=== PATIENT | female | born 1955 | race Two or more races ===

== ENCOUNTER 2020-08-10 09:19 | Day surgery (SDC) | payer OTHER, SELFPAY ==
[2020-08-08 11:25] VITALS: BMI 27.6
--- NOTE | 2020-08-09 12:16 | HO.ANESPROP2 ---
Documented by User: Betty Parker 08/09/20 12:17 HPI - Anesthesia Eval Consult details Narrative: 65yo F for EGD PMFSH Past Medical History Medical History Back pain, chronic Diabetes High cholesterol HTN (hypertension) Migraines Surgical History Surgical History Hx of cholecystectomy Hx of colonoscopy Hx of fusion of cervical spine Hx of rectal sphincterotomy Hx of tubal ligation Social History Social History Smoking Status: Current every day smoker Packs Per Day: 0.5 Cigarettes Per Day: 10.0 Years Smoked: 45 Smoked in Last 30 Days: Yes Use of substances other than those prescribed or required for medical reasons: No Advance Directives: No Advance Directives Information Provided: No Advance Directives on File: No Meds Allergies Allergy/AdvReac Type Severity Reaction Status Date / Time No Known Allergies Allergy Verified 08/08/20 11:14 Home Medications Medication Instructions Recorded Confirmed Type atenolol 75 mg PO DAILY 08/08/20 08/10/20 History cholecalciferol (vitamin D3) 25 mcg PO DAILY 08/08/20 08/08/20 History [Vitamin D3] clonazepam 0.5 mg PO BEDTIME 08/08/20 08/08/20 History cyclobenzaprine 10 mg PO BEDTIME 08/08/20 08/08/20 History docusate sodium [DOK] 100 mg PO BID PRN 08/08/20 08/08/20 History hydrochlorothiazide 25 mg PO DAILY 08/08/20 08/08/20 History lisinopril 20 mg PO DAILY 08/08/20 08/08/20 History metformin 1,000 mg PO BEDTIME 08/08/20 08/08/20 History metformin 500 mg PO DAILY 08/08/20 08/08/20 History simvastatin 20 mg PO BEDTIME 08/08/20 08/08/20 History Exam Exam Date and Time: August 09, 2020 1216 Height,Weight and Vital Signs: Height 5 ft 1 in Weight 66.224 kg Assessment and Plan Assessment Anesthesia Assessment: Chart Reviewed Documented by User: Vinicius Wright MD 08/10/20 10:31 [facility] Past Medical History Medical History Back pain, chronic Diabetes High cholesterol HTN (hypertension) Migraines Surgical History Surgical History Hx of cholecystectomy Hx of colonoscopy Hx of fusion of cervical spine Hx of rectal sphincterotomy Hx of tubal ligation Social History Social History Smoking Status: Current every day smoker Packs Per Day: 0.5 Cigarettes Per Day: 10.0 Years Smoked: 45 Smoked in Last 30 Days: Yes Use of substances other than those prescribed or required for medical reasons: No Advance Directives: No Advance Directives Information Provided: No Advance Directives on File: No Meds Allergies Allergy/AdvReac Type Severity Reaction Status Date / Time No Known Allergies Allergy Verified 08/08/20 11:14 Home Medications Medication Instructions Recorded Confirmed Type atenolol 75 mg PO DAILY 08/08/20 08/10/20 History cholecalciferol (vitamin D3) 25 mcg PO DAILY 08/08/20 08/08/20 History [Vitamin D3] clonazepam 0.5 mg PO BEDTIME 08/08/20 08/08/20 History cyclobenzaprine 10 mg PO BEDTIME 08/08/20 08/08/20 History docusate sodium [DOK] 100 mg PO BID PRN 08/08/20 08/08/20 History hydrochlorothiazide 25 mg PO DAILY 08/08/20 08/08/20 History lisinopril 20 mg PO DAILY 08/08/20 08/08/20 History metformin 1,000 mg PO BEDTIME 08/08/20 08/08/20 History metformin 500 mg PO DAILY 08/08/20 08/08/20 History simvastatin 20 mg PO BEDTIME 08/08/20 08/08/20 History Documented by User: David Maravilla MD 08/10/20 10:59 PMFSH Past Medical History Medical History Back pain, chronic Diabetes High cholesterol HTN (hypertension) Migraines Surgical History Surgical History Hx of cholecystectomy Hx of colonoscopy Hx of fusion of cervical spine Hx of rectal sphincterotomy Hx of tubal ligation Social History Social History Smoking Status: Current every day smoker Packs Per Day: 0.5 Cigarettes Per Day: 10.0 Years Smoked: 45 Smoked in Last 30 Days: Yes Use of substances other than those prescribed or required for medical reasons: No Advance Directives: No Advance Directives Information Provided: No Advance Directives on File: No Meds Allergies Allergy/AdvReac Type Severity Reaction Status Date / Time No Known Allergies Allergy Verified 08/08/20 11:14 Home Medications Medication Instructions Recorded Confirmed Type atenolol 75 mg PO DAILY 08/08/20 08/10/20 History cholecalciferol (vitamin D3) 25 mcg PO DAILY 08/08/20 08/08/20 History [Vitamin D3] clonazepam 0.5 mg PO BEDTIME 08/08/20 08/08/20 History cyclobenzaprine 10 mg PO BEDTIME 08/08/20 08/08/20 History docusate sodium [DOK] 100 mg PO BID PRN 08/08/20 08/08/20 History hydrochlorothiazide 25 mg PO DAILY 08/08/20 08/08/20 History lisinopril 20 mg PO DAILY 08/08/20 08/08/20 History metformin 1,000 mg PO BEDTIME 08/08/20 08/08/20 History metformin 500 mg PO DAILY 08/08/20 08/08/20 History simvastatin 20 mg PO BEDTIME 08/08/20 08/08/20 History Exam Airway Mallampati Class: II TM Dist: >3cm Neck ROM: Full Heart: rrr Lungs: nl Other: ao Assessment and Plan Assessment Anesthesia Assessment: Anesthesia Plan Discussed, Smoking Cess. Discussed and Chart Reviewed Final Anesthetic Review NPO: No ASA Class: III Final Preanesthetic Review: No Changes in Pt Med Stat, Meds/Allgs Chart Reviewed, Consent Obtained/Reviewed and Anes Risks/Benef Reviewed Patient Risk: Intermediate Anesthetic Plan Anesthetic Plan: MAC: Disposition: Standard PACU
[2020-08-10 09:47] VITALS: BP 148/76; PULSE 65; RESP 18; TEMP 36.4; O2SAT 100
[2020-08-10 09:49] LABS: Glucose, Whole Blood 159 mg/dL (60-115)
--- NOTE | 2020-08-10 09:58 | P.HPSUR_ITS ---
Pre-Procedural Eval Section B Chief Complaint: Epigastric Pain Details of Present Illness: 6 months of cramping epigastric pain, Relevant Family History (Specify if Yes): No Relevant Social History: Tobacco Use Present Medications: see Short Stay Collaborative assessment Medical History: Significant History (see below) History of Previous Operations: Relevant previous surgery/procedure and date(s) (cholecystectomy,migraine, DM, HTN, back surgery) Allergies: Allergies Allergy/AdvReac Type Severity Reaction Status Date / Time No Known Allergies Allergy Verified 08/08/20 11:14 Review of Systems Sugical H&P ROS: Negative: Constitution, Cardiovascular, Respiratory, Neurological, Psychiatric, Hem-Onc, Allergic/Immunologic, Gastrointestinal, Genitourinary, Musculoskeletal, Integumentary, Endocrine and Eyes/Ears/Nose/Throat Exam Surgical H&P Exam: Normal: HEENT, Normal: Heart, Normal: Lungs, Normal: Extremit ies, Normal: Skin and Normal: Neurological and Significant Findings: Abdomen (tender epigastrium) Plan Diagnosis/Plan: Unchanged Patient has been examined and remains a candidate for the planned procedure, EGD
--- NOTE | 2020-08-10 10:00 | PM.OP ---
Brief Operative Note Date of procedure: 08/10/20 Pre-op diagnosis: epigastric pain Post-op diagnosis: same Procedure: egd, see op note Surgeon: Misha Valencia MD Anesthesia: MAC Estimated blood loss (mL): 0 Condition: stable Disposition: PACU
--- NOTE | 2020-08-10 10:01 | W.PM.OPN ---
Operative Note Operative Note Narrative: Procedure Description: EGD FLEXIBLE TRANSORAL UPPER GASTROINTESTINAL ENDOSCOPY UPPER ENDOSCOPY Consent: Indications for the procedure and potential complications of bleeding, perforation, reaction to medications and missed diagnosis were discussed with the patient and informed consent was obtained. Instrument: Olympus GIF H 190 J mid size upper endoscope Monitoring: Vital signs and clinical assessment, continuous EKG monitoring, Pulse oximetry, Carbon Dioxide monitoring and blood pressure monitoring were done throughout the procedure. Procedure: The patient was placed in the left lateral decubitis position and pre-procedure medications were administered and a bite block was placed. The endoscope was inserted into the mouth and advanced under direct vision to the third part of duodenum. A careful inspection was made as the upper endoscope was withdrawn including a retroflexed examination of the proximal stomach; Findings and interventions are described below. Findings: Larynx:normal Esophagus: GE junction at 38 cm, diaphragm hiatus at 38 cm, no varices, mild LA grade A esophagitis noted Stomach: Patchy gastric erythema. Biopsies were obtained. Grade 2 flap valve on retroflexed examination of the cardia. Duodenum: bulabr duodenitis, second part of duodenum with severe villous atrophy, scalloped coarse and irregular mucosa , bx taken Intervention: Biopsies as noted above Impression/Findings: esophagitis gastritis duodenitis, enteropathy PLAN: await results might need celiac serology and testing, will await biopsy results
[2020-08-10] MEDS: Lactated Ringers 1,000 ML 100 ML IVCONT (10:02)
[2020-08-10 11:22] VITALS: BP 163/83; PULSE 76; RESP 16; TEMP 36.2; O2SAT 100
[2020-08-10 11:35] VITALS: BP 123/68; PULSE 69; RESP 16; TEMP 36.2; O2SAT 99
--- NOTE | 2020-08-10 12:03 | HO.POSTANES ---
Post Anesthesia Evaluation Post Anesthesia Evaluation Vital Signs: Vital Signs Temp Pulse Resp BP Pulse Ox 08/10/20 11:35 97.2 F 69 16 123/68 99 08/10/20 11:22 97.2 F 76 16 163/83 H 100 08/10/20 09:47 97.5 F 65 18 148/76 H 100 Anesthesia: Monitored Mental Status: Awake Pain Control: Satisfactory Nausea/Vomiting: None Hydration: Adequate Anesthesia-Related Issues: No Anes. Related Issues
== END 2020-08-10 12:31 | disposition home or self-care (01) ==
PROVIDERS: PCP Nurse Practitioner Family; Visit Provider Internal Medicine Gastroenterology
PROC: 0DJ08ZZ Inspection of Upper Intestinal Tract, Via Natural or Artificial Opening Endoscopic (ICD-10-PCS; CPT 43235; principal; 2020-08-10 10:40)
DX: K29.50 Unspecified chronic gastritis without bleeding (principal); K20.90 Esophagitis, unspecified without bleeding; K29.80 Duodenitis without bleeding; K63.9 Disease of intestine, unspecified; K44.9 Diaphragmatic hernia without obstruction or gangrene; I10 Essential (primary) hypertension; E11.9 Type 2 diabetes mellitus without complications; E55.9 Vitamin D deficiency, unspecified; E78.00 Pure hypercholesterolemia, unspecified; Z79.84 Long term (current) use of oral hypoglycemic drugs; Z79.899 Other long term (current) drug therapy; Z90.49 Acquired absence of other specified parts of digestive tract; F17.210 Nicotine dependence, cigarettes, uncomplicated
CPT/HCPCS: 43239; 82947; 88305; 88342

== ENCOUNTER 2020-08-31 10:30 | Outpatient (REF) | payer OTHER, SELFPAY ==
--- NOTE | 2020-08-31 | MM_ITS ---
EXAMINATION: MM SCREENING DIGITAL BREAST TOMOSYNTHESIS, BILATERAL CLINICAL INFORMATION: Screening. Asymptomatic. The lifetime risk of breast cancer based on the Tyrer-Cuzick Model is 4.1%. COMPARISON: Mammography: March 11, 2019 and studies dating back to August 04, 2012 TECHNIQUE: Digital breast tomosynthesis is performed in both the craniocaudal and mediolateral oblique views along with computer-aided detection (CAD). Synthesized 2D images are generated from the tomosynthesis. FINDINGS: The breasts are heterogeneously dense, which may obscure small masses (ACR BI-RADS breast composition Category c). There are no significant masses, abnormal calcifications, or other abnormalities. MM/MM tomosynthesis screening BI IMPRESSION: There are no significant changes from prior study. ASSESSMENT: BI-RADS 1: Negative RECOMMENDATION: Routine annual mammography screening. This patient's information was entered into a reminder system with a target due date for their next mammogram.
== END 2020-08-31 10:31 | disposition home or self-care (01) ==
LOC: HO.MAMMO 10:30
PROVIDERS: PCP Nurse Practitioner Family; Visit Provider Nurse Practitioner Family
DX: Z12.31 Encounter for screening mammogram for malignant neoplasm of breast (principal)
CPT/HCPCS: 77063; 77067

== ENCOUNTER 2020-09-08 12:22 | Outpatient (REF) | payer OTHER, SELFPAY | END 2020-09-08 12:23 | disposition home or self-care (01) | LOC: HO.LAB 12:22 | PROVIDERS: Visit Provider Internal Medicine | DX: Z20.828 Contact with and (suspected) exposure to other viral communicable diseases (principal) | CPT/HCPCS: C9803; U0003 ==

== ENCOUNTER → 2020-09-27 10:35 | Outpatient (BNVA) | payer OTHER, SELFPAY | PROVIDERS: PCP Nurse Practitioner Family; Referring Provider Nurse Practitioner Family; Visit Provider Anesthesiology | DX: M47.816 Spondylosis without myelopathy or radiculopathy, lumbar region (principal) | CPT/HCPCS: 99202 ==

== ENCOUNTER → 2021-03-08 10:52 | Outpatient (BNVA) | payer OTHER, SELFPAY | PROVIDERS: PCP Nurse Practitioner Family; Visit Provider Nurse Practitioner | DX: Z13.89 Encounter for screening for other disorder (principal) | CPT/HCPCS: Q3014 ==

== ENCOUNTER → 2021-05-23 12:21 | Outpatient (BNVA) | payer OTHER, SELFPAY | PROVIDERS: PCP General Practice; Referring Provider General Practice; Visit Provider Internal Medicine Cardiovascular Disease | DX: I10 Essential (primary) hypertension (principal); E78.00 Pure hypercholesterolemia, unspecified | CPT/HCPCS: 93005; 99202 ==

== ENCOUNTER 2021-05-28 10:10 | Outpatient (REF) | payer OTHER, SELFPAY ==
[2021-05-28 11:14] LABS: Anion Gap 15 (12-20); Blood Urea Nitrogen 17 mg/dL (9-16); Calcium 10.1 mg/dL (8.4-10.2); Carbon Dioxide 28 mmol/L (22-29); Chloride 103 mmol/L (96-108); Estimated Glomerular Filt Rate 54; Potassium 4.6 mmol/L (3.3-5.1); Sodium 141 mmol/L (135-145)
[2021-05-28 11:41] LABS: Glucose Urine UA >=1000 MG/DL (NEG); Leukocyte Esterase Urine NEG (NEG); Nitrite Urine NEG (NEG); Specific Gravity - Urine 1.015 (1.005-1.025); Urine Blood NEG (NEG); Urine Ketones NEG (NEG); Urine Protein NEG (NEG-TRACE)
[2021-05-28 11:56] LABS: Appearance Urine CLEAR; Color Urine YELLOW
[2021-05-28 12:00] LABS: RBC Urine 0-2 /HPF (0); Squamous Epithelial Cell Urine 1+ /LPF; WBC Urine 0-2 /HPF (0-4)
[2021-05-28 12:10] LABS: Creatinine Urine 58.14 mg/dL; Microalbum/Creatinine Ratio Ur 135.8 ug/mg cr; Protein/Creatinine Ratio, Ur 0.26 (<0.2); Total Protein Urine Random 15 mg/dL (<12)
== END 2021-05-28 10:11 | disposition home or self-care (01) ==
LOC: HO.LAB 10:10
PROVIDERS: PCP General Practice; Visit Provider Internal Medicine Nephrology
DX: R80.1 Persistent proteinuria, unspecified (principal); N18.2 Chronic kidney disease, stage 2 (mild); E11.21 Type 2 diabetes mellitus with diabetic nephropathy; N20.0 Calculus of kidney; F17.200 Nicotine dependence, unspecified, uncomplicated
CPT/HCPCS: 36415; 80051; 81001; 82043; 82310; 82565; 84156; 84520

== ENCOUNTER → 2021-07-09 10:24 | Outpatient (REF) | payer OTHER, SELFPAY ==
--- NOTE | 2021-07-09 10:26 | CA_ITS ---
Transthoracic Echocardiogram Patient (Last, First, Middle): Stephanie Luz, Gender: Female Date of : 1955 Age: 66 Procedure Date: 07/09/2021 Procedure Type: Transthoracic Echocardiogram Location: OP Height: 154.94 cm Weight: 70.31 kg BSA: 1.70 m2 Heart Rate: bpm BP: 128 / 80 mmHg Seo Manager: Referring MD: Kaushik Horn MD Symptoms: I42.9 - Cardiomyopathy, unspecified Study Quality: Fair ECG Rhythm: Sinus Conclusions: - Normal left ventricular size and systolic function. - There is mildly increased left ventricular wall thickness. - Normal left ventricular filling pressures. - Normal right ventricular cavity size and systolic function. - The left atrium is moderately dilated. - There is no evidence of pericardial effusion. Findings Left Ventricle Normal left ventricular size and systolic function. There is mildly increased left ventricular wall thickness. The visually estimated ejection fraction is between 55-60%. There is no evidence of regional wall motion abnormalities. Diastolic function is indeterminate on the basis of available data. Spectral Doppler is indicative of an impaired relaxation filling pattern. Normal left ventricular filling pressures. Right Ventricle Normal right ventricular cavity size and systolic function. Atria The left atrium is moderately dilated. Aortic Valve Normal aortic valve structure and function. There is no aortic valve stenosis. There is no aortic valve regurgitation. Mitral Valve Normal mitral valve structure and function. There is no mitral valve regurgitation. There is no mitral valve stenosis. Pulmonic Valve Normal pulmonic valve structure and function. There is no pulmonic valve regurgitation. Tricuspid Valve Normal tricuspid valve structure and function. There is no tricuspid valve regurgitation. Tricuspid regurgitation envelope is inadequate for calculation of right ventricular systolic pressure. Normal right atrial pressure. Great Vessels The pulmonary artery was not well visualized. There is mild dilatation of the ascending aorta. Venous The inferior vena cava is normal in size and collapses greater than 50% with inspiration. Pericardium/Pleural There is no evidence of pericardial effusion. Prior Study Comparison No prior study available for comparison. Measurements 2D Linear Measurements IVSd: 1.03 0.6-0.9/0.6-1.0 cm LVIDd: 4.50 3.9-5.3/4.2-5.9 cm LVIDd Index: 2.65 2.4-3.2/2.2-3.1 cm/m2 LVIDs: 2.68 2.0-3.6 cm LVPWd: 1.04 0.7-1.1 cm Ao Root: 2.90 2.1-3.5 cm LA Diam: 3.50 2.7-3.8/3.0-4.0 cm LAIDs Index: 2.06 1.5-2.3 cm/m2 LV Mass: 200.17 67-162/88-224 g LV Mass Index: 117.75 43-95/49-115 g/m2 LVOT Diam: 2.00 3.0+(-)1.3 cm Mitral Valve MV Pk E: 0.55 MV PK A: 0.68 MV Decel Time: 254.00 E/A: 0.80 E'Lateral: 6.64 E'Medial: 6.85 E/E' Med: 8.10 E/E' Lat: 8.30 PHT: 74.00 MVA PHT: 2.97 Decel [place]: 2.18 Aortic Valve AoV Pk Bishop: 1.26 AoV Mn Bishop: 0.79 AoV VTI: 0.30 AoV Pk Grad: 6.00 Aov Mn Grad: 3.00 CONCEPCION Cont.VTI: 2.01 LVOT LVOT Pk Bishop: 0.82 LVOT Mn Bishop: 0.51 LVOT VTI: 0.19 LVOT Pk Grad: 3.00 LVOT Mn Grad: 1.00 LVOT Diam: 2.00 LVOT Area: 3.14 Diastolic Function MV Pk E: 0.55 MV Pk A: 0.68 E/A: 0.80 E'Medial: 6.85 E/E' Med: 8.10 E' Laterial: 6.64 E/E' Lat: 8.30 Tricuspid Valve TR Pk Bishop: 2.24 TR Pk Grad: 20.00 Great Vessels Aorta Ao Root-2D: 2.90 2.0-3.7 cm Ao Asc: 3.30 2.1-3.4 cm Pulmonary Valve PV Pk Bishop: 0.75 Peak PV Grad: 2.00 Updated in Other Vendor System with Status of Final Kaushik Horn MD electronically signed on 07/09/2021 12:42:56 PM with status of Final
== END ==
LOC: HO.CARD 10:24
PROVIDERS: PCP General Practice; Visit Provider Internal Medicine Cardiovascular Disease
DX: I42.9 Cardiomyopathy, unspecified (principal); I10 Essential (primary) hypertension
CPT/HCPCS: 93306

== ENCOUNTER → 2021-09-07 12:49 | Outpatient (BNVA) | payer OTHER, SELFPAY | PROVIDERS: PCP General Practice; Visit Provider Nurse Practitioner | DX: Z13.89 Encounter for screening for other disorder (principal) | CPT/HCPCS: Q3014 ==

== ENCOUNTER 2021-09-24 12:55 | Outpatient (REF) | payer OTHER, SELFPAY ==
[2021-09-24 13:54] LABS: Anion Gap 12 (12-20); Blood Urea Nitrogen 16 mg/dL (9-16); Calcium 10.1 mg/dL (8.4-10.2); Carbon Dioxide 30 mmol/L (22-29); Estimated Glomerular Filt Rate 59
[2021-09-24 14:01] LABS: Chloride 106 mmol/L (96-108); Sodium 144 mmol/L (135-145)
[2021-09-24 14:23] LABS: Appearance Urine CLEAR; Color Urine YELLOW; Glucose Urine UA >=1000 MG/DL (NEG); Leukocyte Esterase Urine NEG (NEG); Nitrite Urine NEG (NEG); Specific Gravity - Urine 1.015 (1.005-1.025); Urine Blood TRACE (NEG); Urine Ketones NEG (NEG); Urine Protein NEG (NEG-TRACE)
[2021-09-24 14:33] LABS: Squamous Epithelial Cell Urine 1+ /LPF
[2021-09-24 14:34] LABS: WBC Urine 0 /HPF (0-4)
[2021-09-24 14:49] LABS: Creatinine Urine 45.57 mg/dL; Microalbum/Creatinine Ratio Ur 70.2 ug/mg cr; Total Protein Urine Random < 7 mg/dL (<12)
== END 2021-09-24 12:56 | disposition home or self-care (01) ==
LOC: HO.LAB 12:55
PROVIDERS: PCP General Practice; Visit Provider Internal Medicine Nephrology
DX: E11.22 Type 2 diabetes mellitus with diabetic chronic kidney disease (principal); E11.21 Type 2 diabetes mellitus with diabetic nephropathy; N18.2 Chronic kidney disease, stage 2 (mild); F17.200 Nicotine dependence, unspecified, uncomplicated; R80.9 Proteinuria, unspecified; N20.0 Calculus of kidney
CPT/HCPCS: 36415; 80051; 81001; 82043; 82310; 82565; 84156; 84520

== ENCOUNTER 2021-09-25 14:00 | Outpatient (RCR) | payer OTHER, SELFPAY ==
[2021-09-03 12:49] VITALS: BP 128/80; PULSE 70; O2SAT 95
--- NOTE | 2021-09-03 13:59 | MHC.PT.EP ---
[facility] [place] Office [place] Office [place] Office [address] [place] [address] [address]boza [address] [phone] F: [phone] F: [phone] F: [phone] F: [phone] Physical Therapy Plan of Care Date of Evaluation: Date of Surgery: Diagnosis: This is a 66 yo female presenting to skilled PT with a script for vertigo Assessment: This is a 66 yo female presenting to skilled PT with a script for vertigo. Patient reporting dizziness for a number of years now (since at least 2013). She reports an increase in dizziness when turning to the R and rolling to the R. She reports dizziness lasts only for a few seconds. Symptoms are described as the room spinning. She has tried botox without help. She also had a hearing test which was normal. No new falls and no imaging noted. She tried PT in the past for these symptoms but did not go consistently enough. Examination shows normal oculomotor tests except for horizontal saccades, ? head thrust but patient having a hard time with cues to relax during test, (-) VBI B, and WFL cervical AROM. She was (+) for BPPV with dorita-hallpike and R steve maneuver (patient became nauseous and asked to be reassessed next session). She demos normal scores and sway with balance tests (DGI and Maurisio SOPT). S/S consistent with R PC BPPV and would benefit from PT 2x/wk for 4wks to address impairments, implement HEP and optimize functional mobility. Frequency and Duration: The patient will be seen 2x/wk for 5wks Short Term Goals: Chick Grader Goals: I in HEP No nystagmus or symptoms in any testing positions No LOB noted and normal scores on balance tests Return to work in full Treatment Plan: Modalities to reduce pain, spasms and effusion. Manual therapy to restore motion and function. Therapeutic exercise to improve strength and flexibility. Neuromuscular re-education for posture and balance. Therapeutic activities to return to functional activities of daily living. Electronically signed by: Lyric Serrano PT Please sign and return to therapist. Thank you for your referral.
--- NOTE | 2021-10-25 11:41 | MHC.PT.DC ---
[facility] [place] Office [place] Office [place] Office [address] Angie Barboza [address] [phone] F: [phone] F: [phone] F: [phone] F: [phone] Physical Therapy Discharge Report Diagnosis: This is a 66 yo female presenting to skilled PT with a script for vertigo Date of Surgery: Date of Evaluation: 09/03/21 Date of Discharge: 10/25/21 Treatments to Date: 7 Cancellations to Date: 0 No Shows to Date: 0 Discharge Status: Discharge Summary: Horizontal canal and L hallpike were (-) for nystagmus and sx. WIth R Hallpike, pt (+) fos dizziness andd R upbeat torsional nystagmus. Performed Amada and upon re-assessment, no sx or nystagmus. Performed a precautionary roll. Re-assess next visit. The patient has not bee seen since 09/25/21. Her current status is unknown. She is discharged from this physical therapy plan of care. Electronically signed by: Raquel Felipe PT, DPT Please sign and return to therapist. Thank you for your referral.
== END 2021-10-25 11:42 | disposition home or self-care (01) ==
LOC: HO.PT 14:00
PROVIDERS: Visit Provider Otolaryngology
DX: R42 Dizziness and giddiness (principal)
CPT/HCPCS: 95992; 97110; 97162

== ENCOUNTER → 2021-10-03 10:21 | Outpatient (BNVA) | payer OTHER, SELFPAY | PROVIDERS: Referring Provider General Practice; Visit Provider Internal Medicine Cardiovascular Disease | DX: I10 Essential (primary) hypertension (principal) | CPT/HCPCS: 99212 ==

== ENCOUNTER → 2021-10-05 11:50 | Outpatient (BNVA) | payer OTHER, SELFPAY | PROVIDERS: Visit Provider Nurse Practitioner | DX: K59.04 Chronic idiopathic constipation (principal); K21.9 Gastro-esophageal reflux disease without esophagitis; K90.0 Celiac disease; R10.13 Epigastric pain | CPT/HCPCS: 99212 ==

== ENCOUNTER 2021-11-16 09:03 | Outpatient (REF) | payer OTHER, SELFPAY ==
--- NOTE | ~2021-11-16 | XR_ITS ---
EXAMINATION: XR ABDOMEN WITH DECUBITUS VIEWS CLINICAL INDICATION: Chronic idiopathic constipation. COMPARISON: None TECHNIQUE: KUB. FINDINGS: There is scattered stool and gas seen in the colon without any significant distention. There are surgical jennifer in right upper quadrant from previous cholecystectomy. There is mild scoliosis. No lytic process seen. Mild scoliosis. XR/XR abdomen w decubitus IMPRESSION: No acute intra-abdominal process seen..
[2021-11-16 11:46] LABS: TSH reflex Free T4 0.93 uIU/mL (0.32-4.0)
== END 2021-11-16 09:04 | disposition home or self-care (01) ==
LOC: HO.XRAY 09:03
PROVIDERS: Visit Provider Nurse Practitioner
DX: K90.0 Celiac disease (principal); R10.13 Epigastric pain; K21.9 Gastro-esophageal reflux disease without esophagitis
CPT/HCPCS: 36415; 74021; 84443; 99212

== ENCOUNTER → 2021-11-29 07:09 | Outpatient (BNVA) | payer OTHER, SELFPAY | PROVIDERS: Visit Provider Nurse Practitioner | DX: K59.04 Chronic idiopathic constipation (principal); K21.9 Gastro-esophageal reflux disease without esophagitis; K90.0 Celiac disease | CPT/HCPCS: 99212 ==

== ENCOUNTER → 2021-12-25 12:22 | Outpatient (BNVA) | payer OTHER, SELFPAY | PROVIDERS: Visit Provider Nurse Practitioner | DX: K59.04 Chronic idiopathic constipation (principal); K21.9 Gastro-esophageal reflux disease without esophagitis; E11.9 Type 2 diabetes mellitus without complications; E78.00 Pure hypercholesterolemia, unspecified; I10 Essential (primary) hypertension; Z90.49 Acquired absence of other specified parts of digestive tract; F17.210 Nicotine dependence, cigarettes, uncomplicated | CPT/HCPCS: 99212 ==

== ENCOUNTER → 2022-01-25 12:20 | Outpatient (BNVA) | payer OTHER, SELFPAY | PROVIDERS: Visit Provider Nurse Practitioner | DX: K59.04 Chronic idiopathic constipation (principal); K21.9 Gastro-esophageal reflux disease without esophagitis; K90.0 Celiac disease; R10.13 Epigastric pain; D12.6 Benign neoplasm of colon, unspecified | CPT/HCPCS: 99212 ==

== ENCOUNTER 2022-01-28 09:31 | Outpatient (REF) | payer OTHER, SELFPAY ==
[2022-01-28 10:14] LABS: MANUAL DIFF FLAG NO
[2022-01-28 11:06] LABS: Basophils Absolute Auto 0.1 X10*3/uL (0.0-0.2); Basophils Percent Auto 0.6 % (0-2); Eosinophils Absolute Auto 0.1 X10*3/uL (0.0-0.4); Eosinophils Percent Auto 1.6 % (0-4); Hematocrit 39.9 % (37.0-47.0); Hemoglobin 13.2 g/dl (12.0-16.0); Imm Gran Abs Auto 0.04 X10*3/uL (0.00-0.03); Imm Gran Pct Auto 0.4 % (0.0-0.4); Lymphocytes Absolute Auto 2.6 X10*3/uL (1.2-4.9); Lymphocytes Percent Auto 29.2 % (20-40); Mean Corpuscular HGB Conc 33.1 g/dl (31.0-35.0); Mean Corpuscular Hemoglobin 30.1 pg (27.0-33.0); Mean Corpuscular Volume 90.9 fL (80.0-98.0); Mean Platelet Volume 10.8 fL (9.4-12.3); Monocytes Absolute Auto 0.8 X10*3/uL (0.1-1.2); Monocytes Percent Auto 8.4 % (2-11); Neutrophils Absolute Auto 5.4 x10*3/uL (2.0-8.3); Neutrophils Percent Auto 59.8 % (45-73); Platelet Count 268 X10*3/uL (160-400); Red Blood Count 4.39 X10*6/uL (4.20-5.50); Red Cell Distribution Width 13.9 % (11.0-16.0)
== END 2022-01-28 09:32 | disposition home or self-care (01) ==
LOC: HO.LAB 09:31
PROVIDERS: PCP General Practice; Visit Provider Nurse Practitioner
DX: D12.6 Benign neoplasm of colon, unspecified (principal)
CPT/HCPCS: 36415; 85025

== ENCOUNTER 2022-02-06 11:12 | Outpatient (REF) | payer OTHER, SELFPAY ==
--- NOTE | ~2022-02-06 | XR_ITS ---
EXAMINATION: XR SHOULDER, BILATERAL CLINICAL INFORMATION: Shoulder pain. COMPARISON: None. TECHNIQUE: 4 views of each shoulder. FINDINGS: Right Shoulder: 4 views of the right shoulder demonstrate mild degeneration at the AC joint. There is degeneration in the inferior glenohumeral articulation. There is mild acromial spurring. Mild sclerotic change at the insertion of the superior rotator cuff. There is no acute bony finding. Left Shoulder: 4 views of the left shoulder demonstrate mild degeneration at the AC joint. Mild acromial spurring. There is sclerotic change at the insertion of the superior rotator cuff and some degeneration of the inferior glenohumeral articulation. There is no acute bony finding. XR/XR shoulder LT min 2V IMPRESSION: Mild to moderate Degenerative changes bilaterally. Findings which may preclude to impingement. If further evaluation is warranted recommend MRI.
--- NOTE | ~2022-02-06 | XR_ITS ---
EXAMINATION: XR SHOULDER, BILATERAL CLINICAL INFORMATION: Shoulder pain. COMPARISON: None. TECHNIQUE: 4 views of each shoulder. FINDINGS: Right Shoulder: 4 views of the right shoulder demonstrate mild degeneration at the AC joint. There is degeneration in the inferior glenohumeral articulation. There is mild acromial spurring. Mild sclerotic change at the insertion of the superior rotator cuff. There is no acute bony finding. Left Shoulder: 4 views of the left shoulder demonstrate mild degeneration at the AC joint. Mild acromial spurring. There is sclerotic change at the insertion of the superior rotator cuff and some degeneration of the inferior glenohumeral articulation. There is no acute bony finding. XR/XR shoulder RT min 2V IMPRESSION: Mild to moderate Degenerative changes bilaterally. Findings which may preclude to impingement. If further evaluation is warranted recommend MRI.
== END 2022-02-06 11:13 | disposition home or self-care (01) ==
LOC: HO.XRAY 11:12
PROVIDERS: PCP General Practice; Visit Provider General Practice
DX: M25.512 Pain in left shoulder (principal); M25.511 Pain in right shoulder
CPT/HCPCS: 73030

== ENCOUNTER → 2022-03-01 10:42 | Outpatient (BNVA) | payer OTHER, SELFPAY | PROVIDERS: PCP General Practice; Visit Provider Orthopaedic Surgery | DX: M75.41 Impingement syndrome of right shoulder (principal); E11.9 Type 2 diabetes mellitus without complications | CPT/HCPCS: 20610; 99202; J1100 ==

== ENCOUNTER → 2022-03-21 11:18 | Outpatient (BNVA) | payer OTHER, SELFPAY | PROVIDERS: PCP General Practice; Visit Provider Nurse Practitioner | DX: K90.0 Celiac disease (principal); K59.04 Chronic idiopathic constipation; D12.6 Benign neoplasm of colon, unspecified | CPT/HCPCS: 99212 ==

== ENCOUNTER → 2022-03-27 10:50 | Outpatient (BNVA) | payer OTHER, SELFPAY | PROVIDERS: PCP General Practice; Referring Provider General Practice; Visit Provider Internal Medicine Cardiovascular Disease | DX: I10 Essential (primary) hypertension (principal); G47.30 Sleep apnea, unspecified; Z79.899 Other long term (current) drug therapy | CPT/HCPCS: 99212 ==

== ENCOUNTER 2022-05-03 11:00 | Outpatient (RCR) | payer OTHER, SELFPAY ==
--- NOTE | 2022-03-25 11:50 | MHC.PT.EP ---
[facility] [place] Office [place] Office [place] Office [address] Angie Barboza [address] [phone] F: [phone] F: [phone] F: [phone] F: [phone] Physical Therapy Plan of Care Date of Evaluation: Date of Surgery: n/a Diagnosis: impingement syndrome of R shoulder Assessment: Patient is a 66 year old female presenting to PT with complaints of pain in her R shoulder. Pt reports onset of pain began about 3 months ago due to insidious onset. She presents today with impairments in pain, AROM, strength, and posture. Pt's current occupation is [employer] H[employer] W[employer]ER, with baseline physical activities including reaching, lifting, ADLs. 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 Clinical presentation today is most consistent with signs and sx associated with possible RC involvement and pt will benefit from skilled PT to address the following problems and impairments noted upon evaluation: pain, AROM, strength, and posture. These problems limit the patient with the following functional activities: lifting, reaching, ADLs. The prescribed treatment plan of care is medically necessary. Co-morbidities of DM, HTN, hx cervical fusion 2004 were identified and taken into considerations of plan of care. Pt was educated on HEP, role of PT, prognosis, POC. Frequency and Duration: The patient will be seen 2 x week x 4 weeks Short Term Goals: Pt will demonstrate improved shoulder abd and flexion AROM by 20 degrees to 125 and 150 respectively in 2 weeks. Pt will demonstrate improved R shoulder MMT to by 1/3 MMT for in 2 weeks. Pt will demonstrate improved postural awareness by sitting with biomechanically correct posture without cues throughout session to improve overall postural function in 2 weeks. Fdc Goals: Pt will demonstrate improved SPADI score by 13 points in 4 weeks for improved functional mobility. Pt will demonstrate ability to reach with min to no pain in 4 weeks for return to PLOF. Pt will demonstrate ability to lift household items with min to no pain in 4 weeks for improved tolerance to ADLs. Treatment Plan: Modalities to reduce pain, spasms and effusion. Manual therapy to restore motion and function. Therapeutic exercise to improve strength and flexibility. Neuromuscular re-education for posture and balance. Therapeutic activities to return to functional activities of daily living. Electronically signed by: Vivienne Aguilar, PT, DPT, ATC Please sign and return to therapist. Thank you for your referral.
--- NOTE | 2022-05-03 11:50 | MHC.PT.DC ---
[facility] [place] Office [place] Office [place] Office [address] Angie Barboza [address] [phone] F: [phone] F: [phone] F: [phone] F: [phone] Physical Therapy Discharge Report Diagnosis: impingement syndrome of R shoulder Date of Surgery: n/a Date of Evaluation: 03/25/22 Date of Discharge: Treatments to Date: 12 Cancellations to Date: No Shows to Date: Discharge Status: Discharge Summary: Pt has unfortunately made only minimal improvement since beginning PT. She is continuing to have quite a bit of pain and at times this is for no explained reason although it is slightly improved. Her ROM continues to be limited especially in abduction with associated pain. Various treatment interventions have been trialed without success and it appears max benefits of PT have been provided. Skilled PT is no longer indicated at this time. Discussion had with pt that I recommend following up with her doctor for further management of her pain and possibly imaging. Pt in agreement with this plan and d/c today. Electronically signed by: Please sign and return to therapist. Thank you for your referral.
--- NOTE | 2022-05-03 11:52 | MHC.PT.DC ---
[facility] [place] Office [place] Office [place] Office [address]boza [address] [phone] F: [phone] F: [phone] F: [phone] F: [phone] Physical Therapy Discharge Report Diagnosis: impingement syndrome of R shoulder Date of Surgery: n/a Date of Evaluation: 03/25/22 Date of Discharge: 05/03/22 Treatments to Date: 12 Cancellations to Date: 0 No Shows to Date: 1 Discharge Status: Independent with HEP Recommend MD Follow-up Discharge Summary: Pt has unfortunately made only minimal improvement since beginning PT. She is continuing to have quite a bit of pain and at times this is for no explained reason although it is slightly improved. Her ROM continues to be limited especially in abduction with associated pain. Various treatment interventions have been trialed without success and it appears max benefits of PT have been provided. Skilled PT is no longer indicated at this time. Discussion had with pt that I recommend following up with her doctor for further management of her pain and possibly imaging. Pt in agreement with this plan and d/c today. Electronically signed by: Vivienne Aguilar, PT, DPT, ATC Please sign and return to therapist. Thank you for your referral.
== END 2022-05-03 11:52 | disposition home or self-care (01) ==
LOC: HO.PTCHIC 11:00
PROVIDERS: Visit Provider Orthopaedic Surgery
DX: M75.41 Impingement syndrome of right shoulder (principal)
CPT/HCPCS: 97110; 97140; 97161

== ENCOUNTER 2022-05-15 11:37 | Outpatient (REF) | payer OTHER, SELFPAY ==
--- NOTE | ~2022-05-15 | MM_ITS ---
EXAMINATION: MM SCREENING DIGITAL BREAST TOMOSYNTHESIS, BILATERAL CLINICAL INFORMATION: Screening. Asymptomatic. The lifetime risk of breast cancer based on the Tyrer-Cuzick Model is 4%. COMPARISON: Mammography: 08/31/2020, 07/12/2019, 02/25/2018 TECHNIQUE: Digital breast tomosynthesis is performed in both the craniocaudal and mediolateral oblique views along with computer-aided detection (CAD). Synthesized 2D images are generated from the tomosynthesis. FINDINGS: There are scattered areas of fibroglandular density (ACR BI-RADS breast composition Category b). There are no significant masses, abnormal calcifications, or other abnormalities. Parenchymal pattern is similar to prior studies. The axilla and skin contours are unremarkable. MM/MM tomosynthesis screening BI IMPRESSION: No mammographic evidence of malignancy. ASSESSMENT: BI-RADS 1: Negative RECOMMENDATION: Routine annual mammography screening. This patient's information was entered into a reminder system with a target due date for their next mammogram.
== END 2022-05-15 11:38 | disposition home or self-care (01) ==
LOC: HO.MAMMO 11:37
PROVIDERS: PCP General Practice; Visit Provider General Practice
DX: Z12.31 Encounter for screening mammogram for malignant neoplasm of breast (principal)
CPT/HCPCS: 77063; 77067

== ENCOUNTER 2022-06-20 13:30 | Outpatient (REF) | payer OTHER, SELFPAY ==
[2022-06-20 14:38] LABS: Anion Gap 15 (12-20); Blood Urea Nitrogen 16 mg/dL (9-16); Calcium 9.9 mg/dL (8.4-10.2); Carbon Dioxide 27 mmol/L (22-29); Chloride 105 mmol/L (96-108); Estimated Glomerular Filt Rate > 60; Sodium 143 mmol/L (135-145)
[2022-06-20 16:24] LABS: Appearance Urine Clear; Color Urine Yellow; Glucose Urine UA >=1000 mg/dL (Negative); Leukocyte Esterase Urine Negative (Negative); Nitrite Urine Negative (Negative); PH 5.5 (5.0-9.0); Specific Gravity - Urine 1.025 (1.005-1.025); Urine Blood Trace (Negative); Urine Ketones Negative (Negative); Urine Protein Negative (Neg-Trace)
[2022-06-20 16:33] LABS: WBC Urine 0-5 /HPF (0-5)
[2022-06-20 16:34] LABS: Bacteria Urine Trace (None Seen)
[2022-06-20 16:39] LABS: Hyaline Casts Urine 0-2 /LPF (0-2)
[2022-06-20 17:23] LABS: Creatinine Urine 89.76 mg/dL; Microalbum/Creatinine Ratio Ur 22.2 ug/mg cr; Total Protein Urine Random 9 mg/dL (<12)
== END 2022-06-20 13:31 | disposition home or self-care (01) ==
LOC: HO.LAB 13:30
PROVIDERS: PCP General Practice; Visit Provider Internal Medicine Nephrology
DX: E11.22 Type 2 diabetes mellitus with diabetic chronic kidney disease (principal); E11.21 Type 2 diabetes mellitus with diabetic nephropathy; N18.31 Chronic kidney disease, stage 3a; R80.1 Persistent proteinuria, unspecified
CPT/HCPCS: 36415; 80051; 81001; 82043; 82310; 82565; 84156; 84520

== ENCOUNTER → 2022-07-04 11:10 | Outpatient (BNVA) | payer OTHER, SELFPAY | PROVIDERS: PCP General Practice; Visit Provider Orthopaedic Surgery | DX: M75.41 Impingement syndrome of right shoulder (principal); R20.0 Anesthesia of skin; Z98.1 Arthrodesis status | CPT/HCPCS: 99212 ==

== ENCOUNTER 2022-07-17 12:39 | Outpatient (REF) | payer OTHER, SELFPAY ==
--- NOTE | ~2022-07-17 | MR_ITS ---
EXAMINATION: MR SHOULDER WITHOUT CONTRAST, RIGHT CLINICAL INFORMATION: Right shoulder pain. COMPARISON: X-ray of the right shoulder January 2022. TECHNIQUE: MRI of the shoulder without contrast was performed on a high-field scanner. FINDINGS: ROTATOR CUFF: Supraspinatus: There is mild heterogeneous increased T2 signal along the intrasubstance and articular surface of the distal anterior portion of the tendon extending to the insertion without clearly defined margins. This is compatible with prominent tendinosis or small areas of partial tearing without a measurable defect. This extends approximately 1 cm transverse and 1 cm AP. The muscle is normal. The remaining rotator cuff muscles and tendons are normal. BICEPS: Normal. CORACOACROMIAL ARCH: There is ulmj-jl-unqthvdv hypertrophic osteoarthritis of the acromioclavicular joint. The undersurface of the acromion is flat without subacromial spur. BURSA: Normal. LABRUM/CAPSULE: There is subtle heterogeneous increased signal in the superior aspect of the posterior labrum compatible with degenerative change or nondisplaced degenerative tearing. GLENOHUMERAL JOINT/MARROW: There are marginal osteophytes along the inferior aspect of the glenohumeral joint most evident on the humeral side. There is nonuniform up to high-grade cartilage loss throughout the inferomedial aspect of the humeral head. Cartilage heterogeneity along the apex of the humeral head. Minimal heterogeneity of the glenoid cartilage. Findings indicative of vdyp-hd-dsqymlvu glenohumeral arthrosis. There is a mild joint effusion and synovitis. MR/MR shoulder RT wo con IMPRESSION: Hlpo-rp-yfdlxhno osteoarthritis of the glenohumeral joint with a mild joint effusion and synovitis. Mild abnormality of the supraspinatus tendon compatible with prominent tendinosis or minimal partial tearing without a clearly measurable tendon defect Swad-zi-fsqjstjr hypertrophic osteoarthritis of the acromioclavicular joint.
== END 2022-07-17 12:40 | disposition home or self-care (01) ==
LOC: HO.MRI 12:39
PROVIDERS: Visit Provider General Practice
DX: M75.41 Impingement syndrome of right shoulder (principal)
CPT/HCPCS: 73221

== ENCOUNTER → 2022-08-12 10:09 | Outpatient (BNVA) | payer OTHER, SELFPAY | PROVIDERS: PCP General Practice; Visit Provider Internal Medicine | DX: M75.41 Impingement syndrome of right shoulder (principal); M47.816 Spondylosis without myelopathy or radiculopathy, lumbar region; M53.3 Sacrococcygeal disorders, not elsewhere classified; Z98.1 Arthrodesis status | CPT/HCPCS: 20611; 99202; J2795; J3300 ==

== ENCOUNTER → 2022-08-21 10:44 | Outpatient (BNVA) | payer OTHER, SELFPAY | PROVIDERS: PCP General Practice; Visit Provider Nurse Practitioner | DX: K59.04 Chronic idiopathic constipation (principal); R10.13 Epigastric pain; K90.0 Celiac disease; D12.6 Benign neoplasm of colon, unspecified; R11.0 Nausea | CPT/HCPCS: 99212 ==

== ENCOUNTER → 2022-08-22 10:56 | Outpatient (BNVA) | payer OTHER, SELFPAY | PROVIDERS: PCP General Practice; Visit Provider Orthopaedic Surgery | DX: M19.011 Primary osteoarthritis, right shoulder (principal) | CPT/HCPCS: 99212 ==

== ENCOUNTER → 2022-09-17 10:08 | Outpatient (BNVA) | payer OTHER, SELFPAY | PROVIDERS: PCP General Practice; Visit Provider Nurse Practitioner Family | DX: G43.709 Chronic migraine without aura, not intractable, without status migrainosus (principal); M54.2 Cervicalgia | CPT/HCPCS: 99202 ==

== ENCOUNTER → 2022-09-18 10:47 | Outpatient (BNVA) | payer OTHER, SELFPAY | PROVIDERS: PCP General Practice; Visit Provider Nurse Practitioner | DX: K59.04 Chronic idiopathic constipation (principal); Z87.19 Personal history of other diseases of the digestive system; Z79.899 Other long term (current) drug therapy | CPT/HCPCS: 99212 ==

== ENCOUNTER → 2022-10-07 10:54 | Outpatient (BNVA) | payer OTHER, SELFPAY | PROVIDERS: PCP General Practice; Visit Provider Internal Medicine | DX: M19.011 Primary osteoarthritis, right shoulder (principal) | CPT/HCPCS: 20610; 20611 ==

== ENCOUNTER 2022-10-09 10:10 | Outpatient (REF) | payer OTHER, SELFPAY ==
--- NOTE | ~2022-10-09 | MR_ITS ---
EXAMINATION: MR BRAIN WITHOUT CONTRAST CLINICAL INFORMATION: Chronic migraine COMPARISON: MRI of the brain without contrast 04/16/2018 TECHNIQUE: Multiplanar multisequence MR imaging of the brain was obtained without intravenous contrast. FINDINGS: There is no acute infarct on diffusion-weighted imaging. There is no intracranial hemorrhage on iron-sensitive imaging. No extra-axial collection or mass effect/herniation. Scattered periventricular and deep white matter T2 FLAIR hyperintensities consistent with mild underlying microangiopathy. No hydrocephalus. The ventricles are normal in morphology and size. The major flow voids at the skull base are preserved. The midline structures are normal. The cerebellar tonsils are normally positioned. The craniocervical junction is normal. Degenerative disc disease and endplate spurring at C4-C5. Marrow signal is within normal limits. The visualized soft tissues are without significant abnormality. Mild scattered paranasal sinus mucosal thickening. MR/MR head/brain wo con IMPRESSION: 1. Mild chronic microangiopathy. 2. Otherwise unremarkable noncontrast MRI of the brain.
== END 2022-10-09 10:11 | disposition home or self-care (01) ==
LOC: HO.MRI 10:10
PROVIDERS: Visit Provider Nurse Practitioner Family
DX: G43.709 Chronic migraine without aura, not intractable, without status migrainosus (principal)
CPT/HCPCS: 70551

== ENCOUNTER 2022-10-18 13:00 | Outpatient (RCR) | payer OTHER, SELFPAY ==
[2022-09-24 13:03] VITALS: BP 120/85
--- NOTE | 2022-09-24 15:06 | MHC.PT.EP ---
[facility] [place] Office [place] Office [place] Office [address] [phone] F: [phone] F: [phone] F: [phone] F: [phone] Physical Therapy Plan of Care Date of Evaluation: Date of Surgery: Diagnosis: Cervicalgia and chronic migraine. Assessment: Pt is a 67 y/o female referred to PT for eval and treat of cervicalgia with migraines resulting in decreased tolerance for reading and concentrating, driving, lifting objects of weight and disturbed sleep secondary to decreased cervical ROM and strength, increased cervical accessory tissue tension, decreased scapular posture, frequent SANTIAGO and R > L cervical pain. Pt is deemed an appropriate candidate to receive skilled PT services to address their physical impairments in order to improve their functional ability. Frequency and Duration: The patient will be seen 2 x / wk x 4 wks. Short Term Goals: Initiate HEP. 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 Pt will report < 1 hour sleeplessness d/t cervical pain; initial: 2-3 hours disturbed. Pt will report moderate SANTIAGO which come infrequently; initial: severe SANTIAGO which come frequently. Pt will report I have a lot of trouble concentrating when I want to; initial: I cannot concentrate at all. Treatment Plan: Modalities to reduce pain, spasms and effusion. Manual therapy to restore motion and function. Therapeutic exercise to improve strength and flexibility. Neuromuscular re-education for posture and balance. Therapeutic activities to return to functional activities of daily living. Electronically signed by: Darwin Clark PT. Please sign and return to therapist. Thank you for your referral.
--- NOTE | 2022-10-18 13:46 | MHC.PT.DC ---
[facility] [place] Office [place] Office [place] Office [address] Angie Barboza [address] [phone] F: [phone] F: [phone] F: [phone] F: [phone] Physical Therapy Discharge Report Diagnosis: Cervicalgia and chronic migraine. Date of Surgery: Date of Evaluation: 09/24/22 Date of Discharge: 10/18/22 Treatments to Date: 7 Cancellations to Date: 0 No Shows to Date: 0 Discharge Status: Improved Function Independent with HEP Discharge Summary: She continues to tolerate STM well reporting it is relieving. Reviewed gentle stretching program and she is able to recall all exercises with good technique. Advised pt to continue with her HEP for continued gains. NDI . D/c at this time to I HEP. Electronically signed by: Catie Purdy PT, DPT Please sign and return to therapist. Thank you for your referral.
== END 2022-10-18 13:49 | disposition home or self-care (01) ==
LOC: HO.PTCHIC 13:00
PROVIDERS: PCP General Practice; Visit Provider Nurse Practitioner Family
DX: M54.2 Cervicalgia (principal); G43.709 Chronic migraine without aura, not intractable, without status migrainosus
CPT/HCPCS: 97110; 97140; 97161

== ENCOUNTER → 2022-11-19 10:47 | Outpatient (BNVA) | payer OTHER, SELFPAY | PROVIDERS: PCP General Practice; Visit Provider Nurse Practitioner Family | DX: G43.709 Chronic migraine without aura, not intractable, without status migrainosus (principal); G47.33 Obstructive sleep apnea (adult) (pediatric); G47.9 Sleep disorder, unspecified | CPT/HCPCS: 99212 ==

== ENCOUNTER → 2022-11-21 08:14 | Outpatient (REF) | payer OTHER, SELFPAY ==
--- NOTE | ~2022-11-21 | NM_ITS ---
EXAMINATION: TN RADIONUCLIDE SOLID FOOD GASTRIC EMPTYING 4-HOUR STUDY CLINICAL INFORMATION: Abdominal pain, nausea and bloating. COMPARISON: None TECHNIQUE: A standard meal consisting of 4 oz of Egg Beaters brand tagged with 0.96 microcuries Tc-99m Sulfur Colloid, 8 oz water and 2 slices of toast with jelly was administered orally to the patient. Images were obtained using a dual head gamma camera in the anterior and posterior projections over of the stomach immediately post ingestion and at hourly intervals up to 4 hours post ingestion. The anterior and posterior counts at each time interval were averaged using the geometric mean and expressed as percentage of the immediate post ingestion counts. FINDINGS: There is good visualization of activity in the stomach immediately post ingestion. As the study progresses, there is good clearance of activity from the stomach and visualization of progressively increasing small bowel activity. By the end of the study, there is almost no retention noted in the stomach. Retention in the stomach at each time interval was: 1 hour 59% (normal 37%-90%) 2 hours 25% (normal 30%-60%) 3 hours 15% 4 hours 7% (normal 0%-10%) TN/TN gastric emptying study IMPRESSION: Normal 4-hour solid food gastric emptying study (For solid meal, rapid gastric emptying is less than 30% at 60 minutes. Delayed gastric emptying criteria is more than 60% remaining at 120 minutes or more than 10% at 240 minutes. The 4-hour value is the best discriminator of a normal or abnormal result).
== END ==
LOC: HO.NUCMED 08:14
PROVIDERS: PCP General Practice; Visit Provider Nurse Practitioner
DX: R11.0 Nausea (principal)
CPT/HCPCS: 78264; A9541

== ENCOUNTER → 2022-12-13 11:04 | Outpatient (BNVA) | payer OTHER, SELFPAY | PROVIDERS: PCP General Practice; Visit Provider Nurse Practitioner | DX: K59.04 Chronic idiopathic constipation (principal); Z86.010 Personal history of colon polyps | CPT/HCPCS: 99212 ==

== ENCOUNTER → 2022-12-26 13:44 | Outpatient (BNVA) | payer OTHER, SELFPAY | PROVIDERS: PCP General Practice; Referring Provider General Practice; Visit Provider Nurse Practitioner Family | DX: I10 Essential (primary) hypertension (principal); E78.00 Pure hypercholesterolemia, unspecified; G47.33 Obstructive sleep apnea (adult) (pediatric); Z79.899 Other long term (current) drug therapy | CPT/HCPCS: 93005; 99212 ==

== ENCOUNTER → 2022-12-30 10:45 | Outpatient (BNVA) | payer OTHER, SELFPAY | PROVIDERS: PCP General Practice; Visit Provider Internal Medicine | DX: M19.011 Primary osteoarthritis, right shoulder (principal); M75.41 Impingement syndrome of right shoulder | CPT/HCPCS: 20610; 20611 ==

== ENCOUNTER 2023-01-16 11:01 | Day surgery (SDC) | payer OTHER, SELFPAY ==
[2022-11-08 10:32] VITALS: BMI 28.7
--- NOTE | 2023-01-15 10:40 | HO.ANESPROP2 ---
HPI - Anesthesia Eval Consult details Narrative: 67yo F for Colonoscopy [facility] Active Problems Active Problems: All Active Problems (Updated 11/19/22 @ 21:28 by MAURO Larios) Celiac disease (Acute) Epigastric pain (Acute) Chronic idiopathic constipation (Acute) Impingement syndrome of right shoulder (Acute) Tubular adenoma of colon (Acute) History of fusion of cervical spine (Acute) Right arm numbness (Acute) Sacroiliac joint dysfunction (Acute) Nausea (Acute) Arthritis of right shoulder region (Acute) Cervicalgia (Acute) Chronic migraine without aura (Acute) SHUN (obstructive sleep apnea) (Acute) Sleep difficulties (Acute) Diabetes (Acute) High cholesterol (Acute) HTN (hypertension) (Acute) Spondylosis of lumbar spine (Acute) Past Medical History Medical History Back pain, chronic Diabetes GERD (gastroesophageal reflux disease) High cholesterol HTN (hypertension) Migraines Spondylosis of lumbar spine Family History Family History Father History of heart attack Mother Hx of type 1 diabetes mellitus Family history of high blood pressure Surgical History Surgical History (Updated 01/10/23 @ 16:19 by Cora Mascorro RN) History of esophagogastroduodenoscopy (EGD) Hx of cholecystectomy Hx of colonoscopy Hx of fusion of cervical spine Hx of rectal sphincterotomy Hx of tubal ligation Social History Social History Alcohol intake: never Patient Tobacco Use Status: Current everyday Tobacco user Tobacco use type: Cigarette Cigarette Packs Per Day: 0.5 Cigarettes Per Day: 10.0 Years Smoked: 45 Current occupational status: employed 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 Meds Allergies Allergy/AdvReac Type Severity Reaction Status Date / Time codeine AdvReac Intermediate vertigo, Verified 01/10/23 16:22 nausea Home Medications Medication Instructions Recorded Confirmed Last Taken Type atenolol 50 mg tablet 75 mg PO DAILY 08/08/20 01/10/23 01/16/23 History cholecalciferol (vitamin D3) 25 25 mcg PO DAILY 08/08/20 01/10/23 Unknown History mcg (1,000 unit) capsule (Vitamin D3) clonazepam 0.5 mg tablet 0.5 mg PO BEDTIME 08/08/20 01/10/23 Unknown History hydrochlorothiazide 25 mg tablet 25 mg PO DAILY 08/08/20 01/10/23 Unknown History lisinopril 20 mg tablet 20 mg PO DAILY 08/08/20 01/10/23 Unknown History acetaminophen 650 mg 650 mg PO Q8H PRN Pain 03/21/22 01/10/23 Unknown History tablet,extended release (8 Hour Pain Reliever) dapagliflozin 5 mg tablet (Everettexiga) 5 mg PO DAILY 03/21/22 01/10/23 Unknown History alcohol swabs (BD Alcohol Swabs) pad topical BID 08/21/22 12/26/22 Unknown History glipizide 10 mg tablet, extended 20 mg PO DAILY 08/21/22 01/10/23 Unknown History release 24 hr lancets 28 gauge (FreeStyle #100 ea 08/21/22 12/26/22 Unknown History Lancets) melatonin 5 mg tablet 5 mg PO BEDTIME insomnia 08/21/22 01/10/23 Unknown History dulaglutide 1.5 mg/0.5 mL 1.5 mg subcut QWEEK 12/13/22 12/30/22 Unknown [facility] Exam Exam Date and Time: January 15, 2023 1040 Height,Weight and Vital Signs: Height 5 ft 1 in Weight 68.946 kg Assessment and Plan Assessment Anesthesia Assessment: Chart Reviewed
[2023-01-16 11:55] VITALS: BP 138/76; PULSE 68; RESP 18; TEMP 36.1; O2SAT 98; BMI 27.3
[2023-01-16] MEDS: Lactated Ringers 1,000 ML 100 ML IVCONT (11:58)
--- NOTE | 2023-01-16 12:08 | P.HPSUR_ITS ---
Pre-Procedural Eval Section A Date of Service: 01/16/23 Section B Chief Complaint: Hx of polyps Details of Present Illness: Back pain, chronic Diabetes GERD (gastroesophageal reflux disease) High cholesterol HTN (hypertension) Migraines Spondylosis of lumbar spine Surgical History Hx of cholecystectomy Hx of colonoscopy Hx of fusion of cervical spine Hx of rectal sphincterotomy Hx of tubal ligation Allergies: Allergies Allergy/AdvReac Type Severity Reaction Status Date / Time codeine AdvReac Intermediate vertigo, Verified 01/10/23 16:22 nausea Review of Systems Review of Systems Comment: 10 point ROS negative Exam Exam Comment: Gen appear: No acute distress HEENT: no icterus Chest: No overt resp distress Abd: soft, nontender, nondistended Psych: Stable affect, answering questions appropriately Neuro: A/Ox3 noted to move all extremities spontaneously Ext: no peripheral edema Plan Diagnosis/Plan: Unchanged I have reviewed the history and physical and performed a pertinent physical examination on my patient. No changes have occurred unless specified. Time Spent With Patient Time: Total time managing care of this patient today ____ minutes.
[2023-01-16 12:14] LABS: Glucose, Whole Blood 113 mg/dL (60-115)
--- NOTE | 2023-01-16 12:20 | P.OP_ITS ---
Operative Note Operative Note Date of Service: 01/16/23 Narrative: Procedure: Colonoscopy Indication: Personal history of polyps Endoscopist: Johanna Kuo MD Anesthesia Provider: Nilam Sosa CRNA Anesthesia type: MAC Instrument: Olympus [id number]-H190L Consent: Indication, risks vs benefits, and alternatives were discussed with the patient who gave written informed consent to proceed. EKG, pulse, pulse oximetry and blood pressure were monitored throughout the procedure. Please see anesthesia flowsheet. Procedure: The patient was brought to the procedure room and placed in the left lateral decubitus position. IV medications were administered by the anesthesia provider in attendance. A digital rectal exam was performed which was normal. A distal cap was affects to the tip of the scope and the colonoscope was then inserted through the anus and advanced through the colon to the cecum at 75 cm,and terminal ileum. Mucosa was carefully examined under high definition white light as the instrument was slowly withdrawn in a retrograde panoramic fashion. Retroflexion was performed in rectum. The procedure was not difficult. There were no immediate obvious complications. The quality of the prep was BBPS: 2+2+2 = adequate Withdrawal time 16 minutes. Limitations: No limitations. Findings: Mucosa: Normal to cecum and terminal ileum. Protruding lesions: * 1 sessile polyp of size 5 mm in ascending colon. Cold snare polypectomy was performed. The polyp was completely removed and retrieved. * 1 sessile polyp of size 10 mm in ascending colon. Hot snare polypectomy was performed. The polyp was completely removed and retrieved. * 2 sessile polyp of size 4-6 mm in sigmoid colon. Cold snare polypectomy was performed. The polyps were completely removed and retrieved. * Large internal hemorrhoids with stigmata of recent bleeding. Impression: 1. Normal colon and terminal ileum mucosa 2. Total of 4 polyps removed from ascending and sigmoid colon. 3. Internal hemorrhoids Recommendations: - Follow path results. - Repeat colonoscopy in 3 years if the large ascending colon polyp is an adenoma.
[2023-01-16] MEDS: Sodium Phosphate,Mono-Dibasic 133 ML ENEMA PR (12:42)
--- NOTE | 2023-01-16 12:48 | P.CONAN_ITS ---
HPI - Anesthesia Eval Consult details Narrative: celiac disease [facility] Active Problems Active Problems: All Active Problems (Updated 11/19/22 @ 21:28 by MAURO Larios) Celiac disease (Acute) Epigastric pain (Acute) Chronic idiopathic constipation (Acute) Impingement syndrome of right shoulder (Acute) Tubular adenoma of colon (Acute) History of fusion of cervical spine (Acute) Right arm numbness (Acute) Sacroiliac joint dysfunction (Acute) Nausea (Acute) Arthritis of right shoulder region (Acute) Cervicalgia (Acute) Chronic migraine without aura (Acute) SHUN (obstructive sleep apnea) (Acute) Sleep difficulties (Acute) Diabetes (Acute) High cholesterol (Acute) HTN (hypertension) (Acute) Spondylosis of lumbar spine (Acute) Past Medical History Medical History Back pain, chronic Diabetes GERD (gastroesophageal reflux disease) High cholesterol HTN (hypertension) Migraines Spondylosis of lumbar spine Family History Family History Father History of heart attack Mother Hx of type 1 diabetes mellitus Family history of high blood pressure Family history of problems with anesthesia: No Surgical History Surgical History (Updated 01/10/23 @ 16:19 by Cora Mascorro RN) History of esophagogastroduodenoscopy (EGD) Hx of cholecystectomy Hx of colonoscopy Hx of fusion of cervical spine Hx of rectal sphincterotomy Hx of tubal ligation History of Problems with Anesthesia: No Social History Social History Alcohol intake: never Patient Tobacco Use Status: Current everyday Tobacco user Tobacco use type: Cigarette Cigarette Packs Per Day: 0.5 Cigarettes Per Day: 10.0 Years Smoked: 45 Date Education Initiated: 01/16/23 Use of substances other than those prescribed or required for medical reasons: No Are you DNR?: No Advance Directives: No Advance Directives Information Provided: Yes Current occupational status: employed 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 Meds Allergies Allergy/AdvReac Type Severity Reaction Status Date / Time codeine AdvReac Intermediate vertigo, Verified 01/10/23 16:22 nausea Active Medications: Current Medications Lactated Ringer's (Lr) 1,000 mls @ 100 mls/hr IVCONT .Q10H KATHIA Last Admin: 01/16/23 11:58 Dose: 100 mls/hr Home Medications Medication Instructions Recorded Confirmed Last Taken Type atenolol 50 mg tablet 75 mg PO DAILY 08/08/20 01/10/23 01/16/23 History cholecalciferol (vitamin D3) 25 25 mcg PO DAILY 08/08/20 01/10/23 Unknown Histo ry mcg (1,000 unit) capsule (Vitamin D3) clonazepam 0.5 mg tablet 0.5 mg PO BEDTIME 08/08/20 01/10/23 Unknown History hydrochlorothiazide 25 mg tablet 25 mg PO DAILY 08/08/20 01/10/23 Unknown History lisinopril 20 mg tablet 20 mg PO DAILY 08/08/20 01/10/23 Unknown History acetaminophen 650 mg 650 mg PO Q8H PRN Pain 03/21/22 01/10/23 Unknown History tablet,extended release (8 Hour Pain Reliever) dapagliflozin 5 mg tablet (Farxiga) 5 mg PO DAILY 03/21/22 01/10/23 Unknown History alcohol swabs (BD Alcohol Swabs) pad topical BID 08/21/22 12/26/22 Unknown History glipizide 10 mg tablet, extended 20 mg PO DAILY 08/21/22 01/10/23 Unknown History release 24 hr lancets 28 gauge (FreeStyle #100 ea 08/21/22 12/26/22 Unknown History Lancets) melatonin 5 mg tablet 5 mg PO BEDTIME insomnia 08/21/22 01/10/23 Unknown History dulaglutide 1.5 mg/0.5 mL 1.5 mg subcut QWEEK 12/13/22 12/30/22 Unknown History subcutaneous pen injector (Trulicity) Exam Exam Date and Time: January 16, 2023 1248 Height,Weight and Vital Signs: Height 5 ft 1 in Weight 65.771 kg Last Vital Signs Temp 97.0 F 01/16/23 11:55 Pulse 68 01/16/23 11:55 Resp 18 01/16/23 11:55 BP 138/76 01/16/23 11:55 Pulse Ox 98 01/16/23 11:55 O2 Del Method Room Air 01/16/23 11:55 Pertinent Lab Results Pertinent Lab Results: Laboratory Tests 01/16/23 12:10 POC Glucose 113 Airway Mallampati Class: II TM Dist: >3cm Neck ROM: Full Loose/Missing/Broken Teeth: Yes Heart: rr Lungs: cta Assessment and Plan Assessment Anesthesia Assessment: Anesthesia Plan Discussed Final Anesthetic Review Family History of Problems with Anesthesia: No History of Problems with Anesthesia: No NPO: Yes ASA Class: II Final Preanesthetic Review: No Changes in Pt Med Stat, Meds/Allgs Chart Reviewed, Consent Obtained/Reviewed and Anes Risks/Benef Reviewed Procedure Risk: Low Anesthetic Plan Anesthetic Plan: MAC: Disposition: Standard PACU
[2023-01-16 13:50] VITALS: BP 139/67; PULSE 72; RESP 19; TEMP 36.2; O2SAT 100
[2023-01-16 14:05] VITALS: BP 142/80; PULSE 60; RESP 16; TEMP 36.2; O2SAT 100
== END 2023-01-16 14:40 | disposition home or self-care (01) ==
PROVIDERS: PCP General Practice; Visit Provider Internal Medicine
PROC: 0DJD8ZZ Inspection of Lower Intestinal Tract, Via Natural or Artificial Opening Endoscopic (ICD-10-PCS; CPT 45378; principal; 2023-01-16 11:30)
DX: Z12.11 Encounter for screening for malignant neoplasm of colon (principal); Z86.010 Personal history of colon polyps; K59.04 Chronic idiopathic constipation; D12.2 Benign neoplasm of ascending colon; K63.5 Polyp of colon; K64.8 Other hemorrhoids; K21.9 Gastro-esophageal reflux disease without esophagitis; G47.33 Obstructive sleep apnea (adult) (pediatric); G89.29 Other chronic pain; M47.816 Spondylosis without myelopathy or radiculopathy, lumbar region; I10 Essential (primary) hypertension; E11.9 Type 2 diabetes mellitus without complications; E78.00 Pure hypercholesterolemia, unspecified; G43.909 Migraine, unspecified, not intractable, without status migrainosus; Z79.85 Long-term (current) use of injectable non-insulin antidiabetic drugs; Z79.899 Other long term (current) drug therapy; Z88.8 Allergy status to other drugs, medicaments and biological substances; Z90.49 Acquired absence of other specified parts of digestive tract; F17.210 Nicotine dependence, cigarettes, uncomplicated
CPT/HCPCS: 45385; 82947; 88305

== ENCOUNTER → 2023-01-30 11:23 | Outpatient (BNVA) | payer OTHER, SELFPAY | PROVIDERS: PCP General Practice; Visit Provider Nurse Practitioner | DX: K59.04 Chronic idiopathic constipation (principal); D12.2 Benign neoplasm of ascending colon; D12.5 Benign neoplasm of sigmoid colon; K90.0 Celiac disease; Z98.890 Other specified postprocedural states | CPT/HCPCS: 99212 ==

== ENCOUNTER → 2023-02-11 10:50 | Outpatient (BNVA) | payer OTHER, SELFPAY | PROVIDERS: PCP General Practice; Visit Provider Nurse Practitioner Family | DX: G25.81 Restless legs syndrome (principal); G43.709 Chronic migraine without aura, not intractable, without status migrainosus; G47.33 Obstructive sleep apnea (adult) (pediatric) | CPT/HCPCS: 99212 ==

== ENCOUNTER → 2023-02-13 13:16 | Outpatient (BNVA) | payer OTHER, SELFPAY | PROVIDERS: PCP General Practice; Referring Provider Nurse Practitioner; Visit Provider Surgery | DX: K64.9 Unspecified hemorrhoids (principal) | CPT/HCPCS: 46600; 99202 ==

== ENCOUNTER 2023-02-26 06:06 | Outpatient (REF) | payer OTHER, SELFPAY | END 2023-02-26 06:07 | disposition home or self-care (01) | LOC: CF 06:06 | PROVIDERS: Visit Provider Internal Medicine | DX: Z13.89 Encounter for screening for other disorder (principal) ==

== ENCOUNTER 2023-03-24 13:41 | Outpatient (REF) | payer OTHER, SELFPAY ==
--- NOTE | ~2023-03-24 | MM_ITS ---
EXAMINATION: MM DIAGNOSTIC DIGITAL BREAST TOMOSYNTHESIS, BILATERAL US DIAGNOSTIC ULTRASOUND BREAST, LEFT CLINICAL INFORMATION: Intermittent pain and fullness upper outer left breast for 2 months. No focal palpable abnormality. No discharge. No known family history breast cancer. TC score 4%. COMPARISON: Mammography: 05/15/2022, 08/31/2020, 03/11/2019, 02/25/2018 TECHNIQUE: Digital breast tomosynthesis is performed in both the craniocaudal and mediolateral oblique views along with computer-aided detection (CAD). Synthesized 2D images are generated from the tomosynthesis. Ultrasound left breast is targeted to the areas of clinical concern. Grayscale imaging and color Doppler are performed without and with harmonics. Patient is able to point to the area of symptoms at time of imaging. FINDINGS: There are scattered areas of fibroglandular density (ACR BI-RADS breast composition Category b). Parenchymal pattern is similar to prior exams and there is no developing density or architectural abnormality or abnormal calcifications. The axilla and skin contours are unremarkable. There is no coarsening of the Anderson's ligaments. No skin thickening. No significant changes. Ultrasound left breast demonstrates no cystic or solid mass, architectural abnormality, or focal duct ectasia. No skin thickening or edema tracking in soft tissue planes. No hyperemia on color Doppler. Results are discussed with the patient at time of visit. MM/MM tomosynthesis diagnostic BI IMPRESSION: -No mammographic evidence of malignancy or inflammatory changes. -Unremarkable left breast ultrasound. ASSESSMENT: BI-RADS 1: Negative RECOMMENDATION: 1. Patient should be managed based on the clinical impression. If there remains a clinically palpable concern, evaluation may be considered with surgical consult. Decision to proceed with biopsy should be based on clinical grounds and degree of clinical concern. 2. Otherwise, routine annual screening mammography. This patient's information was entered into a reminder system with a target due date for their next mammogram.
== END 2023-03-24 13:42 | disposition home or self-care (01) ==
LOC: HO.MAMMO 13:41
PROVIDERS: PCP General Practice; Visit Provider General Practice
DX: N64.4 Mastodynia (principal)
CPT/HCPCS: 76642; 77062; 77066

== ENCOUNTER 2023-03-26 06:05 | Outpatient (REF) | payer OTHER, SELFPAY ==
--- NOTE | ~2023-03-26 | FL_ITS ---
EXAMINATION: XR FLUOROSCOPY WITH IMAGES CLINICAL INFORMATION: Impingement syndrome of right shoulder. Right shoulder injection for pain. COMPARISON: None available. TECHNIQUE: Fluoroscopy Supervised By: Dr. Maravilla. Fluoroscopy Time: 0.2 minutes. Cumulative Dose: 3.40 mGy. DAP: 0.213 Gycm2. Images: 1. FINDINGS: Single image demonstrates needle placement and contrast injection of the right shoulder joint. FL/FL guidance in treatment room IMPRESSION: Fluoroscopy guidance for right shoulder injection.
== END 2023-03-26 06:06 | disposition home or self-care (01) ==
LOC: CF 06:05
PROVIDERS: Visit Provider Internal Medicine
DX: M19.011 Primary osteoarthritis, right shoulder (principal); M75.41 Impingement syndrome of right shoulder
CPT/HCPCS: 20610; J2795; J3301; Q9965

== ENCOUNTER 2023-04-01 05:57 | Day surgery (SDC) | payer OTHER, SELFPAY ==
[2023-03-28 09:26] VITALS: BMI 27.8
--- NOTE | 2023-03-31 09:35 | HO.ANESPROP2 ---
Documented by User: Betty Parker NP 03/31/23 09:42 HPI - Anesthesia Eval Consult details Narrative: 67yo F for Exam Under Anesthesia, Hemorrhoidectomy [facility] cardiology eval 12/2022 - stable htn PMFSH Active Problems Active Problems: All Active Problems (Updated 02/13/23 @ 13:39 by Luisito Cheung MD) Celiac disease (Acute) Epigastric pain (Acute) Chronic idiopathic constipation (Acute) Impingement syndrome of right shoulder (Acute) Tubular adenoma of colon (Acute) History of fusion of cervical spine (Acute) Right arm numbness (Acute) Sacroiliac joint dysfunction (Acute) Nausea (Acute) Arthritis of right shoulder region (Acute) Cervicalgia (Acute) Chronic migraine without aura (Acute) SHUN (obstructive sleep apnea) (Acute) Sleep difficulties (Acute) Restless leg syndrome (Acute) Bleeding hemorrhoids (Acute) Diabetes (Acute) High cholesterol (Acute) HTN (hypertension) (Acute) Spondylosis of lumbar spine (Acute) Past Medical History Medical History Back pain, chronic Bleeding hemorrhoids Diabetes GERD (gastroesophageal reflux disease) High cholesterol HTN (hypertension) Migraines Spondylosis of lumbar spine Family History Family History Father History of heart attack Mother Hx of type 1 diabetes mellitus Family history of high blood pressure Family history of problems with anesthesia: No Surgical History Surgical History (Updated 03/28/23 @ 09:19 by Marisabel Casas RN) History of esophagogastroduodenoscopy (EGD) Hx of cholecystectomy Hx of colonoscopy Hx of fusion of cervical spine Hx of tubal ligation History of Problems with Anesthesia: No Social History Social History Alcohol intake: never Patient Tobacco Use Status: Current everyday Tobacco user Tobacco use type: Cigarette Cigarette Packs Per Day: 0.5 Cigarettes Per Day: 10 Years Smoked: 45 Use of substances other than those prescribed or required for medical reasons: No Are you DNR?: No Advance Directives: No Advance Directives Information Provided: Yes Advance Directives on File: No Current occupational status: employed 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 Allergies Allergy/AdvReac Type Severity Reaction Status Date / Time codeine AdvReac Intermediate vertigo, Verified 04/01/23 06:24 nausea Home Medications Medication Instructions Recorded Confirmed Last Taken Type atenolol 50 mg tablet 75 mg PO DAILY 08/08/20 04/01/23 04/01/23 History cholecalciferol (vitamin D3) 25 25 mcg PO DAILY 08/08/20 04/01/23 Unknown History mcg (1,000 unit) capsule (Vitamin D3) hydrochlorothiazide 25 mg tablet 25 mg PO DAILY 08/08/20 04/01/23 03/31/23 History lisinopril 20 mg tablet 20 mg PO DAILY 08/08/20 04/01/23 03/31/23 History acetaminophen 650 mg 650 mg PO Q8H PRN Pain 03/21/22 04/01/23 Unknown History tablet,extended release (8 Hour Pain Reliever) dapagliflozin 5 mg tablet (Farxiga) 5 mg PO DAILY 03/21/22 04/01/23 03/31/23 History alcohol swabs (BD Alcohol Swabs) 1 pad topical BID 08/21/22 04/01/23 Unknown History glipizide 10 mg tablet, extended 20 mg PO DAILY 08/21/22 04/01/23 03/31/23 History release 24 hr lancets 28 gauge (FreeStyle #100 ea 08/21/22 04/01/23 Unknown History Lancets) melatonin 5 mg tablet 5 mg PO BEDTIME insomnia 08/21/22 04/01/23 Unknown History dulaglutide 1.5 mg/0.5 mL 1.5 mg subcut QWEEK 12/13/22 04/01/23 03/31/23 History [facility] Exam Exam Date and Time: March 31, 2023 0935 Height,Weight and Vital Signs: Height 5 ft 1 in Weight 66.678 kg Pertinent Lab Results Pertinent Lab Results: Laboratory Tests 06/20/22 13:42 Sodium 143 Potassium 4.0 Chloride 105 Carbon Dioxide 27 BUN 16 Creatinine 0.86 Narrative Narrative: EKG NSR @ 71 Nonspec T wave abnormality ECHO 2020 Conclusions: - Normal left ventricular size and systolic function.? - There is mildly increased left ventricular wall thickness. ? ? - Normal left ventricular filling pressures. ? - Normal right ventricular cavity size and systolic function.? ? - The left atrium is moderately dilated. ? - There is no evidence of pericardial effusion.? Assessment and Plan Assessment Anesthesia Assessment: Chart Reviewed Final Anesthetic Review Family History of Problems with Anesthesia: No History of Problems with Anesthesia: No Documented by User: Cristal Garcia MD 04/01/23 08:22 [facility] Past Medical History Medical History Back pain, chronic Bleeding hemorrhoids Diabetes GERD (gastroesophageal reflux disease) High cholesterol HTN (hypertension) Migraines Spondylosis of lumbar spine Family History Family History Father History of heart attack Mother Hx of type 1 diabetes mellitus Family history of high blood pressure Surgical History Surgical History (Updated 03/28/23 @ 09:19 by Marisabel Casas RN) History of esophagogastroduodenoscopy (EGD) Hx of cholecystectomy Hx of colonoscopy Hx of fusion of cervical spine Hx of tubal ligation Social History Social History Alcohol intake: never Patient Tobacco Use Status: Current everyday Tobacco user Tobacco use type: Cigarette Cigarette Packs Per Day: 0.5 Cigarettes Per Day: 10 Years Smoked: 45 Use of substances other than those prescribed or required for medical reasons: No Are you DNR?: No Advance Directives: No Advance Directives Information Provided: Yes Advance Directives on File: No Current occupational status: employed 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 Allergies Allergy/AdvReac Type Severity Reaction Status Date / Time codeine AdvReac Intermediate vertigo, Verified 04/01/23 06:24 nausea Home Medications Medication Instructions Recorded Confirmed Last Taken Type atenolol 50 mg tablet 75 mg PO DAILY 08/08/20 04/01/23 04/01/23 History cholecalciferol (vitamin D3) 25 25 mcg PO DAILY 08/08/20 04/01/23 Unknown History mcg (1,000 unit) capsule (Vitamin D3) hydrochlorothiazide 25 mg tablet 25 mg PO DAILY 08/08/20 04/01/23 03/31/23 History lisinopril 20 mg tablet 20 mg PO DAILY 08/08/20 04/01/23 03/31/23 History acetaminophen 650 mg 650 mg PO Q8H PRN Pain 03/21/22 04/01/23 Unknown History tablet,extended release (8 Hour Pain Reliever) dapagliflozin 5 mg tablet (Farxiga) 5 mg PO DAILY 03/21/22 04/01/23 03/31/23 History alcohol swabs (BD Alcohol Swabs) 1 pad topical BID 08/21/22 04/01/23 Unknown History glipizide 10 mg tablet, extended 20 mg PO DAILY 08/21/22 04/01/23 03/31/23 History release 24 hr lancets 28 gauge (FreeStyle #100 ea 08/21/22 04/01/23 Unknown History Lancets) melatonin 5 mg tablet 5 mg PO BEDTIME insomnia 08/21/22 04/01/23 Unknown History dulaglutide 1.5 mg/0.5 mL 1.5 mg subcut QWEEK 12/13/22 04/01/23 03/31/23 History subcutaneous [facility] inject[facility] Exam Airway Mallampati Class: I TM Dist: >3cm Neck ROM: Full Loose/Missing/Broken Teeth: No Heart: rr Lungs: cta Assessment and Plan Final Anesthetic Review ASA Class: II Final Preanesthetic Review: No Changes in Pt Med Stat Patient Risk: Low Anesthetic Plan Anesthetic Plan: MAC: Disposition: Standard PACU
[2023-04-01] VITALS (10 sets, daily range): BP systolic 117–159; BP diastolic 50–79; PULSE 65–78; RESP 12–20; TEMP 36.1–36.6; O2SAT 98–99
[2023-04-01 06:25] LABS: Glucose, Whole Blood 169 mg/dL (60-115)
[2023-04-01] MEDS: Lactated Ringers 1,000 ML 100 ML IVCONT (06:34)
--- NOTE | 2023-04-01 07:19 | MHC.SHP ---
Pre-Procedural Eval Section A Date of Service: 04/01/23 Section B Chief Complaint: Unspecified hemorrhoids Details of Present Illness: has had a long history of bleeding hemorrhoids, wants to proceed with hemorrhoidectomy Relevant Family History (Specify if Yes): No Relevant Social History: None Present Medications: see Short Stay Collaborative assessment Medical History: Significant History ( sleep apnea, migraine, hypertension, hyperlipidemia, diabetes) Allergies: Allergies Allergy/AdvReac Type Severity Reaction Status Date / Time codeine AdvReac Intermediate vertigo, Verified 04/01/23 06:24 nausea Review of Systems Sugical H&P ROS: Negative: Constitution, Cardiovascular, Respiratory, Neurological, Psychiatric, Hem-Onc, Allergic/Immunologic, Genitourinary, Musculoskeletal, Integumentary, Endocrine and Eyes/Ears/Nose/Throat and Yes, Specify: Gastrointestinal ( bleeding per rectum) Exam Surgical H&P Exam: Normal: HEENT, Normal: Heart, Normal: Lungs, Normal: Extremities, Normal: Abdomen, Normal: Skin and Normal: Neurological Exam Comment: hemorrhoids Plan Diagnosis/Plan: Unchanged I have reviewed the history and physical and performed a pertinent physical examination on my patient. No changes have occurred unless specified. Time Spent With Patient Time: Total time managing care of this patient today ____ minutes.
--- NOTE | 2023-04-01 08:24 | W.PM.OPN ---
Operative Note Operative Note Date of Service: 04/01/23 Narrative: Preop diagnosis: Hemorrhoids internal and external with bleeding Postop diagnosis: The same Procedure: Exam under anesthesia, hemorrhoidectomy x3 columns Surgeon: Luisito Cheung MD The patient is a 67-year-old female with a long history of periodic bleeding with her hemorrhoids. She therefore wanted to proceed with hemorrhoidectomy she she understood the technique of the planned procedure and was aware of the risks, benefits, and alternatives. She was brought to the operating room. She was placed in prone pierre-knife position under general anesthesia via endotracheal tube. The buttocks were retracted with wide tape laterally. The perianal area was prepped and draped in the usual sterile fashion. A surgical time-out was done. The patient received Cefotan 2 g IV preoperatively Examination of the anal orifice revealed external hemorrhoidal columns, the left and right side. There were noted to have three hemorrhoidal columns that were prominent. Inserted the Karolina Leyva retractor and examined the anal canal circumferentially. Examination of the anal circumference was done. Note of internal component of these hemorrhoidal columns that were seen earlier. There was large hemorrhoidal column on the left and 1 on the right side and another smaller hemorrhoidal column on the right side posteriorly. No other lesions seen. There was no fissure or induration I applied a Cui grasper on the hemorrhoidal column on the left to retract this. I made a figure of 8 stitch with a chromic 3-0 at its pedicle past the dentate line. I made an incision around this hemorrhoidal column to the perianal skin with a blade 15 and excise this hemorrhoidal column above the plane of the sphincters along this incision. I closed this incision with a running chromic 3-0 stitch with additional hemostatic figure-eight sutures being placed for oozing areas The same procedure was duplicated on the other hemorrhoidal columns on the right side. The hemorrhoidal column which was a mix of internal external on the right lateral was retracted with Cui graspers. I made A figure-eight stitch chromic 3-0 at the pedicle and made an incision around this with a blade 15. I excised this hemorrhoidal column above the plane of sphincters along this incision using Metzenbaum scissors and closed this with a running chromic 3-0 stitch. Additional hemostatic sutures were placed for oozing areas. The external hemorrhoidal column on the right anterior was excised in the same manner. We observed for hemostasis. Once hemostasis was confirmed, I infiltrated the perianal area with Marcaine 0.5% for postop analgesia. The procedure was then completed The patient tolerated procedure well. There were no immediate complications. Initial and final counts of sponges and instruments were correct. Estimated blood loss was about 20 cc. The patient was extubated without difficulty and transferred to the recovery room with stable vital signs.
[2023-04-01] MEDS: Acetaminophen 325 MG TABLET 650 MG PO (09:40)
[2023-04-01] MEDS: oxyCODONE HCl Immed Release 5 MG TABLET PO (09:40)
== END 2023-04-01 11:00 | disposition home or self-care (01) ==
PROVIDERS: PCP General Practice; Visit Provider Surgery
PROC: (CPT 46260; principal; 2023-04-01 07:30)
PROC: (CPT 46260; 2023-04-01 07:30)
DX: K64.8 Other hemorrhoids (principal); K64.4 Residual hemorrhoidal skin tags; K58.9 Irritable bowel syndrome, unspecified; K59.09 Other constipation; I10 Essential (primary) hypertension; G47.33 Obstructive sleep apnea (adult) (pediatric); G43.909 Migraine, unspecified, not intractable, without status migrainosus; M47.816 Spondylosis without myelopathy or radiculopathy, lumbar region; G89.29 Other chronic pain; E11.9 Type 2 diabetes mellitus without complications; Z79.84 Long term (current) use of oral hypoglycemic drugs; Z79.85 Long-term (current) use of injectable non-insulin antidiabetic drugs; Z79.899 Other long term (current) drug therapy; Z88.8 Allergy status to other drugs, medicaments and biological substances; Z90.49 Acquired absence of other specified parts of digestive tract; F17.210 Nicotine dependence, cigarettes, uncomplicated
CPT/HCPCS: 46260; 82947; 88304; J0330; J2250; J3010

== ENCOUNTER → 2023-04-21 12:58 | Outpatient (BNVA) | payer OTHER, SELFPAY | PROVIDERS: Visit Provider Surgery ==

== ENCOUNTER 2023-04-25 08:27 | Outpatient (AMB) | payer OTHER, SELFPAY ==
[2023-04-25 08:32] VITALS: BP 130/72; PULSE 73; RESP 14; O2SAT 95
--- NOTE | 2023-04-25 08:32 | A.OFFVIS_ITS ---
Intake Vital Signs 04/25/23 08:32 Weight 143 lb 2 oz BP 130/72 Blood Pressure Location Lt brachial Position Sitting Respiration 14 Pulse 73 Pulse Source Pulse Oximeter Pulse Oximetry (%) 95 Oxygen Delivery Method Room Air Intake Visit Reasons: s/p right glenohumeral inj Allergies codeine Adverse Reaction (Intermediate, Verified 04/25/23 08:33) vertigo, nausea HPI s/p right glenohumeral inj HPI Details 67-year-old female presenting today for a status post right glenohumeral injection. The patient reports 80% relief following the procedure for two weeks. She states that her pain is back to baseline. She has difficulty lifting her arm. She reports paresthesia and pain in her right hand, which is worse at night after laying down on the bed. She states that her wrist is bothersome. She has no concerns about her neck. She has had cervical fusion surgery in the past. Past procedures: 03/26/23: right glenohumeral injection under fluoroscopy: 80% relief for two weeks. 10/07/22: Right subacromial bursa injection under ultrasound guidance - 75% relief for 2 months. 08/12/22: Right subacromial bursa injection under ultrasound guidance - 70% relief for 8 weeks. [facility] Medical History Back pain, chronic Bleeding hemorrhoids Diabetes GERD (gastroesophageal reflux disease) High cholesterol HTN (hypertension) Migraines Spondylosis of lumbar spine Surgical History History of esophagogastroduodenoscopy (EGD) History of hemorrhoidectomy (~04/01/23) Hx of cholecystectomy Hx of colonoscopy Hx of fusion of cervical spine Hx of tubal ligation Family History Father History of heart attack Mother Hx of type 1 diabetes mellitus Family history of high blood pressure Social History Alcohol intake: never Patient Tobacco Use Status: Current everyday Tobacco user Tobacco use type: Cigarette Cigarette Packs Per Day: 0.5 Cigarettes Per Day: 10 Years Smoked: 45 Current occupational status: employed 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 Alert and oriented. Mood and affect appropriate. Follows and participates in conversation appropriately. Respiratory effort is unlabored. Able to transition from sit to stand unassisted. Ambulates with bilaterally normal heel strike and toe off. Shoulder: ROM on right shoulder abduction is 70 degrees. Forward flexion is 90 degrees. She is unable to raise it above the level of the shoulder. Results Reviewed Results Reviewed: 07/17/22: MR SHOULDER WITHOUT CONTRAST, RIGHT FINDINGS: ROTATOR CUFF: Supraspinatus: There is mild heterogeneous increased T2 signal along the intrasubstance and articular surface of the distal anterior portion of the tendon extending to the insertion without clearly defined margins. This is compatible with prominent tendinosis or small areas of partial tearing without a measurable defect. This extends approximately 1 cm transverse and 1 cm AP. The muscle is normal. The remaining rotator cuff muscles and tendons are normal. BICEPS: Normal. CORACOACROMIAL ARCH: There is [id number] hypertrophic osteoarthritis of the acromioclavicular joint. The undersurface of the acromion is flat without subacromial spur. BURSA: Normal. LABRUM/CAPSULE: There is subtle heterogeneous increased signal in the superior aspect of the posterior labrum compatible with degenerative change or nondisplaced degenerative tearing. GLENOHUMERAL JOINT/MARROW: There are marginal osteophytes along the inferior aspect of the glenohumeral joint most evident on the humeral side. There is nonuniform up to high-grade cartilage loss throughout the inferomedial aspect of the humeral head. Cartilage heterogeneity along the apex of the humeral head. Minimal heterogeneity of the glenoid cartilage. Findings indicative of m [id number] glenohumeral arthrosis. There is a mild joint effusion and synovitis. IMPRESSION: [id number] osteoarthritis of the glenohumeral joint with a mild joint effusion and synovitis. Mild abnormality of the supraspinatus tendon compatible with prominent tendinosis or minimal partial tearing without a clearly measurable tendon defect [id number] hypertrophic osteoarthritis of the acromioclavicular joint. Assessment & Plan Assessment & Plan (1) Hand pain, right: Code(s): M79.641 - Pain in right hand Plan 1. Discussed temporary nerve stimulator vs RFA vs permanent nerve stimulator as possible treatment options at this time for her shoulder pain. The patient is amenable to proceeding with the trial of temporary nerve stimulation. At this point, we will submit a PA for approval of right suprascapular nerve stimulator. Discussed the risks and benefits of the procedure with the patient in detail. All questions were answered. The patient is on board with the plan. 2. Ordered nerve conduction study to rule out carpal tunnel syndrome. If the finding is positive for carpal tunnel syndrome, we will refer to hand surgeon. Justification for interventional therapy: ? Patient with average pain > 6/10. ? 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 ? Patient continuing home exercise program ? Previous injection provided >50% relief x > [address] Maravilla by Mendoza Contreras, medical technologist clinical, on 04/25/2023. I, Dr. Maravilla, have personally reviewed and agree with the information entered by the scribe. Orders: Orders NE nerve conduction velocity 04/25/23 M79.641 - Pain in right hand Coding Level of Care Code Est Pt Level 4 (79227) Diagnoses Hand pain, right M79.641
== END 2023-04-25 08:46 | disposition home or self-care (01) ==
PROVIDERS: PCP General Practice; Visit Provider Internal Medicine
DX: M79.641 Pain in right hand (principal)
CPT/HCPCS: 99214

== ENCOUNTER → 2023-04-25 08:27 | Outpatient (BNVA) | payer OTHER, SELFPAY | PROVIDERS: Visit Provider Internal Medicine | DX: M79.641 Pain in right hand (principal) | CPT/HCPCS: 99212 ==

== ENCOUNTER 2023-05-09 09:58 | Outpatient (REF) | payer OTHER, SELFPAY ==
[2023-05-09 14:31] LABS: Alanine Aminotransferase 15 U/L (0-31); Albumin Level 4.3 g/dL (3.5-5.0); Alkaline Phosphatase 100 U/L (39-117); Aspartate Amino Transferase 16 U/L (5-31); Bilirubin Direct 0.3 mg/dL (0.0-0.5); Bilirubin Total 0.9 mg/dL (0.0-1.0); Total Protein 7.2 g/dL (6.5-8.0)
[2023-05-09 14:39] LABS: HIV AB/AG Nonreactive (Nonreactive); HIV Num 1 0.05 S/CO (0.00-0.99)
[2023-05-09 14:40] LABS: Syphilis Screen Nonreactive (Nonreactive)
[2023-05-12 16:28] LABS: TS Negative Control Passed; TS Panel A 0; TS Panel B 0; TS Positive Control Passed; TSpotTB Negative (Negative)
[2023-05-13 07:08] LABS: Rubella IgG Antibody 7.34 Index
[2023-05-13 18:08] LABS: Mumps Virus IgG Antibody >300.00 AU/mL; Rubeola IgG (Measles) >300.00 AU/mL
== END 2023-05-09 09:59 | disposition home or self-care (01) ==
LOC: HO.HHCL 09:58
PROVIDERS: Visit Provider Internal Medicine
DX: Z00.00 Encounter for general adult medical examination without abnormal findings (principal); I10 Essential (primary) hypertension; E11.21 Type 2 diabetes mellitus with diabetic nephropathy
CPT/HCPCS: 36415; 80076; 86481; 86735; 86762; 86765; 86780; 87389

== ENCOUNTER 2023-05-15 10:20 | Outpatient (AMB) | payer OTHER, SELFPAY ==
--- NOTE | 2023-05-15 10:27 | A.OFFVIS_ITS ---
Intake Vital Signs 05/15/23 10:28 Height 5 ft 1 in Weight 143 lb BMI 27.0 BP 116/68 Blood Pressure Location Rt brachial Position Sitting Pulse 80 Pulse Source Pulse Oximeter Pulse Oximetry (%) 97 Oxygen Delivery Method Room Air Intake Visit Reasons: 3m follow up Migraine Intake Note: Pt presents with a friend as a f/u for Migraine. they were good and then April 25 I started having excrutiating headaches. 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 Accompanied by: Friend Allergies codeine Adverse Reaction (Intermediate, Verified 05/15/23 10:33) vertigo, nausea Medication List - Last Reconciled 05/15/23 by MAURO Larios acetaminophen ER (8 Hour Pain Reliever) 650 mg PO Q8H PRN alcohol swabs (BD Alcohol Swabs) 1 pad topical BID atenolol 75 mg PO DAILY atogepant (Qulipta) 60 mg PO DAILY 30 days atorvastatin 40 mg PO BEDTIME bisacodyl (Dulcolax (bisacodyl)) 10 mg (2 x 5 mg) PO BEDTIME 30 days cholecalciferol (vitamin D3) (Vitamin D3) 25 mcg PO DAILY clonazepam 0.5 mg PO BEDTIME 30 days dapagliflozin propanediol (Farxiga) 5 mg PO DAILY docusate sodium 100 mg PO BID PRN dulaglutide (Trulicity) 1.5 mg subcut QWEEK galcanezumab-gnlm (Emgality Pen) 120 mg subcut ONCE 30 days glipizide ER 20 mg PO DAILY hydrochlorothiazide 25 mg PO DAILY hydrocortisone 2.5% (Proctosol HC) 1 appl MD BID PRN lancets (FreeStyle Lancets) As directed lisinopril 20 mg PO DAILY melatonin 5 mg PO BEDTIME menthol-zinc oxide 0.44-20.6 % (Calmoseptine) 1 appl topical QID PRN menthol-zinc oxide 0.44-20.6 % (Calmoseptine) 1 appl topical TID PRN sumatriptan succinate 50 - 100 mg orally at onset of headache, may repeat in 2 hrs PRN; max 2 tabs per day or 4 tabs/week (may take with Ibuprofen) 30 days HPI HPI Comments History of Present Illness Details 67-yr-old female presents for f/u visit. Pt denies any significant interval medical changes. Pt reports that her migraines were significantly reduced since starting Qulipta 60mg qd. However after 04/25, she has had a daily typical migraine, which is especially bothersome at night. She deneis any recent fevers, infections, injuries. States her blood sugars are controlled. She is compliant w/ her gluten free diet. She is not using any acute meds- tries rest and migraine cap. She never tried Sumatriptan- she lost the prescription. She states she is sleeping ok- notes she tends to drink a Pepsi in the evening. [facility] Medical History Back pain, chronic Bleeding hemorrhoids Diabetes GERD (gastroesophageal reflux disease) High cholesterol HTN (hypertension) Migraines Spondylosis of lumbar spine Surgical History History of esophagogastroduodenoscopy (EGD) History of hemorrhoidectomy (~04/01/23) Hx of cholecystectomy Hx of colonoscopy Hx of fusion of cervical spine Hx of tubal ligation Family History Father History of heart attack Mother Hx of type 1 diabetes mellitus Family history of high blood pressure Social History (Updated 05/15/23 @ 10:38 by Ember Shankar CMA) Alcohol intake: never Patient Tobacco Use Status: Current everyday Tobacco user Tobacco use type: Cigarette Cigarette Packs Per Day: 0.5 Cigarettes Per Day: 10 Years Smoked: 45 Current occupational status: employed 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 Review of Systems Const All systems reviewed & are unremarkable except as noted in HPI and below Physical Exam Vital Signs: Last Vital Signs Pulse 80 05/15/23 10:28 BP 116/68 05/15/23 10:28 Pulse Ox 97 05/15/23 10:28 Oxygen Delivery Method Room Air 05/15/23 10:28 BMI result Body Mass Index 27.0 Const General: cooperative and no acute distress Orientation/consciousness: patient oriented x3 HEENT Head: Yes normocephalic Resp Effort & Inspection: normal respiratory effort and able to speak in complete sentences Neuro Other: Photophobic General: patient oriented x3, gait normal and CN's II-XI intact bilaterally Cognition (Neuro): normal cognition Motor exam (neuro): 5/5 motor strength present throughout Psych Appearance: grossly normal Mental Status: mental status grossly normal Speech and movement: Normal speech and movement present Affect: normal affect Attitude: cooperative Thought process: Normal thought process present Thought content: Normal thought content present Insight: Good insight present (Psych) Judgement: Good judgement present (Psych) Assessment & Plan Assessment & Plan (1) Chronic migraine without aura: Comment: ? hypnic headache component Code(s): G43.709 - Chronic migraine without aura, not intractable, without status migrainosus (2) Sleep difficulties: Code(s): G47.9 - Sleep disorder, unspecified Plan For overall headache management: Continue optimizing good self-care, including but not limited to maintaining a healthy diet,? adequate fluid intake, adequate sleep, and engaging in regular physical activity. For status migrainous: Trial caffeine tabs (sent script but can bought OTC) 200mg qhs- if this does not break current status migrainous, start Prednisone 60mg qd x's 5 days- monitor BG Will order omeprazole 20mg qd for GI prophylaxis. For acute headache treatment: Pt has a h/o HTN- however BP is very well-controlled- today low-norm BP at 112/72- we can reasonably try a triptan. Again trial Sumatriptan 100mg tab, 1/2 - 1 tab (50-100mg) at onset of headache, may repeat in 2 hours. Max of 2 tabs (200mg) per 24 hours. May adjunct with OTC Tylenol 650mg q 4 hours, Ibuprofen 600mg q 6 hours, or Naproxen 440mg q 12 hrs prn. Previous acute migraine medication trials: Nurtec- ineffective, Ubrelvy- ineffective. Fioricet- ineffective. Acute migraine medication contraindications: none at this time. For headache prevention medication: Discussed that preventative medications should be taken routinely as prescribed for best effect, it may take several weeks for full effect to take effect. Continue Qulipta (atogepant) 60 mg po qhs- monitor for s/e of constipation. May continue Emgality 120mg sc monthly for now Pt is currently in Atenolol for HTN. Previous migraine prevention medication trials: Gabapentin- ineffective, Amitriptyline- ineffective, Topiramate- ineffective, Botox x's 2 tx sessions- ineffective, bi-temporal trigger point injections- ineffective. Magnesium 400mg qhs- not tolerated. Riboflavin- ineffective. Baclofen 10-20mg qhs- not tolerated. Riboflavin 400mg- inefefctive Migraine prevention medication contraindications: Aimovig d/t h/o RLS and constipation. Future considerations- Caffeine qhs, Ferdinand. For sleep and restless leg syndrome: Clonazepam 0.5mg po qhs. Previous trials- Amitriptyline 10-20mg qhs- did not help sleep or headaches. Pt would not be a candidate for Inspire, as her last sleep study showed mild SHUN. Future considerations- mandibular device. f/u in 3 months or sooner any new or worsening s/s. Medications: New prednisone in am 60 mg (3 x 20 mg) PO DAILY 5 days 15 tabs 0RF omeprazole 20 mg PO DAILY 30 days 30 caps 0RF caffeine 200 mg PO DAILY 30 days 30 tabs 1RF Refilled sumatriptan succinate (0.5 - 1 x 100 mg) 50 - 100 mg orally at onset of headache, may repeat in 2 hrs PRN; max 2 tabs per day or 4 tabs/week (may take with Ibuprofen) 30 days 12 tabs 6RF migraine headache Coding Level of Care Code Est Pt Level 4 (13711) Diagnoses Chronic migraine without aura G43.709 Sleep difficulties G47.9
[2023-05-15 10:28] VITALS: BP 116/68; PULSE 80; O2SAT 97; BMI 27.0
== END 2023-05-15 11:15 | disposition home or self-care (01) ==
PROVIDERS: Visit Provider Nurse Practitioner Family
DX: G43.709 Chronic migraine without aura, not intractable, without status migrainosus (principal); G47.9 Sleep disorder, unspecified
CPT/HCPCS: 99214

== ENCOUNTER → 2023-05-15 10:20 | Outpatient (BNVA) | payer OTHER, SELFPAY | PROVIDERS: Visit Provider Nurse Practitioner Family | DX: G43.709 Chronic migraine without aura, not intractable, without status migrainosus (principal); G47.9 Sleep disorder, unspecified | CPT/HCPCS: 99212 ==

== ENCOUNTER 2023-05-28 14:51 | Outpatient (REF) | payer OTHER, SELFPAY ==
--- NOTE | 2023-05-28 | EMG_ITS ---
Please see EMG / Nerve Conduction Report. MTDD
--- NOTE | 2023-05-28 15:22 | P.EMGPH_ITS ---
Physiatry - EMG/NCS EMG/NCS Chief complaint: Chronic right shoulder pain with right hand numbness Reason for referral: Evaluate for Carpal Tunnel Syndrome versus radiculopathy Referred by: Dr. Maravilla Procedure done: Right upper extremity nerve conduction and EMG Precautions and/or limitations: Previous cervical fusion The limb temperature was monitored continuously and remained between 32-36 degrees C during the performance of the NCS. FINDINGS: Right median motor nerve showed prolonged distal latency, normal amplitude and normal conduction velocity. Right median sensory nerve showed prolonged peak latency. All other nerves tested were within normal. Concentric needle EMG was performed in selected muscles of the right upper upper extremity. Study did not reveal signs of electric abnormalities as shown in the table below. Nerve Conduction Studies Anti Sensory Summary Table ?Stim Site NR Onset (ms) Norm Onset (ms) Peak (ms) Norm Peak (ms) O-P Amp (?V) Norm O-P Amp Site1 Site2 Delta-0 (ms) Dist (cm) l Bishop (m/s) Norm Bishop (m/s) Right Median Anti Sensory (2nd Digit) 0 Wrist ? 3.3 4.2 <3.6 15.9 >10 Wrist 2nd Digit 3.3 14.0 42 Right Radial Anti Sensory (Thumb) Forearm ? 1.8 2.1 <3.1 22.3 Forearm Thumb 1.8 0.0 Right Ulnar Anti Sensory (5th Digit) Wrist ? 2.7 3.3 <3.7 22.8 >15.0 Wrist 5th Digit 2.7 14.0 52 Motor Summary Table ?Stim Site NR Onset (ms) Norm Onset (ms) O-P Amp (mV) Norm O-P Amp iAmp (mV) Amp (1st) (%) Site1 Site2 Delta-0 (ms) Dist (cm) Bishop (m/s) Norm Bishop (m/s) Right Median Motor (Abd Poll Brev) Wrist ? 4.2 <3.9 9.0 >4.5 11.2 100.0 Wrist Abd Poll Brev 4.2 0.0 Elbow ? 7.5 8.4 10.3 93.3 Elbow Wrist 3.3 16.0 48 >45 Right Ulnar Motor (Abd Dig Minimi) Wrist ? 2.6 <3.0 7.7 >5 10.1 100.0 Wrist Abd Dig Minimi 2.6 0.0 B Elbow ? 5.8 7.3 9.7 94.8 B Elbow Wrist 3.2 15.0 47 >45 A Elbow ? 6.8 7.0 9.2 90.9 A Elbow B Elbow 1.0 10.0 100 >45 EMG ?Side Muscle Nerve Root Ins Act Fibs Psw Amp Dur Poly Recrt Int Pat Comment Right 1stDorInt Ulnar C8-T1 Nml Nml Nml Nml Nml 0 Nml Nml Right Biceps Musculocut C5-6 Nml Nml Nml Nml Nml 0 Nml Nml Right Triceps Radial C6-7-8 Nml Nml Nml Nml Nml 0 Nml Nml Right Deltoid Axillary C5-6 Nml Nml Nml Nml Nml 0 Nml Nml Right FlexCarRad Median C6-7 Nml Nml Nml Nml Nml 0 Nml Nml IMPRESSION: 1. This is an abnormal study. 2. 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 3. There is no electrodiagnostic evidence for ulnar neuropathy, brachial plexopathy, or cervical radiculopathy. Thank you for your kind referral. Zoey Jacob MD, TIERNEY Board Certified, [place] Board [employer] and Rehabilitation (ABPMR) Board Certified, [place] Board of Electrodiagnostic Medicine (ABEM)
== END 2023-05-28 14:52 | disposition home or self-care (01) ==
LOC: HO.NEURO 14:51
PROVIDERS: PCP General Practice; Visit Provider Internal Medicine
DX: M79.641 Pain in right hand (principal)
CPT/HCPCS: 95860; 95886; 95907; 95909

== ENCOUNTER → 2023-05-28 14:51 | Outpatient (BNV) | payer OTHER, SELFPAY | PROVIDERS: PCP General Practice; Visit Provider Physical Medicine & Rehabilitation | DX: G56.11 Other lesions of median nerve, right upper limb (principal) | CPT/HCPCS: 95886; 95909 ==

== ENCOUNTER 2023-06-13 19:18 | Outpatient (REF) | payer OTHER, SELFPAY ==
[2023-06-14 04:51] LABS: CT PCR NOT DETECTED (Not Detect.); NG PCR NOT DETECTED (Not Detect.)
[2023-06-15 13:32] LABS: BV Int Neg Control Negative (Negative); BV Int Pos Control Positive (Positive)
[2023-06-18 21:28] LABS: HPV mRNA E6/E7 rflx Not Detected (Not Detected)
== END 2023-06-13 19:19 | disposition home or self-care (01) ==
LOC: HO.LNP 19:18
PROVIDERS: Visit Provider General Practice
DX: Z12.4 Encounter for screening for malignant neoplasm of cervix (principal); Z11.51 Encounter for screening for human papillomavirus (HPV); Z20.2 Contact with and (suspected) exposure to infections with a predominantly sexual mode of transmission
CPT/HCPCS: 0353U; 87480; 87510; 87624; 87660; 88142

== ENCOUNTER 2023-06-26 09:50 | Outpatient (REF) | payer OTHER, SELFPAY ==
[2023-06-26 11:19] LABS: Appearance Urine Clear; Color Urine Yellow; Glucose Urine UA >=1000 mg/dL (Negative); Leukocyte Esterase Urine Negative (Negative); Nitrite Urine Negative (Negative); PH 5.5 (5.0-9.0); Specific Gravity - Urine >= 1.030 (1.005-1.025); UMIC TRIGGER UA YES; Urine Blood Negative (Negative); Urine Ketones Negative (Negative); Urine Protein Negative (Neg-Trace)
[2023-06-26 11:22] LABS: Anion Gap 13 (12-20); Blood Urea Nitrogen 18 mg/dL (9-16); Calcium 9.7 mg/dL (8.4-10.2); Carbon Dioxide 25 mmol/L (22-29); Chloride 106 mmol/L (96-108); Estimated Glomerular Filt Rate > 60; Potassium 3.1 mmol/L (3.3-5.1); Sodium 141 mmol/L (135-145)
[2023-06-26 12:13] LABS: Creatinine Urine 112.88 mg/dL; Microalbum/Creatinine Ratio Ur 9.7 ug/mg cr (<30); Protein/Creatinine Ratio, Ur 0.07 (<0.2); Total Protein Urine Random 8 mg/dL (<12)
[2023-06-26 13:43] LABS: Bacteria Urine Trace (None Seen); Hyaline Casts Urine 0-2 /LPF (0-2); RBC Urine 0-2 /HPF (0-2)
== END 2023-06-26 09:51 | disposition home or self-care (01) ==
LOC: HO.LAB 09:50
PROVIDERS: PCP General Practice; Visit Provider Internal Medicine Nephrology
DX: N18.2 Chronic kidney disease, stage 2 (mild) (principal); E11.21 Type 2 diabetes mellitus with diabetic nephropathy
CPT/HCPCS: 36415; 80051; 81001; 81003; 82043; 82310; 82565; 82570; 84156; 84520

== ENCOUNTER 2023-06-30 10:43 | Outpatient (AMB) | payer OTHER, SELFPAY ==
--- NOTE | 2023-06-30 10:54 | MHC.OFFVIS ---
Intake Vital Signs 06/30/23 10:55 Height 5 ft 1 in Weight 141 lb 8.588 oz BMI 26.7 BP 110/78 Blood Pressure Location Lt brachial Position Sitting Pulse 69 Pulse Source Monitor Intake Visit Reasons: 6 mth f/u[ Intake Note: 6 month follow up with EKG. 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 by: Self / Same As Patient Allergies codeine Adverse Reaction (Intermediate, Verified 06/30/23 10:56) vertigo, nausea Medication List - Last Reconciled 06/30/23 by Kaushik Horn MD acetaminophen ER (8 Hour Pain Reliever) 650 mg PO Q8H PRN alcohol swabs (BD Alcohol Swabs) 1 pad topical BID atenolol 75 mg PO DAILY atogepant (Qulipta) 60 mg PO DAILY 30 days atorvastatin 40 mg PO BEDTIME [BISACODYL EC 5MG TAB TAKE 2 TABLETS BY MOUTH AT BEDTIME] caffeine 200 mg PO DAILY 30 days cholecalciferol (vitamin D3) (Vitamin D3) 25 mcg PO DAILY clonazepam 0.5 mg PO BEDTIME 30 days dapagliflozin propanediol (Farxiga) 5 mg PO DAILY docusate sodium 100 mg PO BID PRN dulaglutide (Trulicity) 1.5 mg subcut QWEEK galcanezumab-gnlm (Emgality Pen) 120 mg subcut ONCE 30 days glipizide ER 20 mg PO DAILY hydrochlorothiazide 25 mg PO DAILY hydrocortisone 2.5% (Proctosol HC) 1 appl NE BID PRN lancets (FreeStyle Lancets) As directed lisinopril 20 mg PO DAILY melatonin 5 mg PO BEDTIME menthol-zinc oxide 0.44-20.6 % (Calmoseptine) 1 appl topical QID PRN menthol-zinc oxide 0.44-20.6 % (Calmoseptine) 1 appl topical TID PRN omeprazole 20 mg PO DAILY 30 days prednisone 60 mg (3 x 20 mg) PO DAILY 5 days sumatriptan succinate 50 - 100 mg orally at onset of headache, may repeat in 2 hrs PRN; max 2 tabs per day or 4 tabs/week (may take with Ibuprofen) 30 days HPI HPI Comments History of Present Illness Details Pleasant 68-year-old female here for follow-up. Previous echocardiography has shown normal biventricular systolic function. There was mildly increased left ventricular wall thickness and diastolic function was indeterminate. Left atrium was moderately dilated. She continues to be asymptomatic. No exertional chest pain or shortness of breath. No symptoms or signs of heart failure. Taking medications regularly and blood pressure control is good. Her sugar control is also excellent her last A1c was 6. She returns for follow-up today. She has been diagnosed with sleep apnea and will be starting the CPAP mask. Blood pressure control is good. Denying any new symptoms. 06/30/2023: She returns for follow-up. She is denying any symptoms. [facility] Medical History Back pain, chronic Bleeding hemorrhoids Diabetes GERD (gastroesophageal reflux disease) High cholesterol HTN (hypertension) Migraines Spondylosis of lumbar spine Surgical History History of hemorrhoidectomy (~04/01/23) History of esophagogastroduodenoscopy (EGD) Hx of fusion of cervical spine Hx of colonoscopy Hx of cholecystectomy Hx of tubal ligation Family History Father History of heart attack Mother Hx of type 1 diabetes mellitus Family history of high blood pressure Social History Alcohol intake: never Patient Tobacco Use Status: Current everyday Tobacco user Tobacco use type: Cigarette Cigarette Packs Per Day: 0.5 Cigarettes Per Day: 10 Years Smoked: 45 Current occupational status: employed 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 [employer] Review of Systems Const Denies weakness ENT Denies dizziness Card Denies chest pain, Denies chest pain with activity, Denies syncope, Denies rapid heart rate, Denies pedal edema, Denies edema, Denies leg edema, Denies lightheadedness, Denies palpitations, Denies dyspnea, Denies dyspnea on exertion and Denies orthopnea Resp Denies cough, Denies dyspnea and Denies dyspnea on exertion GI Denies hematochezia and Denies change in stool character Musc Denies abnormal gait, Denies muscle cramps, Denies muscle weakness, Denies numbness, Denies radiating pain into limb and Denies tingling Neuro Denies abnormal gait, Denies dizziness, Denies syncope, Denies numbness, Denies tingling and Denies weakness Endo Denies palpitations Physical Exam Vital Signs: Last Vital Signs Pulse 69 06/30/23 10:55 BP 110/78 06/30/23 10:55 BMI result Body Mass Index 26.7 GENERAL APPEARANCE: in no acute distress, pleasant. NECK: no carotid bruit, no jugular venous distention. SKIN: no suspicious lesions, warm and dry. HEART: no murmurs, regular rate and rhythm. LUNGS: clear to auscultation bilaterally. ABDOMEN: soft, nontender. EXTREMITIES: no edema. PERIPHERAL PULSES: equal. NEUROLOGIC: No gross deficits, AAO X 3 Office Procedures EKG Details: Normal sinus rhythm 69 beats per minute, normal axis, nonspecific T-wave changes, QTC 411 milliseconds. [id number], Complete Assessment & Plan Assessment & Plan (1) HTN (hypertension): Code(s): I10 - Essential (primary) hypertension (2) High cholesterol: Code(s): E78.00 - Pure hypercholesterolemia, unspecified Plan Pleasant 68 year female here for follow-up. Blood pressure control is good. She has hyperlipidemia and is a diabetic. Her LDL cholesterol target is less than 70. She should have once a year fasting lipid panel. Thank you for allowing me to participate in the care of your patient. Please feel free to contact me if you have any questions. Coding Level of Care Code Est Pt Level 4 (54898) Diagnoses HTN (hypertension) I10 High cholesterol E78.00 CPT Codes EKG - CPT: 75363-[id number], Complete ([id number])
[2023-06-30 10:55] VITALS: BP 110/78; PULSE 69; BMI 26.7
== END 2023-06-30 11:15 | disposition home or self-care (01) ==
PROVIDERS: PCP General Practice; Referring Provider General Practice; Visit Provider Internal Medicine Cardiovascular Disease
DX: I10 Essential (primary) hypertension (principal); E78.00 Pure hypercholesterolemia, unspecified
CPT/HCPCS: 93010; 99214

== ENCOUNTER → 2023-06-30 10:43 | Outpatient (BNVA) | payer OTHER, SELFPAY | PROVIDERS: PCP General Practice; Referring Provider General Practice; Visit Provider Internal Medicine Cardiovascular Disease | DX: I10 Essential (primary) hypertension (principal); E78.00 Pure hypercholesterolemia, unspecified | CPT/HCPCS: 93005; 99212 ==

== ENCOUNTER 2023-07-02 06:50 | Day surgery (SDC) | payer OTHER, SELFPAY ==
--- NOTE | ~2023-07-02 | FL_ITS ---
EXAMINATION: XR FLUOROSCOPY WITH IMAGES CLINICAL INFORMATION: Sprint implant. COMPARISON: None available. TECHNIQUE: Fluoroscopy Supervised By: Dr. David Maravilla. Fluoroscopy Time: 0.2 minutes. Cumulative Dose: 2.02 mGy. DAP: 0.0179 Gycm2. Images: 1. FINDINGS: Image demonstrates lead projecting superior to the right spine of the scapula. FL/FL guidance in OR IMPRESSION: Fluoroscopic guidance for right shoulder lead placement.
[2023-07-02 07:00] VITALS: BMI 26.6
[2023-07-02 09:08] VITALS: BP 128/77; PULSE 62; RESP 18; TEMP 36.2; O2SAT 97
--- NOTE | 2023-07-02 18:00 | MHC.SHP ---
Pre-Procedural Eval Section A Date of Service: 07/02/23 The patient is an INPATIENT: No Changes since office visit: Yes Patient answered all questions The History & Physical has been completed within 30 days and I have reviewed it.: No Section B Chief Complaint: Primary osteoarthritis, right shoulder Relevant Family History (Specify if Yes): No Relevant Social History: None Present Medications: see Short Stay Collaborative assessment Medical History: No relevant PMH History of Previous Operations: No relevant previous surgery Allergies: Allergies Allergy/AdvReac Type Severity Reaction Status Date / Time codeine AdvReac Intermediate vertigo, Verified 07/02/23 07:00 nausea Review of Systems Sugical H&P ROS: Negative: Constitution, Cardiovascular and Respiratory Exam Surgical H&P Exam: Normal: HEENT, Normal: Heart and Normal: Lungs Plan Diagnosis/Plan: Unchanged I have reviewed the history and physical and performed a pertinent physical examination on my patient. No changes have occurred unless specified. Proceed with right suprascapular temporary nerve stimulator placement. Time Spent With Patient Time: Total time managing care of this patient today ____ minutes.
--- NOTE | 2023-07-02 18:00 | PM.OP ---
Brief Operative Note Date of Service: 07/02/23 Pre-op diagnosis: Intractable right shoulder pain, right shoulder osteoarthritis Post-op diagnosis: same Procedure: Temporary right suprascapular nerve stimulator placement Implants: Sprint temporary PNS system Surgeon: David Maravilla MD Anesthesia: MAC Was an Local Area Network Administrator used for this Procedure?: No Estimated blood loss (mL): 1 Pathology: none sent Condition: stable Disposition: same day
--- NOTE | 2023-07-02 18:02 | W.PM.OPN ---
Operative Note Operative Note Date of Service: 07/02/23 Narrative: Peripheral Nerve Stimulation Temporary Lead Placement, Fluoroscopy-Guided, Suprascapular Nerve, Right ? After the risks, benefits and alternatives were discussed with the patient and informed consent was obtained, patient was placed in the sitting position and padded to foster comfort. Appropriate skin and bony landmarks were identified using fluoroscopy, including the left suprascapular notch. The skin overlying the needle entry site was prepped and draped in sterile fashion. After identifying and marking the intended target along the course of the suprascapular nerve, the skin around the planned entry point and the subcutaneous tissues were injected with local anesthetic. An introducer needle and stimulating probe were assembled, inserted and advanced along the intended course of the suprascapular nerve, taking care to maintain the proper depth of insertion as the introducer was advanced under fluoroscopy guidance. Bony contact was achieved with the scapula and maintained throughout. The introducer needle was delivered to a location in proximity to the nerve. Multiple stimulation parameters were used to deliver stimulation to the suprascapular nerve in concert with stimulating at multiple positions around the nerve. Nerve target acquisition was confirmed noting generation of sensory and mild motor effects (paresthesia, muscle tension, etc) in the shoulder and proximal arm; corresponding to the distribution of the suprascapular nerve. Various electrical parameter combinations were tested, and the lead location was adjusted (physically relocated under image guidance) until the patient indicated shoulder paresthesia and tension overlapping the distribution of the patient?s typical region of pain. The stimulating probe was removed from the introducer and a percutaneous lead was guided through the needle and delivered to a location in similar proximity to the nerve. Final location was verified with electrical stimulation and documented. The introducer needle was removed, and the exposed end of the percutaneous lead was attached to an external stimulator unit. Various electrical parameter combinations were again tested until the patient indicated paresthesia and muscle tension overlapping the distribution of the patient?s typical region of pain. After confirming that lead impedance was in the normal range, the external unit was detached, the needle was removed, and the lead was anchored at the skin. The needle entry site was occluded with dermabond. The lead was threaded into the connector block and electrical continuity and desired patient response was confirmed. The connector block was attached to the external stimulator unit. The site was covered with a sterile occlusive dressing.? A final image was taken to document final placement. The patient was observed for stability of vital signs and comfort.
== END 2023-07-02 09:55 | disposition home or self-care (01) ==
PROVIDERS: PCP General Practice; Visit Provider Internal Medicine
PROC: (CPT 64555; principal; 2023-07-02 08:20)
DX: M19.011 Primary osteoarthritis, right shoulder (principal); G89.29 Other chronic pain; M47.816 Spondylosis without myelopathy or radiculopathy, lumbar region; G47.33 Obstructive sleep apnea (adult) (pediatric); I10 Essential (primary) hypertension; E11.9 Type 2 diabetes mellitus without complications; E78.00 Pure hypercholesterolemia, unspecified; Z98.1 Arthrodesis status; Z88.5 Allergy status to narcotic agent; F17.210 Nicotine dependence, cigarettes, uncomplicated; G43.909 Migraine, unspecified, not intractable, without status migrainosus
CPT/HCPCS: 64555; C1778

== ENCOUNTER → 2023-07-02 06:50 | Outpatient (BNV) | payer OTHER, SELFPAY | PROVIDERS: PCP General Practice; Visit Provider Internal Medicine | DX: M19.011 Primary osteoarthritis, right shoulder (principal) | CPT/HCPCS: 64555 ==

== ENCOUNTER 2023-07-07 14:44 | Outpatient (AMB) | payer OTHER, SELFPAY ==
--- NOTE | 2023-07-07 14:48 | MHC.OFFVIS ---
Intake Vital Signs 07/07/23 14:50 Height 5 ft 1 in Weight 141 lb BMI 26.6 BP 141/65 H Blood Pressure Location Lt brachial Position Sitting Respiration 14 Pulse 70 Pulse Source Pulse Oximeter Pulse Oximetry (%) 99 Oxygen Delivery Method Room Air Intake Visit Reasons: s/p Right suprascapular Sprint Intake Note: Pt also meeting with Ember from Sprint to go over settings Allergies codeine Adverse Reaction (Intermediate, Verified 07/07/23 14:51) vertigo, nausea Medication List - Last Reconciled 07/07/23 by Monica Block LPN acetaminophen ER (8 Hour Pain Reliever) 650 mg PO Q8H PRN alcohol swabs (BD Alcohol Swabs) 1 pad topical BID atenolol 75 mg PO DAILY atogepant (Qulipta) 60 mg PO DAILY 30 days atorvastatin 40 mg PO BEDTIME [BISACODYL EC 5MG TAB TAKE 2 TABLETS BY MOUTH AT BEDTIME] caffeine 200 mg PO DAILY 30 days cholecalciferol (vitamin D3) (Vitamin D3) 25 mcg PO DAILY clonazepam 0.5 mg PO BEDTIME 30 days dapagliflozin propanediol (Farxiga) 5 mg PO DAILY docusate sodium 100 mg PO BID PRN dulaglutide (Trulicity) 1.5 mg subcut QWEEK galcanezumab-gnlm (Emgality Pen) 120 mg subcut ONCE 30 days glipizide ER 20 mg PO DAILY hydrochlorothiazide 25 mg PO DAILY hydrocortisone 2.5% (Proctosol HC) 1 appl GA BID PRN lancets (FreeStyle Lancets) As directed lisinopril 20 mg PO DAILY melatonin 5 mg PO BEDTIME menthol-zinc oxide 0.44-20.6 % (Calmoseptine) 1 appl topical QID PRN menthol-zinc oxide 0.44-20.6 % (Calmoseptine) 1 appl topical TID PRN omeprazole 20 mg PO DAILY 30 days prednisone 60 mg (3 x 20 mg) PO DAILY 5 days sumatriptan succinate 50 - 100 mg orally at onset of headache, may repeat in 2 hrs PRN; max 2 tabs per day or 4 tabs/week (may take with Ibuprofen) 30 days HPI s/p Right suprascapular Sprint HPI Details 68-year-old female who presents today to the office for a status post right suprascapular sprint. The patient reports >90% relief following the procedure. She states that her shoulder pain was resolved. The patient endorses appropriate paresthesia sensation from the device. The device is functional at 87. The patient has been wearing the device constantly except during driving. Past procedures: 07/02/23: Peripheral Nerve Stimulation Temporary Lead Placement, Fluoroscopy-Guided, Suprascapular Nerve, Right: >90% relief. 03/26/23: right glenohumeral injection under fluoroscopy: 80% relief for two weeks. 10/07/22: Right subacromial bursa injection under ultrasound guidance - 75% relief for 2 months. 08/12/22: Right subacromial bursa injection under ultrasound guidance - 70% relief for 8 weeks. [facility] Medical History Back pain, chronic Bleeding hemorrhoids Diabetes GERD (gastroesophageal reflux disease) High cholesterol HTN (hypertension) Migraines Spondylosis of lumbar spine Surgical History History of hemorrhoidectomy (~04/01/23) History of esophagogastroduodenoscopy (EGD) Hx of fusion of cervical spine Hx of colonoscopy Hx of cholecystectomy Hx of tubal ligation Family History Father History of heart attack Mother Hx of type 1 diabetes mellitus Family history of high blood pressure Social History Alcohol intake: never Patient Tobacco Use Status: Current everyday Tobacco user Tobacco use type: Cigarette Cigarette Packs Per Day: 0.5 Cigarettes Per Day: 10 Years Smoked: 45 Current occupational status: employed 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 Alert and oriented. Mood and affect appropriate. Follows and participates in conversation appropriately. Respiratory effort is unlabored. Able to transition from sit to stand unassisted. Ambulates with bilaterally normal heel strike and toe off. Lead insertion site is clean dry and intact Results Reviewed Results Reviewed: No imaging is available for review. Assessment & Plan Assessment & Plan (1) Impingement syndrome of right shoulder: Code(s): M75.41 - Impingement syndrome of right shoulder (2) Arthritis of right shoulder region: Code(s): M19.011 - Primary osteoarthritis, right shoulder Plan Recommend weaning down on the stimulation amplitude to decrease adverse effects from over stimulation of the local muscles. The site was clean, dry, and intact. The dressing was changed today in the office. The patient will follow-up in seven weeks for removal of the lead. Scribed for Dr. Maravilla by Mendoza Contreras, medical records auditor, on 07/07/2023. I, Dr. Maravilla, have personally reviewed and agree with the information entered by the scribe. Coding Level of Care Code Est Pt Level 3 (74653) Diagnoses Impingement syndrome of right shoulder M75.41 Arthritis of right shoulder region M19.011
[2023-07-07 14:50] VITALS: BP 141/65; PULSE 70; RESP 14; O2SAT 99; BMI 26.6
== END 2023-07-07 15:09 | disposition home or self-care (01) ==
PROVIDERS: PCP General Practice; Visit Provider Internal Medicine
DX: M75.41 Impingement syndrome of right shoulder (principal); M19.011 Primary osteoarthritis, right shoulder
CPT/HCPCS: 99024

== ENCOUNTER → 2023-07-07 14:44 | Outpatient (BNVA) | payer OTHER, SELFPAY | PROVIDERS: PCP General Practice; Visit Provider Internal Medicine | DX: M75.41 Impingement syndrome of right shoulder (principal); M19.011 Primary osteoarthritis, right shoulder | CPT/HCPCS: 99212 ==

== ENCOUNTER 2023-08-01 08:34 | Outpatient (AMB) | payer OTHER, SELFPAY ==
[2023-08-01 08:56] VITALS: BP 134/62; PULSE 77; RESP 16; O2SAT 98; BMI 28.0
--- NOTE | 2023-08-01 08:56 | A.OFFVIS_ITS ---
Intake Vital Signs 08/01/23 08:56 Height 5 ft 1 in Weight 148 lb BMI 28.0 BP 134/62 Blood Pressure Location Lt brachial Position Sitting Respiration 16 Pulse 77 Pulse Source Pulse Oximeter Pulse Oximetry (%) 98 Oxygen Delivery Method Room Air Intake Visit Reasons: Sprint removal Allergies codeine Adverse Reaction (Intermediate, Verified 08/01/23 08:57) vertigo, nausea HPI HPI Comments History of Present Illness Details Stephanie is a very pleasant 68 year old female who presents to the office today for follow up s/p Right Suprascapular Sprint PNS placed 07/02/2023. Patient reports continued pain relief, >90%. She does endorse some discomfort in the surrounding muscle from the device. She has been taking breaks from the stimulation to help with this discomfort. Overall, patient is very satisfied with the relief she is receiving from the device. Past procedures: 07/02/23: Peripheral Nerve Stimulation T emporary Lead Placement, Fluoroscopy- Guided, Suprascapular Nerve, Right: >90% relief. 03/26/23: right glenohumeral injection un tamie fluoroscopy: 80% relief for two weeks. 10/07/22: Right subacromial bursa inject ion under ultrasound guidance - 75% relief for 2 months. 08/12/22: Right subacromial bursa inject ion under ultrasound guidance - 70% relief for 8 weeks. [facility] Medical History Back pain, chronic Bleeding hemorrhoids Diabetes GERD (gastroesophageal reflux disease) High cholesterol HTN (hypertension) Migraines Spondylosis of lumbar spine Surgical History History of hemorrhoidectomy (~04/01/23) History of esophagogastroduodenoscopy (EGD) Hx of fusion of cervical spine Hx of colonoscopy Hx of cholecystectomy Hx of tubal ligation Family History Father History of heart attack Mother Hx of type 1 diabetes mellitus Family history of high blood pressure Social History Alcohol intake: never Patient Tobacco Use Status: Current everyday Tobacco user Tobacco use type: Cigarette Cigarette Packs Per Day: 0.5 Cigarettes Per Day: 10 Years Smoked: 45 Current occupational status: employed 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 Answers questions appropriately. Fully engaged in examination. Skin: warm, dry, intact HEENT: Normocephalic. Hearing intact. Cardiac: External chest normal in appearance. Respiratory: No cough, audible wheezing or stridor. Abdomen: without gross distension. MS: No obvious swelling or deformities. Neurological: Oriented to person, place, time and situation. Thought process intact. No gait abnormalities appreciated. Psychiatric: Appropriate mood and affect. Good judgment and insight. Right Suprascapular Sprint PNS insertion site dry, clean, intact. Dressing changed, Sprint Tegaderm for sensative skin applied per patient request. Assessment & Plan Assessment & Plan (1) Impingement syndrome of right shoulder: Code(s): M75.41 - Impingement syndrome of right shoulder (2) Arthritis of right shoulder region: Code(s): M19.011 - Primary osteoarthritis, right shoulder Plan Stephanie is a very pleasant 68 year old female who presented to the office for follow up right Suprascapular Sprint PNS placed 07/02/2023. Patient tolerating well with reported >90% pain relief since placement. She reports discomfort to surrounding muscles d/t stimulation, she was advised to try tapering down the stimulation to ease this sensation. Dressing changed today. Incision site dry, clean, intact without redness or drainage. Patients daughter has been changing dressing at home without difficulty. All questions and concerns addressed during the visit. Patient will follow up as planned for device removal. Coding Level of Care Code Est Pt Level 3 (57471) Diagnoses Impingement syndrome of right shoulder M75.41 Arthritis of right shoulder region M19.011
== END 2023-08-01 09:09 | disposition home or self-care (01) ==
PROVIDERS: PCP General Practice; Visit Provider Registered Nurse Emergency
DX: M75.41 Impingement syndrome of right shoulder (principal); M19.011 Primary osteoarthritis, right shoulder
CPT/HCPCS: 99213

== ENCOUNTER → 2023-08-01 08:34 | Outpatient (BNVA) | payer OTHER, SELFPAY | PROVIDERS: PCP General Practice; Visit Provider Registered Nurse Emergency | DX: M75.41 Impingement syndrome of right shoulder (principal); M19.011 Primary osteoarthritis, right shoulder; Z96.89 Presence of other specified functional implants | CPT/HCPCS: 99212 ==

== ENCOUNTER 2023-08-12 10:18 | Outpatient (AMB) | payer OTHER, SELFPAY ==
--- NOTE | 2023-08-12 10:39 | A.OFFVIS_ITS ---
Intake Vital Signs 08/12/23 10:40 Height 5 ft 1 in Weight 148 lb BMI 28.0 Intake Visit Reasons: new prob- Carpal tunnel syndrome right Intake Note: Stephanie 68 yr old right hand dominant female, presents today for a new problem visit for numbness and tingling of her right hand. States symptoms started about 2-3 months and has worsen since. States she has on and off tingling through out the day. States she wakes up with severe numbness in the mornings. Patient has tried using a brace, topical creams with no help. Patient would like to discuss her treatment options. EMG done. Patient is diabetic and her current A1C is 6.1. Allergies codeine Adverse Reaction (Intermediate, Verified 08/12/23 10:50) vertigo, nausea HPI new prob- Carpal tunnel syndrome right HPI Details Stephanie is a 68 year old right hand dominant speaking woman who presents for a NCS review of her right hand numbness. She actually complains of numbness and tingling in both hands right worse than left. She had a nerve conduction study performed on her right upper extremity only. Her symptoms are intermittent but daily and wake her up at night. She denies any small finger numbness. She has a hx of C-spine fusion in the past. [facility] Medical History Back pain, chronic Bleeding hemorrhoids Diabetes GERD (gastroesophageal reflux disease) High cholesterol HTN (hypertension) Migraines Spondylosis of lumbar spine Surgical History History of hemorrhoidectomy (~04/01/23) History of esophagogastroduodenoscopy (EGD) Hx of fusion of cervical spine Hx of colonoscopy Hx of cholecystectomy Hx of tubal ligation Family History Father History of heart attack Mother Hx of type 1 diabetes mellitus Family history of high blood pressure Social History Alcohol intake: never Patient Tobacco Use Status: Current everyday Tobacco user Tobacco use type: Cigarette Cigarette Packs Per Day: 0.5 Cigarettes Per Day: 10 Years Smoked: 45 Current occupational status: employed 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 [employer] Review of Systems Const All systems reviewed & are unremarkable except as noted in HPI and below Physical Exam Vital Signs: BMI result Body Mass Index 28.0 Const General: cooperative, healthy appearing and no acute distress Orientation/consciousness: patient oriented x3 HEENT Head: Yes normocephalic and Yes atraumatic Eyes EOM: EOMs intact bilaterally Resp Effort & Inspection: normal respiratory effort and able to speak in complete sentences Cardio Jugular venous distension: no JVD Skin General skin exam: turgor normal Rashes: no rashes Neuro General: patient oriented x3 Extrem Other: Evaluation of Right Upper Extremity: The patient is alert, oriented, and in no acute distress Neuro: Median, Ulnar, Radial nerves motor and sensory intact and sensation is normal to the tips of all digits No thenar or intrinsic wasting Good APB muscle belly firing and good finger cross Vascular: Cap refill brisk ROM: She can make a fist and extend all her digits Skin: No lacerations or abrasions. General: No Ecchymosis. No Erythema or evidence of infection. Nerve Conduction Study: RUE only IMPRESSION: 1. This is an abnormal study. 2. 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 3. There is no electrodiagnostic evidence for ulnar neuropathy, brachial plexopathy, or cervical radiculopathy. Thank you for your kind referral. Zoey Jacob MD, TIERNEY 06/05/23 Psych Appearance: grossly normal Affect: normal affect Attitude: cooperative Assessment & Plan Assessment & Plan (1) Carpal tunnel syndrome of right wrist: Code(s): G56.01 - Carpal tunnel syndrome, right upper limb (2) Diabetes: Code(s): E11.9 - Type 2 diabetes mellitus without complications Plan Assessment & Plan: 1. Right Carpal tunnel syndrome, moderate-severe Symptoms intermittent, but daily, worse at night I educated her about this condition I discussed operative and non-operative treatment options The patient would like to proceed with surgery The risks and benefits of operative treatment were discussed with the patient and the patient wishes to proceed with surgery. These risks include, but are not limited to risk of damage to blood vessels, nerves, tendons, infection, recurrence, incomplete relief of preoperative symptoms, persistent pain, possible need for further surgery and the risks associated with regional blocks and anesthesia. The plan is to take the patient to the operating room sometime in the next few weeks for the following procedures: 1. Right carpal tunnel release, under local All of the preoperative paperwork including the consent was filled out today. All the patient's questions were answered. The patient understands that they will be contacted by our oral surgery physician soon to schedule this procedure She denies blood thinners, asthma, heart, lung, kidney issues She is a Diabetic, we do not have a HgA1c on file but she says her most recent was 6.1% 2. Left hand numbness In the median nerve distribution Symptoms intermittent, but daily, worse at night Her NCS was performed on her right-side only We can discuss possible treatment verses a NCS for her left side at a later date Scribed for Yesica Enriquez MD by Reno Ibrahim, medical officer psychiatry, on 08/12/23 at 11:25 AM, EST. Coding Level of Care Code New Pt Level 4 (38885) Diagnoses Carpal tunnel syndrome of right wrist G56.01 Diabetes E11.9
[2023-08-12 10:40] VITALS: BMI 28.0
== END 2023-08-12 12:11 | disposition home or self-care (01) ==
PROVIDERS: PCP General Practice; Visit Provider Orthopaedic Surgery
DX: G56.01 Carpal tunnel syndrome, right upper limb (principal)
CPT/HCPCS: 99214

== ENCOUNTER → 2023-08-12 10:18 | Outpatient (BNVA) | payer OTHER, SELFPAY | PROVIDERS: PCP General Practice; Visit Provider Orthopaedic Surgery | DX: G56.01 Carpal tunnel syndrome, right upper limb (principal); E11.9 Type 2 diabetes mellitus without complications | CPT/HCPCS: 99212 ==

== ENCOUNTER 2023-08-22 10:46 | Outpatient (AMB) | payer OTHER, SELFPAY ==
--- NOTE | 2023-08-22 10:53 | MHC.OFFVIS ---
Intake Vital Signs 08/22/23 11:18 Height 5 ft 1 in Weight 148 lb BMI 28.0 BP 124/82 Blood Pressure Location Rt brachial Position Sitting Intake Visit Reasons: 3m follow up Migraine/Confirmed Intake Note: Patient presents for 3 months follow up migraines. Patient states they're better, i just get them every morning. Allergies codeine Adverse Reaction (Intermediate, Verified 08/22/23 11:19) vertigo, nausea Medication List - Last Reconciled 08/22/23 by MAURO Larios acetaminophen ER (8 Hour Pain Reliever) 650 mg PO Q8H PRN alcohol swabs (BD Alcohol Swabs) 1 pad topical BID atenolol 75 mg PO DAILY atogepant (Qulipta) 60 mg PO DAILY 30 days atorvastatin 40 mg PO BEDTIME [BISACODYL EC 5MG TAB 2 tabs PO BEDTIME] caffeine 200 mg PO DAILY 30 days cholecalciferol (vitamin D3) (Vitamin D3) 25 mcg PO DAILY clonazepam 0.5 mg PO BEDTIME 30 days dapagliflozin propanediol (Farxiga) 5 mg PO DAILY docusate sodium 100 mg PO BID PRN dulaglutide (Trulicity) 1.5 mg subcut QWEEK galcanezumab-gnlm (Emgality Pen) 120 mg subcut ONCE 30 days glipizide ER 20 mg PO DAILY hydrochlorothiazide 25 mg PO DAILY hydrocortisone 2.5% (Proctosol HC) [address] BID PRN lancets (FreeStyle Lancets) As directed lisinopril 20 mg PO DAILY melatonin 5 mg PO BEDTIME menthol-zinc oxide 0.44-20.6 % (Calmoseptine) 1 appl topical QID PRN menthol-zinc oxide 0.44-20.6 % (Calmoseptine) 1 appl topical TID PRN omeprazole 20 mg PO DAILY 30 days prednisone 60 mg (3 x 20 mg) PO DAILY 5 days sumatriptan succinate 50 - 100 mg orally at onset of headache, may repeat in 2 hrs PRN; max 2 tabs per day or 4 tabs/week (may take with Ibuprofen) 30 days HPI HPI Comments History of Present Illness Details 68-yr-old female presents for f/u visit. Pt has had a right suprascapular pain stimulator placed. Pt states that the headaches are fine . She does wake up with a headache, but it quickly subsides after she takes her Qulipta 60mg qam. Rarely has a migraine in the afternoon or evening if she has had a stressful day. She continues on her Emgality monthly on the 3rd of the month- with good effect. She has not needed to take the Sumatriptan yet- but notes she was not sure when exactly to try it. [facility] Medical History Back pain, chronic Bleeding hemorrhoids Diabetes GERD (gastroesophageal reflux disease) High cholesterol HTN (hypertension) Migraines Spondylosis of lumbar spine Surgical History History of hemorrhoidectomy (~04/01/23) History of esophagogastroduodenoscopy (EGD) Hx of fusion of cervical spine Hx of colonoscopy Hx of cholecystectomy Hx of tubal ligation Family History Father History of heart attack Mother Hx of type 1 diabetes mellitus Family history of high blood pressure Social History Alcohol intake: never Patient Tobacco Use Status: Current everyday Tobacco user Tobacco use type: Cigarette Cigarette Packs Per Day: 0.5 Cigarettes Per Day: 10 Years Smoked: 45 Current occupational status: employed 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 Review of Systems Const All systems reviewed & are unremarkable except as noted in HPI and below Physical Exam Vital Signs: Last Vital Signs BP 124/82 08/22/23 11:18 BMI result Body Mass Index 28.0 Const General: cooperative and no acute distress Orientation/consciousness: patient oriented x3 HEENT Head: Yes normocephalic Resp Effort & Inspection: normal respiratory effort and able to speak in complete sentences Neuro General: patient oriented x3, gait normal and CN's II-XI intact bilaterally Cognition (Neuro): normal cognition Motor exam (neuro): 5/5 motor strength present throughout Psych Appearance: grossly normal Mental Status: mental status grossly normal Speech and movement: Normal speech and movement present Affect: normal affect Attitude: cooperative Thought process: Normal thought process present Thought content: Normal thought content present Insight: Good insight present (Psych) Judgement: Good judgement present (Psych) Assessment & Plan Assessment & Plan (1) Chronic migraine without aura: Comment: ? hypnic headache component Code(s): G43.709 - Chronic migraine without aura, not intractable, without status migrainosus (2) SHUN (obstructive sleep apnea): Comment: AHI 6/hr Code(s): G47.33 - Obstructive sleep apnea (adult) (pediatric) Plan For overall headache management: Continue optimizing good self-care, including but not limited to maintaining a healthy diet,? adequate fluid intake, adequate sleep, and engaging in regular physical activity. ? For acute headache treatment: BP is still normotensive. Again trial Sumatriptan 100mg tab, 1/2 - 1 tab (50-100mg) at onset of headache, may repeat in 2 hours. Max of 2 tabs (200mg) per 24 hours. May adjunct with OTC Tylenol 650mg q 4 hours, Ibuprofen 600mg q 6 hours, or Naproxen 440mg q 12 hrs prn. Previous acute migraine medication trials: Nurtec- ineffective, Ubrelvy- ineffective. Fioricet- ineffective. Acute migraine medication contraindications: none at this time. ? For headache prevention medication: Discussed that preventative medications should be taken routinely as prescribed for best effect, it may take several weeks for full effect to take effect. Continue Qulipta (atogepant) 60 mg po qhs- monitor for s/e of constipation. Continue Emgality 120mg sc monthly Pt is currently in Atenolol for HTN. Previous migraine prevention medication trials: Gabapentin- ineffective, Amitriptyline- ineffective, Topiramate- ineffective, Botox x's 2 tx sessions- ineffective, bi-temporal trigger point injections- ineffective. Magnesium 400mg qhs- not tolerated. Riboflavin- ineffective. Baclofen 10-20mg qhs- not tolerated. Riboflavin 400mg- inefefctive Migraine prevention medication contraindications: Aimovig d/t h/o RLS and constipation. Future considerations- Caffeine qhs, [place]. ? For sleep and restless leg syndrome: Clonazepam 0.5mg po qhs. Previous trials- Amitriptyline 10-20mg qhs- did not help sleep or headaches. Pt would not be a candidate for Inspire, as her last sleep study showed mild SHUN. Future considerations- mandibular device. ? f/u in 4 months or sooner any new or worsening s/s. Coding Level of Care Code Est Pt Level 4 (76610) Diagnoses Chronic migraine without aura G43.709 SHUN (obstructive sleep apnea) G47.33
[2023-08-22 11:18] VITALS: BP 124/82; BMI 28.0
== END 2023-08-22 11:44 | disposition home or self-care (01) ==
PROVIDERS: PCP General Practice; Visit Provider Nurse Practitioner Family
DX: G43.709 Chronic migraine without aura, not intractable, without status migrainosus (principal); G47.33 Obstructive sleep apnea (adult) (pediatric)
CPT/HCPCS: 99214

== ENCOUNTER → 2023-08-22 10:46 | Outpatient (BNVA) | payer OTHER, SELFPAY | PROVIDERS: PCP General Practice; Visit Provider Nurse Practitioner Family | DX: G43.709 Chronic migraine without aura, not intractable, without status migrainosus (principal); G47.33 Obstructive sleep apnea (adult) (pediatric) | CPT/HCPCS: 99212 ==

== ENCOUNTER 2023-08-29 08:42 | Outpatient (AMB) | payer OTHER, SELFPAY ==
[2023-08-29 08:53] VITALS: BP 143/69; PULSE 76; RESP 18; O2SAT 97; BMI 27.3
--- NOTE | 2023-08-29 08:53 | A.OFFVIS_ITS ---
Intake Vital Signs 08/29/23 08:53 Height 5 ft 1 in Weight 144 lb 8 oz BMI 27.3 BP 143/69 H Blood Pressure Location Lt brachial Position Sitting Respiration 18 Pulse 76 Pulse Source Pulse Oximeter Pulse Oximetry (%) 97 Oxygen Delivery Method Room Air Intake Visit Reasons: Sprint removal/confirmed Allergies codeine Adverse Reaction (Intermediate, Verified 08/29/23 08:53) vertigo, nausea HPI HPI Comments History of Present Illness Details Stephanie is a very pleasant 68-year-old female who presents to the office today for follow up and removal of right suprascapular sprint placed 08/01/23. The patient reports >90% relief since placement of the device. She states that her shoulder pain has resolved and she has improved function of the right arm. Past procedures: 07/02/23: Peripheral Nerve Stimulation T emporary Lead Placement, Fluoroscopy- Guided, Suprascapular Nerve, Right: >90% relief. 03/26/23: right glenohumeral injection un tamie fluoroscopy: 80% relief for two weeks. 10/07/22: Right subacromial bursa inject ion under ultrasound guidance - 75% relief for 2 months. 08/12/22: Right subacromial bursa inject ion under ultrasound guidance - 70% relief for 8 weeks. [facility] Medical History Back pain, chronic Bleeding hemorrhoids Diabetes GERD (gastroesophageal reflux disease) High cholesterol HTN (hypertension) Migraines Spondylosis of lumbar spine Surgical History History of hemorrhoidectomy (~04/01/23) History of esophagogastroduodenoscopy (EGD) Hx of fusion of cervical spine Hx of colonoscopy Hx of cholecystectomy Hx of tubal ligation Family History Father History of heart attack Mother Hx of type 1 diabetes mellitus Family history of high blood pressure Social History Alcohol intake: never Patient Tobacco Use Status: Current everyday Tobacco user Tobacco use type: Cigarette Cigarette Packs Per Day: 0.5 Cigarettes Per Day: 10 Years Smoked: 45 Current occupational status: employed 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 Answers questions appropriately. Fully engaged in examination. Skin: warm, dry, intact HEENT: Normocephalic. Hearing intact. Cardiac: External chest normal in appearance. Respiratory: No cough, audible wheezing or stridor. Abdomen: without gross distension. MS: No obvious swelling or deformities. Neurological: Oriented to person, place, time and situation. Thought process intact. No gait abnormalities appreciated. Psychiatric: Appropriate mood and affect. Good judgment and insight. Right Suprascapular Sprint PNS: Dressing removed, Site dry, clean, intact. Area cleansed with chloraprep, lead removed with intact tip. Area cleansed again with chloraprep, bacitracin dressing with tegaderm applied. Patient tolerated removal well. Assessment & Plan Assessment & Plan (1) Impingement syndrome of right shoulder: Code(s): M75.41 - Impingement syndrome of right shoulder (2) Arthritis of right shoulder region: Code(s): M19.011 - Primary osteoarthritis, right shoulder Plan Stephanie is a very pleasant 68 year old female who presented to the office today for follow up with removal of right Suprascapular Sprint PNS placed 07/02/2023. Patient reports >90% pain relief since placement with resolution of her right shoulder pain and improvement in function and mobility. Lead removed today, as per above. Site dry, clean without redness warmth or discharge. All questions and concerns addressed during the visit. Patient will follow up as needed. Coding Level of Care Code Est Pt Level 3 (83105) Diagnoses Impingement syndrome of right shoulder M75.41 Arthritis of right shoulder region M19.011
== END 2023-08-29 08:53 | disposition home or self-care (01) ==
PROVIDERS: PCP General Practice; Visit Provider Registered Nurse Emergency
DX: M75.41 Impingement syndrome of right shoulder (principal); M19.011 Primary osteoarthritis, right shoulder
CPT/HCPCS: 99213

== ENCOUNTER → 2023-08-29 08:42 | Outpatient (BNVA) | payer OTHER, SELFPAY | PROVIDERS: PCP General Practice; Visit Provider Registered Nurse Emergency | DX: M75.41 Impingement syndrome of right shoulder (principal); M19.011 Primary osteoarthritis, right shoulder | CPT/HCPCS: 99212 ==

== ENCOUNTER 2023-09-04 09:16 | Outpatient (AMB) | payer OTHER, SELFPAY ==
--- NOTE | 2023-09-04 09:24 | MHC.OFFVIS ---
Intake Vital Signs 09/04/23 09:26 Height 5 ft 1 in Weight 147 lb 11.355 oz BMI 27.9 BP 120/66 Blood Pressure Location Lt brachial Position Sitting Pulse 70 Intake Visit Reasons: 6 Month Follow Up Intake Note: Patient presents to in offfice visit today in follow up of CIC. CC: Patient reports doing well with occasional constipation because she states she needs a refill on bisacodyl. Integrity Assessor Required: No Allergies codeine Adverse Reaction (Intermediate, Verified 09/04/23 09:28) vertigo, nausea HPI 6 Month Follow Up HPI Details Assessment & Plan (1) Tubular adenoma of colon: Comment: 2015 scope=TA, 2022 scope equals TA repeat 3 years Code(s): D12.6 - Benign neoplasm of colon, unspecified Plan: The procedure should be repeated in 3 years due to the finding of a larger tubular adenoma. She did not like the oral liquid prep, so consider if Sutab is covered for the next one. The procedure was well tolerated. The results were explained and the patient is agreeable to the follow-up interval as stated. The bowel pattern has returned to normal. Education was provided to tell any 1st degree relatives about their findings to be sure that they are screened by age 45. Educated that they will be put on a recall list when it is time for their repeat scope but should they move out of state or away from the hospital they will need to remember along with their primary to repeat the procedure in a timely fashion to avoid any adverse complications. She is very concerned about her hemorrhoids as she is bleeding like a period with just about every BM. She uses the Linzess consistently as directed,, and even with this she has to strain to start her BM. She uses the hemorrhoid cream cream w/o good effect. She had a past hemorrhoidectomy with Dr. Cheung and would like to see him again - referred. ROV 6 mos. (2) Chronic idiopathic constipation: Code(s): K59.04 - Chronic idiopathic constipation (3) Celiac disease: Code(s): K90.0 - Celiac disease Orders: Referrals General Surgery Re salome K64.9 - Unspecifie d hemorrhoids Medications: Refilled hydrocortisone 2.5 % (Proctosol HC) 1 appl MT BID PRN 30 grams 3RF hemo rrhoids TODAY'S VISIT She says that she continues to do very well and is happy with her GI regimen. She continues on her bisacodyl, docusate, and hydrocortisone cream with good control of her constipation and her hemorrhoids. She has no new health problems to report. Return office visit in 6 months. [facility] Medical History Bleeding hemorrhoids Spondylosis of lumbar spine GERD (gastroesophageal reflux disease) Diabetes High cholesterol HTN (hypertension) Back pain, chronic Migraines Surgical History History of hemorrhoidectomy (~04/01/23) History of esophagogastroduodenoscopy (EGD) Hx of fusion of cervical spine Hx of colonoscopy Hx of cholecystectomy Hx of tubal ligation Family History Father History of heart attack Mother Hx of type 1 diabetes mellitus Family history of high blood pressure Social History Alcohol intake: never Patient Tobacco Use Status: Current everyday Tobacco user Tobacco use type: Cigarette Cigarette Packs Per Day: 0.5 Cigarettes Per Day: 10 Years Smoked: 45 Current occupational status: employed 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 Review of Systems Const Denies fatigue, Denies fever(s), Denies night sweats, Denies poor appetite and Denies weight loss ENT Reports Normal hearing present, Denies dental pain, Denies dysphagia, Denies hearing loss, Denies mouth pain, Denies odynophagia, Denies throat swelling, Denies tongue swelling and Reports other (Dentition adequate) Card Reports no additional complaints Resp Reports no additional complaints GI Denies abdominal pain, Denies melena, Denies bloating, Denies hematochezia, Reports constipation, Denies GI cramping, Denies dysphagia, Denies excessive flatus, Denies early satiety, Denies heartburn, Denies diarrhea, Denies nausea, Denies odynophagia, Denies vomiting and Denies hematemesis Skin/Breast Denies pruritus, Denies lesions, Denies rash and Denies jaundice Neuro Reports Normal hearing present and Denies Abnormal speech present Endo Denies fatigue Aller/Immun Denies throat swelling and Denies tongue swelling Physical Exam Vital Signs: Last Vital Signs Pulse 70 09/04/23 09:26 BP 120/66 09/04/23 09:26 BMI result Body Mass Index 27.9 Const General: cooperative, no acute distress, well developed and well groomed Nutritional Appearance: average body habitus and well nourished Orientation/consciousness: oriented to person, oriented to place and oriented to time Limitations: No language barrier HEENT Head: Yes normocephalic and Yes atraumatic Eyes General: appearance normal, both eyes and all related structures Pupils: Equal, round and reactive pupils present Neck Neck: Yes normal visual inspection and Yes no lymphadenopathy Thyroid: Thyroid normal Resp Effort & Inspection: normal respiratory effort and able to speak in complete sentences Auscultation: clear to auscultation bilaterally Cardio Rate: regular rate Rhythm: regular rhythm Heart sounds: Normal, physiologic split S2 sound present Peripheral pulses: radial pulses present and posterior tibial pulses present GI Inspection: No distended and No Abdominal panniculus present Palpation (GI): Soft to palpation, nontender, no guarding, not rigid and No hepatosplenomegaly present Percussion: Yes normal to percussion Auscultation: normal bowel sounds Rectal Exam - Female: deferred Skin General skin exam: no rashes or lesions noted, turgor normal, skin not dry, no jaundice, No spider nevi and no striae Rashes: no rashes Nails: normal Neuro General: oriented to person, oriented to place and oriented to time Cranial nerves: Yes Equal, round and reactive pupils present and Yes Normal hearing present Speech: No Abnormal speech present Extrem General: Yes normal to inspection, No clubbing, No cyanosis and No edema Psych Appearance: grossly normal and well kempt Mental Status: mental status grossly normal Speech and movement: Normal speech and movement present Affect: normal affect Attitude: cooperative Thought process: Normal thought process present and not confabulating Thought content: Normal thought content present Insight: Fair insight present (Psych) Judgement: Fair judgement present (Psych) Assessment & Plan Assessment & Plan (1) Chronic idiopathic constipation: Code(s): K59.04 - Chronic idiopathic constipation Plan: She says that she continues to do very well and is happy with her GI regimen. She continues on her bisacodyl, docusate, and hydrocortisone cream with good control of her constipation and her hemorrhoids. She has no new health problems to report. Return office visit in 6 months. (2) Celiac disease: Code(s): K90.0 - Celiac disease Medications: New bisacodyl (Dulcolax (bisacodyl)) 10 mg (2 x 5 mg) PO BEDTIME 30 days 60 tabs 6RF K59.04 - Chronic idiopathic constipation Refilled docusate sodium 100 mg PO BID PRN 60 caps 6RF Constipation hydrocortisone 2.5% (Proctosol HC) 1 appl MT BID PRN 30 grams 3RF hemorrhoids Discontinued omeprazole Discontinued Reason: Doctor's Order 20 mg PO DAILY 30 days 30 caps 0RF Coding Level of Care Code Est Pt Level 3 (87881) Diagnoses Chronic idiopathic constipation K59.04 Celiac disease K90.0
[2023-09-04 09:26] VITALS: BP 120/66; PULSE 70; BMI 27.9
== END 2023-09-04 10:06 | disposition home or self-care (01) ==
PROVIDERS: Visit Provider Nurse Practitioner
DX: K90.0 Celiac disease (principal)
CPT/HCPCS: 99213

== ENCOUNTER → 2023-09-04 09:16 | Outpatient (BNVA) | payer OTHER, SELFPAY | PROVIDERS: Visit Provider Nurse Practitioner | DX: K59.04 Chronic idiopathic constipation (principal); K90.0 Celiac disease | CPT/HCPCS: 99212 ==

== ENCOUNTER 2023-10-23 12:28 | Day surgery (SDC) | payer OTHER, SELFPAY ==
[2023-10-23 12:41] VITALS: BMI 28.9
[2023-10-23 13:12] VITALS: BP 139/68; PULSE 70; RESP 18; TEMP 36.8; O2SAT 98
--- NOTE | 2023-10-23 14:33 | MHC.SHP ---
Pre-Procedural Eval Section A Date of Service: 10/23/23 The patient is an INPATIENT: No Changes since office visit: No Cold of Flu in the past 2 weeks, No New Medical Problems, No Changes in Medication and No Patient answered all questions The History & Physical has been completed within 30 days and I have reviewed it.: Yes Section B Chief Complaint: Carpal tunnel syndrome, right upper limb Allergies: Allergies Allergy/AdvReac Type Severity Reaction Status Date / Time codeine AdvReac Intermediate vertigo, Verified 09/04/23 09:28 nausea Plan I have reviewed the history and physical and performed a pertinent physical examination on my patient. No changes have occurred unless specified. Time Spent With Patient Time: Total time managing care of this patient today ____ minutes.
--- NOTE | 2023-10-23 14:34 | W.PM.OPN ---
Operative Note Operative Note Date of Service: 10/23/23 Narrative: Preop diagnosis: 1. right Carpal tunnel syndrome Postop diagnosis: same Procedure: 1. right Carpal tunnel release Surgeon: Yesica Enriquez MD Anesthesia: local block using 1% lidocaine with epinephrine Findings: Thickened transverse carpal ligament. EBL: Less than 5 mL Specimens: None Complications: None Disposition: Brought to recovery room in stable condition Plan: Follow-up for 10-14 days for wound check and suture removal Indications: The patient is 68 years old, with right carpal tunnel syndrome that has been unresponsive to nonoperative management. The risks and benefits of operative treatment including but not limited to risk of damage to blood vessels, nerves, tendons, infection, persistent pain, persistent symptoms, or possible need for additional surgery were discussed with the patient and the patient wishes to proceed with surgery. Procedure: Once consent was obtained a local block was performed using a combination of 1% lidocaine with epinephrine. The patient was then brought back to the operating suite and placed on the operative table in supine position. The right upper extremity was prepped and draped in a standard surgical fashion. Once assured that we had a good block, a 2.0 cm longitudinal incision was made centered over the carpal tunnel. The incision was made through the skin to the subcutaneous tissues using a #15 blade. Dissection was made down to the level of the transverse carpal ligament with care being taken to protect the palmar cutaneous nerve. Once the transverse carpal ligament was clearly visualized, a longitudinal incision was made in the transverse carpal ligament 1st using a #15 blade, then using tenotomy scissors under direct visualization. Care was taken to look for and protect the motor branch of the median nerve when seen in this area. Once satisfied with our carpal tunnel release the wound was copiously irrigated with normal saline and hemostasis was obtained with a brief period of local pressure. The skin edges were reapproximated with some 5.0 nylon suture material and a sterile dressing was applied. The patient appears to have tolerated the procedure well and with no complications. All digits were well vascularized at the conclusion of the case.
[2023-10-23 14:42] VITALS: BP 123/64; PULSE 64; RESP 18
== END 2023-10-23 14:44 | disposition home or self-care (01) ==
PROVIDERS: PCP General Practice; Visit Provider Orthopaedic Surgery
PROC: (CPT 64721; principal; 2023-10-23 11:30)
DX: G56.01 Carpal tunnel syndrome, right upper limb (principal); R20.0 Anesthesia of skin; R20.2 Paresthesia of skin; I10 Essential (primary) hypertension; E78.00 Pure hypercholesterolemia, unspecified; E11.9 Type 2 diabetes mellitus without complications; G47.33 Obstructive sleep apnea (adult) (pediatric); Z88.5 Allergy status to narcotic agent; Z98.1 Arthrodesis status; Z98.890 Other specified postprocedural states; F17.210 Nicotine dependence, cigarettes, uncomplicated
CPT/HCPCS: 64721; J0171

== ENCOUNTER → 2023-10-23 12:28 | Outpatient (BNV) | payer OTHER, SELFPAY | PROVIDERS: PCP General Practice; Visit Provider Orthopaedic Surgery | DX: G56.01 Carpal tunnel syndrome, right upper limb (principal) | CPT/HCPCS: 64721 ==

== ENCOUNTER 2023-11-04 10:34 | Outpatient (AMB) | payer OTHER, SELFPAY ==
--- NOTE | 2023-11-04 10:37 | A.OFFVIS_ITS ---
Intake Intake Visit Reasons: PO R CTR 10/23/23 AR Intake Note: Sun is a 68 year old female who presents today for her PO Right CTR 10/23/[address] Enriquez. States numbness and tingling has resolved . Sutures removed and steri strips applied. She presented today with bandage intact, she has been doing dressing changes at home, states that she has not been using the hand. Allergies codeine Adverse Reaction (Intermediate, Verified 09/04/23 09:28) vertigo, nausea HPI PO R CTR 10/23/23 AR HPI Details Stephanie is a 68 year old right hand dominant woman who presents S/P right carpal tunnel release, DOS: 10/23/23. She says she is doing well and her sensation has improved and now feels normal. She does have some soreness in her palm and around her incision, and wants to know if this is normal. She reports some intermittent numbness in her left hand, but says this is occasional. [facility] Medical History Bleeding hemorrhoids Spondylosis of lumbar spine GERD (gastroesophageal reflux disease) Diabetes High cholesterol HTN (hypertension) Back pain, chronic Migraines Surgical History History of hemorrhoidectomy (~04/01/23) History of esophagogastroduodenoscopy (EGD) Hx of fusion of cervical spine Hx of colonoscopy Hx of cholecystectomy Hx of tubal ligation Family History Father History of heart attack Mother Hx of type 1 diabetes mellitus Family history of high blood pressure Social History Alcohol intake: never Patient Tobacco Use Status: Current everyday Tobacco user Tobacco use type: Cigarette Cigarette Packs Per Day: 0.5 Cigarettes Per Day: 10 Years Smoked: 45 Current occupational status: employed 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 Sutures removed and Steri-Strips applied She can make a fist and extend all her digits Sensation is improved and normal to the tips of all digits of her right hand Cap refill is brisk Psych Appearance: grossly normal Affect: normal affect Attitude: cooperative Assessment & Plan Assessment & Plan (1) Diabetes: Code(s): E11.9 - Type 2 diabetes mellitus without complications (2) Numbness and tingling in left hand: Code(s): R20.0 - Anesthesia of skin; R20.2 - Paresthesia of skin (3) S/P carpal tunnel release: Code(s): Z98.890 - Other specified postprocedural states Plan Assessment & Plan: 1. Right Carpal tunnel syndrome, S/P release DOS: 10/23/23 Pre-operative symptoms intermittent, but daily, worse at night Now with normal sensation The patient appears to be doing well post-operatively I educated her about the post-operative course I explained the signs and symptoms of infection, if the patient develops any new or worsening erythema, drainage, pain, or warmth they should contact the clinic or attend the ED. I discussed activity modifications, she is to lift nothing heavier than a cellphone for the next two weeks She will perform gentle ROM exercises at home She should avoid any underwater activities for the next 5 days She should gently massage about the incision site to reduce the risk of hypersensitivity She can follow up prn 2. Left hand numbness In the median nerve distribution Symptoms intermittent and occasional Her NCS was performed on her right-side only She will be mindful for how often she feels numbness in her left hand. I educated her about the risks of delaying an appointment when her symptoms begin to occur daily. She can follow up to discuss a possible NCS in the future. Scribed for Yesica Enriquez MD by Reno Ibrahim, biomedical equipment support specialist, on 11/04/23 at 10:55 AM, EST. Coding Level of Care Code Global (20817) Diagnoses Diabetes E11.9 Numbness and tingling in left hand R20.0; R20.2 S/P carpal tunnel release Z98.890
== END 2023-11-04 11:58 | disposition home or self-care (01) ==
PROVIDERS: PCP General Practice; Visit Provider Orthopaedic Surgery
DX: E11.9 Type 2 diabetes mellitus without complications (principal); R20.0 Anesthesia of skin; R20.2 Paresthesia of skin; Z98.890 Other specified postprocedural states
CPT/HCPCS: 99024

== ENCOUNTER → 2023-11-04 10:34 | Outpatient (BNVA) | payer OTHER, SELFPAY | PROVIDERS: PCP General Practice; Visit Provider Orthopaedic Surgery | DX: Z09 Encounter for follow-up examination after completed treatment for conditions other than malignant neoplasm (principal); E11.9 Type 2 diabetes mellitus without complications; Z86.69 Personal history of other diseases of the nervous system and sense organs | CPT/HCPCS: 99212 ==

== ENCOUNTER 2023-11-24 12:13 | Outpatient (REF) | payer OTHER, SELFPAY ==
[2023-11-24 14:06] LABS: Cholesterol 103 mg/dL (<200); HDL Cholesterol 29 mg/dL (>40); LDL Cholesterol Calculated 37 mg/dL (<100); Triglycerides 186 mg/dL (<150)
== END 2023-11-24 12:14 | disposition home or self-care (01) ==
LOC: HO.HHCL 12:13
PROVIDERS: Visit Provider General Practice
DX: E11.9 Type 2 diabetes mellitus without complications (principal)
CPT/HCPCS: 36415; 80061

== ENCOUNTER 2023-12-02 09:35 | Outpatient (AMB) | payer OTHER, SELFPAY ==
--- NOTE | 2023-12-02 09:37 | A.OFFVIS_ITS ---
Intake Vital Signs 12/02/23 09:43 Height 5 ft 1 in Weight 153 lb BMI 28.9 Intake Visit Reasons: PO R CTR 10/23/23 AR Intake Note: Sun is a 68 year old female who presents today for her PO Right CTR 10/23/[address] Enriquez. States still having continuos pain where the incision site was. She starts that her pain has gotten worse about a month ago. Patient has been taking Tylenol every 4 hours due to the pain which gives her mild relief. Allergies codeine Adverse Reaction (Intermediate, Verified 09/04/23 09:28) vertigo, nausea HPI PO R CTR 10/23/23 AR HPI Details Stephanie is a 68 year old right hand dominant woman who presents S/P right carpal tunnel release, DOS: 10/23/23. She complains of worsening pain in her palm & near her incision site, which she says has been increasing since her last appointment. She says she has been taking Tylenol several times a day, with mild relief. At her last appointment she said her right hand numbness was resolved and her sensation was normal. She now says her sensation is improved, but she is got pain in the area of the incision site. She reports some intermittent numbness in her left hand, but says this is occasional. [facility] Medical History Bleeding hemorrhoids Spondylosis of lumbar spine GERD (gastroesophageal reflux disease) Diabetes High cholesterol HTN (hypertension) Back pain, chronic Migraines Surgical History History of hemorrhoidectomy (~04/01/23) History of esophagogastroduodenoscopy (EGD) Hx of fusion of cervical spine Hx of colonoscopy Hx of cholecystectomy Hx of tubal ligation Family History Father History of heart attack Mother Hx of type 1 diabetes mellitus Family history of high blood pressure Social History Alcohol intake: never Patient Tobacco Use Status: Current everyday Tobacco user Tobacco use type: Cigarette Cigarette Packs Per Day: 0.5 Cigarettes Per Day: 10 Years Smoked: 45 Current occupational status: employed 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 Normal post-op swelling at this time She can make a fist and extend all her digits Smooth wrist ROM Sensation is improved and normal to the tips of all digits of her right hand Good APB muscle belly firing She has some hypersensitivity over her surgical site Mild pillar tenderness Cap refill is brisk Psych Appearance: grossly normal Affect: normal affect Attitude: cooperative Assessment & Plan Assessment & Plan (1) Numbness and tingling in left hand: Code(s): R20.0 - Anesthesia of skin; R20.2 - Paresthesia of skin (2) S/P carpal tunnel release: Code(s): Z98.890 - Other specified postprocedural states (3) Diabetes: Code(s): E11.9 - Type 2 diabetes mellitus without complications Plan Assessment & Plan: 1. Right Carpal tunnel syndrome, S/P release DOS: 10/23/23 Pre-operative symptoms intermittent, but daily, worse at night Now with normal sensation The patient appears to be doing well post-operatively I educated her about the post-operative course I discussed activity modifications, she will work on massaging about her incision to normalize her sensation, and she will begin to use her right hand for lightweight daily activities I ordered OT hand therapy to work on desensitization & normalizing hand function She will perform gentle ROM exercises at home She will follow up in 4-6 weeks. She may cancel this if she is doing well. 2. Left hand numbness In the median nerve distribution Symptoms intermittent and occasional Her NCS was performed on her right-side only She will be mindful for how often she feels numbness in her left hand. I educated her about the risks of delaying an appointment when her symptoms begin to occur daily. She can follow up to discuss a possible NCS in the future. Scribed for Yesica Enriquez MD by Reno Ibrahim, product manager medical device, on 12/02/23 at 10:00 AM, EST. Orders: Orders OT Evaluation and Treatment Today G56.01 - Carpal tunnel syndrome, right upper limb, Z98.890 - Other specified postprocedural states Coding Level of Care Code Global (54045) Diagnoses Numbness and tingling in left hand R20.0; R20.2 S/P carpal tunnel release Z98.890 Diabetes E11.9
[2023-12-02 09:43] VITALS: BMI 28.9
== END 2023-12-02 10:15 | disposition home or self-care (01) ==
PROVIDERS: PCP General Practice; Visit Provider Physician Assistant
DX: G56.01 Carpal tunnel syndrome, right upper limb (principal); R20.0 Anesthesia of skin; R20.2 Paresthesia of skin; E11.9 Type 2 diabetes mellitus without complications
CPT/HCPCS: 99024

== ENCOUNTER → 2023-12-02 09:35 | Outpatient (BNVA) | payer OTHER, SELFPAY | PROVIDERS: PCP General Practice; Visit Provider Physician Assistant | DX: R20.0 Anesthesia of skin (principal); R20.2 Paresthesia of skin; E11.9 Type 2 diabetes mellitus without complications; Z98.890 Other specified postprocedural states | CPT/HCPCS: 99212 ==

== ENCOUNTER 2023-12-30 09:58 | Outpatient (AMB) | payer OTHER, SELFPAY ==
[2023-12-30 10:05] VITALS: BP 112/72; PULSE 72; O2SAT 99; BMI 28.3
--- NOTE | 2023-12-30 10:05 | MHC.OFFVIS ---
Intake Vital Signs 12/30/23 10:05 Height 5 ft 1 in Weight 150 lb BMI 28.3 BP 112/72 Blood Pressure Location Rt brachial Position Sitting Pulse 72 Pulse Source Pulse Oximeter Pulse Oximetry (%) 99 Oxygen Delivery Method Room Air Intake Visit Reasons: 4 mo f/u -Conf Intake Note: Patient presents for 4 month follow up. 'no issues or concerns, everything is fine. I just need refills. Allergies codeine Adverse Reaction (Intermediate, Verified 12/30/23 10:08) vertigo, nausea Medication List - Last Reconciled 12/30/23 by MAURO Larios acetaminophen ER (8 Hour Pain Reliever) 650 mg PO Q8H PRN alcohol swabs (BD Alcohol Swabs) 1 pad topical BID atenolol 75 mg PO DAILY atogepant (Qulipta) 60 mg PO DAILY 30 days atorvastatin 40 mg PO BEDTIME bisacodyl (Dulcolax (bisacodyl)) 10 mg (2 x 5 mg) PO BEDTIME 30 days caffeine 200 mg PO DAILY 30 days cholecalciferol (vitamin D3) (Vitamin D3) 25 mcg PO DAILY clonazepam 0.5 mg PO BEDTIME 30 days dapagliflozin propanediol (Farxiga) 5 mg PO DAILY diclofenac potassium 50 mg PO TID PRN 7 days docusate sodium 100 mg PO BID PRN dulaglutide (Trulicity) 1.5 mg subcut QWEEK galcanezumab-gnlm (Emgality Pen) 120 mg subcut ONCE 30 days glipizide ER 20 mg PO DAILY hydrochlorothiazide 25 mg PO DAILY hydrocodone-acetaminophen 5-325 mg 1 tab PO Q4-6H PRN hydrocortisone 2.5% (Proctosol HC) 1 appl [place] BID PRN lancets (FreeStyle Lancets) As directed lisinopril 20 mg PO DAILY melatonin 5 mg PO BEDTIME menthol-zinc oxide 0.44-20.6 % (Calmoseptine) 1 appl topical QID PRN menthol-zinc oxide 0.44-20.6 % (Calmoseptine) 1 appl topical TID PRN metoclopramide HCl (Reglan) 5 - 10 mg (1 - 2 x 5 mg) PO Q4-6H PRN 7 days MDD 4 rizatriptan 5 - 10 mg (0.5 - 1 x 10 mg) PO Q2H PRN 21 days sumatriptan succinate 50 - 100 mg orally at onset of headache, may repeat in 2 hrs PRN; max 2 tabs per day or 4 tabs/week (may take with Ibuprofen) 30 days zolpidem 5 - 10 mg (1 - 2 x 5 mg) PO BEDTIME PRN 7 days HPI HPI Comments History of Present Illness Details 68-yr-old female presents for f/u visit. Pt underwent right carpal tunnel release 2 months ago- and is still recovering, doing PT. She states her migraines are better controlled. In the past month, she has had tension headaches but no migraine attacks. She requests refill on Diclofenac- is very helpful. Still not sleeping well. Restless legs are stable once she falls asleep. Baseline headache characteristics: Severe, Throbbing pain usually in bilateral temples, sometimes the top of her head or mid-frontal a/w Photophobia, phonophobia, nausea, worsening external dizziness, brain fog, worsening blurry vision, neck tightness, top of head allodynia. [facility] Medical History (Updated 11/04/23 @ 10:58 by Reno Ibrahim) Bleeding hemorrhoids Spondylosis of lumbar spine GERD (gastroesophageal reflux disease) Diabetes High cholesterol HTN (hypertension) Back pain, chronic Migraines Surgical History History of carpal tunnel release History of hemorrhoidectomy (~04/01/23) History of esophagogastroduodenoscopy (EGD) Hx of fusion of cervical spine Hx of colonoscopy Hx of cholecystectomy Hx of tubal ligation Family History Father History of heart attack Mother Hx of type 1 diabetes mellitus Family history of high blood pressure Social History Alcohol intake: never Patient Tobacco Use Status: Current everyday Tobacco user Tobacco use type: Cigarette Cigarette Packs Per Day: 0.5 Cigarettes Per Day: 10 Years Smoked: 45 Current occupational status: employed 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 Physical Exam Vital Signs: Last Vital Signs Pulse 72 12/30/23 10:05 BP 112/72 12/30/23 10:05 Pulse Ox 99 12/30/23 10:05 Oxygen Delivery Method Room Air 12/30/23 10:05 BMI result Body Mass Index 28.3 Const General: cooperative and no acute distress Orientation/consciousness: patient oriented x3 Resp Effort & Inspection: normal respiratory effort and able to speak in complete sentences Neuro General: patient oriented x3 Cranial nerves: Yes CN's II-XII intact bilaterally Cognition (Neuro): normal cognition Psych Appearance: grossly normal Mental Status: mental status grossly normal Speech and movement: Normal speech and movement present Affect: normal affect Attitude: cooperative Assessment & Plan Assessment & Plan (1) Chronic migraine without aura: Comment: ? hypnic headache component Code(s): G43.709 - Chronic migraine without aura, not intractable, without status migrainosus (2) Sleep difficulties: Code(s): G47.9 - Sleep disorder, unspecified (3) Restless leg syndrome: Code(s): G25.81 - Restless legs syndrome Plan For overall headache management: Continue optimizing good self-care, including but not limited to maintaining a healthy diet,? adequate fluid intake, adequate sleep, and engaging in regular physical activity. ? For acute headache treatment: BP is still normotensive. Continue Diclofenac 50mg bid prn. Previous acute migraine medication trials: Nurtec- ineffective, Ubrelvy- ineffective. Fioricet- ineffective. Sumatriptan- ineffective. Acute migraine medication contraindications: none at this time. ? For headache prevention medication: Continue Qulipta (atogepant) 60 mg po qhs- monitor for s/e of constipation. Continue Emgality 120mg sc monthly. Pt is having good clinical effect from concomitant use of Emgality and Qulipta. Pt is currently in Atenolol for HTN. Previous migraine prevention medication trials: Gabapentin- ineffective, Amitriptyline- ineffective, Topiramate- ineffective, Botox x's 2 tx sessions- ineffective, bi-temporal trigger point injections- ineffective. Magnesium 400mg qhs- not tolerated. Riboflavin- ineffective. Baclofen 10-20mg qhs- not tolerated. Riboflavin 400mg- inefefctive Migraine prevention medication contraindications: Aimovig d/t h/o RLS and constipation. Future considerations- Caffeine qhs, [place]. ? For sleep and restless leg syndrome: Clonazepam 0.5mg po qhs. Previous trials- Amitriptyline 10-20mg qhs- did not help sleep or headaches. Pt would not be a candidate for Inspire, as her last sleep study showed mild SHUN. Future considerations- mandibular device. ? f/u in 4 months or sooner any new or worsening s/s. Medications: Changed From diclofenac potassium 50 mg PO TID 7 days PRN 21 tabs 1RF headache To diclofenac potassium 50 mg PO BID 30 days PRN 60 tabs 1RF headache Refilled clonazepam 0.5 mg PO BEDTIME 30 days 30 tabs 3RF G25.81 - Restless legs syndrome Coding Level of Care Code Est Pt Level 4 (46319) Diagnoses Chronic migraine without aura G43.709 Sleep difficulties G47.9 Restless leg syndrome G25.81
== END 2023-12-30 10:58 | disposition home or self-care (01) ==
PROVIDERS: PCP General Practice; Visit Provider Nurse Practitioner Family
DX: G43.709 Chronic migraine without aura, not intractable, without status migrainosus (principal); G47.9 Sleep disorder, unspecified; G25.81 Restless legs syndrome
CPT/HCPCS: 99214

== ENCOUNTER → 2023-12-30 09:58 | Outpatient (BNVA) | payer OTHER, SELFPAY | PROVIDERS: PCP General Practice; Visit Provider Nurse Practitioner Family | DX: G43.709 Chronic migraine without aura, not intractable, without status migrainosus (principal); G47.9 Sleep disorder, unspecified; G25.81 Restless legs syndrome | CPT/HCPCS: 99212 ==

== ENCOUNTER 2024-01-05 10:00 | Outpatient (RCR) | payer OTHER, SELFPAY ==
--- NOTE | 2023-12-10 10:01 | MHC.OT.EP ---
[address] [phone] Occupational Therapy Plan of Care Patient Name: Stephanie Luz Date of Evaluation: 12/10/23 Diagnosis: R CTR Pain Location: 6/10 right palm at incision site, radiates up thenar and hypothenar tissue, pinching and stabbing 10/10 sharp, stabbing w/ everyday use Pain Score: 6 Pain Scale Used: Aggravating Factors: General use, gripping, lifting Alleviating Factors: Tylenol Q4 Assessment: 68 yo female presents s/p right CTR 10/23/23 w/ Dr Enriquez. On last follow-up appt, she reporting increased wrist pain at incision site. On assessment today, wrist range is grossly WFL and she reports relief in median nerve symptoms, but she does have localized edema over incision site into medial palm. 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 She has difficulty w/ most daily activities, worsening pain w/ any lifting or grasping. Incision site is well healed but tender and pt reports high sensitivity. She will benefit from cont'd hand therapy services to address pain, inflammation and desensitization. 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 Thank you once again for your referral.
--- NOTE | 2024-01-06 11:27 | MHC.OT.DC ---
[address] [phone] F: [phone] Occupational Therapy Discharge Note Patient Name: Stephanie Luz Provider: Yesica Enriquez MD Diagnosis: R CTR Date of Surgery: 10/23/23 Date of Evaluation: 12/10/23 Date of Discharge: 01/05/24 Treatments to Date: 8 Discharge Status: Independent with HEP Discharge Summary: Stephanie is about 2 months post op right carpal tunnel release. She initially came w/ moderate edema in right hand with persistant pain and hypersensitivity. We have complete courses of therapy w/ focus on range, functional strengthening and desensitization techniques, but she continues to report moderate pain and sensitivity over incision, although noting small improvements. She is still avoiding some more forceful tasks around the house when I do it, I can do it, otherwise I don't , and has low but functional trustee of estate strength at 25lb. She is Ind w/ home program for soft tissue massage/mobilization, scar management, AROM and desensitization techniques w/ goal of cont'd improvement over time. Electronically Signed By: Griselda Veliz OTR/L CHT Please Sign and return to therapist, thank you for your referral.
== END 2024-01-06 11:31 | disposition home or self-care (01) ==
LOC: HO.OT 10:00
PROVIDERS: PCP General Practice; Visit Provider Orthopaedic Surgery
DX: G56.01 Carpal tunnel syndrome, right upper limb (principal); Z98.890 Other specified postprocedural states
CPT/HCPCS: 29125; 97014; 97035; 97110; 97140; 97165; 97760

== ENCOUNTER 2024-01-05 10:36 | Outpatient (AMB) | payer OTHER, SELFPAY ==
[2024-01-05 11:12] VITALS: BP 120/70; PULSE 65; BMI 28.3
--- NOTE | 2024-01-05 11:12 | MHC.OFFVIS ---
Intake Vital Signs 01/05/24 11:12 Height 5 ft 1 in Weight 149 lb 14.629 oz BMI 28.3 BP 120/70 Blood Pressure Location Lt brachial Position Sitting Pulse 65 Pulse Source Pulse Oximeter Intake Visit Reasons: 6 mth fu Intake Note: pt its here for her 6 mnth f/up pt states that she its doing fine. Sprayer Leather Required: No Accompanied by: Self / Same As Patient Allergies codeine Adverse Reaction (Intermediate, Verified 12/30/23 10:08) vertigo, nausea Medication List - Last Reconciled 01/05/24 by Kaushik Horn MD acetaminophen ER (8 Hour Pain Reliever) 650 mg PO Q8H PRN alcohol swabs (BD Alcohol Swabs) 1 pad topical BID atenolol 75 mg PO DAILY atogepant (Qulipta) 60 mg PO DAILY 30 days atorvastatin 40 mg PO BEDTIME bisacodyl (Dulcolax (bisacodyl)) 10 mg (2 x 5 mg) PO BEDTIME 30 days cholecalciferol (vitamin D3) (Vitamin D3) 25 mcg PO DAILY clonazepam 0.5 mg PO BEDTIME 30 days dapagliflozin propanediol (Farxiga) 5 mg PO DAILY diclofenac potassium 50 mg PO BID PRN 30 days docusate sodium 100 mg PO BID PRN dulaglutide (Trulicity) 1.5 mg subcut QWEEK galcanezumab-gnlm (Emgality Pen) 120 mg subcut ONCE 30 days glipizide ER 20 mg PO DAILY hydrochlorothiazide 25 mg PO DAILY lancets (FreeStyle Lancets) As directed lisinopril 20 mg PO DAILY melatonin 5 mg PO BEDTIME HPI HPI Comments History of Present Illness Details Pleasant 68-year-old female here for follow-up. Previous echocardiography has shown normal biventricular systolic function. There was mildly increased left ventricular wall thickness and diastolic function was indeterminate. Left atrium was moderately dilated. She continues to be asymptomatic. No exertional chest pain or shortness of breath. No symptoms or signs of heart failure. Taking medications regularly and blood pressure control is good. Her sugar control is also excellent her last A1c was 6. She returns for follow-up today. She has been diagnosed with sleep apnea and will be starting the CPAP mask. Blood pressure control is good. Denying any new symptoms. 06/30/2023: She returns for follow-up. She is denying any symptoms. 01/05/2024: She returns for follow-up. No chest pain or shortness of breath. Clinically stable. Blood pressure is well controlled. Last lipid panel triglycerides 186, total cholesterol 103, LDL 57 and HDL 29. [facility] Medical History (Updated 11/04/23 @ 10:58 by Reno Ibrahim) Bleeding hemorrhoids Spondylosis of lumbar spine GERD (gastroesophageal reflux disease) Diabetes High cholesterol HTN (hypertension) Back pain, chronic Migraines Surgical History History of carpal tunnel release History of hemorrhoidectomy (~04/01/23) History of esophagogastroduodenoscopy (EGD) Hx of fusion of cervical spine Hx of colonoscopy Hx of cholecystectomy Hx of tubal ligation Family History Father History of heart attack Mother Hx of type 1 diabetes mellitus Family history of high blood pressure Social History Alcohol intake: never Patient Tobacco Use Status: Current everyday Tobacco user Tobacco use type: Cigarette Cigarette Packs Per Day: 0.5 Cigarettes Per Day: 10 Years Smoked: 45 Current occupational status: employed 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 Review of Systems Const Denies chills, Denies fatigue, Denies fever(s), Denies frequent falls, Denies weakness, Denies weight gain and Denies weight loss ENT Denies dizziness Card Denies chest pain, Denies leg edema, Denies lightheadedness, Denies palpitations, Denies dyspnea and Denies dyspnea on exertion Resp Denies cough, Denies dyspnea and Denies dyspnea on exertion GI Denies hematochezia Musc Denies abnormal gait, Denies muscle weakness, Denies numbness, Denies radiating pain into limb and Denies tingling Neuro Denies abnormal gait, Denies dizziness, Denies frequent falls, Denies numbness, Denies tingling and Denies weakness Endo Denies fatigue and Denies palpitations Physical Exam Vital Signs: BMI result Body Mass Index 28.3 GENERAL APPEARANCE: in no acute distress, pleasant. NECK: no carotid bruit, no jugular venous distention. SKIN: no suspicious lesions, warm and dry. HEART: no murmurs, regular rate and rhythm. LUNGS: clear to auscultation bilaterally. ABDOMEN: soft, nontender. EXTREMITIES: no edema. PERIPHERAL PULSES: equal. NEUROLOGIC: No gross deficits, AAO X 3 Assessment & Plan Assessment & Plan (1) HTN (hypertension): Code(s): I10 - Essential (primary) hypertension (2) High cholesterol: Code(s): E78.00 - Pure hypercholesterolemia, unspecified Plan Pleasant 68 year female who is here for follow-up. She has hypertension. Blood pressure is well controlled currently on lisinopril 20 mg, hydrochlorothiazide 25 mg and atenolol 75 mg daily. She is on atorvastatin 40 mg and LDL cholesterol is 37. Triglycerides are mildly elevated which should be managed with diet and exercise. Clinically doing well and she was given the option to see us p.r.n. but she wishes to see us once a year. We will arrange follow-up in 1 year. Thank you for allowing me to participate in the care of your patient. Please feel free to contact me if you have any questions. Coding Level of Care Code Est Pt Level 3 (01852) Diagnoses HTN (hypertension) I10 High cholesterol E78.00
== END 2024-01-05 11:37 | disposition home or self-care (01) ==
PROVIDERS: PCP General Practice; Visit Provider Internal Medicine Cardiovascular Disease
DX: I10 Essential (primary) hypertension (principal); E78.00 Pure hypercholesterolemia, unspecified
CPT/HCPCS: 99213

== ENCOUNTER → 2024-01-05 11:08 | Outpatient (BNVA) | payer OTHER, SELFPAY | PROVIDERS: PCP General Practice; Visit Provider Internal Medicine Cardiovascular Disease | DX: I10 Essential (primary) hypertension (principal); E78.00 Pure hypercholesterolemia, unspecified | CPT/HCPCS: 99212 ==

== ENCOUNTER 2024-01-06 09:40 | Outpatient (AMB) | payer OTHER, SELFPAY ==
[2024-01-06 09:46] VITALS: BMI 28.2
--- NOTE | 2024-01-06 09:46 | MHC.OFFVIS ---
Intake Vital Signs 01/06/24 09:46 Height 5 ft 1 in Weight 149 lb BMI 28.2 Intake Visit Reasons: PO R CTR 10/23/23 AR-follow up Intake Note: Sun is a 68 year old female who presents today for her PO Right CTR 10/23/[address] Enriquez. States she has attended O.T and is still experiencing pain and tenderness by her incision. States she is not happy. Allergies codeine Adverse Reaction (Intermediate, Verified 01/06/24 09:47) vertigo, nausea HPI PO R CTR 10/23/23 AR-follow up HPI Details Stephanie is a 68 year old right hand dominant woman who returns S/P right carpal tunnel release, DOS: 10/23/23. She continues to complain of pain and sensitivity about her incision. She says she is not happy she continues to have pain. She was told she has fluid in her hand and she is unable to strategic partnership representative objects. She reports having some tingling in her hand the other day, but overall her sensation has improved which she is happy about. She has completed her course of OT yesterday, and has been performing her exercises at home. She reports some intermittent numbness in her left hand, but says this is occasional. She follows with Pain Management for shoulder OA, impingement, and chronic migraines. [facility] Medical History (Updated 01/06/24 @ 10:11 by Reno Ibrahim) Bleeding hemorrhoids Spondylosis of lumbar spine GERD (gastroesophageal reflux disease) Diabetes High cholesterol HTN (hypertension) Back pain, chronic Migraines Surgical History History of carpal tunnel release History of hemorrhoidectomy (~04/01/23) History of esophagogastroduodenoscopy (EGD) Hx of fusion of cervical spine Hx of colonoscopy Hx of cholecystectomy Hx of tubal ligation Family History Father History of heart attack Mother Hx of type 1 diabetes mellitus Family history of high blood pressure Social History Alcohol intake: never Patient Tobacco Use Status: Current everyday Tobacco user Tobacco use type: Cigarette Cigarette Packs Per Day: 0.5 Cigarettes Per Day: 10 Years Smoked: 45 Current occupational status: employed 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 Good APB muscle belly firing Vascular: Cap refill brisk ROM: She can make a fist and extend all her digits Still has some mild swelling in her incision area She has some tenderness about the basal joint, including the dorsal aspect of the basal joint Mild tenderness both radial & ulnar to the incision/ pillar pain She also feels like she has some pain occasionally radiating up the palmaris tendon. Good range of motion of the thumb. Good wrist range of motion without evidence of discomfort. Psych Appearance: grossly normal Affect: normal affect Attitude: cooperative Assessment & Plan Assessment & Plan (1) Numbness and tingling in left hand: Code(s): R20.0 - Anesthesia of skin; R20.2 - Paresthesia of skin (2) S/P carpal tunnel release: Code(s): Z98.890 - Other specified postprocedural states (3) Diabetes: Code(s): E11.9 - Type 2 diabetes mellitus without complications (4) Postoperative pillar pain: Code(s): G89.18 - Other acute postprocedural pain Plan Assessment & Plan: 1. Right Carpal tunnel syndrome, S/P release DOS: 10/23/23 Pre-operative symptoms intermittent, but daily, worse at night Now with normal sensation The patient appears to be well-healed She continues to have some hypersensitivity & pillar pain on either side of her incision. She is now only about 2 months out from surgery. She does see Pain management for other pain issues She has completed her course of OT I discussed activity modification, she should continue to perform her exercises at home, massage about & across her incision site to improve her hypersensitivity, and use her hand for more light & medium weight activities She may also use hot or cold compresses prn I discussed the safe use of Tylenol for pain relief. I educated her about this issue. I do think it is likely that her symptoms will improve with time. She will follow up in 2 months to see how she is doing. If she her pain is more at the base of her right thumb at her next appointment, we will order an X-ray, attn thumb She may cancel this if she feels better. 2. Left hand numbness In the median nerve distribution Symptoms intermittent and occasional Her NCS was performed on her right-side only She will be mindful for how often she feels numbness in her left hand. I educated her about the risks of delaying an appointment when her symptoms begin to occur daily. She can follow up to discuss a possible NCS in the future. Scribed for Yesica Enriquez MD by Reno Ibrahim, medical terminologist, on 01/06/24 at 10:05 AM, EST. Coding Level of Care Code Global (18395) Diagnoses Numbness and tingling in left hand R20.0; R20.2 S/P carpal tunnel release Z98.890 Diabetes E11.9 Postoperative pillar pain G89.18
== END 2024-01-06 10:13 | disposition home or self-care (01) ==
PROVIDERS: PCP General Practice; Visit Provider Orthopaedic Surgery
DX: R20.0 Anesthesia of skin (principal); R20.2 Paresthesia of skin; Z98.890 Other specified postprocedural states; E11.9 Type 2 diabetes mellitus without complications; G89.18 Other acute postprocedural pain
CPT/HCPCS: 99024

== ENCOUNTER → 2024-01-06 09:40 | Outpatient (BNVA) | payer OTHER, SELFPAY | PROVIDERS: PCP General Practice; Visit Provider Orthopaedic Surgery | DX: R20.0 Anesthesia of skin (principal); G89.18 Other acute postprocedural pain; E11.9 Type 2 diabetes mellitus without complications; Z98.890 Other specified postprocedural states | CPT/HCPCS: 99212 ==

== ENCOUNTER 2024-03-02 10:18 | Outpatient (AMB) | payer OTHER, SELFPAY ==
[2024-03-02 10:37] VITALS: BMI 28.2
--- NOTE | 2024-03-02 10:37 | A.OFFVIS_ITS ---
Vital Signs 03/02/24 10:37 Height 5 ft 1 in Weight 149 lb BMI 28.2 Intake Visit Reasons: OV- RT CTR 10/23/23 AR-follow up Intake Note: Sun is a 68 year old female who presents today for her follow up visit for her S/P Right CTR 10/23/[address] Enriquez. States she cont's to have numbness and tingling, sharp pain by her incision and pain when lifting. Allergies codeine Adverse Reaction (Intermediate, Verified 03/02/24 11:13) vertigo, nausea HPI HPI OV- RT CTR 10/23/23 AR-follow up: Details: Stephanie is a 68 year old right hand dominant Diabetic woman who returns S/P right carpal tunnel release, DOS: 10/23/23. Her chief complaint is of pain about the basal joint of the right thumb. She also gets pain distal to and proximal to the incision and also radial and ulnar to the carpal tunnel incision but not so much over the incision itself. She has completed her second course of OT yesterday, and has been performing her exercises at home. She reports some intermittent numbness in her left hand, she says this has been increasing in frequency in the last few weeks. She also complains of pain at the base of her left thumb, which has worsened in the last few weeks. She follows with Pain Management for shoulder OA, impingement, and chronic migraines. [facility], [facility] Medical History (Updated 03/02/24 @ 11:48 by Reno Ibrahim) Bleeding hemorrhoids Spondylosis of lumbar spine GERD (gastroesophageal reflux disease) Diabetes High cholesterol HTN (hypertension) Back pain, chronic Migraines Surgical History History of carpal tunnel release History of hemorrhoidectomy (~04/01/23) History of esophagogastroduodenoscopy (EGD) Hx of fusion of cervical spine Hx of colonoscopy Hx of cholecystectomy Hx of tubal ligation Family History Father History of heart attack Mother Hx of type 1 diabetes mellitus Family history of high blood pressure Social History Alcohol intake: never Patient Tobacco Use Status: Current everyday Tobacco user Tobacco use type: Cigarette Cigarette Packs Per Day: 0.5 Cigarettes Per Day: 10 Years Smoked: 45 Current occupational status: employed 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 Good APB muscle belly firing Vascular: Cap refill brisk ROM: She can make a fist and extend all her digits No locking or catching She has some tenderness about the right basal joint, positive CMC grind Mild tenderness both radial & ulnar to the incision/ pillar pain, as well as just proximal and dorsal to the incision. Incision itself is well healed without any swelling or erythema. No thumb a1 sheela tenderness No 1st dorsal compartment tenderness Negative Lenny test Good range of motion of the thumb. Good wrist range of motion without evidence of discomfort. Regarding the left side: She is demonstrating that she has some discomfort about the basal joint on the left side. Tender over the basal joint. No tenderness over the 1st dorsal compartment Radiographs: 3 views of the right hand, with attention to the thumb, were taken and viewed by me today in clinic. they show no fractures or dislocations. There is only mild evidence of basal joint arthritis. Psych Appearance: grossly normal Affect: normal affect Attitude: cooperative Assessment & Plan Assessment & Plan (1) Postoperative pillar pain: Code(s): G89.18 - Other acute postprocedural pain Category: Medical (2) S/P carpal tunnel release: Code(s): Z98.890 - Other specified postprocedural states Category: Surgical (3) Numbness and tingling in left hand: Code(s): R20.0 - Anesthesia of skin; R20.2 - Paresthesia of skin Category: Medical (4) Diabetes: Code(s): E11.9 - Type 2 diabetes mellitus without complications Category: Medical (5) Arthritis of carpometacarpal (CMC) joint of right thumb: Code(s): M18.11 - Unilateral primary osteoarthritis of first carpometacarpal joint, right hand Category: Medical (6) Hand pain, right: Code(s): M79.641 - Pain in right hand Category: Medical (7) Pain of left thumb: Code(s): M79.645 - Pain in left finger(s) Category: Medical Plan Assessment & Plan: 1. Right hand pain 2. Right basal joint arthritis I educated her about this condition I discussed non-operative treatment options The patient would like to proceed with an injection today I discussed activity modification, they should limit or avoid any heavy or repetitive pinching or gripping activities Injection #1 : The risks and benefits of a steroid injection including but not limited to risk of damage to blood vessels, nerve, tendon, infection, skin bleaching, persistent or worsening pain, and failure to improve symptoms were discussed with the patient and they wish to proceed with the steroid injection. Once consent was obtained the skin over the dorsum of the Right basal joint was sterilely prepped. The joint was then injected with a combination of 1 mL of (40 mg/ml} Depo-Medrol and 1% plain Lidocaine. The patient appears to have tolerated the procedure well and with no complications. She had good early relief before leaving clinic today. She knows that they may not have another steroid injection into this joint for least 4 months. 3. Right Carpal tunnel syndrome, S/P release DOS: 10/23/23 Pre-operative symptoms intermittent, but daily, worse at night Now with normal sensation The patient appears to be well-healed She continues to have some hypersensitivity & pillar pain on either side of her incision, now ~4 months post-op. She does see Pain management for other pain issues She has completed her course of OT, with only some improvement I discussed activity modification, she should continue to perform her exercises at home, massage about & across her incision site to improve her hypersensitivity, and use her hand for more daily activities She may also use hot or cold compresses prn I discussed the safe use of Tylenol for pain relief. 4. Left hand numbness In the median nerve distribution Symptoms intermittent and increasing in frequency I ordered a NCS to assess for peripheral nerve compression She will follow up when completed for review 5. Left thumb pain Dorsal aspect of the basal joint No radiographs She was fitted for a comfort cool brace to wear with daily activity I discussed activity modification, they should limit or avoid any heavy or repetitive pinching or gripping activities Scribed for Yesica Enriquez MD by Reno Ibrahim, medical records administrator, on 01/06/24 at 10:05 AM, EST. Orders: Orders NE nerve conduction velocity Today R20.0 - Anesthesia of skin, R20.2 - Paresthesia of skin XR hand RT min 3V Today M79.641 - Pain in right hand Scribe Plan - Not visible on output: Scribed for Yesica Enriquez MD by Reno Ibrahim medical records administrator, on [ ] at [ ], EST. Coding Level of Care Code Est Pt Level 4 (91442) Diagnoses Postoperative pillar pain G89.18 S/P carpal tunnel release Z98.890 Numbness and tingling in left hand R20.0; R20.2 Diabetes E11.9 Arthritis of carpometacarpal (CMC) joint of right thumb M18.11 Hand pain, right M79.641 Pain of left thumb M79.645
== END 2024-03-02 12:00 | disposition home or self-care (01) ==
PROVIDERS: PCP General Practice; Visit Provider Orthopaedic Surgery
DX: G89.18 Other acute postprocedural pain (principal); M18.11 Unilateral primary osteoarthritis of first carpometacarpal joint, right hand; R20.2 Paresthesia of skin; G56.01 Carpal tunnel syndrome, right upper limb; R20.0 Anesthesia of skin; E11.9 Type 2 diabetes mellitus without complications; M79.641 Pain in right hand; M79.645 Pain in left finger(s)
CPT/HCPCS: 20600; 99214

== ENCOUNTER 2024-03-02 10:18 | Outpatient (REF) | payer OTHER, SELFPAY ==
--- NOTE | ~2024-03-02 | XR_ITS ---
EXAMINATION: XR HAND, RIGHT CLINICAL INFORMATION: Pain in the right hand COMPARISON: None available. TECHNIQUE: PA, lateral, and oblique views of the right hand. FINDINGS: There is mild osteoarthritis of the IP joint of thumb manifested by small marginal osteophytes. Small subchondral cysts about the second third and fourth PIP joints likely reflects a mild osteoarthritis. Surrounding bone and soft tissues unremarkable. No marginal erosions or abnormal soft tissue calcifications. XR/XR hand RT min 3V IMPRESSION: Mild osteoarthritis
== END 2024-03-02 10:19 | disposition home or self-care (01) ==
LOC: HO.HOSX 10:18
PROVIDERS: PCP General Practice; Visit Provider Orthopaedic Surgery
DX: M19.041 Primary osteoarthritis, right hand (principal)
CPT/HCPCS: 20600; 73130; 99212; J1010

== ENCOUNTER 2024-03-04 10:50 | Outpatient (AMB) | payer OTHER, SELFPAY ==
[2024-03-04 11:06] VITALS: BP 139/79; PULSE 63; BMI 28.7
--- NOTE | 2024-03-04 11:06 | MHC.OFFVIS ---
Vital Signs 03/04/24 11:06 Height 5 ft 1 in Weight 152 lb 1.903 oz BMI 28.7 BP 139/79 Blood Pressure Location Rt brachial Position Sitting Pulse 63 Intake Visit Reasons: 6 month follow up CIC Intake Note: Patient presents to in office 6 months follow up of CIC. CC: Patient states she gets bloated sometimes but she takes her medications and it helps. Patient needs refill on her medications including Linzess. Overhead Door Technician Required: No Accompanied by: Self / Same As Patient Allergies codeine Adverse Reaction (Intermediate, Verified 03/04/24 11:11) vertigo, nausea HPI HPI 6 month follow up CIC: Details: Assessment & Plan (1) Chronic idiopathic constipation: Code(s): K59.04 - Chronic idiopathic constipation Plan: She says that she continues to do very well and is happy with her GI regimen. She continues on her bisacodyl, docusate, and hydrocortisone cream with good control of her constipation and her hemorrhoids. She has no new health problems to report. Return office visit in 6 months. (2) Celiac disease: Code(s): K90.0 - Celiac disease Medications: New bisacodyl (Dulcolax (bisacodyl)) 10 mg (2 x 5 mg) PO BEDTIME 30 days 60 tabs 6RF K59.04 - Chronic idiopathic constipation Refilled docusate sodium 100 mg PO BID PRN 60 caps 6RF Constipation hydrocortisone 2.5% (Proctosol HC) 1 appl GA BID PRN 30 grams 3RF hemorrhoids Discontinued omeprazole Discontinued Reason: Doctor's Order 20 mg PO DAILY 30 days 30 caps 0RF TODAY'S VISIT She admits she has not been following her Celiac diet r/t rising cost of food. With this, she is having more GERD, and I will give her famotidine as this is better for prn use. She continues to do well on her Linzess and bisacodyl and colace. She is still struggling with her right hand after CTR with swelling and loss of strength. She received a cortisone injection. ROV 6 mos. [facility] Medical History (Updated 03/04/24 @ 11:32 by LEA Aguilera) GERD (gastroesophageal reflux disease) Bleeding hemorrhoids Spondylosis of lumbar spine Diabetes High cholesterol HTN (hypertension) Back pain, chronic Migraines Surgical History History of carpal tunnel release History of hemorrhoidectomy (~04/01/23) History of esophagogastroduodenoscopy (EGD) Hx of fusion of cervical spine Hx of colonoscopy Hx of cholecystectomy Hx of tubal ligation Family History Father History of heart attack Mother Hx of type 1 diabetes mellitus Family history of high blood pressure Social History Alcohol intake: never Patient Tobacco Use Status: Current everyday Tobacco user Tobacco use type: Cigarette Cigarette Packs Per Day: 0.5 Cigarettes Per Day: 10 Years Smoked: 45 Current occupational status: employed 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 [employer] Review of Systems Const Denies fatigue, Denies fever(s), Denies night sweats, Denies poor appetite and Denies weight loss ENT Reports Normal hearing present, Denies dental pain, Denies dysphagia, Denies hearing loss, Denies mouth pain, Denies odynophagia, Denies throat swelling, Denies tongue swelling and Reports other (Dentition adequate) Card Reports no additional complaints Resp Reports no additional complaints GI Details: Denies abdominal pain, Denies melena, Denies bloating, Denies hematochezia, Denies constipation, Denies GI cramping, Denies dysphagia, Denies excessive flatus, Denies early satiety, Reports dyspepsia, Denies heartburn, Reports diarrhea, Denies nausea, Denies odynophagia, Denies vomiting and Denies hematemesis Skin/Breast Denies pruritus, Denies lesions, Denies rash and Denies jaundice Neuro Reports Normal hearing present and Denies Abnormal speech present Endo Denies fatigue Aller/Immun Denies throat swelling and Denies tongue swelling Physical Exam Vital Signs: Last Vital Signs Pulse 63 03/04/24 11:06 BP 139/79 03/04/24 11:06 BMI result Body Mass Index 28.7 Const General: cooperative, no acute distress, well developed and well groomed Nutritional Appearance: average body habitus and well nourished Orientation/consciousness: oriented to person, oriented to place and oriented to time Limitations: No language barrier HEENT Head: Yes normocephalic and Yes atraumatic Eyes General: appearance normal, both eyes and all related structures Pupils: Equal, round and reactive pupils present Neck Neck: Yes normal visual inspection and Yes no lymphadenopathy Thyroid: Thyroid normal Resp Effort & Inspection: normal respiratory effort and able to speak in complete sentences Auscultation: clear to auscultation bilaterally Cardio Rate: regular rate Rhythm: regular rhythm Heart sounds: Normal, physiologic split S2 sound present Peripheral pulses: radial pulses present and posterior tibial pulses present GI Inspection: No distended and No Abdominal panniculus present Palpation (GI): Soft to palpation, nontender, no guarding, not rigid and No hepatosplenomegaly present Percussion: Yes normal to percussion Auscultation: normal bowel sounds Rectal Exam - Female: deferred Skin General skin exam: no rashes or lesions noted, turgor normal, skin not dry, no jaundice, No spider nevi and no striae Rashes: no rashes Nails: normal Neuro General: oriented to person, oriented to place and oriented to time Cranial nerves: Yes Equal, round and reactive pupils present and Yes Normal hearing present Speech: No Abnormal speech present Extrem Other: brace right wrist General: Yes normal to inspection, No clubbing, No cyanosis and No edema Psych Appearance: grossly normal and well kempt Mental Status: mental status grossly normal Speech and movement: Normal speech and movement present Affect: normal affect Attitude: cooperative Thought process: Normal thought process present and not confabulating Thought content: Normal thought content present Insight: Fair insight present (Psych) Judgement: Fair judgement present (Psych) Assessment & Plan Assessment & Plan (1) Chronic idiopathic constipation: Code(s): K59.04 - Chronic idiopathic constipation Category: Medical (2) Celiac disease: Code(s): K90.0 - Celiac disease Category: Medical (3) GERD (gastroesophageal reflux disease): Comment: Resolved with celiac diet Code(s): K21.9 - Gastro-esophageal reflux disease without esophagitis Category: Medical Plan She admits she has not been following her Celiac diet r/t rising cost of food. With this, she is having more GERD, and I will give her famotidine as this is better for prn use. She continues to do well on her Linzess and bisacodyl and colace. She is still struggling with her right hand after CTR with swelling and loss of strength. She received a cortisone injection. ROV 6 mos. Medications: New famotidine (Pepcid) 40 mg PO BEDTIME 30 tabs 6RF K21.9 - Gastro-esophageal reflux disease without esophagitis linaclotide (Linzess) Take first thing in the morning with a full glass of water. 145 mcg PO QAM 30 caps 3RF K58.1 - Irritable bowel syndrome with constipation Refilled docusate sodium 100 mg PO BID PRN 60 caps 6RF Constipation bisacodyl (Dulcolax (bisacodyl)) 10 mg (2 x 5 mg) PO BEDTIME 60 tabs 6RF 30 days K59.04 - Chronic idiopathic constipation Coding Level of Care Code Est Pt Level 3 (14175) Diagnoses Chronic idiopathic constipation K59.04 Celiac disease K90.0 GERD (gastroesophageal reflux disease) K21.9
== END 2024-03-04 11:38 | disposition home or self-care (01) ==
PROVIDERS: PCP General Practice; Visit Provider Nurse Practitioner
DX: K90.0 Celiac disease (principal); K21.9 Gastro-esophageal reflux disease without esophagitis
CPT/HCPCS: 99213

== ENCOUNTER → 2024-03-04 10:50 | Outpatient (BNVA) | payer OTHER, SELFPAY | PROVIDERS: PCP General Practice; Visit Provider Nurse Practitioner | DX: K59.04 Chronic idiopathic constipation (principal); K21.9 Gastro-esophageal reflux disease without esophagitis; K90.0 Celiac disease | CPT/HCPCS: 99212 ==

== ENCOUNTER 2024-03-09 07:55 | Outpatient (REF) | payer OTHER, SELFPAY ==
--- NOTE | 2024-03-09 07:58 | EMG_ITS ---
Left median and ulnar motor and sensory studies were performed. Left radial and median and lateral antecubital brachial sensory studies were performed and paraspinal muscles were tested with a needle. IMPRESSION: 1. [id number] left median neuropathy across carpal tunnel. 2. Mild left ulnar neuropathy across cubital tunnel. MD CRIS Fischer/LORA / [id number]
== END 2024-03-09 07:56 | disposition home or self-care (01) ==
LOC: HO.NEURO 07:55
PROVIDERS: PCP General Practice; Visit Provider Orthopaedic Surgery
DX: R20.0 Anesthesia of skin (principal); R20.2 Paresthesia of skin
CPT/HCPCS: 95886; 95910

== ENCOUNTER 2024-04-14 14:56 | Outpatient (AMB) | payer OTHER, SELFPAY ==
--- NOTE | 2024-04-14 15:09 | A.OFFVIS_ITS ---
Vital Signs 04/14/24 15:16 Height 5 ft 1 in Weight 148 lb BMI 28.0 BP 124/70 Blood Pressure Location Rt brachial Position Sitting Pulse 71 Pulse Source Pulse Oximeter Pulse Oximetry (%) 97 Oxygen Delivery Method Room Air Intake Visit Reasons: follow up-CONF Intake Note: Patient presents for f/u. Migraines are still the same and pressure every day. Allergies codeine Adverse Reaction (Intermediate, Verified 04/14/24 15:15) vertigo, nausea Medication List - Last Reconciled 04/14/24 by MAURO Larios acetaminophen ER (8 Hour Pain Reliever) 650 mg PO Q8H PRN alcohol swabs (BD Alcohol Swabs) 1 pad topical BID atenolol 75 mg PO DAILY atogepant (Qulipta) 60 mg PO DAILY 30 days atorvastatin 40 mg PO BEDTIME bisacodyl (Dulcolax (bisacodyl)) 10 mg (2 x 5 mg) PO BEDTIME 30 days cholecalciferol (vitamin D3) (Vitamin D3) 25 mcg PO DAILY clonazepam 0.5 mg PO BEDTIME 30 days dapagliflozin propanediol (Farxiga) 5 mg PO DAILY diclofenac potassium 50 mg PO BID PRN 30 days docusate sodium 100 mg PO BID PRN dulaglutide (Trulicity) 1.5 mg subcut QWEEK famotidine (Pepcid) 40 mg PO BEDTIME galcanezumab-gnlm (Emgality Pen) 120 mg subcut ONCE 30 days glipizide ER 20 mg PO DAILY hydrochlorothiazide 25 mg PO DAILY lancets (FreeStyle Lancets) As directed linaclotide (Linzess) 145 mcg PO QAM lisinopril 20 mg PO DAILY melatonin 5 mg PO BEDTIME HPI Comments Details: 68-yr-old female presents for f/u visit. Pt denies any significant interval medical changes. She states her migraines are better controlled. In the past month, she has had tension headaches but no migraine attacks. She is compliant w/ Qulipta. She is taking Diclofenac most mornings- is very helpful. Does have some GI reflux, discomfort. Her GI gave her famotidine but was not taking everyday as she thought this was just for heartburn- not upset stomach. Sleep is a little better- now able to sleep a bit earlier- 11pm-1am. Restless legs are stable once she falls asleep- the melatonin and clonazepam helps. She had a recent LUE EMG/NCS- d/t Left hand tingling moving up from hand/wrist up through the arm. Also has BLE tinlging at times as well. Has ortho f/u nect month. 03/09/24, LUE EMG/NCS: 1. Jpag-sl-omuafduy left median neuropathy across carpal tunnel. 2. Mild left ulnar neuropathy across cubital tunnel Baseline headache characteristics: Severe, Throbbing pain usually in bilateral temples, sometimes the top of her head or mid-frontal a/w Photophobia, phonophobia, nausea, worsening external dizziness, brain fog, worsening blurry vision, neck tightness, top of head allodynia. [facility] Medical History (Updated 04/14/24 @ 15:58 by MAURO Larios) GERD (gastroesophageal reflux disease) Bleeding hemorrhoids Spondylosis of lumbar spine Diabetes High cholesterol HTN (hypertension) Back pain, chronic Migraines Surgical History History of carpal tunnel release History of hemorrhoidectomy (~04/01/23) History of esophagogastroduodenoscopy (EGD) Hx of fusion of cervical spine Hx of colonoscopy Hx of cholecystectomy Hx of tubal ligation Family History Father History of heart attack Mother Hx of type 1 diabetes mellitus Family history of high blood pressure Social History Alcohol intake: never Patient Tobacco Use Status: Current everyday Tobacco user Tobacco use type: Cigarette Cigarette Packs Per Day: 0.5 Cigarettes Per Day: 10 Years Smoked: 45 Current occupational status: employed 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 [employer] Physical Exam Vital Signs: Last Vital Signs Pulse 71 04/14/24 15:16 BP 124/70 04/14/24 15:16 Pulse Ox 97 04/14/24 15:16 Oxygen Delivery Method Room Air 04/14/24 15:16 BMI result Body Mass Index 28.0 Const General: cooperative and no acute distress Orientation/consciousness: patient oriented x3 Resp Effort & Inspection: normal respiratory effort and able to speak in complete sentences Neuro General: patient oriented x3 Cranial nerves: Yes CN's II-XII intact bilaterally Cognition (Neuro): normal cognition Psych Appearance: grossly normal Mental Status: mental status grossly normal Speech and movement: Normal speech and movement present Affect: normal affect Attitude: cooperative Assessment & Plan Assessment & Plan (1) Chronic migraine without aura: Comment: ? hypnic headache component Code(s): G43.709 - Chronic migraine without aura, not intractable, without status migrainosus Category: Medical (2) SHUN (obstructive sleep apnea): Comment: AHI 6/hr Code(s): G47.33 - Obstructive sleep apnea (adult) (pediatric) Category: Medical (3) Restless leg syndrome: Code(s): G25.81 - Restless legs syndrome Category: Medical (4) Paresthesia: Code(s): R20.2 - Paresthesia of skin Category: Medical Plan For paresthesias: Check labs for common etiologies. F/u w/ ortho as scheduled For overall headache management: Continue optimizing good self-care, including but not limited to maintaining a healthy diet,? adequate fluid intake, adequate sleep, and engaging in regular physical activity. ? For acute headache treatment: BP is still normotensive. Continue Diclofenac 50mg bid prn. Previous acute migraine medication trials: Nurtec- ineffective, Ubrelvy- i neffective. Fioricet- ineffective. Sumatriptan- ineffective. Acute migraine medication contraindications: none at this time. ? For headache prevention medication: Continue Qulipta (atogepant) 60 mg po qhs- monitor for s/e of constipation. Continue Emgality 120mg sc monthly. Pt is having good clinical effect from concomitant use of Emgality and Qulipta. Pt is currently on Atenolol for HTN. Previous migraine prevention medication trials: Gabapentin- ineffective, Amitriptyline- ineffective, Topiramate- ineffective, Botox x's 2 tx sessions- ineffective, bi-temporal trigger point injections- ineffective. Magnesium 400mg qhs- not tolerated. Riboflavin- ineffective. Baclofen 10-20mg qhs- not tolerated. Riboflavin 400mg- inefefctive Migraine prevention medication contraindications: Aimovig d/t h/o RLS and constipation. Future considerations- Caffeine qhs, [place]. ? For sleep and restless leg syndrome: Clonazepam 0.5mg po qhs. Previous trials- Amitriptyline 10-20mg qhs- did not help sleep or headaches. Pt would not be a candidate for Inspire, as her last sleep study showed mild SHUN. Future considerations- mandibular device. ? f/u in 6 months or sooner any new or worsening s/s. Orders: Orders Vitamin B12 and Folate Today E11.9 - Type 2 diabetes mellitus without complications, G25.81 - Restless legs syndrome, I10 - Essential (primary) hypertension, K90.0 - Celiac disease, M19.90 - Unspecified osteoarthritis, unspecified site, R20.2 - Paresthesia of skin, R53.83 - Other fatigue IRON PROFILE Today E11.9 - Type 2 diabetes mellitus without complications, G25.81 - Restless legs syndrome, I10 - Essential (primary) hypertension, K90.0 - Celiac disease, M19.90 - Unspecified osteoarthritis, unspecified site, R20.2 - Paresthesia of skin, R53.83 - Other fatigue Creatine Kinase Total Today E11.9 - Type 2 diabetes mellitus without complications, G25.81 - Restless legs syndrome, I10 - Essential (primary) hypertension, K90.0 - Celiac disease, M19.90 - Unspecified osteoarthritis, unspecified site, R20.2 - Paresthesia of skin, R53.83 - Other fatigue Vitamin D 25-OH (D2 and D3) Today E11.9 - Type 2 diabetes mellitus without complications, G25.81 - Restless legs syndrome, I10 - Essential (primary) hy pertension, K90.0 - Celiac disease, M19.90 - Unspecified osteoarthritis, unspecified site, R20.2 - Paresthesia of skin, R53.83 - Other fatigue Erythrocyte Sedimentation Rate Today E11.9 - Type 2 diabetes mellitus without complications, G25.81 - Restless legs syndrome, I10 - Essential (primary) hypertension, K90.0 - Celiac disease, M19.90 - Unspecified osteoarthritis, uns pecified site, R20.2 - Paresthesia of skin, R53.83 - Other fatigue Ferritin Today E11.9 - Type 2 diabetes mellitus without complications, G25.81 - Restless legs syndrome, I10 - Essential (primary) hypertension, K90.0 - Celiac disease, M19.90 - Unspecified osteoarthritis, unspecified site, R20.2 - Paresthesia of skin, R53.83 - Other fatigue Comprehensive Met. Panel Today E11.9 - Type 2 diabetes mellitus without complications, G25.81 - Restless legs syndrome, I10 - Essential (primary) hypertension, K90.0 - Celiac disease, M19.90 - Unspecified osteoarthritis, unspecified site, R20.2 - Paresthesia of skin, R53.83 - Other fatigue TSH reflex Free T4 Today E11.9 - Type 2 diabetes mellitus without complications, G25.81 - Restless legs syndrome, I10 - Essential (primary) hypertension, K90.0 - Celiac disease, M19.90 - Unspecified osteoarthritis, unspecified site, R20.2 - Paresthesia of skin, R53.83 - Other fatigue CRP High Sensitivity Today E11.9 - Type 2 diabetes mellitus without complications, G25.81 - Restless legs syndrome, I10 - Essential (primary) hypertension, K90.0 - Celiac disease, M19.90 - Unspecified osteoarthritis, unspecified site, R20.2 - Paresthesia of skin, R53.83 - Other fatigue Coding Level of Care Code Est Pt Level 4 (88691) Diagnoses Chronic migraine without aura G43.709 SHUN (obstructive sleep apnea) G47.33 Restless leg syndrome G25.81 Paresthesia R20.2
[2024-04-14 15:16] VITALS: BP 124/70; PULSE 71; O2SAT 97; BMI 28.0
== END 2024-04-14 16:03 | disposition home or self-care (01) ==
PROVIDERS: PCP General Practice; Visit Provider Nurse Practitioner Family
DX: G43.709 Chronic migraine without aura, not intractable, without status migrainosus (principal); G47.33 Obstructive sleep apnea (adult) (pediatric); G25.81 Restless legs syndrome; R20.2 Paresthesia of skin
CPT/HCPCS: 99214

== ENCOUNTER → 2024-04-14 14:56 | Outpatient (BNVA) | payer OTHER, SELFPAY | PROVIDERS: PCP General Practice; Visit Provider Nurse Practitioner Family | DX: G43.709 Chronic migraine without aura, not intractable, without status migrainosus (principal); G47.33 Obstructive sleep apnea (adult) (pediatric); G25.81 Restless legs syndrome; R20.2 Paresthesia of skin | CPT/HCPCS: 99212 ==

== ENCOUNTER 2024-04-15 11:53 | Outpatient (REF) | payer OTHER, SELFPAY ==
[2024-04-15 13:23] LABS: Erythrocyte Sedimentation Rate 10 MM/HR (0-20)
[2024-04-15 13:27] LABS: Alanine Aminotransferase 19 U/L (0-31); Albumin Level 4.3 g/dL (3.5-5.0); Alkaline Phosphatase 91 U/L (39-117); Anion Gap 13 (12-20); Aspartate Amino Transferase 16 U/L (5-31); Bilirubin Total 1.2 mg/dL (0.0-1.0); Blood Urea Nitrogen 16 mg/dL (9-16); Calcium 9.9 mg/dL (8.4-10.2); Carbon Dioxide 26 mmol/L (22-29); Chloride 107 mmol/L (96-108); Estimated Glomerular Filt Rate > 60; Glucose Random 172 mg/dL (60-115); Iron 90 mcg/dL (30-160); Percent Iron Saturation 39 % (15-50); Sodium 143 mmol/L (135-145); Total Iron Binding Capacity 230 mcg/dL (228-428); Unsaturated Iron Binding 140 ug/dL
[2024-04-15 13:44] LABS: Ferritin 135 ng/mL (10-250); TSH reflex Free T4 0.83 uIU/mL (0.32-4.0)
[2024-04-15 13:51] LABS: Folate 10.3 ng/mL (> or = 4.0); Vitamin B12 658 pg/mL (200-900)
[2024-04-16 11:04] LABS: CRP High Sensitivity 3.4 mg/L
[2024-04-19 14:58] LABS: Vitamin D 25-OH, D2 <4 ng/mL; Vitamin D 25-OH, D3 43 ng/mL; Vitamin D 25-OH, Total 43 ng/mL (30-100)
== END 2024-04-15 11:54 | disposition home or self-care (01) ==
LOC: HO.LAB 11:53
PROVIDERS: Visit Provider Nurse Practitioner Family
DX: K90.0 Celiac disease (principal); G25.81 Restless legs syndrome; I10 Essential (primary) hypertension; E11.9 Type 2 diabetes mellitus without complications; R20.2 Paresthesia of skin; R53.83 Other fatigue; M19.90 Unspecified osteoarthritis, unspecified site
CPT/HCPCS: 36415; 80053; 82306; 82550; 82607; 82728; 82746; 83540; 84443; 85652; 86141

== ENCOUNTER 2024-04-26 11:38 | Outpatient (REF) | payer OTHER, SELFPAY ==
[2024-04-26 13:22] LABS: Anion Gap 12 (12-20); Blood Urea Nitrogen 13 mg/dL (9-16); Calcium 9.9 mg/dL (8.4-10.2); Carbon Dioxide 29 mmol/L (22-29); Chloride 104 mmol/L (96-108); Estimated Glomerular Filt Rate 59; Glucose Random 211 mg/dL (60-115); Potassium 3.2 mmol/L (3.3-5.1); Sodium 142 mmol/L (135-145)
== END 2024-04-26 11:39 | disposition home or self-care (01) ==
LOC: HO.LAB 11:38
PROVIDERS: PCP General Practice; Visit Provider Nurse Practitioner Family
DX: E87.6 Hypokalemia (principal)
CPT/HCPCS: 36415; 80048

== ENCOUNTER 2024-05-18 09:37 | Outpatient (AMB) | payer OTHER, SELFPAY ==
--- NOTE | 2024-05-18 09:43 | MHC.OFFVIS ---
Intake Visit Reasons: OV- LT hand EMG follow up Intake Note: Stephanie is a 68 year old female who presents to the office today for a left hand EMG follow up. Pt states she still has bad pain in her left hand all day long. Allergies codeine Adverse Reaction (Intermediate, Verified 05/18/24 09:44) vertigo, nausea HPI HPI OV- LT hand EMG follow up: Details: Patient is a 68-year-old female who presents to the office today for evaluation of left hand pain, numbness and tingling, status post EMG and nerve conduction study on 03/09/2024. The patient is also status post right carpal tunnel release with on 10/23/2023, and reports that she does still experience occasional numbness and tingling of the median nerve distribution of the right hand, but this is improved from prior to surgery. Today, the patient reports that her left hand has worsened since this time, and she would like to explore surgical treatment for this. The patient reports that most of the time her hand feels tingling, but it does still occasionally have periods of normal sensation. The patient reports that this numbness does occasionally extend all the way up through the to the shoulder. The patient denies any numbness and tingling of the small finger at this time. No other acute complaints or concerns [facility] Medical History GERD (gastroesophageal reflux disease) Bleeding hemorrhoids Spondylosis of lumbar spine Diabetes High cholesterol HTN (hypertension) Back pain, chronic Migraines Surgical History History of carpal tunnel release History of hemorrhoidectomy (~04/01/23) History of esophagogastroduodenoscopy (EGD) Hx of fusion of cervical spine Hx of colonoscopy Hx of cholecystectomy Hx of tubal ligation Family History Father History of heart attack Mother Hx of type 1 diabetes mellitus Family history of high blood pressure Social History Alcohol intake: never Patient Tobacco Use Status: Current everyday Tobacco user Tobacco use type: Cigarette Cigarette Packs Per Day: 0.5 Cigarettes Per Day: 10 Years Smoked: 45 Current occupational status: employed 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 Normal sensation to all other digits in the left hand today. Normal sensation in the tips of all digits of the right hand today. No thenar or intrinsic wasting. Good APB muscle firing and good finger cross. Vascular: Capillary refill brisk. ROM: Patient can make a fist and extend all their digits. Skin: No lacerations or abrasions noted. Well-healed incision site over the right volar wrist General: No ecchymosis. No erythema or evidence of infection. Assessment & Plan Assessment & Plan (1) Carpal tunnel syndrome of left wrist: Code(s): G56.02 - Carpal tunnel syndrome, left upper limb Category: Medical (2) S/P carpal tunnel release: Code(s): Z98.890 - Other specified postprocedural states Category: Surgical Plan 1. Left carpal tunnel syndrome Intermittent but daily, worse at night I educated the patient about the condition. I discussed both operative and nonoperative treatment options. The patient would like to proceed with surgery. The risks and benefits of operative treatment were discussed with the patient and the patient wishes to proceed with surgery. These risks include, but are not limited to, risk of damage to blood vessels, nerves, tendons, infection, recurrence, incomplete relief of preoperative symptoms, persistent pain, possible need for further surgery, and the risks associated with regional blocks and/or anesthesia. Plan is to take the patient to the operating room at some point in the next few weeks for the following procedures: 1. Left carpal tunnel release under local anesthesia All of the preoperative paperwork including the consent was discussed today. All of the patient's questions were answered in the clinic today. The patient understands that they will be in contact with our surgical elastic knitter hand frame to discuss scheduling their procedure. Patient reports diabetes, is unsure of last hemoglobin A1c, patient reports that she has an appointment to have a new A1c drawn on 05/20/2024, and will call with the results of that when she has them Denies blood thinners, asthma, heart issues, lung issues, kidney issues Patient reports current smoking, approximately a half a pack a day Patient is informed of the risks of delayed wound healing with smoking as it pertains to surgery, and patient states that she is already trying to quit, but due to several extenuating stressors in her life has become difficult. Patient is aware of these risk factors, and states that she will continue to attempt smoking cessation. 2. Carpal tunnel syndrome, right, status post carpal tunnel release DOS 10/23/[address] Enriquez Patient reports that symptoms have improved significantly since DOS, however she still experiences some numbness and tingling in her right hand Patient expresses satisfaction with the outcome of her surgery, and also states that she had delayed wound healing secondary to smoking with her previous surgery. Incision looks good today Patient will follow-up prior to surgery for preop visit, sooner with any acute concerns Coding Level of Care Code Est Pt Level 4 (29951) Diagnoses Carpal tunnel syndrome of left wrist G56.02 S/P carpal tunnel release Z98.890
== END 2024-05-18 10:28 | disposition home or self-care (01) ==
PROVIDERS: PCP General Practice
DX: G56.02 Carpal tunnel syndrome, left upper limb (principal); E11.9 Type 2 diabetes mellitus without complications
CPT/HCPCS: 99214

== ENCOUNTER → 2024-05-18 09:37 | Outpatient (BNVA) | payer OTHER, SELFPAY | PROVIDERS: PCP General Practice | DX: G56.02 Carpal tunnel syndrome, left upper limb (principal); Z98.890 Other specified postprocedural states | CPT/HCPCS: 99212 ==

== ENCOUNTER 2024-05-25 11:34 | Outpatient (REF) | payer OTHER, SELFPAY ==
--- NOTE | ~2024-05-25 | XR_ITS ---
EXAMINATION: XR CERVICAL SPINE CLINICAL INFORMATION: Cervical spine pain. COMPARISON: 07/26/2016. TECHNIQUE: 3 views of the cervical spine were obtained. FINDINGS: Redemonstration of anterior fusion at C5-C6 with fixator plate and screws. Hardware appears intact. Straightening of the normal cervical lordosis. Limited visualization of C7 due to overlying bony and soft tissue structures. Degenerative changes with loss of disc space height at C4-C5, and C6-C7. XR/XR cervical spine 3V IMPRESSION: 1. Redemonstration of anterior fusion at C5-C6. Hardware appears intact. 2. Progression of degenerative changes with loss of disc space height at C4-C5, and C6-C7. This study was presented today May 25, 2024 for interpretation. Stat results provided at this time as requested by referring provider.
[2024-05-25 13:23] LABS: MANUAL DIFF FLAG NO
[2024-05-25 13:45] LABS: Basophils Absolute Auto 0.1 X10*3/uL (0.0-0.2); Basophils Percent Auto 0.6 % (0-2); Eosinophils Absolute Auto 0.1 X10*3/uL (0.0-0.4); Eosinophils Percent Auto 1.4 % (0-4); Hematocrit 43.9 % (37.0-47.0); Hemoglobin 14.3 g/dl (12.0-16.0); Imm Gran Abs Auto 0.04 X10*3/uL (0.00-0.03); Imm Gran Pct Auto 0.4 % (0.0-0.4); Lymphocytes Percent Auto 21.2 % (20-40); Mean Corpuscular HGB Conc 32.6 g/dl (31.0-35.0); Mean Corpuscular Hemoglobin 30.8 pg (27.0-33.0); Mean Corpuscular Volume 94.4 fL (80.0-98.0); Monocytes Absolute Auto 0.7 X10*3/uL (0.1-1.2); Monocytes Percent Auto 7.4 % (2-11); Neutrophils Absolute Auto 6.4 x10*3/uL (2.0-8.3); Platelet Count 248 X10*3/uL (160-400); Red Blood Count 4.65 X10*6/uL (4.20-5.50); Red Cell Distribution Width 14.3 % (11.0-16.0); White Blood Count 9.3 X10*3/uL (4.8-10.8)
[2024-05-25 14:04] LABS: Alanine Aminotransferase 26 U/L (0-31); Albumin Level 4.4 g/dL (3.5-5.0); Alkaline Phosphatase 102 U/L (39-117); Anion Gap 12 (12-20); Aspartate Amino Transferase 21 U/L (5-31); Bilirubin Total 1.3 mg/dL (0.0-1.0); Blood Urea Nitrogen 16 mg/dL (9-16); Calcium 10.1 mg/dL (8.4-10.2); Carbon Dioxide 30 mmol/L (22-29); Chloride 106 mmol/L (96-108); Estimated Glomerular Filt Rate > 60; Glucose Random 144 mg/dL (60-115); Lipase 24 U/L (8-78); Potassium 4.1 mmol/L (3.3-5.1); Sodium 144 mmol/L (135-145); Total Protein 7.2 g/dL (6.5-8.0)
[2024-05-26 07:23] LABS: ~HepC Num1 0.13 S/CO (0.00-0.79); ~Hepatitis C Antibody Nonreactive (Nonreactive)
== END 2024-05-25 11:35 | disposition home or self-care (01) ==
LOC: HO.HHCL 11:34
PROVIDERS: Visit Provider General Practice
DX: R10.13 Epigastric pain (principal); Z13.89 Encounter for screening for other disorder
CPT/HCPCS: 36415; 72040; 80053; 83690; 85025; 86803

== ENCOUNTER 2024-06-29 07:50 | Outpatient (REF) | payer OTHER, SELFPAY ==
--- NOTE | 2024-06-24 14:00 | P.CONNP_ITS ---
History of Present Illness Reason for Consult Consult date: 06/24/24 Chief Complaint Chief complaint: epigastric pain,at risk for osteoporosis History of Present Illness Narrative: RTANE PT for years with CKD 2, DM nad Albuminuria Seen today for routine f/u Doing well on kidney protective regiment PMFSH Past Medical History Medical History GERD (gastroesophageal reflux disease) Bleeding hemorrhoids Spondylosis of lumbar spine Diabetes High cholesterol HTN (hypertension) Back pain, chronic Migraines Family History Family History Father History of heart attack Mother Hx of type 1 diabetes mellitus Family history of high blood pressure Surgical History Surgical History History of carpal tunnel release History of hemorrhoidectomy (~04/01/23) History of esophagogastroduodenoscopy (EGD) Hx of fusion of cervical spine Hx of colonoscopy Hx of cholecystectomy Hx of tubal ligation Social History Social History Alcohol intake: never Patient Tobacco Use Status: Current everyday Tobacco user Tobacco use type: Cigarette Cigarette Packs Per Day: 0.5 Cigarettes Per Day: 10 Years Smoked: 45 Current occupational status: employed 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 Allergies Allergy/AdvReac Type Severity Reaction Status Date / Time codeine AdvReac Intermediate vertigo, Verified 05/18/24 09:44 nausea Home Medications ?Medication ?Instructions ?Recorded ?Confirmed ?Last Taken ?Type atenolol 50 mg tablet 75 mg PO DAILY 08/08/20 04/14/24 04/01/23 History cholecalciferol (vitamin D3) 25 25 mcg PO DAILY 08/08/20 04/14/24 Unknown History mcg (1,000 unit) capsule (Vitamin D3) hydrochlorothiazide 25 mg tablet 25 mg PO DAILY 08/08/20 04/14/24 03/31/23 History lisinopril 20 mg tablet 20 mg PO DAILY 08/08/20 04/14/24 03/31/23 History acetaminophen 650 mg 650 mg PO Q8H PRN Pain 03/21/22 04/14/24 Unknown History tablet,extended release (8 Hour Pain Reliever) dapagliflozin propanediol 5 mg 5 mg PO DAILY 03/21/22 04/14/24 03/31/23 History tablet (Farxiga) alcohol swabs (BD Alcohol Swabs) 1 pad topical BID 08/21/22 04/14/24 Unknown History glipizide 10 mg tablet, extended 20 mg PO DAILY 08/21/22 04/14/24 03/31/23 History release 24 hr lancets 28 gauge (FreeStyle #100 ea 08/21/22 04/14/24 Unknown History Lancets) melatonin 5 mg tablet 5 mg PO BEDTIME insomnia 08/21/22 04/14/24 Unknown History dulaglutide 1.5 mg/0.5 mL 1.5 mg subcut QWEEK 12/13/22 04/14/24 03/31/23 History subcutaneous pen injector ([facility]) Procedures Date of Service Date of Service: 06/24/24
--- NOTE | ~2024-06-29 | MM_ITS ---
EXAMINATION: BONE DENSITOMETRY CLINICAL INDICATION: Other specified personal risk factors, not elsewhere classified. COMPARISON: This is the patient's baseline examination. TECHNIQUE: Using a [employer] DXA System (software version: 13.1) manufactured by [employer], dual-energy x-ray absorptiometry was performed of the lumbar spine and left hip. The images are of good technical quality. Summary results are attached. FINDINGS: LEFT FEMUR, NECK: BMD 0.848 g/cm2, Z-score 0.1, T-score -1.4, osteopenia. LEFT FEMUR, TOTAL: BMD 0.896 g/cm2, Z-score 0.4, T-score -0.9, normal. AP SPINE L1-L3 (excluding L4): The data of L1-L4 has been changed to exclude the L4 vertebral body, because degenerative sclerosis at this level may cause overestimation of lumbar spine density. BMD 1.069 g/cm2, Z-score 0.7, T-score -0.8, normal. IDENTIFIED RISK FACTORS: Low calcium intake, menopause, renal, thiazide, tobacco user (current smoker). HISTORY OF FRACTURE: None listed. MEDICATIONS: Calcium. MM/XR DEXA axial skeleton IMPRESSION: 1. DIAGNOSIS: Osteopenia based on the lowest T-score value of -1.4 in the femoral neck applying World Health Organization criteria. 2. 10-YEAR FRACTURE RISK PREDICTION, FRAX: Major osteoporotic fracture (clinical spine, forearm, hip or shoulder) 5.1%. Hip fracture 0.9%. 3. Treatment Recommendations: NOF guidelines recommend consideration for treatment in postmenopausal women and men age 50 and older presenting with the following: -A hip or vertebral (clinical or morphometric) fracture. -T-score less than or equal to -2.5 at the femoral neck or spine after appropriate evaluation to exclude secondary causes. -Low bone mass at the hip or spine and a 10-year fracture probability by FRAX of greater than or equal to 3% for hip fracture or greater than or equal to 20% for major osteoporotic fracture based on the [place] adapted WHO algorithm. 4. Other Recommendations: All treatment decisions require clinical judgment and consideration of individual patient factors, including patient preferences, comorbidities, previous drug use, risk factors not captured in the FRAX model (e.g. frailty, falls, vitamin D deficiency, increased bone turnover, interval significant decline in bone density) and possible under or overestimation of fracture risk by FRAX. Additional medical evaluation for secondary cause of low bone mineral density may be appropriate. FUTURE SCAN RECOMMENDATION: People with diagnosed cases of osteoporosis or at high risk for fracture should have regular bone mineral density tests. For patients eligible for Medicare, routine testing is allowed once every 2 years. The testing frequency can be increased to one year for patients who have rapidly progressing disease, those who are receiving or discontinuing medical therapy to restore bone mass, or have additional risk factors. Electronically signed by: Buddy Gold MD 07/02/2024 08:06 AM EDT
--- NOTE | ~2024-06-29 | US_ITS ---
EXAMINATION: US ABDOMEN COMPLETE CLINICAL INFORMATION: Epigastric pain and bilirubin elevation to 1.3. COMPARISON: X-ray abdomen 11/16/2021. CT abdomen and pelvis 08/26/2019. X-ray abdomen 02/28/2019. Renal ultrasound 03/16/2015 and 02/20/2015. TECHNIQUE: Real-time imaging of the abdominal viscera. FINDINGS: PANCREAS: Normal. ABDOMINAL AORTA: The proximal, mid, and distal segments are normal in caliber. INFERIOR VENA CAVA: Visualized portions are normal. LIVER: The liver is normal in size. The liver contour is normal. There is mildly increased liver parenchymal echogenicity suggesting hepatic steatosis. On the 2018 CT scan, hepatic steatosis can also be seen as attenuation compared to the spleen was decreased on the noncontrast sequences (for example 4:57). No focal hepatic lesion. There is no intrahepatic biliary duct dilatation seen. GALLBLADDER: Surgically absent. COMMON BILE DUCT: Normal in caliber measuring 0.8 cm in diameter. RIGHT KIDNEY: Normal. No hydronephrosis. No renal calculi or focal parenchymal lesions. The kidney measures 9.5 cm in maximum dimension. LEFT KIDNEY: Normal. No hydronephrosis. No renal calculi or focal parenchymal lesions. The kidney measures 9.7 cm in maximum dimension. SPLEEN: Normal. The spleen measures 8.3 cm in maximum dimension. FREE FLUID: None. US/US abdomen complete IMPRESSION: Mild increased echogenicity of the liver suggesting hepatic steatosis. Electronically signed by: Jose Alfredo Nick MD 07/03/2024 12:35 PM EDT
== END 2024-06-29 07:51 | disposition home or self-care (01) ==
LOC: HO.US 07:50
PROVIDERS: PCP General Practice; Visit Provider General Practice
DX: R10.13 Epigastric pain (principal); Z13.820 Encounter for screening for osteoporosis; Z78.0 Asymptomatic menopausal state; Z91.89 Other specified personal risk factors, not elsewhere classified; F17.200 Nicotine dependence, unspecified, uncomplicated
CPT/HCPCS: 76700; 77080

== ENCOUNTER 2024-07-01 11:21 | Outpatient (REF) | payer OTHER, SELFPAY ==
--- NOTE | ~2024-07-01 | MM_ITS ---
EXAMINATION: MM SCREENING DIGITAL BREAST TOMOSYNTHESIS, BILATERAL CLINICAL INFORMATION: Screening. Asymptomatic. COMPARISON: Mammography: Comparison is made with available priors TECHNIQUE: Digital breast mammography with tomosynthesis is performed in both the craniocaudal and mediolateral oblique views along with computer-aided detection (CAD). FINDINGS: The breasts are heterogeneously dense, which may obscure small masses (ACR BI-RADS breast composition Category c). Left: Focal asymmetry upper outer breast middle depth. Focal asymmetry upper central breast middle depth. No suspicious calcifications or other abnormal findings. Right: Asymmetry lateral breast posterior to the cc view. Asymmetry superior breast anterior to middle depth on MLO view. No suspicious calcifications or other abnormal findings. MM/MM tomosynthesis screening BI IMPRESSION: Additional imaging is recommended ASSESSMENT: BI-RADS BI-RADS 0 - Incomplete: Needs additional Imaging. RECOMMENDATION: 1. Additional views of the bilateral breast 2. Targeted ultrasound if warranted after review of the additional views. 3. Radiology department staff will contact the patient for additional imaging. Additional Imaging required This examination should not preclude the clinical evaluation of a suspicious palpable abnormality. This patient's information was entered into a reminder system with a target due date for their next mammogram. Electronically signed by: Felicia English DO 07/14/2024 07:47 PM EDT
== END 2024-07-01 11:22 | disposition home or self-care (01) ==
LOC: HO.MAMMO 11:21
PROVIDERS: PCP General Practice; Visit Provider General Practice
DX: Z12.31 Encounter for screening mammogram for malignant neoplasm of breast (principal)
CPT/HCPCS: 77063; 77067

== ENCOUNTER → 2024-07-01 11:30 | Outpatient (BNV) | payer OTHER, SELFPAY | PROVIDERS: PCP General Practice; Visit Provider Internal Medicine | DX: Z12.31 Encounter for screening mammogram for malignant neoplasm of breast (principal) | CPT/HCPCS: 77063; 77067 ==

== ENCOUNTER 2024-07-30 13:25 | Outpatient (AMB) | payer OTHER, SELFPAY ==
--- NOTE | 2024-07-30 13:34 | A.OFFVIS_ITS ---
Vital Signs 07/30/24 13:36 Height 5 ft 1 in Weight 150 lb BMI 28.3 Intake Visit Reasons: Follow up Intake Note: Patient presents for follow up. patients headaches are worst medication not working Allergies codeine Adverse Reaction (Intermediate, Verified 07/30/24 13:39) vertigo, nausea Medication List - Last Reconciled 07/30/24 by MAURO Larios acetaminophen ER (8 Hour Pain Reliever) 650 mg PO Q8H PRN alcohol swabs (BD Alcohol Swabs) 1 pad topical BID atenolol 75 mg PO DAILY atogepant (Qulipta) 60 mg PO DAILY 30 days atorvastatin 40 mg PO BEDTIME bisacodyl (Dulcolax (bisacodyl)) 10 mg (2 x 5 mg) PO BEDTIME 30 days cholecalciferol (vitamin D3) (Vitamin D3) 25 mcg PO DAILY clonazepam 0.5 mg PO BEDTIME 30 days dapagliflozin propanediol (Farxiga) 5 mg PO DAILY diclofenac potassium 50 mg PO BID PRN 30 days docusate sodium 100 mg PO BID PRN dulaglutide (Trulicity) 1.5 mg subcut QWEEK famotidine (Pepcid) 40 mg PO BEDTIME galcanezumab-gnlm (Emgality Pen) 120 mg subcut ONCE 30 days glipizide ER 20 mg PO DAILY hydrochlorothiazide 25 mg PO DAILY lancets (FreeStyle Lancets) As directed linaclotide (Linzess) 145 mcg PO QAM lisinopril 20 mg PO DAILY melatonin 5 mg PO BEDTIME HPI Comments Details: 68-yr-old female presents for f/u visit for migraine exacerbation. Pt denies any significant interval medical changes. Pt reports without known trigger, she started having worsening of her typical migraine- thus it is a bit more in the posterior temples and bridge of nose as well. She is having a lot of nausea, photophobia, irritability, and neck tightness. She went to [facility] ER 2 days ago w/ worsening of her typical migraine. She was worried as her son was recently dx'd w/ intracranial aneurysm and her brother has had an intracranial aneurysm as well. Work-up was unremarkable and she was d/c'd on her usual regimen. In the ER, Head CT, Head/Neck CTA, labs were normal. She does note that she does not always adhere to a gluten free diet- states sometimes this bothers her, but sometimes not. States certain foods cause GI upset. She is f/b GI. She is not sure if her celiac dz is monitored. Baseline headache characteristics: Severe, Throbbing pain usually in bilateral temples, sometimes the top of her head or mid-frontal a/w Photophobia, phonophobia, nausea, worsening external dizziness, brain fog, worsening blurry vision, neck tightness, top of head allodynia. [facility] Medical History GERD (gastroesophageal reflux disease) Bleeding hemorrhoids Spondylosis of lumbar spine Diabetes High cholesterol HTN (hypertension) Back pain, chronic Migraines Surgical History History of carpal tunnel release History of hemorrhoidectomy (~04/01/23) History of esophagogastroduodenoscopy (EGD) Hx of fusion of cervical spine Hx of colonoscopy Hx of cholecystectomy Hx of tubal ligation Family History Father History of heart attack Mother Hx of type 1 diabetes mellitus Family history of high blood pressure Social History Alcohol intake: never Patient Tobacco Use Status: Current everyday Tobacco user Tobacco use type: Cigarette Cigarette Packs Per Day: 0.5 Cigarettes Per Day: 10 Years Smoked: 45 Current occupational status: employed 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 Physical Exam Vital Signs: BMI result Body Mass Index 28.3 Const General: cooperative and no acute distress Orientation/consciousness: patient oriented x3 Resp Effort & Inspection: normal respiratory effort and able to speak in complete sentences Neuro Other: Photophobic General: patient oriented x3 Cranial nerves: Yes CN's II-XII intact bilaterally Cognition (Neuro): normal cognition Psych Appearance: grossly normal Mental Status: mental status grossly normal Speech and movement: Normal speech and movement present Affect: normal affect Attitude: cooperative Assessment & Plan Assessment & Plan (1) Status migrainosus: Code(s): G43.901 - Migraine, unspecified, not intractable, with status migrainosus Category: Medical (2) Chronic migraine without aura: Comment: ? hypnic headache component Code(s): G43.709 - Chronic migraine without aura, not intractable, without status migrainosus Category: Medical Plan For status migraine: Recent Head CT, Head/Neck CTA- normal. No focal neuro deficits. Likely exacerbation of typical migraine. Start Prednisone 40mg qd x's 5 days. Monitor blood sugars. Take her famotidine as ordered by GI. Pt advised that unmanaged celiac dz can cause neurological s/s, including worsening headache and migraine burden. Start metoclopramide 5-10mg po qid prn N/V and/or migraine. Trial Rizatriptan 10mg tab, 1/2 - 1 tab (5-10mg) at onset of headache, may repeat in 2 hours. Max of 2 tabs (200mg) per 24 hours. May adjunct with Diclofenac 50mg bid as needed. Potential adverse effects of triptans, include but are not limited to nausea, fatigue, chest tightness/tingling (usually passes within a few minutes), medication overuse headaches. For overall headache management: Continue optimizing good self-care, including but not limited to maintaining a healthy diet,? adequate fluid intake, adequate sleep, and engaging in regular physical activity. ? For acute headache treatment: BP is still normotensive. Continue Diclofenac 50mg bid prn. Previous acute migraine medication trials: Nurtec- ineffective, Ubrelvy- ineffective. Fioricet- ineffective. Sumatriptan- ineffective. Acute migraine medication contraindications: none at this time. ? For headache prevention medication: Continue Qulipta (atogepant) 60 mg po qhs- monitor for s/e of constipation. Continue Emgality 120mg sc monthly. As pt typically has good clinical effect from concomitant use of Emgality and Qulipta. Pt is currently on Atenolol for HTN. Previous migraine prevention medication trials: Gabapentin- ineffective, Amitriptyline- ineffective, Topiramate- ineffective, Botox x's 2 tx sessions- ineffective, bi-temporal trigger point injections- ineffective. Magnesium 400mg qhs- not tolerated. Riboflavin- ineffective. Baclofen 10-20mg qhs- not tolerated. Riboflavin 400mg- inefefctive Migraine prevention medication contraindications: Aimovig d/t h/o RLS and constipation. Future considerations- Caffeine qhs, [place]. ? For sleep and restless leg syndrome: Clonazepam 0.5mg po qhs. Previous trials- Amitriptyline 10-20mg qhs- did not help sleep or headaches. Pt would not be a candidate for Inspire, as her last sleep study showed mild SHUN. Future considerations- mandibular device. ? f/u in 3 months or sooner any new or worsening s/s. Medications: New metoclopramide HCl 5 - 10 mg (1 - 2 x 5 mg) PO Q4-6H 30 days PRN 60 tabs 1RF nausea or migraine prednisone 40 mg (2 x 20 mg) PO DAILY 5 days 10 tabs 0RF G43.901 - Migraine, unspecified, not intractable, with status migrainosus rizatriptan max 2 tabs per day or 6 tabs per week. May take w/ Diclofenac. 5 - 10 mg (0.5 - 1 x 10 mg) PO Q2H 21 days PRN 12 tabs 3RF migraine headache Refilled diclofenac potassium 50 mg PO BID 30 days PRN 60 tabs 4RF headache Coding Level of Care Code Est Pt Level 4 (65053) Diagnoses Status migrainosus G43.901 Chronic migraine without aura G43.709
[2024-07-30 13:36] VITALS: BMI 28.3
== END 2024-07-30 14:26 | disposition home or self-care (01) ==
PROVIDERS: PCP General Practice; Visit Provider Nurse Practitioner Family
DX: G43.901 Migraine, unspecified, not intractable, with status migrainosus (principal); G43.709 Chronic migraine without aura, not intractable, without status migrainosus
CPT/HCPCS: 99214

== ENCOUNTER → 2024-07-30 13:25 | Outpatient (BNVA) | payer OTHER, SELFPAY | PROVIDERS: PCP General Practice; Visit Provider Nurse Practitioner Family | DX: G43.901 Migraine, unspecified, not intractable, with status migrainosus (principal); G43.709 Chronic migraine without aura, not intractable, without status migrainosus | CPT/HCPCS: 99212 ==

== ENCOUNTER 2024-08-26 11:03 | Outpatient (AMB) | payer OTHER, SELFPAY ==
[2024-08-26 11:15] VITALS: BP 152/74; PULSE 76; BMI 28.2
--- NOTE | 2024-08-26 11:15 | A.OFFVIS_ITS ---
Vital Signs 08/26/24 11:15 Height 5 ft 1 in Weight 149 lb 7.574 oz BMI 28.2 BP 152/74 H Blood Pressure Location Lt brachial Position Sitting Pulse 76 Intake Visit Reasons: 6 month follow up Intake Note: Patient in office today in follow up of epigastric pain. CC: Patient c/o abdominal cramps, epigastric pain, 2 weeks of migraines last month, and chocking with pill and some food. She also c/o nausea, and constipation. She states that she would like to have an EGD scheduled. [employer] Required: No Accompanied by: Self / Same As Patient Allergies codeine Adverse Reaction (Intermediate, Verified 09/15/24 12:06) vertigo, nausea HPI HPI 6 month follow up: Details: Assessment & Plan (1) Chronic idiopathic constipation: Code(s): K59.04 - Chronic idiopathic constipation Category: Medical (2) Celiac disease: Code(s): K90.0 - Celiac disease Category: Medical (3) GERD (gastroesophageal reflux disease): Comment: Resolved with celiac diet Code(s): K21.9 - Gastro-esophageal reflux disease without esophagitis Category: Medical Plan She admits she has not been following her Celiac diet r/t rising cost of food. With this, she is having more GERD, and I will give her famotidine as this is better for prn use. She continues to do well on her Linzess and bisacodyl and colace. She is still struggling with her right hand after CTR with swelling and loss of strength. She received a cortisone injection. ROV 6 mos. Medications: New famotidine (Pepcid) 40 mg PO BEDTIME 30 tabs 6RF K21.9 - Gastro-esophageal reflux disease without esophagitis linaclotide (Linzess) Take first thing in the morning with a full glass of water. 145 mcg PO QAM 30 caps 3RF K58.1 - Irritable bowel syndrome with constipation Refilled docusate sodium 100 mg PO BID PRN 60 caps 6RF Constipation bisacodyl (Dulcolax (bisacodyl)) 10 mg (2 x 5 mg) PO BEDTIME 60 tabs 6RF 30 days K59.04 - Chronic idiopathic constipation TODAY'S VISIT She is quite frustrated because her migraines have been much worse recently. Also, she is having worst trouble with her GI symptoms initially it was severe epigastric pain with eating. Now it has spread over the entirety of the abdomen with a great deal of bloating. Her constipation continues to be severe and she is only moving her bowels every few days and then when she does it will be followed by softer stools and diarrhea after very hard stools initially. She is only using the Linzess at 145 micro g when she feels very backed up because if she takes it then she can not go out because of frequency of stooling and watery stools. I think we really need to get her on a lower dose and have her moving her bowels somewhat every day to get away from this yellow you affective very hard stools followed by diarrhea that probably is enabling gas trapping and some of the cramping and irritability of her bowels. I explained this to her and she is willing to try the Linzess at 72 micro g on a daily basis or at least a more frequent basis. If this is too strong and cause a similar problems then will probably back off to something like Amitiza which we can titrate to a lower level. She also has Colace and bisacodyl at her disposal. She has also developed dysphagia with things sticking just above the sternal notch and this is causing her not to take her Lipitor and her magnesium pills. We will get an EGD and have her put on a call list for this since she wants it julissa which is reasonable. Will also get an x-ray to assess her for stool burden a lab to assess her thyroid and TTE GA to see how well she has been at avoiding gluten. She does have celiac and may have a constipation variant of this and she was educated as such. She admits it is difficult to follow the celiac diet because it is quite expensive and I am uncertain how much this is contributing to her overall symptoms. Also her migraines have been much worse and I am uncertain if this is part of the total presentation or whether this is a separate issue. She is on multiple migraine medications which is also frustrating for her because she has daily pain despite being adherent to them. We discussed the possible role of her G LP 1 inhibitor but it does not seem that Trulicity is as strongly associated with headaches as is Ozempic. Return office visit in 3 weeks to go over her labs and see how she is doing on the new regimen with the lower dose Linzess. [facility] Medical History Bleeding hemorrhoids Nausea Epigastric pain Hand pain, right Chronic migraine without aura Carpal tunnel syndrome of left wrist Pain of left thumb Numbness and tingling in left hand Carpal tunnel syndrome of right wrist Right arm numbness Arthritis of right shoulder region GERD (gastroesophageal reflux disease) Spondylosis of lumbar spine Diabetes High cholesterol HTN (hypertension) Back pain, chronic Migraines Surgical History S/P carpal tunnel release History of fusion of cervical spine History of carpal tunnel release History of hemorrhoidectomy (~04/01/23) History of esophagogastroduodenoscopy (EGD) Hx of fusion of cervical spine Hx of colonoscopy Hx of cholecystectomy Hx of tubal ligation Family History Father History of heart attack Mother Hx of type 1 diabetes mellitus Family history of high blood pressure Social History Alcohol intake: never Patient Tobacco Use Status: Current everyday Tobacco user Tobacco use type: Cigarette Cigarette Packs Per Day: 0.5 Cigarettes Per Day: 10 Years Smoked: 45 Current occupational status: employed 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 Review of Systems Const Denies fatigue, Denies fever(s), Reports headache(s), Denies night sweats, Reports poor appetite and Denies weight loss ENT Reports Normal hearing present, Denies dental pain, Reports dysphagia, Reports headache(s), Denies hearing loss, Denies mouth pain, Denies odynophagia, Denies throat swelling, Denies tongue swelling and Reports other (Dentition adequate) Card Reports no additional complaints Resp Reports no additional complaints GI Details: Reports abdominal pain, Denies melena, Reports bloating, Denies hematochezia, Reports constipation, Denies GI cramping, Reports dysphagia, Denies excessive flatus, Denies early satiety, Reports heartburn, Denies diarrhea, Reports nausea, Denies odynophagia, Denies vomiting and Denies hematemesis Skin/Breast Denies pruritus, Denies lesions, Denies rash and Denies jaundice Neuro Reports Normal hearing present, Denies Abnormal speech present and Reports headache(s) Endo Denies fatigue Aller/Immun Denies throat swelling and Denies tongue swelling Physical Exam Vital Signs: Last Vital Signs Pulse 76 08/26/24 11:15 BP 152/74 H 08/26/24 11:15 BMI result Body Mass Index 28.2 Const General: cooperative, no acute distress, well developed and well groomed Nutritional Appearance: average body habitus and well nourished Orientation/consciousness: oriented to person, oriented to place and oriented to time Limitations: No language barrier HEENT Head: Yes normocephalic and Yes atraumatic Eyes General: appearance normal, both eyes and all related structures Pupils: Equal, round and reactive pupils present Neck Neck: Yes normal visual inspection and Yes no lymphadenopathy Thyroid: Thyroid normal Resp Effort & Inspection: normal respiratory effort and able to speak in complete sentences Auscultation: clear to auscultation bilaterally Cardio Rate: regular rate Rhythm: regular rhythm Heart sounds: Normal, physiologic split S2 sound present Peripheral pulses: radial pulses present and posterior tibial pulses present GI Inspection: Yes distended, No Abdominal panniculus present and Yes obesity Palpation (GI): Soft to palpation, Tenderness to palpation present (GI) periumbilically, no guarding, not rigid and No hepatosplenomegaly present Percussion: Yes normal to percussion Auscultation: normal bowel sounds Rectal Exam - Female: deferred Skin General skin exam: no rashes or lesions noted, turgor normal, skin not dry, no jaundice, No spider nevi and no striae Rashes: no rashes Nails: normal Neuro General: oriented to person, oriented to place and oriented to time Cranial nerves: Yes Equal, round and reactive pupils present and Yes Normal hearing present Speech: No Abnormal speech present Extrem General: Yes normal to inspection, No clubbing, No cyanosis and No edema Psych Appearance: grossly normal and well kempt Mental Status: mental status grossly normal Speech and movement: Normal speech and movement present Affect: normal affect Attitude: cooperative Thought process: Normal thought process present and not confabulating Thought content: Normal thought content present Insight: Limited insight present (Psych) Judgement: Limited judgement present (Psych) Assessment & Plan Assessment & Plan (1) GERD (gastroesophageal reflux disease): Comment: Resolved with celiac diet Code(s): K21.9 - Gastro-esophageal reflux disease without esophagitis Category: Medical (2) Chronic idiopathic constipation: Comment: Resolve when she follows her celiac diet Code(s): K59.04 - Chronic idiopathic constipation Category: Medical (3) Tubular adenoma of colon: Comment: 2015 scope=TA, 2022 scope equals TA repeat 3 years Code(s): D12.6 - Benign neoplasm of colon, unspecified Category: Medical (4) Celiac disease: Code(s): K90.0 - Celiac disease Category: Medical (5) Dysphagia: Code(s): R13.10 - Dysphagia, unspecified Category: Medical Plan She is quite frustrated because her migraines have been much worse recently. Also, she is having worst trouble with her GI symptoms initially it was severe epigastric pain with eating. Now it has spread over the entirety of the abdomen with a great deal of bloating. Her constipation continues to be severe and she is only moving her bowels every few days and then when she does it will be followed by softer stools and diarrhea after very hard stools initially. She is only using the Linzess at 145 micro g when she feels very backed up because if she takes it then she can not go out because of frequency of stooling and watery stools. I think we really need to get her on a lower dose and have her moving her bowels somewhat every day to get away from this yellow you affective very hard stools followed by diarrhea that probably is enabling gas trapping and some of the cramping and irritability of her bowels. I explained this to her and she is willing to try the Linzess at 72 micro g on a daily basis or at least a more frequent basis. If this is too strong and cause a similar problems then will probably back off to something like Amitiza which we can titrate to a lower level. She also has Colace and bisacodyl at her disposal. She has also developed dysphagia with things sticking just above the sternal notch and this is causing her not to take her Lipitor and her magnesium pills. We will get an EGD and have her put on a call list for this since she wants it julissa which is reasonable. Will also get an x-ray to assess her for stool burden a lab to assess her thyroid and TTE GA to see how well she has been at avoiding gluten. She does have celiac and may have a constipation variant of this and she was educated as such. She admits it is difficult to follow the celiac diet because it is quite expensive and I am uncertain how much this is contributing to her overall symptoms. Also her migraines have been much worse and I am uncertain if this is part of the total presentation or whether this is a separate issue. She is on multiple migraine medications which is also frustrating for her because she has daily pain despite being adherent to them. We discussed the possible role of her G LP 1 inhibitor but it does not seem that Trulicity is as strongly associated with headaches as is Ozempic. Return office visit in 3 weeks to go over her labs and see how she is doing on the new regimen with the lower dose Linzess. Orders: Orders Transglutaminase Ab IgG 08/26/24 K90.0 - Celiac disease EGD - GI Use Only 08/26/24 R13.10 - Dysphagia, unspecified XR abdomen w decubitus 08/26/24 R13.10 - Dysphagia, unspecified TSH reflex Free T4 08/26/24 K59.04 - Chronic idiopathic constipation Transglutaminase IgA 08/26/24 K90.0 - Celiac disease [place] barium swallow 08/26/24 R13.10 - Dysphagia, unspecified Medications: New linaclotide (Linzess) 72 mcg PO QAM 30 caps 6RF K59.04 - Chronic idiopathic constipation linaclotide (Linzess) 72 mcg PO QAM 30 caps 6RF K59.04 - Chronic idiopathic constipation Discontinued prednisone Discontinued Reason: Doctor's Order 40 mg (2 x 20 mg) PO DAILY 5 days 10 tabs 0RF G43.901 - Migraine, unspecified, not intractable, with status migrainosus linaclotide Take first thing in the morning with a full glass of water. Discontinued Reason: Doctor's Order 145 mcg PO QAM 30 caps 3RF K58.1 - Irritable bowel syndrome with constipation Coding Level of Care Code Est Pt Level 3 (99610) Diagnoses GERD (gastroesophageal reflux disease) K21.9 Chronic idiopathic constipation K59.04 Tubular adenoma of colon D12.6 Celiac disease K90.0 Dysphagia R13.10
== END 2024-08-26 12:52 | disposition home or self-care (01) ==
LOC: HO.HGI 11:03
PROVIDERS: PCP General Practice; Visit Provider Nurse Practitioner
DX: K90.0 Celiac disease (principal); K21.9 Gastro-esophageal reflux disease without esophagitis; D12.6 Benign neoplasm of colon, unspecified; R13.10 Dysphagia, unspecified
CPT/HCPCS: 99213

== ENCOUNTER 2024-08-26 11:03 | Outpatient (REF) | payer OTHER, SELFPAY ==
--- NOTE | ~2024-08-26 | XR_ITS ---
EXAMINATION: XR ABDOMEN WITH DECUBITUS CLINICAL INDICATION: Dysphagia, unspecified R13.10. COMPARISON: XR Abdomen with decubitus 11/16/2021 TECHNIQUE: 3 views of abdomen with decubitus. FINDINGS: The bowel gas pattern is within normal limits, with no evidence of ileus or obstruction. Redemonstrated is surgical clips in the right upper quadrant from prior cholecystectomy. Lung bases are clear. No suspicious bony lesion seen. . XR/XR abdomen w decubitus IMPRESSION: Nonobstructive bowel gas pattern. Study is assigned/presented for dictation on Oct 29, 2024 Electronically signed by: Lamberto Guzmán MD 10/29/2024 11:57 AM EST
[2024-08-30 10:43] LABS: Transglutaminase Ab IgG 5.2 U/mL; Transglutaminase IgA 134.2 U/mL
== END 2024-08-26 11:04 | disposition home or self-care (01) ==
LOC: HO.LAB 11:03
PROVIDERS: PCP General Practice; Visit Provider Nurse Practitioner
DX: K90.0 Celiac disease (principal); R13.10 Dysphagia, unspecified; Z86.0101 Personal history of adenomatous and serrated colon polyps
CPT/HCPCS: 36415; 74021; 84443; 86364; 99212

== ENCOUNTER 2024-08-31 13:22 | Outpatient (REF) | payer OTHER, SELFPAY ==
--- NOTE | ~2024-08-31 | MM_ITS ---
EXAMINATION: MM DIAGNOSTIC DIGITAL BREAST TOMOSYNTHESIS, BILATERAL CLINICAL INFORMATION: Diagnostic exam; focal asymmetry left upper outer breast middle depth. Focal asymmetry upper central breast middle depth. Asymmetry lateral right breast posterior depth cc view. Asymmetry superior breast anterior to middle depth on the MLO view. COMPARISON: Mammography: 07/01/2024. Exams dating back to 2019. TECHNIQUE: Digital breast tomosynthesis is performed in the following views: Full field 3-D bilateral CC rolled medial and rolled lateral views, bilateral 3-D spot compression cc views and MLO views. Computer-aided diagnosis was used for this study. FINDINGS: The breasts are heterogeneously dense, which may obscure small masses (ACR BI-RADS breast composition Category c). Bilateral asymmetries and focal asymmetries do not persist on spot compression views and rolled views of either breast. There are no persistent findings suggestive of malignancy. Findings are consistent with superimposition artifact of normal overlapping tissues. In retrospect, the appearance is identical to exams dating back to 2019, and 2019. MM/MM tomosynthesis added view BI IMPRESSION: -There are no findings suspicious for malignancy in either breast. -Asymmetries do not persist bilaterally, and are consistent with superimposition artifact of normal overlapping breast tissues. -Recommend the patient resume routine annual screening. ASSESSMENT: BI-RADS BI-RADS 1 - Negative RECOMMENDATION: 1 year F/U Results were provided to the patient at time of visit by the technologist. This patient's information was entered into a reminder system with a target due date for their next mammogram. Electronically signed by: Edouard Allred MD 08/31/2024 02:34 PM LEONIE
== END 2024-08-31 13:23 | disposition home or self-care (01) ==
LOC: HO.MAMMO 13:22
PROVIDERS: PCP General Practice; Visit Provider General Practice
DX: N64.89 Other specified disorders of breast (principal)
CPT/HCPCS: 77062; 77066

== ENCOUNTER → 2024-08-31 13:30 | Outpatient (BNV) | payer OTHER, SELFPAY | PROVIDERS: PCP General Practice; Visit Provider Radiology Diagnostic Radiology | DX: R92.1 Mammographic calcification found on diagnostic imaging of breast (principal) | CPT/HCPCS: 77066 ==

== ENCOUNTER 2024-09-04 19:49 | Emergency (ER) | payer OTHER, SELFPAY ==
--- NOTE | ~2024-09-04 | XR_ITS ---
EXAMINATION: XR CHEST CLINICAL INFORMATION: Congestion COMPARISON: 2 view chest 08/11/2010. (Report only) TECHNIQUE: 2 views of the chest were obtained. FINDINGS: No significant abnormality is noted involving the heart, lungs, mediastinum, bony thorax or soft tissues. ACDF hardware is noted. Surgical clips are present in the right upper quadrant XR/XR chest 2V IMPRESSION: Unremarkable examination. Electronically signed by: Jose Alfredo Nick MD 09/04/2024 09:39 PM EST
--- NOTE | 2024-09-04 20:23 | ED.GENADULT ---
HPI - General Adult General Chief complaint: Upper Respiratory Symptoms Stated complaint: head cold since /now left ear ache Time Seen by Provider: 09/04/24 22:06 Source: patient Mode of arrival: ambulatory Limitations: no limitations History of Present Illness ED Provider: angi CHAUDHRY narrative: Patient is smoker complaining of sore throat cough left earache for last 4 days low-grade fever does have cough other family member also sick prior to my evaluation patient has a chest x-ray done which was negative COVID flu RSV strep also negative Related Data Home Medications ?Medication ?Instructions ?Recorded ?Confirmed atenolol 50 mg tablet 75 mg PO DAILY 08/08/20 07/30/24 cholecalciferol (vitamin D3) 25 25 mcg PO DAILY 08/08/20 07/30/24 mcg (1,000 unit) capsule (Vitamin D3) hydrochlorothiazide 25 mg tablet 25 mg PO DAILY 08/08/20 07/30/24 lisinopril 20 mg tablet 20 mg PO DAILY 08/08/20 07/30/24 acetaminophen 650 mg 650 mg PO Q8H PRN Pain 03/21/22 07/30/24 tablet,extended release (8 Hour Pain Reliever) dapagliflozin propanediol 5 mg 5 mg PO DAILY 03/21/22 07/30/24 tablet (Farxiga) alcohol swabs (BD Alcohol Swabs) 1 pad topical BID 08/21/22 07/30/24 glipizide 10 mg tablet, extended 20 mg PO DAILY 08/21/22 07/30/24 release 24 hr lancets 28 gauge (FreeStyle #100 ea 08/21/22 07/30/24 Lancets) melatonin 5 mg tablet 5 mg PO BEDTIME insomnia 08/21/22 07/30/24 dulaglutide 3 mg/0.5 mL 3 mg subcut QWEEK 08/26/24 subcutaneous pen injector (Trulicity) Previous Rx's ?Medication ?Instructions ?Recorded galcanezumab-gnlm 120 mg/mL 120 mg subcut ONCE 30 days #1 mL 11/27/23 subcutaneous pen injector (Emgality Pen) atogepant 60 mg tablet (Qulipta) 60 mg PO DAILY 30 days #30 tabs 02/26/24 bisacodyl 5 mg tablet,delayed 10 mg (2 x 5 mg) PO BEDTIME 30 05/16/24 release (Dulcolax (bisacodyl)) days #60 tabs docusate sodium 100 mg capsule 100 mg PO BID PRN Constipation #60 03/04/24 caps famotidine 40 mg tablet (Pepcid) 40 mg PO BEDTIME #30 tabs 03/04/24 atorvastatin 40 mg tablet 40 mg PO BEDTIME #90 tabs 03/24/24 clonazepam 0.5 mg tablet 0.5 mg PO BEDTIME 30 days #30 tabs 07/01/24 diclofenac potassium 50 mg tablet 50 mg PO BID PRN headache 30 days 07/30/24 #60 tabs metoclopramide HCl 5 mg tablet 5 - 10 mg (1 - 2 x 5 mg) PO Q4-6H 07/30/24 PRN nausea or migraine 30 days #60 tabs rizatriptan 10 mg tablet 5 - 10 mg (0.5 - 1 x 10 mg) PO Q2H 07/30/24 PRN migraine headache 21 days #12 tabs linaclotide 72 mcg capsule 72 mcg PO QAM #30 caps 08/26/24 (Linzess) amoxicillin 875 mg-potassium 1 tab PO BID #20 tabs 09/04/24 clavulanate 125 mg tablet benzonatate 200 mg capsule 200 mg PO TID PRN cough #20 caps 09/04/24 Allergies Allergy/AdvReac Type Severity Reaction Status Date / Time codeine AdvReac Intermediate vertigo, Verified 09/04/24 20:28 nausea Review of Systems Review of Systems: Yes all other systems are reviewed and are negative PMFSH Past Medical History Medical History Bleeding hemorrhoids Nausea Epigastric pain Hand pain, right Chronic migraine without aura Carpal tunnel syndrome of left wrist Pain of left thumb Numbness and tingling in left hand Carpal tunnel syndrome of right wrist Right arm numbness Arthritis of right shoulder region GERD (gastroesophageal reflux disease) Spondylosis of lumbar spine Diabetes High cholesterol HTN (hypertension) Back pain, chronic Migraines Surgical History S/P carpal tunnel release History of fusion of cervical spine History of carpal tunnel release History of hemorrhoidectomy (~04/01/23) History of esophagogastroduodenoscopy (EGD) Hx of fusion of cervical spine Hx of colonoscopy Hx of cholecystectomy Hx of tubal ligation Family History Family History Father History of heart attack Mother Hx of type 1 diabetes mellitus Family history of high blood pressure Social History Social History Alcohol intake: never Patient Tobacco Use Status: Current everyday Tobacco user Tobacco use type: Cigarette Cigarette Packs Per Day: 0.5 Cigarettes Per Day: 10 Years Smoked: 45 Do you have a plan to hurt others: No Plan Current occupational status: employed 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 Oriented X3. No acute distress. Eyes: PERRLA, No Nystagmus ENT: Pharynx erythematous. Oral Mucosa moist left tympanic membrane inflamed right tympanic membrane normal Neck: Normal inspection. Neck supple. CVS: Normal heart rate and rhythm. Pulses normal. Respiratory: No respiratory distress. Equal air entry bilateral, no wheezing/rales/rhonchi prolonged expiration Abdomen: Soft and nontender. Bowel sounds are present, no mass palpable, no CVA tenderness Skin: Skin warm and dry. Normal skin color. Normal skin turgor. Extremities: No lower extremity edema. No calf tenderness Neuro: Oriented X 3. Course Course Course Narrative: This is an RME: Additional HPI, ROS, PE not included below will be deferred to primary provider. RME assessment and note performed by: Lin Colon PA-C This is a 88-omen-pyt-female, with a hx of GERD, DM, HTN, HLD, migraines, and celiac disease, who presents to the ER with complaints of congestion x 2 days. Reports that she also has had left ear pain since today. No CP or SOB. Plan: Viral swabs, strep swab, chest x-ray Medical Decision Making Lab Data MDM Lab Attestation statement: I reviewed the patient's lab results. Labs: Lab Results 09/04/24 Range/Units 20:31 Influenza Type A (PCR) NEGATIVE (Negative) Influenza Type B (PCR) NEGATIVE (Negative) RSV RNA Qual (PCR) NEGATIVE (Negative) SARS-CoV-2 RNA (RT-PCR) NEGATIVE (Negative) S. pyogenes GrpA [place] Negative (Negative) Independent Interpretation I performed an independent interpretation of an: Plain X-Ray Interpretation: NAD Radiology Impression Discussion of test interpretation with radiology: I have reviewed the radiologist's reading. Discharge Plan Discharge Clinical Impression: Pharyngitis, Otitis media Patient Disposition: Home, Self-Care Instructions: Pharyngitis (ED), Ear Infection (ED) Additional Instructions: Take antibiotic as prescribed Cough drops as prescribed Your COVID flu RSV strep negative Your chest x-ray negative for pneumonia Take Tylenol Motrin for fever Prescriptions: New benzonatate 200 mg capsule 200 mg PO TID PRN (Reason: cough) Qty: 20 0RF amoxicillin-pot clavulanate 875-125 mg tablet 1 tab PO BID Qty: 20 0RF No Action Emgality Pen 120 mg/mL pen injector 120 mg subcut ONCE 30 Days Qty: 1 11RF Qulipta 60 mg tablet 60 mg PO DAILY 30 Days Qty: 30 6RF atorvastatin 40 mg tablet 40 mg PO BEDTIME Qty: 90 3RF clonazepam 0.5 mg tablet 0.5 mg PO BEDTIME 30 Days Qty: 30 3RF lisinopril 20 mg Tablet 20 mg PO DAILY hydrochlorothiazide 25 mg Tablet 25 mg PO DAILY atenolol 50 mg Tablet 75 mg PO DAILY cholecalciferol (vitamin D3) [Vitamin D3] 25 mcg (1,000 unit) Capsule 25 mcg PO DAILY acetaminophen [8 Hour Pain Reliever] 650 mg tablet extended release 650 mg PO Q8H PRN (Reason: Pain) Farxiga 5 mg tablet 5 mg PO DAILY glipizide 10 mg tablet extended release 24hr 20 mg PO DAILY alcohol swabs [BD Alcohol Swabs] Pads, Medicated 1 pad topical BID (DME) lancets [FreeStyle Lancets] 28 gauge misc See Rx Instructions .ROUTE BID Qty: 100 Rx Instructions: As directed melatonin 5 mg tablet 5 mg PO BEDTIME famotidine [Pepcid] 40 mg tablet 40 mg PO BEDTIME Qty: 30 6RF bisacodyl [Dulcolax (bisacodyl)] 5 mg tablet,delayed release (DR/EC) 10 mg PO BEDTIME 30 Days Qty: 60 6RF docusate sodium 100 mg capsule 100 mg PO BID PRN (Reason: Constipation) Qty: 60 6RF rizatriptan 10 mg tablet 5 - 10 mg PO Q2H PRN (Reason: migraine headache) 21 Days Qty: 12 3RF Rx Instructions: max 2 tabs per day or 6 tabs per week. May take w/ Diclofenac. metoclopramide HCl 5 mg tablet 5 - 10 mg PO Q4-6H PRN (Reason: nausea or migraine) 30 Days Qty: 60 1RF diclofenac potassium 50 mg tablet 50 mg PO BID PRN (Reason: headache) 30 Days Qty: 60 4RF Trulicity 3 mg/0.5 mL pen injector 3 mg subcut QWEEK Linzess 72 mcg capsule 72 mcg PO QAM Qty: 30 6RF Print Language: [place]ian
[2024-09-04 20:25] VITALS: BP 136/73; PULSE 73; RESP 20; TEMP 36.8; O2SAT 97; BMI 28.4
[2024-09-04 21:19] LABS: IDNOW Serial# 08D9AD1C; Strep A Nucleic Acid Negative (Negative)
[2024-09-04 21:57] LABS: Influenza A PCR NEGATIVE (Negative); Influenza B PCR NEGATIVE (Negative); Resp Syncy Virus RNA Qual PCR NEGATIVE (Negative); SARS COV2 PCR INHOUSE NEGATIVE (Negative)
[2024-09-04] MEDS: Amoxicillin/Potassium Clav 875 MG TABLET PO (22:23)
[2024-09-04] MEDS: Benzonatate 100 MG CAPSULE 200 MG PO (22:23)
[2024-09-04 22:30] VITALS: BP 136/73; PULSE 73; RESP 20; TEMP 36.8; O2SAT 97
== END 2024-09-04 22:42 | disposition home or self-care (01) ==
LOC: HO.ED 22:35
PROVIDERS: Physician Assistant Medical; Emergency Provider Internal Medicine; PCP General Practice
DX: H66.92 Otitis media, unspecified, left ear (principal); J02.9 Acute pharyngitis, unspecified; Z03.818 Encounter for observation for suspected exposure to other biological agents ruled out; R05.9 Cough, unspecified; F17.210 Nicotine dependence, cigarettes, uncomplicated; E11.9 Type 2 diabetes mellitus without complications; I10 Essential (primary) hypertension; E78.5 Hyperlipidemia, unspecified; Z79.85 Long-term (current) use of injectable non-insulin antidiabetic drugs; Z79.899 Other long term (current) drug therapy
CPT/HCPCS: 0241U; 71046; 87651; 99283; 99284

== ENCOUNTER 2024-09-15 11:21 | Outpatient (AMB) | payer OTHER, SELFPAY ==
--- NOTE | 2024-09-15 11:27 | MHC.OFFVIS ---
Vital Signs 09/15/24 11:57 Height 5 ft 1 in Weight 149 lb 0.52 oz BMI 28.2 BP 126/71 Blood Pressure Location Rt brachial Position Sitting Pulse 72 Intake Visit Reasons: 3 wks CIC, abd pain, dysphagia Intake Note: Patient in office today in follow up of epigastric pain. CC: Patient reports that she is doing better from epigastric pain and bloating since she and constipation with Linzess. Public Relations Assistant Required: No Accompanied by: Self / Same As Patient Allergies codeine Adverse Reaction (Intermediate, Verified 09/15/24 12:06) vertigo, nausea HPI HPI 3 wks CIC, abd pain, dysphagia: Details: Assessment & Plan (1) GERD (gastroesophageal reflux disease): Comment: Resolved with celiac diet Code(s): K21.9 - Gastro-esophageal reflux disease without esophagitis Category: Medical (2) Chronic idiopathic constipation: Code(s): K59.04 - Chronic idiopathic constipation Category: Medical (3) Tubular adenoma of colon: Comment: 2015 scope=TA, 2022 scope equals TA repeat 3 years Code(s): D12.6 - Benign neoplasm of colon, unspecified Category: Medical (4) Celiac disease: Code(s): K90.0 - Celiac disease Category: Medical (5) Dysphagia: Code(s): R13.10 - Dysphagia, unspecified Category: Medical Plan She is quite frustrated because her migraines have been much worse recently. Also, she is having worst trouble with her GI symptoms initially it was severe epigastric pain with eating. Now it has spread over the entirety of the abdomen with a great deal of bloating. Her constipation continues to be severe and she is only moving her bowels every few days and then when she does it will be followed by softer stools and diarrhea after very hard stools initially. She is only using the Linzess at 145 micro g when she feels very backed up because if she takes it then she can not go out because of frequency of stooling and watery stools. I think we really need to get her on a lower dose and have her moving her bowels somewhat every day to get away from this yellow you affective very hard stools followed by diarrhea that probably is enabling gas trapping and some of the cramping and irritability of her bowels. I explained this to her and she is willing to try the Linzess at 72 micro g on a daily basis or at least a more frequent basis. If this is too strong and cause a similar problems then will probably back off to something like Amitiza which we can titrate to a lower level. She also has Colace and bisacodyl at her disposal. She has also developed dysphagia with things sticking just above the sternal notch and this is causing her not to take her Lipitor and her magnesium pills. We will get an EGD and have her put on a call list for this since she wants it julissa which is reasonable. Will also get an x-ray to assess her for stool burden a lab to assess her thyroid and TTE GA to see how well she has been at avoiding gluten. She does have celiac and may have a constipation variant of this and she was educated as such. She admits it is difficult to follow the celiac diet because it is quite expensive and I am uncertain how much this is contributing to her overall symptoms. Also her migraines have been much worse and I am uncertain if this is part of the total presentation or whether this is a separate issue. She is on multiple migraine medications which is also frustrating for her because she has daily pain despite being adherent to them. We discussed the possible role of her G LP 1 inhibitor but it does not seem that Trulicity is as strongly associated with headaches as is Ozempic. Return office visit in 3 weeks to go over her labs and see how she is doing on the new regimen with the lower dose Linzess. Orders: Orders Transglutaminase Ab IgG Today K90.0 - Celiac disease EGD - GI Use Only Today R13.10 - Dysphagia, unspecified XR abdomen w decubitus Today R13.10 - Dysphagia, unspecified TSH reflex Free T4 Today K59.04 - Chronic idiopathic constipation Transglutaminase IgA Today K90.0 - Celiac disease FL barium swallow Today R13.10 - Dysphagia, unspecified Medications: New linaclotide (Linzess) 72 mcg PO QAM 30 caps 6RF K59.04 - Chronic idiopathic constipation Discontinued prednisone Discontinued Reason: Doctor's Order 40 mg (2 x 20 mg) PO DAILY 5 days 10 tabs 0RF G43.901 - Migraine, unspecified, not intractable, with status migrainosus linaclotide (Linzess) Take first thing in the morning with a full glass of water. Discontinued Reason: Doctor's Order 145 mcg PO QAM 30 caps 3RF K58.1 - Irritable bowel syndrome with constipation LABS Laboratory Tests 08/26/24 12:54 TSH 1.20 Tiss Transglutamin IgA 134.2 H XR ABD not read BARIUM SWALLOW 11/16/2024 EGD BIOPSY TODAYS VISIT She has changed her seasoning and is trying to buy only gluten free things and is doing better. Has not needed Linzess as is moving her bowels well and has less bloating. Pain is improved. She still have occasional feelings of incomplete evacuation and I suggest that we use senna instead of Linzess since that caused her severe diarrhea when she used it subsequent to changing her celiac diet. She continues on her Colace. She also continues on her famotidine. ROV after barium swallow. [facility] Medical History Bleeding hemorrhoids Nausea Epigastric pain Hand pain, right Chronic migraine without aura Carpal tunnel syndrome of left wrist Pain of left thumb Numbness and tingling in left hand Carpal tunnel syndrome of right wrist Right arm numbness Arthritis of right shoulder region GERD (gastroesophageal reflux disease) Spondylosis of lumbar spine Diabetes High cholesterol HTN (hypertension) Back pain, chronic Migraines Surgical History S/P carpal tunnel release History of fusion of cervical spine History of carpal tunnel release History of hemorrhoidectomy (~04/01/23) History of esophagogastroduodenoscopy (EGD) Hx of fusion of cervical spine Hx of colonoscopy Hx of cholecystectomy Hx of tubal ligation Family History Father History of heart attack Mother Hx of type 1 diabetes mellitus Family history of high blood pressure Social History Alcohol intake: never Patient Tobacco Use Status: Current everyday Tobacco user Tobacco use type: Cigarette Cigarette Packs Per Day: 0.5 Cigarettes Per Day: 10 Years Smoked: 45 Current occupational status: employed 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 Review of Systems Const Denies fatigue, Denies fever(s), Denies night sweats, Denies poor appetite and Denies weight loss ENT Reports Normal hearing present, Denies dental pain, Reports dysphagia, Denies hearing loss, Denies mouth pain, Denies odynophagia, Denies throat swelling, Denies tongue swelling and Reports other (Dentition adequate) Card Reports no additional complaints Resp Reports no additional complaints GI Details: Denies abdominal pain, Denies melena, Reports bloating, Denies hematochezia, Reports constipation, Denies GI cramping, Reports dysphagia, Denies excessive flatus, Denies early satiety, Reports heartburn, Denies diarrhea, Denies nausea, Denies odynophagia, Denies vomiting and Denies hematemesis Skin/Breast Denies pruritus, Denies lesions, Denies rash and Denies jaundice Neuro Reports Normal hearing present and Denies Abnormal speech present Endo Denies fatigue Aller/Immun Denies throat swelling and Denies tongue swelling Physical Exam Vital Signs: Last Vital Signs Pulse 72 09/15/24 11:57 BP 126/71 09/15/24 11:57 BMI result Body Mass Index 28.2 Const General: cooperative, no acute distress, well developed and well groomed Nutritional Appearance: average body habitus and well nourished Orientation/consciousness: oriented to person, oriented to place and oriented to time Limitations: No language barrier HEENT Head: Yes normocephalic and Yes atraumatic Eyes General: appearance normal, both eyes and all related structures Pupils: Equal, round and reactive pupils present Neck Neck: Yes normal visual inspection and Yes no lymphadenopathy Thyroid: Thyroid normal Resp Effort & Inspection: normal respiratory effort and able to speak in complete sentences Auscultation: clear to auscultation bilaterally Cardio Rate: regular rate Rhythm: regular rhythm Heart sounds: Normal, physiologic split S2 sound present Peripheral pulses: radial pulses present and posterior tibial pulses present GI Inspection: No distended and No Abdominal panniculus present Palpation (GI): Soft to palpation, nontender, no guarding, not rigid and No hepatosplenomegaly present Percussion: Yes normal to percussion Auscultation: normal bowel sounds Rectal Exam - Female: deferred Skin General skin exam: no rashes or lesions noted, turgor normal, skin not dry, no jaundice, No spider nevi and no striae Rashes: no rashes Nails: normal Neuro General: oriented to person, oriented to place and oriented to time Cranial nerves: Yes Equal, round and reactive pupils present and Yes Normal hearing present Speech: No Abnormal speech present Extrem General: Yes normal to inspection, No clubbing, No cyanosis and No edema Psych Appearance: grossly normal and well kempt Mental Status: mental status grossly normal Speech and movement: Normal speech and movement present Affect: normal affect Attitude: cooperative Thought process: Normal thought process present and not confabulating Thought content: Normal thought content present Insight: Fair insight present (Psych) and Limited insight present (Psych) Judgement: Fair judgement present (Psych) and Limited judgement present (Psych) Results Reviewed Results Reviewed: Laboratory Tests 08/26/24 12:54 TSH 1.20 Tiss Transglutamin IgA 134.2 H Assessment & Plan Assessment & Plan (1) Celiac disease: Code(s): K90.0 - Celiac disease Category: Medical (2) GERD (gastroesophageal reflux disease): Comment: Resolved with celiac diet Code(s): K21.9 - Gastro-esophageal reflux disease without esophagitis Category: Medical (3) Chronic idiopathic constipation: Comment: Resolve when she follows her celiac diet Code(s): K59.04 - Chronic idiopathic constipation Category: Medical (4) Dysphagia: Code(s): R13.10 - Dysphagia, unspecified Category: Medical Plan She has changed her seasoning and is trying to buy only gluten free things and is doing better. Has not needed Linzess as is moving her bowels well and has less bloating. Pain is improved. She still have occasional feelings of incomplete evacuation and I suggest that we use senna instead of Linzess since that caused her severe diarrhea when she used it subsequent to changing her celiac diet. She continues on her Colace. She also continues on her famotidine. ROV after barium swallow. XR ABD not read BARIUM SWALLOW 11/16/2024 EGD BIOPSY Medications: New sennosides (Senna Laxative) 17.2 mg (2 x 8.6 mg) PO BEDTIME PRN 60 tabs 6RF constipation Refilled famotidine (Pepcid) 40 mg PO BEDTIME 30 tabs 6RF K21.9 - Gastro-esophageal reflux disease without esophagitis docusate sodium 100 mg PO BID PRN 60 caps 6RF Constipation Discontinued linaclotide (Linzess) Discontinued Reason: Doctor's Order 72 mcg PO QAM 30 caps 6RF K59.04 - Chronic idiopathic constipation bisacodyl (Dulcolax (bisacodyl)) Discontinued Reason: Doctor's Order 10 mg (2 x 5 mg) PO BEDTIME 30 days 60 tabs 6RF K59.04 - Chronic idiopathic constipation Coding Level of Care Code Est Pt Level 3 (30673) Diagnoses Celiac disease K90.0 GERD (gastroesophageal reflux disease) K21.9 Chronic idiopathic constipation K59.04 Dysphagia R13.10
[2024-09-15 11:57] VITALS: BP 126/71; PULSE 72; BMI 28.2
== END 2024-09-15 12:58 | disposition home or self-care (01) ==
PROVIDERS: PCP General Practice; Visit Provider Nurse Practitioner
DX: K90.0 Celiac disease (principal); K21.9 Gastro-esophageal reflux disease without esophagitis; R13.10 Dysphagia, unspecified
CPT/HCPCS: 99213

== ENCOUNTER → 2024-09-15 11:21 | Outpatient (BNVA) | payer OTHER, SELFPAY | PROVIDERS: PCP General Practice; Visit Provider Nurse Practitioner | DX: K90.0 Celiac disease (principal); K21.9 Gastro-esophageal reflux disease without esophagitis; K59.04 Chronic idiopathic constipation; R13.10 Dysphagia, unspecified | CPT/HCPCS: 99212 ==

== ENCOUNTER 2024-11-10 09:49 | Outpatient (AMB) | payer OTHER, SELFPAY ==
[2024-11-10 10:00] VITALS: BP 126/80; PULSE 67; O2SAT 99; BMI 28.4
--- NOTE | 2024-11-10 10:00 | A.OFFVIS_ITS ---
Vital Signs 11/10/24 10:00 Height 5 ft 1 in Weight 150 lb 2 oz BMI 28.4 BP 126/80 Blood Pressure Location Rt brachial Position Sitting Pulse 67 Pulse Source Pulse Oximeter Pulse Oximetry (%) 99 Oxygen Delivery Method Room Air Intake Visit Reasons: 6 month F/U Allergies codeine Adverse Reaction (Intermediate, Verified 11/10/24 10:03) vertigo, nausea Medication List - Last Reconciled 11/10/24 by MAURO Larios acetaminophen ER (8 Hour Pain Reliever) 650 mg PO Q8H PRN alcohol swabs (BD Alcohol Swabs) 1 pad topical BID amoxicillin-pot clavulanate 875-125 mg 1 tab PO BID atenolol 75 mg PO DAILY atogepant (Qulipta) 60 mg PO DAILY 30 days atorvastatin 40 mg PO BEDTIME benzonatate 200 mg PO TID PRN cholecalciferol (vitamin D3) (Vitamin D3) 25 mcg PO DAILY clonazepam 0.5 mg PO BEDTIME 30 days dapagliflozin propanediol (Farxiga) 5 mg PO DAILY diclofenac potassium 50 mg PO BID PRN 30 days docusate sodium 100 mg PO BID PRN dulaglutide (Trulicity) 3 mg subcut QWEEK famotidine (Pepcid) 40 mg PO BEDTIME galcanezumab-gnlm (Emgality Pen) 120 mg subcut ONCE 30 days glipizide ER 20 mg PO DAILY hydrochlorothiazide 25 mg PO DAILY lancets (FreeStyle Lancets) As directed lisinopril 20 mg PO DAILY melatonin 5 mg PO BEDTIME metoclopramide HCl 5 - 10 mg (1 - 2 x 5 mg) PO Q4-6H PRN 30 days rizatriptan 5 - 10 mg (0.5 - 1 x 10 mg) PO Q2H PRN 30 days sennosides (Senna Laxative) 17.2 mg (2 x 8.6 mg) PO BEDTIME PRN HPI Comments Details: 69-yr-old female presents for f/u visit for migraine exacerbation. Pt denies any significant interval medical changes. Pt reports her migraines have been much better. Pt states she stopped using her typical food seasonings, now avoiding regular adobo and regular sazon, now is using no salt versions and saxena and turmeric. She has stopped frying food. She is also doing better about adhering to her gluten free diet. She is having less abdominal pain, but is still prone to some constipation and abd bloating. She is scheduled next week for a fluroscopy and then an endoscopy d/t having difficulty swallowing. She has just started senna qod to help her manage her constipation. She is having difficulty sleeping. Falls asleep around 5am, until 9am. But can easily doze off during the day/evening, but tries not to. She is not doing much physical activity- other than doing errands. Patient wonders if she should resume using CPAP. She has a history of mild sleep apnea with AHI 10 per hour. She also has restless leg symptoms, such as urge to move restlessness in the legs. She does have restlessness when in bed and restless sleep. Most recent TSH 1.2 WNL, ferritin 135 WNL. Patient states that Emgality has been very helpful. She may have a headache most nights, but it is no where as severe and as constant as before. Rizatriptan and Diclofenac are effective. Baseline headache characteristics: Severe, Throbbing pain usually in bilateral temples, sometimes the top of her head or mid-frontal a/w Photophobia, phonophobia, nausea, worsening external dizziness, brain fog, worsening blurry vision, neck tightness, top of head allodynia. [facility] Medical History Bleeding hemorrhoids Nausea Epigastric pain Hand pain, right Chronic migraine without aura Carpal tunnel syndrome of left wrist Pain of left thumb Numbness and tingling in left hand Carpal tunnel syndrome of right wrist Right arm numbness Arthritis of right shoulder region GERD (gastroesophageal reflux disease) Spondylosis of lumbar spine Diabetes High cholesterol HTN (hypertension) Back pain, chronic Migraines Surgical History S/P carpal tunnel release History of fusion of cervical spine History of carpal tunnel release History of hemorrhoidectomy (~04/01/23) History of esophagogastroduodenoscopy (EGD) Hx of fusion of cervical spine Hx of colonoscopy Hx of cholecystectomy Hx of tubal ligation Family History Father History of heart attack Mother Hx of type 1 diabetes mellitus Family history of high blood pressure Social History Alcohol intake: never Patient Tobacco Use Status: Current everyday Tobacco user Tobacco use type: Cigarette Cigarette Packs Per Day: 0.5 Cigarettes Per Day: 10 Years Smoked: 45 Current occupational status: employed 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 [employer] Physical Exam Vital Signs: Last Vital Signs Pulse 67 11/10/24 10:00 BP 126/80 11/10/24 10:00 Pulse Ox 99 11/10/24 10:00 Oxygen Delivery Method Room Air 11/10/24 10:00 BMI result Body Mass Index 28.4 Const General: cooperative and no acute distress Orientation/consciousness: patient oriented x3 Resp Effort & Inspection: normal respiratory effort and able to speak in complete sentences Neuro Other: Photophobic General: patient oriented x3 Cranial nerves: Yes CN's II-XII intact bilaterally Cognition (Neuro): normal cognition Psych Appearance: grossly normal Mental Status: mental status grossly normal Speech and movement: Normal speech and movement present Affect: normal affect Attitude: cooperative Assessment & Plan Assessment & Plan (1) Chronic migraine without aura: Comment: ? hypnic headache component Code(s): G43.709 - Chronic migraine without aura, not intractable, without status migrainosus Category: Medical (2) Restless leg syndrome: Code(s): G25.81 - Restless legs syndrome Category: Medical (3) SHUN (obstructive sleep apnea): Comment: AHI 6/hr Code(s): G47.33 - Obstructive sleep apnea (adult) (pediatric) Category: Medical (4) Sleep difficulties: Code(s): G47.9 - Sleep disorder, unspecified Category: Medical Plan For overall headache management: Continue optimizing good self-care, including but not limited to maintaining a healthy diet,? adequate fluid intake, adequate sleep, and engaging in regular physical activity. Applauded patient's efforts to improve her diet and be more adhering to a gluten free diet in setting of celiac disease. ? For acute headache treatment: Continue Rizatriptan 10mg tab, 1/2 - 1 tab (5-10mg) at onset of headache, may repeat in 2 hours. Max of 2 tabs (200mg) per 24 hours. May adjunct with Diclofenac 50mg bid as needed. Continue Diclofenac 50mg bid prn. May use metoclopramide 5-10mg po qid prn N/V and/or migraine rescue. Previous acute migraine medication trials: Nurtec- ineffective, Ubrelvy- ineffective. Fioricet- ineffective. Sumatriptan- ineffective. Acute migraine medication contraindications: none at this time. ? For headache prevention medication: Continue Qulipta (atogepant) 60 mg po qhs. Continue Emgality 120mg sc monthly. As pt typically has good clinical effect from concomitant use of Emgality and Qulipta- with greater than 50% reduction in overall migraine burden. Pt is currently on Atenolol for HTN. Previous migraine prevention medication trials: Gabapentin- ineffective, Amitriptyline- ineffective, Topiramate- ineffective, Botox x's 2 tx sessions- ineffective, bi-temporal trigger point injections- ineffective. Magnesium 400mg qhs- not tolerated. Riboflavin- ineffective. Baclofen 10-20mg qhs- not tolerated. Riboflavin 400mg- inefefctive Migraine prevention medication contraindications: Aimovig d/t h/o RLS and constipation. Future considerations- Caffeine qhs, [place]. ? For sleep and restless leg syndrome: Discussed that improving her sleep quality, would likely further benefit her chronic migraine management. * Reviewed simple strategies to optimize sleep hygiene * Patient may benefit from reading RLS patient education resources such as ?navigating life with restless leg syndrome? by Dr. Marie. * Discussed repeating HST, however I do not believe the patient would be able to use CPAP without managing her RLS and likely PLMS symptoms. * Discussed trialing gabapentin, however patient would like to finish her GI workup and read the above resources before starting a new medication. For now, continue Clonazepam 0.5mg po qhs. Previous trials- Amitriptyline 10-20mg qhs- did not help sleep or headaches. Pt would not be a candidate for Inspire, as her last sleep study showed mild SHUN. Future considerations- mandibular device. ? f/u in 3 months or sooner any new or worsening s/s. Medications: Changed From rizatriptan max 2 tabs per day or 6 tabs per week. May take w/ Diclofenac. 5 - 10 mg (0.5 - 1 x 10 mg) PO Q2H 21 days PRN 12 tabs 3RF migraine headache To rizatriptan max 2 tabs per day or 6 tabs per week. May take w/ Diclofenac. 5 - 10 mg (0.5 - 1 x 10 mg) PO Q2H PRN 12 tabs 6RF migraine headache 30 days Coding Level of Care Code Est Pt Level 4 (89754) Diagnoses Chronic migraine without aura G43.709 Restless leg syndrome G25.81 SHUN (obstructive sleep apnea) G47.33 Sleep difficulties G47.9
--- OUTSIDE RECORDS SUMMARY | 2024-11-10 10:39 | XMS_ITS | Encounter Summary ---
Author Organization [employer] Address [address] [place] [address] Care Team Providers Care Case Management Social Worker Name Role Phone Sima Kaur MD Primary Care Provider Reason for Visit * Reason Comments Med Refill Encounter Details Date Type Department Care Team (Late st Contact Info) Description 11/06/2024 Refill [facility] [address], [place] [phone] Sima Kaur MD [address], [place] [phone] Type 2 diabetes mellitus without complication, without long-term current use of insulin ([facility]) Social History Tobacco Use Types Packs/Day Years Used Date Smoking Tobacco: Every Day Cigarettes Passive Smoke Exposure: Current Smokeless Tobacco: Never Alcohol Use Standard Drinks/Week Comments Never 0 (1 standard drink = 0.6 oz pur e alcohol) Depression Answer Date Recorded Patient Health Questionnaire-9 Score 10 05/25/2024 Patient Health Questionnaire-9 Score 10 05/25/2024 Last PHQ-9: Questionnaire Data Not on file 0 05/25/2024 Housing Stability Answer Date Recorded What is your housing situation today? I have elizabeth anne 05/13/[address] you li ve. Do you have problems with any of the following? None of the above 05/13/2024 Food Insecurity Answer Date Recorded Within the past 12 months, y ou worried that your food would run out before you got money to buy more: Never True 05/13/2024 Within the past 12 months,th e food you bought just didn't last and you didn't have enough money to get more: Never True Transportation Answer Date Recorded In the past 12 months, has l ack of transportation kept you from medical appts, meetings, work or from getting things needed for daily living? Yes, it has kept me from medical appointments or getting medications. 05/25/2024 Utilities Answer Date Recorded In the past 12 months, has t he electric, gas, oil or water company threatened to shut off services in your home? No 05/13/2024 Depression Answer Date Recorded Patient Health Questionnaire-2 Score 6 05/25/2024 Internet Access Answer Date Recorded Internet Access Q1 Yes 06/20/2024 Internet Access Q2 Not on file 06/20/2024 Comments Unknown Sex and Gender Information Value Date Recorded Sex Assigned at Female 08/19/2022 10:15 AM EDT Legal Sex Female 10:15 AM EDT Gender Identity Female 08/19/2022 10:15 AM EDT Sexual Orientation Straight 08/19/2022 10 :15 AM EDT documented as of this encounter Plan of Treatment Not on file documented as of this encounter Visit Diagnoses Diagnosis Type 2 diabetes mellitus without complication, without long-term current use of insulin ([facility]) documented in this encounter Additional Health Concerns Assessment Noted Time PHQ-9 Depression Total Score: 10 024 11:02 AM EDT documented as of this encounter Care Teams Case Management Social Worker Relationship Specialty Start Date End Date Sima Kaur MD [address] [place] [id number] PCP - General Family Medicine 11/28/20 documented as of this encounter
--- OUTSIDE RECORDS SUMMARY | 2024-11-10 10:39 | XMS_ITS | Clinical Summary ---
Author Organization [employer] Address [address] [place] [address] Care Team Providers Care Rn [facility] Name Role Phone Sima Kaur MD Primary Care Provider [phone] Allergies Active Allergy Reactions Criticality Noted Date Comments Amoxicillin 04/27/2021 Other reaction(s): GI Problems Clavulanic Acid 04/27/2021 Clonidine Other 01/14/2011 Other reaction(s): dizziness, headache, GI Medications acetaminophen (Tylenol 8 Hour) 650 MG ER tablet Take 1 tablet by mouth every 8 (eight) hours. Active atorvastatin (Lipitor) 40 MG tablet Take 40 mg by mouth at bedtime. Active Bisacodyl EC 5 MG EC tablet Take 10 mg by mouth at bedtime. Active Blood Glucose Monitoring Suppl (FreeStyle Lite) device USE DIRECTED TO CHECK BLOOD GLUCOSE TWICE DAILY (E11.9) Active clonazePAM (KlonoPIN) 0.5 MG tablet TAKE 3 TABLETS BY MOUTH AT BEDTIME Active dapagliflozin (Farxiga) 5 MG Take 1 tablet by mouth in the morning. Active Emgality 120 MG/ML auto-injector Active Docusate Sodium (DSS) 100 MG capsuleIndicati ons:Other constipation Take one capsule in the morning and one in the evening for constipation 180 capsule 3 Active Qulipta 60 MG tablet Take 1 tablet by mouth in the morning. Active lisinopril 20 MG tablet Take 20 mg by mouth. 023 Active omeprazole (PriLOSEC) [address] capsule TAKE 1 CAPSULE BY MOUTH ONCE DAILY FOR 30 DAYS Active diclofenac (Cataflam) 50 MG tablet TAKE 1 TABLET BY MOUTH THREE TIMES DAILY NEEDED FOR HEADACHE FOR 7 DAYS Active HYDROcodone-yvette taminophen ([place]) 5-325 MG tablet TAKE 1 TABLET BY MOUTH EVERY 4 TO 6 HOURS NEEDED FOR PAIN Active metoclopramide (Reglan) 5 MG tablet TAKE 1 TO 2 TABLETS BY MOUTH EVERY 4 TO 6 HOURS NEEDED FOR NAUSEA AND VOMITING FOR 7 DAYS. MAX DAILY DOSE OF 4 TABLETS Active rizatriptan (Maxalt) 10 MG tablet TAKE 1/2 TO 1 (ONE-HALF TO ONE) TABLET BY MOUTH EVERY 2 HOURS NEEDED FOR MIGRAINE HEADACHE FOR 21 DAYS. MAX 2 TABLETS PER DAY OR 4 TABLET PER WEEK Active FreeStyle lancets 1 each by Other route 2 times daily. USE TO TEST BLOOD SUGAR TWICE DAILY 100 each 11 Active glipiZIDE XL (Glucotrol XL) 10 MG 24 hr tablet TAKE 2 TABLETS BY MOUTH ONCE DAILY WITH BREAKFAST 180 tablet 3 Active FREESTYLE LITE test stripIndication s:Type 2 diabetes mellitus without complication, without long-term current use of insulin ([facility]) USE 1 STRIP TO CHECK GLUCOSE TWICE DAILY DIRECTED 150 each 3 Active atenolol (Tenormin) 50 MG tabletIndicatio ns:Primary hypertension TAKE 1 & 1/2 (ONE & ONE-HALF) TABLETS BY MOUTH ONCE DAILY 135 tablet 3 Active chlorhexidine (Peridex) 0.12 % solution SWISH 15 ML IN MOUTH AND SPIT OUT TWICE DAILY FOR 10 DAYS Active famotidine (Pepcid) 40 MG tablet Take 40 mg by mouth at bedtime. Active cholecalciferol (D3) 25 MCG (1000 UT) capsule TAKE 1 CAPSULE BY MOUTH EVERY DAY 90 capsule 3 Active clotrimazole (Lotrimin) 1 % cream APPLY CREAM TOPICALLY TWICE DAILY TO AFFECTED AREAS FOR 28 DAYS Active Linzess 145 MCG capsule TAKE 1 CAPSULE BY MOUTH IN THE MORNING. TAKE FIRST THING IN THE MORNING WITH A FULL GLASS OF WATER Active nicotine (Nicoderm, Step 2) 14 MG/24HR patch Place 1 patch on the skin 1 (one) time each day at the same time. 30 patch 11 Active Trulicity 1.5 MG/0.5ML solution auto-injectorIn dications:Type 2 diabetes mellitus without complication, without long-term current use of insulin (CMS/[facility]) INJECT 1.5 MG (0.5 ML) SUBCUTANEOUSLY ONCE A WEEK Active predniSONE (Deltasone) 20 MG tablet Take 40 mg by mouth Once per day. Active melatonin 5 MG tabletIndicatio ns:Primary insomnia Take 2 tablets (10 mg) by mouth at bedtime. 180 tablet 3 Active Dulaglutide (Trulicity) 3 MG/0.5ML solution auto-injectorIn dications:Type 2 diabetes mellitus without complication, without long-term current use of insulin (CMS/[facility]) Inject 3 mg under the skin 1 (one) time per week. 2 mL 6 Active hydroCHLOROthia zide (HYDRODiuril) 25 MG tabletIndicatio ns:Essential hypertension TAKE 1 TABLET BY MOUTH IN THE MORNING 90 tablet Active Alcohol Swabs (B-D SINGLE USE SWABS REGULAR) padsIndications :Type 2 diabetes mellitus without complication, without long-term current use of insulin (CMS/HCC) USE 1 SWAB EXTERNALLY TWICE DAILY 100 each 11 025 Active Alcohol Swabs (B-D SINGLE USE SWABS REGULAR) padsIndications :Type 2 diabetes mellitus without complication, without long-term current use of insulin (CMS/HCC) USE 1 SWAB EXTERNALLY TWICE DAILY 100 each 5 024 2024 Discontinued Active Problems Problem Noted Date Diagnosed Date Primary insomnia 08/18/2024 Type 2 diabetes mellitus wit hout complication, without long-term current use of insulin 08/18/2024 Cervical spine pain 05/26/2024 Skin lesion 03/08/2024 Assessment & Plan (03/08/2024 11:06 AM EDT): -likely actinic keratosis and Nevi -patient is interested in cryotherapy due to discomfort -will schedule visit Left shoulder pain 03/08/2024 Assessment & Plan (03/08/2024 10:57 AM EDT): -most likely muscle spasm -advised heat application and gentle stretching -patient interested in trigger injections. Will schedule next available opening Rash 03/08/2024 Assessment & Plan (03/08/2024 11:08 AM EDT): -noted in external canal of bilateral ears -may be fungal -advised to application clotrimazole cream use a q-tip or tissue Contact dermatitis due to poison abraham 2023 Overview (09/14/2023): Last Assessment & Plan: Wash with dish soap Baking soda paste Mupirocin ointment Benadryl for itch at night Keflex for possible secondary infection If no improvement in 1-2 days start prednisone 20mg daily Assessment & Plan (2023 12:04 PM EDT): Wash with dish soap Baking soda paste Mupirocin ointment Benadryl for itch at night Keflex for possible secondary infection If no improvement in 1-2 days start prednisone 20mg daily Screening for cervical cancer 2023 Cellulitis of right upper limb 06/09/2023 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 Counseled re moderate exercise as tolerated, up to 20min/d Patient feels safe at home. PAP smear last one on file 2019 NIL/Neg HPV Mammogram Up to date, next one due March 2024 Bone density test TBO Eye exam Up to date, will obtain [facility] CRC screen up tp date, fu with GI for celiac disease every year Lipids/FBS Up to date 2022 lipids and CMP Vaccinations agreed to PCV 2019 and will defer Td for future appointment, declined Covid booster today, order PPD and other IZ titers for work, and order STI testing Dental visit up to date Acute stress reaction 03/04/2023 Assessment & Plan (03/04/2023 6:10 AM EDT): Due to of grandson Continue conversations and support with family Sleep hygiene Rest, meditation, prayer Can use ativan 0.5mg for uncontrolled symptoms of anxiety x 1-2 weeks Pain of left breast 03/04/2023 Depression, recurrent 06/20/2022 Assessment & Plan (05/25/2024 6:53 PM EDT): Continue therapy No SI/HI CRISIS/CHD, red flags Hypertensive disorder 06/20/2022 Assessment & Plan (03/08/2024 11:04 AM EDT): -slightly elevated BP reading today in office -likely due to pain/ discomfort -no med changes at this time -will continue to monitor Assessment & Plan (11/26/2023 1:36 PM EST): At goal < 140/90 Atenolol 50, Lisinopril 20, HCTZ 25 Low Na diet Exercise as tolerated Monitor BP daily Assessment & Plan (05/09/2023 10:10 AM EDT): BP is at goal. Counseled re low salt diet/increase moderate physical activity. Check home BP BIW and prn CP/SANTIAGO/PEREIRA Non smoking patient. Continue atenolol + amlodipine + lisinopril and FU with PCP Assessment & Plan (03/04/2023 6:07 AM EDT): At goal < 140/90 Amlodipine 2.5, Atenolol 50, Lisinopril 20, HCTZ 25 Low Na diet Exercise as tolerated Monitor BP daily Assessment & Plan (10/15/2022 11:52 AM EST): At goal < 140/90 Amlodipine 2.5, Atenolol 50, Lisinopril 20 Low Na diet Exercise as tolerated Monitor BP daily Migraine 06/20/2022 Assessment & Plan (06/12/2023 8:49 PM EDT): Much improved with Emgality Continue followup at [facility] neurology Encouraged wear of CPAP for help with SANTIAGO and BP Assessment & Plan (10/15/2022 11:53 AM EST): Much improved with Emgality Continue followup at [facility] neurology Encouraged wear of CPAP for help with SANTIAGO and BP 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 05/24/2021 Assessment & Plan (06/12/2023 8:48 PM EDT): cont exhibition specialist followup Assessment & Plan (05/09/2023 10:10 AM EDT): Pt has a follow up with exhibition specialist next month Nicotine dependence 05/24/2021 Assessment & Plan (10/15/2022 11:54 AM EST): Recommend quitting as much as possible Proteinuria 05/24/2021 Renal stone 05/24/2021 Stage 2 chronic kidney disease 05/24/2021 Restless legs 11/17/2018 Assessment & Plan (03/04/2023 6:06 AM EDT): More active with her acute stress/grief Type 2 diabetes mellitus wit h diabetic nephropathy, without long-term current use of insulin 08/06/2017 Assessment & Plan (05/25/2024 6:52 PM EDT): A1C 7.1 Continue Trulicity 1.5 mg weekly continue Glipizde 20 mg XL Continue Farixga 5mg daily Assessment & Plan (03/08/2024 10:53 AM EDT): -increase in A1c from 7.1 (11/24/23) to 7.4 today -patient has been on reduced dose of Trulicity secondary to medication availability -called [facility] pharmacy and confirmed Trulicity 1.5 mg is available for patient to received. Prescription placed -diabetic foot exam completed. Clotrimazole sent to pharmacy to be applied to web spaced of right pinky toe -advised meticulous foot care and self monitoring Assessment & Plan (11/26/2023 1:37 PM EST): A1C 7.1 Continue Trulicity 1.5 mg weekly continue Glipizde 10 mg XL Continue Farixga 5mg daily Assessment & Plan (09/16/2023 9:52 AM EST): A1C 7.2 Follow up in 3 months if still above goal, will increase Trulicity to 3mg weekly continue Glipizde 10 mg XL Continue Farixga 5mg daily Assessment & Plan (06/12/2023 8:48 PM EDT): At goal <7.0 continue Trulicity to 1.5mg weekly continue Glipizde 10 mg XL Continue Farixga 5mg daily Assessment & Plan (05/09/2023 10:10 AM EDT): A1C february 2023 was at goal. Continue glipizide + trulicity and fu with PCP Assessment & Plan (03/04/2023 6:08 AM EDT): At goal <7.0 continue Trulicity to 1.5mg weekly continue Glipizde 10 mg XL Continue Farixga 5mg daily Assessment & Plan (10/15/2022 11:53 AM EST): Not at goal <7.0 Increase Trulicity to 1.5mg weekly continue Glipizde 5 mg XL Continue Farixga 5mg daily Vitamin D deficiency 04/05/2016 Chronic back pain 11/27/2015 Headache 11/27/2015 Mixed hyperlipidemia 11/27/2015 Overweight 11/27/2015 Smoker 11/27/2015 Encounters Date Type Department Care Team Description 11/06/2024 Refill [facility] [address] [place] [address] Sima Kaur MD Type 2 diabetes mellitus without complication, without long-term current use of insulin ([facility]) 09/25/2024 Refill [facility] [address] [place] [address] Sima Kaur MD Essential hypertension 09/08/2024 3:40 PM EST Office Visit [facility] [address] [place] [address] Sunshine Jacques MD Bilateral otitis media, unspecified otitis media type (Primary Dx) 09/08/2024 Telephone [facility] [address] [place] [phone] Sima Kaur MD Nurse Triage; ER Follow-up 09/04/2024 Orders Only GENERIC EXTERNAL DATA DEPARTMENT Provider, Generic External Data 08/26/2024 Orders Only GENERIC EXTERNAL DATA DEPARTMENT Provider, Generic External Data 08/16/2024 9:15 AM EDT Office Visit [facility] [address] [place] [phone] Sima Kaur MD Type 2 diabetes mellitus without complication, without long-term current use of insulin ([facility]) (Primary Dx); Encounter for immunization; Primary insomnia; Primary hypertension; Type 2 diabetes mellitus with diabetic nephropathy, without long-term current use of insulin ([facility]); Mixed hyperlipidemia; Chronic migraine without aura without status migrainosus, not intractable 08/16/2024 Travel from Last 3 Months Immunizations Name Administration Dates Next Due Hep B, adult 08/18/2018,02/13/2018,04/04/2016 Influenza High-dose Quadriva lent Preservative Free 09/15/2023,07/19/2022 Influenza injectable quadriv alent IIV4 with preservative 08/18/2018 Influenza injectable quadriv alent preservative free 08/03/2021,07/11/2020,07/13/2019,2016 Influenza, IIV3, injectable 07/31/2011 Influenza, Split (incl. emir fied surface antigen) 08/16/2013,07/14/2012 Influenza, Unspecified 07/19/2022,07/31/2011 Moderna Covid-19 Vaccine 12+ 05/28/2022, 09/26/2021,02/15/2021,2020 Pfizer Covid-19 Vaccine 12+ 08/16/2024 Pneumococcal Conjugate PCV 13 10/28/2017 Pneumococcal Conjugate PCV 20 05/09/2023 RSV Bivalent 11/28/2023 TD (adult), 2 Lf tetanus tox oid, preservative free, adsorbed 10/18/2008,10/06/1996 Tdap 11/18/2012 Zoster, Recombinant 10/31/2021,08/24/2021 Zoster, live 08/06/2017 Social History Tobacco Use Types Packs/Day Years Used Date Smoking Tobacco: Every Day Cigarettes Passive Smoke Exposure: Current Smokeless Tobacco: Never Tobacco Cessation:Ready to Q uit: Not Asked; Counseling Given: Not Answered Alcohol Use Standard Drinks/Week Comments Never 0 [...] Orientation Straight 08/19/2022 10 :15 AM EDT Last Filed Vital Signs Vital Sign Reading Time Taken Comments Blood Pressure 128/81 09/08/2024 3:04 PM EST Pulse 71 09/08/2024 3:04 PM EST Temperature 36.6 ??C (97.8 ??F) 09/08/2024 3:04 PM ES T Respiratory Rate 16 09/08/2024 3:04 PM EST Oxygen Saturation 97% 09/08/2024 3:04 PM EST Inhaled Oxygen Concentration - - Weight 65.3 kg (144 lb) 09/08/2024 3:04 PM EST Height 154.9 cm (5' 1 ) 08/16/2024 9:15 AM EDT Body Mass Index 27.21 08/16/2024 9:15 AM EDT Plan of Treatment Health Maintenance Due Date Last Done Comments CT Colonography 1955 FIT DNA/Cologuard 1955 FIT 1955 FOBT 1955 Sigmoidoscopy 1955 Eye Exam 1967 DTaP/Tdap/Td Vaccines (2 - Td or Tdap) 11/18/2022 11/18/2012, 10/18/2008, 10/06/1996 Colonoscopy 01/10/2023 Influenza Vaccine (#1) 2024 , 07/19/2022, 07/19/2022, Additional history exists Diabetes: Hemoglobin A1C 11/16/2024 024, 05/25/2024, 03/08/2024, Additional history exists Lipid Panel 11/24/2024 11/24/2023, 09/20, 01/29/2021, Additional history exists Depression Monitoring (PHQ-9) 11/25/2024 05/25/2024, 05/25/2024 Diabetes: Foot Exam 03/08/2025 03/08/2024, 03/08/2024, 03/08/2024, Additional history exists Alcohol/Substance Use Screening 05/25/2025 05/25/2024 Depression Screening 05/25/2025 05/25/2024, 05/25/20 24 SDOH Screening 05/25/2025 05/25/2024 Mammogram 07/01/2025 07/01/2024, 02/2023, 03/24/2023, Additional history exists Tobacco Screening 08/18/2025 08/18/2024 Colorectal Cancer Screening 01/17/2028 Postponed from 1955 (Other Medical Reasons) Pap Smear 2028 2023, 06/21, 07/11/2020 Hepatitis B Vaccines Completed 08/18/2018, 02/13/2018, 04/04/2016 Zoster Vaccines Completed 10/31/2021, 02/2021, 08/06/2017 Pneumococcal Vaccine: 65+ Years Completed 05/09/2023, 10/28/2017 HPV/Cotest Discontinued 2023, 07/11/2020 RSV Patients and Patients Aged 60 years or older Completed 11/28/2023 Hepatitis C Screening Completed 05/25/2024 COVID-19 Vaccine Completed 08/16/2024, 06/2022, 09/26/2021, Additional history exists HIB Vaccines Aged Out No longer eligi ble based on patient's age to complete this topic HPV Vaccines Aged Out No longer eligi ble based on patient's age to complete this topic Hepatitis A Vaccines Aged Out No long er eligible based on patient's age to complete this topic IPV Vaccines Aged Out No longer eligi ble based on patient's age to complete this topic Meningococcal Vaccine Aged Out No summer esperanza eligible based on patient's age to complete this topic RSV under 20 months Aged Out No longe r eligible based on patient's age to complete this topic Rotavirus Vaccines Aged Out No longer eligible based on patient's age to complete this topic Procedures Procedure Name Priority Date/Time Associated Diagnosis Comments SARS COV2/INFLUENZA A/B AND RSV RNA QL NAAT Routine 09/04/2024 8:31 PM EST STREP A NUCLEIC ACID Routine 09/04/2024 8:31 PM EST XR CHEST 2 VIEWS Routine 09/04/2024 8:26 PM EST BI MAMMOGRAM DIAGNOSTIC TOMOSYNTHESIS ADDED VIEW BILATERAL Routine 08/31/2024 1:25 PM EST XR ABDOMEN W DECUBITUS Routine 1:40 PM EST TISSUE TRANSGLUTAMINASE AB, IGA Routine 08/26/2024 12:54 PM EST TISSUE TRANSGLUTAMINASE AB, IGG Routine 08/26/2024 12:54 PM EST TSH W/REFLEX TO FT4 Routine 08/26/2024 1 2:54 PM EST POCT GLYCATED HEMOGLOBIN, TOTAL Routine 08/16/2024 9:18 AM EDT Type 2 diabetes mellitus without complication, without long-term current use of insulin (CMS/HCC) POCT GLUCOSE Routine 08/16/2024 9:17 AM EDT Type 2 diabetes mellitus without complication, without long-term current use of insulin (CMS/HCC) BI MAMMOGRAM SCREENING TOMOSYNTHESIS BILATERAL Routine 07/01/2024 11:30 AM EDT HEPATITIS C AB W/REFL TO HCV RNA, QN, PCR Routine 05/25/2024 11:37 AM EDT Epigastric pain LIPID PANEL, STANDARD Routine 11/24/2023 12:45 PM EST Type 2 diabetes mellitus without complication, without long-term current use of insulin (CMS/HCC) HPV MRNA E6/E7 REFLEX TO HPV 16, 18/45 Routine 2023 12:00 AM EDT PAP SMEAR Routine 2023 from Last 3 Months or Most Recently Relevant to Health Maintenance Results * Strep A Nucleic Acid (09/04/2024 8:31 PM EST) IDNOW SERIAL# [id number] [facility] Strep A Nucleic Acid Negative Negative [facility] Comment:All test results mus t be correlated with clinical findings.This test has not been evaluated for monitoring treatment ofinfection.Additional follow-up testing using the culture method isrequired if the result is negative and clinical symptomspersist, or in the event of an acute rheumatic feveroutbreak. 09/04/2024 8:31 PM EST 09/04/2024 8:34 PM EST Generic External Data Provider LAB MICROBIOLOGY - GENERAL ORDERABLES Final Result Performing Organization Address [facility] Co de Phone Number [facility] [address] [place] [address] [phone] * SARS-CoV-2 RNA, Influenza A/B, and RSV RNA, Ql NAAT (09/04/2024 8:31 PM EST) Influenza A PCR NEGATIVE Negative [facility] Influenza B PCR NEGATIVE Negative [facility] Resp Syncy Virus RNA Qual PCR NEGATIVE Negative [facility] SARS COV2 PCR NEGATIVE Negative [facility] Comment:All test results mus t be correlated with clinical findings.Negative results do not preclude SARS-CoV2, influenza Avirus, influenza B virus and/or RSV infectionand should not be used as the sole basis for treatment orother patient management decisions. Negative results must becombined with clinical observations, patient history, andepidemiological information.This test has not been evaluated for monitoring treatment ofinfection.This test has been authorized by the FDA under an EmergencyUse Authorization (EUA) for use by authorized laboratories.Testing performed on the [employer] GeneXpert utilizingreal-time RT-PCR.All SARS CoV2 and positive influenza A/B results arereported to [facility]. 09/04/2024 8:31 PM EST 09/04/2024 8:34 PM EST Generic External Data Provider LAB MICROBIOLOGY - GENERAL ORDERABLES Final Result Performing Organization Address [facility] Co de Phone Number [facility] [address] [place] [address] [phone] * XR Chest 2 Views (09/04/2024 8:26 PM EST) Anatomical Region Laterality Modality Chest Radiographic Bettye ging 09/04/2024 8:26 PM EST Narrative 09/04/2024 9:42 PM EST ? [facility] ?[address] ?[place] [address] ?XRay Report ? Signed ? Patient: Sukh,Stephanie ?MR#: MM ?? [id number] ? : 1955 ?Acct:[id number] ? Age/Sex: 69 / F ?ADM Date: 09/04/24 ? Loc: HO.ED ? Attending Dr: ? Ordering Physician: Lin Colon ?? Date of Service: 09/04/24 ?? Procedure(s): XR chest 2V ?? Accession Number(s): [id number] ? cc: Sima Kaur; Lin Colon ? EXAMINATION: ?? XR CHEST ? CLINICAL INFORMATION: ?? Congestion ? COMPARISON: ?? 2 view chest 08/11/2010. (Report only) ? TECHNIQUE: ?? 2 views of the chest were obtained. ? FINDINGS: ?? No significant abnormality is noted involving the heart, lungs, ?? mediastinum, bony thorax or soft tissues. ACDF hardware is noted. ?? Surgical clips are present in the right upper quadrant ? XR/XR chest 2V ?? IMPRESSION: ?? Unremarkable examination. ? Electronically signed by: ??Jose Alfredo Nick MD ??09/04/2024 09:39 PM EST ? Dictated By: ?Jose Alfredo Nick MD ? Signed By: ?<Electronically signed by Jose Alfredo Nick MD in OV> ? 09/04/242138 ? DD/ 25 ? TD/TT: 09/04/242037 ? Enterprise Security Architect: SS ? Procedure Note Nimco Martinez - 09/04/[address] [address] XRay Report Signed Patient: Stephanie LuzMR#: [id number] : 7Acct:[id number] Age/Sex: 69 / FADM Date: 09/04/24 Loc: HO.ED Attending Dr: Ordering Physician: Lin Colon Date of Service: 09/04/24 Procedure(s): XR chest 2V Accession Number(s): [id number] cc: Sima Kaur; Lin Colon EXAMINATION: XR CHEST CLINICAL INFORMATION: Congestion COMPARISON: 2 view chest 08/11/2010. (Report only) TECHNIQUE: 2 views of the chest were obtained. FINDINGS: No significant abnormality is noted involving the heart, lungs, mediastinum, bony thorax or soft tissues. ACDF hardware is noted. Surgical clips are present in the right upper quadrant XR/XR chest 2V IMPRESSION: Unremarkable examination. Electronically signed by: Jose Alfredo Nick MD 09/04/2024 09:39 PM EST RP Dictated By: Jose Alfredo Nick MD Signed By: <Electronically signed by Jose Alfredo Nick MD in OV> 09/04/242138 DD/ 25 TD/TT: 09/04/242037 Enterprise Security Architect: SS [facility] External Provider IMG XR PROCEDURES Edited Result - Final * BI Mammogram Diagnostic Tomosynthesis added bilateral (08/31/2024 1:25 PM EST) Anatomical Region Laterality Modality Breast Left Mammography 08/31/2024 1:25 PM EST Narrative 08/31/2024 2:37 PM EST ? [facility] [place] ? [address] ?[place] [address] ? Mammography Report ? Signed ? Patient: Sukh,Stephanie ?MR#: [id number] ?? [id number] ? : 1955 ?Acct:[id number] ? Age/Sex: 69 / F ?ADM Date: 11/12/24 ? Loc: HO.MAMMO ? Attending Dr: Sima Kaur MD ? Ordering Physician: Sima Kaur ?Results: 1Negative ? Date of Service: 08/31/24 ?Follow Up: 1 Year From Orig ?? inal Mammogram ? Procedure(s): MM tomosynthesis added view BI ?? Accession Number(s): [id number] ? cc: Sima Kaur ? EXAMINATION: ?? MM DIAGNOSTIC DIGITAL BREAST TOMOSYNTHESIS, BILATERAL ? CLINICAL INFORMATION: ? Diagnostic exam; focal asymmetry left upper outer breast middle depth. ?? Focal asymmetry upper central breast middle depth. Asymmetry lateral ?? right breast posterior depth cc view. Asymmetry superior breast ?? anterior to middle depth on the MLO view. ? COMPARISON: ?? Mammography: 07/01/2024. Exams dating back to 2019. ? TECHNIQUE: ?? Digital breast tomosynthesis is performed in the following views: Full ?? field 3-D bilateral CC rolled medial and rolled lateral views, ?? bilateral 3-D spot compression cc views and MLO views. Computer-aided ?? diagnosis was used for this study. ? FINDINGS: ?? The breasts are heterogeneously dense, which may obscure small masses ?? (ACR BI-RADS breast composition Category c). ? Bilateral asymmetries and focal asymmetries do not persist on spot ?? compression views and rolled views of either breast. There are no ?? persistent findings suggestive of malignancy. Findings are consistent ?? with superimposition artifact of normal overlapping tissues. ? In retrospect, the appearance is identical to exams dating back to ?? 2019, and 2018. ? MM/MM tomosynthesis added view BI ?? IMPRESSION: ?? -There are no findings suspicious for malignancy in either breast. ? -Asymmetries do not persist bilaterally, and are consistent with ?? superimposition artifact of normal overlapping breast tissues. ? -Recommend the patient resume routine annual screening. ? ASSESSMENT: ? BI-RADS BI-RADS 1 - Negative ? RECOMMENDATION: ?? 1 year F/U ? Results were provided to the patient at time of visit by the ?? technologist. ? This patient's information was entered into a reminder system with a ?? target due date for their next mammogram. ? Electronically signed by: ??Edouard Allred MD ??08/31/2024 02:34 PM EST RP ? Dictated By: ?Edouard Allred MD ? Signed By: ?<Electronically signed by Edouard Allred MD in OV> ?08/31/24 1434 ? DD/ 1325 ? TD/TT: 08/31/24 1346 ? Enterprise Security Architect: ? Procedure Note Donzora, Image - 08/31/2024 [facility] [address] [place] [address] Mammography Report Signed Patient: Stephanie LuzMR#: [id number] : 7Acct:[id number] Age/Sex: 69 / FADM Date: 08/31/24 Loc: HO.MAMMO Attending Dr: Sima Kaur MD Ordering Physician: Kleber Kaurults: 1Negative Date of Service: 08/31/24Follow Up: 1 Year From Orig inal Mammogram Procedure(s): MM tomosynthesis added view BI Accession Number(s): [id number] cc: Sima Kaur EXAMINATION: MM DIAGNOSTIC DIGITAL BREAST TOMOSYNTHESIS, BILATERAL CLINICAL INFORMATION: Diagnostic exam; focal asymmetry left upper outer breast middle depth. Focal asymmetry upper central breast middle depth. Asymmetry lateral right breast posterior depth cc view. Asymmetry superior breast anterior to middle depth on the MLO view. COMPARISON: Mammography: 07/01/2024. Exams dating back to 2019. TECHNIQUE: Digital breast tomosynthesis is performed in the following views: Full field 3-D bilateral CC rolled medial and rolled lateral views, bilateral 3-D spot compression cc views and MLO views. Computer-aided diagnosis was used for this study. FINDINGS: The breasts are heterogeneously dense, which may obscure small masses (ACR BI-RADS breast composition Category c). Bilateral asymmetries and focal asymmetries do not persist on spot compression views and rolled views of either breast. There are no persistent findings suggestive of malignancy. Findings are consistent with superimposition artifact of normal overlapping tissues. In retrospect, the appearance is identical to exams dating back to 2019, and 2019. MM/MM tomosynthesis added view BI IMPRESSION: -There are no findings suspicious for malignancy in either breast. -Asymmetries do not persist bilaterally, and are consistent with superimposition artifact of normal overlapping breast tissues. -Recommend the patient resume routine annual screening. ASSESSMENT: BI-RADS BI-RADS 1 - Negative RECOMMENDATION: 1 year F/U Results were provided to the patient at time of visit by the technologist. This patient's information was entered into a reminder system with a target due date for their next mammogram. Electronically signed by: Edouard Allred MD 08/31/2024 02:34 PM EST Dictated By: Edouard Allred MD Signed By: <Electronically signed by Edouard Allred MD in OV> 08/31/24 1434 DD/ 1325 TD/TT: 08/31/24 1346 Enterprise Security Architect: us Sima Kaur MD IMG BI PROCEDURES Final Result * XR ABDOMEN W DECUBITUS (08/26/2024 1:40 PM EST) Anatomical Region Laterality Modality Abdomen Radiographic Bettye ging 08/26/2024 1:40 PM EST Narrative 10/29/2024 12:00 PM EST ? [facility] ?[address] ?[place] [address] ?XRay Report ? Signed ? Patient: Sukh,Stephanie ?MR#: MM ?? [id number] ? : 1955 ?Acct:[id number] ? Age/Sex: 69 / F ?ADM Date: 11/07/24 ? Loc: HO.LAB ? Attending Dr: Carey TATE ? Ordering Physician: Carey Carson ?? Date of Service: 08/26/24 ?? Procedure(s): XR abdomen w decubitus ?? Accession Number(s): [id number] ? cc: Carey Carson; Sima Kaur ? EXAMINATION: ?? XR ABDOMEN WITH DECUBITUS ? CLINICAL INDICATION: ?? Dysphagia, unspecified R13.10. ? COMPARISON: ?? XR Abdomen with decubitus 11/16/2021 ? TECHNIQUE: ?? 3 views of abdomen with decubitus. ? FINDINGS: ?? The bowel gas pattern is within normal limits, with no evidence of ?? ileus or obstruction. Redemonstrated is surgical clips in the right ?? upper quadrant from prior cholecystectomy. Lung bases are clear. No ?? suspicious bony lesion seen. . ? XR/XR abdomen w decubitus ?? IMPRESSION: ?? Nonobstructive bowel gas pattern. ? Study is assigned/presented for dictation on Oct 29, 2024 ? Electronically signed by: ??Lamberto Guzmán MD ??10/29/2024 11:57 AM EST ?? RP ? Dictated By: ?Lamberto Guzmán MD ? Signed By: ?<Electronically signed by Lamberto Guzmán MD in OV> ?10/29/24 1157 ? DD/ 1340 ? TD/TT: 08/26/24 1350 ? Enterprise Security Architect: HB ? Procedure Note Juan, Image - 10/29/2024 [place] [address] XRay Report Signed Patient: Stephanie LuzMR#: [id number] : 7Acct:[id number] Age/Sex: 69 / FADM Date: 08/26/24 Loc: HO.LAB Attending Dr: Carey TATE Ordering Physician: Carey Carson Date of Service: 08/26/24 Procedure(s): XR abdomen w decubitus Accession Number(s): [id number] cc: Carey Carson; Sima Kaur EXAMINATION: XR ABDOMEN WITH DECUBITUS CLINICAL INDICATION: Dysphagia, unspecified R13.10. COMPARISON: XR Abdomen with decubitus 11/16/2021 TECHNIQUE: 3 views of abdomen with decubitus. FINDINGS: The bowel gas pattern is within normal limits, with no evidence of ileus or obstruction. Redemonstrated is surgical clips in the right upper quadrant from prior cholecystectomy. Lung bases are clear. No suspicious bony lesion seen. . XR/XR abdomen w decubitus IMPRESSION: Nonobstructive bowel gas pattern. Study is assigned/presented for dictation on Oct 29, 2024 Electronically signed by: Lamberto Guzmán MD 10/29/2024 11:57 AM EST RP Workstation: [employer] Dictated By: Lamberto Guzmán MD Signed By: <Electronically signed by Lamberto Guzmán MD in OV> 10/29/24 1157 DD/ 1340 TD/TT: 08/26/24 1350 Enterprise Security Architect: HB [facility] External Provider IMG XR PROCEDURES Final Result * TSH with Reflex to Free T4 (08/26/2024 12:54 PM EST) TSH reflex Free T4 1.20 0.32 - 4.0 uIU/mL [facility] 08/26/2024 12:5 4 PM EST 08/26/2024 12:54 PM EST Generic External Data Provider LAB BLOOD ORDERAB LES Final Result [facility] [address] [place] [phone] * Tissue Transglutaminase (tTG) Antibody (IgG) (08/26/2024 12:54 PM EST) Tissue Transglutaminase Antibody IgG 5.2 U/mL [facility] Comment:Value Interpretation ----- <15.0 Antibody not detected> or = 15.0 Antibody detectedTHIS TEST WAS PERFORMED AT:[facility] [place] [phone] NEWMAN MD 08/26/2024 12:5 4 PM EST 08/26/2024 12:54 PM EST Generic External Data Provider LAB BLOOD ORDERAB LES Final Result Performing Organization Address [facility] Co de Phone Number [facility] [address] [place] [phone] * (ABNORMAL) Tissue Transglutaminase Antibody, IgA (08/26/2024 12:54 PM EST) Pathologist [facility] Transglutaminase IgA 134.2(A) U/mL [facility] Comment:Value Interpretation ----- <15.0 Antibody not detected> or = 15.0 Antibody detectedTHIS TEST WAS PERFORMED AT:[facility] [place] [phone] NEWMAN MD 08/26/2024 12:5 4 PM EST 08/26/2024 12:54 PM EST Generic External Data Provider LAB BLOOD ORDERAB LES Final Result Performing Organization Address [facility] Co de Phone Number [facility] [address] [place] [phone] * (ABNORMAL) POCT A1C (08/16/2024 9:18 AM EDT) Pathologist [facility] Hemoglobin A1C 7.4(A) 4.0 - 6.0 % QC Media Lot # [id number] Lot# Expiration Date ,336,814 Blood 08/16/2024 9:18 AM EDT Sima Kaur MD POINT OF CARE TEST ENTER/EDIT ORDERABLES Final Result * (ABNORMAL) POCT glucose manually resulted (08/16/2024 9:17 AM EDT) Pathologist [facility] Glucose Blood, POC 248(A) 60 - 200 mg/dL QC Media Lot # [id number] Lot# Expiration Date ,467,324 Blood Capillary blood specimen / Unknown 08/16/2024 9:17 AM EDT us Sima Kaur MD POINT OF CARE TEST ENTER/EDIT ORDERABLES Final Result * BI Mammogram Screening Tomosynthesis Bilateral (07/01/2024 11:30 AM EDT) Anatomical Region Laterality Modality Breast Bilateral Mammography 07/01/2024 11:3 0 AM EDT Narrative 07/14/2024 7:50 PM EDT ? [facility] [place] ? [address] ?[place] [address] ? Mammography Report ? Signed ? Patient: Sukh,Stephanie ?MR#: MM ?? [id number] ? : 1955 ?Acct:[id number] ? Age/Sex: 69 / F ?ADM Date: 07/01/24 ? Loc: HO.MAMMO ? Attending Dr: Sima Kaur MD ? Ordering Physician: Sima Kaur ?Results: 0Incomple ?? te: Needs Additional Imaging Evaluation ? Date of Service: 07/01/24 ?Follow Up: Additional Imagi ?? ng ? Procedure(s): MM tomosynthesis screening BI ?? Accession Number(s): [id number] ? cc: Sima Kaur ? EXAMINATION: ?? MM SCREENING DIGITAL BREAST TOMOSYNTHESIS, BILATERAL ? CLINICAL INFORMATION: ? Screening. Asymptomatic. ? COMPARISON: ?? Mammography: Comparison is made with available priors ? TECHNIQUE: ?? Digital breast mammography with tomosynthesis is performed in both the ?? craniocaudal and mediolateral oblique views along with computer-aided ?? detection (CAD). ? FINDINGS: ?? The breasts are heterogeneously dense, which may obscure small masses ?? (ACR BI-RADS breast composition Category c). ? Left: Focal asymmetry upper outer breast middle depth. ?? Focal asymmetry upper central breast middle depth. ?? No suspicious calcifications or other abnormal findings. ? Right: Asymmetry lateral breast posterior to the cc view. ?? Asymmetry superior breast anterior to middle depth on MLO view. ?? No suspicious calcifications or other abnormal findings. ? MM/MM tomosynthesis screening BI ?? IMPRESSION: ?? Additional imaging is recommended ? ASSESSMENT: ? BI-RADS BI-RADS 0 - Incomplete: Needs additional Imaging. ? RECOMMENDATION: ?? 1. Additional views of the bilateral breast ?? 2. Targeted ultrasound if warranted after review of the additional ?? views. ?? 3. Radiology department staff will contact the patient for additional ?? imaging. ? Additional Imaging required ? This examination should not preclude the clinical evaluation of a ?? suspicious palpable abnormality. ? This patient's information was entered into a reminder system with a ?? target due date for their next mammogram. ? Electronically signed by: ??Felicia English DO ??07/14/2024 07:47 PM EDT ?? RP ? Dictated By: ?Felicia English DO ? Signed By: ?<Electronically signed by Felicia English, DO in OV> ? 07/14/247 ? DD/ 1130 ? TD/TT: 07/01/24 1149 ? Enterprise Security Architect: ? Procedure Note Juan, [place] - 07/14/2024 [facility] [address] [place] [address] Mammography Report Signed Patient: Stephanie LuzMR#: [id number] : 7Acct:[id number] Age/Sex: 69 / FADM Date: 07/01/24 Loc: HO.MAMMO Attending Dr: Sima Kaur MD Ordering Physician: Kleber Kaurults: 0Incomple te: Needs Additional Imaging Evaluation Date of Service: 07/01/24Follow Up: Additional Imagi ng Procedure(s): MM tomosynthesis screening BI Accession Number(s): [id number] cc: Sima Kaur EXAMINATION: MM SCREENING DIGITAL BREAST TOMOSYNTHESIS, BILATERAL CLINICAL INFORMATION: Screening. Asymptomatic. COMPARISON: Mammography: Comparison is made with available priors TECHNIQUE: Digital breast mammography with tomosynthesis is performed in both the craniocaudal and mediolateral oblique views along with computer-aided detection (CAD). FINDINGS: The breasts are heterogeneously dense, which may obscure small masses (ACR BI-RADS breast composition Category c). Left: Focal asymmetry upper outer breast middle depth. Focal asymmetry upper central breast middle depth. No suspicious calcifications or other abnormal findings. Right: Asymmetry lateral breast posterior to the cc view. Asymmetry superior breast anterior to middle depth on MLO view. No suspicious calcifications or other abnormal findings. MM/MM tomosynthesis screening BI IMPRESSION: Additional imaging is recommended ASSESSMENT: BI-RADS BI-RADS 0 - Incomplete: Needs additional Imaging. RECOMMENDATION: 1. Additional views of the bilateral breast 2. Targeted ultrasound if warranted after review of the additional views. 3. Radiology department staff will contact the patient for additional imaging. Additional Imaging required This examination should not preclude the clinical evaluation of a suspicious palpable abnormality. This patient's information was entered into a reminder system with a target due date for their next mammogram. Electronically signed by: Felicia English DO 07/14/2024 07:47 PM EDT Dictated By: Felicia English DO Signed By: <Electronically signed by Felicia English DO in OV> 07/14/241946 DD/ 1130 TD/TT: 07/01/24 1149 Enterprise Security Architect: Sima Kaur MD IMG BI PROCEDURES Edited Resul t - Final * Hepatitis C Antibody with Reflex to HCV, RNA, Quantitative, Real-Time PCR (05/25/2024 11:37 AM EDT) Hepatitis C Antibody Nonreactive Nonreactive [facility] Comment:Antibodies to HCV no t detected; does not exclude early acuteHCV infection. Blood Venous blood specimen / Unknown 05/25/2024 11:37 AM EDT 05/25/2024 1:24 PM EDT Sima Kaur MD LAB BLOOD ORDERABLES Final Res ult [facility] [address] [place] [phone] * (ABNORMAL) Lipid Panel, Standard (11/24/2023 12:45 PM EST) Triglycerides 186(H) <150 mg/dL [facility] Comment:Desirable Triglyceri de: less than 150 mg/dLBorderline High Triglyceride 150-199 mg/dLHigh Triglyceride: 200-499 mg/dLVery High Triglyceride: greater than or equal to 5OO mg/dL Cholesterol 103 <200 mg/dL [facility] Comment:Desirable Cholestero l: less than 200 mg/dLBorderline High Cholesterol: 200-239 mg/dLHigh Cholesterol: greater than 239 mg/dL LDL Cholesterol Calculated 37 <100 mg/dL [facility] Comment:Desirable LDL: less than 100 mg/dLNear Optimal/Above Optimal LDL: 110- 129 mg/dLBorderline High LDL: 130-159 mg/dLHigh LDL: 160-189 mg/dLVery High LDL: greater than or equal to 190 mg/dL HDL Cholesterol 29(L) >40 mg/dL [facility] Comment:Desirable HDL: great er than 40 mg/dL Note: This HDL assay may give artificially low results in patients with liver disease. Blood Venous blood specimen / Unknown 11/24/2023 12:45 PM EST 11/24/2023 1:10 PM EST Sima Kaur MD LAB BLOOD ORDERABLES Final Res ult Performing Organization Address [facility]/ZIP Co de Phone Number [facility] [address] [place] [phone] * HPV mRNA E6/E7 w/Reflex to HPV Genotypes 16, 18/45 (2023 12:00 AM EDT) HPV nRNA E6/E7 Not Detected Not Detected [facility] Comment:Methodology: Transcr iption-Mediated AmplificationThis assay detects E6/E7 viral messenger RNA (mRNA) from 14high-risk HPV types (16,18,31,33,35,39,45,51,52,56,58,59,66,68).Cervical sources are required for HPV testing.If a vaginal source from a patient who has had atotal hysterectomy with removal of cervix wassubmitted, please contact the testing laboratoryfor alternative testing options.For additional information, please refer tohttp://education.[employer]/faq/FFA361h1(This link if provided for information/educational purposes only.)THIS TEST WAS PERFORMED AT:[facility] [place] [phone] NEWMAN MD HPV mRNA E6/E7 [facility] HPV 16 RNA [facility] HPV 18/45 RNA [facility] 2023 06/16/2023 1:5 0 PM EDT Sima Kaur MD LAB CYTOLOGY ORDERABLES Final Result Performing Organization Address City/[facility]/ZIP Co de Phone Number [facility] [address] [place] [phone] * Pap Smear (2023) 2023 06/16/2023 1:5 0 PM EDT Narrative [facility] - 06/28/2023 2:14 PM EDT ----- ------- Name: Stephanie Luz ? Age/Sex: 68/F ? : 1955 Unit#: [id number] ?? Attend Dr: Sima Kaur ?Re06/13/23 ?Status: DEP REF ? Location: HO.LNP ?Disch: ? ----- ------- SPEC : [id number] ?RECD: 06/16/23-4840 ? STATUS: ??SOUT ? REQ NUM: [id number] ? CAMI: 06/13/23- ? SUBM DR: Sima Kaur ? ENTERED: ??06/16/23-781 ?SP TYPE: Pap Smr ?OTHR : ? ORDERED: ??Pap Smear ? Interpretation ?? Satisfactory for evaluation. ?? Negative for intraepithelial lesion or malignancy. ? HPV mRNA E6/E7: ?NOT DETECTED ? This assay detects E6/E7 viral messenger RNA (mRNA) from 14 high-risk HPV types (16, 18, ?? 31, 33, 35, 39, 45, 51, 52, 56, 58, 59, 66, 68) ? HPV testing performed by [employer], [place], [place]. ??See reference laboratory ?? portion of the EMR for entire report. ?Clinical Information LMP:Unknown date Previous PAP test:Unknown date/findings ? Material Received ?? ThinPrep-Vaginal/Cervical ----- ------- Signed (signature on file) Lin Davis Darlene 06/28/23 1414 ? ----- ------- ? END OF REPORT ? Sima Kaur MD LAB CYTOLOGY ORDERABLES Final Result [facility] [address] [place] [phone] from Last 3 Months or Most Recently Relevant to Health Maintenance Insurance * Guarantor: Sukh Stephanie Account Type Relation to Patient Date of Phone Billing Address Personal/Family Self [address] JULIO Sheehan21 Care Teams Rn Womens Health Relationship Specialty Start Date End Date Sima Kaur MD [address] [place] [phone] PCP - General Family Medicine 11/28/20
--- OUTSIDE RECORDS SUMMARY | 2024-11-10 10:39 | XMS_ITS | Encounter Summary ---
Author Organization [facility] Address [address] [place] [address] Care Team Providers Care Payroll Bookkeeper Name Role Phone Sima Kaur MD Primary Care Provider [phone] Encounter Details Date Type Department Care Team (Late st Contact Info) Description 01/10/2023 Abstract [facility] [address] [place], [place] [phone] Sima Kaur MD [address] [place], [place] [phone] Social History Tobacco Use Types Packs/Day Years Used Date Smoking Tobacco: Every Day Cigarettes Smokeless Tobacco: Never Alcohol Use Standard Drinks/Week Comments Never 0 (1 standard drink = 0.6 oz pur e alcohol) Comments Unknown Sex and Gender Information Value Date Recorded Sex Assigned at Female 08/19/2022 10:15 AM EDT Legal Sex Female 10:15 AM EDT Gender Identity Female 08/19/2022 10:15 AM EDT Sexual Orientation Straight 08/19/2022 10 :15 AM EDT documented as of this encounter Plan of Treatment Not on file documented as of this encounter Procedures Procedure Name Priority Date/Time Associated Diagnosis Comments MAMMOGRAPHY Routine 05/15/2022 PAP SMEAR Routine 07/11/2020 12:00 AM EDT documented in this encounter Results * Mammography (05/15/2022) Mammogram completed mammo Anatomical Region Laterality Modality Other Historical Provider HEALTH MAINTENANCE Final Result * Pap Smear (07/11/2020 12:00 AM EDT) Swab us Historical Provider LAB CYTOLOGY ORDERABLES F inal Result [facility] [address], [place] [phone] documented in this encounter Visit Diagnoses Not on filedocumented in this encounter Care Teams Payroll Bookkeeper Relationship Specialty Start Date End Date Sima Kaur MD [address] [place] [phone] PCP - General Family Medicine 11/28/20 documented as of this encounter
--- OUTSIDE RECORDS SUMMARY | 2024-11-10 10:39 | XMS_ITS | Encounter Summary ---
Author Organization [facility] Address [address] [place] [address] Care Team Providers Care Accounting Practice Manager Name Role Phone Sima Kaur MD Primary Care Provider [phone] Reason for Visit * Reason Onset Date Comments Nurse Triage 09/08/2024 ER Follow-up 09/08/2024 Encounter Details Date Type Department Care Team ([facility] st Contact Info) Description 09/08/2024 Telephone [facility] [address] [place], [place] [phone] Sima Kaur MD [address] [place], [place] [phone] Nurse Triage; ER Follow-up Social History Tobacco Use Types Packs/Day Years [...] AM EDT documented as of this encounter Miscellaneous Notes * Telephone Encounter - Margoth Pat RN - 09/08/2024 10:34 AM EST Triage call Pt was seen in [facility] [place] left ear infection. Pt was prescribed amoxicillin. Pt has been having difficulty with swallowing the amoxicillin. Pt reports crushing the pills and taking in applesauce but, the pills still get stuck in throat. Pt is asking for help in finding a way to take the medication to be able to get better from the infection. Pt still feels same sx as on 09/04/24. Pt is advised to come to [facility] today open till 8pm. No available apts with PCP this week. Pt is advised to call for follow up next week in hopes that apt opens with PCP. Pt agrees with disposition and plan . Insurance is verified as active. Protocol Used: Sore Throat (Adult) Protocol-Based Disposition: See in Office or Video Visit Today Video visit not offered Positive Triage Question: * Patient wants to be seen * All higher-acuity triage questions were negative Care Advice Discussed: * Drink Plenty of Liquids * Telephone Encounter - Zoraida Obrien - 09/08/2024 9:52 AM EST Patient calling to report ED visit on : Date: 09/04/24 Hospital: [facility] Seen for: Ear infection Pt stated she is having trouble with the medication prescribed. Pt reported following symptoms earache, swollen grands, and coughing Patient advised will forward to triage nurse. Contact pt at [phone] documented in this encounter Plan of Treatment Not on file documented as of this encounter Visit Diagnoses Not on filedocumented in this encounter Additional Health Concerns Assessment Noted Time PHQ-9 Depression Total Score: 10 024 11:02 AM EDT documented as of this encounter Care Teams Accounting Practice Manager Relationship Specialty Start Date End Date Sima Kaur MD [address] [place] [address] PCP - General Family Medicine 11/28/20 documented as of this encounter
--- OUTSIDE RECORDS SUMMARY | 2024-11-10 10:39 | XMS_ITS | Encounter Summary ---
Author Organization [employer] [facility] Address [address] [facility] 7t [place] [address] Care Team Providers Care Chart Writer Name Role Phone Sima Kaur MD Primary Care Provider [phone] Encounter Details Date Type Department Care Team (Late st Contact Info) Description 06/20/2023 Orders Only [facility] [address] [place], [place] [phone] Sima Kaur MD [address] [place], [place] [phone] Poison abraham dermatitis (Primary Dx) Social History Tobacco Use Types Packs/Day Years Used Date Smoking Tobacco: Every Day Cigarettes Smokeless Tobacco: Never Alcohol Use Standard Drinks/Week Comments Never 0 (1 standard drink = 0.6 oz pur e alcohol) Depression Answer Date Recorded Patient Health Questionnaire-9 Score 9 03/03/2023 Depression Answer Date Recorded Patient Health Questionnaire-2 Score 6 03/03/2023 Comments Unknown Sex and Gender Information Value Date Recorded Sex Assigned at Female 08/19/2022 10:15 AM EDT Legal Sex Female 10:15 AM EDT Gender Identity Female 08/19/2022 10:15 AM EDT Sexual Orientation Straight 08/19/2022 10 :15 AM EDT documented as of this encounter Plan of Treatment Not on file documented as of this encounter Visit Diagnoses Diagnosis Poison abraham dermatitis- Primary documented in this encounter Additional Health Concerns Assessment Noted Time PHQ-9 Depression Total Score: 9 03/03/20 23 9:28 AM EDT documented as of this encounter Care Teams Chart Writer Relationship Specialty Start Date End Date Sima Kaur MD [address] [place], [place] [phone] PCP - General Family Medicine 11/28/20 documented as of this encounter
--- OUTSIDE RECORDS SUMMARY | 2024-11-10 10:39 | XMS_ITS | Encounter Summary ---
Author Organization [employer] Address [address] [facility] 7t [place] [address] Care Team Providers Care Car Clerk Pullman Name Role Phone Sima Kaur MD Primary Care Provider Reason for Referral * Consultation (Routine) - Closed Specialty Diagnoses / Procedures Referred By Contradha t Referred To Contact Neurosurgery Diagnoses Cervical spine pain Cervical radiculopathy due to degenerative joint disease of spine Sima Kaur MD [address] [place] [address] Phone: tel: fax: Sheridan Valentine MD [address] [place] [address], [address] [place] [address] Phone: tel: fax: Referral ID Status Reason Start Date Expiration Date V isits Requested Visits Authorized [id number] Closed Specialty Services Required 05/28/2024 05/28/2025 1 0 Encounter Details Date Type Department Care Team (Late st Contact Info) Description 05/28/2024 Orders Only [facility] [address] [place], [place] [phone] Sima Kaur MD [address] [place], [place] [phone] Cervical spine pain (Primary Dx); Cervical radiculopathy due to degenerative joint disease of spine Social History Tobacco Use Types Packs/Day Years [...] Recorded Patient Health Questionnaire-2 Score 6 05/25/2024 Comments Unknown Sex and Gender Information Value Date Recorded Sex Assigned at Female 08/19/2022 10:15 AM EDT Legal Sex Female 10:15 AM EDT Gender Identity Female 08/19/2022 10:15 AM EDT Sexual Orientation Straight 08/19/2022 10 :15 AM EDT documented as of this encounter Plan of Treatment Scheduled Referrals Name Type Priority Associated Diagnoses Orde r Schedule Referral to Neurosurgery Outpatient Referral Routine Cervical spine pain Cervical radiculopathy due to degenerative joint disease of spine Expected: 05/28/2024 (Approximate), Expires: 05/28/2025 documented as of this encounter Visit Diagnoses Diagnosis Cervical spine pain- Primary Cervical radiculopathy due to degenerative joint disease of spine documented in this encounter Additional Health Concerns Assessment Noted Time PHQ-9 Depression Total Score: 10 024 11:02 AM EDT documented as of this encounter Care Teams Car Clerk Pullman Relationship Specialty Start Date End Date Sima Kaur MD [address] [place] [address] PCP - General Family Medicine 11/28/20 documented as of this encounter
--- OUTSIDE RECORDS SUMMARY | 2024-11-10 10:40 | XMS_ITS | Encounter Summary ---
Author Organization [facility] Address [address] [facility] 200 [place] [address] Phone Care Team Providers Care Merchandising Internship Name Role Phone Sima Kaur MD Primary Care Provider + [phone] Reason for Visit * Reason Comments Med Refill Encounter Details Date Type Department Care Team (Late Contact Info) Description 10/23/2024 Refill [facility] [address] [place] [address] Fazal Ohara MD [address] [facility] 204 [place] [address] Social History Tobacco Use Types Packs/Day Years Used Date Smoking Tobacco: Every Day Cigarettes 0.5 42.1 Started: 10/20/1982 Smokeless Tobacco: Never Alcohol Use Standard Drinks/Week Comments Not Currently 0 (1 standard drink = 0.6 oz pur e alcohol) Comments Unknown Sex and Gender Information Value Date Recorded Sex Assigned at Not on file Legal Sex Female 4:41 PM EST Gender Identity Not on file Sexual Orientation Not on file documented as of this encounter Plan of Treatment Upcoming Encounters Date Type Department Care Team (Late st Contact Info) Description 07/04/2025 1:00 PM EDT Office Visit [facility] the [address] [place] [address] Fazal Ohara MD [address] [facility] 204 [place] [address] documented as of this encounter Visit Diagnoses Not on filedocumented in this encounter Care Teams Merchandising Internship Relationship Specialty Start Date End Date Sima Kaur MD [address]00 [place] [address] PCP - General Gunite Mixer 05/24/21 documented as of this encounter
--- OUTSIDE RECORDS SUMMARY | 2024-11-10 10:40 | XMS_ITS | Encounter Summary ---
Author Organization [facility] Address [address] [facility] 200 [place] [address] Phone Care Team Providers Care Manager Economic Name Role Phone Sima Kaur MD Primary Care Provider + [phone] Reason for Visit * Reason Comments Med Refill Encounter Details Date Type Department Care Team (Late Contact Info) Description 07/03/2022 Refill [facility] [address] [place] [address] Blayne Corral MD Social History Tobacco Use Types Packs/Day Years [...] Upcoming Encounters Date Type Department Care Team ([facility] Contact Info) Description 07/04/2025 1:00 PM EDT Office Visit [facility] [address] [place] [address] Fazal Ohara MD 9[address] [facility] 204 [place] [address] documented as of this encounter Visit Diagnoses Not on filedocumented in this encounter Care Teams Manager Economic Relationship Specialty Start Date End Date Sima Kaur MD [address] [place], [place] [phone] PCP - General Pressure Sealer And Tester 05/24/21 documented as of this encounter
--- OUTSIDE RECORDS SUMMARY | 2024-11-10 10:40 | XMS_ITS | Clinical Summary ---
Author Organization [facility] Address [address] [place] [address], [place] [address] Care Team Providers Care Operational Assistant Name Role Phone Sima Kaur MD Primary Care Provider + [phone] Allergies Active Allergy Reactions Criticality Noted Date Comments Amoxicillin 04/27/2021 Other reaction(s): GI Problems Clavulanic Acid 04/27/2021 Clonidine Other (see comments) 05/24/2021 Medications cholecalciferol (VITAMIN D-3) 25 MCG (1000 UT) capsule Take 1 capsule by mouth 1 (one) time each day Active glipiZIDE (GLUCOTROL XL) 5 MG 24 hr tablet Take 20 mg by mouth 1 (one) time each day with breakfast 05/09/20 21 Active hydroCHLOROthia zide 25 MG tablet Take 25 mg by mouth every morning 04/09/20 21 Active atenolol (TENORMIN) 50 MG tablet Take 75 mg by mouth 1 (one) time each day 03/08/20 21 Active simvastatin (ZOCOR) 20 MG tablet Take 20 mg by mouth 1 (one) time each day in the evening 03/09/20 21 Active cyclobenzaprine (FLEXERIL) 10 MG tablet Take 1 tablet by mouth 3 (three) times a day Active clonazePAM (KlonoPIN) 0.5 MG tablet Take by mouth at bed time Active atorvastatin (LIPITOR) 40 MG tablet 09/15/20 21 Active senna (SENOKOT) 8.6 MG tablet 08/24/20 21 Active Trulicity 0.75 MG/0.5ML solution pen-injector 08/27/20 21 Active amLODIPine (NORVASC) 2.5 MG tablet Take 1 tablet by mouth once daily 90 tablet 3 06/03/20 22 Active Additional Information Patient not taking.Reported on 06/24/2024 Dapagliflozin Propanediol 5 MG tablet Take 5 mg by mouth 1 (one) time each day 90 tablet 5 06/24/20 24 Active lisinopril 20 MG tablet Take 1 tablet by mouth once daily 90 tablet 10/24/19 25 Active lisinopril 20 MG tablet Take 1 tablet by mouth once daily 90 tablet 07/26/20 24 025 Discontinued Active Problems Problem Noted Date Diagnosed Date Contact dermatitis due to poison abraham 2023 06/24/2023 Overview (06/24/2023): Last Assessment & Plan: Wash with dish soap Baking soda paste Mupirocin ointment Benadryl for itch at night Keflex for possible secondary infection If no improvement in 1-2 days start prednisone 20mg daily Cancer cervix screening status 2023 0 06/24/2023 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 Cellulitis of right upper limb 06/09/2023 0 06/24/2023 At increased risk of osteoporosis 05/11/2023 Patient encounter status 05/09/2023 023 Overview (06/24/2023): Last Assessment & Plan: Discussed with patient re increase fresh fruit [...] STI testing Dental visit up to date Pain of left breast 03/04/2023 06/24/2023 Acute stress reaction 03/04/2023 06/24/2023 Overview (06/24/2023): Last Assessment & Plan: Due to of grandson Continue conversations and support with family Sleep hygiene Rest, meditation, prayer Can use ativan 0.5mg for uncontrolled symptoms of anxiety x 1-2 weeks Smoker 06/20/2022 Migraine 06/20/2022 Hypertensive disorder 06/20/2022 Diabetes mellitus 06/20/2022 Depressive disorder 06/20/2022 Stage 3a chronic kidney disease 06/20/2022 Chronic kidney disease stage 2 05/24/2021 Nicotine dependence 05/24/2021 Proteinuria 05/24/2021 Renal disorder due to type 2 diabetes mellitus 0 05/24/2021 Renal stone 05/24/2021 Vitamin D deficiency 05/24/2021 Restless legs 11/17/2018 06/24/2023 Overview (06/24/2023): Last Assessment & Plan: More active with her acute stress/grief Type 2 diabetes mellitus without complication 06/24/2023 Overview (06/24/2023): Last Assessment & Plan: At goal <7.0 continue Trulicity to 1.5mg weekly continue Glipizde 10 mg XL Continue Farixga 5mg daily Overweight 11/27/2015 06/24/2023 Mixed hyperlipidemia 11/27/2015 06/24/2023 Headache 11/27/2015 06/24/2023 Chronic back pain 11/27/2015 06/24/2023 Encounters Date Type Department Care Team Description 10/23/2024 Refill [facility] [address] [place], [place] [address] Fazal Ohara MD from Last 3 Months Immunizations Name Administration Dates Next Due Hepatitis B 08/18/2018,02/13/2018,04/04/2016 Influenza Split 08/16/2013,07/14/2012 Influenza, Quadrivalent, Pre servative Free 08/03/2021,07/11/2020,07/13/2019,2016 Influenza, Quadrivalent, Wit h Preservative 08/18/2018 Influenza, Unspecified 07/19/2022,07/31/2011 Moderna SARS-COV-2 05/28/2022,,02/15/2021,2020 Pneumococcal Conjugate 13-Valent 10/28/2017 Pneumococcal Conjugate Pcv 20 05/09/2023 Shingrix 10/31/2021,08/24/2021 Td 10/18/2008,10/06/1996 Tdap 11/18/2012 Zoster 08/06/2017 Family History Medical History Relation Comments Heart disease Father Hypertension Father Diabetes Mother Heart disease Mother Hypertension Mother Heart disease Sibling brother Relation Status Comments Father Mother Sibling Social History Tobacco Use Types Packs/Day Years [...] on file Sexual Orientation Not on file Last Filed Vital Signs Vital Sign Reading Time Taken Comments Blood Pressure 134/76 06/24/2024 1:45 PM EDT Pulse 62 06/24/2024 1:45 PM EDT Temperature - - Respiratory Rate - - Oxygen Saturation 97% 06/24/2024 1:45 PM EDT Inhaled Oxygen Concentration - - Weight 66.3 kg (146 lb 3.2 oz) 06/24/2024 1:45 P M EDT Height 154.9 cm (5' 1 ) 06/24/2024 1:45 PM EDT Body Mass Index 27.62 06/24/2024 1:45 PM EDT Plan of Treatment Upcoming Encounters Date Type Department Care Team (Late st Contact Info) Description 07/04/2025 1:00 PM EDT Office Visit [facility] the [address] [place] [address] Fazal Ohara MD 9[address] [facility] [address] [place] [address] Health Maintenance Due Date Last Done Comments Breast Cancer Screening 1957 Colorectal Cancer Screening: Annual FOBT 2006 Colorectal Cancer Screening: Colonoscopy 2006 Colorectal Cancer Screening: Sigmoidoscopy 2006 Diabetes: Ophthalmology Exam 11/19/2020 Diabetes: Pedal Pulse Checked 11/19/2020 Diabetes: Sensory Foot Exam 11/19/2020 Diabetes: Visual Foot Exam 11/19/2020 Influenza Vaccine (#1) 2024 , 08/03/2021, 07/11/2020, Additional history exists Diabetes: Hemoglobin A1C 08/25/2024 024, 06/09/2023, 07/12/2020 Hepatitis B Vaccine Aged Out 08/18/2018, 02/13/2018, 04/04/2016 No longer eligible based on patient's age to complete this topic Pneumococcal Vaccine: 65+ Years Completed 05/09/2023, 10/28/2017 Procedures Procedure Name Priority Date/Time Associated Diagnosis Comments BLOOD PANEL (HC) Routine 07/12/2020 12:0 0 AM EDT from Last 3 Months or Most Recently Relevant to Health Maintenance Results * (ABNORMAL) Blood Panel (07/12/2020 12:00 AM EDT) Potassium 4.3 3.5 - 5.1 mmol/L [facility] BUN 17 9 - 20 mg/dl [facility] Triglycerides 129 <150 mg/dl [facility] HDL 66 >40 mg/dl [facility] LDL,Direct 45 <130 mg/dl [facility] Hgb 13.4 13.0 - 16.5 g/dl [facility] Hemoglobin A1C 6.5(H) <5 % [facility] Sodium 139 137 - 145 mmol/L [facility] Creatinine 0.76 0.70 - 1.30 mg/dl [facility] Vitamin D, 25-OH, Total 45 20 - 100 ng/ml [facility] Platelets 243 140 - 440 k/uL [facility] Carbon Dioxide (CO2) 28 22 - 30 mmol/L [facility] Calcium 9.7 8.4 - 10.2 mg/dl [facility] eGFR Non- 87 >60 ml/min [facility] eGFR 93 >60 ml/min [facility] Cholesterol 105 <200 mg/dl [facility] Hematocrit 39.5 38 - 50 % [facility] 07/12/2020 us [facility] [id number] LICITED RESULTS Final Result [facility] from Last 3 Months or Most Recently Relevant to Health Maintenance Insurance [facility] ([id number]) [facility] ([id number]) Care Teams Operational Assistant Relationship Specialty Start Date End Date Sima Kaur MD [address] [place] [address] PCP - General Senior Ux Designer 05/24/21
--- OUTSIDE RECORDS SUMMARY | 2024-11-10 10:40 | XMS_ITS | Encounter Summary ---
Author Organization [facility] Address [address] [facility] 200 [place] [address] Phone Care Team Providers Care Flexible Babysitter Name Role Phone Sima Kaur MD Primary Care Provider + [phone] Reason for Visit * Reason Comments Med Refill Encounter Details Date Type Department Care Team (Late Contact Info) Description 06/03/2022 Refill [facility] [place] [address] [facility] 200 [place] [phone] Chester Alves MD [address] [address] Social History Tobacco Use Types Packs/Day [...] Visit [facility] the [address] [place] [phone] Fazal Ohara MD [address] [address] documented as of this encounter Visit Diagnoses Not on filedocumented in this encounter Care Teams Flexible Babysitter Relationship Specialty Start Date End Date Sima Kaur MD [address] [place] [address] PCP - General Braille Teacher 05/24/21 documented as of this encounter
--- OUTSIDE RECORDS SUMMARY | 2024-11-10 10:40 | XMS_ITS | Encounter Summary ---
Author Organization [facility] Address [address] [facility] 200 [place] [address] Phone Care Team Providers Care Field Staff Manager Name Role Phone Sima Kaur MD Primary Care Provider + [phone] Reason for Visit * Reason Comments Med Refill Encounter Details Date Type Department Care Team (Late Contact Info) Description 06/11/2023 Refill [facility] [address] [place] [address] Blayne [...] Upcoming Encounters Date Type Department Care Team ([facility] Contact Info) Description 07/04/2025 1:00 PM EDT Office Visit [facility] [address] [place] [address] Fazal Ohara MD 1434 [facility] 204 [place] [address] documented as of this encounter Visit Diagnoses Not on filedocumented in this encounter Care Teams Field Staff Manager Relationship Specialty Start Date End Date Sima Kaur MD [address] [place], [place] [phone] PCP - General Mechanical Apprentice 05/24/21 documented as of this encounter
--- OUTSIDE RECORDS SUMMARY | 2024-11-10 10:40 | XMS_ITS | Encounter Summary ---
Author Organization [facility] Address [address] [facility] 200 [place] [address] Phone Care Team Providers Care Mobile Patrol Officer Name Role Phone Sima Kaur MD Primary Care Provider + [phone] Reason for Visit * Reason Comments Med Refill Encounter Details Date Type Department Care Team (Late Contact Info) Description 05/12/2023 Refill [facility] [address] [place] [address] [...] Upcoming Encounters Date Type Department Care Team ([facility] Contact Info) Description 07/04/2025 1:00 PM EDT Office Visit [facility] [address] [place] [address] Fazal Ohara MD 6[address] [facility] [address] [place] [address] documented as of this encounter Visit Diagnoses Not on filedocumented in this encounter Care Teams Mobile Patrol Officer Relationship Specialty Start Date End Date Sima Kaur MD [address] [place], [place] [phone] PCP - General Seo Expert 05/24/21 documented as of this encounter
== END 2024-11-10 10:40 | disposition home or self-care (01) ==
PROVIDERS: PCP General Practice; Visit Provider Nurse Practitioner Family
DX: G43.709 Chronic migraine without aura, not intractable, without status migrainosus (principal); G25.81 Restless legs syndrome; G47.33 Obstructive sleep apnea (adult) (pediatric); G47.9 Sleep disorder, unspecified
CPT/HCPCS: 99214

== ENCOUNTER → 2024-11-10 09:49 | Outpatient (BNVA) | payer OTHER, SELFPAY | PROVIDERS: PCP General Practice; Visit Provider Nurse Practitioner Family | DX: G43.709 Chronic migraine without aura, not intractable, without status migrainosus (principal); G25.81 Restless legs syndrome; G47.33 Obstructive sleep apnea (adult) (pediatric) | CPT/HCPCS: 99212 ==

== ENCOUNTER 2024-11-16 09:11 | Outpatient (REF) | payer OTHER, SELFPAY ==
--- NOTE | ~2024-11-16 | FL_ITS ---
EXAMINATION: XR BARIUM SWALLOW CLINICAL INFORMATION: Dysphagia. COMPARISON: None available. TECHNIQUE: Routine upright and prone lying down barium swallow was performed with thick barium and effervescent granules. FINDINGS: Following oral administration of thick barium in upright view there is normal perfusion bolus from the oral cavity through the pharynx, esophagus into stomach without obstruction, narrowing or extrinsic compression. No laryngeal penetration or aspiration seen. There is a ventral plate and screw at C5-6 disc level for fusion. On placing patient prone oblique and oral administration of thick barium there is normal and the great flow seen through the entire esophagus without any obstruction or narrowing. There is no gastroesophageal reflux seen in lying supine view. FLUOROSCOPY TIME: 1 minute 46 seconds DOSE AREA PRODUCT: 656.9 uGy-m2 (microgray-meter squared) FL/FL barium swallow IMPRESSION: Unremarkable barium swallow examination an upright and lying position. Electronically signed by: Johann Connelly MD 11/17/2024 08:[address] [facility]
--- OUTSIDE RECORDS SUMMARY | 2024-11-16 09:38 | XMS_ITS | Encounter Summary ---
Author Organization [facility] Address [address] 7t [place] [address] Care Team Providers Care Tenderizer Tender Name Role Phone Sima Kaur MD Primary Care Provider [phone] Encounter Details Date Type Department Care Team (Late st Contact Info) Description 01/10/2023 Abstract [facility] [address] [place], [place] [phone] Sima Kaur MD [address] [place], [place] [phone] Social History Tobacco Use Types Packs/Day Years [...] CYTOLOGY ORDERABLES F inal Result [facility] [address], [place] [address] documented in this encounter Visit Diagnoses Not on filedocumented in this encounter Care Teams Tenderizer Tender Relationship Specialty Start Date End Date Sima Kaur MD [address] [place] [address] PCP - General Family Medicine 11/28/20 documented as of this encounter
--- OUTSIDE RECORDS SUMMARY | 2024-11-16 09:38 | XMS_ITS | Encounter Summary ---
Author Organization [facility] Address [address] [facility] 200 [place] [address] Phone Care Team Providers Care Tube Winder Name Role Phone Sima Kaur MD Primary Care Provider + [phone] Reason for Visit * Reason Comments Med Refill Encounter Details Date Type Department Care Team (Late Contact Info) Description 05/12/2023 Refill [facility] [address] [place] [address] [...] Upcoming Encounters Date Type Department Care Team ([facility] Contact Info) Description 07/04/2025 1:00 PM EDT Office Visit [facility] [address] [place] [address] Fazal Ohara MD [address] [facility] 204 [place] [address] documented as of this encounter Visit Diagnoses Not on filedocumented in this encounter Care Teams Tube Winder Relationship Specialty Start Date End Date Sima Kuar MD [address] [place], [place] [phone] PCP - General Job Development Specialist 05/24/21 documented as of this encounter
--- OUTSIDE RECORDS SUMMARY | 2024-11-16 09:38 | XMS_ITS | Encounter Summary ---
Author Organization [facility] Address [address] [facility] 7t [place] [address] Care Team Providers Care Car Record Clerk Name Role Phone Sima Kaur MD Primary Care Provider [phone] Encounter Details Date Type Department Care Team (Late st Contact Info) Description 06/20/2023 Orders Only [facility] 230 [place], [place] [phone] Sima Kaur MD [address] [place], [place] [phone] Poison abraham dermatitis (Primary Dx) Social History [...] as of this encounter Care Teams Car Record Clerk Relationship Specialty Start Date End Date Sima Kaur MD [address] [place], [place] [phone] PCP - General Family Medicine 11/28/20 documented as of this encounter
--- OUTSIDE RECORDS SUMMARY | 2024-11-16 09:38 | XMS_ITS | Encounter Summary ---
Author Organization [facility] Address [address] [facility] 200 [place] [address] Phone Care Team Providers Care Dock Operator Name Role Phone Sima Kaur MD Primary Care Provider + [phone] Reason for Visit * Reason Comments Med Refill Encounter Details Date Type Department Care Team (Late Contact Info) Description 07/03/2022 Refill [facility] [address] [place] [address] [...] Upcoming Encounters Date Type Department Care Team ([facility] Contact Info) Description 07/04/2025 1:00 PM EDT Office Visit [facility] [address] [place] [address] Fazal Ohara MD 2833 [facility] 204 [place] [address] documented as of this encounter Visit Diagnoses Not on filedocumented in this encounter Care Teams Dock Operator Relationship Specialty Start Date End Date Sima Kaur MD [address] [place], [place] [phone] PCP - General Legal Practice Manager 05/24/21 documented as of this encounter
--- OUTSIDE RECORDS SUMMARY | 2024-11-16 09:38 | XMS_ITS | Encounter Summary ---
Author Organization [facility] Address [address] [facility] 200 [place] [address] Phone Care Team Providers Care Automation Engineer Name Role Phone Sima Kaur MD Primary Care Provider + [phone] Reason for Visit * Reason Comments Med Refill Encounter Details Date Type Department Care Team (Late Contact Info) Description 06/11/2023 Refill [facility] [address] [place] [address] [...] Upcoming Encounters Date Type Department Care Team ([facility] Contact Info) Description 07/04/2025 1:00 PM EDT Office Visit [facility] [address] [place] [address] Fazal Ohara MD [address]1 [facility] 204 [place] [address] documented as of this encounter Visit Diagnoses Not on filedocumented in this encounter Care Teams Automation Engineer Relationship Specialty Start Date End Date Sima Kaur MD [address] [place], [place] [phone] PCP - General Cancer Registrar 05/24/21 documented as of this encounter
--- OUTSIDE RECORDS SUMMARY | 2024-11-16 09:38 | XMS_ITS | Encounter Summary ---
Author Organization [facility] Address [address] [facility] [address] [place] [address] Phone Care Team Providers Care Special Needs Bus Driver Name Role Phone Sima Kaur MD Primary Care Provider + [phone] Reason for Visit * Reason Comments Med Refill Encounter Details Date Type Department Care Team (Late Contact Info) Description 10/23/2024 Refill [facility] [address] [place] [address] Fazal Ohara MD [address] [facility] [address] [place] [address] Social History Tobacco Use Types [...] Visit [facility] [address] [place] [address] Fazal Ohara MD [address] [facility] [address] [place] [address] documented as of this encounter Visit Diagnoses Not on filedocumented in this encounter Care Teams Special Needs Bus Driver Relationship Specialty Start Date End Date Sima Kaur MD [address] [place] [address] PCP - General Consumer Loan Manager 05/24/21 documented as of this encounter
--- OUTSIDE RECORDS SUMMARY | 2024-11-16 09:38 | XMS_ITS | Encounter Summary ---
Author Organization [facility] Address [address] [facility] [address] [place] [address] Phone Care Team Providers Care Stenotypist Name Role Phone Sima Kaur MD Primary Care Provider + [phone] Reason for Visit * Reason Comments Med Refill Encounter Details Date Type Department Care Team (Late Contact Info) Description 06/03/2022 Refill [facility] [address] [facility] [address] [place] [id number] Chester Alves MD [address] [address] Social History Tobacco Use Types [...] Visit [facility] [address] [place] [phone] Fazal Ohaar MD [address] [address] documented as of this encounter Visit Diagnoses Not on filedocumented in this encounter Care Teams Stenotypist Relationship Specialty Start Date End Date Sima Kaur MD [address] [place] [address] PCP - General Pin Cleaner 05/24/21 documented as of this encounter
--- OUTSIDE RECORDS SUMMARY | 2024-11-16 09:38 | XMS_ITS | Encounter Summary ---
Author Organization [facility] Address [address] [facility] [address] [place] [address] Care Team Providers Care Reconciler Name Role Phone Sima Kaur MD Primary Care Provider [phone] Reason for Visit * Reason Onset Date Comments Nurse Triage 09/08/2024 ER Follow-up 09/08/2024 Encounter Details Date Type Department Care Team ([facility] st Contact Info) Description 09/08/2024 Telephone [facility] MEDICINE [address] [place], [place] [phone] Sima Kaur MD [address] [place], [place] [phone] Nurse Triage; ER Follow-up Social History Tobacco [...] EST Triage call Pt was seen in [facility] for left ear infection. Pt was prescribed [...] 09/04/24. Pt is advised to come to [facility] today open till 8pm. No available apts [...] ED visit on : Date: 09/04/24 Hospital: [facility] Seen for: Ear infection Pt stated she is having trouble with the medication prescribed. Pt reported following symptoms earache, swollen grands, and coughing Patient advised will forward to triage nurse. Contact pt at [phone] documented in this encounter Plan of Treatment Not on file documented as of this encounter Visit Diagnoses Not on filedocumented in this encounter Additional Health Concerns Assessment Noted Time PHQ-9 Depression Total Score: 10 024 11:02 AM EDT documented as of this encounter Care Teams Reconciler Relationship Specialty Start Date End Date Sima Kaur MD [address] [place] [address] PCP - General Family Medicine 11/28/20 documented as of this encounter
--- OUTSIDE RECORDS SUMMARY | 2024-11-16 09:38 | XMS_ITS | Encounter Summary ---
Author Organization [facility] Address [address] [facility] 7[address] [place] [address] Care Team Providers Care Needle Straightener Name Role Phone Sima Kaur MD Primary Care Provider [phone] Reason for Referral * Consultation (Routine) - Closed Specialty Diagnoses / Procedures Referred By Contradha t Referred To Contact Neurosurgery Diagnoses Cervical spine pain Cervical radiculopathy due to degenerative joint disease of spine Sima Kaur MD [address] [place] [address] Phone: tel: fax: Sheridan Valentine MD [address] [place] [address], [address] [place] [address] Phone: tel: fax: Referral ID Status Reason Start Date Expiration Date V isits Requested Visits Authorized [id number] Closed Specialty Services Required 05/28/2024 05/28/2025 1 0 Encounter Details Date Type Department Care Team (Late st Contact Info) Description 05/28/2024 Orders Only [facility] MEDICINE [address] [place], [place] [phone] Sima Kaur MD [address] [place], [place] [phone] Cervical spine pain (Primary Dx); Cervical radiculopathy [...] documented as of this encounter Care Teams Needle Straightener Relationship Specialty Start Date End Date Sima Kaur MD [address] [place] [address] PCP - General Family Medicine 11/28/20 documented as of this encounter
--- OUTSIDE RECORDS SUMMARY | 2024-11-16 09:38 | XMS_ITS | Encounter Summary ---
Author Organization [employer] Address [address] [facility] [address] [place] [address] Care Team Providers Care E Business Project Manager Name Role Phone Sima Kaur MD Primary Care Provider [phone] Reason for Visit * Reason Comments Med Refill Encounter Details Date Type Department Care Team (Late st Contact Info) Description 11/06/2024 Refill [facility] MEDICINE [address] [place], [place] [phone] Sima Kaur MD [address] [place], [place] [phone] Type 2 diabetes mellitus without complication, without long-term current use of insulin ([facility]) Social History Tobacco Use Types Packs/Day Years [...] complication, without long-term current use of insulin ([facility]) documented in this encounter Additional Health Concerns Assessment Noted Time PHQ-9 Depression Total Score: 10 024 11:02 AM EDT documented as of this encounter Care Teams E Business Project Manager Relationship Specialty Start Date End Date Sima Kaur MD [address] [place] [address] PCP - General Family Medicine 11/28/20 documented as of this encounter
--- OUTSIDE RECORDS SUMMARY | 2024-11-16 09:38 | XMS_ITS | Clinical Summary ---
Author Organization [facility] Address [address] [place] [address], [place] [address] Care Team Providers Care Leather Leveler Name Role Phone Sima Kaur MD Primary Care Provider + [phone] Allergies Active Allergy Reactions Criticality Noted Date [...] 10/23/2024 Refill [facility] [address] [place], [place] [address] Fazal Ohara MD from Last 3 Months [...] Visit [facility] [address] [place] [address] Fazal Ohara MD [address] [facility] [address] [place] [address] Health Maintenance Due Date Last [...] % PVNMA 07/12/2020 us [facility] [id number] LICITED RESULTS Final Result PVNMA from Last 3 Months or Most Recently Relevant to Health Maintenance Insurance [facility] ([id number]) [facility] ([id number]) Care Teams Leather Leveler Relationship Specialty Start Date End Date Sima Kaur MD [address] [place] [address] PCP - General Bath Tester 05/24/21
--- OUTSIDE RECORDS SUMMARY | 2024-11-16 09:38 | XMS_ITS | Clinical Summary ---
Author Organization [employer] Address [address] [place] [address] Care Team Providers Care Assembly Cleaner Name Role Phone Sima Kaur MD Primary Care Provider [phone] Allergies Active Allergy Reactions Criticality Noted Date [...] HEADACHE FOR 7 DAYS Active HYDROcodone-yvette taminophen (Woronoco) 5-325 MG tablet TAKE 1 TABLET BY [...] complication, without long-term current use of insulin ([facility]) USE 1 STRIP TO CHECK GLUCOSE TWICE [...] complication, without long-term current use of insulin ([facility]) INJECT 1.5 MG (0.5 ML) SUBCUTANEOUSLY ONCE A WEEK Active predniSONE (Deltasone) 20 MG tablet Take 40 mg by mouth Once per day. Active melatonin 5 MG tabletIndicatio ns:Primary insomnia Take 2 tablets (10 mg) by mouth at bedtime. 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 05/24/2021 Assessment & Plan (06/12/2023 8:48 PM EDT): cont directory clerk followup Assessment & Plan (05/09/2023 10:10 AM EDT): Pt has a follow up with directory clerk next month Nicotine dependence 05/24/2021 Assessment & [...] of Trulicity secondary to medication availability -called [facility] pharmacy and confirmed Trulicity 1.5 mg [...] Type Department Care Team Description 11/06/2024 Refill [facility] [address] [place] [address] Sima Kaur MD Type 2 diabetes mellitus without complication, without long-term current use of insulin ([facility]) 09/25/2024 Refill [facility] [address] [place] [address] Sima Kaur MD Essential hypertension 09/08/2024 3:40 PM EST Office Visit [facility] [address] [place] [address] Sunshine Jacques MD Bilateral otitis media, unspecified otitis media type (Primary Dx) 09/08/2024 Telephone [facility] [address] [place] [phone] Sima Kaur MD Nurse Triage; ER Follow-up 09/04/2024 Orders Only GENERIC EXTERNAL DATA DEPARTMENT Provider, Generic External Data 08/26/2024 Orders Only GENERIC EXTERNAL DATA DEPARTMENT Provider, Generic External Data 08/16/2024 9:15 AM EDT Office Visit [facility] [address] [place] [phone] Sima Kaur MD Type 2 diabetes mellitus without complication, without long-term current use of insulin ([facility]) (Primary Dx); Encounter for immunization; Primary insomnia; Primary hypertension; Type 2 diabetes mellitus with diabetic nephropathy, without long-term current use of insulin ([facility]); Mixed hyperlipidemia; Chronic migraine without aura without [...] Acid (09/04/2024 8:31 PM EST) IDNOW SERIAL# [id number] [facility] Strep A Nucleic Acid Negative Negative [facility] Comment:All test results mus t be [...] GENERAL ORDERABLES Final Result Performing Organization Address [facility] Co de Phone Number [facility] [address] [place] [address] [phone] * SARS-CoV-2 RNA, Influenza A/B, and RSV RNA, Ql NAAT (09/04/2024 8:31 PM EST) Influenza A PCR NEGATIVE Negative [facility] Influenza B PCR NEGATIVE Negative [facility] Resp Syncy Virus RNA Qual PCR NEGATIVE Negative [facility] SARS COV2 PCR NEGATIVE Negative [facility] Comment:All test results mus t be [...] use by authorized laboratories.Testing performed on the [employer] GeneXpert utilizingreal-time RT-PCR.All SARS CoV2 and positive influenza A/B results arereported to [facility]. 09/04/2024 8:31 PM EST 09/04/2024 8:34 PM EST Generic External Data Provider LAB MICROBIOLOGY - GENERAL ORDERABLES Final Result Performing Organization Address [facility] Co de Phone Number [facility] [address] [place] [address] [phone] * XR Chest 2 Views (09/04/2024 8:26 PM EST) Anatomical Region Laterality Modality Chest Radiographic Bettye ging 09/04/2024 8:26 PM EST Narrative 09/04/2024 9:42 PM EST ? [facility] ?[address] ?[place] [address] ?XRay Report ? Signed ? Patient: Sukh,Stephanie ?MR#: MM ?? [id number] ? : 1955 ?Acct:[id number] ? Age/Sex: 69 / F ?ADM Date: 09/04/24 ? Loc: HO.ED ? Attending Dr: ? Ordering Physician: Lin Colon ?? Date of Service: 09/04/24 ?? Procedure(s): XR chest 2V ?? Accession Number(s): [id number] ? cc: Sima Kaur; Lin Colon ? [...] ? DD/ 25 ? TD/TT: 09/04/242037 ? Business Unit Controller: SS ? Procedure Note Nimco Martinez - 09/04/[address] [address] XRay Report Signed Patient: Stephanie LuzMR#: MM [id number] : 7Acct:[id number] Age/Sex: 69 / FADM Date: 09/04/24 Loc: HO.ED Attending Dr: Ordering Physician: Lin Colon Date of Service: 09/04/24 Procedure(s): XR chest 2V Accession Number(s): [id number] cc: Sima Kaur; Lin Colon EXAMINATION: XR [...] in OV> 09/04/242138 DD/ 25 TD/TT: 09/04/242037 Business Unit Controller: SS [facility] External Provider IMG XR PROCEDURES Edited Result - Final * BI Mammogram Diagnostic Tomosynthesis added bilateral (08/31/2024 1:25 PM EST) Anatomical Region Laterality Modality Breast Left Mammography 08/31/2024 1:25 PM EST Narrative 08/31/2024 2:37 PM EST ? [facility] ? [address] ?[place] [address] ? Mammography Report ? Signed ? Patient: Sukh,Stephanie ?MR#: MM ?? [id number] ? : 1955 ?Acct:[id number] ? Age/Sex: 69 / F ?ADM Date: 11/12/24 ? Loc: HO.MAMMO ? Attending Dr: Sima Kaur MD ? Ordering Physician: Sima Kaur ?Results: 1Negative ? Date of Service: 08/31/24 ?Follow Up: 1 Year From Orig ?? inal Mammogram ? Procedure(s): MM tomosynthesis added view BI ?? Accession Number(s): [id number] ? cc: Sima Kaur ? EXAMINATION: ?? [...] DD/ 1325 ? TD/TT: 08/31/24 1346 ? Business Unit Controller: ? Procedure Note Donzora, Image - 08/31/2024 [facility] [address] [place] [address] Mammography Report Signed Patient: Stephanie LuzMR#: MM [id number] : 7Acct:[id number] Age/Sex: 69 / FADM Date: 08/31/24 Loc: HO.MAMMO Attending Dr: Sima Kaur MD Ordering Physician: Kleber Kaurults: 1Negative Date of Service: 08/31/24Follow Up: 1 Year From Orig inal Mammogram Procedure(s): MM tomosynthesis added view BI Accession Number(s): [id number] cc: Sima Kaur EXAMINATION: MM DIAGNOSTIC DIGITAL [...] 08/31/24 1434 DD/ 1325 TD/TT: 08/31/24 1346 Business Unit Controller: us Sima Kaur MD IMG BI PROCEDURES Final Result * XR ABDOMEN W DECUBITUS (08/26/2024 1:40 PM EST) Anatomical Region Laterality Modality Abdomen Radiographic Bettye ging 08/26/2024 1:40 PM EST Narrative 10/29/2024 12:00 PM EST ? [facility] ?[address] ?[place] [address] ?XRay Report ? Signed ? Patient: Sukh,Stephanie ?MR#: MM ?? [id number] ? : 1955 ?Acct:[id number] ? Age/Sex: 69 / F ?ADM Date: 11/07/24 ? Loc: HO.LAB ? Attending Dr: Carey TATE ? Ordering Physician: Carey Carson ?? Date of Service: 08/26/24 ?? Procedure(s): XR abdomen w decubitus ?? Accession Number(s): [id number] ? cc: Carey Carson; Sima Kaur ? [...] EST ?? RP ? Dictated By: ?Lamberto Gzumán MD ? Signed By: ?<Electronically signed by Lamberto Guzmán MD in OV> ?10/29/24 1157 ? DD/ 1340 ? TD/TT: 08/26/24 1350 ? Business Unit Controller: HB ? Procedure Note Juan, Image - 10/29/2024 [place] [address] XRay Report Signed Patient: Stephanie LuzMR#: MM [id number] : 7Acct:[id number] Age/Sex: 69 / FADM Date: 08/26/24 Loc: HO.LAB Attending Dr: Carey TATE Ordering Physician: Carey Carson Date of Service: 08/26/24 Procedure(s): XR abdomen w decubitus Accession Number(s): [id number] cc: Carey Carson; Sima Kaur EXAMINATION: XR [...] MD 10/29/2024 11:57 AM EST RP Workstation: [address] [employer] Dictated By: Lamberto Guzmán MD Signed By: <Electronically signed by Lamberto Guzmán MD in OV> 10/29/24 1157 DD/ 1340 TD/TT: 08/26/24 1350 Business Unit Controller: HB [facility] External Provider IMG XR PROCEDURES Final Result * TSH with Reflex to Free T4 (08/26/2024 12:54 PM EST) TSH reflex Free T4 1.20 0.32 - 4.0 uIU/mL [facility] 08/26/2024 12:5 4 PM EST 08/26/2024 12:54 PM EST Generic External Data Provider LAB BLOOD ORDERAB LES Final Result [facility] [address] [place] [address] [phone] * Tissue Transglutaminase (tTG) Antibody (IgG) (08/26/2024 12:54 PM EST) Tissue Transglutaminase Antibody IgG 5.2 U/mL [facility] Comment:Value Interpretation ----- <15.0 Antibody not detected> or = 15.0 Antibody detectedTHIS TEST WAS PERFORMED AT:[id number] [place] [phone] NEWMAN MD 08/26/2024 12:5 4 PM EST 08/26/2024 12:54 PM EST Generic External Data Provider LAB BLOOD ORDERAB LES Final Result Performing Organization Address [facility] Co de Phone Number [facility] [address] [place] [phone] * (ABNORMAL) Tissue Transglutaminase Antibody, IgA (08/26/2024 12:54 PM EST) Pathologist [facility] Transglutaminase IgA 134.2(A) U/mL [facility] Comment:Value Interpretation ----- <15.0 Antibody not detected> or = 15.0 Antibody detectedTHIS TEST WAS PERFORMED AT:[id number] [place] [phone] NEWMAN MD 08/26/2024 12:5 4 PM EST 08/26/2024 12:54 PM EST Generic External Data Provider LAB BLOOD ORDERAB LES Final Result Performing Organization Address [facility] Co de Phone Number [facility] [address] [place] [phone] * (ABNORMAL) POCT A1C (08/16/2024 9:18 AM EDT) Pathologist [facility] Hemoglobin A1C 7.4(A) 4.0 - 6.0 % QC Media Lot # [id number] Lot# Expiration Date ,697,084 Blood 08/16/2024 9:18 AM EDT Sima Kaur MD POINT OF CARE TEST ENTER/EDIT ORDERABLES Final Result * (ABNORMAL) POCT glucose manually resulted (08/16/2024 9:17 AM EDT) Pathologist [facility] Glucose Blood, POC 248(A) 60 - 200 mg/dL [employer] Lot # [id number] Lot# Expiration Date ,645,903 Blood Capillary blood specimen / Unknown 08/16/2024 9:17 AM EDT us Sima Kaur MD POINT OF CARE TEST ENTER/EDIT ORDERABLES Final Result * BI Mammogram Screening Tomosynthesis Bilateral (07/01/2024 11:30 AM EDT) Anatomical Region Laterality Modality Breast Bilateral Mammography 07/01/2024 11:3 0 AM EDT Narrative 07/14/2024 7:50 PM EDT ? [facility] ? [address] ?[place] [address] ? Mammography Report ? Signed ? Patient: Sukh,Stephanie ?MR#: MM ?? [id number] ? : 1955 ?Acct:[id number] ? Age/Sex: 69 / F ?ADM Date: 07/01/24 ? Loc: HO.MAMMO ? Attending Dr: Sima Kaur MD ? Ordering Physician: Sima Kaur ?Results: 0Incomple ?? te: Needs Additional Imaging Evaluation ? Date of Service: 07/01/24 ?Follow Up: Additional Imagi ?? ng ? Procedure(s): MM tomosynthesis screening BI ?? Accession Number(s): [id number] ? cc: Sima Kaur ? EXAMINATION: ?? [...] DD/ 1130 ? TD/TT: 07/01/24 1149 ? Business Unit Controller: ? Procedure Note Juan, Nimco - 07/14/2024 [place] [facility] [address] [place] [address] Mammography Report Signed Patient: Stephanie LuzMR#: MM [id number] : 7Acct:[id number] Age/Sex: 69 / FADM Date: 07/01/24 Loc: HO.MAMMO Attending Dr: Sima Kaur MD Ordering Physician: Kleber Kaurults: 0Incomple te: Needs Additional Imaging Evaluation Date of Service: 07/01/24Follow Up: Additional Imagi ng Procedure(s): MM tomosynthesis screening BI Accession Number(s): [id number] cc: Sima Kaur EXAMINATION: MM SCREENING DIGITAL [...] OV> 07/14/241946 DD/ 1130 TD/TT: 07/01/24 1149 Business Unit Controller: Sima Kaur MD IMG BI PROCEDURES Edited Resul t - Final * Hepatitis C Antibody with Reflex to HCV, RNA, Quantitative, Real-Time PCR (05/25/2024 11:37 AM EDT) Hepatitis C Antibody Nonreactive Nonreactive [facility] Comment:Antibodies to HCV no t detected; does not exclude early acuteHCV infection. Blood Venous blood specimen / Unknown 05/25/2024 11:37 AM EDT 05/25/2024 1:24 PM EDT Sima Kaur MD LAB BLOOD ORDERABLES Final Res ult [facility] [address] [place] [phone] * (ABNORMAL) Lipid Panel, Standard (11/24/2023 12:45 PM EST) Triglycerides 186(H) <150 mg/dL [facility] Comment:Desirable Triglyceri de: less than 150 mg/dLBorderline High Triglyceride 150-199 mg/dLHigh Triglyceride: 200-499 mg/dLVery High Triglyceride: greater than or equal to 5OO mg/dL Cholesterol 103 <200 mg/dL [facility] Comment:Desirable Cholestero l: less than 200 mg/dLBorderline High Cholesterol: 200-239 mg/dLHigh Cholesterol: greater than 239 mg/dL LDL Cholesterol Calculated 37 <100 mg/dL [facility] Comment:Desirable LDL: less than 100 mg/dLNear Optimal/Above Optimal LDL: 110- 129 mg/dLBorderline High LDL: 130-159 mg/dLHigh LDL: 160-189 mg/dLVery High LDL: greater than or equal to 190 mg/dL HDL Cholesterol 29(L) >40 mg/dL [facility] Comment:Desirable HDL: great er than 40 mg/dL Note: This HDL assay may give artificially low results in patients with liver disease. Blood Venous blood specimen / Unknown 11/24/2023 12:45 PM EST 11/24/2023 1:10 PM EST Sima Kaur MD LAB BLOOD ORDERABLES Final Res ult Performing Organization Address [facility]/ZIP Co de Phone Number [facility] [address] [place] [phone] * HPV mRNA E6/E7 w/Reflex to HPV Genotypes 16, 18/45 (2023 12:00 AM EDT) HPV nRNA E6/E7 Not Detected Not Detected [facility] Comment:Methodology: Transcr iption-Mediated AmplificationThis assay detects E6/E7 viral messenger RNA (mRNA) from 14high-risk HPV types (16,18,31,33,35,39,45,51,52,56,58,59,66,68).Cervical sources are required for HPV testing.If a vaginal source from a patient who has had atotal hysterectomy with removal of cervix wassubmitted, please contact the testing laboratoryfor alternative testing options.For additional information, please refer tohttp://education.[employer]/faq/YPK592x3(This link if provided for information/educational purposes only.)THIS TEST WAS PERFORMED AT:[email or web address] [place] [phone] NEWMAN MD HPV mRNA E6/E7 [facility] HPV 16 RNA [facility] HPV 18/45 RNA [facility] 2023 06/16/2023 1:5 0 PM EDT Sima Kaur MD LAB CYTOLOGY ORDERABLES Final Result Performing Organization Address City/[facility]/ZIP Co de Phone Number [facility] [address] [place] [phone] * Pap Smear (2023) 2023 06/16/2023 1:5 0 PM EDT Narrative [facility] - 06/28/2023 2:14 PM EDT ----- ------- Name: Stephanie Luz ? Age/Sex: 68/F ? : 1955 Unit#: [id number] ?? Attend Dr: Sima Kaur ?Re06/13/23 ?Status: DEP REF ? Location: HO.LNP ?Disch: ? ----- ------- SPEC : [id number] ?RECD: 06/16/23-7150 ? STATUS: ??SOUT ? REQ NUM: [id number] ? CAMI: 06/13/23- ? SUBM DR: Sima Kaur ? ENTERED: ??06/16/23-379 ?SP TYPE: Pap Smr ?OTHR : ? ORDERED: ??Pap Smear ? Interpretation ?? Satisfactory for evaluation. ?? Negative for intraepithelial lesion or malignancy. ? HPV mRNA E6/E7: ?NOT DETECTED ? This assay detects E6/E7 viral messenger RNA (mRNA) from 14 high-risk HPV types (16, 18, ?? 31, 33, 35, 39, 45, 51, 52, 56, 58, 59, 66, 68) ? HPV testing performed by [facility], [place], [place]. ??See reference laboratory ?? portion of the EMR for entire report. ?Clinical Information LMP:Unknown date Previous PAP test:Unknown date/findings ? Material Received ?? ThinPrep-Vaginal/Cervical ----- ------- Signed (signature on file) Lin Davis Darlene 06/28/23 1414 ? ----- ------- ? END OF REPORT ? Sima Kaur MD LAB CYTOLOGY ORDERABLES Final Result [facility] [address] [place] [address] [phone] from Last 3 Months or Most Recently Relevant to Health Maintenance Insurance * Guarantor: Sukh Stephanie Account Type Relation to Patient Date of Phone Billing Address Personal/Family Self [address] JULIO Sheehan21 Care Teams Assembly Cleaner Relationship Specialty Start Date End Date Sima Kaur MD [address] [place] [phone] PCP - General Family Medicine 11/28/20
--- OUTSIDE RECORDS SUMMARY | 2024-11-16 09:38 | XMS_ITS | Data Portability ---
Author Organization [place] [employer] Address [address] [place] [id number] Care Team Providers Care Sales Office Assistant Name Role Phone [facility] Referring Provider [facility] Referring Provider Assessment No assessment recorded. Plan of Treatment Reminders Order Date Submit Date Provider Last Modified By Organization Details Last Modified Time Details Appointments None record ed. Lab None record ed. Referral None record ed. Procedures None record ed. Surgeries None record ed. Imaging None record ed. Medication Orders None record ed. Patient TargetsNo targets recorded. Patient InstructionsNo instructions recorded. Reason for Referral None Reported. Medical Equipment None Reported. Medications Name Sig Start Date Stop Date Status Note LastModified by Organization Details LastModified Time relion preppad 100ct USE 1 DIRECTED TWICE DAILY active Not Available Not Available Not Available cyclobenzapr ine 10 mg tablet TAKE 1 TABLET BY MOUTH EVERY 8 HOURS NEEDED FOR BACK PAIN active Not Available Not Available No t Available atorvastatin 40 mg tablet TAKE 1 TABLET BY MOUTH AT BEDTIME active Not Available Not Available No t Available BD Alcohol Swabs USE 1 SWAB EXTERNALLY TWICE DAILY active Not Available Not Available Not Available nicotine 14 mg/24 hr daily transdermal patch APPLY 1 PATCH TOPICALLY ONCE DAILY active Not Available Not Available N ot Available senna 8.6 mg tablet TAKE 1 TABLET BY MOUTH ONCE DAILY NEEDED FOR CONSTIPATIO N active Not Available Not Available No t Available glipizide ER 10 mg tablet, extended release 24 hr TAKE 2 TABLETS BY MOUTH ONCE DAILY WITH BREAKFAST active Not Available Not Available No t Available FreeStyle Lancets 28 gauge USE 1 DIRECTED TO CHECK BLOOD GLUCOSE TWICE DAILY active Not Available Not Available Not Available lisinopril 20 mg tablet TAKE 1 TABLET BY MOUTH ONCE DAILY active Not Available Not Available No t Available clonazepam 0.5 mg tablet TAKE 3 TABLETS BY MOUTH AT BEDTIME active Not Available Not Available No t Available glipizide ER 5 mg tablet, extended release 24 hr TAKE 1 TABLET BY MOUTH ONCE DAILY WITH BREAKFAST active Not Available Not Available No t Available bacitracin 500 unit/gram topical ointment APPLY TO WATER BLISTER ON FEET TWICE A DAY active Not Available Not Available No t Available amlodipine 2.5 mg tablet TAKE 1 TABLET BY MOUTH ONCE DAILY active Not Available Not Available No t Available Nicotrol 10 mg inhalation cartridge INHALE 1 UNIT SIX TIMES DAILY NEEDED active Not Available Not Available No t Available ketorolac 0.5 % eye drops INSTILL 1 DROP INTO AFFECTED EYE THREE TIMES DAILY DIRECTED . START 2 DAYS PRIOR TO SURGERY. TAPER DIRECTED active Not Available Not Available No t Available docusate sodium 100 mg capsule TAKE 1 CAPSULE BY MOUTH TWICE DAILY NEEDED active Not Available Not Available No t Available acetaminophe n 300 mg-codeine 60 mg tablet TAKE 1 TABLET BY MOUTH EVERY DAY AT BEDTIME active Not Available Not Available No t Available bisacodyl 5 mg tablet,delay ed release TAKE 2 TABLETS BY MOUTH AT BEDTIME active Not Available Not Available No t Available hydrochlorot hiazide 25 mg tablet TAKE 1 TABLET BY MOUTH ONCE DAILY IN THE MORNING active Not Available Not Available Not Available methylpredni solone 4 mg tablets in a dose pack TAKE BY MOUTH DIRECTED ON PACKAGE INSERT active Not Available Not Available No t Available atenolol 50 mg tablet TAKE 1 & 1/2 (ONE & ONE-HALF) TABLETS BY MOUTH ONCE DAILY active Not Available Not Available No t Available mometasone 0.1 % topical cream active Not Available Not Available Not Available Vitamin D3 25 mcg (1,000 unit) capsule TAKE 1 CAPSULE BY MOUTH ONCE DAILY active Not Available Not Available No t Available Restasis 0.05 % eye drops in a dropperette INSTILL 1 DROP INTO EACH EYE TWICE DAILY active Not Available Not Available Not Available 8 Hour Pain Reliever 650 mg tablet,exten ded release TAKE 1 TABLET BY MOUTH EVERY 8 HOURS NEEDED active Not Available Not Available No t Available fluocinolone acetonide oil 0.01 % ear drops INSTILL 4 5 DROPS ONCE DAILY INTO EACH EAR active Not Available Not Available No t Available FreeStyle Lite Meter kit USE DIRECTED TO CHECK BLOOD GLUCOSE TWICE DAILY (E11.9) active Not Available Not Available No t Available FreeStyle Lite Strips USE 1 STRIP TO CHECK GLUCOSE TWICE DAILY active Not Available Not Available Not Available GaviLyte-G 236 gram-22.74 gram-6.74 gram-5.86 gram oral solution MIX DIRECTED AND DRINK 240 ML BY MOUTH EVERY 10 MINUTES FOR 1 DAY UNTIL FECAL EFFLUENT IS CLEAR. active Not Available Not Available No t Available Linzess 145 mcg capsule TAKE 1 CAPSULE BY MOUTH ONCE DAILY IN THE MORNING active Not Available Not Available Not Available Linzess 290 mcg capsule TAKE 1 CAPSULE BY MOUTH ONCE DAILY active Not Available Not Available No t Available Farxiga 5 mg tablet TAKE 1 TABLET BY MOUTH ONCE DAILY active Not Available Not Available No t Available Trulicity 0.75 mg/0.5 mL subcutaneous pen injector INJECT 0.75 MG (0.5 ML) SUBCUTANEOU SLY ONCE A WEEK active Not Available Not Available No t Available Linzess 72 mcg capsule TAKE 1 CAPSULE BY MOUTH ONCE DAILY IN THE MORNING active Not Available Not Available Not Available Trulance 3 mg tablet TAKE 1 TABLET BY MOUTH ONCE DAILY active Not Available Not Available No t Available Ubrelvy 100 mg tablet TAKE 1 TABLET BY MOUTH ONCE. MAY REPEAT DOSE ONCE AFTER 2 HOURS IF NEEDED. NOT TO EXCEED 2 TABLETS IN 24 HOURS active Not Available Not Available No t Available Vitals Date Recorded Oxygen saturation Oxygen saturation in Arterial blood by Pulse oximetry Respiratory rate Body temperature Heart rate Body temperature Heart rate Respiratory rate Oxygen saturation Oxygen saturation in Arterial blood by Pulse oximetry Systolic blood pressure Diastolic blood pressure Systolic blood pressure Diastolic blood pressure Provider Name and Address Organization Details Last Updated DateTime 2 98 % 98 % 20 /min 97.5 [degF] 80 /min 97.5 [degF] 80 /min 20 /min 98 % 98 % 150 mm[Hg] 80 mm[Hg] 150 mm[Hg] 80 mm[Hg] Not Available [employer] - production 2 11:44:20 Social History None recorded. Functional Status None recorded. Mental Status None recorded. Family History Nothing Reported. Medical History No medical history recorded. Gynecological HistoryNo gynecological history recorded. Obstetrics History GPAL:G 0 P 0 0 0 0 Past Encounters Encounter ID Performer Location Encounter Start Date Encounter Closed Date Diagnosis/Indication Diagnosis SNOMED-CT Code Diagnosis ICD10 Code Diagnosis Note [id number] MD [facility] - [facility] [address] [place] [address] 03/04/2022 11:17:35 06/25/2022 15:48:58 Acute low back pain 817461511 M54.50 Pt p/w gradual worsening of LBP attributed to buldging disc, symptoms c/w sciatica and denies neurologic deficits. No red flag symptoms reported. Pt instructed by PCP never to take NSAIDs as she is on Farxiga. As such, recommend conservati ve mgmt w/ acetaminoh pen, trial topical Salonpas patches, discuss w/ PCP a PT referral and if normal Cr at baseline limited trial NSAIDs. Red flag symptoms reviewed, pt instructed to call 911 if condition worsens or new symptoms develop, pt expressed understand ing. I have reviewed and agree with the assessment and plan as documented by the fans clerk. I provided real time medical direction for this encounter and was immediatel y available to provide additional phone based assistance as needed. Health Concerns Section Related Observation LastModified by Organization Detai ls LastModified Time None Recorded Concern Status LastModified by Organization Details LastModified Time None Recorded Advance Directives Directive None Recorded Payers Encounter Date Sequence Insurance Name Policy Number Policy [employer] Covered Member ID [employer] Member ID Guarantor Name 03/04/2022 1 [facility] - DOS PRIOR TO 2023 - DUAL ELIGIBLE (MEDICARE REPLACEMENT/ADV ANTAGE - HMO) Stephanie Luz [id number] Stephanie Luz Notes Date Note Type Note Provider Name and Address Organization Details Recorded Time 03/04/2022 text/html HPI: Ax: Amoxicillin, clonidine, potassium claluvanate Patient having lower back pain since Thursday 03/01. Radiating to right leg. No urinary sx. taking Tylenol with mild relief. No numbness or known injury to area. .................. .................. .................. .................. .................. .................. .................. ............... Recreation Aide Note: Chief Complaint back pain Pertinent positive and negative Review of Systems (ROS) findings Constitutional: Afebrile without fatigue/malaise/ lethargy. Denies Chills HEENT: Denies visual changes Resp: no cough, no Wheeze, Hemoptysis, SOB or PEREIRA Cardio: Denies Chest pain or palpitations GI: Denies N/V/D or current loss of appetite Genitourinary: Appropriate frequency without pain or odor Musculoskeletal: Pt denies pain or swelling Neuro: Alert to baseline Psych: Denies anxiety or depression Skin: Denies rashes or wounds Endocrine: No new unexpected weight loss/gain Focused Physical Assessment Findings chronic lower back pain due to bulging disk radiating down right leg. General: Well developed and well nourished in no acute distress HEENT: Unremarkable Neck: Unremarkable Lungs: Clear to auscultation without egophony Heart: Regular rate and rhythm Abdomen: Soft, Non-distended and non-tender Extremities: No Cyanosis, rash, lesions or edema Neuro: At baseline Psych: Good Affect/Mood/ Attention Skin Intact without rash Pt unable to take nsaids due to kidney issues. Pt will follow up with pcp Red flags covered, Pt has no further questions or concerns. .................. .................. .................. .................. .................. .................. .................. ............... Disposition: Fulfilled Ct Redd MD [address] [facility],[address], [place], [address], [facility] 03/04/2022 12:32:02 OBGyn Episode No OBEpisode recorded.
== END 2024-11-16 09:12 | disposition home or self-care (01) ==
LOC: HO.XRAY 09:11
PROVIDERS: PCP General Practice; Visit Provider Nurse Practitioner
DX: R13.10 Dysphagia, unspecified (principal)
CPT/HCPCS: 74220

== ENCOUNTER → 2024-11-16 09:13 | Outpatient (BNV) | payer OTHER, SELFPAY | PROVIDERS: PCP General Practice; Visit Provider Radiology Diagnostic Radiology | DX: R13.10 Dysphagia, unspecified (principal) | CPT/HCPCS: 74246 ==

== ENCOUNTER 2024-12-29 11:36 | Outpatient (REF) | payer OTHER, SELFPAY ==
--- NOTE | ~2024-12-29 | XR_ITS ---
EXAMINATION: XR CERVICAL SPINE CLINICAL INFORMATION: 6 weeks of nexk pain and spasm COMPARISON: May 25, 2024. TECHNIQUE: 6 views of the cervical spine, inclusive of flexion and extension views, were obtained. FINDINGS: Metallic plate in the anterior aspect of C5-6 resulting in ankylosis. No loosening in the anchor screws. Marginal osteophyte formation C4-5 and C6-7. Probable 1 mm anterolisthesis C6-7. Right neuroforamina and stenosis secondary to marginal osteophyte formation at C4-5. Mild neuroforamina stenosis at left C4-5 on a degenerative. No acute cortical disruption. Craniocervical junction is intact. No lytic or blastic lesions. Upper airways patent. XR/XR cervical spine 4V IMPRESSION: Status post anterior cervical fusion C5-6 and spondylosis C4-5 and C6-7. No gross change. Severe right neuroforamina and stenosis at C4-5 on a degenerative basis.. Electronically signed by: Tani Marie MD 12/29/2024 12:31 PM EDT
--- OUTSIDE RECORDS SUMMARY | 2024-12-29 13:44 | XMS_ITS | Encounter Summary ---
Author Organization [employer] [facility] Address [address] [facility] [address] [place] [address] Care Team Providers Care Offset Machine Operator Name Role Phone Sima Kaur MD Primary Care Provider [phone] Encounter Details Date Type Department Care Team (Late st Contact Info) Description 01/10/2023 Abstract [facility] MEDICINE [address] [place] [address] [phone] Sima Kaur MD [address] [place] [address] [phone] Social History Tobacco Use Types Packs/Day Years [...] Care Team (Late st Contact Info) Description 01/19/2025 3:15 PM EDT Office Visit [facility] MED[facility]INE [address] [place] [address] [phone] Sima Kaur MD [address] [place] [address] [phone] documented as of this encounter Procedures Procedure Name Priority Date/Time Associated Diagnosis Comments HM MAMMOGRAPHY Routine 05/15/2022 PAP SMEAR Routine 07/11/2020 12:00 AM EDT documented in this encounter Results * Mammography (05/15/2022) Mammogram completed mammo Anatomical Region Laterality Modality Other Historical Provider HEALTH MAINTENANCE Final Result * Pap Smear (07/11/2020 12:00 AM EDT) Swab Historical Provider LAB CYTOLOGY ORDERABLES F inal Result Performing Organization Address City/State/[facility] Co de Phone Number [facility] [address], [place] [address] documented in this encounter Visit Diagnoses Not on filedocumented in this encounter Care Teams Offset Machine Operator Relationship Specialty Start Date End Date Sima Kaur MD [address] [place] [phone] PCP - General Family Medicine 11/28/20 documented as of this encounter
--- OUTSIDE RECORDS SUMMARY | 2024-12-29 13:44 | XMS_ITS | Clinical Summary ---
Author Organization [facility] Facility Address [address] [place] [address], [place] [address] Care Team Providers Care Trimming Machine Operator Name Role Phone Sima Kaur MD Primary Care Provider [phone] Allergies Active Allergy Reactions Criticality Noted Date Comments Amoxicillin 04/27/2021 Other reaction(s): GI Problems Clavulanic Acid 04/27/2021 Clonidine Other (see comments) 05/24/2021 Medications cholecalciferol (VITAMIN D-3) 25 MCG (1000 UT) capsule Take 1 capsule by mouth 1 (one) time each day Active glipiZIDE (GLUCOTROL XL) 5 MG 24 hr tablet Take 20 mg by mouth 1 (one) time each day with breakfast 1 Active hydroCHLOROthiaz michelle 25 MG tablet Take 25 mg by mouth every morning 1 Active atenolol (TENORMIN) 50 MG tablet Take 75 mg by mouth 1 (one) time each day 1 Active simvastatin (ZOCOR) 20 MG tablet Take 20 mg by mouth 1 (one) time each day in the evening 1 Active cyclobenzaprine (FLEXERIL) 10 MG tablet Take 1 tablet by mouth 3 (three) times a day Active clonazePAM (KlonoPIN) 0.5 MG tablet Take by mouth at bed time Active atorvastatin (LIPITOR) 40 MG tablet 1 Active senna (SENOKOT) 8.6 MG tablet 1 Active Trulicity 0.75 MG/0.5ML solution pen-injector 1 Active amLODIPine (NORVASC) 2.5 MG tablet Take 1 tablet by mouth once daily 90 tablet 3 2 Active Additional Information Patient not taking.Reported on 06/24/2024 Dapagliflozin Propanediol 5 MG tablet Take 5 mg by mouth 1 (one) time each day 90 tablet 5 4 Active lisinopril 20 MG tablet Take 1 tablet by mouth once daily 90 tablet 5 Active Active Problems Problem Noted Date Diagnosed Date [...] 10/23/2024 Refill [facility] [address] [place], [place] [address] Fazal Ohara MD from Last 3 Months [...] Date Smoking Tobacco: Every Day Cigarettes 0.5 42.2 Started: 10/20/1982 Smokeless Tobacco: Never Alcohol Use [...] Visit [facility] [address] [place] [address] Fazal Ohara MD [address] [facility] [address] [place] [address] Health Maintenance Due Date Last Done Comments Breast Cancer Screening 1955 Colorectal Cancer Screening: Annual FOBT 2006 Colorectal Cancer Screening: Colonoscopy 2006 Colorectal Cancer Screening: Sigmoidoscopy 2006 Diabetes: Ophthalmology Exam 11/19/2020 Diabetes: Pedal Pulse Checked 11/19/2020 Diabetes: Sensory Foot Exam 11/19/2020 Diabetes: Visual Foot Exam 11/19/2020 Influenza Vaccine (#1) 2024 2, 08/03/2021, 07/11/2020, Additional history exists Diabetes: Hemoglobin [...] % PVNMA 07/12/2020 us Rtama Conversion LAB [id number] LICITED RESULTS Final Result PVNMA from Last 3 Months or Most Recently Relevant to Health Maintenance Insurance [facility] ([id number]) [facility] [facility] ([id number]) Care Teams Trimming Machine Operator Relationship Specialty Start Date End Date Sima Kaur MD [facility] [place] [address] PCP - General Cooler Supervisor 05/24/21
--- OUTSIDE RECORDS SUMMARY | 2024-12-29 13:44 | XMS_ITS | Encounter Summary ---
Author Organization [employer] [facility] Address [address] [facility] 7t [place] [address] Care Team Providers Care Drying Tunnel Operator Name Role Phone Sima Kaur MD Primary Care Provider [phone] Reason for Referral * Consultation (Routine) - Authorized Specialty Diagnoses / Procedures Referred By Jose sweet Referred To Contact Orthopaedic Surgery Diagnoses Neck pain Reina Hernandez MD [address] [place] [address] Phone: tel: fax: [facility] [address] [place] [address] Phone: tel: Referral ID Status Reason Start Date Expiration Date Visits Requested Visits Authorized [id number] Authorized Specialty Services Required 12/28/2024 12/28/2025 1 1 Reason for Visit * Reason Comments Neck Pain Encounter Details Date Type Department Care Team (Late st Contact Info) Description 12/28/2024 5:20 PM EDT Office Visit [facility] [address] [place] [address] [phone] Reina Hernandez MD [address] [place] [address] [phone] Neck pain (Primary Dx); Dermatitis Social History Tobacco Use Types Packs/Day Years [...] AM EDT documented as of this encounter Last Filed Vital Signs Vital Sign Reading Time Taken Comments Blood Pressure 135/76 12/28/2024 5:01 PM EDT Pulse 63 12/28/2024 5:01 PM EDT Temperature 35.6 ??C (96.1 ??F) 12/28/2024 5:01 PM ED T Respiratory Rate 20 12/28/2024 5:01 PM EDT Oxygen Saturation 98% 12/28/2024 5:01 PM EDT Inhaled Oxygen Concentration - - Weight 70 kg (154 lb 6 oz) 12/28/2024 5:01 PM ED T Height 154.9 cm (5' 1 ) 12/28/2024 5:01 PM EDT Body Mass Index 29.17 12/28/2024 5:01 PM EDT documented in this encounter Progress Notes * Rolando Farrell - 12/28/2024 5:20 PM EDT Images from the original note were not included. Subjective Patient ID: Stephanie Luz is a 69 y.o. female with past medical history of migraines, neck pain, hypertension, CKD stage 2, type 2 diabetes, chronic back pain, depression, and tobacco dependence who presents to walk in clinic for neck pain. Stephanie reports 6 weeks of increasing neck pain, localized to right but radiates to entire neck.Pain is causing difficulty sleeping. Reports pain is a ten and beyond . Pt reports had a cervical fusion in 2004 with resolution of symptoms. Denies fever. Review of Systems Objective Visit Vitals BP 135/76 (BP Location: Left arm, Patient Position: Sitting, BP Cuff Size: Adult) Pulse 63 Temp 96.1 ??F (35.6 ??C) (Temporal) Resp 20 Body mass index is 29.17 kg/m??. Physical Exam Neck: Comments: Tenderness upper trapezius. Decreased ROM in all planes. No nuchal rigidity Patch of dry, scaly red skin posterior neck Musculoskeletal: Cervical back: No signs of trauma, rigidity, torticollis or crepitus. Pain with movement present. Decreased range of motion. Problem List Items Addressed This Visit Neck pain - Primary 6 weeks of severe neck pain with decreased ROM. No fevers or evidence of infection. Hx cervial fusion 2004 -xrays ordered -referral to ortho -trial of cyclobenzaprine Relevant Medications cyclobenzaprine (Flexeril) 10 MG tablet Other Relevant Orders XR CERVICAL SPINE 4V Referral to Orthopaedic Surgery Addendum x ray shows XR/XR cervical spine 4V IMPRESSION: Status post anterior cervical fusion C5-6 and spondylosis C4-5 and C6-7. No gross change. Severe right neuroforamina and stenosis at C4-5 on a degenerative basis.. documented in this encounter Miscellaneous Notes * Assessment & Plan Note - Reina Hernandez MD - 12/28/2024 5:33 PM EDT Associated Problem(s): Neck pain 6 weeks of severe neck pain with decreased ROM. No fevers or evidence of infection. Hx cervial fusion 2005 -xrays ordered -referral to ortho -trial of cyclobenzaprine documented in this encounter Plan of Treatment Upcoming Encounters Date Type Department Care Team (Late st Contact Info) Description 01/19/2025 3:15 PM EDT Office Visit [facility] [address] [place] [address] Sima Kaur MD [address] [place] [address] Scheduled Referrals Name Type Priority Associated Diagnoses Order Schedule Referral to Orthopaedic Surgery Outpatient Referral Routine Neck pain Expected: 12/28/2024 (Approximate), Expires: 12/28/2025 documented as of this encounter Procedures Procedure Name Priority Date/Time Associated Diagnosis Comments XR CERVICAL SPINE 4V Routine 12/29/2024 11:37 AM EDT Neck pain documented in this encounter Results * XR CERVICAL SPINE 4V (12/29/2024 11:37 AM EDT) Anatomical Region Laterality Modality Abdomen Radiographic Bettye ging 12/29/2024 11:3 7 AM EDT Narrative 12/29/2024 12:34 PM EDT ?[facility] ?[address] [facility]. ?[place] [address] ?XRay Report ? Signed ? Patient: Sukh,Stephanie ?MR#: [id number] ?? [id number] ? : 1955 ?Acct:[id number] ? Age/Sex: 69 / F ?ADM Date: 03/12/25 ? Loc: HO.HHCX ? Attending Dr: Reina Hernandez MD ? Ordering Physician: Reina Hernandez MD ?? Date of Service: 12/29/24 ?? Procedure(s): XR cervical spine 4V ?? Accession Number(s): [id number] ? cc: Reina Hernandez MD ? EXAMINATION: ?? XR CERVICAL SPINE ? CLINICAL INFORMATION: ?? 6 weeks of nexk pain and spasm ? COMPARISON: ?? May 25, 2024. ? TECHNIQUE: ?? 6 views of the cervical spine, inclusive of flexion and extension ?? views, were obtained. ? FINDINGS: ?? Metallic plate in the anterior aspect of C5-6 resulting in ankylosis. ?? No loosening in the anchor screws. ?? Marginal osteophyte formation C4-5 and C6-7. ?? Probable 1 mm anterolisthesis C6-7. ?? Right neuroforamina and stenosis secondary to marginal osteophyte ?? formation at C4-5. ?? Mild neuroforamina stenosis at left C4-5 on a degenerative. ?? No acute cortical disruption. ?? Craniocervical junction is intact. ?? No lytic or blastic lesions. ?? Upper airways patent. ? XR/XR cervical spine 4V ?? IMPRESSION: ?? Status post anterior cervical fusion C5-6 and spondylosis C4-5 and ?? C6-7. No gross change. ?? Severe right neuroforamina and stenosis at C4-5 on a degenerative ?? basis.. ? Electronically signed by: ??Tani Marie MD ??12/29/2024 12:31 PM ?? EDT ? Dictated By: ?Tani Quezada MD ? Signed By: ?<Electronically signed by Tani Sy MD in OV> ? 12/29/24 1231 ? DD/ 1137 ? TD/TT: 12/29/24 1200 ? Industrial Cook: ? Procedure Note Juan, Image - 12/29/2024 [facility] [address] [place] [address] XRay Report Signed Patient: Guillermo Luz#: [id number] : 7Acct:[id number] Age/Sex: 69 / FADM Date: 12/29/24 Loc: HO.HHCX Attending Dr: Reina Hernandez MD Ordering Physician: Reina Hernandez MD Date of Service: 12/29/24 Procedure(s): XR cervical spine 4V Accession Number(s): [id number] cc: Reina Hernandez MD EXAMINATION: XR CERVICAL SPINE CLINICAL INFORMATION: 6 weeks of nexk pain and spasm COMPARISON: May 25, 2024. TECHNIQUE: 6 views of the cervical spine, inclusive of flexion and extension views, were obtained. FINDINGS: Metallic plate in the anterior aspect of C5-6 resulting in ankylosis. No loosening in the anchor screws. Marginal osteophyte formation C4-5 and C6-7. Probable 1 mm anterolisthesis C6-7. Right neuroforamina and stenosis secondary to marginal osteophyte formation at C4-5. Mild neuroforamina stenosis at left C4-5 on a degenerative. No acute cortical disruption. Craniocervical junction is intact. No lytic or blastic lesions. Upper airways patent. XR/XR cervical spine 4V IMPRESSION: Status post anterior cervical fusion C5-6 and spondylosis C4-5 and C6-7. No gross change. Severe right neuroforamina and stenosis at C4-5 on a degenerative basis.. Electronically signed by: Tani Marie MD 12/29/2024 12:31 PM EDT RP Dictated By: Tani Quezada MD Signed By: <Electronically signed by Tani Sy MDin OV> 12/29/24 1231 DD/ 1137 TD/TT: 12/29/24 1200 Industrial Cook: Reina Hernandez MD IMG XR PROCEDURES Final Re sult documented in this encounter Visit Diagnoses Diagnosis Neck pain- Primary Cervicalgia Dermatitis Contact dermatitis and other eczema, due to unspecified cause documented in this encounter Additional Health Concerns Assessment Noted Time PHQ-9 Depression Total Score: 10 024 11:02 AM EDT documented as of this encounter Care Teams Drying Tunnel Operator Relationship Specialty Start Date End Date Sima Kaur MD [address] [place] [address] PCP - General Family Medicine 11/28/20 documented as of this encounter
--- OUTSIDE RECORDS SUMMARY | 2024-12-29 13:45 | XMS_ITS | Encounter Summary ---
Author Organization [employer] Address [address] [facility] [address] 7[address] [place] [address] Care Team Providers Care Grain Picker Name Role Phone Sima Kaur MD Primary Care Provider [phone] Reason for Visit * Reason Comments Med Refill Encounter Details Date Type Department Care Team (Late st Contact Info) Description 12/14/2024 Refill [facility] [address] [place], [place] [phone] Sima Kaur MD [address] [place], [place] [phone] Type 2 diabetes mellitus without complication, without long-term current use of insulin ([facility]) Social History Tobacco Use Types Packs/Day Years [...] Description 01/19/2025 3:15 PM EDT Office Visit [facility] [address] [place] [address] Sima Kaur MD [address] [place] [address] documented as of this encounter Visit Diagnoses Diagnosis Type 2 diabetes mellitus without complication, without long-term current use of insulin ([facility]) documented in this encounter Additional Health Concerns Assessment Noted Time PHQ-9 Depression Total Score: 10 024 11:02 AM EDT documented as of this encounter Care Teams Grain Picker Relationship Specialty Start Date End Date Sima Kaur MD [address] [place] [address] PCP - General Family Medicine 11/28/20 documented as of this encounter
--- OUTSIDE RECORDS SUMMARY | 2024-12-29 13:45 | XMS_ITS | Encounter Summary ---
Author Organization [facility] Address [address] [facility] [address] [place] [address] Phone Care Team Providers Care Day Treatment Clinician/Art Therapist Name Role Phone Sima Kaur MD Primary Care Provider [phone] Reason for Visit * Reason Comments Med Refill Encounter Details Date Type Department Care Team (Late Contact Info) Description 05/12/2023 Refill [facility] [address] [place] [address] [...] Upcoming Encounters Date Type Department Care Team ([facility] Contact Info) Description 07/04/2025 1:00 PM EDT Office Visit [facility] [address] [place] [address] Fazal Ohara MD [address] [facility] 204 [place] [address] documented as of this encounter Visit Diagnoses Not on filedocumented in this encounter Care Teams Day Treatment Clinician/Art Therapist Relationship Specialty Start Date End Date Sima Kaur MD [address] [place], [place] [phone] PCP - General Business Services Vice President 05/24/21 documented as of this encounter
--- OUTSIDE RECORDS SUMMARY | 2024-12-29 13:45 | XMS_ITS | Encounter Summary ---
Author Organization [facility] Address [address] [facility] [address] [address] [place] [address] Phone Care Team Providers Care Cutter Operator Helper Name Role Phone Sima Kaur MD Primary Care Provider [phone] Reason for Visit * Reason Comments Med Refill Encounter Details Date Type Department Care Team (Late Contact Info) Description 06/03/2022 Refill [facility] [address] [place] [phone] Chester Alves MD [address] [address] Social History Tobacco Use Types [...] Visit [facility] [address] [place] [phone] Fazal Ohara MD [address] [address] documented as of this encounter Visit Diagnoses Not on filedocumented in this encounter Care Teams Cutter Operator Helper Relationship Specialty Start Date End Date Sima Kaur MD [address] [place] [address] PCP - General Enterer 05/24/21 documented as of this encounter
--- OUTSIDE RECORDS SUMMARY | 2024-12-29 13:45 | XMS_ITS | Data Portability ---
Author Organization [employer] [facility] Address [address] [place] [address] Care Team Providers Care Cattle Manager Name Role Phone HIM [facility] OTHER [facility] Primary Care Provider [phone] Assessment No assessment recorded. Plan of Treatment [...] Referral None Reported. Medical Equipment None Reported. Allergies Allergen ID Allergen Name Allergen Category Reaction Reaction Severity Criticality Documentation Date Start Date Code Code System Note Provider Name and Address Organization Details Recorded Time 99392 codeine medicatio n Not available Not available Not available 12/27/2024 2670 RxNorm Not Available VR1 - production 5 15:30:47 Medications Name Sig Start Date Stop Date [...] mm[Hg] 150 mm[Hg] 80 mm[Hg] Not Available VR1 - Ambarella 2 11:44:20 Social History None recorded. Functional [...] Note [address] Red[address] MD Main - [address] [address] 03/04/2022 11:17:35 06/25/2022 15:48:58 Acute low back pain [id number] M54.50 Pt p/w gradual worsening of LBP [...] assessment and plan as documented by the psychiatric np. I provided real time medical direction for [...] Quinteros Member ID Guarantor Name 03/04/2022 1 [facility] - DOS PRIOR TO 2023 - DUAL ELIGIBLE (MEDICARE REPLACEMENT/ADV ANTAGE - HMO) Stephanie Luz [id number] Stephanie Luz Notes Date Note Type Note Provider Name and Address Organization Details Recorded Time 03/04/2022 text/html HPI: Ax: Amoxicillin, clonidine, potassium claluvanate Patient having lower back pain since Thursday 03/01. Radiating to right leg. No urinary sx. taking Tylenol with mild relief. No numbness or known injury to area. .................. .................. .................. .................. .................. .................. .................. ............... Retail Wireless Sales Representative Note: Chief Complaint back pain Pertinent positive [...] ............... Disposition: Fulfilled Ct Redd MD [address] [facility],[address], [place], [address], [employer] 03/04/2022 12:32:02 OBGyn Episode No OBEpisode recorded.
--- OUTSIDE RECORDS SUMMARY | 2024-12-29 13:45 | XMS_ITS | Encounter Summary ---
Author Organization [facility] Address [address] [facility] 200 [place] [address] Phone Care Team Providers Care Visual And Stock Associate Name Role Phone Sima Kaur MD Primary Care Provider [phone] Reason for Visit * Reason Comments Med Refill Encounter Details Date Type Department Care Team (Late Contact Info) Description 06/11/2023 Refill [facility] [address] [place] [address] [...] Upcoming Encounters Date Type Department Care Team ([facility] Contact Info) Description 07/04/2025 1:00 PM EDT Office Visit [facility] [address] [place] [address] Fazal Ohara MD [address] [facility] 204 [place] [address] documented as of this encounter Visit Diagnoses Not on filedocumented in this encounter Care Teams Visual And Stock Associate Relationship Specialty Start Date End Date Sima Kaur MD [address] [place], [place] [phone] PCP - General Construction Engineering Manager 05/24/21 documented as of this encounter
--- OUTSIDE RECORDS SUMMARY | 2024-12-29 13:45 | XMS_ITS | Encounter Summary ---
Author Organization [facility] Address [address] [facility] 200 [place] [address] Phone Care Team Providers Care Electronics Technology Department Chair Name Role Phone Sima Kaur MD Primary Care Provider [phone] Reason for Visit * Reason Comments Med Refill Encounter Details Date Type Department Care Team (Late Contact Info) Description 07/03/2022 Refill [facility] [address] [place] [...] Upcoming Encounters Date Type Department Care Team ([facility] Contact Info) Description 07/04/2025 1:00 PM EDT Office Visit [facility] [address] [place] [address] Fazal Ohara MD [address] [facility] [address] [place] [address] documented as of this encounter Visit Diagnoses Not on filedocumented in this encounter Care Teams Electronics Technology Department Chair Relationship Specialty Start Date End Date Sima Kaur MD [address] [place], [place] [phone] PCP - General Linen Grader 05/24/21 documented as of this encounter
--- OUTSIDE RECORDS SUMMARY | 2024-12-29 13:45 | XMS_ITS | Encounter Summary ---
Author Organization [employer] Address [address] [facility] [address] [place] [address] Care Team Providers Care Rug Dry Room Attendant Name Role Phone Sima Kaur MD Primary Care Provider [phone] Reason for Visit * Reason Comments Med Refill Encounter Details Date Type Department Care Team (Late st Contact Info) Description 12/22/2024 Refill [facility] [address] [place], [place] [phone] [facility] 230 [place], [place] [phone] Essential hypertension Social History Tobacco Use Types Packs/Day Years [...] Description 01/19/2025 3:15 PM EDT Office Visit [facility] [address] [place] [address] Sima Kaur MD [address] [place] [address] documented as of this encounter Visit Diagnoses Diagnosis Essential hypertension Unspecified essential hypertension documented in this encounter Additional Health Concerns Assessment Noted Time PHQ-9 Depression Total Score: 10 024 11:02 AM EDT documented as of this encounter Care Teams Rug Dry Room Attendant Relationship Specialty Start Date End Date Sima Kaur MD [address] [place] [address] PCP - General Family Medicine 11/28/20 documented as of this encounter
--- OUTSIDE RECORDS SUMMARY | 2024-12-29 13:46 | XMS_ITS | Encounter Summary ---
Author Organization [employer] [facility] Address [address] [facility] 7t [place] [address] Care Team Providers Care Car Cleaning Supervisor Name Role Phone Sima Kaur MD Primary Care Provider [phone] Reason for Referral * Consultation (Routine) - Closed Specialty Diagnoses / Procedures Referred By Contradha t Referred To Contact Neurosurgery Diagnoses Cervical spine pain Cervical radiculopathy due to degenerative joint disease of spine Sima Kaur MD [address] [place] [address] Phone: tel: fax: Sheridan Valentine MD [address] [place] [address], [address] [place] [address] Phone: tel: fax: Referral ID Status Reason Start Date Expiration Date V isits Requested Visits Authorized [id number] Closed Specialty Services Required 05/28/2024 05/28/2025 1 0 Encounter Details Date Type Department Care Team (Late st Contact Info) Description 05/28/2024 Orders Only [facility] 230 [place], [place] [phone] Sima Kaur MD [address] [place], [place] [phone] Cervical spine pain (Primary Dx); Cervical radiculopathy [...] Description 01/19/2025 3:15 PM EDT Office Visit [facility] 230 [place] [address] Sima Kaur MD [address] [place] [address] Scheduled Referrals Name Type Priority Associated Diagnoses [...] as of this encounter Care Teams Car Cleaning Supervisor Relationship Specialty Start Date End Date Sima Kaur MD [address] [place] [address] PCP - General Family Medicine 11/28/20 documented as of this encounter
--- OUTSIDE RECORDS SUMMARY | 2024-12-29 13:46 | XMS_ITS | Clinical Summary ---
Author Organization [employer] Address [address] [facility] [address] [place] [address] Care Team Providers Care Auditor Supervisor Name Role Phone Sima Kaur MD Primary Care Provider [phone] Allergies Active Allergy Reactions Criticality Noted Date [...] HEADACHE FOR 7 DAYS Active HYDROcodone-yvette taminophen (Wynne) 5-325 MG tablet TAKE 1 TABLET BY [...] BLOOD SUGAR TWICE DAILY 100 each 11 024 Active glipiZIDE XL (Glucotrol XL) 10 MG 24 hr tablet TAKE 2 TABLETS BY MOUTH ONCE DAILY WITH BREAKFAST 180 tablet 3 024 Active atenolol (Tenormin) 50 MG tabletIndicatio ns:Primary hypertension TAKE 1 & 1/2 (ONE & ONE-HALF) TABLETS BY MOUTH ONCE DAILY 135 tablet 3 024 Active chlorhexidine (Peridex) 0.12 % solution SWISH [...] at the same time. 30 patch 11 024 Active Trulicity 1.5 MG/0.5ML solution auto-injectorIn dications:Type 2 diabetes mellitus without complication, without long-term current use of insulin ([facility]) INJECT 1.5 MG (0.5 ML) SUBCUTANEOUSLY ONCE A WEEK Active predniSONE (Deltasone) 20 MG tablet Take 40 mg by mouth Once per day. Active melatonin 5 MG tabletIndicatio ns:Primary insomnia Take 2 tablets (10 mg) by mouth at bedtime. 180 tablet 3 Active Dulaglutide (Trulicity) 3 MG/0.5ML solution auto-injectorIn dications:Type 2 diabetes mellitus without complication, without long-term current use of insulin ([facility]) Inject 3 mg under the skin 1 (one) time per week. 2 mL 6 Active Alcohol Swabs (B-D SINGLE USE SWABS REGULAR) padsIndications :Type 2 diabetes mellitus without complication, without long-term current use of insulin ([facility]) USE 1 SWAB EXTERNALLY TWICE DAILY 100 each 11 025 Active FREESTYLE LITE test stripIndication s:Type 2 diabetes mellitus without complication, without long-term current use of insulin ([facility]) USE 1 STRIP TO CHECK GLUCOSE TWICE DAILY DIRECTED 150 each 3 025 Active hydroCHLOROthia zide (HYDRODiuril) 25 MG tabletIndicatio ns:Essential hypertension TAKE 1 TABLET BY MOUTH IN THE MORNING 90 tablet 3 025 Active cyclobenzaprine (Flexeril) 10 MG tabletIndicatio ns:Neck pain One tab po at bedtime prn pain of muscles, do not drive with medicaion 10 tablet 025 Active clobetasol (Temovate) 0.05 % ointmentIndicat ions:Dermatitis Apply topically 2 times daily. 15 g 1 025 Active FREESTYLE LITE test stripIndication s:Type 2 diabetes mellitus without complication, without long-term current use of insulin ([facility]) USE 1 STRIP TO CHECK GLUCOSE TWICE DAILY DIRECTED 150 each 3 024 2024 Discontinued hydroCHLOROthia zide (HYDRODiuril) 25 MG tabletIndicatio ns:Essential hypertension TAKE 1 TABLET BY MOUTH IN THE MORNING 90 tablet 024 2024 Discontinued Active Problems Problem Noted Date Diagnosed Date Primary insomnia 08/18/2024 Type 2 diabetes mellitus wit hout complication, without long-term current use of insulin 08/18/2024 Neck pain 05/26/2024 Assessment & Plan (12/28/2024 5:33 PM EDT): 6 weeks of severe neck pain with decreased ROM. No fevers or evidence of infection. Hx cervial fusion 2005 -xrays ordered -referral to ortho -trial of cyclobenzaprine Skin lesion 03/08/2024 Assessment & Plan (03/08/2024 [...] with Emgality [place] [facility] [place] Encouraged wear of CPAP for help with SANTIAGO and BP Assessment & Plan (10/15/2022 11:53 AM EST): Much improved with Emgality Continue [place] [facility] [place] Encouraged wear of CPAP for help with SANTIAGO and BP 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 05/24/2021 Assessment & Plan (06/12/2023 8:48 PM EDT): cont rn mobile followup Assessment & Plan (05/09/2023 10:10 AM EDT): Pt has a follow up with rn mobile next month Nicotine dependence 05/24/2021 Assessment & [...] of Trulicity secondary to medication availability -called [facility] pharmacy and confirmed Trulicity 1.5 mg is [...] Encounters Date Type Department Care Team Description 12/28/2024 5:20 PM EDT Office Visit [facility] WALK-IN CENTER [address] [place] [address] Reina Hernandez MD Neck pain (Primary Dx); Dermatitis 12/22/2024 Refill [facility] [address] [place] [address] Selena Pham FNP Essential hypertension 12/14/2024 Refill [facility] MEDICINE [address] [place] [address] Sima Kaur MD Type 2 diabetes mellitus without complication, without long-term current use of insulin ([facility]) 11/25/2024 Telephone [facility] MEDICINE [address] [place], [place] [phone] Andra Drake MA recall 11/16/2024 Orders Only [facility] External Provider, [facility] 11/06/2024 Refill [facility] MEDICINE [address] [place], [place] [phone] Sima Kaur MD Type 2 diabetes mellitus without complication, without long-term current use of insulin ([facility]) from Last 3 Months Immunizations Name Administration [...] Mass Index 29.17 12/28/2024 5:01 PM EDT Plan of Treatment Upcoming Encounters Date Type Department Care Team (Late st Contact Info) Description 01/19/2025 3:15 PM EDT Office Visit [facility] MEDICINE [address] [place] [address] Sima Kaur MD [address] [place] [address] Health Maintenance Due Date Last Done Comments CT Colonography 1955 FIT DNA/Cologuard 1955 FIT 1955 FOBT 1955 Sigmoidoscopy 1955 Eye Exam 1967 DTaP/Tdap/Td Vaccines (2 - Td or Tdap) 11/18/2022 11/18/2012, 10/18/2008, 10/06/1996 Colonoscopy 01/10/2023 Influenza Vaccine (#1) 2024 3, 07/19/2022, 07/19/2022, Additional history exists Diabetes: Hemoglobin [...] 02/2023, 03/24/2023, Additional history exists Tobacco Screening 12/28/2025 12/28/2024 Colorectal Cancer Screening 01/17/2028 Postponed from 1957 (Other Medical Reasons) Pap Smear 2028 2023, 06/21, 07/11/2020 Hepatitis B Vaccines Completed 08/18/2018, 02/13/2018, 04/04/2016 Zoster Vaccines Completed 10/31/2021, 110 02/2021, 08/06/2017 Pneumococcal Vaccine: 50+ Years Completed 05/09/2023, 10/28/2017 HPV/Cotest Discontinued 2023, [...] Routine 12/29/2024 11:37 AM EDT Neck pain FL ESOPHAGUS BARIUM SWALLOW Routine 11/16/2024 9:13 AM EST POCT GLYCATED HEMOGLOBIN, TOTAL Routine 08/16/2024 [...] Recently Relevant to Health Maintenance Results * XR CERVICAL SPINE 4V (12/29/2024 11:37 AM EDT) Anatomical Region Laterality Modality Abdomen Radiographic Bettye ging 12/29/2024 11:3 7 AM EDT Narrative 12/29/2024 12:34 PM EDT ?[facility] [facility] ?[address] ?[place] [address] ?XRay Report ? Signed ? Patient: Sukh,Stephanie ?MR#: MM ?? [id number] ? : 1955 ?Acct:[id number] ? Age/Sex: 69 / F ?ADM Date: 12/29/24 ? Loc: HO.HHCX ? Attending Dr: Reina Hernandez MD ? Ordering Physician: Reina Hernandez MD ?? Date of Service: 12/29/24 ?? Procedure(s): XR cervical spine 4V ?? Accession Number(s): [id number] ? cc: Reina Hernandez MD ? EXAMINATION: [...] Marie MD ??12/29/2024 12:31 PM ?? EDT RP ? Dictated By: ?Tani Quezada MD ? Signed By: ?<Electronically signed by Tani Sy MD in OV> ? 12/29/24 1231 ? DD/ 1137 ? TD/TT: 12/29/24 1200 ? Bread Packer: ? Procedure Note Nimco Martinez - 12/29/[address] [place] [address] XRay Report Signed Patient: Stephanie LuzMR#: MM [id number] : 1955cct:[id number] Age/Sex: 69 / FADM Date: 12/29/24 Loc: HO.HHCX Attending Dr: Reina Hernandez MD Ordering Physician: Reina Hernandez MD Date of Service: 12/29/24 Procedure(s): XR cervical spine 4V Accession Number(s): [id number] cc: Reina Hernandez MD EXAMINATION: XR CERVICAL [...] Tani Marie MD 12/29/2024 12:31 PM EDT Dictated By: Tani Quezada MD Signed By: <Electronically signed by Tani Sy MDin OV> 12/29/24 1231 DD/ 1137 TD/TT: 12/29/24 1200 Bread Packer: Reina Hernandez MD IMG XR PROCEDURES Final Re sult * FL Esophagus Barium Swallow (11/16/2024 9:13 AM EST) Anatomical Region Laterality Modality Head, Neck Radiographic Bettye ging 11/16/2024 9:13 AM EST Narrative 11/17/2024 8:23 AM EST ? [facility] ?[address] ?[place] [address] ? Fluoroscopy Report ? Signed ? Patient: Sukh,Stephanie ?MR#: MM ?? [id number] ? : 1955 ?Acct:[id number] ? Age/Sex: 69 / F ?ADM Date: 11/16/24 ? Loc: HO.XRAY ? Attending Dr: Carey TATE ? Ordering Physician: Carey Carson ?? Date of Service: 11/16/24 ?? Procedure(s): FL barium swallow ?? Accession Number(s): [id number] ? cc: Carey Carson; Sima Kaur ? EXAMINATION: ?? XR BARIUM SWALLOW ? CLINICAL INFORMATION: ?? Dysphagia. ? COMPARISON: ?? None available. ? TECHNIQUE: ?? Routine upright and prone lying down barium swallow was performed with ?? thick barium and effervescent granules. ? FINDINGS: ?? Following oral administration of thick barium in upright view there is ?? normal perfusion bolus from the oral cavity through the pharynx, ?? esophagus into stomach without obstruction, narrowing or extrinsic ?? compression. No laryngeal penetration or aspiration seen. There is a ?? ventral plate and screw at C5-6 disc level for fusion. ? On placing patient prone oblique and oral administration of thick ?? barium there is normal and the great flow seen through the entire ?? esophagus without any obstruction or narrowing. There is no ?? gastroesophageal reflux seen in lying supine view. ? FLUOROSCOPY TIME: ?? 1 minute 46 seconds ? DOSE AREA PRODUCT: ?? 656.9 uGy-m2 (microgray-meter squared) ? FL/FL barium swallow ?? IMPRESSION: ?? Unremarkable barium swallow examination an upright and lying position. ? Electronically signed by: ??Johann Connelly MD ??11/17/2024 08:21 AM EST RP ? Dictated By: ?Maricel,Johann S MD ? Signed By: ?<Electronically signed by Johann S Maricel, in OV> ?11/17/24 0821 ? DD/DT: 11/16/ 0913 ? TD/TT: 11/16/ 0940 ? Bread Packer: MSM ? Procedure Note Donotuseinterpreter, Image - 11/17/[address] [address] Fluoroscopy Report Signed Patient: Stephanie LuzMR#: [id number] : 1955cct:[id number] Age/Sex: 69 / FADM Date: 11/16/24 Loc: HOEMILY Attending Dr: Carey TATE Ordering Physician: Carey Carson Date of Service: 11/16/24 Procedure(s): FL barium swallow Accession Number(s): [id number] cc: Carey Carson; Sima Kaur EXAMINATION: XR BARIUM SWALLOW CLINICAL INFORMATION: Dysphagia. COMPARISON: None available. TECHNIQUE: Routine upright and prone lying down barium swallow was performed with thick barium and effervescent granules. FINDINGS: Following oral administration of thick barium in upright view there is normal perfusion bolus from the oral cavity through the pharynx, esophagus into stomach without obstruction, narrowing or extrinsic compression. No laryngeal penetration or aspiration seen. There is a ventral plate and screw at C5-6 disc level for fusion. On placing patient prone oblique and oral administration of thick barium there is normal and the great flow seen through the entire esophagus without any obstruction or narrowing. There is no gastroesophageal reflux seen in lying supine view. FLUOROSCOPY TIME: 1 minute 46 seconds DOSE AREA PRODUCT: 656.9 uGy-m2 (microgray-meter squared) FL/FL barium swallow IMPRESSION: Unremarkable barium swallow examination an upright and lying position. Electronically signed by: Johann Connelly MD 11/17/2024 08:21 AM EST Dictated By: Johann Connelly MD Signed By: <Electronically signed by Johann Connelly MD in OV> 11/17/24820 DD/ 0913 TD/TT: 11/16/24 0940 Bread Packer: DARLINE [facility] nal Provider IMG FLUOROSCOPY PROCEDURES Edited Result - Final * (ABNORMAL) POCT A1C (08/16/2024 9:18 AM EDT) Hemoglobin A1C 7.4(A) 4.0 - 6.0 % QC Media Lot # [id number] Lot# Expiration Date [id number] Blood 08/16/2024 9:18 AM EDT us Sima Kaur MD POINT OF CARE TEST ENTER/EDIT ORDERABLES Final Result * BI Mammogram Screening Tomosynthesis Bilateral (07/01/2024 11:30 AM EDT) Anatomical Region Laterality Modality Breast Bilateral Mammography 07/01/2024 11:3 0 AM EDT Narrative 07/14/2024 7:50 PM EDT ? [facility] ? [address] ?[place] [address] ? Mammography Report ? Signed ? Patient: Sukh,Stephanie ?MR#: MM ?? [id number] ? : 1955 ?Acct:[id number] ? Age/Sex: 69 / F ?ADM Date: 07/01/24 ? Loc: HO.MAMMO ? Attending Dr: Sima Kaur MD ? Ordering Physician: Sima Kaur ?Results: 0Incomple ?? te: Needs Additional Imaging Evaluation ? Date of Service: 07/01/24 ?Follow Up: Additional Imagi ?? ng ? Procedure(s): MM tomosynthesis screening BI ?? Accession Number(s): [id number] ? cc: Sima Kaur ? EXAMINATION: ?? [...] next mammogram. ? Electronically signed by: ??Felicia Nidastephen DO ??07/14/2024 07:47 PM EDT ?? RP ? Dictated By: ?Felicia English DO ? Signed By: ?<Electronically signed by Felicia English, DO in OV> ? 07/14/24 1947 ? DD/ 1130 ? TD/TT: 07/01/24 1149 ? Bread Packer: ? Procedure Note Juan, Image - 07/14/2024 [facility] [address] [place] [address] [place] [address] Mammography Report Signed Patient: Stephanie LuzMR#: MM [id number] : 1955cct:[id number] Age/Sex: 69 / FADM Date: 07/01/24 Loc: HO.MAMMO Attending Dr: Sima Kaur MD Ordering Physician: Kleber Kaurults: 0Incomple te: Needs Additional Imaging Evaluation Date of Service: 07/01/24Follow Up: Additional Imagi ng Procedure(s): MM tomosynthesis screening BI Accession Number(s): [id number] cc: Sima Kaur EXAMINATION: MM SCREENING DIGITAL [...] OV> 07/14/241946 DD/ 1130 TD/TT: 07/01/24 1149 Bread Packer: Sima Kaur MD IMG BI PROCEDURES Edited Resul t - Final * Hepatitis C Antibody with Reflex to HCV, RNA, Quantitative, Real-Time PCR (05/25/2024 11:37 AM EDT) Hepatitis C Antibody Nonreactive Nonreactive [facility] Comment:Antibodies to HCV no t detected; does not exclude early acuteHCV infection. Blood Venous blood specimen / Unknown 05/25/2024 11:37 AM EDT 05/25/2024 1:24 PM EDT Sima Kaur MD LAB BLOOD ORDERABLES Final Res ult [facility] [address] [place] [phone] * (ABNORMAL) Lipid Panel, Standard (11/24/2023 12:45 PM EST) Triglycerides 186(H) <150 mg/dL [facility] Comment:Desirable Triglyceri de: less than 150 mg/dLBorderline High Triglyceride 150-199 mg/dLHigh Triglyceride: 200-499 mg/dLVery High Triglyceride: greater than or equal to 5OO mg/dL Cholesterol 103 <200 mg/dL [facility] Comment:Desirable Cholestero l: less than 200 mg/dLBorderline High Cholesterol: 200-239 mg/dLHigh Cholesterol: greater than 239 mg/dL LDL Cholesterol Calculated 37 <100 mg/dL [facility] Comment:Desirable LDL: less than 100 mg/dLNear Optimal/Above Optimal LDL: 110- 129 mg/dLBorderline High LDL: 130-159 mg/dLHigh LDL: 160-189 mg/dLVery High LDL: greater than or equal to 190 mg/dL HDL Cholesterol 29(L) >40 mg/dL [facility] Comment:Desirable HDL: great er than 40 mg/dL Note: This HDL assay may give artificially low results in patients with liver disease. Blood Venous blood specimen / Unknown 11/24/2023 12:45 PM EST 11/24/2023 1:10 PM EST Sima Kaur MD LAB BLOOD ORDERABLES Final Res ult Performing Organization Address [facility]/ZIP Co de Phone Number [facility] [address] [place] [phone] * HPV mRNA E6/E7 w/Reflex to HPV Genotypes 16, 18/45 (2023 12:00 AM EDT) HPV nRNA E6/E7 Not Detected Not Detected [facility] Comment:Methodology: Transcr iption-Mediated AmplificationThis assay detects E6/E7 viral messenger RNA (mRNA) from 14high-risk HPV types (16,18,31,33,35,39,45,51,52,56,58,59,66,68).Cervical sources are required for HPV testing.If a vaginal source from a patient who has had atotal hysterectomy with removal of cervix wassubmitted, please contact the testing laboratoryfor alternative testing options.For additional information, please refer tohttp://education.Lvmae/faq/QHI248x6(This link if provided for information/educational purposes only.)THIS TEST WAS PERFORMED AT:[employer] [place] [phone] NEWMAN MD HPV mRNA E6/E7 [facility] HPV 16 RNA [facility] HPV 18/45 RNA [facility] 2023 06/16/2023 1:5 0 PM EDT Sima Kaur MD LAB CYTOLOGY ORDERABLES Final Result Performing Organization Address City/[facility]/ZIP Co de Phone Number [facility] [address] [place] [phone] * Pap Smear (2023) 2023 06/16/2023 1:5 0 PM EDT Narrative [facility] - 06/28/2023 2:14 PM EDT ----- ------- Name: Stephanie Luz ? Age/Sex: 68/F ? : 1955 Unit#: [id number] ?? Attend Dr: Sima Kaur ?Re06/13/23 ?Status: DEP REF ? Location: HO.LNP ?Disch: ? ----- ------- SPEC : [id number] ?RECD: 06/16/23-9360 ? STATUS: ??SOUT ? REQ NUM: [id number] ? CAMI: 06/13/23- ? SUBM DR: Sima Kaur ? ENTERED: ??06/16/23-8897 ?SP TYPE: Pap Smr ?OTHR DR: ? ORDERED: ??Pap Smear ? Interpretation ?? Satisfactory for evaluation. ?? Negative for intraepithelial lesion or malignancy. ? HPV mRNA E6/E7: ?NOT DETECTED ? This assay detects E6/E7 viral messenger RNA (mRNA) from 14 high-risk HPV types (16, 18, ?? 31, 33, 35, 39, 45, 51, 52, 56, 58, 59, 66, 68) ? HPV testing performed by [employer], [place], [place]. ??See reference laboratory ?? portion of the EMR for entire report. ?Clinical Information LMP:Unknown date Previous PAP test:Unknown date/findings ? Material Received ?? ThinPrep-Vaginal/Cervical ----- ------- Signed (signature on file) Lin Davis Darlene 06/28/23 1414 ? ----- ------- ? END OF REPORT ? Sima Kaur MD LAB CYTOLOGY ORDERABLES Final Result [facility] [address] [place] [phone] [phone] from Last 3 Months or Most Recently Relevant to Health Maintenance Insurance [facility] * Guarantor: Sukh Stephanie Account Type Relation to Patient Date of Phone Billing Address Personal/Family Self [address] JULIO Sheehan21 Care Teams Auditor Supervisor Relationship Specialty Start Date End Date Sima Kaur MD [address] [place] [phone] PCP - General Family Medicine 11/28/20
--- OUTSIDE RECORDS SUMMARY | 2024-12-29 13:46 | XMS_ITS | Encounter Summary ---
Author Organization [employer] [facility] Address [address] [place] [address] [address] [place] [address] Care Team Providers Care Cook Pressure Name Role Phone Sima Kaur MD Primary Care Provider Encounter Details Date Type Department Care Team (Late st Contact Info) Description 06/20/2023 Orders Only [facility] MEDICINE [address] [place] [address] [phone] Sima Kaur MD [address] [place] [address] [phone] Poison abraham dermatitis (Primary Dx) Social History [...] Description 01/19/2025 3:15 PM EDT Office Visit [facility] MEDICINE [address] [place] [address] [phone] Sima Kaur MD [address] [place] [address] [phone] documented as of this encounter Visit Diagnoses Diagnosis Poison abraham dermatitis- Primary documented in this encounter Additional Health Concerns Assessment Noted Time PHQ-9 Depression Total Score: 9 03/03/20 23 9:28 AM EDT documented as of this encounter Care Teams Cook Pressure Relationship Specialty Start Date End Date Sima Kaur MD [address] [place] [address] PCP - General Family Medicine 11/28/20 documented as of this encounter
--- OUTSIDE RECORDS SUMMARY | 2024-12-29 13:46 | XMS_ITS | Encounter Summary ---
Author Organization [employer] [facility] Address [address] [place] [address] Care Team Providers Care Business Management Analyst Name Role Phone Sima Kaur MD Primary Care Provider [phone] Reason for Visit * Reason Onset Date Comments Nurse Triage 09/08/2024 ER Follow-up 09/08/2024 Encounter Details Date Type Department Care Team ([facility] st Contact Info) Description 09/08/2024 Telephone [facility] MEDICINE [address] [place], [place] [phone] Sima Kaur MD [address] [place], [place] [phone] Nurse Triage; ER Follow-up Social History Tobacco [...] EST Triage call Pt was seen [place] [facility] [place] ear [place]. Pt was prescribed [...] 09/04/24. Pt is advised to come to [facility] today open till 8pm. No [...] ED visit on : Date: 09/04/24 Hospital: [facility] Seen for: Ear infection Pt stated she is having trouble with the medication prescribed. Pt reported following symptoms earache, swollen grands, and coughing Patient advised will forward to triage nurse. Contact pt at [phone] documented in this encounter Plan of Treatment Upcoming Encounters Date Type Department Care Team (Late st Contact Info) Description 01/19/2025 3:15 PM EDT Office Visit [facility] MEDICINE [address] [place] [address] Sima Kaur MD [address] [place] [phone] documented as of this encounter Visit Diagnoses Not on filedocumented in this encounter Additional Health Concerns Assessment Noted Time PHQ-9 Depression Total Score: 10 024 11:02 AM EDT documented as of this encounter Care Teams Business Management Analyst Relationship Specialty Start Date End Date Sima Kaur MD [address] [place] [address] [phone] PCP - General Family Medicine 11/28/20 documented as of this encounter
== END 2024-12-29 11:37 | disposition home or self-care (01) ==
LOC: HO.HHCX 11:36
PROVIDERS: Visit Provider Family Medicine
DX: M54.2 Cervicalgia (principal)
CPT/HCPCS: 72050

== ENCOUNTER → 2024-12-29 11:37 | Outpatient (BNV) | payer OTHER, SELFPAY | PROVIDERS: Visit Provider Radiology Diagnostic Radiology | DX: M54.2 Cervicalgia (principal) | CPT/HCPCS: 72050 ==

== ENCOUNTER 2024-12-30 07:52 | Day surgery (SDC) | payer OTHER, SELFPAY ==
[2024-12-28 13:45] VITALS: BMI 28.2
--- NOTE | 2024-12-29 08:31 | HO.ANESPROP2 ---
Documented by User: Betty Parker NP 12/29/24 08:33 HPI - Anesthesia Eval Consult details Narrative: 69yo F for Upper Endoscopy [place] [facility] [place]. Stable at yearly visit 12/2023 (offered prn only f/u) Anesthesia Pre-Procedure Meds Is the patient on any of the following meds?: GLP1/DPP4 PMFSH Active Problems Active Problems: All Active Problems Dysphagia (Acute) Status migrainosus (Acute) Hypokalemia (Acute) Fatigue (Acute) Paresthesia (Acute) GERD (gastroesophageal reflux disease) (Acute) Arthritis of carpometacarpal (CMC) joint of right thumb (Acute) Postoperative pillar pain (Acute) Carpal tunnel syndrome (Acute) Celiac disease (Acute) Chronic idiopathic constipation (Acute) Impingement syndrome of right shoulder (Acute) Tubular adenoma of colon (Acute) Sacroiliac joint dysfunction (Acute) Cervicalgia (Acute) SHUN (obstructive sleep apnea) (Acute) Sleep difficulties (Acute) Restless leg syndrome (Acute) Diabetes (Acute) High cholesterol (Acute) HTN (hypertension) (Acute) Spondylosis of lumbar spine (Acute) Past Medical History Medical History Bleeding hemorrhoids Nausea Epigastric pain Hand pain, right Chronic migraine without aura Carpal tunnel syndrome of left wrist Pain of left thumb Numbness and tingling in left hand Carpal tunnel syndrome of right wrist Right arm numbness Arthritis of right shoulder region GERD (gastroesophageal reflux disease) Spondylosis of lumbar spine Diabetes High cholesterol HTN (hypertension) Back pain, chronic Migraines Family History Family History Father History of heart attack Mother Hx of type 1 diabetes mellitus Family history of high blood pressure Family history of problems with anesthesia: No Surgical History Surgical History S/P carpal tunnel release History of fusion of cervical spine History of carpal tunnel release History of hemorrhoidectomy (~04/01/23) History of esophagogastroduodenoscopy (EGD) Hx of fusion of cervical spine Hx of colonoscopy Hx of cholecystectomy Hx of tubal ligation History of Problems with Anesthesia: No Social History Social History Alcohol intake: never Patient Tobacco Use Status: Current everyday Tobacco user Tobacco use type: Cigarette Cigarette Packs Per Day: 0.5 Cigarettes Per Day: 10 Years Smoked: 45 Current occupational status: employed 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 [employer] Meds Allergies Allergy/AdvReac Type Severity Reaction Status Date / Time codeine AdvReac Intermediate vertigo, Verified 11/10/24 10:03 nausea Home Medications ?Medication ?Instructions ?Recorded ?Confirmed ?Last Taken ?Type atenolol 50 mg tablet 75 mg PO DAILY 08/08/20 12/30/24 12/30/24 History cholecalciferol (vitamin D3) 25 25 mcg PO DAILY 08/08/20 12/30/24 Unknown History mcg (1,000 unit) capsule (Vitamin D3) hydrochlorothiazide 25 mg tablet 25 mg PO DAILY 08/08/20 12/30/24 03/31/23 History lisinopril 20 mg tablet 20 mg PO DAILY 08/08/20 12/30/24 03/31/23 History dapagliflozin propanediol 5 mg 5 mg PO DAILY 03/21/22 12/30/24 12/25/24 History tablet (Farxiga) glipizide 10 mg tablet, extended 20 mg PO DAILY 08/21/22 12/30/24 03/31/23 History release 24 hr lancets 28 gauge (FreeStyle #100 ea 08/21/22 12/30/24 Unknown History Lancets) dulaglutide 3 mg/0.5 mL 3 mg subcut QWEEK 08/26/24 12/30/24 12/09/24 History subcutaneous pen injector (Trulicity) Exam Height,Weight and Vital Signs: Height 5 ft 1 in Weight 67.585 kg Assessment and Plan Assessment Anesthesia Assessment: Chart Reviewed Final Anesthetic Review Family History of Problems with Anesthesia: No History of Problems with Anesthesia: No Documented by User: Dee Lombardi MD 12/30/24 11:33 HPI - Anesthesia Eval Anesthesia Pre-Procedure Meds Is the patient on any of the following meds?: GLP1/DPP4 (Last dose of dulaglutide 12/09/24) and SGLT2 Inhib (Last dose of Farxiga 12/25/24) If yes to any meds - educate patient: Pt education - increased risk of aspiration and/or euvolemic DKA PMFSH Active Problems Active Problems: All Active Problems Dysphagia (Acute) Status migrainosus (Acute) Hypokalemia (Acute) Fatigue (Acute) Paresthesia (Acute) GERD (gastroesophageal reflux disease) (Acute) Arthritis of carpometacarpal (CMC) joint of right thumb (Acute) Postoperative pillar pain (Acute) Carpal tunnel syndrome (Acute) Celiac disease (Acute) Chronic idiopathic constipation (Acute) Impingement syndrome of right shoulder (Acute) Tubular adenoma of colon (Acute) Sacroiliac joint dysfunction (Acute) Cervicalgia (Acute) SHUN (obstructive sleep apnea) (Acute)- Not using CPAP machine. Insurance not covering Sleep difficulties (Acute) Restless leg syndrome (Acute) Diabetes (Acute) High cholesterol (Acute) HTN (hypertension) (Acute) Spondylosis of lumbar spine (Acute) Past Medical History Medical History Bleeding hemorrhoids Nausea Epigastric pain Hand pain, right Chronic migraine without aura Carpal tunnel syndrome of left wrist Pain of left thumb Numbness and tingling in left hand Carpal tunnel syndrome of right wrist Right arm numbness Arthritis of right shoulder region GERD (gastroesophageal reflux disease) Spondylosis of lumbar spine Diabetes High cholesterol HTN (hypertension) Back pain, chronic Migraines Family History Family History Father History of heart attack Mother Hx of type 1 diabetes mellitus Family history of high blood pressure Family history of problems with anesthesia: No Surgical History Surgical History S/P carpal tunnel release History of fusion of cervical spine History of carpal tunnel release History of hemorrhoidectomy (~04/01/23) History of esophagogastroduodenoscopy (EGD) Hx of fusion of cervical spine Hx of colonoscopy Hx of cholecystectomy Hx of tubal ligation History of Problems with Anesthesia: No Social History Social History Alcohol intake: never Patient Tobacco Use Status: Current everyday Tobacco user Tobacco use type: Cigarette Cigarette Packs Per Day: 0.5 Cigarettes Per Day: 10 Years Smoked: 45 Current occupational status: employed 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 [employer] Meds Allergies Allergy/AdvReac Type Severity Reaction Status Date / Time codeine AdvReac Intermediate vertigo, Verified 11/10/24 10:03 nausea Home Medications ?Medication ?Instructions ?Recorded ?Confirmed ?Last Taken ?Type atenolol 50 mg tablet 75 mg PO DAILY 08/08/20 12/30/24 12/30/24 History cholecalciferol (vitamin D3) 25 25 mcg PO DAILY 08/08/20 12/30/24 Unknown History mcg (1,000 unit) capsule (Vitamin D3) hydrochlorothiazide 25 mg tablet 25 mg PO DAILY 08/08/20 12/30/24 03/31/23 History lisinopril 20 mg tablet 20 mg PO DAILY 08/08/20 12/30/24 03/31/23 History dapagliflozin propanediol 5 mg 5 mg PO DAILY 03/21/22 12/30/24 12/25/24 History tablet (Farxiga) glipizide 10 mg tablet, extended 20 mg PO DAILY 08/21/22 12/30/24 03/31/23 History release 24 hr lancets 28 gauge (FreeStyle #100 ea 08/21/22 12/30/24 Unknown History Lancets) dulaglutide 3 mg/0.5 mL 3 mg subcut QWEEK 08/26/24 12/30/24 12/09/24 History subcutaneous pen injector (Trulicity) Exam Height,Weight and Vital Signs: Height 5 ft 1 in Weight 67.585 kg Vital Signs Temp Pulse Resp BP Pulse Ox O2 Del Method 12/30/24 08:05 97 F 63 18 136/78 96 Room Air Pertinent Lab Results Pertinent Lab Results: Lab Results 12/30/24 Range/Units 08:13 POC Glucose 203 H (60-115) mg/dL Airway Mallampati Class: II TM Dist: >3cm Neck ROM: Limited (Pain sides of neck radiating to back of neck) Partial: Upper Loose/Missing/Broken Teeth: Yes (Partial dentures top. Denies broken or loose teeth) Heart: RRR Lungs: CTAB Assessment and Plan Assessment Anesthesia Assessment: Anesthesia Plan Discussed and Chart Reviewed Final Anesthetic Review Family History of Problems with Anesthesia: No History of Problems with Anesthesia: No NPO: Yes ASA Class: III Final Preanesthetic Review: No Changes in Pt Med Stat, Meds/Allgs Chart Reviewed, Consent Obtained/Reviewed and Anes Risks/Benef Reviewed Patient Risk: Intermediate Procedure Risk: Low Assessment/Block/Sedation in SS: Assess/Block/Sedation-SS Anesthetic Plan Anesthetic Plan: TIVA Disposition: Standard PACU
[2024-12-30 08:05] VITALS: BP 136/78; PULSE 63; RESP 18; TEMP 36.1; O2SAT 96; BMI 28.4
[2024-12-30 08:19] LABS: Glucose, Whole Blood 203 mg/dL (60-115)
[2024-12-30] MEDS: Lactated Ringers 1,000 ML 100 ML IVCONT (08:31)
--- NOTE | 2024-12-30 08:34 | MHC.SHP ---
Pre-Procedural Eval Section A - 24 Hr Update-Section A only Date of Service: 12/30/24 Section B - Complete if H&P > 30 days Chief Complaint: Dysphagia, celiac disease Details of Present Illness: celiac disease Back pain, chronic Diabetes GERD (gastroesophageal reflux disease) High cholesterol HTN (hypertension) Migraines Spondylosis of lumbar spine Surgical History Hx of cholecystectomy Hx of colonoscopy Hx of fusion of cervical spine Hx of rectal sphincterotomy Hx of tubal ligation Present Medications: see Short Stay Collaborative assessment Allergies: Allergies Allergy/AdvReac Type Severity Reaction Status Date / Time codeine AdvReac Intermediate vertigo, Verified 11/10/24 10:03 nausea Review of Systems Review of Systems Comment: 10 point ROS negative Exam Exam Comment: Gen appear: No acute distress HEENT: no icterus Chest: No overt resp distress Abd: soft, nontender, nondistended Psych: Stable affect, answering questions appropriately Neuro: A/Ox3 noted to move all extremities spontaneously Ext: no peripheral edema Plan Diagnosis/Plan: Unchanged I have reviewed the history and physical and performed a pertinent physical examination on my patient. No changes have occurred unless specified. Time Spent With Patient Time: Total time managing care of this patient today ____ minutes.
[2024-12-30 11:14] VITALS: BP 110/49; PULSE 71; RESP 19; TEMP 36.2; O2SAT 95
--- NOTE | 2024-12-30 11:21 | P.OP_ITS ---
Operative Note Operative Note Date of Service: 12/30/24 Narrative: Procedure: Esophagogastroduodenoscopy Endoscopist: Johanna Kuo MD Indication: Dysphagia, celiac disease Anesthesia Provider: Dr Dee Lombardi Anesthesia Type: MAC ?? EGD Procedure:?? The procedure, indications, preparation and potential complications were reviewed with the patient, who indicated understanding and gave written informed consent to proceed. A physical exam was performed. The endoscope was introduced through the mouth, and advanced to the second part of duodenum. The mucosa was carefully examined on slow withdrawal of the endoscope. The patient tolerated the procedure well. There were no immediate complications.? ? EGD Findings:? * Esophagus:? Normal mucosa noted in the entire esophagus. The Z line was at 38 cm. Middle and lower esophagus forceps biopsies were obtained to rule out eosinophilic esophagitis. * Stomach:? Mild erythema noted in antrum. A small polyp was noted just below GE junction visible in anterograde view. Cold forceps polypectomy was performed. Retroflexion was performed in the cardia. Random cold forceps gastric biopsies were taken to rule out H Pylori infection. * Duodenum:? Normal mucosa was noted in the whole of the examined duodenum. Cold forceps biopsies were taken from duodenal bulb and second portion of the duodenum to rule out celiac sprue. Additional intervention: Soft tip Savary wire was introduced through the biopsy channel of the gastroscope and advanced to the antrum. ?The gastroscope was then backed out. ?Savary Zaida bougie was advanced over the guidewire and the esophagus was dilated to 19 with resistance felt. ?On relook, no heme or tear was noted. ? ? EGD Impressions:? * Normal esophagus (biopsy, dilation) * Gastritis * Normal duodenum (biopsy) ?? Recommendations:?? * Follow biopsy results. Our office will call or send a letter with results within 7-10 days. * Avoid NSAIDs. * If there is improvement in dysphagia, EGD with dilation can be repeated as needed for recurrence of symptoms. Above has been reviewed with the patient.
[2024-12-30 11:29] VITALS: BP 126/62; PULSE 63; RESP 18; TEMP 36.1; O2SAT 95
== END 2024-12-30 11:54 | disposition home or self-care (01) ==
PROVIDERS: PCP General Practice; Visit Provider Internal Medicine
PROC: 0DJ08ZZ Inspection of Upper Intestinal Tract, Via Natural or Artificial Opening Endoscopic (ICD-10-PCS; CPT 43235; principal; 2024-12-30 10:10)
DX: R13.10 Dysphagia, unspecified (principal); R10.13 Epigastric pain; R14.0 Abdominal distension (gaseous); K21.9 Gastro-esophageal reflux disease without esophagitis; K31.7 Polyp of stomach and duodenum; K29.50 Unspecified chronic gastritis without bleeding; K90.0 Celiac disease; K86.81 Exocrine pancreatic insufficiency; K58.1 Irritable bowel syndrome with constipation; G43.909 Migraine, unspecified, not intractable, without status migrainosus; I10 Essential (primary) hypertension; E78.00 Pure hypercholesterolemia, unspecified; E11.9 Type 2 diabetes mellitus without complications; M54.50 Low back pain, unspecified; G89.29 Other chronic pain; G47.33 Obstructive sleep apnea (adult) (pediatric); Z79.84 Long term (current) use of oral hypoglycemic drugs; Z79.85 Long-term (current) use of injectable non-insulin antidiabetic drugs; Z79.899 Other long term (current) drug therapy; Z88.5 Allergy status to narcotic agent; Z98.890 Other specified postprocedural states; F17.210 Nicotine dependence, cigarettes, uncomplicated
CPT/HCPCS: 43249; 43239; 82947; 88305; 88313; 88342; J2003; J2704

== ENCOUNTER → 2024-12-30 07:52 | Outpatient (BNV) | payer OTHER, SELFPAY | PROVIDERS: PCP General Practice; Visit Provider Internal Medicine | DX: R13.10 Dysphagia, unspecified (principal); K90.0 Celiac disease; K29.70 Gastritis, unspecified, without bleeding | CPT/HCPCS: 43239; 43248 ==

== ENCOUNTER 2025-01-03 09:50 | Outpatient (AMB) | payer OTHER, SELFPAY ==
--- NOTE | 2025-01-03 10:01 | MHC.OFFVIS ---
Vital Signs 01/03/25 10:02 Height 5 ft 1 in Weight 153 lb 14.122 oz BMI 29.1 BP 148/80 H Blood Pressure Location Lt brachial Position Sitting Pulse 70 Pulse Source Monitor Intake Visit Reasons: 1 yr f/up KM Hydrometeorological Technician Required: No Allergies codeine Adverse Reaction (Intermediate, Verified 01/03/25 10:04) vertigo, nausea Medication List - Last Reconciled 01/03/25 by Jacqueline Tadeo, HEALTH SAFETY AND ENVIRONMENT MANAGER-C atenolol 75 mg PO DAILY atogepant (Qulipta) 60 mg PO DAILY 30 days atorvastatin 40 mg PO BEDTIME cholecalciferol (vitamin D3) (Vitamin D3) 25 mcg PO DAILY clonazepam 0.5 mg PO BEDTIME 30 days dapagliflozin propanediol (Farxiga) 5 mg PO DAILY dulaglutide (Trulicity) 3 mg subcut QWEEK famotidine (Pepcid) 40 mg PO BEDTIME galcanezumab-gnlm (Emgality Pen) 120 mg subcut ONCE 30 days glipizide ER 20 mg PO DAILY hydrochlorothiazide 25 mg PO DAILY lancets (FreeStyle Lancets) As directed lisinopril 20 mg PO DAILY rizatriptan 5 - 10 mg (0.5 - 1 x 10 mg) PO Q2H PRN 30 days HPI HPI 1 yr f/up KM: Details: Stephanie is a 69-year-old female with past medical history of hypertension, hyperlipidemia, diabetes, mild sleep apnea with no CPAP use, mild LVH who presents for follow-up. Today she reports that she has been having issues with her neck. She says she had testing which showed she has a disc problem. She has discomfort which is likely contributing to her mildly elevated blood pressure reading at this time. She denies having chest discomfort at rest or with activity. She denies shortness of breath, PND, orthopnea or edema. No heart palpitations, lightheadedness, presyncope, syncope. Her activity is currently limited by her neck discomfort. Compliant with meds. [facility] Medical History Bleeding hemorrhoids Nausea Epigastric pain Hand pain, right Chronic migraine without aura Carpal tunnel syndrome of left wrist Pain of left thumb Numbness and tingling in left hand Carpal tunnel syndrome of right wrist Right arm numbness Arthritis of right shoulder region GERD (gastroesophageal reflux disease) Spondylosis of lumbar spine Diabetes High cholesterol HTN (hypertension) Back pain, chronic Migraines Surgical History S/P carpal tunnel release History of fusion of cervical spine History of carpal tunnel release History of hemorrhoidectomy (~04/01/23) History of esophagogastroduodenoscopy (EGD) Hx of fusion of cervical spine Hx of colonoscopy Hx of cholecystectomy Hx of tubal ligation Family History Father History of heart attack Mother Hx of type 1 diabetes mellitus Family history of high blood pressure Social History Alcohol intake: never Patient Tobacco Use Status: Current everyday Tobacco user Tobacco use type: Cigarette Cigarette Packs Per Day: 0.5 Cigarettes Per Day: 10 Years Smoked: 45 Current occupational status: employed 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 Review of Systems Const All systems reviewed & are unremarkable except as noted in HPI and below ENT Denies dizziness Card Denies chest pain, Denies chest pain at rest, Denies chest pain with activity, Denies rapid heart rate, Denies pedal edema, Denies edema, Denies leg edema, Denies lightheadedness, Denies palpitations, Denies dyspnea, Denies dyspnea on exertion and Denies orthopnea Resp Denies cough, Denies dyspnea and Denies dyspnea on exertion GI Denies hematochezia and Denies change in stool character Musc Denies abnormal gait, Denies limited range of motion, Denies muscle cramps, Denies muscle weakness, Denies numbness, Denies radiating pain into limb, Denies stiffness and Denies tingling Neuro Denies abnormal gait, Denies dizziness, Denies numbness and Denies tingling Endo Denies palpitations Physical Exam Vital Signs: Last Vital Signs Pulse 70 01/03/25 10:02 BP 148/80 H 01/03/25 10:02 BMI result Body Mass Index 29.1 Const General: cooperative, healthy appearing, comfortable and no acute distress Orientation/consciousness: patient oriented x3 Neck Neck: Yes normal visual inspection Resp Effort & Inspection: normal respiratory effort Auscultation: clear to auscultation bilaterally, no rales, no rhonchi and no wheezes Cardio Rate: regular rate Rhythm: regular rhythm Heart sounds: S1 normal heart sound present, S2 normal heart sound present, no gallops, no murmurs and no rubs Neuro General: patient oriented x3 Extrem General: Yes normal to inspection and No no pedal edema Psych Appearance: grossly normal Mental Status: mental status grossly normal Speech and movement: Normal speech and movement present Office Procedures EKG Details: Today, read by me, Sinus rhythm with one PAC, nonspecific T wave abn, rate 70, Qtc 414ms [id number], Complete Assessment & Plan Assessment & Plan (1) Abnormal EKG: Code(s): R94.31 - Abnormal electrocardiogram [ECG] [EKG] Category: Medical Plan: Prior EKGs reviewed showing sinus rhythm with nonspecific T-wave abnormality. EKG done today showing sinus rhythm with PAC, nonspecific T-wave abnormality with a slight T-wave inversion appearance in V4 and V5. This is more noticeable then prior EKG. She is asymptomatic. She does have multiple cardiac risk factors. Last echo 07/09/2021 showed EF 55-60%, no regional wall motion abnormalities and mild LVH. Will update echo to ensure there is no change in EF or wall motion. Will consider nuclear stress test if echo shows abnormalities. Signs and symptoms of angina reviewed with her. Continue with risk factor modification. (2) HTN (hypertension): Code(s): I10 - Essential (primary) hypertension Category: Medical Plan: Mild elevation today, likely related to current pain from cervical disc disease. Recheck done by me at end of visit 134/72. Labs 05/25/2024 showed potassium 4.1, creatinine 0.87. No med changes made. Continue atenolol, hydrochlorothiazide and lisinopril. (3) High cholesterol: Code(s): E78.00 - Pure hypercholesterolemia, unspecified Category: Medical Plan: [place] LDL goal less than 70 in patient with diabetes. Labs 11/24/2023 had shown LDL 37. Recommend updated lipid profile. Continue atorvastatin. (4) SHUN (obstructive sleep apnea): Comment: AHI 6/hr Code(s): G47.33 - Obstructive sleep apnea (adult) (pediatric) Category: Medical Plan: Mild obstructive sleep apnea. She does not wear CPAP (5) Diabetes: Code(s): E11.9 - Type 2 diabetes mellitus without complications Category: Medical Plan: Hemoglobin A1c goal less than 7. Followed by PCP. Plan Time spent on chart review, documentation, interview and assessment Orders: Orders CA echo transthorac w con Today G47.33 - Obstructive sleep apnea (adult) (pediatric), R94.31 - Abnormal electrocardiogram [ECG] [EKG] Coding Level of Care Code Est Pt Level 4 (99987) Complex EM visit Add On G2211 Diagnoses Abnormal EKG R94.31 HTN (hypertension) I10 High cholesterol E78.00 SHUN (obstructive sleep apnea) G47.33 Diabetes E11.9 CPT Codes EKG - CPT: [id number], Complete ([id number]) Time Spent (min) 28
[2025-01-03 10:02] VITALS: BP 148/80; PULSE 70; BMI 29.1
--- OUTSIDE RECORDS SUMMARY | 2025-01-03 10:51 | XMS_ITS | Encounter Summary ---
Author Organization [email or web address] Address [address] [place] [address] Care Team Providers Care Cloth Bleaching Supervisor Name Role Phone Sima Kaur MD Primary Care Provider [phone] Reason for Visit * Reason Onset Date Comments Results 12/29/2024 Encounter Details Date Type Department Care Team ([facility] st Contact Info) Description 12/29/2024 Telephone [facility] [address] [place], [place] [phone] Tiarra Bassett RN Results Social History Tobacco Use Types Packs/Day Years [...] encounter Miscellaneous Notes * Telephone Encounter - Noel Cassidy - 12/29/2024 3:56 PM EDT Tc from pt returning call in regards message prior. Pt requests to call her in tomorrow afternoon as she has appointment in the AM. * Telephone Encounter - Tiarra Bassett RN - 12/29/2024 3:24 PM EDT TC placed to pt and LVM to call back the office in regards to result message below ----- Message ----- From: Reina Hernandez MD Sent: 12/29/2024 12:49 PM EDT To: [facility] Red Team Nurses Please let Stephanie know x rays showed some abnormalities that could be causing her pain. Please let us know if she does not hear from ortho in a week. Thank you. documented in this encounter Plan of Treatment Upcoming Encounters Date Type Department Care Team (Late st Contact Info) Description 01/19/2025 3:15 PM EDT Office Visit [facility] [address] [place] [address] Sima Kaur MD 230 [place] [address] documented as of this encounter Visit Diagnoses Not on filedocumented in this encounter Additional Health Concerns Assessment Noted Time PHQ-9 Depression Total Score: 10 024 11:02 AM EDT documented as of this encounter Care Teams Cloth Bleaching Supervisor Relationship Specialty Start Date End Date Sima Kaur MD [address] [facility] [address] PCP - General Family Medicine 11/28/20 documented as of this encounter
--- OUTSIDE RECORDS SUMMARY | 2025-01-03 10:51 | XMS_ITS | Encounter Summary ---
Author Organization [facility] Address [address] [place] [address] 7t [place] [address] Care Team Providers Care Electron Beam Welder Name Role Phone Sima Kaur MD Primary Care Provider [phone] Encounter Details Date Type Department Care Team (Late st Contact Info) Description 06/20/2023 Orders Only [facility] MEDICINE [address] [place] [address] [phone] Sima Kaur MD [address] [place] [address] [phone] Poison abraham dermatitis (Primary Dx) Social History [...] Description 01/19/2025 3:15 PM EDT Office Visit [facility]INE [address] [place] [address] [phone] Sima Kaur MD [address] [place] [address] [phone] documented as of this encounter Visit Diagnoses Diagnosis Poison abraham dermatitis- Primary documented in this encounter Additional Health Concerns Assessment Noted Time PHQ-9 Depression Total Score: 9 03/03/20 23 9:28 AM EDT documented as of this encounter Care Teams Electron Beam Welder Relationship Specialty Start Date End Date Sima Kaur MD [address] [place] [address] PCP - General Family Medicine 11/28/20 documented as of this encounter
--- OUTSIDE RECORDS SUMMARY | 2025-01-03 10:51 | XMS_ITS | Encounter Summary ---
Author Organization [facility] Address [address] [facility] [address] [place] [address] Phone Care Team Providers Care Fretted Instrument Repairer Name Role Phone Sima Kaur MD Primary Care Provider [phone] Reason for Visit * Reason Comments Med Refill Encounter Details Date Type Department Care Team (Late Contact Info) Description 05/12/2023 Refill [facility] [address] [place] [phone] [...] Upcoming Encounters Date Type Department Care Team ([facility] Contact Info) Description 07/04/2025 1:00 PM EDT Office Visit [facility] [address] [place] [phone] Fazal Ohara MD [address] [facility] [address] [place] [address] documented as of this encounter Visit Diagnoses Not on filedocumented in this encounter Care Teams Fretted Instrument Repairer Relationship Specialty Start Date End Date Sima Kaur MD [address] [place], [place] [phone] PCP - General Cyber Transport Systems Specialist 05/24/21 documented as of this encounter
--- OUTSIDE RECORDS SUMMARY | 2025-01-03 10:51 | XMS_ITS | Encounter Summary ---
Author Organization [employer] Address [address] [facility] 7t [place] [address] Care Team Providers Care Forklift Wheel Loader Name Role Phone Sima Kaur MD Primary Care Provider [phone] Reason for Referral * Consultation (Routine) - Closed Specialty Diagnoses / Procedures Referred By Contradha t Referred To Contact Neurosurgery Diagnoses Cervical spine pain Cervical radiculopathy due to degenerative joint disease of spine Sima Kaur MD [address] [place] [address] Phone: tel: fax: Sheridan Valentine MD [address] [place] [address], [address] [place] [address] Phone: tel: fax: Referral ID Status Reason Start Date Expiration Date V isits Requested Visits Authorized [id number] Closed Specialty Services Required 05/28/2024 05/28/2025 1 0 Encounter Details Date Type Department Care Team (Late st Contact Info) Description 05/28/2024 Orders Only [facility] [address] [place], [place] [phone] Sima Kaur MD [address] [place], [place] [phone] Cervical spine pain (Primary Dx); Cervical radiculopathy [...] Description 01/19/2025 3:15 PM EDT Office Visit [facility] [address] [place] [address] Sima Kaur MD [address] [place] [address] Scheduled Referrals Name Type Priority Associated Diagnoses [...] documented as of this encounter Care Teams Forklift Wheel Loader Relationship Specialty Start Date End Date Sima Kaur MD [address] [place] [phone] PCP - General Family Medicine 11/28/20 documented as of this encounter
--- OUTSIDE RECORDS SUMMARY | 2025-01-03 10:51 | XMS_ITS | Encounter Summary ---
Author Organization [employer] Address [address] [facility] [address] 7[address] [place] [address] Care Team Providers Care Olive Knocker Name Role Phone Sima Kaur MD Primary Care Provider [phone] Reason for Visit * Reason Comments Med Refill Encounter Details Date Type Department Care Team (Late st Contact Info) Description 12/22/2024 Refill [facility] [address] [place], [place] [phone] [facility] [address] [place], [place] [phone] Essential hypertension Social History Tobacco Use Types [...] Description 01/19/2025 3:15 PM EDT Office Visit [facility] [address] [place] [address] Sima Kaur MD [address] [place] [address] documented as of this encounter Visit Diagnoses Diagnosis Essential hypertension Unspecified essential hypertension documented in this encounter Additional Health Concerns Assessment Noted Time PHQ-9 Depression Total Score: 10 024 11:02 AM EDT documented as of this encounter Care Teams Olive Knocker Relationship Specialty Start Date End Date Sima Kaur MD [address] [place] [address] PCP - General Family Medicine 11/28/20 documented as of this encounter
--- OUTSIDE RECORDS SUMMARY | 2025-01-03 10:51 | XMS_ITS | Encounter Summary ---
Author Organization [facility] Address [address] [facility] [address] [place] [address] Phone Care Team Providers Care Data Entry Operator Name Role Phone Sima Kaur MD Primary Care Provider [phone] Reason for Visit * Reason Comments Med Refill Encounter Details Date Type Department Care Team (Late Contact Info) Description 07/03/2022 Refill [facility] [address] [place] [phone] [...] Upcoming Encounters Date Type Department Care Team ([facility] Contact Info) Description 07/04/2025 1:00 PM EDT Office Visit [facility] [address] [place] [phone] Fazal Ohara MD [address] [facility] [address] [place] [address] documented as of this encounter Visit Diagnoses Not on filedocumented in this encounter Care Teams Data Entry Operator Relationship Specialty Start Date End Date Sima Kaur MD [address] [place], [place] [phone] PCP - General Parachute Folder 05/24/21 documented as of this encounter
--- OUTSIDE RECORDS SUMMARY | 2025-01-03 10:51 | XMS_ITS | Encounter Summary ---
Author Organization [employer] [facility] Address [address] [facility] 7t [place] [address] Care Team Providers Care Materials Manager Name Role Phone Sima Karu MD Primary Care Provider [phone] Encounter Details Date Type Department Care Team (Late st Contact Info) Description 01/10/2023 Abstract [facility] MEDICINE [address] [place] [address] [phone] Sima Kaur MD [address] [place] [address] [phone] Social History Tobacco Use Types Packs/Day Years [...] Description 01/19/2025 3:15 PM EDT Office Visit [facility] MEDICINE [address] [place] [address] [phone] Sima Kaur MD [address] [place] [address] [phone] documented as of this encounter Procedures Procedure [...] ORDERABLES F inal Result Performing Organization Address City/State/[facility] Co de Phone Number [facility] [address], [place] [address] documented in this encounter Visit Diagnoses Not on filedocumented in this encounter Care Teams Materials Manager Relationship Specialty Start Date End Date Sima Kaur MD [address] [place] [address] PCP - General Family Medicine 11/28/20 documented as of this encounter
--- OUTSIDE RECORDS SUMMARY | 2025-01-03 10:51 | XMS_ITS | Clinical Summary ---
Author Organization [facility] Address [address] [place] [address], [place] [address] Care Team Providers Care Hostel Parent Name Role Phone Sima Kaur MD Primary Care Provider [phone] Allergies Active Allergy Reactions Criticality Noted Date [...] 10/23/2024 Refill [facility] [address] [place], [place] [phone] Fazal Ohara MD from Last 3 Months [...] Visit [facility] the [address] [place] [phone] Fazal Ohara MD [address] [facility] [address] [place] [address] Health Maintenance Due Date Last Done [...] % PVNMA 07/12/2020 us Rtama Conversion LAB [id number] LICITED RESULTS Final Result PVNMA from Last 3 Months or Most Recently Relevant to Health Maintenance Insurance [employer] ([id number]) [employer] ([id number]) Care Teams Hostel Parent Relationship Specialty Start Date End Date Sima Kaur MD [facility] [place] [address] PCP - General Racing Secretary 05/24/21
--- OUTSIDE RECORDS SUMMARY | 2025-01-03 10:51 | XMS_ITS | Encounter Summary ---
Author Organization [employer] Address [address] [facility] [address] 7[address] [place] [address] Care Team Providers Care Bottle Sorter Name Role Phone Sima Kaur MD Primary Care Provider [phone] Reason for Visit * Reason Onset Date Comments Results 12/30/2024 Encounter Details Date Type Department Care Team ([facility] st Contact Info) Description 12/30/2024 Telephone [facility] MEDICINE [address] [place], [place] [phone] Sima Kaur MD [address] [place], [place] [phone] Results Social History Tobacco Use Types Packs/Day [...] encounter Miscellaneous Notes * Telephone Encounter - Geovanna Zheng RN - 12/30/2024 2:35 PM EDT Call returned to patient. Advised her that her x-ray showed some abnormalities at the level C4-C5 that could be causing her pain. Advised patient that she was referred to orthopedics. Phone number for [facility] Orthopedics provided to patient. Advised to return call to clinic with any additional questions/ concerns. Patient verbalizes understanding and agreement with plan of care at this time. ---- Message ----- From: Reina Hernandez MD Sent: 12/29/2024 12:49 PM EDT To: [facility] Red Team Nurses Please let Stephanie know x rays showed some abnormalities that could be causing her pain. Please let us know if she does not hear from ortho in a week. Thank you. * Telephone Encounter - Mary Stephen - 12/30/2024 1:08 PM EDT Tc from pt returning phone call. * Telephone Encounter - Andra Drake MA - 12/30/2024 11:00 AM EDT T/c placed returning call regarding xray results. Pt did not answer lvm for pt to cb. documented in this encounter Plan of Treatment Upcoming Encounters Date Type Department Care Team (Late st Contact Info) Description 01/19/2025 3:15 PM EDT Office Visit [facility] MEDICINE [address] [place] [address] Sima Kaur MD [address] [place] [address] documented as of this encounter Visit Diagnoses Not on filedocumented in this encounter Additional Health Concerns Assessment Noted Time PHQ-9 Depression Total Score: 10 024 11:02 AM EDT documented as of this encounter Care Teams Bottle Sorter Relationship Specialty Start Date End Date Sima Kaur MD [address] [place] [address] PCP - General Family Medicine 11/28/20 documented as of this encounter
--- OUTSIDE RECORDS SUMMARY | 2025-01-03 10:51 | XMS_ITS | Clinical Summary ---
Author Organization [employer] Address [address] [place] [address] Care Team Providers Care Plate Setter Name Role Phone Sima Kaur MD Primary Care Provider [phone] Allergies Active Allergy Reactions Criticality Noted Date [...] HEADACHE FOR 7 DAYS Active HYDROcodone-yvette taminophen ([place]) 5-325 MG tablet TAKE 1 TABLET BY [...] complication, without long-term current use of insulin ([facility]) INJECT 1.5 [...] complication, without long-term current use of insulin ([facility]) Inject 3 mg under the skin 1 (one) time per week. 2 mL 6 Active Alcohol Swabs (B-D SINGLE USE SWABS REGULAR) padsIndications :Type 2 diabetes mellitus without complication, without long-term current use of insulin ([facility]) USE 1 SWAB EXTERNALLY TWICE DAILY 100 each 11 025 Active FREESTYLE LITE test stripIndication s:Type 2 diabetes mellitus without complication, without long-term current use of insulin ([facility]) USE 1 [...] complication, without long-term current use of insulin ([facility]) USE 1 [...] Much improved with Emgality Continue followup at [facility] neurology Encouraged wear of CPAP for help with SANTIAGO and BP Assessment & Plan (10/15/2022 11:53 AM EST): Much improved with Emgality Continue followup at [facility] neurology Encouraged wear of CPAP for help with SANTIAGO and BP 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 05/24/2021 Assessment & Plan (06/12/2023 8:48 PM EDT): cont manager call center followup Assessment & Plan (05/09/2023 10:10 AM EDT): Pt has a follow up with manager call center next month Nicotine dependence 05/24/2021 Assessment & [...] of Trulicity secondary to medication availability -called [facility] pharmacy and confirmed Trulicity 1.5 [...] Encounters Date Type Department Care Team Description 12/30/2024 Telephone [facility] MEDICINE [address] [place] [address] Sima Kaur MD Results 12/30/2024 Orders Only GENERIC EXTERNAL DATA DEPARTMENT Provider, Generic External Data 12/29/2024 Telephone [facility] MEDICINE [address] [place] [address] Tiarra Bassett, RACHEL Results 12/28/2024 5:20 PM EDT Office Visit [facility] [address] [place] [address] Reina Hernandez MD Neck pain (Primary Dx); Dermatitis 12/22/2024 Refill [facility] [address] [place] [address] AnkitSelena FNP Essential hypertension 12/14/2024 Refill [facility] MEDICINE [address] [place] [address] Sima Kaur MD Type 2 diabetes mellitus without complication, without long-term current use of insulin (CMS/HCC) 11/25/2024 Telephone [facility] MEDICINE [address] [place] [address] Andra Drake [place] recall 11/16/2024 Orders Only [facility] External Provider, [facility] 11/06/2024 Refill [facility] MEDICINE [address] [place] [address] Sima Kaur MD Type 2 diabetes mellitus without complication, without long-term current use of insulin (CMS/HCC) from Last 3 Months Immunizations Name Administration [...] your housing situation today? I have elizabeth dayana 05/13/[address] you li [...] Description 01/19/2025 3:15 PM EDT Office Visit [facility] MEDICINE [address] [place], [place] [phone] Siam Kaur MD [address] [place] [address] Health Maintenance Due Date Last Done Comments [...] 05/25/2025 05/25/2024 Depression Screening 05/25/2025 05/25/2024, 05/25/20 SDOH Screening 05/25/2025 05/25/2024 Mammogram 07/01/2025 07/01/2024, 02/2023, 03/24/2023, Additional history exists Tobacco Screening 12/28/2025 12/28/2024 Colorectal Cancer Screening 01/17/2028 Postponed from 1955 (Other Medical Reasons) Pap Smear 2028 2023, 06/21, 07/11/2020 Hepatitis B Vaccines Completed 08/18/2018, 02/13/2018, 04/04/2016 Zoster Vaccines Completed 10/31/2021, 02/2021, 08/06/2017 Pneumococcal Vaccine: 50+ Years Completed [...] Procedure Name Priority Date/Time Associated Diagnosis Comments GLUCOSE, WHOLE BLOOD Routine 12/30/2024 8:13 AM EDT XR CERVICAL SPINE 4V Routine 12/29/2024 11:37 [...] Relevant to Health Maintenance Results * (ABNORMAL) Glucose, Whole Blood (12/30/2024 8:13 AM EDT) Glucose, Whole Blood 203(H) 60 - 115 mg/dL [facility] Comment:METER #: [id number] 12/30/2024 8:13 AM EDT 12/30/2024 8:18 AM EDT us Generic External Data Provider LAB BLOOD ORDERAB LES Final Result [facility] [address] [place] [address] [phone] * XR CERVICAL SPINE 4V (12/29/2024 11:37 AM EDT) Anatomical Region Laterality Modality Abdomen Radiographic Bettye ging 12/29/2024 11:3 7 AM EDT Narrative 12/29/2024 12:34 PM EDT ?[facility] ?[address] ?[place] [address] ?XRay Report ? Signed ? Patient: Stephanie Luz ?MR#: MM ?? [id number] ? : 1955 ?Acct:[id number] ? Age/Sex: 69 / F ?ADM Date: 12/29/24 ? Loc: HO.HHCX ? Attending Dr: Reina Hernandez MD ? Ordering Physician: Reina Hernandez MD ?? Date of Service: 12/29/24 ?? Procedure(s): XR cervical spine 4V ?? Accession Number(s): [id number] ? cc: Reina Hernandez MD ? EXAMINATION: [...] DD/ 1137 ? TD/TT: 12/29/24 1200 ? Home Health Care Physician: ? Procedure Note Dondaniellekalipatelter, Image - 12/29/[address] [address] XRay Report Signed Patient: Guillermo Luz#: MM [id number] : 7Acct:[id number] Age/Sex: 69 / FADM Date: 12/29/24 Loc: HO.HHCX Attending Dr: Reina Hernandez MD Ordering Physician: Reina Hernandez MD Date of Service: 12/29/24 Procedure(s): XR cervical spine 4V Accession Number(s): [id number] cc: Reina Hernandez MD EXAMINATION: XR CERVICAL [...] 12/29/24 1231 DD/ 1137 TD/TT: 12/29/24 1200 Home Health Care Physician: us Reina Hernandez MD IMG XR PROCEDURES Final Re sult * FL Esophagus Barium Swallow (11/16/2024 9:13 AM EST) Anatomical Region Laterality Modality Head, Neck Radiographic Bettye ging 11/16/2024 9:13 AM EST Narrative 11/17/2024 8:23 AM EST ? [facility] ?[address] ?[place] [address] ? Fluoroscopy Report ? Signed ? Patient: Sukh,Stephanie ?MR#: MM ?? [id number] ? : 1955 ?Acct:[id number] ? Age/Sex: 69 / F ?ADM Date: 11/16/ ? Loc: HO.XRAY ? Attending Dr: Carey Carson ANP-C ? Ordering Physician: Carey Carson ANP-C ?? Date of Service: 11/16/24 ?? Procedure(s): FL barium swallow ?? Accession Number(s): [id number] ? cc: Carey Carson; Sima Kaur ? [...] 08:21 AM EST RP ? Dictated By: ?Johann Connelly MD ? Signed By: ?<Electronically signed by Johann Connelly MD in OV> ?01/29/25 0821 ? DD/ ? TD/TT: 11/16/2440 ? Home Health Care Physician: MSM ? Procedure Note Nimco Martinez - 11/17/2024 [place] [address] Fluoroscopy Report Signed Patient: Stephanie LuzMR#: [id number] : 1955cct:[id number] Age/Sex: 69 / FADM Date: 11/16/24 Loc: HO.XRAY Attending Dr: Carey TATE Ordering Physician: Carey Carson Date of Service: 11/16/24 Procedure(s): FL barium swallow Accession Number(s): [id number] cc: Carey Carson; Sima Kaur EXAMINATION: XR [...] by: Johann Connelly MD 11/17/2024 08:21 AM [facility] Dictated By: Johann Connelly MD Signed By: <Electronically signed by Johann Connelly MD in OV> 11/17/[address] DD/ TD/TT: 11/16/24 0940 Home Health Care Physician: [facility] Exter nal Provider IMG FLUOROSCOPY PROCEDURES Edited Result - Final * (ABNORMAL) POCT A1C (08/16/2024 9:18 AM EDT) Hemoglobin A1C 7.4(A) 4.0 - 6.0 % QC Media Lot # [id number] Lot# Expiration Date [id number] Blood 08/16/2024 9:18 AM EDT Sima Kaur MD POINT OF CARE TEST ENTER/EDIT ORDERABLES Final Result * BI Mammogram Screening Tomosynthesis Bilateral (07/01/2024 11:30 AM EDT) Anatomical Region Laterality Modality Breast Bilateral Mammography 07/01/2024 11:3 0 AM EDT Narrative 07/14/2024 7:50 PM EDT ? [facility] [place] [facility] ? [address] ?[place] [address] ? Mammography Report ? Signed ? Patient: Sukh,Stephanie ?MR#: MM ?? [id number] ? : 1955 ?Acct:[id number] ? Age/Sex: 69 / F ?ADM Date: 07/01/24 ? Loc: HO.MAMMO ? Attending Dr: Sima Kaur MD ? Ordering Physician: Sima Kaur ?Results: 0Incomple ?? te: Needs Additional Imaging Evaluation ? Date of Service: 07/01/24 ?Follow Up: Additional Imagi ?? ng ? Procedure(s): MM tomosynthesis screening BI ?? Accession Number(s): [id number] ? cc: Sima Kaur ? EXAMINATION: ?? [...] ??Felicia English DO ??07/14/2024 07:47 PM EDT ? Dictated By: ?Felicia English DO ? Signed By: ?<Electronically signed by Felicia English, DO in OV> ? 07/14/241946 ? DD/ 1130 ? TD/TT: 07/01/24 1149 ? Home Health Care Physician: ? Procedure Note Juan, Image - 07/14/2024 [facility] [address] [place] [address] Mammography Report Signed Patient: Guillermo Luz#: MM [id number] : 7Acct:[id number] Age/Sex: 69 / FADM Date: 07/01/24 Loc: HO.MAMMO Attending Dr: Sima Kaur MD Ordering Physician: Kleber Kaurults: 0Incomple te: Needs Additional Imaging Evaluation Date of Service: 07/01/24Follow Up: Additional Imagi ng Procedure(s): MM tomosynthesis screening BI Accession Number(s): [id number] cc: Sima Kaur EXAMINATION: MM SCREENING DIGITAL [...] OV> 07/14/241946 DD/ 1130 TD/TT: 07/01/24 1149 Home Health Care Physician: Sima Kaur MD IMG BI PROCEDURES Edited Resul t - Final * Hepatitis C Antibody with Reflex to HCV, RNA, Quantitative, Real-Time PCR (05/25/2024 11:37 AM EDT) Hepatitis C Antibody Nonreactive Nonreactive [facility] Comment:Antibodies to HCV no t detected; does not exclude early acuteHCV infection. Blood Venous blood specimen / Unknown 05/25/2024 11:37 AM EDT 05/25/2024 1:24 PM EDT Sima Kaur MD LAB BLOOD ORDERABLES Final Res ult [facility] [address] [place] [phone] * (ABNORMAL) Lipid Panel, Standard (11/24/2023 12:45 PM EST) Triglycerides 186(H) <150 mg/dL [facility] Comment:Desirable Triglyceri de: less than 150 mg/dLBorderline High Triglyceride 150-199 mg/dLHigh Triglyceride: 200-499 mg/dLVery High Triglyceride: greater than or equal to 5OO mg/dL Cholesterol 103 <200 mg/dL [facility] Comment:Desirable Cholestero l: less than 200 mg/dLBorderline High Cholesterol: 200-239 mg/dLHigh Cholesterol: greater than 239 mg/dL LDL Cholesterol Calculated 37 <100 mg/dL [facility] Comment:Desirable LDL: less than 100 mg/dLNear Optimal/Above Optimal LDL: 110- 129 mg/dLBorderline High LDL: 130-159 mg/dLHigh LDL: 160-189 mg/dLVery High LDL: greater than or equal to 190 mg/dL HDL Cholesterol 29(L) >40 mg/dL [facility] Comment:Desirable HDL: great er than 40 mg/dL Note: This HDL assay may give artificially low results in patients with liver disease. Blood Venous blood specimen / Unknown 11/24/2023 12:45 PM EST 11/24/2023 1:10 PM EST us Sima Kaur MD LAB BLOOD ORDERABLES Final Res ult [facility] [address] [place] [phone] * HPV mRNA E6/E7 w/Reflex to HPV Genotypes 16, 18/45 (2023 12:00 AM EDT) HPV nRNA E6/E7 Not Detected Not Detected [facility] Comment:Methodology: Transcr iption-Mediated AmplificationThis assay detects E6/E7 viral messenger RNA (mRNA) from 14high-risk HPV types (16,18,31,33,35,39,45,51,52,56,58,59,66,68).Cervical sources are required for HPV testing.If a vaginal source from a patient who has had atotal hysterectomy with removal of cervix wassubmitted, please contact the testing laboratoryfor alternative testing options.For additional information, please refer tohttp://education.GuidePal/faq/SBN019r1(This link if provided for information/educational purposes only.)THIS TEST WAS PERFORMED AT:[employer] [facility] [address] [address]JPJHDTRISTIAN NEWMAN MD HPV mRNA E6/E7 TNP [facility] HPV 16 RNA TNP [facility] HPV 18/45 RNA TNP [facility] 2023 06/16/2023 1:5 0 PM EDT Sima Kaur MD LAB CYTOLOGY ORDERABLES Final Result [facility] [address] [place] [address] [phone] * Pap Smear (2023) 2023 06/16/2023 1:5 0 PM EDT Narrative [facility] - 06/28/2023 2:14 PM EDT ----- ------- Name: Stephanie Luz ? Age/Sex: 68/F ? : 1955 Unit#: [id number] ?? Attend Dr: Sima Kaur ?Re06/13/23 ?Status: DEP REF ? Location: HO.LNP ?Disch: ? ----- ------- SPEC : [id number] ?RECD: 06/16/237 ? STATUS: ??SOUT ? REQ NUM: [id number] ? CAMI: 06/13/23- ? SUBM DR: Sima Kaur ? ENTERED: ??06/16/23 ?SP TYPE: Pap Smr ?OTHR DR: ? ORDERED: ??Pap Smear ? Interpretation ?? Satisfactory for evaluation. ?? Negative for intraepithelial lesion or malignancy. ? HPV mRNA E6/E7: ?NOT DETECTED ? This assay detects E6/E7 viral messenger RNA (mRNA) from 14 high-risk HPV types (16, 18, ?? 31, 33, 35, 39, 45, 51, 52, 56, 58, 59, 66, 68) ? HPV testing performed by [employer] [facility] [facility], [place], [place]. ??See reference laboratory ?? portion of the EMR for entire report. ?Clinical Information LMP:Unknown date Previous PAP test:Unknown date/findings ? Material Received ?? ThinPrep-Vaginal/Cervical ----- ------- Signed (signature on file) Lin Susan Colon 06/28/23 1414 ? ----- ------- ? END OF REPORT ? Sima Kaur MD LAB CYTOLOGY ORDERABLES Final Result [facility] [address] [place] [phone] from Last 3 Months or Most Recently Relevant to Health Maintenance Insurance [facility] Care Teams Plate Setter Relationship Specialty Start Date End Date Sima Kaur MD [address] [place] [phone] PCP - General Family Medicine 11/28/20
--- OUTSIDE RECORDS SUMMARY | 2025-01-03 10:51 | XMS_ITS | Encounter Summary ---
Author Organization [employer] Address [address] [place] [address] Care Team Providers Care Operating Room Assistant Name Role Phone Sima Kaur MD Primary Care Provider [phone] Encounter Details Date Type Department Care Team (Late st Contact Info) Description 12/30/2024 Orders Only GENERIC EXTERNAL DATA DEPARTMENT Provider, Generic External Data Social History Tobacco Use Types Packs/Day Years [...] is your housing situation today? I have elizabethpavan anne 05/13/[address] you [...] Visit [facility] MEDICINE [address] [place] [address] Sima Kaur MD [address] [place] [address] documented as of this encounter Procedures Procedure Name Priority Date/Time Associated Diagnosis Comments GLUCOSE, WHOLE BLOOD Routine 12/30/2024 8:13 AM EDT documented in this encounter Results * (ABNORMAL) Glucose, Whole Blood (12/30/2024 8:13 AM EDT) Glucose, Whole Blood 203(H) 60 - 115 mg/dL [facility] Comment:METER #: [id number] 12/30/2024 8:13 AM EDT 12/30/2024 8:18 AM EDT us Generic External Data Provider LAB BLOOD ORDERAB LES Final Result [facility] [address] [place] [address] [phone] documented in this encounter Visit Diagnoses Not on filedocumented in this encounter Additional Health Concerns Assessment Noted Time PHQ-9 Depression Total Score: 10 024 11:02 AM EDT documented as of this encounter Care Teams Operating Room Assistant Relationship Specialty Start Date End Date Sima Kaur MD [address] [place] [address] PCP - General Family Medicine 11/28/20 documented as of this encounter
--- OUTSIDE RECORDS SUMMARY | 2025-01-03 10:51 | XMS_ITS | Encounter Summary ---
Author Organization [employer] [facility] Address [address] [place] [address] Care Team Providers Care Compression Molding Machine Setter Name Role Phone Sima Kaur MD Primary Care Provider [phone] Reason for Visit * Reason Onset Date Comments Nurse Triage 09/08/2024 ER Follow-up 09/08/2024 Encounter Details Date Type Department Care Team ([facility] st Contact Info) Description 09/08/2024 Telephone [facility] MEDICINE [address] [place], [place] [phone] Sima Kaur MD [address] [place], [place] [phone] Nurse Triage; ER Follow-up Social History Tobacco [...] EST Triage call Pt was seen in [facility] for left ear infection. Pt was prescribed [...] 09/04/24. Pt is advised to come to [facility] today open till 8pm. No available apts [...] ED visit on : Date: 09/04/24 Hospital: [facility] Seen for: Ear infection Pt stated she is having trouble with the medication prescribed. Pt reported following symptoms earache, swollen grands, and coughing Patient advised will forward to triage nurse. Contact pt at [phone] documented in this encounter Plan of Treatment Upcoming Encounters Date Type Department Care Team (Late st Contact Info) Description 01/19/2025 3:15 PM EDT Office Visit [facility] MEDICINE [address] [place] [address] Sima Kaur MD [address] [place] [phone] documented as of this encounter Visit Diagnoses Not on filedocumented in this encounter Additional Health Concerns Assessment Noted Time PHQ-9 Depression Total Score: 10 024 11:02 AM EDT documented as of this encounter Care Teams Compression Molding Machine Setter Relationship Specialty Start Date End Date Sima Kaur MD [address] [place] [address] [phone] PCP - General Family Medicine 11/28/20 documented as of this encounter
--- OUTSIDE RECORDS SUMMARY | 2025-01-03 10:51 | XMS_ITS | Data Portability ---
Author Organization [employer] [facility] [employer] Address [address] [place] [address] Care Team Providers Care Insurance Sales Supervisor Name Role Phone HIM [facility] Primary Care Provider Assessment No assessment recorded. Plan of [...] Name and Address Organization Details Recorded Time 66449 codeine medicatio n Not available Not available Not available 12/27/2024 2670 RxNorm Not Available [employer] production 5 15:30:47 Medications Name Sig [...] mm[Hg] 150 mm[Hg] 80 mm[Hg] Not Available [employer] - Pivot 2 11:44:20 Social History None recorded. Functional [...] Note [address] Redd MD Main - [address] [phone] 03/04/2022 11:17:35 06/25/2022 15:48:58 Acute low back pain [id number] M54.50 Pt p/w gradual worsening of LBP [...] assessment and plan as documented by the inspector quality assurance. I provided real time medical direction for [...] [employer] Member ID Guarantor Name 03/04/2022 1 [facility] - DOS PRIOR TO 2023 - DUAL ELIGIBLE (MEDICARE REPLACEMENT/ADV ANTAGE - HMO) Stephanie Luz [id number] Stephanie Luz Notes Date Note Type Note Provider Name and Address Organization Details Recorded Time 03/04/2022 text/html HPI: Ax: Amoxicillin, clonidine, potassium claluvanate Patient having lower back pain since Thursday 03/01. Radiating to right leg. No urinary sx. taking Tylenol with mild relief. No numbness or known injury to area. .................. .................. .................. .................. .................. .................. .................. ............... Can Striper Note: Chief Complaint back pain Pertinent positive [...] ............... Disposition: Fulfilled Ct Redd MD [address] [facility],[address], [place], [address], [employer] 03/04/2022 12:32:02 OBGyn Episode No OBEpisode recorded.
--- OUTSIDE RECORDS SUMMARY | 2025-01-03 10:51 | XMS_ITS | Encounter Summary ---
Author Organization [employer] Address [address] [place] [address] Care Team Providers Care Degree Clerk Name Role Phone Sima Kaur MD Primary Care Provider [phone] Reason for Visit * Reason Comments Med Refill Encounter Details Date Type Department Care Team (Late st Contact Info) Description 12/14/2024 Refill [facility] MEDICINE [address] [place], [place] [phone] Sima Kaur MD [address] [place], [place] [phone] Type 2 diabetes mellitus without complication, without long-term current use of insulin ([facility]) Social History Tobacco Use Types Packs/Day Years [...] 01/19/2025 3:15 PM EDT Office Visit [facility] MEDICINE [address] [place] [address] Sima Kaur MD [address] [place] [address] documented as of this encounter Visit Diagnoses Diagnosis Type 2 diabetes mellitus without complication, without long-term current use of insulin ([facility]) documented in this encounter Additional Health Concerns Assessment Noted Time PHQ-9 Depression Total Score: 10 024 11:02 AM EDT documented as of this encounter Care Teams Degree Clerk Relationship Specialty Start Date End Date Sima Kaur MD [address] [place] [address] PCP - General Family Medicine 11/28/20 documented as of this encounter
--- OUTSIDE RECORDS SUMMARY | 2025-01-03 10:51 | XMS_ITS | Encounter Summary ---
Author Organization [employer] [facility] Address [address] 7[address] [place] [address] Care Team Providers Care Security Team Lead Name Role Phone Sima Kaur MD Primary Care Provider [phone] Reason for Referral * Consultation (Routine) - Authorized Specialty Diagnoses / Procedures Referred By Jose sweet Referred To Contact Orthopaedic Surgery Diagnoses Neck pain Reina Hernandez MD [address] [place] [phone] Phone: tel: fax: [facility] Orth[facility]ics [address] [place] [address] Phone: tel: Referral ID Status Reason Start Date Expiration Date Visits Requested Visits Authorized [id number] Authorized Specialty Services Required 12/28/2024 12/28/2025 1 1 Reason for Visit * Reason Comments Neck Pain Encounter Details Date Type Department Care Team (Late st Contact Info) Description 12/28/2024 5:20 PM EDT Office Visit [facility] [address] [place] [address] [phone] Reina Hernandez MD [address] [place] [address] [phone] Neck pain (Primary Dx); Dermatitis Social History [...] Description 01/19/2025 3:15 PM EDT Office Visit [facility] MEDICINE [address] [place] [address] Sima Kaur MD [address] [place] [address] Scheduled Referrals Name Type Priority Associated Diagnoses [...] AM EDT Narrative 12/29/2024 12:34 PM EDT ?[facility] ?[address] [facility] ?[place] [address] ?XRay Report ? Signed ? Patient: Sukh,Stephanie ?MR#: MM ?? [id number] ? : 1955 ?Acct:[id number] ? Age/Sex: 69 / F ?ADM Date: 03/12/25 ? Loc: HO.HHCX ? Attending Dr: Reina Hernandez MD ? Ordering Physician: Reina Hernandez MD ?? Date of Service: 12/29/24 ?? Procedure(s): XR cervical spine 4V ?? Accession Number(s): [id number] ? cc: Reina Hernandez MD ? EXAMINATION: [...] DD/ 1137 ? TD/TT: 12/29/24 1200 ? Knitting Demonstrator: ? Procedure Note Juan, Image - 12/29/2024 [facility] [address] [place] [address] XRay Report Signed Patient: Guillermo Luz#: MM [id number] : 7Acct:[id number] Age/Sex: 69 / FADM Date: 12/29/24 Loc: HO.HHCX Attending Dr: Reina Hernandez MD Ordering Physician: Reina Hernandez MD Date of Service: 12/29/24 Procedure(s): XR cervical spine 4V Accession Number(s): [id number] cc: Reina Hernandez MD EXAMINATION: XR CERVICAL [...] 12/29/24 1231 DD/ 1137 TD/TT: 12/29/24 1200 Knitting Demonstrator: Reina Hernandez MD IMG XR PROCEDURES Final Re sult documented in this encounter Visit Diagnoses Diagnosis Neck pain- Primary Cervicalgia Dermatitis Contact dermatitis and other eczema, due to unspecified cause documented in this encounter Additional Health Concerns Assessment Noted Time PHQ-9 Depression Total Score: 10 024 11:02 AM EDT documented as of this encounter Care Teams Security Team Lead Relationship Specialty Start Date End Date Sima Kaur MD [address] [place] [phone] PCP - General Family Medicine 11/28/20 documented as of this encounter
--- OUTSIDE RECORDS SUMMARY | 2025-01-03 10:51 | XMS_ITS | Encounter Summary ---
Author Organization [facility] Address [address] [facility] [address] [place] [address] Phone Care Team Providers Care Pipe Insulator Helper Name Role Phone Sima Kaur MD Primary Care Provider + [phone] Reason for Visit * Reason Comments Med Refill Encounter Details Date Type Department Care Team (Late Contact Info) Description 06/03/2022 Refill [facility] [address] [facility] [address] [place] [phone] Chester Alves MD [address] [address] Social History Tobacco Use Types [...] Visit [facility] [address] [place] [phone] Fazal Ohara MD [address] [address] documented as of this encounter Visit Diagnoses Not on filedocumented in this encounter Care Teams Pipe Insulator Helper Relationship Specialty Start Date End Date Sima Kaur MD [address] [place] [address] PCP - General Vp Lab 05/24/21 documented as of this encounter
--- OUTSIDE RECORDS SUMMARY | 2025-01-03 10:51 | XMS_ITS | Encounter Summary ---
Author Organization [facility] Address [address] [facility] [address] [place] [address] Phone Care Team Providers Care Water Sander Name Role Phone Sima Kaur MD Primary Care Provider + [phone] Reason for Visit * Reason Comments Med Refill Encounter Details Date Type Department Care Team (Late Contact Info) Description 06/11/2023 [facility]ill [facility] [address] [place] [phone] [...] Upcoming Encounters Date Type Department Care Team ([facility] Contact Info) Description 07/04/2025 1:00 PM EDT Office Visit [facility] [address] [place] [phone] Fazal Ohara MD [address] [facility] [address] [place] [address] documented as of this encounter Visit Diagnoses Not on filedocumented in this encounter Care Teams Water Sander Relationship Specialty Start Date End Date Sima Kaur MD [address] [place], [place] [phone] PCP - General Senior Analyst Market Intelligence 05/24/21 documented as of this encounter
== END 2025-01-03 10:43 | disposition home or self-care (01) ==
LOC: HO.HCS 09:51
PROVIDERS: PCP General Practice; Visit Provider Nurse Practitioner Family
DX: R94.31 Abnormal electrocardiogram [ECG] [EKG] (principal); I10 Essential (primary) hypertension; E78.00 Pure hypercholesterolemia, unspecified; G47.33 Obstructive sleep apnea (adult) (pediatric); E11.9 Type 2 diabetes mellitus without complications
CPT/HCPCS: 93010; 99214; G2211

== ENCOUNTER → 2025-01-03 09:50 | Outpatient (BNVA) | payer OTHER, SELFPAY | PROVIDERS: PCP General Practice; Visit Provider Nurse Practitioner Family | DX: R94.31 Abnormal electrocardiogram [ECG] [EKG] (principal); I10 Essential (primary) hypertension; G47.33 Obstructive sleep apnea (adult) (pediatric); E78.00 Pure hypercholesterolemia, unspecified; E11.9 Type 2 diabetes mellitus without complications | CPT/HCPCS: 93005; 99212 ==

== ENCOUNTER 2025-01-13 11:53 | Outpatient (REF) | payer OTHER, SELFPAY ==
[2025-01-17 23:54] LABS: Transglutaminase Ab IgG 2.1 U/mL
== END 2025-01-13 11:54 | disposition home or self-care (01) ==
LOC: HO.LAB 11:53
PROVIDERS: PCP General Practice; Visit Provider Nurse Practitioner
DX: K21.9 Gastro-esophageal reflux disease without esophagitis (principal); K90.0 Celiac disease; R11.2 Nausea with vomiting, unspecified
CPT/HCPCS: 36415; 86364; 99212

== ENCOUNTER 2025-01-13 11:53 | Outpatient (AMB) | payer OTHER, SELFPAY ==
--- NOTE | 2025-01-13 11:58 | A.OFFVIS_ITS ---
Vital Signs 01/13/25 12:03 Height 5 ft 1 in Weight 150 lb 12.739 oz BMI 28.5 BP 119/78 Blood Pressure Location Rt brachial Position Sitting Pulse 68 Pulse Oximetry (%) 97 Intake Visit Reasons: s/p EGD Ayaan Intake Note: Patient in office today in follow up s/p EGD. CC: Patient reports nausea and vomiting since after EGD. She is eating soups and cracker, because when she eats something else it upset her stomach. She also c/o epigastric pain. Inspector Technician Required: No Allergies codeine Adverse Reaction (Intermediate, Verified 01/13/25 12:05) vertigo, nausea HPI HPI s/p EGD Ayaan: Details: Assessment & Plan (1) Celiac disease: Code(s): K90.0 - Celiac disease Category: Medical (2) GERD (gastroesophageal reflux disease): Comment: Resolved with celiac diet Code(s): K21.9 - Gastro-esophageal reflux disease without esophagitis Category: Medical (3) Chronic idiopathic constipation: Comment: Resolve when she follows her celiac diet Code(s): K59.04 - Chronic idiopathic constipation Category: Medical (4) Dysphagia: Code(s): R13.10 - Dysphagia, unspecified Category: Medical Plan She has changed her seasoning and is trying to buy only gluten free things and is doing better. Has not needed Linzess as is moving her bowels well and has less bloating. Pain is improved. She still have occasional feelings of incomplete evacuation and I suggest that we use senna instead of Linzess since that caused her severe diarrhea when she used it subsequent to changing her celiac diet. She continues on her Colace. She also continues on her famotidine. ROV after barium swallow. New sennosides (Senna Laxative) 17.2 mg (2 x 8.6 mg) PO BEDTIME PRN 60 tabs 6RF constipation Refilled famotidine (Pepcid) 40 mg PO BEDTIME 30 tabs 6RF K21.9 - Gastro-esophageal reflux disease without esophagitis docusate sodium 100 mg PO BID PRN 60 caps 6RF Constipation Discontinued linaclotide (Linzess) Discontinued Reason: Doctor's Order 72 mcg PO QAM 30 caps 6RF K59.04 - Chronic idiopathic constipation bisacodyl (Dulcolax (bisacodyl)) Discontinued Reason: Doctor's Order 10 mg (2 x 5 mg) PO BEDTIME 30 days 60 tabs 6RF K59.04 - Chronic idiopathic constipation XR ABD 10/29/24 FINDINGS: The bowel gas pattern is within normal limits, with no evidence of ileus or obstruction. Redemonstrated is surgical clips in the right upper quadrant from prior cholecystectomy. Lung bases are clear. No suspicious bony lesion seen. . XR/XR abdomen w decubitus IMPRESSION: Nonobstructive bowel gas pattern. BARIUM SWALLOW 11/17/24 FINDINGS: Following oral administration of thick barium in upright view there is normal perfusion bolus from the oral cavity through the pharynx, esophagus into stomach without obstruction, narrowing or extrinsic compression. No laryngeal penetration or aspiration seen. There is a ventral plate and screw at C5-6 disc level for fusion. On placing patient prone oblique and oral administration of thick barium there is normal and the great flow seen through the entire esophagus without any obstruction or narrowing. There is no gastroesophageal reflux seen in lying supine view. FLUOROSCOPY TIME: 1 minute 46 seconds DOSE AREA PRODUCT: 656.9 uGy-m2 (microgray-meter squared) FL/FL barium swallow IMPRESSION: Unremarkable barium swallow examination an upright and lying position. EGD EGD Findings:? * Esophagus:? Normal mucosa noted in the entire esophagus. The Z line was at 38 cm. Middle and lower esophagus forceps biopsies were obtained to rule out eosinophilic esophagitis. * Stomach:? Mild erythema noted in antrum. A small polyp was noted just below GE junction visible in anterograde view. Cold forceps polypectomy was performed. Retroflexion was performed in the cardia. Random cold forceps gastric biopsies were taken to rule out H Pylori infection. * Duodenum:? Normal mucosa was noted in the whole of the examined duodenum. Cold forceps biopsies were taken from duodenal bulb and second portion of the duodenum to rule out celiac sprue. Additional intervention: Soft tip Savary wire was introduced through the biopsy channel of the gastroscope and advanced to the antrum. ?The gastroscope was then backed out. ?Savary Zaida bougie was advanced over the guidewire and the esophagus was dilated to 19 with resistance felt. ?On relook, no heme or tear was noted. ? ? EGD Impressions:? * Normal esophagus (biopsy, dilation) * Gastritis * Normal duodenum (biopsy)?? Recommendations:?? * Follow biopsy results. Our office will call or send a letter with results within 7-10 days. * Avoid NSAIDs. * If there is improvement in dysphagia, EGD with dilation can be repeated as needed for recurrence of symptoms. BIOPSY Received: 12/30/24 Diagnosis A. Duodenum, 2nd portion, biopsy: Duodenal mucosa with mildly increased intraepithelial lymphocytes and focal partial villous blunting. See comment. B. Duodenum, bulb, biopsy: Duodenal mucosa with Vincent gland hyperplasia and focal partial villous blunting. C. Esophagus, lower, biopsy: Focal parakeratosis; otherwise squamous epithelium within normal limits; no inflammation seen. D. Esophagus, middle, biopsy: Squamous epithelium within normal limits; no inflammation seen. E. Stomach, polyp, biopsy: - Fundic gland polyp with background mild chronic inactive inflammation; no Helicobacter organisms seen. - Squamocolumnar mucosa with moderate chronic active inflammation; no intestinal metaplasia identified. COMMENT: The findings in the duodenum are non-specific. The differential diagnosis is broad and includes infection (e.g. viral or H. pylori), medication/drugs (e.g. NSAIDs), gluten sensitivity/celiac disease, bacterial overgrowth, tropical sprue, immunodeficiency syndromes (e.g. IgA deficiency, CVID), autoimmune enteropathy, Crohns and collagen vascular disease, among others. Please correlate with clinical and other laboratory findings CORRESPONDENCE On 08/31/24 @ 11:46 Angelina Mendiola Wrote To Alli[employer]y spoke w/ patient. patient reports she does eat meat, reports she eats chicken wings, ribs, steak and she boils them. patient does not trevino them. no pasta (other than x1 a month) - no other sources of gluten that she is aware of On 08/31/24 @ 10:48 Carey Carson Wrote To Angelina Mendiola Please call and tonight and explained to her that it appears her celiac is not well controlled. Either she is eating too much meats and pasta that is causing her problem or she has sources of gluten that she has not considered in her diet. TODAY'S VISIT She has been having N/V since the EGD with epigastric pain. She aslo is not moving her bowels well on inzess 72mcg, so we will progress to 145mcg. Also adding omeprazole to the famotidine to help calm her stomach. She claims she has been doing her best follows celiac diet but she is concerned about the blunting discovered on biopsy and whether or not there could be hidden sources of gluten sneaking into her diet. To try to help her answer this question we will repeat her TTE GA. Return office visit next available [facility] Medical History Bleeding hemorrhoids Nausea Epigastric pain Hand pain, right Chronic migraine without aura Carpal tunnel syndrome of left wrist Pain of left thumb Numbness and tingling in left hand Carpal tunnel syndrome of right wrist Right arm numbness Arthritis of right shoulder region GERD (gastroesophageal reflux disease) Spondylosis of lumbar spine Diabetes High cholesterol HTN (hypertension) Back pain, chronic Migraines Surgical History S/P carpal tunnel release History of fusion of cervical spine History of carpal tunnel release History of hemorrhoidectomy (~04/01/23) History of esophagogastroduodenoscopy (EGD) Hx of fusion of cervical spine Hx of colonoscopy Hx of cholecystectomy Hx of tubal ligation Family History Father History of heart attack Mother Hx of type 1 diabetes mellitus Family history of high blood pressure Social History Alcohol intake: never Patient Tobacco Use Status: Current everyday Tobacco user Tobacco use type: Cigarette Cigarette Packs Per Day: 0.5 Cigarettes Per Day: 10 Years Smoked: 45 Current occupational status: employed 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 [employer] Review of Systems Const Denies fatigue, Denies fever(s), Denies night sweats, Denies poor appetite and Denies weight loss ENT Reports Normal hearing present, Denies dental pain, Denies dysphagia, Denies hearing loss, Denies mouth pain, Denies odynophagia, Denies throat swelling, Denies tongue swelling and Reports other (Dentition adequate) Card Reports no additional complaints Resp Reports no additional complaints GI Details: Denies abdominal pain, Denies melena, Reports bloating, Denies hematochezia, Reports constipation, Denies GI cramping, Denies dysphagia, Denies excessive flatus, Denies early satiety, Reports heartburn, Denies diarrhea, Reports nausea, Denies odynophagia, Reports vomiting and Denies hematemesis Skin/Breast Denies pruritus, Denies lesions, Denies rash and Denies jaundice Neuro Reports Normal hearing present and Denies Abnormal speech present Endo Denies fatigue Aller/Immun Denies throat swelling and Denies tongue swelling Physical Exam Vital Signs: Last Vital Signs Pulse 68 01/13/25 12:03 BP 119/78 01/13/25 12:03 Pulse Ox 97 01/13/25 12:03 BMI result Body Mass Index 28.5 Const General: cooperative, no acute distress, well developed and well groomed Nutritional Appearance: well nourished and overweight Orientation/consciousness: oriented to person, oriented to place and oriented to time Limitations: No language barrier HEENT Head: Yes normocephalic and Yes atraumatic Eyes General: appearance normal, both eyes and all related structures Pupils: Equal, round and reactive pupils present Neck Neck: Yes normal visual inspection and Yes no lymphadenopathy Thyroid: Thyroid normal Resp Effort & Inspection: normal respiratory effort and able to speak in complete sentences Auscultation: clear to auscultation bilaterally Cardio Rate: regular rate Rhythm: regular rhythm Heart sounds: Normal, physiologic split S2 sound present Peripheral pulses: radial pulses present and posterior tibial pulses present GI Inspection: Yes distended, No Abdominal panniculus present and Yes obesity Palpation (GI): Soft to palpation, Tenderness to palpation present (GI) in the epigastrum, no guarding, not rigid and No hepatosplenomegaly present Percussion: Yes normal to percussion Auscultation: normal bowel sounds Rectal Exam - Female: deferred Skin General skin exam: no rashes or lesions noted, turgor normal, skin not dry, no jaundice, No spider nevi and no striae Rashes: no rashes Nails: normal Neuro General: oriented to person, oriented to place and oriented to time Cranial nerves: Yes Equal, round and reactive pupils present and Yes Normal hearing present Speech: No Abnormal speech present Extrem General: Yes normal to inspection, No clubbing, No cyanosis and No edema Psych Appearance: grossly normal and well kempt Mental Status: mental status grossly normal Speech and movement: Normal speech and movement present Affect: normal affect Attitude: cooperative Thought process: Normal thought process present and not confabulating Thought content: Normal thought content present Insight: Limited insight present (Psych) Judgement: Limited judgement present (Psych) Results Reviewed Results Reviewed: XR ABD 10/29/24 FINDINGS: The bowel gas pattern is within normal limits, with no evidence of ileus or obstruction. Redemonstrated is surgical clips in the right upper quadrant from prior cholecystectomy. Lung bases are clear. No suspicious bony lesion seen. . XR/XR abdomen w decubitus IMPRESSION: Nonobstructive bowel gas pattern. BARIUM SWALLOW 11/17/24 FINDINGS: Following oral administration of thick barium in upright view there is normal perfusion bolus from the oral cavity through the pharynx, esophagus into stomach without obstruction, narrowing or extrinsic compression. No laryngeal penetration or aspiration seen. There is a ventral plate and screw at C5-6 disc level for fusion. On placing patient prone oblique and oral administration of thick barium there is normal and the great flow seen through the entire esophagus without any obstruction or narrowing. There is no gastroesophageal reflux seen in lying supine view. FLUOROSCOPY TIME: 1 minute 46 seconds DOSE AREA PRODUCT: 656.9 uGy-m2 (microgray-meter squared) FL/FL barium swallow IMPRESSION: Unremarkable barium swallow examination an upright and lying position. EGD EGD Findings:? * Esophagus:? Normal mucosa noted in the entire esophagus. The Z line was at 38 cm. Middle and lower esophagus forceps biopsies were obtained to rule out eosinophilic esophagitis. * Stomach:? Mild erythema noted in antrum. A small polyp was noted just below GE junction visible in anterograde view. Cold forceps polypectomy was performed. Retroflexion was performed in the cardia. Random cold forceps gastric biopsies were taken to rule out H Pylori infection. * Duodenum:? Normal mucosa was noted in the whole of the examined duodenum. Cold forceps biopsies were taken from duodenal bulb and second portion of the duodenum to rule out celiac sprue. Additional intervention: Soft tip Savary wire was introduced through the biopsy channel of the gastroscope and advanced to the antrum. ?The gastroscope was then backed out. ?Savary Zaida bougie was advanced over the guidewire and the esophagus was dilated to 19 with resistance felt. ?On relook, no heme or tear was noted. ? ? EGD Impressions:? * Normal esophagus (biopsy, dilation) * Gastritis * Normal duodenum (biopsy)?? Recommendations:?? * Follow biopsy results. Our office will call or send a letter with results within 7-10 days. * Avoid NSAIDs. * If there is improvement in dysphagia, EGD with dilation can be repeated as needed for recurrence of symptoms. BIOPSY Received: 12/30/24 Diagnosis A. Duodenum, 2nd portion, biopsy: Duodenal mucosa with mildly increased intraepi thelial lymphocytes and focal partial villous blunting. See comment. B. Duodenum, bulb, biopsy: Duodenal mucosa with Vincent gland hyperplasia and focal partial villous blunting. C. Esophagus, lower, biopsy: Focal parakeratosis; otherwise squamous epithelium within normal limits; no inflammation seen. D. Esophagus, middle, biopsy: Squamous epithelium within normal limits; no inflammation seen. E. Stomach, polyp, biopsy: - Fundic gland polyp with background mild chronic inactive inflammation; no Helicobacter organisms seen. - Squamocolumnar mucosa with moderate chronic active inflammation; no intestinal metaplasia identified. COMMENT: The findings in the duodenum are non-specific. The differential diagnosis is broad and includes infection (e.g. viral or H. pylori), medication/drugs (e.g. NSAIDs), gluten sensitivity/celiac disease, bacterial overgrowth, tropical sprue, immunodeficiency syndromes (e.g. IgA deficiency, CVID), autoimmune enteropathy, Crohns and collagen vascular disease, among others. Please correlate with clinical and other laboratory findings Assessment & Plan Assessment & Plan (1) GERD (gastroesophageal reflux disease): Comment: Resolved with celiac diet Code(s): K21.9 - Gastro-esophageal reflux disease without esophagitis Category: Medical (2) Celiac disease: Code(s): K90.0 - Celiac disease Category: Medical (3) Nausea and vomiting: Code(s): R11.2 - Nausea with vomiting, unspecified Category: Medical (4) Chronic idiopathic constipation: Code(s): K59.04 - Chronic idiopathic constipation Category: Medical Plan She has been having N/V since the EGD with epigastric pain. She aslo is not moving her bowels well on inzess 72mcg, so we will progress to 145mcg. Also a dding omeprazole to the famotidine to help calm her stomach. She claims she has been doing her best follows celiac diet but she is concerned about the blunting discovered on biopsy and whether or not there could be hidden sources of gluten sneaking into her diet. To try to help her answer this question we will repeat her TTE GA. Return office visit next available Orders: Orders Transglutaminase Ab IgG Today K90.0 - Celiac disease, R11.2 - Nausea with vomiting, unspecified Medications: New linaclotide (Linzess) Take first thing in the morning with a full glass of water. 145 mcg PO QAM 30 caps 6RF K58.1 - Irritable bowel syndrome with constipation omeprazole 20 mg PO .qamac 30 caps 3RF 30 days K21.9 - Gastro-esophageal reflux disease without esophagitis Coding Level of Care Code Est Pt Level 4 (19114) Diagnoses GERD (gastroesophageal reflux disease) K21.9 Celiac disease K90.0 Nausea and vomiting R11.2 Chronic idiopathic constipation K59.04 Time Spent (min) 33
[2025-01-13 12:03] VITALS: BP 119/78; PULSE 68; O2SAT 97; BMI 28.5
--- OUTSIDE RECORDS SUMMARY | 2025-01-13 15:23 | XMS_ITS | Data Portability ---
Author Organization [facility] Address [address] [place] [address] Care Team Providers Care Dairy Farm Operator Name Role Phone HIM [facility] OTHER [facility] Primary Care Provider Assessment No assessment [...] Name and Address Organization Details Recorded Time 08542 codeine medicatio n Not available Not available Not available 12/27/2024 2670 RxNorm Not Available [facility] - production 5 15:30:47 Medications Name Sig [...] mm[Hg] 150 mm[Hg] 80 mm[Hg] Not Available [facility] - [employer] 2 11:44:20 Social History None recorded. Functional [...] Note [address] Ct Redd MD Main - [address] [phone] 03/04/2022 11:17:35 06/25/2022 15:48:58 Acute low back pain [id number] M54.50 Pt p/w gradual worsening of LBP [...] assessment and plan as documented by the site supervisor. I provided real time medical direction for [...] Quinteros Member ID Guarantor Name 03/04/2022 1 [facility] - DOS PRIOR TO 2023 - DUAL ELIGIBLE (MEDICARE REPLACEMENT/ADV ANTAGE - HMO) Stephanie Luz [id number] Stephanie Luz Notes Date Note Type Note Provider Name and Address Organization Details Recorded Time 03/04/2022 text/html HPI: Ax: Amoxicillin, clonidine, potassium claluvanate Patient having lower back pain since Thursday 03/01. Radiating to right leg. No urinary sx. taking Tylenol with mild relief. No numbness or known injury to area. .................. .................. .................. .................. .................. .................. .................. ............... Motion Picture Set Worker Note: Chief Complaint back pain Pertinent positive [...] ............... Disposition: Fulfilled Ct Redd MD [address] [facility],[address], [place], [address], [facility] 03/04/2022 12:32:02 OBGyn Episode No OBEpisode recorded.
--- OUTSIDE RECORDS SUMMARY | 2025-01-13 15:23 | XMS_ITS | Encounter Summary ---
Author Organization [facility] Address [address] [facility] [address] [place] [address] Care Team Providers Care Farmworker Poultry Name Role Phone Sima Kaur MD Primary Care Provider [phone] Reason for Referral * Consultation (Routine) - Authorized Specialty Diagnoses / Procedures Referred By Jose sweet Referred To Contact Orthopaedic Surgery Diagnoses Neck pain Reina Hernandez MD [address] [place] [phone] Phone: tel: fax: [facility] [address] [place] [address] Phone: tel: Referral ID Status Reason Start Date Expiration Date Visits Requested Visits Authorized [id number] Authorized Specialty Services Required 12/28/2024 12/28/2025 1 1 Reason for Visit * Reason Comments Neck Pain Encounter Details Date Type Department Care Team (Late st Contact Info) Description 12/28/2024 5:20 PM EDT Office Visit [facility] [address] [place] [address] [phone] Reina Hernandez MD [address] [place] [address] [phone] Neck pain (Primary Dx); Dermatitis Social History [...] 01/19/2025 3:15 PM EDT Office Visit [facility] [address] [place] [address] Sima Kaur MD [address] [place] [address] Scheduled Referrals Name Type Priority Associated Diagnoses [...] AM EDT Narrative 12/29/2024 12:34 PM EDT ?[facility] ?[address] [facility]. ?[place] [address] ?XRay Report ? Signed ? Patient: Sukh,Stephanie ?MR#: [id number] ?? [id number] ? : 1955 ?Acct:[id number] ? Age/Sex: 69 / F ?ADM Date: 03/12/25 ? Loc: HO.HHCX ? Attending Dr: Reina Hernandez MD ? Ordering Physician: Reina Hernandez MD ?? Date of Service: 12/29/24 ?? Procedure(s): XR cervical spine 4V ?? Accession Number(s): [id number] ? cc: Reina Hernandez MD ? EXAMINATION: [...] DD/ 1137 ? TD/TT: 12/29/24 1200 ? Human Resource Advisor: ? Procedure Note Juan, Image - 12/29/2024 [facility] [address] [place] [address] XRay Report Signed Patient: Guillermo Luz#: [id number] : 7Acct:[id number] Age/Sex: 69 / FADM Date: 12/29/24 Loc: HO.HHCX Attending Dr: Reina Hernandez MD Ordering Physician: Reina Hernandez MD Date of Service: 12/29/24 Procedure(s): XR cervical spine 4V Accession Number(s): [id number] cc: Reina Hernandez MD EXAMINATION: XR CERVICAL [...] 12/29/24 1231 DD/ 1137 TD/TT: 12/29/24 1200 Human Resource Advisor: Reina Hernandez MD IMG XR PROCEDURES Final Re sult documented in this encounter Visit Diagnoses Diagnosis Neck pain- Primary Cervicalgia Dermatitis Contact dermatitis and other eczema, due to unspecified cause documented in this encounter Additional Health Concerns Assessment Noted Time PHQ-9 Depression Total Score: 10 024 11:02 AM EDT documented as of this encounter Care Teams Farmworker Poultry Relationship Specialty Start Date End Date Sima Kaur MD [address] [place] [phone] PCP - General Family Medicine 11/28/20 documented as of this encounter
--- OUTSIDE RECORDS SUMMARY | 2025-01-13 15:23 | XMS_ITS | Encounter Summary ---
Author Organization [employer] Address [address] [place] [address] Care Team Providers Care Vault Attendant Name Role Phone Sima Kaur MD Primary Care Provider [phone] Reason for Visit * Reason Comments Med Refill Encounter Details Date Type Department Care Team (Late st Contact Info) Description 12/22/2024 Refill [facility] [address] [place], [place] [phone] [facility] [address] [place], [place] [phone] Essential hypertension Social History Tobacco Use Types [...] 01/19/2025 3:15 PM EDT Office Visit [facility] [address] [place] [address] Sima Kaur MD [address] [place] [address] documented as of this encounter Visit Diagnoses Diagnosis Essential hypertension Unspecified essential hypertension documented in this encounter Additional Health Concerns Assessment Noted Time PHQ-9 Depression Total Score: 10 024 11:02 AM EDT documented as of this encounter Care Teams Vault Attendant Relationship Specialty Start Date End Date Sima Kaur MD [address] [place] [address] PCP - General Family Medicine 11/28/20 documented as of this encounter
--- OUTSIDE RECORDS SUMMARY | 2025-01-13 15:23 | XMS_ITS | Clinical Summary ---
Author Organization [employer] Address [address] [place] [address] Care Team Providers Care Conference Specialist Name Role Phone Sima Kaur MD Primary Care Provider [phone] Allergies Active Allergy Reactions Criticality Noted Date [...] HEADACHE FOR 7 DAYS Active HYDROcodone-yvette taminophen ([place]) 5-325 MG tablet TAKE 1 TABLET BY [...] complication, without long-term current use of insulin ([facility]) INJECT [...] complication, without long-term current use of insulin ([facility]) Inject 3 mg under the skin 1 (one) time per week. 2 mL 6 Active Alcohol Swabs (B-D SINGLE USE SWABS REGULAR) padsIndications :Type 2 diabetes mellitus without complication, without long-term current use of insulin ([facility]) USE 1 SWAB EXTERNALLY TWICE DAILY 100 each 11 025 Active FREESTYLE LITE test stripIndication s:Type 2 diabetes mellitus without complication, without long-term current use of insulin ([facility]) USE [...] complication, without long-term current use of insulin ([facility]) USE [...] Much improved with Emgality Continue followup at [facility] Encouraged wear of CPAP for help with SANTIAGO and BP Assessment & Plan (10/15/2022 11:53 AM EST): Much improved with Emgality Continue followup at [facility] Encouraged wear of CPAP for help with SANTIAGO and BP 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 05/24/2021 Assessment & Plan (06/12/2023 8:48 PM EDT): 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 Assessment & Plan (05/09/2023 10:10 AM EDT): 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 Nicotine dependence 05/24/2021 Assessment & [...] of Trulicity secondary to medication availability -called [facility] pharmacy and confirmed Trulicity 1.5 [...] Encounters Date Type Department Care Team Description 01/10/2025 Patient Outreach [facility] [address] [place] [phone] Sima Kaur MD Pre-visit Planning (SDOH screening negative and tobacco screening negative) 12/30/[address] [address] Sima Kaur MD Results 12/30/2024 Orders Only GENERIC EXTERNAL DATA DEPARTMENT Provider, Generic External Data 12/29/[address] [address] Tiarra Bassett, RACHEL Results 12/28/2024 5:20 PM EDT Office Visit [facility] [address] [place] [address] Reina Hernandez MD Neck pain (Primary Dx); Dermatitis 12/22/2024 Refill [facility] [address] [place] [address] FairfieldSelena FNP Essential hypertension 12/14/2024 Refill [facility] [address] [place] [address] Sima Kaur MD Type 2 diabetes mellitus without complication, without long-term current use of insulin ([facility]) 11/25/2024 Telephone [facility] [address] [place] [address] Andra Drake [place] recall 11/16/2024 Orders Only [facility] External Provider, [facility] 11/06/2024 Refill [facility] [address] [place] [address] Sima Kaur MD Type 2 diabetes mellitus without complication, without long-term current use of insulin ([facility]) from Last [...] from getting things needed for daily living? No 01/10/2025 Utilities Answer Date Recorded In the past [...] Description 01/19/2025 3:15 PM EDT Office Visit [facility] [address] [place] [address] Sima Kaur MD [address] [place] [address] Health Maintenance Due Date Last Done Comments [...] 05/25/2024 Depression Screening 05/25/2025 05/25/2024, 05/25/20 24 Mammogram 07/01/2025 07/01/2024, 02/2023, 03/24/2023, Additional history exists Tobacco Screening 12/28/2025 12/28/2024 SDOH Screening 01/10/2026 01/10/2025 Colorectal Cancer Screening 01/17/2028 Postponed from 1955 (Other Medical Reasons) Pap Smear 2028 2023, 06/21, 07/11/2020 Hepatitis B Vaccines Completed 08/18/2018, 02/13/2018, 04/04/2016 Zoster Vaccines Completed 10/31/2021, 11/0 02/2021, 08/06/2017 Pneumococcal Vaccine: 50+ Years Completed [...] Procedure Name Priority Date/Time Associated Diagnosis Comments HEMATOXYLIN AND EOSIN STAIN Routine 12/30/2024 10:58 AM EDT GLUCOSE, WHOLE BLOOD Routine 12/30/2024 8:13 AM [...] Recently Relevant to Health Maintenance Results * Hematoxylin and Eosin Stain (12/30/2024 10:58 AM EDT) 12/30/2024 10:5 8 AM EDT 12/30/2024 12:00 PM EDT [facility] - 01/03/2025 1:42 PM EDT ----- ------- Name: Stephanie Luz ? Age/Sex: 69/F ? : 1955 Unit#: [id number] ?? Attend Dr: Johanna Kuo MD ?Re12/30/24 ?Status: DEP [facility] ? Location: HO.SSS ?Disch: ? ----- ------- SPEC : [id number] ? RECD: 12/30/24-1200 ? STATUS: ??SOUT ? REQ NUM: [id number] ? CAMI: 12/30/24-1058 ? SUBM DR: Johanna Kuo MD ? ENTERED: ??12/30/24-1225 ?SP TYPE: Surgical ? OTHR DR: Sima Kaur ? ORDERED: ??HE Stain/15, Gross Micro L4/5, IHC, Special st. 2/3, H. pylori, AB/PAS/3 ? Diagnosis ?? A. ??Duodenum, 2nd portion, biopsy: ??Duodenal mucosa with mildly increased intraepithelial ?? lymphocytes and focal partial villous blunting. ??See comment. ? B. ??Duodenum, bulb, biopsy: ??Duodenal mucosa with Vincent gland hyperplasia and focal ?? partial villous blunting. ? C. ??Esophagus, lower, biopsy: ??Focal parakeratosis; otherwise squamous epithelium within ?? normal limits; no inflammation seen. ? D. ??Esophagus, middle, biopsy: ??Squamous epithelium within normal limits; no inflammation ?? seen. ? E. ??Stomach, polyp, biopsy: ?- Fundic gland polyp with background mild chronic inactive inflammation; no ?? Helicobacter organisms seen. ?- Squamocolumnar mucosa with moderate chronic active inflammation; no intestinal ?? metaplasia identified. ? COMMENT: The findings in the duodenum are non-specific. ??The differential diagnosis is ?? broad and includes infection (e.g. viral or H. pylori), medication/drugs (e.g. NSAIDs), ?? gluten sensitivity/celiac disease, bacterial overgrowth, tropical sprue, immunodeficiency ?? syndromes (e.g. IgA deficiency, CVID), autoimmune enteropathy, Crohns and collagen ?? vascular disease, among others. ??Please correlate with clinical and other laboratory ?? findings. ?Clinical History Pre-Op Dx: ??Dysphagia, celiac Post-Op Dx: Gastritis, gastric polyp ?Microscopic Description A-E. ??Microscopic sections examined. ??Foveolar metaplasia is present in A and no metaplastic changes are seen in B and E supported by AB/PAS stains; no Helicobacter organisms are seen, supported by H. pylori immunostain (E). ? Material Received ?? A. Second portion duodenal bx's ?? B. Duodenal bulb bx's ?? C. Lower esophagus bx's ?? D. Middle esophagus bx's ? CONTINUED ON NEXT PAGE ----- ------- Name: Stephanie Luz ? Age/Sex: 69/F ? : 1955 Unit#: [id number] ?? Attend Dr: Johanna Kuo MD ?Re12/30/24 ?Status: DEP SDC ? Location: HO.SSS ?Disch: ? ----- ------- SPEC : [id number] ? RECD: 12/30/24-1200 ? STATUS: ??SOUT ? REQ NUM: [id number] ? CAMI: 12/30/24-1058 ? SUBM DR: Johanna Kuo MD ? ENTERED: ??12/30/24-1225 ?SP TYPE: Surgical ? OTHR DR: Sima Kaur ? ORDERED: ??HE Stain/15, Gross Micro L4/5, IHC, Special st. 2/3, H. pylori, AB/PAS/3 ? Material Received ?(Continued) ?? E. Gastric polyp bx's ? Gross Description Received in five parts. Part A: ??Received in formalin labeled 2nd portion duodenal biopsies? are 4 gibson-pink irregular tissue fragments ranging from 0.25-0.35 cm, submitted in toto in a cassette labeled A. Part B: ??Received in formalin labeled ?duodenal bulb biopsies? are 4 gibson irregular tissue fragments ranging from 0.2-0.25 cm, submitted in toto in a cassette labeled B. Part C: ??Received in formalin labeled ?lower esophagus biopsies? are 3 lucas-white irregular tissue fragments each measuring 0.3 cm, submitted in toto in a cassette labeled C. Part D: ??Received in formalin labeled ?middle esophagus biopsies are 4 lucas-white irregular and rectangular tissue fragments ranging 0.2-0.35 cm, submitted in toto in a cassette labeled D. Part E: ??Received in formalin labeled ?gastric polyp biopsies? are 3 gibson and gibson-pink irregular tissue fragments each measuring 0.2 cm, submitted in toto in a cassette labeled E. CEDS Special studies ordered and performed: Immunostain for H. pylori on E; AB/PAS stains on A, B and E Copies To: ?? Sima Kaur ?? [address] ?? [place] [address] ?? [phone] ?? Joahnna Kuo MD ?? [facility] ?? [address] ?? [place] ?? [phone] ?? [email or web address] ? CONTINUED ON NEXT PAGE ----- ------- Name: Stephanie Luz ? Age/Sex: 69/F ? : 1955 Unit#: [id number] ?? Attend Dr: Johanna Kuo MD ?Re12/30/24 ?Status: DEP SDC ? Location: HO.SSS ?Disch: ? ----- ------- SPEC : [id number] ? RECD: 12/30/24-1200 ? STATUS: ??SOUT ? REQ NUM: [id number] ? CAMI: 12/30/24-1058 ? SUBM DR: Johanna Kuo MD ? ENTERED: ??12/30/24-5 ?SP TYPE: Surgical ? OTHR DR: Sima Kaur ? ORDERED: ??HE /15, Gross Micro L4/5, IHC, Special st. 2/3, H. pylori, AB/PAS/3 ? ----- ------- Signed (signature on file) Fernando De MD 01/03/25 2162 ? ----- ------- ? END OF REPORT ? us Generic External Data Provider LAB BLOOD ORDERAB LES Final Result Performing Organization Address [facility] de Phone Number [facility] [address] [place] [address] [phone] * (ABNORMAL) Glucose, Whole Blood (12/30/2024 8:13 AM EDT) Glucose, Whole Blood 203(H) 60 - 115 mg/dL [facility] Comment:METER #: [id number] 12/30/2024 8:13 AM EDT 12/30/2024 8:18 AM EDT Generic External Data Provider LAB BLOOD ORDERAB LES Final Result Performing Organization Address [facility] Co de Phone Number [facility] [address] [place] [address] [phone] * XR CERVICAL SPINE 4V (12/29/2024 11:37 AM EDT) Anatomical Region Laterality Modality Abdomen Radiographic Bettye ging 12/29/2024 11:3 7 AM EDT Narrative 12/29/2024 12:34 PM EDT ?[facility] ?[address] ?[place] [address] ?XRay Report ? Signed ? Patient: Sukh,Stephanie ?MR#: MM ?? [id number] ? : 1955 ?Acct:[id number] ? Age/Sex: 69 / F ?ADM Date: 12/29/ ? Loc: HO.HHCX ? Attending Dr: Reina Hernandez MD ? Ordering Physician: Reina Hernandez MD ?? Date of Service: 12/29/24 ?? Procedure(s): XR cervical spine 4V ?? Accession Number(s): [id number] ? cc: Reina Hernandez MD ? EXAMINATION: [...] DD/ 1137 ? TD/TT: 12/29/24 1200 ? Watch Inspector: ? Procedure Note Juan, Image - 12/29/[address] [address] XRay Report Signed Patient: Stephanie LuzMR#: [id number] : 1955cct:[id number] Age/Sex: 69 / FADM Date: 12/29/24 Loc: HO.HHCX Attending Dr: Reina Hernandez MD Ordering Physician: Reina Hernandez MD Date of Service: 12/29/24 Procedure(s): XR cervical spine 4V Accession Number(s): [id number] cc: Reina Hernandez MD EXAMINATION: XR CERVICAL [...] 12/29/24 1231 DD/ 1137 TD/TT: 12/29/24 1200 Watch Inspector: us Reina Hernandez MD IMG XR PROCEDURES Final Re sult * FL Esophagus Barium Swallow (11/16/2024 9:13 AM EST) Anatomical Region Laterality Modality Head, Neck Radiographic Bettye ging 11/16/2024 9:13 AM EST Narrative 11/17/2024 8:23 AM EST ? [facility] ?[address] ?[place] [address] ? Fluoroscopy Report ? Signed ? Patient: Sukh,Stephanie ?MR#: MM ?? [id number] ? : 1955 ?Acct:[id number] ? Age/Sex: 69 / F ?ADM Date: 01/28/25 ? Loc: HO.XRAY ? Attending Dr: Carey TATE ? Ordering Physician: Carey Carson ?? Date of Service: 11/16/24 ?? Procedure(s): FL barium swallow ?? Accession Number(s): [id number] ? cc: Carey Carson; Sima Kaur ? [...] signed by Johann Connelly MD in OV> ?11/17/2421 ? DD/ 2 ? TD/TT: 11/16/2440 ? Watch Inspector: MSM ? Procedure Note Nimco Martinez - 11/17/[address] [address] Fluoroscopy Report Signed Patient: Stephanie LuzMR#: MM [id number] : 1955cct:[id number] Age/Sex: 69 / FADM Date: 11/16/24 Loc: GENO Attending Dr: Carey TATE Ordering Physician: Carey Carson Date of Service: 11/16/24 Procedure(s): FL barium swallow Accession Number(s): [id number] cc: Carey Carson; Sima Kaur EXAMINATION: XR [...] by: Johann Connelly MD 11/17/2024 08:21 AM [facility] Dictated By: Johann Connelly MD Signed By: <Electronically signed by Johann Connelly MD in OV> 11/17/24 0821 DD/ 0913 TD/TT: 11/16/24 0940 Watch Inspector: DAR[facility] Ex[facility] nal Provider IMG FLUOROSCOPY PROCEDURES Edited Result - Final * (ABNORMAL) POCT A1C (08/16/2024 9:18 AM EDT) Hemoglobin A1C 7.4(A) 4.0 - 6.0 % QC Media Lot # [id number] Lot# Expiration Date ,926,780 Blood 08/16/2024 9:18 AM EDT Sima Kaur MD POINT OF CARE TEST ENTER/EDIT ORDERABLES Final Result * BI Mammogram Screening Tomosynthesis Bilateral (07/01/2024 11:30 AM EDT) Anatomical Region Laterality Modality Breast Bilateral Mammography 07/01/2024 11:3 0 AM EDT Narrative 07/14/2024 7:50 PM EDT ? [facility] ? [address] ?[place] [address] ? Mammography Report ? Signed ? Patient: Sukh,Stephanie ?MR#: MM ?? [id number] ? : 1955 ?Acct:[id number] ? Age/Sex: 69 / F ?ADM Date: 07/01/24 ? Loc: HO.MAMMO ? Attending Dr: Sima Kaur MD ? Ordering Physician: Sima Kaur ?Results: 0Incomple ?? te: Needs Additional Imaging Evaluation ? Date of Service: 07/01/24 ?Follow Up: Additional Imagi ?? ng ? Procedure(s): MM tomosynthesis screening BI ?? Accession Number(s): [id number] ? cc: Sima Kaur ? EXAMINATION: ?? [...] DD/ 1130 ? TD/TT: 07/01/24 1149 ? Watch Inspector: ? Procedure Note Dondaniellekalipatelter, Image - 07/14/2024 [place] [facility] [address] [place] [address] Mammography Report Signed Patient: Stephanie Luz#: MM [id number] : 7Acct:[id number] Age/Sex: 69 / FADM Date: 07/01/24 Loc: KATHERINE Attending Dr: Sima Kaur MD Ordering Physician: Klebre Kaurults: 0Incomple te: Needs Additional Imaging Evaluation Date of Service: 07/01/24Follow Up: Additional Imagi ng Procedure(s): MM tomosynthesis screening BI Accession Number(s): [id number] cc: Sima Kaur EXAMINATION: MM SCREENING DIGITAL [...] OV> 07/14/241946 DD/ 1130 TD/TT: 07/01/24 1149 Watch Inspector: Sima Kaur MD IMG BI PROCEDURES Edited Resul t - Final * Hepatitis C Antibody with Reflex to HCV, RNA, Quantitative, Real-Time PCR (05/25/2024 11:37 AM EDT) Hepatitis C Antibody Nonreactive Nonreactive [facility] Comment:Antibodies to HCV no t detected; does not exclude early acuteHCV infection. Blood Venous blood specimen / Unknown 05/25/2024 11:37 AM EDT 05/25/2024 1:24 PM EDT Sima Kaur MD LAB BLOOD ORDERABLES Final Res ult Performing Organization Address [facility] Co de Phone Number [facility] [address] [place] [address] [phone] * (ABNORMAL) Lipid Panel, Standard (11/24/2023 12:45 PM EST) Triglycerides 186(H) <150 mg/dL [facility] Comment:Desirable Triglyceri de: less than 150 mg/dLBorderline High Triglyceride 150-199 mg/dLHigh Triglyceride: 200-499 mg/dLVery High Triglyceride: greater than or equal to 5OO mg/dL Cholesterol 103 <200 mg/dL [facility] Comment:Desirable Cholestero l: less than 200 mg/dLBorderline High Cholesterol: 200-239 mg/dLHigh Cholesterol: greater than 239 mg/dL LDL Cholesterol Calculated 37 <100 mg/dL [facility] Comment:Desirable LDL: less than 100 mg/dLNear Optimal/Above Optimal LDL: 110- 129 mg/dLBorderline High LDL: 130-159 mg/dLHigh LDL: 160-189 mg/dLVery High LDL: greater than or equal to 190 mg/dL HDL Cholesterol 29(L) >40 mg/dL [facility] Comment:Desirable HDL: great er than 40 mg/dL Note: This HDL assay may give artificially low results in patients with liver disease. Blood Venous blood specimen / Unknown 11/24/2023 12:45 PM EST 11/24/2023 1:10 PM EST us Sima Kaur MD LAB BLOOD ORDERABLES Final Res ult Performing Organization Address [facility] Co de Phone Number [facility] [address] [place] [address] [phone] * HPV mRNA E6/E7 w/Reflex to HPV Genotypes 16, 18/45 (2023 12:00 AM EDT) HPV nRNA E6/E7 Not Detected Not Detected [facility] Comment:Methodology: Transcr iption-Mediated AmplificationThis assay detects E6/E7 viral messenger RNA (mRNA) from 14high-risk HPV types (16,18,31,33,35,39,45,51,52,56,58,59,66,68).Cervical sources are required for HPV testing.If a vaginal source from a patient who has had atotal hysterectomy with removal of cervix wassubmitted, please contact the testing laboratoryfor alternative testing options.For additional information, please refer tohttp://education.[employer]/faq/DJT751e2(This link if provided for information/educational purposes only.)THIS TEST WAS PERFORMED AT:[address] [place] [phone] NEWMAN MD HPV mRNA E6/E7 TNP [facility] HPV 16 RNA [facility] HPV 18/45 RNA [facility] 2023 06/16/2023 1:5 0 PM EDT Sima Kaur MD LAB CYTOLOGY ORDERABLES Final Result [facility] [address] [place] [address] [phone] * Pap Smear (2023) 2023 06/16/2023 1:5 0 PM EDT Narrative [facility] - 06/28/2023 2:14 PM EDT ----- ------- Name: Stephanie Luz ? Age/Sex: 68/F ? : 1955 Unit#: [id number] ?? Attend Dr: Sima Kaur ?Re06/13/23 ?Status: DEP REF ? Location: HO.LNP ?Disch: ? ----- ------- SPEC : [id number] ?RECD: 06/16/23-5350 ? STATUS: ??SOUT ? REQ NUM: [id number] ? CAMI: 06/13/23- ? SUBM DR: Sima Kaur ? ENTERED: ??06/16/23-1452 ?SP TYPE: Pap Smr ?OTHR DR: ? ORDERED: ??Pap Smear ? Interpretation ?? Satisfactory for evaluation. ?? Negative for intraepithelial lesion or malignancy. ? HPV mRNA E6/E7: ?NOT DETECTED ? This assay detects E6/E7 viral messenger RNA (mRNA) from 14 high-risk HPV types (16, 18, ?? 31, 33, 35, 39, 45, 51, 52, 56, 58, 59, 66, 68) ? HPV testing performed by [facility] [place]. ??See reference laboratory ?? portion of the EMR for entire report. ?Clinical Information LMP:Unknown date Previous PAP test:Unknown date/findings ? Material Received ?? ThinPrep-Vaginal/Cervical ----- ------- Signed (signature on file) Lin Susan Colon 06/28/23 1414 ? ----- ------- ? END OF REPORT ? us Sima Kaur MD LAB CYTOLOGY ORDERABLES Final Result [facility] [address] [place] [phone] from Last 3 Months or Most Recently Relevant to Health Maintenance Insurance * Guarantor: Stephanie Luz Account Type Relation to Patient Date of Phone Billing Address Personal/Family Self [address] [place]21 Care Teams Conference Specialist Relationship Specialty Start Date End Date Sima Kaur MD [address] [place] [phone] PCP - General Family Medicine 11/28/20
--- OUTSIDE RECORDS SUMMARY | 2025-01-13 15:23 | XMS_ITS | Encounter Summary ---
Author Organization [employer] [facility] Address [address] [place] [address] 7t [place] [address] Care Team Providers Care Veterinary Milk Specialist Name Role Phone Sima Kaur MD Primary Care Provider [phone] Encounter Details Date Type Department Care Team (Late st Contact Info) Description 06/20/2023 Orders Only [facility] [address] [place] [address] [phone] Sima Kaur MD [address] [place] [address] [phone] Poison abraham dermatitis (Primary Dx) Social History [...] Description 01/19/2025 3:15 PM EDT Office Visit [facility] [address] [place] [address] [phone] Sima Kaur MD [address] [place] [address] [phone] documented as of this encounter Visit Diagnoses Diagnosis Poison abraham dermatitis- Primary documented in this encounter Additional Health Concerns Assessment Noted Time PHQ-9 Depression Total Score: 9 03/03/20 23 9:28 AM EDT documented as of this encounter Care Teams Veterinary Milk Specialist Relationship Specialty Start Date End Date Sima Kaur MD [address] [place] [address] PCP - General Family Medicine 11/28/20 documented as of this encounter
--- OUTSIDE RECORDS SUMMARY | 2025-01-13 15:23 | XMS_ITS | Encounter Summary ---
Author Organization [facility] Address [address] [facility] [address] [place] [address] Phone Care Team Providers Care Leather Sorter Name Role Phone Sima Kaur MD Primary Care Provider [phone] Reason for Visit * Reason Comments Med Refill Encounter Details Date Type Department Care Team (Late Contact Info) Description 06/11/2023 Refill [facility] [address] [place] [phone] [...] Upcoming Encounters Date Type Department Care Team ([facility] Contact Info) Description 07/04/2025 1:00 PM EDT Office Visit [facility] [address] [place] [phone] Fazal Ohara MD [address] [facility] [address] [place] [address] documented as of this encounter Visit Diagnoses Not on filedocumented in this encounter Care Teams Leather Sorter Relationship Specialty Start Date End Date Sima Kaur MD [address] [place], [place] [phone] PCP - General Associate Professor Of Biology 05/24/21 documented as of this encounter
--- OUTSIDE RECORDS SUMMARY | 2025-01-13 15:23 | XMS_ITS | Encounter Summary ---
Author Organization [employer] Address 75 [facility]t [place] [address] Care Team Providers Care Ham Stripper Name Role Phone Sima Kaur MD Primary Care Provider [phone] Encounter Details Date Type Department Care Team [...] 3:15 PM EDT Office Visit [facility] 230 [place], [place] [phone] Sima Kaur MD [address] [place] [address] documented as of this encounter Procedures Procedure Name Priority Date/Time Associated Diagnosis Comments HEMATOXYLIN AND EOSIN STAIN Routine 12/30/2024 10:58 AM EDT GLUCOSE, WHOLE BLOOD Routine 12/30/2024 8:13 AM EDT documented in this encounter Results * Hematoxylin and Eosin Stain (12/30/2024 10:58 AM EDT) 12/30/2024 10:5 8 AM EDT 12/30/2024 12:00 PM EDT [facility]S - 01/03/2025 1:42 PM EDT ----- ------- Name: Stephanie Luz ? Age/Sex: 69/F ? : 1955 Unit#: [id number] ?? Attend Dr: Johanna Kuo MD ?Re12/30/24 ?Status: DEP SDC ? Location: HO.SSS ?Disch: ? ----- ------- SPEC : [id number] ? RECD: 12/30/24-1200 ? STATUS: ??SOUT ? REQ NUM: [id number] ? CAMI: 12/30/24-1058 ? SUBM DR: Johanna [...] CONTINUED ON NEXT PAGE ----- ------- Name: Fortino Luzette ? Age/Sex: 69/F ? : 1955 Unit#: [id number] ?? Attend Dr: Johanna Kuo MD ?Re12/30/24 ?Status: DEP SDC ? Location: HO.SSS ?Disch: ? ----- ------- SPEC : [id number] ? RECD: 12/30/24-1200 ? STATUS: ??SOUT ? REQ NUM: [id number] ? CAMI: 12/30/24-1058 ? SUBM DR: Johanna [...] Copies To: ?? Sima Kaur ?? [address] ?? [place] [address] ?? [phone] ?? Johanna Kuo MD ?? [facility] Gastroenterology Services ?? [address] ?? [place] [address] ?? [phone] ?? [email or web address] ? CONTINUED ON NEXT PAGE ----- ------- Name: Stephanie Luz ? Age/Sex: 69/F ? : 1955 Unit#: [id number] ?? Attend Dr: Johanna Kuo MD ?Re12/30/24 ?Status: DEP SDC ? Location: HO.SSS ?Disch: ? ----- ------- SPEC : [id number] ? RECD: 12/30/24-1200 ? STATUS: ??SOUT ? REQ NUM: [id number] ? CAMI: 12/30/24-1058 ? SUBM DR: Johanna Kuo MD ? ENTERED: ??12/30/24-1225 ?SP TYPE: Surgical ? OTHR DR: Sima Kaur ? ORDERED: ??HE Stain/15, Gross Micro L4/5, IHC, Special st. 2/3, H. pylori, AB/PAS/3 ? ----- ------- Signed (signature on file) Fernando De MD 01/03/25 1342 ? ----- ------- ? END OF REPORT ? us Generic External Data Provider LAB BLOOD ORDERAB LES Final Result Performing Organization Address [facility] Co de Phone Number [facility] [address] [place], [place] [phone] * (ABNORMAL) Glucose, Whole Blood (12/30/2024 8:13 AM EDT) Glucose, Whole Blood 203(H) 60 - 115 mg/dL [facility] Comment:METER #: [id number] 12/30/2024 8:13 AM EDT 12/30/2024 8:18 AM EDT Generic External Data Provider LAB BLOOD ORDERAB LES Final Result Performing Organization Address [facility] Co de Phone Number [facility] [address] [place], [place] [phone] documented in this encounter Visit Diagnoses Not on filedocumented in this encounter Additional Health Concerns Assessment Noted Time PHQ-9 Depression Total Score: 10 05/25/ 024 11:02 AM EDT documented as of this encounter Care Teams Ham Stripper Relationship Specialty Start Date End Date Sima Kaur MD [address] [place] [address] PCP - General Family Medicine 11/28/20 documented as of this encounter
--- OUTSIDE RECORDS SUMMARY | 2025-01-13 15:23 | XMS_ITS | Encounter Summary ---
Author Organization [employer] [facility] Address 75 [facility] 7t [place] [address] Care Team Providers Care Ships Or Barges Loader Name Role Phone Sima Kaur MD Primary Care Provider [phone] Encounter Details Date Type Department Care Team (Late st Contact Info) Description 01/10/2023 Abstract [facility] MED[facility]INE [address] [place] [address] [phone] Sima Kaur MD [address] [place] [address] [phone] Social History Tobacco Use Types Packs/Day Years [...] Description 01/19/2025 3:15 PM EDT Office Visit [facility] [address] [place] [address] [phone] Sima Kaur MD [address] [place] [address] [phone] documented as of this encounter Procedures Procedure [...] ORDERABLES F inal Result Performing Organization Address City/State/[facility] Co de Phone Number [facility] [address], [place] [address] documented in this encounter Visit Diagnoses Not on filedocumented in this encounter Care Teams Ships Or Barges Loader Relationship Specialty Start Date End Date Sima Kaur MD [address] [place] [address] PCP - General Family Medicine 11/28/20 documented as of this encounter
--- OUTSIDE RECORDS SUMMARY | 2025-01-13 15:23 | XMS_ITS | Encounter Summary ---
Author Organization [facility] Address [address] [facility] 200 [place] [address] Phone Care Team Providers Care Health Education Director Name Role Phone Sima Kaur MD Primary Care Provider [phone] Reason for Visit * Reason Comments Med Refill Encounter Details Date Type Department Care Team (Late Contact Info) Description 05/12/2023 Refill [facility] [address] [place] [address] [...] Upcoming Encounters Date Type Department Care Team ([facility] Contact Info) Description 07/04/2025 1:00 PM EDT Office Visit [facility] [address] [place] [address] Fazal Ohara MD 31[address] [facility] 204 [place] [address] documented as of this encounter Visit Diagnoses Not on filedocumented in this encounter Care Teams Health Education Director Relationship Specialty Start Date End Date Sima Kaur MD [address] [place], [place] [phone] PCP - General Broadcast Operations Engineer 05/24/21 documented as of this encounter
--- OUTSIDE RECORDS SUMMARY | 2025-01-13 15:23 | XMS_ITS | Encounter Summary ---
Author Organization [employer] Address [address] [facility] [address] 7[address] [place] [address] Care Team Providers Care Cognos Analyst Name Role Phone Sima Kaur MD Primary Care Provider [phone] Reason for Visit * Reason Onset Date Comments Results 12/30/2024 Encounter Details Date Type Department Care Team ([facility] st Contact Info) Description 12/30/2024 Telephone [facility] 230 [place], [place] [phone] Sima Kaur MD 230 [place], [place] [phone] Results Social History Tobacco Use Types Packs/Day [...] was referred to orthopedics. Phone number for [facility] Orthopedics provided to patient. Advised to return call to clinic with any additional questions/ concerns. Patient verbalizes understanding and agreement with plan of care at this time. ---- Message ----- From: Reina Hernandez MD Sent: 12/29/2024 12:49 PM EDT To: [facility] Red Team Nurses Please let Stephanie know [...] Description 01/19/2025 3:15 PM EDT Office Visit [facility] [address] [place] [address] Sima Kaur MD [address] [place] [address] documented as of this encounter Visit Diagnoses Not on filedocumented in this encounter Additional Health Concerns Assessment Noted Time PHQ-9 Depression Total Score: 10 024 11:02 AM EDT documented as of this encounter Care Teams Cognos Analyst Relationship Specialty Start Date End Date Sima Kaur MD [address] [place] [address] PCP - General Family Medicine 11/28/20 documented as of this encounter
--- OUTSIDE RECORDS SUMMARY | 2025-01-13 15:23 | XMS_ITS | Encounter Summary ---
Author Organization [employer] Address [address] [facility] [address] 7t [place] [address] Care Team Providers Care Print Line Tailer Name Role Phone Sima Kaur MD Primary Care Provider Reason for Visit * Reason Comments Med Refill Encounter Details Date Type Department Care Team (Late st Contact Info) Description 12/14/2024 Refill [facility] 230 [place], [place] [phone] Sima Kaur MD 230 [place], [place] [phone] Type 2 diabetes mellitus without complication, without long-term current use of insulin ([facility] Social History Tobacco Use Types Packs/Day Years [...] 3:15 PM EDT Office Visit [facility] [address] [place] [address] Sima Kaur MD [address] [place] [address] documented as of this encounter Visit Diagnoses Diagnosis Type 2 diabetes mellitus without complication, without long-term current use of insulin ([facility]) documented in this encounter Additional Health Concerns Assessment Noted Time PHQ-9 Depression Total Score: 10 024 11:02 AM EDT documented as of this encounter Care Teams Print Line Tailer Relationship Specialty Start Date End Date Sima Karu MD 230 [place] [address] PCP - General Family Medicine 11/28/20 documented as of this encounter
--- OUTSIDE RECORDS SUMMARY | 2025-01-13 15:23 | XMS_ITS | Clinical Summary ---
Author Organization [facility] Address [address] [place] [address], [place] [address] Care Team Providers Care Industrial Eng Name Role Phone Sima Kaur MD Primary Care Provider [phone] Allergies Active Allergy Reactions Criticality Noted Date [...] 10/23/2024 Refill [facility] [address] [place], [place] [address] Fazal Ohara MD from Last 3 Months [...] Visit [facility] the [address] [place] [address] Fazal Ohara MD [address] [facility] [address] [place] [address] Health Maintenance Due Date Last Done [...] % PVNMA 07/12/2020 us Rtama Conversion LAB [id number] LICITED RESULTS Final Result PVNMA from Last 3 Months or Most Recently Relevant to Health Maintenance Insurance [facility] ([id number]) [facility] ([id number]) Care Teams Industrial Eng Relationship Specialty Start Date End Date Sima Kaur MD [facility]0 [place] [address] PCP - General Plaque Maker 05/24/21
--- OUTSIDE RECORDS SUMMARY | 2025-01-13 15:23 | XMS_ITS | Encounter Summary ---
Author Organization [employer] Address [address] [facility] [address] 7t [place] [address] Care Team Providers Care Plum Packer Name Role Phone Sima Kaur MD Primary Care Provider [phone] Reason for Visit * Reason Comments Pre-visit Planning SDOH screening negat cecy and tobacco screening negative Encounter Details Date Type Department Care Team ([facility] st Contact Info) Description 01/10/2025 Patient Outreach [facility] [address] [place], [place] [phone] Sima Kaur MD 230 [place], [place] [phone] Pre-visit Planning (SDOH screening negative and tobacco screening negative) Social History Tobacco Use Types Packs/Day Years [...] AM EDT documented as of this encounter Progress Notes * Linda Casiano - 01/10/2025 9:53 AM EDT CC Linda placed successful outbound call to patient for pre-visit planning. Patient name and confirmed. Patient confirms appt date and time, and has transportation. Biggest concern for appointment at this time is neck pain Patient advised to bring to appointment a photo id and insurance card. A ppropriate screenings completed in anticipation of appointment. documented in this encounter Plan of Treatment Upcoming Encounters Date Type Department Care Team (Late st Contact Info) Description 01/19/2025 3:15 PM EDT Office Visit [facility] [address] [place] [address] Sima Kaur MD [address] [place] [address] documented as of this encounter Visit Diagnoses Not on filedocumented in this encounter Additional Health Concerns Assessment Noted Time PHQ-9 Depression Total Score: 10 024 11:02 AM EDT documented as of this encounter Care Teams Plum Packer Relationship Specialty Start Date End Date Sima Kaur MD 230 [place] [address] PCP - General Family Medicine 11/28/20 documented as of this encounter
--- OUTSIDE RECORDS SUMMARY | 2025-01-13 15:23 | XMS_ITS | Encounter Summary ---
Author Organization [facility] Address [address] [facility] 200 [place] [address] Phone Care Team Providers Care Brick Tosser Name Role Phone Sima Kaur MD Primary Care Provider [phone] Reason for Visit * Reason Comments Med Refill Encounter Details Date Type Department Care Team (Late Contact Info) Description 07/03/2022 Refill [facility] [address] [place] [address] [...] Upcoming Encounters Date Type Department Care Team ([facility] Contact Info) Description 07/04/2025 1:00 PM EDT Office Visit [facility] [address] [place] [address] Fazal Ohara MD [address] [facility] 204 [place] [address] documented as of this encounter Visit Diagnoses Not on filedocumented in this encounter Care Teams Brick Tosser Relationship Specialty Start Date End Date Sima Kaur MD [address] [place], [place] [phone] PCP - General Pantographer 05/24/21 documented as of this encounter
--- OUTSIDE RECORDS SUMMARY | 2025-01-13 15:23 | XMS_ITS | Encounter Summary ---
Author Organization [employer] [facility] Address 75 [facility] 7t [place] [address] Care Team Providers Care Certified Professional Controller Name Role Phone Sima Kaur MD Primary Care Provider [phone] Reason for Referral * Consultation (Routine) - Closed Specialty Diagnoses / Procedures Referred By Contradha t Referred To Contact Neurosurgery Diagnoses Cervical spine pain Cervical radiculopathy due to degenerative joint disease of spine Sima Kaur MD 230 [place] [address] Phone: tel: fax: Sheridan Valentine MD [address] [place] [address], [address] [place] [address] Phone: tel: fax: Referral ID Status Reason Start Date Expiration Date V isits Requested Visits Authorized [id number] Closed Specialty Services Required 05/28/2024 05/28/2025 1 0 Encounter Details Date Type Department Care Team (Late st Contact Info) Description 05/28/2024 Orders Only [facility] MED[facility]INE 230 [place], [place] [phone] Sima Kaur MD 230 [place], [place] [phone] Cervical spine pain (Primary Dx); Cervical radiculopathy [...] 3:15 PM EDT Office Visit [facility] 230 [place] [address] Sima Kaur MD 230 [place] [address] Scheduled Referrals Name Type Priority Associated Diagnoses [...] documented as of this encounter Care Teams Certified Professional Controller Relationship Specialty Start Date End Date Sima Kaur MD [address] [place] [address] PCP - General Family Medicine 11/28/20 documented as of this encounter
--- OUTSIDE RECORDS SUMMARY | 2025-01-13 15:23 | XMS_ITS | Encounter Summary ---
Author Organization [employer] Address [address] [facility] [address] 7t [place] [address] Care Team Providers Care Information Management Specialist Name Role Phone Sima Kaur MD Primary Care Provider [phone] Reason for Visit * Reason Onset Date Comments Results 12/29/2024 Encounter Details Date Type Department Care Team ([facility] st Contact Info) Description 12/29/2024 Telephone [facility]INE 230 [place], [place] [phone] Tiarra Bassett RN Results Social History Tobacco [...] MD Sent: 12/29/2024 12:49 PM EDT To: [facility] Red Team Nurses Please let Stephanie know x rays showed some abnormalities that could be causing her pain. Please let us know if she does not hear from ortho in a week. Thank you. documented in this encounter Plan of Treatment Upcoming Encounters Date Type Department Care Team (Late st Contact Info) Description 01/19/2025 3:15 PM EDT Office Visit [facility] 230 [place] [address] Sima Kaur MD 230 [place] [address] documented as of this encounter Visit Diagnoses Not on filedocumented in this encounter Additional Health Concerns Assessment Noted Time PHQ-9 Depression Total Score: 10 024 11:02 AM EDT documented as of this encounter Care Teams Information Management Specialist Relationship Specialty Start Date End Date Sima Kaur MD 230 [place] [address] PCP - General Family Medicine 11/28/20 documented as of this encounter
--- OUTSIDE RECORDS SUMMARY | 2025-01-13 15:23 | XMS_ITS | Encounter Summary ---
Author Organization [facility] Address [address] [facility] 200 [place] [address] Phone Care Team Providers Care Rn Radiation Oncology Name Role Phone Sima Kaur MD Primary Care Provider [phone] Reason for Visit * Reason Comments Med Refill Encounter Details Date Type Department Care Team (Late Contact Info) Description 06/03/2022 Refill [facility] [place] [address] [facility] 200 [place] [phone] Chester Alves MD [address] [address] Social History Tobacco Use Types [...] Visit [facility] the [address] [place] [phone] Fazal Ohara MD [address] [address] documented as of this encounter Visit Diagnoses Not on filedocumented in this encounter Care Teams Rn Radiation Oncology Relationship Specialty Start Date End Date Sima Kaur MD [address] [place] [address] PCP - General Glove Sewer 05/24/21 documented as of this encounter
--- OUTSIDE RECORDS SUMMARY | 2025-01-13 15:23 | XMS_ITS | Encounter Summary ---
Author Organization [facility] [facility] Address [address] [facility] [address] 7t [place] [address] Care Team Providers Care Enrollment Processor Name Role Phone Sima Kaur MD Primary Care Provider [phone] Reason for Visit * Reason Onset Date Comments Nurse Triage 09/08/2024 ER Follow-up 09/08/2024 Encounter Details Date Type Department Care Team ([facility] st Contact Info) Description 09/08/2024 Telephone [facility] 230 [place], [place] [phone] Sima Kaur MD 230 [place], [place] [phone] Nurse Triage; ER Follow-up Social History Tobacco [...] EST Triage call Pt was seen in [facility] for left ear infection. Pt was prescribed [...] 09/04/24. Pt is advised to come to [facility] today open till 8pm. No available apts [...] ED visit on : Date: 09/04/24 Hospital: [facility] Seen for: Ear infection Pt stated she is having trouble with the medication prescribed. Pt reported following symptoms earache, swollen grands, and coughing Patient advised will forward to triage nurse. Contact pt at [phone] documented in this encounter Plan of Treatment Upcoming Encounters Date Type Department Care Team (Late st Contact Info) Description 01/19/2025 3:15 PM EDT Office Visit [facility] [address] [place] [address] Sima Kaur MD [address] [place] [address] documented as of this encounter Visit Diagnoses Not on filedocumented in this encounter Additional Health Concerns Assessment Noted Time PHQ-9 Depression Total Score: 10 024 11:02 AM EDT documented as of this encounter Care Teams Enrollment Processor Relationship Specialty Start Date End Date Sima Kaur MD [address] [place] [address] [phone] PCP - General Family Medicine 11/28/20 documented as of this encounter
== END 2025-01-13 12:53 | disposition home or self-care (01) ==
LOC: HO.HGI 11:54
PROVIDERS: PCP General Practice; Visit Provider Nurse Practitioner
DX: K21.9 Gastro-esophageal reflux disease without esophagitis (principal); K90.0 Celiac disease; R11.2 Nausea with vomiting, unspecified
CPT/HCPCS: 99214

== ENCOUNTER → 2025-01-25 10:56 | Outpatient (REF) | payer OTHER, SELFPAY ==
--- NOTE | 2025-01-25 10:58 | CA_ITS ---
Transthoracic Echocardiogram Patient (Last, First, Middle): Stephanie Luz, Gender: Female Date of : 1955 Age: 69 Procedure Date: 01/25/2025 Procedure Type: Transthoracic Echocardiogram Location: OP Height: 154.94 cm Weight: 68.04 kg BSA: 1.67 m2 Heart Rate: bpm BP: 110 / 66 mmHg [place] Crab: TO Referring MD: Jacqueline Tadeo INDUSTRIAL AUTOMATION SPECIALISTCalixto Symptoms: R94.31 - Abnormal electrocardiogram [ECG] [EKG] Study Quality: Adequate ECG Rhythm: Sinus Conclusions: - The left ventricular systolic function is normal. The calculated ejection fraction is 55% by biplane method. - No obvious valvular pathology seen on this study. Findings Left Ventricle Normal left ventricular cavity size. There is normal left ventricular wall thickness. The left ventricular systolic function is normal. The calculated ejection fraction is 55% by biplane method. There is no evidence of regional wall motion abnormalities. Diastolic function is normal for age. Right Ventricle Normal right ventricular cavity size and systolic function. Atria Both atria are normal in size. Aortic Valve There is a normal trileaflet aortic valve. There is no aortic valve stenosis. There is no aortic valve regurgitation. Mitral Valve The mitral valve appears normal. There is trace mitral valve regurgitation. There is no mitral valve stenosis. Pulmonic Valve The pulmonic valve is likely normal. Tricuspid Valve Normal tricuspid valve structure. There is mild tricuspid valve regurgitation. There is no evidence of pulmonary hypertension. Great Vessels The asc aorta is normal in size. Venous The inferior vena cava is normal in size and collapses greater than 50% with inspiration. Pericardium/Pleural There is no evidence of pericardial effusion. Prior Study Comparison No significant change compared to prior study dated: 07/09/2021. Recommendations, Care & Conclusions No obvious valvular pathology seen on this study. Measurements 2D Linear Measurements IVSd: 0.88 0.6-0.9/0.6-1.0 cm LVIDd: 4.51 3.9-5.3/4.2-5.9 cm LVIDd Index: 2.70 2.4-3.2/2.2-3.1 cm/m2 LVIDs: 2.77 2.0-3.6 cm LVPWd: 0.74 0.7-1.1 cm LA Diam: 3.20 2.7-3.8/3.0-4.0 cm LAIDs Index: 1.92 1.5-2.3 cm/m2 LV Mass: 143.57 67-162/88-224 g LV Mass Index: 85.97 43-95/49-115 g/m2 LVOT Diam: 2.10 3.0+(-)1.3 cm 2D Systolic Function EF 4C: 53.60 >55% EF 2C: 56.50 >55% EF BiP: 54.80 >55% Mitral Valve MV Pk E: 0.49 MV PK A: 0.40 MV Decel Time: 241.00 E/A: 1.20 E'Lateral: 6.09 E'Medial: 6.20 E/E' Med: 8.00 E/E' Lat: 8.10 PHT: 71.00 MVA PHT: 3.10 Decel Burnet: 2.04 Aortic Valve AoV Pk Bishop: 1.29 AoV Mn Bishop: 0.83 AoV VTI: 0.25 AoV Pk Grad: 7.00 Aov Mn Grad: 3.00 CONCEPCION Cont.VTI: 1.92 LVOT LVOT Pk Bishop: 0.68 LVOT Mn Bishop: 0.42 LVOT VTI: 0.14 LVOT Pk Grad: 2.00 LVOT Mn Grad: 1.00 LVOT Diam: 2.10 LVOT Area: 3.46 Diastolic Function MV Pk E: 0.49 MV Pk A: 0.40 E/A: 1.20 E'Medial: 6.20 E/E' Med: 8.00 E' Laterial: 6.09 E/E' Lat: 8.10 Right Ventricle TAPSE (mm): 19.00 TVS' Bishop: 18.20 Tricuspid Valve TR Pk Bishop: 2.21 TR Pk Grad: 20.00 RA Press: 3.00 RVSP: 23.00 Great Vessels Aorta Sinus of Valsalva: 3.08 2.0-3.5 cm Ao Asc: 3.20 2.1-3.4 cm Ao Arch: 3.00 Updated in Other Vendor System with Status of Final Mat Brown MD electronically signed on 01/26/2025 10:29:21 AM with status of Final
--- OUTSIDE RECORDS SUMMARY | 2025-01-25 13:17 | XMS_ITS | Encounter Summary ---
Author Organization [facility] Address [address] [facility] [address] 7t [place] [address] Care Team Providers Care Computer Game Designer Name Role Phone Sima Kaur MD Primary Care Provider [phone] Encounter Details Date Type Department Care Team (Late st Contact Info) Description 01/10/2023 Abstract [facility]INE 230 [place], [place] [phone] Sima Kaur MD 230 [place], [place] [phone] Social History Tobacco Use Types Packs/Day Years [...] CYTOLOGY ORDERABLES F inal Result [facility] [address], [place] [address] documented in this encounter Visit Diagnoses Not on filedocumented in this encounter Care Teams Computer Game Designer Relationship Specialty Start Date End Date Sima Kaur MD [address] [place] [address] PCP - General Family Medicine 11/28/20 documented as of this encounter
--- OUTSIDE RECORDS SUMMARY | 2025-01-25 13:18 | XMS_ITS | Encounter Summary ---
Author Organization [facility] Address [address] [facility] [address] [place] [address] Phone Care Team Providers Care Water Fabricator Operator Name Role Phone Sima Kaur MD Primary Care Provider + [phone] Reason for Visit * Reason Comments Med Refill Encounter Details Date Type Department Care Team (Late Contact Info) Description 05/12/2023 Refill [facility] [address] [place] [phone] Blayne Corral MD Social History Tobacco Use Types Packs/Day Years Used Date Smoking Tobacco: Every Day Cigarettes 0.5 42.3 Started: 10/20/1982 Smokeless Tobacco: Never Alcohol Use [...] Office Visit [facility] [address] [place] [phone] Fazal Ohara MD [address] [facility] [address] [place] [address] documented as of this encounter Visit Diagnoses Not on filedocumented in this encounter Care Teams Water Fabricator Operator Relationship Specialty Start Date End Date Sima Kaur MD [address] [place], [place] [phone] PCP - General Fruit Washer 05/24/21 documented as of this encounter
--- OUTSIDE RECORDS SUMMARY | 2025-01-25 13:18 | XMS_ITS | Encounter Summary ---
Author Organization [facility] Address [address] [facility] [address] [place] [address] Phone Care Team Providers Care Fire Control Assistant Name Role Phone Sima Kaur MD Primary Care Provider + [phone] Reason for Visit * Reason Comments Med Refill Encounter Details Date Type Department Care Team (Late Contact Info) Description 07/03/2022 Refill [facility] [address] [place] [phone] [...] Upcoming Encounters Date Type Department Care Team ([facility] Contact Info) Description 07/04/2025 1:00 PM EDT Office Visit [facility] [address] [place] [phone] Fazal Ohara MD [address] [facility] [address] [place] [address] documented as of this encounter Visit Diagnoses Not on filedocumented in this encounter Care Teams Fire Control Assistant Relationship Specialty Start Date End Date Sima Kaur MD [address] [place], [place] [phone] PCP - General Dye Operator 05/24/21 documented as of this encounter
--- OUTSIDE RECORDS SUMMARY | 2025-01-25 13:18 | XMS_ITS | Encounter Summary ---
Author Organization [facility] Address [address] [facility] [address] [place] [address] Phone Care Team Providers Care Make Up Editor Name Role Phone Sima Kaur MD Primary Care Provider + [phone] Reason for Visit * Reason Comments Med Refill Encounter Details Date Type Department Care Team (Late Contact Info) Description 06/11/2023 Refill [facility] [address] [place] [phone] [...] Upcoming Encounters Date Type Department Care Team ([facility] Contact Info) Description 07/04/2025 1:00 PM EDT Office Visit [facility] [address] [place] [phone] Fazal Ohara MD [address] [facility] [address] [place] [address] documented as of this encounter Visit Diagnoses Not on filedocumented in this encounter Care Teams Make Up Editor Relationship Specialty Start Date End Date Sima Kaur MD [address] [place], [place] [phone] PCP - General Hand Rug Cleaner 05/24/21 documented as of this encounter
--- OUTSIDE RECORDS SUMMARY | 2025-01-25 13:18 | XMS_ITS | Clinical Summary ---
Author Organization [employer] Address [address] [place] [address] Care Team Providers Care Helicopter Dispatcher Name Role Phone Sima Kaur MD Primary Care Provider [phone] Allergies Active Allergy Reactions Criticality Noted Date Comments Amoxicillin 04/27/2021 Other reaction(s): GI Problems Clavulanic Acid 04/27/2021 Clonidine Other 01/14/2011 Other reaction(s): dizziness, headache, GI Codeine Other 01/20/2025 Medications acetaminophen (Tylenol 8 Hour) 650 MG [...] MG tablet Take 20 mg by mouth. Active omeprazole (PriLOSEC) [address] capsule TAKE 1 CAPSULE BY MOUTH ONCE DAILY FOR 30 DAYS Active diclofenac (Cataflam) 50 MG tablet TAKE 1 TABLET BY MOUTH THREE TIMES DAILY NEEDED FOR HEADACHE FOR 7 DAYS Active HYDROcodone-yvette taminophen (Cherokee) 5-325 MG tablet TAKE 1 TABLET BY [...] DAILY WITH BREAKFAST 180 tablet 3 Active atenolol (Tenormin) 50 MG tabletIndicatio ns:Primary hypertension TAKE 1 & 1/2 (ONE & ONE-HALF) TABLETS BY MOUTH ONCE DAILY 135 tablet 3 Active chlorhexidine (Peridex) 0.12 % solution SWISH 15 ML IN MOUTH AND SPIT OUT TWICE DAILY FOR 10 DAYS Active famotidine (Pepcid) 40 MG tablet Take 40 mg by mouth at bedtime. Active clotrimazole (Lotrimin) 1 % cream APPLY [...] complication, without long-term current use of insulin ([facility]) INJECT 1.5 MG (0.5 ML) SUBCUTANEOUSLY ONCE A WEEK Active predniSONE (Deltasone) 20 MG tablet Take 40 mg by mouth Once per day. Active melatonin 5 MG tabletIndicatio ns:Primary insomnia Take 2 tablets (10 mg) by mouth at bedtime. 180 tablet 3 Active Alcohol Swabs (B-D SINGLE USE SWABS REGULAR) padsIndications :Type 2 diabetes mellitus without complication, without long-term current use of insulin ([facility]) USE 1 SWAB EXTERNALLY TWICE DAILY 100 each 11 Active FREESTYLE LITE test stripIndication s:Type 2 diabetes mellitus without complication, without long-term current use of insulin ([facility]) USE 1 STRIP TO CHECK GLUCOSE TWICE DAILY DIRECTED 150 each 3 Active hydroCHLOROthia zide (HYDRODiuril) 25 MG tabletIndicatio ns:Essential hypertension TAKE 1 TABLET BY MOUTH IN THE MORNING 90 tablet 3 Active clobetasol (Temovate) 0.05 % ointmentIndicat ions:Dermatitis Apply topically 2 times daily. 15 g 1 Active D3 25 MCG (1000 UT) capsule Take 1 capsule by mouth once daily 90 capsule Active Tirzepatide (Mounjaro) 2.5 MG/0.5ML solution auto-injectorIn dications:Type 2 diabetes mellitus with diabetic nephropathy, without long-term current use of insulin ([facility]) Inject 2.5 mg under the skin 1 (one) time per week. 2 mL 3 Active cyclobenzaprine (Flexeril) 10 MG tabletIndicatio ns:Neck pain Take 1 tablet (10 mg) by mouth if needed in the morning and at bedtime for muscle spasms. 60 tablet 2 025 2024 Active amoxicillin-cla vulanate (Augmentin) 875-125 MG tablet Take 1 tablet by mouth 2 times daily. Active benzonatate (Tessalon) 200 MG capsule Take 1 capsule by mouth every 8 (eight) hours if needed for cough. 024 Active cholecalciferol (D3) 25 MCG (1000 UT) capsule TAKE 1 CAPSULE BY MOUTH EVERY DAY 90 capsule 3 024 2024 Discontinued Dulaglutide (Trulicity) 3 MG/0.5ML solution auto-injectorIn dications:Type 2 diabetes mellitus without complication, without long-term current use of insulin ([facility]) Inject 3 mg under the skin 1 (one) time per week. 2 mL 6 024 2024 Discontinued(S michelle effects) cyclobenzaprine (Flexeril) 10 MG tabletIndicatio ns:Neck pain One tab po at bedtime prn pain of muscles, do not drive with medicaion 10 tablet 025 2024 Discontinued Active Problems Problem Noted Date Diagnosed Date Primary insomnia 08/18/2024 Neck pain 05/26/2024 Assessment & Plan (01/20/2025 2:23 PM EDT): Pt with acute on chronic pain and s/p fusion of C5-6. 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 Consult placed Assessment & Plan (12/28/2024 5:33 PM EDT): [...] Much improved with Emgality Continue followup at [facility] neurology Encouraged wear of CPAP for help with SANTIAGO and BP Assessment & Plan (10/15/2022 11:53 AM EST): Much improved with Emgality Continue followup at [facility] neurology Encouraged wear of CPAP for help with SANTIAGO and BP 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 05/24/2021 Assessment & Plan (06/12/2023 8:48 PM EDT): cont pricing coordinator followup Assessment & Plan (05/09/2023 10:10 AM EDT): Pt has a follow up with pricing coordinator next month Nicotine dependence 05/24/2021 Assessment & Plan (10/15/2022 11:54 AM EST): Recommend quitting as much as possible Proteinuria 05/24/2021 Renal stone 05/24/2021 Stage 2 chronic kidney disease 05/24/2021 Restless legs 11/17/2018 Assessment & Plan (03/04/2023 6:06 AM EDT): More active with her acute stress/grief Type 2 diabetes mellitus wit h diabetic nephropathy, without long-term current use of insulin 08/06/2017 Assessment & Plan (01/20/2025 2:25 PM EDT): A1C 6.8 Given that GI has been adjusting her medication for IBS and she finds no relief, I think it is time to declare it more likely that Trulicity is causing her symptoms of abdominal pain and nausea, and switch to Mounjaro PA will be submitted due to intolerance of Trulicity 3mg weekly continue Glipizde 20 mg XL Continue Farixga 5mg daily Assessment & Plan (05/25/2024 6:52 PM EDT): A1C 7.1 Continue Trulicity 1.5 mg weekly continue Glipizde 20 mg XL Continue Farixga 5mg daily Assessment & Plan (03/08/2024 10:53 AM EDT): -increase in A1c from 7.1 (11/24/23) to 7.4 today -patient has been on reduced dose of Trulicity secondary to medication availability -called [facility] pharmacy and confirmed Trulicity 1.5 mg is [...] Mixed hyperlipidemia 11/27/2015 Overweight 11/27/2015 Smoker 11/27/2015 Resolved Problems Problem Noted Date Diagnosed Date Resolved Date Type 2 diabetes mellitus wit hout complication, without long-term current use of insulin 08/18/2024 01/20/2025 Encounters Date Type Department Care Team Description 01/19/2025 3:15 PM EDT Office Visit [facility] [address] [place] [phone] Sima Kaur MD Neck pain (Primary Dx); Type 2 diabetes mellitus without complication, without long-term current use of insulin ([facility]); Dietary counseling; Exercise counseling; Overweight; Depression, recurrent (CMS/HCC); Type 2 diabetes mellitus with diabetic nephropathy, without long-term current use of insulin (CMS/HCC) 01/19/2025 Travel 01/15/2025 Refill [facility] [address] [place] [address] [phone] Sima Kaur MD 01/13/2025 Orders Only GENERIC EXTERNAL DATA DEPARTMENT Provider, Generic External Data 01/10/2025 Patient Outreach [address] [address] Sima Kaur MD Pre-visit Planning (SDOH screening negative and tobacco screening negative) 12/30/2024 Telephone [facility] [address] [place] [address] [phone] Sima Kaur MD Results 12/30/2024 Orders Only GENERIC EXTERNAL DATA DEPARTMENT Provider, Generic External Data 12/29/2024 Telephone [facility] [address] [place] [address] [phone] Tiarra Bassett, RACHEL Results 12/28/2024 5:20 PM EDT Office Visit [facility] [address] [place] [phone] Reina Hernandez MD Neck pain (Primary Dx); Dermatitis 12/22/2024 Refill [facility] [address] [place] [phone] Selena Pham FNP Essential hypertension 12/14/2024 Refill [facility] [address] [place] [address] [phone] Sima Kaur MD Type 2 diabetes mellitus without complication, without long-term current use of insulin ([facility]) 11/25/2024 Telephone [facility] [address] [place] [address] [phone] Andra Drake MA recall 11/16/2024 Orders Only [facility] External Provider, [facility] 11/06/2024 Refill [facility] [address] [place] [address] Sima Kaur MD Type 2 diabetes mellitus without complication, without long-term current use of insulin ([facility]) from Last 3 Months Immunizations Name Administration [...] Answer Date Recorded Patient Health Questionnaire-9 Score 14 01/19/2025 Patient Health Questionnaire-9 Score 14 01/19/2025 Last PHQ-9: Questionnaire Data Not on file 0 01/19/2025 Housing Stability Answer Date Recorded What is [...] Answer Date Recorded Patient Health Questionnaire-2 Score 5 01/19/2025 Internet Access Answer Date Recorded Internet Access [...] Sign Reading Time Taken Comments Blood Pressure 150/81 01/19/2025 2:58 PM EDT Pulse 69 01/19/2025 2:58 PM EDT Temperature 36.6 ??C (97.8 ??F) 01/19/2025 2:58 PM ED T Respiratory Rate 16 01/19/2025 2:58 PM EDT Oxygen Saturation 99% 01/19/2025 2:58 PM EDT Inhaled Oxygen Concentration - - Weight 68.9 kg (151 lb 12.8 oz) 01/19/2025 2:58 PM EDT Height 154.9 cm (5' 1 ) 01/19/2025 2:58 PM EDT Body Mass Index 28.68 01/19/2025 2:58 PM EDT Plan of Treatment Health Maintenance Due Date Last Done Comments CT Colonography 1955 FIT DNA/Cologuard 1955 FIT 1955 FOBT 1955 Sigmoidoscopy 1955 Eye Exam 1967 DTaP/Tdap/Td Vaccines (2 - Td or Tdap) 11/18/2022 11/18/2012, 10/18/2008, 10/06/1996 Colonoscopy 01/10/2023 Influenza Vaccine (#1) 2024 , 07/19/2022, 07/19/2022, Additional history exists Lipid Panel 11/24/2024 11/24/2023, 09/20, 01/29/2021, Additional history exists Diabetes: Foot Exam 03/08/2025 03/08/2024, 03/08/2024, 03/08/2024, Additional history exists Alcohol/Substance Use Screening 05/25/2025 05/25/2024 Mammogram 07/01/2025 07/01/2024, 02/2023, 03/24/2023, Additional history exists Depression Monitoring (PHQ-9) 07/21/2025 01/19/2025, 01/19/2025 Diabetes: Hemoglobin A1C 07/21/2025 025, 08/16/2024, 05/25/2024, Additional history exists SDOH Screening 01/10/2026 01/10/2025 Depression Screening 01/19/2026 01/19/2025, 01/20/20 Tobacco Screening 01/19/2026 01/19/2025 Colorectal Cancer Screening 01/17/2028 Postponed from 1955 [...] Procedure Name Priority Date/Time Associated Diagnosis Comments POCT GLYCATED HEMOGLOBIN, TOTAL Routine 01/19/2025 3:08 PM EDT Type 2 diabetes mellitus with diabetic nephropathy, without long-term current use of insulin ([facility]) POCT GLUCOSE Routine 01/19/2025 3:08 PM EDT Type 2 diabetes mellitus with diabetic nephropathy, without long-term current use of insulin ([facility]) TISSUE TRANSGLUTAMINASE AB, IGG Routine 01/13/2025 1:05 PM EDT HEMATOXYLIN AND EOSIN STAIN Routine 12/30/2024 10:58 AM EDT GLUCOSE, WHOLE BLOOD Routine 12/30/2024 8:13 AM EDT XR CERVICAL SPINE 4V Routine 12/29/2024 11:37 AM EDT Neck pain FL ESOPHAGUS BARIUM SWALLOW Routine 11/16/2024 9:13 AM EST BI MAMMOGRAM SCREENING TOMOSYNTHESIS BILATERAL Routine 07/01/2024 11:30 AM EDT HEPATITIS C AB W/REFL TO HCV RNA, QN, PCR Routine 05/25/2024 11:37 AM EDT Epigastric pain LIPID PANEL, STANDARD Routine 11/24/2023 12:45 PM EST Type 2 diabetes mellitus without complication, without long-term current use of insulin ([facility]) HPV MRNA E6/E7 REFLEX TO HPV 16, 18/45 Routine 2023 12:00 AM EDT PAP SMEAR Routine 2023 from Last 3 Months or Most Recently Relevant to Health Maintenance Results * (ABNORMAL) POCT HGB A1C (01/19/2025 3:08 PM EDT) Pathologist [facility] Hemoglobin A1C 6.8(A) 4.0 - 6.0 % QC Media Lot # [id number] Lot# Expiration Date Blood 01/19/2025 3:08 PM EDT us Sima Kaur MD POINT OF CARE TEST ENTER/EDIT ORDERABLES Final Result * POCT Glucose (01/19/2025 3:08 PM EDT) Pathologist [facility] Glucose Blood, POC 97 60 - 200 mg/dL QC Media Lot # [id number] Lot# Expiration Date Blood Capillary blood specimen / Unknown 01/19/2025 3:08 PM EDT Sima Kaur MD POINT OF CARE TEST ENTER/EDIT ORDERABLES Final Result * Tissue Transglutaminase (tTG) Antibody (IgG) (01/13/2025 1:05 PM EDT) Pathologist [facility] Tissue Transglutaminase Antibody IgG 2.1 U/mL [facility] Comment:Value Interpretation ----- <15.0 Antibody not detected> or = 15.0 Antibody detectedTHIS TEST WAS PERFORMED AT:[employer] [place] [id number] NEWMAN MD 01/13/2025 1:05 PM EDT 01/13/2025 1:05 PM EDT us Generic External Data Provider LAB BLOOD ORDERAB LES Final Result [facility] [address] [place] [address] [phone] * Hematoxylin and Eosin Stain (12/30/2024 10:58 AM EDT) 12/30/2024 10:5 8 AM EDT 12/30/2024 12:00 PM EDT Narrative [facility] - 01/03/2025 1:42 PM EDT ----- ------- Name: Stephanie Luz ? Age/Sex: 69/F ? : 1955 Unit#: [id number] ?? Attend Dr: Johanna Kuo MD ?Re12/30/24 ?Status: DEP SDC ? Location: HO.SSS ?Disch: ? ----- ------- SPEC : [id number] ? RECD: 12/30/24-1200 ? STATUS: ??SOUT ? REQ NUM: [id number] ? CAMI: 12/30/24-1058 ? SUBM DR: Johanna [...] ? Age/Sex: 69/F ? : 1955 Unit#: [id number] ?? Attend Dr: Johanna Kuo MD ?Re12/30/24 ?Status: DEP SDC ? Location: HO.SSS ?Disch: ? ----- ------- SPEC : [id number] ? RECD: 12/30/24-1200 ? STATUS: ??SOUT ? REQ NUM: [id number] ? CAMI: 12/30/24-1058 ? SUBM DR: Johanna [...] Copies To: ?? Sima Kaur ?? [address] [facility] ?? [place] [address] ?? [phone] ?? Johanna Kuo MD ?? [facility] ?? [address] ?? [place] ?? [phone] ?? [email or web address] ? CONTINUED ON NEXT PAGE ----- ------- Name: Stephanie Luz ? Age/Sex: 69/F ? : 1955 Unit#: [id number] ?? Attend Dr: Johanna Kuo MD ?Re12/30/24 ?Status: DEP NCC ? Location: HO.SSS ?Disch: ? ----- ------- SPEC : [id number] ? RECD: 12/30/24-1200 ? STATUS: ??SOUT ? REQ NUM: [id number] ? CAMI: 12/30/24-1058 ? SUBM DR: Johanna Kuo MD ? ENTERED: ??12/30/24-5 ?SP TYPE: Surgical ? OTHR DR: Sima Kaur ? ORDERED: ??HE Stain/15, Gross Micro L4/5, IHC, Special st. 2/3, H. pylori, AB/PAS/3 ? ----- ------- Signed (signature on file) Fernando De MD 01/03/25 0292 ? ----- ------- ? END OF REPORT ? us Generic External Data Provider LAB BLOOD ORDERAB LES Final Result Performing Organization Address [facility]/ZIP Co de Phone Number [facility] [address] [place] [address] [phone] * (ABNORMAL) Glucose, Whole Blood (12/30/2024 8:13 AM EDT) Glucose, Whole Blood 203(H) 60 - 115 mg/dL [facility] Comment:METER #: [id number] 12/30/2024 8:13 AM EDT 12/30/2024 8:18 AM EDT Generic External Data Provider LAB BLOOD ORDERAB LES Final Result Performing Organization Address [facility] Co de Phone Number [facility] [address] [place] [address] [phone] * XR CERVICAL SPINE 4V (12/29/2024 11:37 AM EDT) Anatomical Region Laterality Modality Abdomen Radiographic Bettye ging 12/29/2024 11:3 7 AM EDT Narrative 12/29/2024 12:34 PM EDT ?[facility] ?[address] ?[place] [address] ?XRay Report ? Signed ? Patient: Sukh,Stephanie ?MR#: MM ?? [id number] ? : 1955 ?Acct:[id number] ? Age/Sex: 69 / F ?ADM Date: 12/29/24 ? Loc: HO.HHCX ? Attending Dr: Reina Hernandez MD ? Ordering Physician: Reina Hernandez MD ?? Date of Service: 12/29/24 ?? Procedure(s): XR cervical spine 4V ?? Accession Number(s): [id number] ? cc: Reina Hernandez MD ? EXAMINATION: [...] DD/ 1137 ? TD/TT: 12/29/24 1200 ? [facility]: ? Procedure Note Nimco Martinez - 12/29/[address] [address] XRay Report Signed Patient: Stephanie Luz#: MM [id number] : 7Acct:[id number] Age/Sex: 69 / FADM Date: 12/29/24 Loc: HO.HHCX Attending Dr: Reina Hernandez MD Ordering Physician: Reina Hernandez MD Date of Service: 12/29/24 Procedure(s): XR cervical spine 4V Accession Number(s): [id number] cc: Reina Hernandez MD EXAMINATION: XR CERVICAL [...] 12/29/24 1231 DD/ 1137 TD/TT: 12/29/24 1200 [employer] [employer] [facility]: us Reina Hernandez MD IMG XR PROCEDURES Final Re sult * FL Esophagus Barium Swallow (11/16/2024 9:13 AM EST) Anatomical Region Laterality Modality Head, Neck Radiographic Bettye ging 11/16/2024 9:13 AM EST Narrative 11/17/2024 8:23 AM EST ? [facility] ?[address] ?[place] [address] ? Fluoroscopy Report ? Signed ? Patient: Sukh,Stephanie ?MR#: MM ?? [id number] ? : 1955 ?Acct:[id number] ? Age/Sex: 69 / F ?ADM Date: 01/28/25 ? Loc: HO.XRAY ? Attending Dr: Carey Carson ANP-C ? Ordering Physician: Carey Carson ?? Date of Service: 11/16/24 ?? Procedure(s): FL barium swallow ?? Accession Number(s): [id number] ? cc: Carey Carson; Sima Kaur ? [...] signed by Johann Connelly MD in OV> ?11/17/24820 ? DD/ 2 ? TD/TT: 11/16/24939 ? [employer]: MSM ? Procedure Note Nimco Martinez - 11/17/2024 [place] [address] Fluoroscopy Report Signed Patient: Stephanie LuzMR#: [id number] : 1955cct:[id number] Age/Sex: 69 / FADM Date: 11/16/24 Loc: [facility] Attending Dr: Carey TATE Ordering Physician: Carey Carson Date of Service: 11/16/24 Procedure(s): FL barium swallow Accession Number(s): [id number] cc: Carey Carson; Sima Kaur EXAMINATION: XR [...] Johann Connelly MD 11/17/2024 08:21 AM [facility] Dictated By: Johann Connelly MD Signed By: <Electronically signed by Johann Connelly MD in OV> 11/17/24 0821 DD/ 0913 TD/TT: 11/16/24 0940 [facility]: DAR[facility] Exter nal Provider IMG FLUOROSCOPY PROCEDURES Edited Result - Final * BI Mammogram Screening Tomosynthesis Bilateral (07/01/2024 11:30 AM EDT) Anatomical Region Laterality Modality Breast Bilateral Mammography 07/01/2024 11:3 0 AM EDT Narrative 07/14/2024 7:50 PM EDT ? [facility] ? [address] ?[place] [address] ? Mammography Report ? Signed ? Patient: Sukh,Stephanie ?MR#: MM ?? [id number] ? : 1955 ?Acct:[id number] ? Age/Sex: 69 / F ?ADM Date: 09/12/24 ? Loc: HO.MAMMO ? Attending Dr: Sima Kaur MD ? Ordering Physician: Sima Kaur ?Results: 0Incomple ?? te: Needs Additional Imaging Evaluation ? Date of Service: 07/01/24 ?Follow Up: Additional Imagi ?? ng ? Procedure(s): MM tomosynthesis screening BI ?? Accession Number(s): [id number] ? cc: Sima Kaur ? EXAMINATION: ?? [...] DD/ 1130 ? TD/TT: 07/01/24 1149 ? [facility] [facility]: ? Procedure Note [place], Image - [facility]/14/2024 [facility] [address] [place] [address] Mammography Report Signed Patient: Stephanie LuzMR#: [id number] : 7Acct:[id number] Age/Sex: 69 / FADM Date: 07/01/24 Loc: HO.MAMMO Attending Dr: Sima Kaur MD Ordering Physician: Kleber Kaurults: 0Incomple te: Needs Additional Imaging Evaluation Date of Service: 07/01/24Follow Up: Additional Imagi ng Procedure(s): MM tomosynthesis screening BI Accession Number(s): [id number] cc: Sima Kaur EXAMINATION: MM SCREENING DIGITAL [...] Felicia English DO 07/14/2024 07:47 PM EDT RP Dictated By: Felicia English DO Signed By: <Electronically signed by Felicia English DO in OV> 07/14/241946 DD/ 1130 TD/TT: 07/01/24 1149 [facility]: Sima Kaur MD IMG BI PROCEDURES Edited Resul t - Final * Hepatitis C Antibody with Reflex to HCV, RNA, Quantitative, Real-Time PCR (05/25/2024 11:37 AM EDT) Hepatitis C Antibody Nonreactive Nonreactive [facility] Comment:Antibodies to HCV no t detected; does not exclude early acuteHCV infection. Blood Venous blood specimen / Unknown 05/25/2024 11:37 AM EDT 05/25/2024 1:24 PM EDT Sima Kaur MD LAB BLOOD ORDERABLES Final Res ult [facility] [address] [place] [address] [phone] * (ABNORMAL) Lipid Panel, Standard (11/24/2023 12:45 PM EST) Triglycerides 186(H) <150 mg/dL [facility] Comment:Desirable Triglyceri de: less than 150 mg/dLBorderline High Triglyceride 150-199 mg/dLHigh Triglyceride: 200-499 mg/dLVery High Triglyceride: greater than or equal to 5OO mg/dL Cholesterol 103 <200 mg/dL [facility] Comment:Desirable Cholestero l: less than 200 mg/dLBorderline High Cholesterol: 200-239 mg/dLHigh Cholesterol: greater than 239 mg/dL LDL Cholesterol Calculated 37 <100 mg/dL [facility] Comment:Desirable LDL: less than 100 mg/dLNear [...] MD LAB BLOOD ORDERABLES Final Res ult [facility] [address] [place] [phone] * HPV mRNA E6/E7 w/Reflex to HPV Genotypes 16, 18/45 (2023 12:00 AM EDT) HPV nRNA E6/E7 Not Detected Not Detected [facility] Comment:Methodology: Transcr iption-Mediated AmplificationThis assay detects E6/E7 viral messenger RNA (mRNA) from 14high-risk HPV types (16,18,31,33,35,39,45,51,52,56,58,59,66,68).Cervical sources are required for HPV testing.If a vaginal source from a patient who has had atotal hysterectomy with removal of cervix wassubmitted, please contact the testing laboratoryfor alternative testing options.For additional information, please refer [email or web address]/CPC569c4(This link if provided for information/educational purposes only.)THIS TEST WAS PERFORMED AT:[employer] [place] [phone] NEWMAN MD HPV mRNA E6/E7 TNP [facility] HPV 16 RNA TNP [facility] HPV 18/45 RNA TNP [facility] 2023 06/16/2023 1:5 0 PM EDT Sima Kuar MD LAB CYTOLOGY ORDERABLES Final Result [facility] [address] [place] [address] [phone] * Pap Smear (2023) 2023 06/16/2023 1:5 0 PM EDT Narrative [facility] - 06/28/2023 2:14 PM EDT ----- ------- Name: Stephanie Luz ? Age/Sex: 68/F ? : 1955 Unit#: [id number] ?? Attend Dr: Sima Kaur ?Re06/13/23 ?Status: DEP REF ? Location: HO.LNP ?Disch: ? ----- ------- SPEC : [id number] ?RECD: 06/16/23 ? STATUS: ??SOUT ? REQ NUM: [id number] ? CAMI: 06/13/23- ? SUBM DR: Sima Kaur ? ENTERED: ??06/16/23 ?SP TYPE: Pap Smr ?OTHR : ? ORDERED: ??Pap Smear ? Interpretation ?? Satisfactory for evaluation. ?? Negative for intraepithelial lesion or malignancy. ? HPV mRNA E6/E7: ?NOT DETECTED ? This assay detects E6/E7 viral messenger RNA (mRNA) from 14 high-risk HPV types (16, 18, ?? 31, 33, 35, 39, 45, 51, 52, 56, 58, 59, 66, 68) ? HPV testing performed by [facility], [place], [place]. ??See reference laboratory ?? portion of the EMR for entire report. ?Clinical Information LMP:Unknown date Previous PAP test:Unknown date/findings ? Material Received ?? ThinPrep-Vaginal/Cervical ----- ------- Signed (signature on file) Lin Colon 06/28/23 1414 ? ----- ------- ? END OF REPORT ? us Sima Kaur MD LAB CYTOLOGY ORDERABLES Final Result [facility] [address] [place] [phone] from Last 3 Months or Most Recently Relevant to Health Maintenance Insurance [facility] Care Teams Helicopter Dispatcher Relationship Specialty Start Date End Date Sima Kaur MD [address] [place] [phone] PCP - General Family Medicine 11/28/20
--- OUTSIDE RECORDS SUMMARY | 2025-01-25 13:18 | XMS_ITS | Encounter Summary ---
Author Organization [facility] [facility] Address [address] [facility] 7t [place] [address] Care Team Providers Care Stock Lifter Name Role Phone Sima Kaur MD Primary Care Provider [phone] Reason for Referral * Consultation (Routine) - Closed Specialty Diagnoses / Procedures Referred By Contradha t Referred To Contact Neurosurgery Diagnoses Cervical spine pain Cervical radiculopathy due to degenerative joint disease of spine Sima Kaur MD [address] [place] [address] Phone: tel: fax: Sheridan Valentine MD [address] [place] [address], [address] [place] [address] Phone: tel: fax: Referral ID Status Reason Start Date Expiration Date V isits Requested Visits Authorized [id number] Closed Specialty Services Required 05/28/2024 05/28/2025 1 0 Encounter Details Date Type Department Care Team (Late st Contact Info) Description 05/28/2024 Orders Only [facility] [address] [place], [place] [phone] Sima Kaur MD [address] [place], [place] [phone] Cervical spine pain (Primary Dx); Cervical radiculopathy [...] documented as of this encounter Care Teams Stock Lifter Relationship Specialty Start Date End Date Sima Kaur MD [address] [place] [address] PCP - General Family Medicine 11/28/20 documented as of this encounter
--- OUTSIDE RECORDS SUMMARY | 2025-01-25 13:18 | XMS_ITS | Encounter Summary ---
Author Organization [facility] Address [address] [facility] 7t [place] [address] Care Team Providers Care Armor Officer Name Role Phone Sima Kaur MD Primary Care Provider [phone] Encounter Details Date Type Department Care Team (Late st Contact Info) Description 06/20/2023 Orders Only [facility] [address] [place], [place] [phone] Sima Kaur MD [address] [place], [place] [phone] Poison abraham dermatitis (Primary Dx) Social History [...] documented as of this encounter Care Teams Armor Officer Relationship Specialty Start Date End Date Sima Kaur MD [address] [place], [place] [phone] PCP - General Family Medicine 11/28/20 documented as of this encounter
--- OUTSIDE RECORDS SUMMARY | 2025-01-25 13:18 | XMS_ITS | Data Portability ---
Author Organization [facility] [place] [facility] [employer] Address [address] [place] [address] Care Team Providers Care Timekeeper Supervisor Name Role Phone HIM [facility] OTHER [facility] Primary Care Provider Assessment No assessment recorded. [...] Name and Address Organization Details Recorded Time 31623 codeine medicatio n Not available Not available Not available 12/27/2024 2670 RxNorm Not Available [employer] - production 5 15:30:47 Medications Name Sig [...] mm[Hg] 150 mm[Hg] 80 mm[Hg] Not Available [employer] - Phrazit 2 11:44:20 Social History None recorded. Functional [...] Note 1587 Ct Redd MD Main - [address] [address] 03/04/2022 11:17:35 06/25/2022 15:48:58 Acute low back pain [id number] M54.50 Pt p/w gradual worsening of LBP [...] assessment and plan as documented by the bridge repair crew person. I provided real time medical direction for [...] Quinteros Member ID Guarantor Name 03/04/2022 1 [facility] - DOS PRIOR TO 2023 - DUAL ELIGIBLE (MEDICARE REPLACEMENT/ADV ANTAGE - HMO) Stephanie Luz [id number] Stephanie Luz Notes Date Note Type Note Provider Name and Address Organization Details Recorded Time 03/04/2022 text/html HPI: Ax: Amoxicillin, clonidine, potassium claluvanate Patient having lower back pain since Thursday 03/01. Radiating to right leg. No urinary sx. taking Tylenol with mild relief. No numbness or known injury to area. .................. .................. .................. .................. .................. .................. .................. ............... Frame Bender Note: Chief Complaint back pain Pertinent positive [...] ............... Disposition: Fulfilled Ct Redd MD 30 [facility],[address], [place], [address], [employer] [facility] 03/04/2022 12:32:02 OBGyn Episode No OBEpisode recorded.
--- OUTSIDE RECORDS SUMMARY | 2025-01-25 13:18 | XMS_ITS | Encounter Summary ---
Author Organization [facility] Address [address] [facility] [address] 7t [place] [address] Care Team Providers Care Banking And Finance Instructor Name Role Phone Sima Kaur MD Primary Care Provider [phone] Reason for Visit * Reason Onset Date Comments Nurse Triage 09/08/2024 ER Follow-up 09/08/2024 Encounter Details Date Type Department Care Team ([facility] st Contact Info) Description 09/08/2024 Telephone [facility] [address] [place], [place] [phone] Sima Kaur MD [address] [place], [place] [phone] Nurse Triage; ER Follow-up Social History Tobacco [...] EST Triage call Pt was seen in [facility] for left ear infection. Pt was prescribed [...] 09/04/24. Pt is advised to come to [facility] today open till 8pm. No available apts [...] ED visit on : Date: 09/04/24 Hospital: [facility] Seen for: Ear infection Pt stated she is having trouble with the medication prescribed. Pt reported following symptoms earache, swollen grands, and coughing Patient advised will forward to triage nurse. Contact pt at [phone] documented in this encounter Plan of Treatment Not on file documented as of this encounter Visit Diagnoses Not on filedocumented in this encounter Additional Health Concerns Assessment Noted Time PHQ-9 Depression Total Score: 10 024 11:02 AM EDT documented as of this encounter Care Teams Banking And Finance Instructor Relationship Specialty Start Date End Date Sima Kaur MD [address] [place] [address] PCP - General Family Medicine 11/28/20 documented as of this encounter
--- OUTSIDE RECORDS SUMMARY | 2025-01-25 13:18 | XMS_ITS | Clinical Summary ---
Author Organization [facility] Address [address] [place] [address], [place] [address] Care Team Providers Care Firing Pin Gauger Name Role Phone Sima Kaur MD Primary Care Provider + [phone] Allergies Active Allergy Reactions Criticality Noted Date [...] tablet by mouth once daily 90 tablet 01/20/20 25 Active lisinopril 20 MG tablet Take 1 tablet by mouth once daily 90 tablet 10/24/19 25 025 Discontinued Active Problems Problem Noted Date [...] Date Type Department Care Team Description 01/19/2025 Refill [facility] [address] [place], [place] [address] Fazal Ohara MD from Last 3 Months [...] Visit [facility] [address] [place] [address] Fazal Ohara MD [address] [facility] [address] [place] [address] Health Maintenance Due Date Last Done Comments Breast Cancer Screening 1955 Colorectal Cancer Screening: Annual FOBT 2006 Colorectal Cancer Screening: Colonoscopy 2006 Colorectal Cancer Screening: Sigmoidoscopy 2006 Diabetes: Ophthalmology Exam 11/19/2020 Diabetes: Pedal Pulse Checked 11/19/2020 Diabetes: Sensory Foot Exam 11/19/2020 Diabetes: Visual Foot Exam 11/19/2020 Diabetes: Hemoglobin A1C 11/16/2024 024, 05/25/2024, 06/09/2023, Additional history exists Influenza Vaccine (Season Ended) 2025 07/19/2022, 08/03/2021, 07/11/2020, Additional history exists Hepatitis B Vaccine Aged Out 08/18/2018, 02/13/2018, [...] % PVNMA 07/12/2020 us [facility] Conversion LAB [id number] LICITED RESULTS Final Result PVNMA from Last 3 Months or Most Recently Relevant to Health Maintenance Insurance ([id number]) [facility] ([id number]) Care Teams Firing Pin Gauger Relationship Specialty Start Date End Date Sima Kaur MD [address] [place] [address] PCP - General Grades 7 And 8 Teacher 05/24/21
--- OUTSIDE RECORDS SUMMARY | 2025-01-25 13:18 | XMS_ITS | Encounter Summary ---
Author Organization [facility] Address [address] [facility] [address] [place] [address] Phone Care Team Providers Care Sales Expert Home Theater Name Role Phone Sima Kaur MD Primary Care Provider + [phone] Reason for Visit * Reason Comments Med Refill Encounter Details Date Type Department Care Team (Late Contact Info) Description 06/03/2022 Refill [facility] [address] [facility] [address] [place] [phone] Chester Alves MD [address] [address] Social History Tobacco Use Types [...] Visit [facility] [address] [place] [phone] Fazal Ohara MD [address] [address] documented as of this encounter Visit Diagnoses Not on filedocumented in this encounter Care Teams Sales Expert Home Theater Relationship Specialty Start Date End Date Sima Kaur MD [address] [place] [address] PCP - General Book Publisher 05/24/21 documented as of this encounter
== END ==
LOC: HO.CARD 10:56
PROVIDERS: PCP General Practice; Visit Provider Nurse Practitioner Family
DX: R94.31 Abnormal electrocardiogram [ECG] [EKG] (principal); G47.33 Obstructive sleep apnea (adult) (pediatric)
CPT/HCPCS: 93306

== ENCOUNTER → 2025-01-25 10:58 | Outpatient (BNV) | payer OTHER, SELFPAY | PROVIDERS: PCP General Practice; Visit Provider Internal Medicine | DX: I36.1 Nonrheumatic tricuspid (valve) insufficiency (principal); R94.31 Abnormal electrocardiogram [ECG] [EKG] | CPT/HCPCS: 93306 ==

== ENCOUNTER 2025-02-20 11:14 | Outpatient (REF) | payer OTHER, SELFPAY ==
--- NOTE | ~2025-02-20 | MR_ITS ---
EXAMINATION: MR CERVICAL SPINE WITHOUT CONTRAST CLINICAL INFORMATION: Neck pain, radiculopathy. Limited range of motion. COMPARISON: None available. TECHNIQUE: MRI of the cervical spine was obtained using routine sequences without contrast. FINDINGS: Paramagnetic field distortion secondary to metallic hardware at C5-6. Craniocervical junction is intact. No bone marrow STIR signal abnormality. Grade 1 retrolisthesis, C4-5. Grade 1 anterolisthesis C6-7 and likely C7-T1 on a degenerative basis. Cervical spinal cord signal is normal. C2-3: No disc herniation. No neuroforamina stenosis. C3-4: Central disc osteophyte complex formation resulting in ventral indentation to the thecal sac. No cord compression. Right neuroforamina narrowing on a degenerative basis. C4-5: Grade 1 retrolisthesis abutting the cord with CSF effacement of the thecal sac. No cord signal abnormality. Bilateral neuroforamina stenosis. C5-6: Postsurgical changes. No cord compression. No neuroforamina stenosis. C6-7: Left-sided disc osteophyte complex formation abutting the cord. No cord compression. Left neuroforamina narrowing on a degenerative basis. C7-T1: No disc herniation. No neuroforamina stenosis. Flow-void signal within the main vessels is normal. Left vertebral artery is slightly dominant. There is fatty signal within the parotid glands. There is a trace of fluid signal within the retropharynx/prevertebral compartment from C2 to C4. MR/MR cervical spine wo con IMPRESSION: Cervical spondylosis more conspicuous at C4-5 resulting in central spinal canal stenosis and bilateral neuroforamina stenosis without cord edema and or myelopathy. Trace of fluid signal prevertebral compartment from C2- C4. Electronically signed by: Tani Marie MD 02/21/2025 12:28 PM EDT
--- OUTSIDE RECORDS SUMMARY | 2025-02-20 11:17 | XMS_ITS | Data Portability ---
Author Organization [facility], [place] [facility] [employer] Address [address] [place] [address] Care Team Providers Care Oracle Scm Consultant Name Role Phone HIM [facility] OTHER [facility] Primary Care Provider [phone] Assessment No assessment recorded. Plan of Treatment [...] Name and Address Organization Details Recorded Time 33777 codeine medicatio n Not available Not available Not available 12/27/2024 2670 RxNorm Not Available [employer] - production 15:30:47 Medications Name Sig Start Date Stop [...] mm[Hg] 150 mm[Hg] 80 mm[Hg] Not Available [employer] - [employer] 2 11:44:20 Social History None recorded. Functional [...] Note [address] Ct Redd MD Main - [address] [address] 03/04/2022 11:17:35 06/25/2022 15:48:58 Acute low back pain [id number] M54.50 Pt p/w gradual worsening of LBP [...] assessment and plan as documented by the superintendent meters. I provided real time medical direction for [...] Quinteros Member ID Guarantor Name 03/04/2022 1 [facility] - DOS PRIOR TO 2023 - DUAL ELIGIBLE (MEDICARE REPLACEMENT/ADV ANTAGE - HMO) Stephanie Luz [id number] Stephanie Luz Notes Date Note Type Note Provider Name and Address Organization Details Recorded Time 03/04/2022 text/html HPI: Ax: Amoxicillin, clonidine, potassium claluvanate Patient having lower back pain since Thursday 03/01. Radiating to right leg. No urinary sx. taking Tylenol with mild relief. No numbness or known injury to area. .................. .................. .................. .................. .................. .................. .................. ............... Card Scraper Note: Chief Complaint back pain Pertinent positive [...] ............... Disposition: Fulfilled Ct Redd MD 30 [facility],[address], [place], [address], [employer] 03/04/2022 12:32:02 OBGyn Episode No OBEpisode recorded.
--- OUTSIDE RECORDS SUMMARY | 2025-02-20 11:17 | XMS_ITS | Clinical Summary ---
Author Organization [facility] Facility Address [address] [place] [address], [place] [address] Care Team Providers Care Master Ship Name Role Phone Sima Kaur MD Primary Care Provider [phone] Allergies Active Allergy Reactions Criticality Noted Date [...] 01/19/2025 Refill [facility] [address] [place], [place] [address] Fazal Ohara MD from Last 3 Months Immunizations Immunization Administration Dates Next Due Hepatitis B 08/18/2018,02/13/2018,04/04/2016 [...] Visit [facility] [address] [place] [address] Fazal Ohara MD [address] [facility] [address] [place] [address] Health Maintenance Due Date Last Done [...] age to complete this topic Pneumococcal Vaccine: 50+ Years Completed 05/09/2023, 10/28/2017 Pneumococcal Vaccine: Peds (0 to 5 Years) and At-Risk Patients (6 to 49 Years) Discontinued 05/09/2023, 10/28/2017 Procedures Procedure Name Priority Date/Time [...] % PVNMA 07/12/2020 us Rtama Conversion LAB [id number] LICITED RESULTS Final Result PVNMA from Last 3 Months or Most Recently Relevant to Health Maintenance Insurance ([id number]) [facility] ([id number]) Care Teams Master Ship Relationship Specialty Start Date End Date Sima Kaur MD [address] [place] [address] PCP - General Enterprise Application Architect 05/24/21
--- OUTSIDE RECORDS SUMMARY | 2025-02-20 11:18 | XMS_ITS | Encounter Summary ---
Author Organization [facility] Address [address] [facility], [address] [address] [facility] [address] [place] [address] Phone Care Team Providers Care Morning Show Newscast Producer Name Role Phone Sima Kaur MD Primary Care Provider + [phone] Reason for Visit * Reason Comments Med Refill Encounter Details Date Type Department Care Team (Late Contact Info) Description 06/03/2022 Refill [facility] [address] [facility] [address] [place] [phone] Chester Alves MD [address] [address] Social History Tobacco Use Types [...] Visit [facility] [address] [place] [phone] Fazal Ohara MD [address] [address] documented as of this encounter Visit Diagnoses Not on filedocumented in this encounter Care Teams Morning Show Newscast Producer Relationship Specialty Start Date End Date Sima Kaur MD [address] [place] [address] PCP - General Senior Application Programmer 05/24/21 documented as of this encounter
--- OUTSIDE RECORDS SUMMARY | 2025-02-20 11:18 | XMS_ITS | Encounter Summary ---
Author Organization [facility] Address [address] [facility] [address] [place] [address] Phone Care Team Providers Care Mergers And Acquisitions Consultant Name Role Phone Sima Kaur MD Primary Care Provider + [phone] Reason for Visit * Reason Comments Med Refill Encounter Details Date Type Department Care Team (Late Contact Info) Description 06/11/2023 Refill [facility] [address] [place] [address] [...] Upcoming Encounters Date Type Department Care Team ([facility] Contact Info) Description 07/04/2025 1:00 PM EDT Office Visit [facility] [address] [place] [address] Fazal Ohara MD [address] [facility] [address] [place] [address] documented as of this encounter Visit Diagnoses Not on filedocumented in this encounter Care Teams Mergers And Acquisitions Consultant Relationship Specialty Start Date End Date Sima Kaur MD [address] [place], [place] [phone] PCP - General Harm Reduction Worker 05/24/21 documented as of this encounter
--- OUTSIDE RECORDS SUMMARY | 2025-02-20 11:18 | XMS_ITS | Clinical Summary ---
Author Organization [employer] Address [address] [facility] 7t [place] [address] Care Team Providers Care Commercial Housekeeper Name Role Phone Sima Kaur MD Primary Care Provider [phone] Allergies Active Allergy Reactions Criticality Noted Date [...] HEADACHE FOR 7 DAYS Active HYDROcodone-yvette taminophen (Centerpoint) 5-325 MG tablet TAKE 1 TABLET BY [...] SUGAR TWICE DAILY 100 each 11 Active chlorhexidine (Peridex) 0.12 % solution SWISH [...] day at the same time. 30 patch Active Trulicity 1.5 MG/0.5ML solution auto-injectorIn dications:Type 2 diabetes mellitus without complication, without long-term current use of insulin (CMS/HCC) INJECT 1.5 MG (0.5 ML) SUBCUTANEOUSLY ONCE A WEEK Active predniSONE (Deltasone) 20 MG tablet Take 40 mg by mouth Once per day. Active melatonin 5 MG tabletIndicatio ns:Primary insomnia Take 2 tablets (10 mg) by mouth at bedtime. 180 tablet 3 024 Active Alcohol Swabs (B-D SINGLE USE SWABS REGULAR) padsIndications :Type 2 diabetes mellitus without complication, without long-term current use of insulin ([facility]) USE 1 SWAB EXTERNALLY TWICE DAILY 100 each 11 025 Active FREESTYLE LITE test stripIndication s:Type 2 diabetes mellitus without complication, without long-term current use of insulin ([facility]) USE 1 STRIP TO CHECK GLUCOSE TWICE DAILY DIRECTED 150 each 3 025 Active hydroCHLOROthia zide (HYDRODiuril) 25 MG tabletIndicatio ns:Essential hypertension TAKE 1 TABLET BY MOUTH IN THE MORNING 90 tablet 3 025 Active clobetasol (Temovate) 0.05 % ointmentIndicat ions:Dermatitis Apply topically 2 times daily. 15 g 1 Active D3 25 MCG (1000 UT) capsule Take 1 capsule by mouth once daily 90 capsule 025 Active Tirzepatide (Mounjaro) 2.5 MG/0.5ML solution auto-injectorIn dications:Type 2 diabetes mellitus with diabetic nephropathy, without long-term current use of insulin ([facility]) Inject 2.5 mg under the skin 1 (one) time per week. 2 mL 3 025 Active cyclobenzaprine (Flexeril) 10 MG [...] hours if needed for cough. 024 Active glipiZIDE XL (Glucotrol XL) 10 MG 24 hr tablet TAKE 2 TABLETS BY MOUTH ONCE DAILY WITH BREAKFAST 180 tablet 3 Active atenolol (Tenormin) 50 MG tabletIndicatio ns:Primary hypertension TAKE 1 & 1/2 (ONE & ONE-HALF) TABLETS BY MOUTH ONCE DAILY 135 tablet 3 025 Active glipiZIDE XL (Glucotrol XL) 10 MG 24 hr tablet TAKE 2 TABLETS BY MOUTH ONCE DAILY WITH BREAKFAST 180 tablet 3 024 2024 Discontinued atenolol (Tenormin) 50 MG tabletIndicatio ns:Primary hypertension TAKE 1 & 1/2 (ONE & ONE-HALF) TABLETS BY MOUTH ONCE DAILY 135 tablet 3 024 2024 Discontinued Active Problems Problem Noted [...] with Emgality Continue followup at [facility] Encouraged wear of CPAP for help with SANTIAGO and BP Assessment & Plan (10/15/2022 11:53 AM EST): Much improved with Emgality Continue followup at [facility] Encouraged wear of CPAP for help with SANTIAGO and BP 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 05/24/2021 Assessment & Plan (06/12/2023 8:48 PM EDT): cont family consumer scientist followup Assessment & Plan (05/09/2023 10:10 AM EDT): Pt has a follow up with family consumer scientist next month Nicotine dependence 05/24/2021 Assessment & [...] of Trulicity secondary to medication availability -called [facility] pharmacy and confirmed Trulicity 1.5 mg [...] Encounters Date Type Department Care Team Description 02/12/2025 Refill [facility] [address] [place] [address] Sima Kaur MD Primary hypertension 01/28/2025 Orders Only [facility] [address] [place] [address] Sima Kaur MD Cervical disc disorder at C4-C5 level with radiculopathy (Primary Dx) 01/27/2025 Telephone [facility] [address] [place] [address] 76876 Sima Kaur MD Referral 01/27/2025 Refill [facility] [address] [place] [address] 16187 Sima Kaur MD 01/19/2025 3:15 PM EDT Office Visit [facility] [address] [place] [address] 38040 Sima Kaur MD Neck pain (Primary Dx); Type 2 diabetes mellitus without complication, without long-term current use of insulin ([facility]); Dietary counseling; Exercise counseling; Overweight; Depression, recurrent ([facility]); Type 2 diabetes mellitus with diabetic nephropathy, without long-term current use of insulin ([facility]) 01/19/2025 Travel 01/15/2025 Refill [facility] [address] [place] [address] 59066 Sima Kaur MD 01/13/2025 Orders Only GENERIC EXTERNAL DATA DEPARTMENT Provider, Generic External Data 01/10/2025 Patient Outreach [facility] [address] [place] [address] [phone] Sima Kaur MD Pre-visit Planning (SDOH screening negative and tobacco screening negative) 12/30/2024 Telephone [facility] [address] [place] [address] 99915 Sima Kaur MD Results 12/30/2024 Orders Only GENERIC EXTERNAL DATA DEPARTMENT Provider, Generic External Data 12/29/2024 Telephone [facility] [address] [place] [address] 54523 Tiarra Bassett, RACHEL Results 12/28/2024 5:20 PM EDT Office Visit [facility] [address] [place] [address] 76994 Reina Hernandez MD Neck pain (Primary Dx); Dermatitis 12/22/2024 Refill [facility] [address] [place] [address] 11717 Selena Pham, MANAGER RENEWABLE ENERGY Essential hypertension 12/14/2024 Refill [facility] [address] [place] [address] 86381 Sima Kaur MD Type 2 diabetes mellitus without complication, without long-term current use of insulin ([facility]) 11/25/2024 Telephone [facility] [address] [place] [address]1040 Andra Drake MA recall from Last 3 Months Immunizations Name Administration [...] 07/01/2025 07/01/2024, 02/2023, 03/24/2023, Additional history exists Diabetes: Hemoglobin A1C 07/21/2025 025, 08/16/2024, 05/25/2024, [...] use of insulin ([facility]) POCT GLUCOSE Routine 01/19/2025 3:08 PM EDT Type 2 diabetes mellitus with diabetic nephropathy, without long-term current use of insulin ([facility]) TISSUE TRANSGLUTAMINASE AB, IGG Routine 01/13/2025 1:05 PM EDT HEMATOXYLIN AND EOSIN STAIN Routine 12/30/2024 10:58 AM EDT GLUCOSE, WHOLE BLOOD Routine 12/30/2024 8:13 AM EDT XR CERVICAL SPINE 4V Routine 12/29/2024 11:37 AM EDT Neck pain BI MAMMOGRAM SCREENING TOMOSYNTHESIS BILATERAL Routine 07/01/2024 11:30 AM EDT HEPATITIS C AB W/REFL TO HCV RNA, QN, PCR Routine 05/25/2024 11:37 AM EDT Epigastric pain LIPID PANEL, STANDARD Routine 11/24/2023 12:45 PM EST Type 2 diabetes mellitus without complication, without long-term current use of insulin (CMS/[facility]) HPV MRNA E6/E7 REFLEX TO HPV 16, 18/45 Routine 2023 12:00 AM EDT PAP SMEAR Routine 2023 from Last 3 Months or Most Recently Relevant to Health Maintenance Results * (ABNORMAL) POCT HGB A1C (01/19/2025 3:08 PM EDT) Hemoglobin A1C 6.8(A) 4.0 - 6.0 % QC Media Lot # [id number] Lot# Expiration Date Blood 01/19/2025 3:08 PM EDT Sima Kaur MD POINT OF CARE TEST ENTER/EDIT ORDERABLES Final Result * POCT Glucose (01/19/2025 3:08 PM EDT) Glucose Blood, POC 97 60 - 200 mg/dL QC Media Lot # [id number] Lot# Expiration Date Blood Capillary blood specimen / Unknown 01/19/2025 3:08 PM EDT Sima Kaur MD POINT OF CARE TEST ENTER/EDIT ORDERABLES Final Result * Tissue Transglutaminase (tTG) Antibody (IgG) (01/13/2025 1:05 PM EDT) Tissue Transglutaminase Antibody IgG 2.1 U/mL [facility] Comment:Value Interpretation ----- <15.0 Antibody not detected> or = 15.0 Antibody detectedTHIS TEST WAS PERFORMED AT:[employer] [place] [phone] NEWMAN MD 01/13/2025 1:05 PM EDT 01/13/2025 1:05 PM EDT Generic External Data Provider LAB BLOOD ORDERAB LES Final Result [facility] [address] [place] [phone] * Hematoxylin and Eosin Stain (12/30/2024 10:58 AM EDT) 12/30/2024 10:5 8 AM EDT 12/30/2024 12:00 PM EDT [facility] - 01/03/2025 1:42 PM EDT ----- ------- Name: Stephanie Luz ? Age/Sex: 69/F ? : 1955 Unit#: [id number] ?? Attend Dr: Johanna Kuo MD ?Re12/30/24 ?Status: DEP SDC ? Location: HO.SSS ?Disch: ? ----- ------- SPEC : [id number] ? RECD: 12/30/24-1200 ? STATUS: ??SOUT ? REQ NUM: [id number] ? CAMI: 12/30/24-1058 ? SUBM DR: Johanna [...] ? Age/Sex: 69/F ? : 1955 Unit#: [id number] ?? Attend Dr: Johanna Kuo MD ?Re12/30/24 ?Status: DEP SDC ? Location: HO.SSS ?Disch: ? ----- ------- SPEC : [id number] ? RECD: 12/30/24-1200 ? STATUS: ??SOUT ? REQ NUM: [id number] ? CAMI: 12/30/24-1058 ? SUBM DR: Johanna [...] Copies To: ?? Sima Kaur ?? [address] [facility] ?? [place] [address] ?? [phone] ?? Johanna Kuo MD ?? [facility] ?? [address] ?? [place] [address] ?? [phone] ?? [email or web address] ? CONTINUED ON NEXT PAGE ----- ------- Name: Stephanie Luz ? Age/Sex: 69/F ? : 1955 Unit#: [id number] ?? Attend Dr: Johanna Kuo MD ?Re12/30/24 ?Status: DEP SDC ? Location: HO.SSS ?Disch: ? ----- ------- SPEC : [id number] ? RECD: 12/30/24-1200 ? STATUS: ??SOUT ? REQ NUM: [id number] ? CAMI: 12/30/24-1058 ? SUBM DR: Johanna [...] Provider LAB BLOOD ORDERAB LES Final Result [facility] [address] [place] [address] [phone] * (ABNORMAL) Glucose, Whole Blood (12/30/2024 8:13 AM EDT) Glucose, Whole Blood 203(H) 60 - 115 mg/dL [facility] Comment:METER #: [id number] 12/30/2024 8:13 AM EDT 12/30/2024 8:18 AM EDT us Generic External Data Provider LAB BLOOD ORDERAB LES Final Result [facility] [address] [place] [address] [phone] * XR CERVICAL SPINE 4V (12/29/2024 11:37 AM EDT) Anatomical Region Laterality Modality Abdomen Radiographic Bettye ging 12/29/2024 11:3 7 AM EDT Narrative 12/29/2024 12:34 PM EDT ?[facility] ?[address] ?[place] [address] ?XRay Report ? Signed ? Patient: Stephanie Luz ?MR#: [id number] ?? [id number] ? : 1955 ?Acct:[id number] ? Age/Sex: 69 / F ?ADM Date: 12/29/24 ? Loc: HO.HHCX ? Attending Dr: Reina Hernandez MD ? Ordering Physician: Reina Hernandez MD ?? Date of Service: 12/29/24 ?? Procedure(s): XR cervical spine 4V ?? Accession Number(s): [id number] ? cc: Reina Hernandez MD ? EXAMINATION: [...] DD/ 1137 ? TD/TT: 12/29/24 1200 ? Die Cutter Apprentice: ? Procedure Note Donamyter, Image - 12/29/[address] [address] XRay Report Signed Patient: Guillermo Luz#: [id number] : 7Acct:[id number] Age/Sex: 69 / FADM Date: 12/29/24 Loc: HO.HHCX Attending Dr: Reina Hernandez MD Ordering Physician: Reina Hernandez MD Date of Service: 12/29/24 Procedure(s): XR cervical spine 4V Accession Number(s): [id number] cc: Reina Hernandez MD EXAMINATION: XR CERVICAL [...] 12/29/24 1231 DD/ 1137 TD/TT: 12/29/24 1200 Die Cutter Apprentice: Reina Hernandez MD IMG XR PROCEDURES Final Re sult * BI Mammogram Screening Tomosynthesis Bilateral (07/01/2024 11:30 AM EDT) Anatomical Region Laterality Modality Breast Bilateral Mammography 07/01/2024 11:3 0 AM EDT Narrative 07/14/2024 7:50 PM EDT ? [facility] [place] ? [address] ?[place] [address] ? Mammography Report ? Signed ? Patient: Sukh,Stephanie ?MR#: MM ?? [id number] ? : 1955 ?Acct:[id number] ? Age/Sex: 69 / F ?ADM Date: 09/12/24 ? Loc: HO.MAMMO ? Attending Dr: Sima Kaur MD ? Ordering Physician: Sima Kaur ?Results: 0Incomple ?? te: Needs Additional Imaging Evaluation ? Date of Service: 07/01/24 ?Follow Up: Additional Imagi ?? ng ? Procedure(s): MM tomosynthesis screening BI ?? Accession Number(s): [id number] ? cc: Sima Kaur ? EXAMINATION: ?? [...] DD/ 1130 ? TD/TT: 07/01/24 1149 ? Die Cutter Apprentice: ? Procedure Note Donotkaliinterpreter, Image - 07/14/2024 [facility] [address] [place] [address] Mammography Report Signed Patient: Stephanie LuzMR#: [id number] : 7Acct:[id number] Age/Sex: 69 / FADM Date: 07/01/24 Loc: HO.MAMMO Attending Dr: Sima Kaur MD Ordering Physician: Kleber Kaurults: 0Incomple te: Needs Additional Imaging Evaluation Date of Service: 07/01/24Follow Up: Additional Imagi ng Procedure(s): MM tomosynthesis screening BI Accession Number(s): [id number] cc: Sima Kaur EXAMINATION: MM SCREENING DIGITAL [...] signed by Felicia English DO in OV> 07/14/24 194 DD/ 1130 TD/TT: 07/01/24 1149 Die Cutter Apprentice: Sima Kaur MD IMG BI PROCEDURES Edited Resul t - Final * Hepatitis C Antibody with Reflex to HCV, RNA, Quantitative, Real-Time PCR (05/25/2024 11:37 AM EDT) Hepatitis C Antibody Nonreactive Nonreactive [facility] Comment:Antibodies to HCV no t detected; does not exclude early acuteHCV infection. Blood Venous blood specimen / Unknown 05/25/2024 11:37 AM EDT 05/25/2024 1:24 PM EDT Sima Kaur MD LAB BLOOD ORDERABLES Final Res ult [facility] [address] [place] [phone] * (ABNORMAL) Lipid Panel, Standard (11/24/2023 12:45 PM EST) Triglycerides 186(H) <150 mg/dL [facility] Comment:Desirable Triglyceri de: less than 150 mg/dLBorderline High Triglyceride 150-199 mg/dLHigh Triglyceride: 200-499 mg/dLVery High Triglyceride: greater than or equal to 5OO mg/dL Cholesterol 103 <200 mg/dL [facility] Comment:Desirable Cholestero l: less than 200 mg/dLBorderline High Cholesterol: 200-239 mg/dLHigh Cholesterol: greater than 239 mg/dL LDL Cholesterol Calculated 37 <100 mg/dL [facility] Comment:Desirable LDL: less than 100 mg/dLNear Optimal/Above Optimal LDL: 110- 129 mg/dLBorderline High LDL: 130-159 mg/dLHigh LDL: 160-189 mg/dLVery High LDL: greater than or equal to 190 mg/dL HDL Cholesterol 29(L) >40 mg/dL [facility] Comment:Desirable HDL: great er than 40 mg/dL Note: This HDL assay may give artificially low results in patients with liver disease. Blood Venous blood specimen / Unknown 11/24/2023 12:45 PM EST 11/24/2023 1:10 PM EST us Sima Kaur MD LAB BLOOD ORDERABLES Final Res ult [facility] [address] [place] [address] [phone] * HPV mRNA E6/E7 w/Reflex to HPV Genotypes 16, 18/45 (2023 12:00 AM EDT) HPV nRNA E6/E7 Not Detected Not Detected [facility] Comment:Methodology: Transcr iption-Mediated AmplificationThis assay detects E6/E7 viral messenger RNA (mRNA) from 14high-risk HPV types (16,18,31,33,35,39,45,51,52,56,58,59,66,68).Cervical sources are required for HPV testing.If a vaginal source from a patient who has had atotal hysterectomy with removal of cervix wassubmitted, please contact the testing laboratoryfor alternative testing options.For additional information, please refer tohttp://[email or web address]/faq/DKS472h1(This link if provided for information/educational purposes only.)THIS TEST WAS PERFORMED AT:[facility] [employer] [place] [phone] NEWMAN MD HPV mRNA E6/E7 TNP [facility] HPV 16 RNA TNP [facility] HPV 18/45 RNA [facility] 2023 06/16/2023 1:5 0 PM EDT us Sima Kaur MD LAB CYTOLOGY ORDERABLES Final Result [facility] [address] [place] [address] [phone] * Pap Smear (2023) 2023 06/16/2023 1:5 0 PM EDT Narrative [facility] - 06/28/2023 2:14 PM EDT ----- ------- Name: Stephanie Luz ? Age/Sex: 68/F ? : 1955 Unit#: [id number] ?? Attend Dr: Sima Kaur ?Re06/13/23 ?Status: DEP REF ? Location: HO.LNP ?Disch: ? ----- ------- SPEC : [id number] ?RECD: 06/16/23-2670 ? STATUS: ??SOUT ? REQ NUM: [id number] ? CAMI: 06/13/23- ? SUBM DR: Sima [...] 66, 68) ? HPV testing performed by [facility], [place], [place]. ??See reference laboratory ?? portion of the EMR for entire report. ?Clinical Information LMP:Unknown date Previous PAP test:Unknown date/findings ? Material Received ?? ThinPrep-Vaginal/Cervical ----- ------- Signed (signature on file) Lin Colon 06/28/23 1414 ? ----- ------- ? END OF REPORT ? us Sima Kaur MD LAB CYTOLOGY ORDERABLES Final Result [facility] [address] [place] [address] [phone] from Last 3 Months or Most Recently Relevant to Health Maintenance Insurance [facility] [employer] (HMO D-SNP) Care Teams Commercial Housekeeper Relationship Specialty Start Date End Date Sima Kaur MD [address] [place] [phone] PCP - General Family Medicine 11/28/20
--- OUTSIDE RECORDS SUMMARY | 2025-02-20 11:18 | XMS_ITS | Encounter Summary ---
Author Organization [facility] Address [address] [facility] [address] [place] [address] Phone Care Team Providers Care Storyboard Artist Name Role Phone Sima Kaur MD Primary Care Provider [phone] Reason for Visit * Reason Comments Med Refill Encounter Details Date Type Department Care Team (Late Contact Info) Description 07/03/2022 Refill [facility] [address] [place] [phone] [...] Encounters Date Type Department Care Team ([facility] Contact Info) Description 07/04/2025 1:00 PM EDT Office Visit [facility] [address] [place] [phone] Fazal Ohara MD [address] [facility] [address] [place] [address] documented as of this encounter Visit Diagnoses Not on filedocumented in this encounter Care Teams Storyboard Artist Relationship Specialty Start Date End Date Sima Kaur MD [address] [place], [place] [phone] PCP - General Machine Bookkeeper 05/24/21 documented as of this encounter
--- OUTSIDE RECORDS SUMMARY | 2025-02-20 11:18 | XMS_ITS | Encounter Summary ---
Author Organization [facility] Address [address] [facility] 7t [place] [address] Care Team Providers Care District Manager Primary Care Sales Name Role Phone Sima Kaur MD Primary Care Provider Reason for Referral * Consultation (Routine) - Closed Specialty Diagnoses / Procedures Referred By Contradha t Referred To Contact Neurosurgery Diagnoses Cervical spine pain Cervical radiculopathy due to degenerative joint disease of spine Sima Kaur MD [address] [place] [address] Phone: tel: fax: Sheridan Vaelntine MD [address] [place] [address], [address] [place] [address] Phone: tel: fax: Referral ID Status Reason Start Date Expiration Date V isits Requested Visits Authorized [id number] Closed Specialty Services Required 05/28/2024 05/28/2025 1 0 Encounter Details Date Type Department Care Team (Late st Contact Info) Description 05/28/2024 Orders Only [facility] [address] [place], [place] [phone] Sima Kaur MD [address] [place], [place] [phone] Cervical spine pain (Primary Dx); Cervical radiculopathy [...] documented as of this encounter Care Teams District Manager Primary Care Sales Relationship Specialty Start Date End Date Sima Kaur MD [address] [place] [address] PCP - General Family Medicine 11/28/20 documented as of this encounter
--- OUTSIDE RECORDS SUMMARY | 2025-02-20 11:18 | XMS_ITS | Encounter Summary ---
Author Organization [facility] [facility] Address [address] [facility] 7t [place] [address] Care Team Providers Care Childcare Attendant Name Role Phone Sima Kaur MD Primary Care Provider [phone] Reason for Referral * Imaging (Routine) - Authorized Specialty Diagnoses / Procedures Referred By Contac t Referred To Contact Radiology Diagnoses Cervical disc disorder at C4-C5 level with radiculopathy Procedures MR Cervical Spine w/o Contrast Sima Kaur MD [address] [place] [address] Phone: tel: fax: [address] Phone: tel: fax: Referral ID Status Reason Start Date Expiration Date V isits Requested Visits Authorized [id number] Authorized 01/28/2025 01/28/2026 1 1 Encounter Details Date Type Department Care Team (Late st Contact Info) Description 01/28/2025 Orders Only [facility] [address] [place], [place] [phone] Sima Kaur MD [address] [place], [place] [phone] Cervical disc disorder at C4-C5 level with radiculopathy (Primary Dx) Social History Tobacco Use Types [...] of this encounter Plan of Treatment Scheduled Orders Name Type Priority Associated Diagnoses Orde r Schedule MR Cervical Spine w/o Contrast Imaging Routine Cervical disc disorder at C4-C5 level with radiculopathy Expected: 01/28/2025, Expires: 01/28/2026 documented as of this encounter Visit Diagnoses Diagnosis Cervical disc disorder at C4-C5 level with radiculopathy- Primary documented in this encounter Additional Health Concerns Assessment Noted Time PHQ-9 Depression Total Score: 14 025 3:41 PM EDT documented as of this encounter Care Teams Childcare Attendant Relationship Specialty Start Date End Date Sima Kaur MD [address] [place] [address] PCP - General Family Medicine 11/28/20 documented as of this encounter
--- OUTSIDE RECORDS SUMMARY | 2025-02-20 11:18 | XMS_ITS | Encounter Summary ---
Author Organization [employer] [facility] Address [address] [facility] 7t [place] [address] Care Team Providers Care Overedger Name Role Phone Sima Kaur MD Primary Care Provider [phone] Encounter Details Date Type Department Care Team (Late st Contact Info) Description 06/20/2023 Orders Only [facility] [address] [place], [place] [phone] Sima Kaur MD [address] [place], [place] [phone] Poison abraham dermatitis (Primary Dx) Social History [...] documented as of this encounter Care Teams Overedger Relationship Specialty Start Date End Date Sima Kaur MD [address] [place], [place] [phone] PCP - General Family Medicine 11/28/20 documented as of this encounter
--- OUTSIDE RECORDS SUMMARY | 2025-02-20 11:18 | XMS_ITS | Encounter Summary ---
Author Organization [facility] Address [address] [facility] [address] [place] [address] Phone Care Team Providers Care Fish Filleter Name Role Phone Sima Kaur MD Primary Care Provider [phone] Reason for Visit * Reason Comments Med Refill Encounter Details Date Type Department Care Team (Late Contact Info) Description 05/12/2023 Refill [facility] [address] [place] [phone] [...] Upcoming Encounters Date Type Department Care Team ([facility] Contact Info) Description 07/04/2025 1:00 PM EDT Office Visit [facility] [address] [place] [phone] Fazal Ohara MD [address] [facility] [address] [place] [address] documented as of this encounter Visit Diagnoses Not on filedocumented in this encounter Care Teams Fish Filleter Relationship Specialty Start Date End Date Sima Kaur MD [address] [place], [place] [phone] PCP - General Hops Farmworker 05/24/21 documented as of this encounter
--- OUTSIDE RECORDS SUMMARY | 2025-02-20 11:18 | XMS_ITS | Encounter Summary ---
Author Organization [employer] [facility] Address [address] [place] [address] Care Team Providers Care Cable Strander Name Role Phone Sima Kaur MD Primary Care Provider [phone] Reason for Visit * Reason Onset Date Comments Nurse Triage 09/08/2024 ER Follow-up 09/08/2024 Encounter Details Date Type Department Care Team ([facility] st Contact Info) Description 09/08/2024 Telephone [facility] [address] [place], [place] [phone] Sima Kaur MD [address] [place], [place] [phone] Nurse Triage; ER Follow-up Social History Tobacco [...] EST Triage call Pt was seen in [facility] for left ear infection. Pt was prescribed [...] 09/04/24. Pt is advised to come to [facility] today open till 8pm. No available [...] ED visit on : Date: 09/04/24 Hospital: [facility] Seen for: Ear infection Pt stated she is having trouble with the medication prescribed. Pt reported following symptoms earache, swollen grands, and coughing Patient advised will forward to triage nurse. Contact pt at [phone] documented in this encounter Plan of Treatment Not on file documented as of this encounter Visit Diagnoses Not on filedocumented in this encounter Additional Health Concerns Assessment Noted Time PHQ-9 Depression Total Score: 10 024 11:02 AM EDT documented as of this encounter Care Teams Cable Strander Relationship Specialty Start Date End Date Sima Kaur MD [address] [place] [address] PCP - General Family Medicine 11/28/20 documented as of this encounter
== END 2025-02-20 11:15 | disposition home or self-care (01) ==
LOC: HO.MRI 11:14
PROVIDERS: PCP General Practice; Visit Provider General Practice
DX: M50.121 Cervical disc disorder at C4-C5 level with radiculopathy (principal)
CPT/HCPCS: 72141

== ENCOUNTER → 2025-02-20 11:20 | Outpatient (BNV) | payer OTHER, SELFPAY | PROVIDERS: PCP General Practice; Visit Provider Radiology Diagnostic Radiology | DX: M47.812 Spondylosis without myelopathy or radiculopathy, cervical region (principal); M99.61 Osseous and subluxation stenosis of intervertebral foramina of cervical region | CPT/HCPCS: 72141 ==

== ENCOUNTER 2025-02-23 11:36 | Outpatient (AMB) | payer OTHER, SELFPAY ==
--- NOTE | 2025-02-23 12:01 | A.OFFVIS_ITS ---
Vital Signs 02/23/25 12:10 Height 5 ft 1 in Weight 155 lb BMI 29.3 Blood Pressure Location Lt brachial Position Sitting Pulse 76 Pulse Oximetry (%) 98 Oxygen Delivery Method Room Air Intake Visit Reasons: Follow up labs Intake Note: Patient follow up for lab results. Patient cc: swallowing difficulty. Allergies codeine Adverse Reaction (Intermediate, Verified 02/23/25 12:08) vertigo, nausea HPI HPI Follow up labs: Details: Assessment & Plan (1) GERD (gastroesophageal reflux disease): Comment: Resolved with celiac diet Code(s): K21.9 - Gastro-esophageal reflux disease without esophagitis Category: Medical (2) Celiac disease: Code(s): K90.0 - Celiac disease Category: Medical (3) Nausea and vomiting: Code(s): R11.2 - Nausea with vomiting, unspecified Category: Medical (4) Chronic idiopathic constipation: Code(s): K59.04 - Chronic idiopathic constipation Category: Medical Plan She has been having N/V since the EGD with epigastric pain. She aslo is not moving her bowels well on inzess 72mcg, so we will progress to 145mcg. Also adding omeprazole to the famotidine to help calm her stomach. She claims she has been doing her best follows celiac diet but she is concerned about the blunting discovered on biopsy and whether or not there could be hidden sources of gluten sneaking into her diet. To try to help her answer this question we will repeat her TTE GA. Return office visit next available Orders: Orders Transglutaminase Ab IgG Today K90.0 - Celiac disease, R11.2 - Nausea with vomiting, unspecified Medications: New linaclotide (Linzess) Take first thing in the morning with a full glass of water. 145 mcg PO QAM 30 caps 6RF K58.1 - Irritable bowel syndrome with constipation omeprazole 20 mg PO .qamac 30 caps 3RF 30 days K21.9 - Gastro-esophageal reflux disease without esophagitis LABS: Laboratory Tests 01/28/19 10:25 Tiss Transglutamin IgA 15 H TODAY'S VISIT Her epigastric pain is better, Celiac markers high so likely hidden gluten sources....but now she is being more strict with her diet and Googleing ing redients to try to improve her avoidance of gluten. Dysphagia at sternal notch. Responded well in past to dilation. Repeat. She has sleep apnea and denies any other respiratory or cardiac problems. There are no prior problems with anesthesia or sedation. There are no infectious disease problems. ROV 6 mos. [facility] Medical History (Updated 02/23/25 @ 17:20 by LEA Aguilera) Nausea and vomiting Bleeding hemorrhoids Nausea Epigastric pain Hand pain, right Chronic migraine without aura Carpal tunnel syndrome of left wrist Pain of left thumb Numbness and tingling in left hand Carpal tunnel syndrome of right wrist Right arm numbness Arthritis of right shoulder region GERD (gastroesophageal reflux disease) Spondylosis of lumbar spine Diabetes High cholesterol HTN (hypertension) Back pain, chronic Migraines Surgical History S/P carpal tunnel release History of fusion of cervical spine History of carpal tunnel release History of hemorrhoidectomy (~04/01/23) History of esophagogastroduodenoscopy (EGD) Hx of fusion of cervical spine Hx of colonoscopy Hx of cholecystectomy Hx of tubal ligation Family History Father History of heart attack Mother Hx of type 1 diabetes mellitus Family history of high blood pressure Social History Alcohol intake: never Patient Tobacco Use Status: Current everyday Tobacco user Tobacco use type: Cigarette Cigarette Packs Per Day: 0.5 Cigarettes Per Day: 10 Years Smoked: 45 Current occupational status: employed 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 Review of Systems Const Denies fatigue, Denies fever(s), Denies night sweats, Denies poor appetite and Denies weight loss ENT Reports Normal hearing present, Denies dental pain, Reports dysphagia, Denies hearing loss, Denies mouth pain, Denies odynophagia, Denies throat swelling, Denies tongue swelling and Reports other (Dentition adequate) Card Reports no additional complaints Resp Reports no additional complaints GI Details: Denies abdominal pain, Denies melena, Denies bloating, Denies hematochezia, Denies constipation, Denies GI cramping, Reports dysphagia, Denies excessive flatus, Denies early satiety, Reports heartburn, Denies diarrhea, Denies nausea, Denies odynophagia, Denies vomiting and Denies hematemesis Skin/Breast Denies pruritus, Denies lesions, Denies rash and Denies jaundice Neuro Reports Normal hearing present and Denies Abnormal speech present Endo Denies fatigue Aller/Immun Denies throat swelling and Denies tongue swelling Physical Exam Vital Signs: Last Vital Signs Pulse 76 02/23/25 12:10 Pulse Ox 98 02/23/25 12:10 Oxygen Delivery Method Room Air 02/23/25 12:10 BMI result Body Mass Index 29.3 Const General: cooperative, no acute distress, well developed and well groomed Nutritional Appearance: well nourished and overweight Orientation/consciousness: oriented to person, oriented to place and oriented to time Limitations: No language barrier HEENT Head: Yes normocephalic and Yes atraumatic Eyes General: appearance normal, both eyes and all related structures Pupils: Equal, round and reactive pupils present Neck Neck: Yes normal visual inspection and Yes no lymphadenopathy Thyroid: Thyroid normal Resp Effort & Inspection: normal respiratory effort and able to speak in complete sentences Auscultation: clear to auscultation bilaterally Cardio Rate: regular rate Rhythm: regular rhythm Heart sounds: Normal, physiologic split S2 sound present Peripheral pulses: radial pulses present and posterior tibial pulses present GI Inspection: No distended, No Abdominal panniculus present and Yes obesity Palpation (GI): Soft to palpation, nontender, no guarding, not rigid and No hepatosplenomegaly present Percussion: Yes normal to percussion Auscultation: normal bowel sounds Rectal Exam - Female: deferred Skin General skin exam: no rashes or lesions noted, turgor normal, skin not dry, no jaundice, No spider nevi and no striae Rashes: no rashes Nails: normal Neuro General: oriented to person, oriented to place and oriented to time Cranial nerves: Yes Equal, round and reactive pupils present and Yes Normal hearing present Speech: No Abnormal speech present Extrem General: Yes normal to inspection, No clubbing, No cyanosis and No edema Psych Appearance: grossly normal and well kempt Mental Status: mental status grossly normal Speech and movement: Normal speech and movement present Affect: normal affect Attitude: cooperative Thought process: Normal thought process present and not confabulating Thought content: Normal thought content present Insight: Fair insight present (Psych) Judgement: Fair judgement present (Psych) Assessment & Plan Assessment & Plan (1) Dysphagia: Code(s): R13.10 - Dysphagia, unspecified Category: Medical (2) GERD (gastroesophageal reflux disease): Comment: Resolved with celiac diet Code(s): K21.9 - Gastro-esophageal reflux disease without esophagitis Category: Medical (3) Celiac disease: Code(s): K90.0 - Celiac disease Category: Medical (4) Pre-op examination: Code(s): Z01.818 - Encounter for other preprocedural examination Category: Medical Plan Her epigastric pain is better, Celiac markers high so likely hidden gluten sources....but now she is being more strict with her diet and Googleing ingredients to try to improve her avoidance of gluten. Dysphagia at sternal notch. Responded well in past to dilation. Repeat. In all, she had good relief for about 3 months. She has sleep apnea and denies any other respiratory or cardiac problems. There are no prior problems with anesthesia or sedation. There are no infectious disease problems. ROV 6 mos. Orders: Orders EGD - GI Use Only Today R13.10 - Dysphagia, unspecified Coding Level of Care Code Est Pt Level 4 (54720) Diagnoses Dysphagia R13.10 GERD (gastroesophageal reflux disease) K21.9 Celiac disease K90.0 Pre-op examination Z01.818
[2025-02-23 12:10] VITALS: PULSE 76; O2SAT 98; BMI 29.3
--- OUTSIDE RECORDS SUMMARY | 2025-02-23 13:03 | XMS_ITS | Clinical Summary ---
Author Organization [facility]ly [facility] Address [address] [place] [address], [place] [address] Care Team Providers Care Hearing Aid Assembly Supervisor Name Role Phone Sima Kaur MD Primary Care Provider [phone] Allergies Active Allergy Reactions Criticality Noted Date [...] 01/19/2025 Refill [facility] [address] [place], [place] [address] Fazal Ohara MD from Last 3 Months [...] Visit [facility] [address] [place] [address] Fazal Ohara MD [address] [facility] [address] [place] [address] Health Maintenance Due Date Last Done [...] % PVNMA 07/12/2020 us Rtama Conversion LAB [id number] LICITED RESULTS Final Result PVNMA from Last 3 Months or Most Recently Relevant to Health Maintenance Insurance ([id number]) [facility] ([id number]) Care Teams Hearing Aid Assembly Supervisor Relationship Specialty Start Date End Date Sima Kaur MD [address] [place] [address] PCP - General Knockdown Worker 05/24/21
--- OUTSIDE RECORDS SUMMARY | 2025-02-23 13:03 | XMS_ITS | Encounter Summary ---
Author Organization [employer] Address [address] [facility] 7t [place] [address] Care Team Providers Care White Washer Name Role Phone Sima Kaur MD Primary Care Provider [phone] Encounter Details Date Type Department Care Team (Late st Contact Info) Description 01/10/2023 Abstract [facility] [address] [place], [place] [phone] Sima Kaur MD [address] [place], [place] [phone] Social History Tobacco Use Types Packs/Day Years [...] CYTOLOGY ORDERABLES F inal Result [facility] [address], [place] [address] documented in this encounter Visit Diagnoses Not on filedocumented in this encounter Care Teams White Washer Relationship Specialty Start Date End Date Sima Kaur MD [address] [place] [address] PCP - General Family Medicine 11/28/20 documented as of this encounter
--- OUTSIDE RECORDS SUMMARY | 2025-02-23 13:03 | XMS_ITS | Data Portability ---
Author Organization [facility] [facility] [place] [facility] [employer] Address [address] [place] [address] Care Team Providers Care Varnish Maker Helper Name Role Phone HIM CCA OTHER [facility] Primary Care Provider Assessment No assessment [...] Name and Address Organization Details Recorded Time 31108 codeine medicatio n Not available Not available Not available 12/27/2024 2670 RxNorm Not Available [employer] - production 5 15:30:47 Medications Name Sig [...] mm[Hg] 150 mm[Hg] 80 mm[Hg] Not Available [employer] - P[employer] 2 11:44:20 Social History None recorded. Functional [...] Note [address] Red[address] MD Main - [address] [address] 03/04/2022 11:17:35 06/25/2022 15:48:58 Acute low back pain [id number] M54.50 Pt p/w gradual worsening of LBP [...] assessment and plan as documented by the knotting machine operator portable. I provided real time medical direction for this encounter and was immediatel y available to provide additional phone based assistance as needed. Health Concerns Section Related Observation LastModified by Organization Detai ls LastModified Time None Recorded Concern Status LastModified by Organization Details LastModified Time None Recorded Advance Directives Directive None Recorded Payers Insurance Date Sequence Insurance Name Policy Number Policy Quinteros Covered Member ID Quinteros Member ID Guarantor Name 12/27/[address] [facility] - DOS PRIOR TO 2023 - DUAL ELIGIBLE (MEDICARE REPLACEMENT/AD VANTAGE - HMO) Stephanie Luz [id number] Stephanie Luz 12/27/[address] [facility] - DOS ON OR AFTER 2023 - DUAL ELIGIBLE - PENITENTIARY OPTIONS AND ONE CARE (MEDICARE REPLACEMENT/AD VANTAGE - HMO) Stephanie Luz [id number] Stephanie Luz Notes Date Note Type Note Provider Name and Address Organization Details Recorded Time 03/04/2022 text/html HPI: Ax: Amoxicillin, clonidine, potassium claluvanate Patient having lower back pain since Thursday 03/01. Radiating to right leg. No urinary sx. taking Tylenol with mild relief. No numbness or known injury to area. .................. .................. .................. .................. .................. .................. .................. ............... Weather Forecaster Note: Chief Complaint back pain Pertinent positive [...] Fulfilled Ct Redd MD [address] [facility],[address], [place], [address], [place] - CHARLEEN HALE 03/04/2022 12:32:02 OBGyn Episode No OBEpisode recorded.
--- OUTSIDE RECORDS SUMMARY | 2025-02-23 13:04 | XMS_ITS | Encounter Summary ---
Author Organization [facility] Address [address] [facility] [address] [place] [address] Phone Care Team Providers Care Blue Prints Trimmer Name Role Phone Sima Kaur MD Primary Care Provider [phone] Reason for Visit * Reason Comments Med Refill Encounter Details Date Type Department Care Team (Late Contact Info) Description 07/03/2022 Refill [facility] [address] [place] [address] [...] Upcoming Encounters Date Type Department Care Team ([facility] Contact Info) Description 07/04/2025 1:00 PM EDT Office Visit [facility] [address] [place] [address] Fazal Ohara MD [address] [facility] [address] [place] [address] documented as of this encounter Visit Diagnoses Not on filedocumented in this encounter Care Teams Blue Prints Trimmer Relationship Specialty Start Date End Date Sima Kaur MD [address] [place], [place] [phone] PCP - General Bottom Finisher 05/24/21 documented as of this encounter
--- OUTSIDE RECORDS SUMMARY | 2025-02-23 13:04 | XMS_ITS | Encounter Summary ---
Author Organization [employer] Address [address] [place] [address] 7t [place] [address] Care Team Providers Care Manager Home Healthcare Name Role Phone Sima Kaur MD Primary Care Provider [phone] Reason for Referral * Imaging (Routine) - Closed Specialty Diagnoses / Procedures Referred By Jose sweet Referred To Contact Radiology Diagnoses Cervical disc disorder at C4-C5 level with radiculopathy Procedures MR Cervical Spine w/o Contrast Sima Kaur MD [address] [place] [address] Phone: tel: fax: [address] Phone: tel: fax: Referral ID Status Reason Start Date Expiration Date Visits Re quested Visits Authorized [id number] Closed 01/28/2025 01/28/2026 1 1 Encounter Details Date Type Department Care Team (Late st Contact Info) Description 01/28/2025 Orders Only [facility] [address] [place], [place] [phone] Sima Kaur MD [address] [place] [address] Cervical disc disorder at C4-C5 level with [...] Procedure Name Priority Date/Time Associated Diagnosis Comments MR CERVICAL SPINE WO CONTRAST Routine 02/20/2025 11:20 AM EDT Cervical disc disorder at C4-C5 level with radiculopathy documented in this encounter Results * MR Cervical Spine w/o Contrast (02/20/2025 11:20 AM EDT) Anatomical Region Laterality Modality Spine, C-spine Magnetic Resonan ce 02/20/2025 11:2 0 AM EDT Narrative 02/21/2025 12:31 PM EDT ? [facility] ?[address] ?[place] [address] ? Magnetic Resonance Report ? Signed ? Patient: Sukh,Stephanie ?MR#: MM ?? [id number] ? : 1955 ?Acct:[id number] ? Age/Sex: 69 / F ?ADM Date: 02/20/25 ? Loc: HO.MRI ? Attending Dr: Sima Kaur MD ? Ordering Physician: Sima Kaur ?? Date of Service: 02/20/25 ?? Procedure(s): MR cervical spine wo con ?? Accession Number(s): [id number] ? cc: Sima Kaur ? EXAMINATION: ?? MR CERVICAL SPINE WITHOUT CONTRAST ? CLINICAL INFORMATION: ?? Neck pain, radiculopathy. Limited range of motion. ? COMPARISON: ?? None available. ? TECHNIQUE: ?? MRI of the cervical spine was obtained using routine sequences without ?? contrast. ? FINDINGS: ?? Paramagnetic field distortion secondary to metallic hardware at C5-6. ?? Craniocervical junction is intact. ?? No bone marrow STIR signal abnormality. ?? Grade 1 retrolisthesis, C4-5. ?? Grade 1 anterolisthesis C6-7 and likely C7-T1 on a degenerative basis. ?? Cervical spinal cord signal is normal. ? C2-3: ?? No disc herniation. No neuroforamina stenosis. ? C3-4: ?? Central disc osteophyte complex formation resulting in ventral ?? indentation to the thecal sac. No cord compression. Right neuroforamina ?? narrowing on a degenerative basis. ? C4-5: ?? Grade 1 retrolisthesis abutting the cord with CSF effacement of the ?? thecal sac. No cord signal abnormality. Bilateral neuroforamina ?? stenosis. ? C5-6: ?? Postsurgical changes. No cord compression. No neuroforamina stenosis. ? C6-7: ?? Left-sided disc osteophyte complex formation abutting the cord. No cord ?? compression. Left neuroforamina narrowing on a degenerative basis. ? C7-T1: ?? No disc herniation. No neuroforamina stenosis. ? Flow-void signal within the main vessels is normal. Left vertebral ?? artery is slightly dominant. ?? There is fatty signal within the parotid glands. ?? There is a trace of fluid signal within the retropharynx/prevertebral ?? compartment from C2 to C4. ? MR/MR cervical spine wo con ?? IMPRESSION: ?? Cervical spondylosis more conspicuous at C4-5 resulting in central ?? spinal canal stenosis and bilateral neuroforamina stenosis without cord ?? edema and or myelopathy. ?? Trace of fluid signal prevertebral compartment from ?? C2- C4. ? Electronically signed by: ??Tani Marie MD ??02/21/2025 12:28 PM ?? EDT RP ? Dictated By: ?Tani Quezada MD ? Signed By: ?<Electronically signed by Tani Sy MD in OV> ? 02/21/25 1228 ? DD/ 1120 ? TD/TT: 02/20/25 1148 ? Coroner: ? Procedure Note Nimco Martinez - 02/21/2025 [place] [address] Magnetic Resonance Report Signed Patient: Stephanie Luz#: MM [id number] : 1955cct:[id number] Age/Sex: 69 / FADM Date: 02/20/25 Loc: HO.MRI Attending Dr: Sima Kaur MD Ordering Physician: Sima Kaur Date of Service: 02/20/25 Procedure(s): MR cervical spine wo con Accession Number(s): [id number] cc: Sima Kaur EXAMINATION: MR CERVICAL SPINE WITHOUT CONTRAST CLINICAL INFORMATION: Neck pain, radiculopathy. Limited range of motion. COMPARISON: None available. TECHNIQUE: MRI of the cervical spine was obtained using routine sequences without contrast. FINDINGS: Paramagnetic field distortion secondary to metallic hardware at C5-6. Craniocervical junction is intact. No bone marrow STIR signal abnormality. Grade 1 retrolisthesis, C4-5. Grade 1 anterolisthesis C6-7 and likely C7-T1 on a degenerative basis. Cervical spinal cord signal is normal. C2-3: No disc herniation. No neuroforamina stenosis. C3-4: Central disc osteophyte complex formation resulting in ventral indentation to the thecal sac. No cord compression. Right neuroforamina narrowing on a degenerative basis. C4-5: Grade 1 retrolisthesis abutting the cord with CSF effacement of the thecal sac. No cord signal abnormality. Bilateral neuroforamina stenosis. C5-6: Postsurgical changes. No cord compression. No neuroforamina stenosis. C6-7: Left-sided disc osteophyte complex formation abutting the cord. No cord compression. Left neuroforamina narrowing on a degenerative basis. C7-T1: No disc herniation. No neuroforamina stenosis. Flow-void signal within the main vessels is normal. Left vertebral artery is slightly dominant. There is fatty signal within the parotid glands. There is a trace of fluid signal within the retropharynx/prevertebral compartment from C2 to C4. MR/MR cervical spine wo con IMPRESSION: Cervical spondylosis more conspicuous at C4-5 resulting in central spinal canal stenosis and bilateral neuroforamina stenosis without cord edema and or myelopathy. Trace of fluid signal prevertebral compartment from C2- C4. Electronically signed by: Tani Marie MD 02/21/2025 12:28 PM EDT RP Dictated By: Tani Quezada MD Signed By: <Electronically signed by Tani Sy MDin OV> 02/21/25 1228 DD/ 1120 TD/TT: 02/20/25 1148 Coroner: Sima Kaur MD IMG MRI PROCEDURES Final Resul t documented in this encounter Visit Diagnoses Diagnosis Cervical disc disorder at C4-C5 level with radiculopathy- Primary documented in this encounter Additional Health Concerns Assessment Noted Time PHQ-9 Depression Total Score: 14 01/19/ 025 3:41 PM EDT documented as of this encounter Care Teams Manager Home Healthcare Relationship Specialty Start Date End Date Sima Kaur MD [address] [place] [address] PCP - General Family Medicine 11/28/20 documented as of this encounter
--- OUTSIDE RECORDS SUMMARY | 2025-02-23 13:04 | XMS_ITS | Clinical Summary ---
Author Organization [employer] Address [address] [facility] 7t [place] [address] Care Team Providers Care Assistant Shift Supervisor Name Role Phone Sima Kaur MD Primary Care Provider [phone] Allergies Active Allergy Reactions Criticality Noted Date [...] HEADACHE FOR 7 DAYS Active HYDROcodone-yvette taminophen (Hensley) 5-325 MG tablet TAKE 1 TABLET BY [...] complication, without long-term current use of insulin ([facility]) USE 1 SWAB EXTERNALLY TWICE DAILY 100 each 11 025 Active FREESTYLE LITE test stripIndication s:Type 2 diabetes mellitus without complication, without long-term current use of insulin ([facility]) USE 1 STRIP TO CHECK GLUCOSE TWICE DAILY DIRECTED 150 each 3 025 Active hydroCHLOROthia zide (HYDRODiuril) 25 MG tabletIndicatio ns:Essential hypertension TAKE 1 TABLET BY MOUTH IN THE MORNING 90 tablet 3 025 Active clobetasol (Temovate) 0.05 % ointmentIndicat ions:Dermatitis Apply topically 2 times daily. 15 g 1 025 Active D3 25 MCG (1000 UT) capsule Take 1 capsule by mouth once daily 90 capsule 025 Active Tirzepatide (Mounjaro) 2.5 MG/0.5ML solution auto-injectorIn dications:Type 2 diabetes mellitus with diabetic nephropathy, without long-term current use of insulin ([facility]) Inject 2.5 mg under the skin 1 (one) time per week. 2 mL 3 025 Active cyclobenzaprine (Flexeril) 10 MG tabletIndicatio ns:Neck pain Take 1 tablet (10 mg) by mouth if needed in the morning and at bedtime for muscle spasms. 60 tablet 2 025 2024 Active amoxicillin-cla vulanate (Augmentin) 875-125 MG tablet Take 1 tablet by mouth 2 times daily. 024 Active benzonatate (Tessalon) 200 MG capsule Take 1 capsule by mouth every 8 (eight) hours if needed for cough. 024 Active glipiZIDE XL (Glucotrol XL) 10 MG 24 hr tablet TAKE 2 TABLETS BY MOUTH ONCE DAILY WITH BREAKFAST 180 tablet 3 025 Active atenolol (Tenormin) 50 MG tabletIndicatio ns:Primary [...] Much improved with Emgality Continue followup at [facility] neurology Encouraged wear of CPAP for help with SANTIAGO and BP Assessment & Plan (10/15/2022 11:53 AM EST): Much improved with Emgality Continue followup at [facility] neurology Encouraged wear of CPAP for help with SANTIAGO and BP 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 05/24/2021 Assessment & Plan (06/12/2023 8:48 PM EDT): cont boarding house manager followup Assessment & Plan (05/09/2023 10:10 AM EDT): Pt has a follow up with boarding house manager next month Nicotine dependence 05/24/2021 Assessment & [...] of Trulicity secondary to medication availability -called [facility] pharmacy and confirmed Trulicity 1.5 [...] Type Department Care Team Description 02/12/2025 Refill [facility] [address] [place] [address] Sima Kaur MD Primary hypertension 01/28/2025 Orders Only [facility] [address] [place] [address] Sima Kaur MD Cervical disc disorder at C4-C5 level with radiculopathy (Primary Dx) 01/27/2025 Telephone [facility] [address] [place] [address] Sima Kaur MD Referral 01/27/2025 Refill [facility] [address] [place] [address] Sima Kaur MD 01/19/2025 3:15 PM EDT Office Visit [facility] [address] [place] [address] Sima Kaur MD Neck pain (Primary Dx); Type 2 diabetes mellitus without complication, without long-term current use of insulin ([facility]); Dietary counseling; Exercise counseling; Overweight; Depression, recurrent ([facility]); Type 2 diabetes mellitus with diabetic nephropathy, without long-term current use of insulin ([facility]) 01/19/2025 Travel 01/15/2025 Refill [facility] [address] [place] [address] Sima Kaur MD 01/13/2025 Orders Only GENERIC EXTERNAL DATA DEPARTMENT Provider, Generic External Data 01/10/2025 Patient Outreach [facility] [address] [place] [address] Sima Kaur MD Pre-visit Planning (SDOH screening negative and tobacco screening negative) 12/30/2024 Telephone [facility] [address] [place] [address] Sima Kaur MD Results 12/30/2024 Orders Only GENERIC EXTERNAL DATA DEPARTMENT Provider, Generic External Data 12/29/2024 Telephone [facility] [address] [place] [address] Tiarra Bassett, RACHEL Results 12/28/2024 5:20 PM EDT Office Visit [facility] [address] [place] [address] Reina Hernandez MD Neck pain (Primary Dx); Dermatitis 12/22/2024 Refill [facility] [address] [place] [address] Selena Pham, PHARMACIST MANAGER Essential hypertension 12/14/2024 Refill [facility] [address] [place] [address] Sima Kaur MD Type 2 diabetes mellitus without complication, without long-term current use of insulin ([facility]) from Last 3 Months Immunizations Name Administration [...] the past 12 months, has t he [employer], gas, oil or water company threatened to [...] disc disorder at C4-C5 level with radiculopathy POCT GLYCATED HEMOGLOBIN, TOTAL Routine 01/19/2025 3:08 PM EDT Type 2 diabetes mellitus with diabetic nephropathy, without long-term current use of insulin ([facility]) POCT GLUCOSE Routine 01/19/2025 3:08 PM EDT Type 2 diabetes mellitus with diabetic nephropathy, without long-term current use of insulin ([facility]) TISSUE TRANSGLUTAMINASE AB, IGG Routine 01/13/2025 1:05 [...] Recently Relevant to Health Maintenance Results * MR Cervical Spine w/o Contrast (02/20/2025 11:20 AM EDT) Anatomical Region Laterality Modality Spine, C-spine Magnetic Resonan ce 02/20/2025 11:2 0 AM EDT Narrative 02/21/2025 12:31 PM EDT ? [facility] ?[address] ?[place] [address] ? Magnetic Resonance Report ? Signed ? Patient: Stephanie Luz ?MR#: MM ?? [id number] ? : 1955 ?Acct:[id number] ? Age/Sex: 69 / F ?ADM Date: 02/20/25 ? Loc: HO.MRI ? Attending Dr: Sima Kaur MD ? Ordering Physician: Sima Kaur ?? Date of Service: 02/20/25 ?? Procedure(s): MR cervical spine wo con ?? Accession Number(s): [id number] ? cc: Sima Kaur ? EXAMINATION: ?? [...] ?? EDT RP ? Dictated By: ?Tani Quezaad MD ? Signed By: ?<Electronically signed by Tani Marie Yossi, MD in OV> ? 02/21/25 1228 ? DD/ 1120 ? TD/TT: 02/20/25 1148 ? Bilingual Call Center Representative: ? Procedure Note Nimco Martinez - 02/21/2025 [place] [address] Magnetic Resonance Report Signed Patient: Stephanie LuzMR#: MM [id number] : 7Acct:[id number] Age/Sex: 69 / FADM Date: 02/20/25 Loc: HO.MRI Attending Dr: Sima Kaur MD Ordering Physician: Sima Kaur Date of Service: 02/20/25 Procedure(s): MR cervical spine wo con Accession Number(s): [id number] cc: Sima Kaur EXAMINATION: MR CERVICAL SPINE [...] Tani Marie MD 02/21/2025 12:28 PM EDT Dictated By: Tani Quezada MD Signed By: <Electronically signed by Tani yS MDin OV> 02/21/25 1228 DD/ 1120 TD/TT: 02/20/25 1148 Bilingual Call Center Representative: Sima Kaur MD IM MRI PROCEDURES Final Resul t * (ABNORMAL) POCT HGB A1C (01/19/2025 3:08 [...] EDT) Tissue Transglutaminase Antibody IgG 2.1 U/mL [facility] Comment:Value Interpretation ----- <15.0 Antibody not detected> or = 15.0 Antibody detectedTHIS TEST WAS PERFORMED AT:[facility] [address] [phone] NEWMAN MD 01/13/2025 1:05 PM EDT 01/13/2025 1:05 PM EDT Generic External Data Provider LAB BLOOD ORDERAB LES Final Result [facility] [address] [place] [phone] * Hematoxylin and Eosin Stain (12/30/2024 10:58 AM EDT) 12/30/2024 10:5 8 AM EDT 12/30/2024 12:00 PM EDT Femi [facility] - 01/03/2025 1:42 PM EDT ----- ------- Name: Stephanie Luz ? Age/Sex: 69/F ? : 1955 Unit#: [id number] ?? Attend Dr: Johanna Kuo MD ?Re12/30/24 ?Status: DEP SDC ? Location: HO.SSS ?Disch: ? ----- ------- SPEC : [id number] ? RECD: 12/30/24-1200 ? STATUS: ??SOUT ? REQ NUM: [id number] ? CAMI: 12/30/24-1058 ? SUBM DR: Johanna [...] ? Age/Sex: 69/F ? : 1955 Unit#: [id number] ?? Attend Dr: Johanna Kuo MD ?Re12/30/24 ?Status: DEP SDC ? Location: HO.SSS ?Disch: ? ----- ------- SPEC : [id number] ? RECD: 12/30/24-1200 ? STATUS: ??SOUT ? REQ NUM: [id number] ? CAMI: 12/30/24-1058 ? SUBM DR: Johanna [...] Copies To: ?? Sima Kaur ?? [address] ?? [place] [address] ?? [phone] ?? Johanna Kuo MD ?? [facility] ?? [address] ?? [place] [address] ?? [phone] ?? [email or web address] ? CONTINUED ON NEXT PAGE ----- ------- Name: Stephanie Luz ? Age/Sex: 69/F ? : 1955 Unit#: [id number] ?? Attend Dr: Johanna Kuo MD ?Re12/30/24 ?Status: DEP SDC ? Location: HO.SSS ?Disch: ? ----- ------- SPEC : [id number] ? RECD: 12/30/24-1200 ? STATUS: ??SOUT ? REQ NUM: [id number] ? CAMI: 12/30/24-1058 ? SUBM DR: Johanna [...] Provider LAB BLOOD ORDERAB LES Final Result [facility] [address] [place] [address] [phone] * (ABNORMAL) Glucose, Whole Blood (12/30/2024 8:13 AM EDT) Glucose, Whole Blood 203(H) 60 - 115 mg/dL [facility] Comment:METER #: [id number] 12/30/2024 8:13 AM EDT 12/30/2024 8:18 AM EDT us Generic External Data Provider LAB BLOOD ORDERAB LES Final Result [facility] [address] [place] [address] [phone] * XR CERVICAL SPINE 4V (12/29/2024 11:37 AM EDT) Anatomical Region Laterality Modality Abdomen Radiographic Bettye ging 12/29/2024 11:3 7 AM EDT Narrative 12/29/2024 12:34 PM EDT ?[facility] ?[address] ?[place] [address] ?XRay Report ? Signed ? Patient: Sukh,Stephanie ?MR#: MM ?? [id number] ? : 1955 ?Acct:[id number] ? Age/Sex: 69 / F ?ADM Date: 12/29/24 ? Loc: HO.HHCX ? Attending Dr: Reina Hernandez MD ? Ordering Physician: Reina Hernandez MD ?? Date of Service: 12/29/24 ?? Procedure(s): XR cervical spine 4V ?? Accession Number(s): [id number] ? cc: Reina Hernandez MD ? EXAMINATION: [...] DD/ 1137 ? TD/TT: 12/29/24 1200 ? Bilingual Call Center Representative: ? Procedure Note Juan, Image - 12/29/[address] [address] XRay Report Signed Patient: Stephanie LuzMR#: [id number] : 7Acct:[id number] Age/Sex: 69 / FADM Date: 12/29/24 Loc: HO.HHCX Attending Dr: Reina Hernandez MD Ordering Physician: Reina Hernandez MD Date of Service: 12/29/24 Procedure(s): XR cervical spine 4V Accession Number(s): [id number] cc: Reina Hernandez MD EXAMINATION: XR CERVICAL [...] 12/29/24 1231 DD/ 1137 TD/TT: 12/29/24 1200 Bilingual Call Center Representative: us Reina Hernandez MD IMG XR PROCEDURES Final Re sult * BI Mammogram Screening Tomosynthesis Bilateral (07/01/2024 11:30 AM EDT) Anatomical Region Laterality Modality Breast Bilateral Mammography 07/01/2024 11:3 0 AM EDT Narrative 07/14/2024 7:50 PM EDT ? [facility] ? [address] ?[place] [address] ? Mammography Report ? Signed ? Patient: Sukh,Stephanie ?MR#: MM ?? [id number] ? : 1955 ?Acct:[id number] ? Age/Sex: 69 / F ?ADM Date: 07/01/24 ? Loc: HO.MAMMO ? Attending Dr: Sima Kaur MD ? Ordering Physician: Sima Kaur ?Results: 0Incomple ?? te: Needs Additional Imaging Evaluation ? Date of Service: 07/01/24 ?Follow Up: Additional Imagi ?? ng ? Procedure(s): MM tomosynthesis screening BI ?? Accession Number(s): [id number] ? cc: Sima Kaur ? EXAMINATION: ?? [...] DD/ 1130 ? TD/TT: 07/01/24 1149 ? Bilingual Call Center Representative: ? Procedure Note Donotuseinterpreter, Image - [facility] [address] [place] [address] Mammography Report Signed Patient: Stephanie LuzMR#: MM [id number] : 1955cct:[id number] Age/Sex: 69 / FADM Date: 07/01/24 Loc: HO.MAMMO Attending Dr: Sima Kaur MD Ordering Physician: Kleber Kaurults: 0Incomple te: Needs Additional Imaging Evaluation Date of Service: 07/01/24Follow Up: Additional Imagi ng Procedure(s): MM tomosynthesis screening BI Accession Number(s): [id number] cc: Sima Kaur EXAMINATION: MM SCREENING DIGITAL [...] OV> 07/14/241946 DD/ 1130 TD/TT: 07/01/24 1149 Bilingual Call Center Representative: Sima Kaur MD IMG BI PROCEDURES Edited Resul t - Final * Hepatitis C Antibody with Reflex to HCV, RNA, Quantitative, Real-Time PCR (05/25/2024 11:37 AM EDT) Hepatitis C Antibody Nonreactive Nonreactive [facility] Comment:Antibodies to HCV no t detected; does not exclude early acuteHCV infection. Blood Venous blood specimen / Unknown 05/25/2024 11:37 AM EDT 05/25/2024 1:24 PM EDT Sima Kaur MD LAB BLOOD ORDERABLES Final Res ult [facility] [address] [place] [phone] * (ABNORMAL) Lipid Panel, Standard (11/24/2023 12:45 PM EST) Triglycerides 186(H) <150 mg/dL [facility] Comment:Desirable Triglyceri de: less than 150 mg/dLBorderline High Triglyceride 150-199 mg/dLHigh Triglyceride: 200-499 mg/dLVery High Triglyceride: greater than or equal to 5OO mg/dL Cholesterol 103 <200 mg/dL [facility] Comment:Desirable Cholestero l: less than 200 mg/dLBorderline High Cholesterol: 200-239 mg/dLHigh Cholesterol: greater than 239 mg/dL LDL Cholesterol Calculated 37 <100 mg/dL [facility] Comment:Desirable LDL: less than 100 mg/dLNear Optimal/Above Optimal LDL: 110- 129 mg/dLBorderline High LDL: 130-159 mg/dLHigh LDL: 160-189 mg/dLVery High LDL: greater than or equal to 190 mg/dL HDL Cholesterol 29(L) >40 mg/dL [facility] Comment:Desirable HDL: great er than 40 mg/dL Note: This HDL assay may give artificially low results in patients with liver disease. Blood Venous blood specimen / Unknown 11/24/2023 12:45 PM EST 11/24/2023 1:10 PM EST Sima Kaur MD LAB BLOOD ORDERABLES Final Res ult Performing Organization Address [facility] Co de Phone Number [facility] [address] [place] [phone] * HPV mRNA E6/E7 w/Reflex to HPV Genotypes 16, 18/45 (2023 12:00 AM EDT) HPV nRNA E6/E7 Not Detected Not Detected [facility] Comment:Methodology: Transcr iption-Mediated AmplificationThis assay detects E6/E7 viral messenger RNA (mRNA) from 14high-risk HPV types (16,18,31,33,35,39,45,51,52,56,58,59,66,68).Cervical sources are required for HPV testing.If a vaginal source from a patient who has had atotal hysterectomy with removal of cervix wassubmitted, please contact the testing laboratoryfor alternative testing options.For additional information, please refer tohttp://education.[employer]/faq/LGD397e8(This link if provided for information/educational purposes only.)THIS TEST WAS PERFORMED AT:[facility] [place] [phone] NEWMAN MD HPV mRNA E6/E7 TNP [facility] HPV 16 [facility] HPV 18/45 RNA [facility] 2023 06/16/2023 1:5 0 PM EDT Sima Kaur MD LAB CYTOLOGY ORDERABLES Final Result Performing Organization Address [facility] Co de Phone Number [facility] [address] [place] [phone] * Pap Smear (2023) 2023 06/16/2023 1:5 0 PM EDT Narrative [facility] - 06/28/2023 2:14 PM EDT ----- ------- Name: Stephanie Luz ? Age/Sex: 68/F ? : 1955 Unit#: [id number] ?? Attend Dr: Sima Kaur ?Re06/13/23 ?Status: DEP REF ? Location: HO.LNP ?Disch: ? ----- ------- SPEC : [id number] ?RECD: 06/16/23-0010 ? STATUS: ??SOUT ? REQ NUM: [id number] ? CAMI: 06/13/23- ? SUBM DR: Sima Kaur ? ENTERED: ??06/16/23-1451 ?SP TYPE: Pap Smr ?OTHR : ? ORDERED: ??Pap Smear ? Interpretation ?? Satisfactory for evaluation. ?? Negative for intraepithelial lesion or malignancy. ? HPV mRNA E6/E7: ?NOT DETECTED ? This assay detects E6/E7 viral messenger RNA (mRNA) from 14 high-risk HPV types (16, 18, ?? 31, 33, 35, 39, 45, 51, 52, 56, 58, 59, 66, 68) ? HPV testing performed by [employer], [place], [place]. ??See reference laboratory ?? portion of the EMR for entire report. ?Clinical Information LMP:Unknown date Previous PAP test:Unknown date/findings ? Material Received ?? ThinPrep-Vaginal/Cervical ----- ------- Signed (signature on file) Lin Davis Darlene 06/28/23 1414 ? ----- ------- ? END OF REPORT ? us Sima Kaur MD LAB CYTOLOGY ORDERABLES Final Result [facility] [address] [place] [address] [phone] from Last 3 Months or Most Recently Relevant to Health Maintenance Insurance [facility] [employer] (HMO D-SNP) Care Teams Assistant Shift Supervisor Relationship Specialty Start Date End Date Sima Kaur MD [address] [facility] [place] [address] PCP - General Family Medicine 11/28/20
--- OUTSIDE RECORDS SUMMARY | 2025-02-23 13:04 | XMS_ITS | Encounter Summary ---
Author Organization [employer] Address [address] [facility] 7t [place] [address] Care Team Providers Care Weight Loss Consultant Name Role Phone Sima Kaur MD Primary Care Provider [phone] Reason for Visit * Reason Onset Date Comments Nurse Triage 09/08/2024 ER Follow-up 09/08/2024 Encounter Details Date Type Department Care Team ([facility] st Contact Info) Description 09/08/2024 Telephone [facility] [address] [place], [place] [phone] Sima Kaur MD [address] [place], [place] [phone] Nurse Triage; ER Follow-up Social History Tobacco [...] EST Triage call Pt was seen in [facility] for left ear infection. Pt was prescribed [...] 09/04/24. Pt is advised to come to [facility] today open till 8pm. No available [...] ED visit on : Date: 09/04/24 Hospital: [facility] Seen for: Ear infection Pt stated she is having trouble with the medication prescribed. Pt reported following symptoms earache, swollen grands, and coughing Patient advised will forward to triage nurse. Contact pt at [phone] documented in this encounter Plan of Treatment Not on file documented as of this encounter Visit Diagnoses Not on filedocumented in this encounter Additional Health Concerns Assessment Noted Time PHQ-9 Depression Total Score: 10 024 11:02 AM EDT documented as of this encounter Care Teams Weight Loss Consultant Relationship Specialty Start Date End Date Sima Kaur MD [address] [place] [address] PCP - General Family Medicine 11/28/20 documented as of this encounter
--- OUTSIDE RECORDS SUMMARY | 2025-02-23 13:04 | XMS_ITS | Encounter Summary ---
Author Organization [facility] Address [address] [facility] [address] [place] [address] Phone Care Team Providers Care Dump Truck Operator Name Role Phone Sima Kaur MD Primary Care Provider [phone] Reason for Visit * Reason Comments Med Refill Encounter Details Date Type Department Care Team (Late Contact Info) Description 05/12/2023 Refill [facility] [address] [place] [phone] [...] Upcoming Encounters Date Type Department Care Team ([facility] Contact Info) Description 07/04/2025 1:00 PM EDT Office Visit [facility] [address] [place] [address] Fazal Ohara MD [address] [facility] [address] [place] [address] documented as of this encounter Visit Diagnoses Not on filedocumented in this encounter Care Teams Dump Truck Operator Relationship Specialty Start Date End Date Sima Kaur MD [address] [place], [place] [phone] PCP - General Strategic Marketing Specialist 05/24/21 documented as of this encounter
--- OUTSIDE RECORDS SUMMARY | 2025-02-23 13:04 | XMS_ITS | Encounter Summary ---
Author Organization [facility] Address [address] [facility] [address] [place] [address] Phone Care Team Providers Care Instrument Worker Name Role Phone Sima Kaur MD Primary Care Provider + [phone] Reason for Visit * Reason Comments Med Refill Encounter Details Date Type Department Care Team (Late Contact Info) Description 06/11/2023 Refill [facility] [address] [place] [phone] [...] Upcoming Encounters Date Type Department Care Team ([facility] Contact Info) Description 07/04/2025 1:00 PM EDT Office Visit [facility] [address] [place] [address] Fazal Ohara MD [address] [facility] [address] [place] [address] documented as of this encounter Visit Diagnoses Not on filedocumented in this encounter Care Teams Instrument Worker Relationship Specialty Start Date End Date Sima Kaur MD [address] [place], [place] [phone] PCP - General Alpine Guide 05/24/21 documented as of this encounter
--- OUTSIDE RECORDS SUMMARY | 2025-02-23 13:04 | XMS_ITS | Encounter Summary ---
Author Organization [facility] Address [address] [facility] [address] [facility] [address] [place] [address] Phone Care Team Providers Care Coal Pulverizing Operator Name Role Phone Sima Kaur MD Primary Care Provider + [phone] Reason for Visit * Reason Comments Med Refill Encounter Details Date Type Department Care Team (Late Contact Info) Description 06/03/2022 Refill [facility] [place] [address] [facility] [address] [place] [phone] Chester Alves MD [address] [phone] Social History Tobacco Use Types [...] Visit [facility] the [address] [place] [phone] Fazal Ohara MD [address] [phone] documented as of this encounter Visit Diagnoses Not on filedocumented in this encounter Care Teams Coal Pulverizing Operator Relationship Specialty Start Date End Date Sima Kaur MD [address] [place] [address] PCP - General Casing Splitter 05/24/21 documented as of this encounter
--- OUTSIDE RECORDS SUMMARY | 2025-02-23 13:04 | XMS_ITS | Encounter Summary ---
Author Organization [employer] Address [address] [facility] 7t [place] [address] Care Team Providers Care Environmental Specialist Name Role Phone Sima Kaur MD Primary Care Provider [phone] Encounter Details Date Type Department Care Team (Late st Contact Info) Description 06/20/2023 Orders Only [facility] [address] [place], [place] [phone] Sima Kaur MD [address] [place], [place] [phone] Poison abraham dermatitis (Primary Dx) Social History [...] documented as of this encounter Care Teams Environmental Specialist Relationship Specialty Start Date End Date Sima Kaur MD [address] [place], [place] [phone] PCP - General Family Medicine 11/28/20 documented as of this encounter
--- OUTSIDE RECORDS SUMMARY | 2025-02-23 13:04 | XMS_ITS | Encounter Summary ---
Author Organization [employer] Address [address] [facility] 7t [place] [address] Care Team Providers Care Head Strength And Conditioning Coach Name Role Phone Sima Kaur MD Primary Care Provider Reason for Referral * Consultation (Routine) - Closed Specialty Diagnoses / Procedures Referred By Jose t Referred To Contact Neurosurgery Diagnoses Cervical spine pain Cervical radiculopathy due to degenerative joint disease of spine Sima Kaur MD [address] [place] [address] Phone: tel: fax: Sheridan Valentine MD [address] [place] [address], [address] [place] [address] Phone: tel: fax: Referral ID Status Reason Start Date Expiration Date V isits Requested Visits Authorized [id number] Closed Specialty Services Required 05/28/2024 05/28/2025 1 0 Encounter Details Date Type Department Care Team (Late st Contact Info) Description 05/28/2024 Orders Only [facility] [address] [place], [place] [phone] Sima Kaur MD [address] [place] [address] Cervical spine pain (Primary Dx); Cervical radiculopathy [...] documented as of this encounter Care Teams Head Strength And Conditioning Coach Relationship Specialty Start Date End Date Sima Kaur MD [address] [place] [address] PCP - General Family Medicine 11/28/20 documented as of this encounter
== END 2025-02-23 12:49 | disposition home or self-care (01) ==
LOC: HO.HGI 11:37
PROVIDERS: PCP General Practice; Visit Provider Nurse Practitioner
DX: R13.10 Dysphagia, unspecified (principal); K21.9 Gastro-esophageal reflux disease without esophagitis; K90.0 Celiac disease
CPT/HCPCS: 99214

== ENCOUNTER → 2025-02-23 11:36 | Outpatient (BNVA) | payer OTHER, SELFPAY | PROVIDERS: PCP General Practice; Visit Provider Nurse Practitioner | DX: Z01.818 Encounter for other preprocedural examination (principal); K21.9 Gastro-esophageal reflux disease without esophagitis; K59.04 Chronic idiopathic constipation; R13.10 Dysphagia, unspecified; K59.00 Constipation, unspecified | CPT/HCPCS: 99212 ==

== ENCOUNTER 2025-03-10 12:50 | Outpatient (AMB) | payer OTHER, SELFPAY ==
--- OUTSIDE RECORDS SUMMARY | 2025-03-10 12:53 | XMS_ITS | Encounter Summary ---
Author Organization [employer] Address [address] [place] [address] [address] Care Team Providers Care Milking Machine Mechanic Name Role Phone Sima Kaur MD Primary Care Provider [phone] Reason for Referral * Consultation (Routine) - Closed Specialty Diagnoses / Procedures Referred By Contac t Referred To Contact Neurosurgery Diagnoses Cervical spine pain Cervical radiculopathy due to degenerative joint disease of spine Sima Kaur MD [address] [place] [address] Phone: tel: fax: Sheridan Valentine MD [address] [place] [address], [address] [place] [address] Phone: tel: fax: Referral ID Status Reason Start Date Expiration Date V isits Requested Visits Authorized [id number] Closed Specialty Services Required 05/28/2024 05/28/2025 1 0 Encounter Details Date Type Department Care Team (Late st Contact Info) Description 05/28/2024 Orders Only [facility] [address] [place], [place] [phone] Sima Kaur MD [address] [place], [place] [phone] Cervical spine pain (Primary Dx); Cervical radiculopathy [...] documented as of this encounter Care Teams Milking Machine Mechanic Relationship Specialty Start Date End Date Sima Kaur MD [address] [place] [address] PCP - General Family Medicine 11/28/20 documented as of this encounter
--- OUTSIDE RECORDS SUMMARY | 2025-03-10 12:53 | XMS_ITS | Encounter Summary ---
Author Organization [facility] Address [address] [facility] [address] [place] [address] Phone Care Team Providers Care Enameler Name Role Phone Sima Kaur MD Primary Care Provider + [phone] Reason for Visit * Reason Comments Med Refill Encounter Details Date Type Department Care Team (Late Contact Info) Description 06/03/2022 Refill [facility] [address] [facility] [address] [place] [phone] Chester Alves MD [address] [phone] Social History Tobacco Use Types Packs/Day Years Used Date Smoking Tobacco: Every Day Cigarettes 0.5 42.4 Started: 10/20/1982 Smokeless Tobacco: Never Alcohol Use [...] [facility] [address] [place] [phone] Fazal Ohara MD [address] [phone] documented as of this encounter Visit Diagnoses Not on filedocumented in this encounter Care Teams Enameler Relationship Specialty Start Date End Date Sima Kaur MD [address] [place] [address] PCP - General Tree Planter 05/24/21 documented as of this encounter
--- OUTSIDE RECORDS SUMMARY | 2025-03-10 12:53 | XMS_ITS | Encounter Summary ---
Author Organization [facility] Address [address] [facility] 200 [place] [address] Phone Care Team Providers Care Security Door Installer Name Role Phone Sima Kaur MD Primary Care Provider + [phone] Reason for Visit * Reason Comments Med Refill Encounter Details Date Type Department Care Team (Late Contact Info) Description 05/12/2023 Refill [facility] [address] [place] [phone] [...] Upcoming Encounters Date Type Department Care Team ([facility] Contact Info) Description 07/04/2025 1:00 PM EDT Office Visit [facility] [address] [place] [phone] Fazal Ohara MD [address] [facility] [address] [place] [address] documented as of this encounter Visit Diagnoses Not on filedocumented in this encounter Care Teams Security Door Installer Relationship Specialty Start Date End Date Sima Kaur MD [address] [place], [place] [phone] PCP - General Graphics Specialist 05/24/21 documented as of this encounter
--- OUTSIDE RECORDS SUMMARY | 2025-03-10 12:53 | XMS_ITS | Encounter Summary ---
Author Organization [facility] Address [address] [facility] [address] [place] [address] Phone Care Team Providers Care Shop Manager Name Role Phone Sima Kaur MD Primary Care Provider + [phone] Reason for Visit * Reason Comments Med Refill Encounter Details Date Type Department Care Team (Late Contact Info) Description 07/03/2022 Refill [facility] [address] [place] [phone] [...] Upcoming Encounters Date Type Department Care Team ([facility] Contact Info) Description 07/04/2025 1:00 PM EDT Office Visit [facility] [address] [place] [phone] Fazal Ohara MD [address] [facility] [address] [place] [address] documented as of this encounter Visit Diagnoses Not on filedocumented in this encounter Care Teams Shop Manager Relationship Specialty Start Date End Date Sima Kaur MD [address] [place], [place] [phone] PCP - General Retail Shift Supervisor 05/24/21 documented as of this encounter
--- OUTSIDE RECORDS SUMMARY | 2025-03-10 12:53 | XMS_ITS | Encounter Summary ---
Author Organization [employer] Address [address] [facility] [address] 7[address] [place] [address] Care Team Providers Care Bag Loader Name Role Phone Sima Kaur MD Primary Care Provider [phone] Encounter Details Date Type Department Care Team (Late st Contact Info) Description 03/07/2025 Orders Only [facility] [address] [place], [place] [phone] Sima Kaur MD [address] [place], [place] [phone] Social History Tobacco Use Types Packs/Day Years [...] Procedure Name Priority Date/Time Associated Diagnosis Comments COLONOSCOPY Routine 12/18/2022 documented in this encounter Results * Colonoscopy (12/18/2022) Anatomical Region Laterality Modality Endoscopy Impressions 12/18/202212/2022 Had a TA x 2 + hyperplastic polyp us Historical Provider ENDOSCOPY PROCEDURE ORDER RICARDO Final Result documented in this encounter Visit Diagnoses Not on filedocumented in this encounter Additional Health Concerns Assessment Noted Time PHQ-9 Depression Total Score: 14 025 3:41 PM EDT documented as of this encounter Care Teams Bag Loader Relationship Specialty Start Date End Date Sima Kaur MD [address] [place] [address] PCP - General Family Medicine 11/28/20 documented as of this encounter
--- OUTSIDE RECORDS SUMMARY | 2025-03-10 12:53 | XMS_ITS | Encounter Summary ---
Author Organization [employer] Address [address] [place] [address] 7 [place] [address] Care Team Providers Care Gliding Pilot Instructor Name Role Phone Sima Kaur MD Primary Care Provider [phone] Encounter Details Date Type Department Care Team ([facility] st Contact Info) Description 06/20/2023 Orders Only [facility] [address] [place], [place] [phone] Sima Kaur MD [address] [place], [place] [phone] Poison abraham dermatitis (Primary Dx) Social History [...] documented as of this encounter Care Teams Gliding Pilot Instructor Relationship Specialty Start Date End Date Sima Kaur MD [address] [place] [address] PCP - General Family Medicine 11/28/20 documented as of this encounter
--- OUTSIDE RECORDS SUMMARY | 2025-03-10 12:53 | XMS_ITS | Clinical Summary ---
Author Organization [employer] Address [address] [place] [address] 7 [place] [address] Care Team Providers Care Goggles Assembler Name Role Phone Sima Kaur MD Primary Care Provider [phone] Allergies Active Allergy Reactions Criticality Noted Date [...] HEADACHE FOR 7 DAYS Active HYDROcodone-yvette taminophen (Sheldon) 5-325 MG tablet TAKE 1 TABLET BY [...] without long-term current use of insulin ([facility]) USE 1 SWAB EXTERNALLY TWICE DAILY 100 each 11 Active FREESTYLE LITE test stripIndication s:Type 2 diabetes mellitus without complication, without long-term current use of insulin ([facility]) USE 1 STRIP TO CHECK GLUCOSE [...] nephropathy, without long-term current use of insulin ([facility]) Inject 2.5 mg under the skin [...] 8 (eight) hours if needed for cough. Active glipiZIDE XL (Glucotrol XL) 10 MG 24 hr tablet TAKE 2 TABLETS BY MOUTH ONCE DAILY WITH BREAKFAST 180 tablet 3 Active atenolol (Tenormin) 50 MG tabletIndicatio ns:Primary hypertension TAKE 1 & 1/2 (ONE & ONE-HALF) TABLETS BY MOUTH ONCE DAILY 135 tablet 3 025 Active atenolol (Tenormin) 50 [...] Much improved with Emgality Continue followup at [facility] Encouraged wear of CPAP for help with SANTIAGO and BP Assessment & Plan (10/15/2022 11:53 AM EST): Much improved with Emgality Continue followup at [facility] Encouraged wear of CPAP for help with SANTIAGO and BP 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 05/24/2021 Assessment & Plan (06/12/2023 8:48 PM EDT): cont [facility] followup Assessment & Plan (05/09/2023 10:10 AM EDT): Pt has a follow up with [facility] next month Nicotine dependence 05/24/2021 Assessment & [...] abdominal pain and nausea, and switch to Jalil PA will be submitted due to intolerance [...] of Trulicity secondary to medication availability -called [facility] pharmacy and confirmed Trulicity 1.5 mg [...] Encounters Date Type Department Care Team Description 03/07/2025 Orders Only [facility] [address] [place] [address] Sima Kaur MD 02/12/2025 Refill [facility] [address] [place] [address] Sima Kaur MD Primary hypertension 01/28/2025 Orders Only [facility] [address] [place] [address] Sima Kaur MD Cervical disc disorder at C4-C5 level with radiculopathy (Primary Dx) 01/27/2025 Telephone [facility] [address] [place] [address] Sima Kaur MD Referral 01/27/2025 Refill [facility] [address] [place] [address] Sima Kaur MD 01/19/2025 3:15 PM EDT Office Visit [facility] [address] [place] [address] Sima Kaur MD Neck pain (Primary Dx); Type 2 diabetes mellitus without complication, without long-term current use of insulin ([facility]); Dietary counseling; Exercise counseling; Overweight; Depression, recurrent ([facility]); Type 2 diabetes mellitus with diabetic nephropathy, without long-term current use of insulin ([facility]) 01/19/2025 Travel 01/15/2025 Refill [facility] [address] [place] [address] Sima Kaur MD 01/13/2025 Orders Only GENERIC EXTERNAL DATA DEPARTMENT Provider, Generic External Data 01/10/2025 Patient Outreach [facility] [address] [place] [address] Sima Kaur MD Pre-visit Planning (SDOH screening negative and tobacco screening negative) 12/30/2024 Telephone [facility] [address] [place] [address] Sima Kaur MD Results 12/30/2024 Orders Only GENERIC EXTERNAL DATA DEPARTMENT Provider, Generic External Data 12/29/2024 Telephone [facility] [address] [place] [address] Tiarra Bassett, RACHEL Results 12/28/2024 5:20 PM EDT Office Visit [facility] [address] [place] [address] Reina Hernandez MD Neck pain (Primary Dx); Dermatitis 12/22/2024 Refill [facility] [address] [place] [address] AnkitSelena loza, MANAGER MALL Essential hypertension 12/14/2024 Refill [facility] [address] [place] [address] Sima Kaur MD Type 2 diabetes mellitus without complication, without long-term current use of insulin ([facility]) from Last 3 Months Immunizations Immunization Administration Dates Next Due Hep B, adult [...] Td or Tdap) 11/18/2022 11/18/2012, 10/18/2008, 10/06/1996 Influenza Vaccine (#1) 2024 , 07/19/2022, 07/19/2022, Additional history exists Lipid Panel 11/24/2024 11/24/2023, 09/20, 01/29/2021, Additional history exists COVID-19 Vaccine ( season) 2025 08/16/2024, 05/28/2022, 09/26/2021, Additional history exists Diabetes: Foot Exam 03/08/2025 03/08/2024, 03/08/2024, 03/08/2024, Additional history exists Alcohol/Substance Use Screening 05/25/2025 05/25/2024 Mammogram 07/01/2025 07/01/2024, 02/2023, 03/24/2023, Additional history exists Diabetes: Hemoglobin A1C 07/21/2025 025, 08/16/2024, 05/25/2024, Additional history exists SDOH Screening 01/10/2026 01/10/2025 Depression Screening 01/19/2026 01/19/2025, 01/20/20 Tobacco Screening 01/19/2026 01/19/2025 Colonoscopy 12/19/2027 12/18/2022 Colorectal Cancer Screening 01/17/2028 Postponed from 1955 (Other Medical Reasons) Pap Smear 2028 2023, 06/21, 07/11/2020 Hepatitis B Vaccines Completed 08/18/2018, 02/13/2018, 04/04/2016 Zoster Vaccines Completed 10/31/2021, 11/0 02/2021, 08/06/2017 Pneumococcal Vaccine: 50+ Years Completed 05/09/2023, 10/28/2017 HPV/Cotest Discontinued 2023, 07/11/2020 RSV Patients and Patients Aged 60 years or older Completed 11/28/2023 Hepatitis C Screening Completed 05/25/2024 HIB Vaccines Aged Out No longer eligi [...] patient's age to complete this topic Meningococcal B Vaccine Aged Out No l onger eligible based on patient's age to complete [...] nephropathy, without long-term current use of insulin ([facility]) POCT GLUCOSE Routine 01/19/2025 3:08 PM EDT Type 2 diabetes mellitus with diabetic nephropathy, without long-term current use of insulin ([facility]) TISSUE TRANSGLUTAMINASE AB, IGG Routine 01/13/2025 [...] without long-term current use of insulin ([facility]) HPV MRNA E6/E7 REFLEX TO HPV 16, 18/45 Routine 2023 12:00 AM EDT PAP SMEAR Routine 2023 COLONOSCOPY Routine 12/18/2022 from Last 3 Months or Most Recently Relevant to Health Maintenance Results * MR Cervical Spine w/o Contrast (02/20/2025 11:20 AM EDT) Anatomical Region Laterality Modality Spine, C-spine Magnetic Resonan ce 02/20/2025 11:2 0 AM EDT Narrative 02/21/2025 12:31 PM EDT ? [facility] ?[address] ?[place] [address] ? Magnetic Resonance Report ? Signed ? Patient: Stephanie Luz ?MR#: MM ?? [id number] ? : 1955 ?Acct:[id number] ? Age/Sex: 69 / F ?ADM Date: 02/20/25 ? Loc: HO.MRI ? Attending Dr: Sima Kaur MD ? Ordering Physician: Sima Kaur ?? Date of Service: 02/20/25 ?? Procedure(s): MR cervical spine wo con ?? Accession Number(s): [id number] ? cc: Sima Kaur ? EXAMINATION: ?? [...] Marie MD ??02/21/2025 12:28 PM ?? EDT ? Dictated By: ?Tani Quezada MD ? Signed By: ?<Electronically signed by Tani Sy MD in OV> ? 02/21/25 1228 ? DD/ 1120 ? TD/TT: 02/20/25 1148 ? Cable Rigger: ? Procedure Note Nimco Martinez - 02/21/[address] [address] Magnetic Resonance Report Signed Patient: Stephanie LuzMR#: MM [id number] : 7Acct:[id number] Age/Sex: 69 / FADM Date: 02/20/25 Loc: .MRI Attending Dr: Sima Kaur MD Ordering Physician: Sima Kaur Date of Service: 02/20/25 Procedure(s): MR cervical spine wo con Accession Number(s): [id number] cc: Sima Kaur EXAMINATION: MR CERVICAL SPINE [...] 02/21/25 1228 DD/ 1120 TD/TT: 02/20/25 1148 Cable Rigger: Sima Kaur MD IMG MRI PROCEDURES Final Resul t * (ABNORMAL) POCT HGB A1C (01/19/2025 3:08 PM EDT) Hemoglobin A1C 6.8(A) 4.0 - 6.0 % QC Media Lot # [id number] Lot# Expiration Date Blood 01/19/2025 3:08 PM EDT Result [facility] Sima Kaur MD POINT OF CARE TEST ENTER/EDIT ORDERABLES Final Result * POCT Glucose (01/19/2025 3:08 PM EDT) Glucose Blood, POC 97 60 - 200 mg/dL QC Media Lot # [id number] Lot# Expiration Date Blood Capillary blood specimen / Unknown 01/19/2025 3:08 PM EDT Result [facility] Sima Kaur MD POINT OF CARE TEST ENTER/EDIT ORDERABLES Final Result * Tissue Transglutaminase (tTG) Antibody (IgG) (01/13/2025 1:05 PM EDT) Pathologist [facility] Tissue Transglutaminase Antibody IgG 2.1 U/mL [facility] Comment:Value Interpretation ----- <15.0 Antibody not detected> or = 15.0 Antibody detectedTHIS TEST WAS PERFORMED AT:[facility] [place] [phone] NEWMAN MD 01/13/2025 1:05 PM EDT 01/13/2025 1:05 PM EDT Generic External Data Provider LAB BLOOD ORDERAB LES Final Result [facility] [address] [place] [address] [phone] * Hematoxylin and Eosin Stain (12/30/2024 10:58 AM EDT) 12/30/2024 10:5 8 AM EDT 12/30/2024 12:00 PM EDT Narrative [facility] - 01/03/2025 1:42 PM EDT ----- ------- Name: Stephanie Luz ? Age/Sex: 69/F ? : 1955 Unit#: [id number] ?? Attend Dr: Johanna Kuo MD ?Re12/30/24 ?Status: DEP SDC ? Location: HO.SSS ?Disch: ? ----- ------- SPEC : [id number] ? RECD: 12/30/24-1200 ? STATUS: ??SOUT ? REQ NUM: [id number] ? CAMI: 12/30/24-1058 ? SUBM DR: Johanna [...] ? Age/Sex: 69/F ? : 1955 Unit#: [id number] ?? Attend Dr: Johanna Kuo MD ?Re12/30/24 ?Status: DEP SDC ? Location: HO.SSS ?Disch: ? ----- ------- SPEC : [id number] ? RECD: 12/30/24-1200 ? STATUS: ??SOUT ? REQ NUM: [id number] ? CAMI: 12/30/24-1058 ? SUBM DR: Johanna [...] Copies To: ?? Sima Kaur ?? [address] ?? [place] [address] ?? [phone] ?? Johanna Kuo MD ?? [facility] ?? [address] ?? [place] [address] ?? [phone] ?? [email or web address] ? CONTINUED ON NEXT PAGE ----- ------- Name: Stephanie Luz ? Age/Sex: 69/F ? : 1955 Unit#: [id number] ?? Attend Dr: Johanna Kuo MD ?Re12/30/24 ?Status: DEP NHC ? Location: HO.SSS ?Disch: ? ----- ------- SPEC : [id number] ? RECD: 12/30/24-1199 ? STATUS: ??SOUT ? REQ NUM: [id number] ? CAMI: 12/30/24-1058 ? SUBM DR: Johanna Kuo MD ? ENTERED: ??12/30/24-5 ?SP TYPE: Surgical ? OTHR DR: Sima Kaur ? ORDERED: ??HE Stain/15, Gross Micro L4/5, IHC, Special st. 2/3, H. pylori, AB/PAS/3 ? ----- ------- Signed (signature on file) Fernando De MD 01/03/25 9542 ? ----- ------- ? END OF REPORT ? us Generic External Data Provider LAB BLOOD ORDERAB LES Final Result [facility] [address] [place] [address] [phone] * (ABNORMAL) Glucose, Whole Blood (12/30/2024 8:13 AM EDT) Glucose, Whole Blood 203(H) 60 - 115 mg/dL [facility] Comment:METER #: [id number] 12/30/2024 8:13 AM EDT 12/30/2024 8:18 AM EDT us Generic External Data Provider LAB BLOOD ORDERAB LES Final Result [facility] [address] [place] [address] [phone] * XR CERVICAL SPINE 4V (12/29/2024 11:37 AM EDT) Anatomical Region Laterality Modality Abdomen Radiographic Bettye ging 12/29/2024 11:3 7 AM EDT Narrative 12/29/2024 12:34 PM EDT ?[facility] ?[address] ?[place] [address] ?XRay Report ? Signed ? Patient: Stephanie Luz ?MR#: MM ?? [id number] ? : 1955 ?Acct:[id number] ? Age/Sex: 69 / F ?ADM Date: 12/29/24 ? Loc: HO.HHCX ? Attending Dr: Reina Hernandez MD ? Ordering Physician: Reina Hernandez MD ?? Date of Service: 12/29/24 ?? Procedure(s): XR cervical spine 4V ?? Accession Number(s): [id number] ? cc: Reina Hernandez MD ? EXAMINATION: [...] MD ? Signed By: ?<Electronically signed by Tain Sy MD in OV> ? 12/29/24 1231 ? DD/ 1137 ? TD/TT: 12/29/24 1200 ? Cable Rigger: ? Procedure Note Donzora, Image - 12/29/[address] [address] XRay Report Signed Patient: Guillermo Luz#: MM [id number] : 7Acct:[id number] Age/Sex: 69 / FADM Date: 12/29/24 Loc: HO.HHCX Attending Dr: Reina Hernandez MD Ordering Physician: Reina Hernandez MD Date of Service: 12/29/24 Procedure(s): XR cervical spine 4V Accession Number(s): [id number] cc: Reina Hernandez MD EXAMINATION: XR CERVICAL [...] 12/29/24 1231 DD/ 1137 TD/TT: 12/29/24 1200 Cable Rigger: Reina Hernandez MD IMG XR PROCEDURES Final Re sult * BI Mammogram Screening Tomosynthesis Bilateral (07/01/2024 11:30 AM EDT) Anatomical Region Laterality Modality Breast Bilateral Mammography 07/01/2024 11:3 0 AM EDT Narrative 07/14/2024 7:50 PM EDT ? [facility] ? [address] ?[place] [address] ? Mammography Report ? Signed ? Patient: Sukh,Stephanie ?MR#: MM ?? [id number] ? : 1955 ?Acct:[id number] ? Age/Sex: 69 / F ?ADM Date: 09/12/24 ? Loc: HO.MAMMO ? Attending Dr: Sima Kaur MD ? Ordering Physician: Sima Kaur ?Results: 0Incomple ?? te: Needs Additional Imaging Evaluation ? Date of Service: 07/01/24 ?Follow Up: Additional Imagi ?? ng ? Procedure(s): MM tomosynthesis screening BI ?? Accession Number(s): [id number] ? cc: Sima Kaur ? EXAMINATION: ?? [...] DD/ 1130 ? TD/TT: 07/01/24 1149 ? Cable Rigger: ? Procedure Note Donzora, Nimco - 07/14/2024 [facility] [address] [place] [address] Mammography Report Signed Patient: Stephanie LuzMR#: MM [id number] : 1955cct:[id number] Age/Sex: 69 / FADM Date: 07/01/24 Loc: HO.MAMMO Attending Dr: Sima Kaur MD Ordering Physician: Kleber Kaurults: 0Incomple te: Needs Additional Imaging Evaluation Date of Service: 07/01/24Follow Up: Additional Imagi ng Procedure(s): MM tomosynthesis screening BI Accession Number(s): [id number] cc: Sima Kaur EXAMINATION: MM SCREENING DIGITAL [...] OV> 07/14/241946 DD/ 1130 TD/TT: 07/01/24 1149 Cable Rigger: Sima Kaur MD IMG BI PROCEDURES Edited Resul t - Final * Hepatitis C Antibody with Reflex to HCV, RNA, Quantitative, Real-Time PCR (05/25/2024 11:37 AM EDT) Hepatitis C Antibody Nonreactive Nonreactive [facility] Comment:Antibodies to HCV no t detected; does not exclude early acuteHCV infection. Blood Venous blood specimen / Unknown 05/25/2024 11:37 AM EDT 05/25/2024 1:24 PM EDT Sima Kaur MD LAB BLOOD ORDERABLES Final Res ult [facility] [address] [place], [place] [phone] * (ABNORMAL) Lipid Panel, Standard (11/24/2023 12:45 PM EST) Triglycerides 186(H) <150 mg/dL [facility] Comment:Desirable Triglyceri de: less than 150 mg/dLBorderline High Triglyceride 150-199 mg/dLHigh Triglyceride: 200-499 mg/dLVery High Triglyceride: greater than or equal to 5OO mg/dL Cholesterol 103 <200 mg/dL [facility] Comment:Desirable Cholestero l: less than 200 mg/dLBorderline High Cholesterol: 200-239 mg/dLHigh Cholesterol: greater than 239 mg/dL LDL Cholesterol Calculated 37 <100 mg/dL [facility] Comment:Desirable LDL: less than 100 mg/dLNear Optimal/Above Optimal LDL: 110- 129 mg/dLBorderline High LDL: 130-159 mg/dLHigh LDL: 160-189 mg/dLVery High LDL: greater than or equal to 190 mg/dL HDL Cholesterol 29(L) >40 mg/dL [facility] Comment:Desirable HDL: great er than 40 mg/dL Note: This HDL assay may give artificially low results in patients with liver disease. Blood Venous blood specimen / Unknown 11/24/2023 12:45 PM EST 11/24/2023 1:10 PM EST us Sima Kaur MD LAB BLOOD ORDERABLES Final Res ult [facility] [address] [place] [phone] * HPV mRNA E6/E7 w/Reflex to HPV Genotypes 16, 18/45 (2023 12:00 AM EDT) HPV nRNA E6/E7 Not Detected Not Detected [facility] Comment:Methodology: Transcr iption-Mediated AmplificationThis assay detects E6/E7 viral messenger RNA (mRNA) from 14high-risk HPV types (16,18,31,33,35,39,45,51,52,56,58,59,66,68).Cervical sources are required for HPV testing.If a vaginal source from a patient who has had atotal hysterectomy with removal of cervix wassubmitted, please contact the testing laboratoryfor alternative testing options.For additional information, please refer tohttp://education.[employer]/faq/CVQ014b1(This link if provided for information/educational purposes only.)THIS TEST WAS PERFORMED AT:[facility] [place] [phone] NEWMAN MD HPV mRNA E6/E7 TNP [facility] HPV 16 RNA TNP [facility] HPV 18/45 RNA [facility] 2023 06/16/2023 1:5 0 PM EDT us Sima Kaur MD LAB CYTOLOGY ORDERABLES Final Result [facility] [address] [place] [phone] * Pap Smear (2023) 2023 06/16/2023 1:5 0 PM EDT Narrative [facility] - 06/28/2023 2:14 PM EDT ----- ------- Name: Stephanie Luz ? Age/Sex: 68/F ? : 1955 Unit#: [id number] ?? Attend Dr: Sima Kaur ?Re06/13/23 ?Status: DEP REF ? Location: HO.LNP ?Disch: ? ----- ------- SPEC : [id number] ?RECD: 06/16/23-1350 ? STATUS: ??SOUT ? REQ NUM: [id number] ? CAMI: 06/13/23- ? SUBM DR: Sima [...] 66, 68) ? HPV testing performed by [facility], [place], [place]. ??See reference laboratory ?? portion of the EMR for entire report. ?Clinical Information LMP:Unknown date Previous PAP test:Unknown date/findings ? Material Received ?? ThinPrep-Vaginal/Cervical ----- ------- Signed (signature on file) Lin Colon 06/28/23 1414 ? ----- ------- ? END OF REPORT ? Sima Kaur MD LAB CYTOLOGY ORDERABLES Final Result Performing Organization Address City/State/[facility] Co de Phone Number [facility] [address] [place] [address] [phone] * Colonoscopy (12/18/2022) Anatomical Region Laterality Modality Endoscopy Impressions 12/18/202212/2022 Had a TA x 2 + hyperplastic polyp Historical Provider ENDOSCOPY PROCEDURE ORDER RICARDO Final Result from Last 3 Months or Most Recently Relevant to Health Maintenance Insurance [facility] [employer] (HMO D-SNP) Care Teams Goggles Assembler Relationship Specialty Start Date End Date Sima Kaur MD [address] [place] [address] PCP - General Family Medicine 11/28/20
--- OUTSIDE RECORDS SUMMARY | 2025-03-10 12:53 | XMS_ITS | Encounter Summary ---
Author Organization [email or web address] Address [address] [place] [address] 7[address] [place] [address] Care Team Providers Care Brand Communications Manager Name Role Phone Sima Kaur MD Primary Care Provider [phone] Encounter Details Date Type Department Care Team (Late st Contact Info) Description 01/10/2023 Abstract [facility] [address] [place], [place] [phone] Sima Kaur MD [address] [place], [place] [phone] Social History Tobacco Use Types Packs/Day Years [...] CYTOLOGY ORDERABLES F inal Result [facility] [address], [place] [address] documented in this encounter Visit Diagnoses Not on filedocumented in this encounter Care Teams Brand Communications Manager Relationship Specialty Start Date End Date Siam Kaur MD [address] [place] [phone] PCP - General Family Medicine 11/28/20 documented as of this encounter
--- OUTSIDE RECORDS SUMMARY | 2025-03-10 12:53 | XMS_ITS | Encounter Summary ---
Author Organization [employer] Address [address] [place] [address] 7 [place] [address] Care Team Providers Care Blow Mold Operator Name Role Phone Sima Kaur MD Primary Care Provider [phone] Reason for Visit * Reason Onset Date Comments Nurse Triage 09/08/2024 ER Follow-up 09/08/2024 Encounter Details Date Type Department Care Team ([facility] st Contact Info) Description 09/08/2024 Telephone [facility] [address] [place], [place] [phone] Sima Kaur MD [address] [place], [place] [phone] Nurse Triage; ER Follow-up Social History Tobacco [...] EST Triage call Pt was seen in [facility] for left ear infection. Pt was prescribed [...] ED visit on : Date: 09/04/24 Hospital: [facility] Seen for: Ear infection Pt stated she is having trouble with the medication prescribed. Pt reported following symptoms earache, swollen grands, and coughing Patient advised will forward to triage nurse. Contact pt at [phone] documented in this encounter Plan of Treatment Not on file documented as of this encounter Visit Diagnoses Not on filedocumented in this encounter Additional Health Concerns Assessment Noted Time PHQ-9 Depression Total Score: 10 024 11:02 AM EDT documented as of this encounter Care Teams Blow Mold Operator Relationship Specialty Start Date End Date Sima Kaur MD [address] [place] [address] PCP - General Family Medicine 11/28/20 documented as of this encounter
--- OUTSIDE RECORDS SUMMARY | 2025-03-10 12:53 | XMS_ITS | Encounter Summary ---
Author Organization [facility] Address [address] [facility] [address] [place] [address] Phone Care Team Providers Care Main Galley Scullion Name Role Phone Sima Kaur MD Primary Care Provider [phone] Reason for Visit * Reason Comments Med Refill Encounter Details Date Type Department Care Team (Late Contact Info) Description 06/11/2023 Refill [facility] [address] [place] [phone] [...] Upcoming Encounters Date Type Department Care Team ([facility] [place] Contact Info) Description 07/04/2025 1:00 PM EDT Office Visit [facility] [address] [place] [phone] Fazal Ohara MD [address] [facility] [address] [place] [address] documented as of this encounter Visit Diagnoses Not on filedocumented in this encounter Care Teams Main Galley Scullion Relationship Specialty Start Date End Date Sima Kaur MD [address] [place], [place] [phone] PCP - General In Flight Refueling Manager 05/24/21 documented as of this encounter
--- OUTSIDE RECORDS SUMMARY | 2025-03-10 12:53 | XMS_ITS | Data Portability ---
Author Organization [facility] [place] - [place] Address [address] [place] [address] Care Team Providers Care Notch Grinder Name Role Phone HIM CCA OTHER [facility] Primary Care Provider Assessment No assessment [...] Name and Address Organization Details Recorded Time 37711 codeine medicatio n Not available Not available Not available 12/27/2024 2670 RxNorm Not Available Authentic8 - production 5 15:30:47 Medications Name Sig [...] mm[Hg] 150 mm[Hg] 80 mm[Hg] Not Available [employer]hentic[employer] - [employer] 2 11:44:20 Social History None recorded. Functional [...] Note [address] Red[address] MD Main - [address] [address] 03/04/2022 11:17:35 06/25/2022 15:48:58 Acute low back pain [id number] M54.50 Pt p/w gradual worsening of LBP [...] assessment and plan as documented by the department store manager. I provided real time medical direction for [...] [place]os Member ID Guarantor Name 12/27/2024 1 [facility] - DOS PRIOR TO 2023 - DUAL ELIGIBLE (MEDICARE REPLACEMENT/AD VANTAGE - HMO) Stephanie Luz [id number] Stephanie Luz 12/27/2024 1 [facility] - DOS ON OR AFTER 2023 - DUAL ELIGIBLE - INTERMEDIATE OPTIONS AND ONE CARE (MEDICARE REPLACEMENT/AD VANTAGE - HMO) Stephanie Luz [id number] Stephanie Luz Notes Date Note Type Note Provider Name and Address Organization Details Recorded Time 03/04/2022 text/html HPI: Ax: Amoxicillin, clonidine, potassium claluvanate Patient having lower back pain since Thursday 03/01. Radiating to right leg. No urinary sx. taking Tylenol with mild relief. No numbness or known injury to area. .................. .................. .................. .................. .................. .................. .................. ............... Data Sme Note: Chief Complaint back pain Pertinent positive [...] ............... Disposition: Fulfilled Ct Redd MD [address] [facility],[address], [place], [address], [place]UL[place] - CHARLEEN HALE 03/04/2022 12:32:02 OBGyn Episode No OBEpisode recorded.
--- OUTSIDE RECORDS SUMMARY | 2025-03-10 12:53 | XMS_ITS | Clinical Summary ---
Author Organization [facility] Facility Address [address] [place] [address], [place] [address] Care Team Providers Care Research Test Engine Evaluator Name Role Phone Sima Kaur MD Primary Care Provider [phone] Allergies Active Allergy Reactions Criticality Noted Date [...] 01/19/2025 Refill [facility] [address] [place], [place] [address] Fazal Ohara MD from Last 3 Months [...] Visit [facility] [address] [place] [address] Fazal Ohraa MD [address] [facility] [address] [place] [address] Health Maintenance Due Date Last Done [...] % PVNMA 07/12/2020 us [facility] [id number] LICITED RESULTS Final Result PVNMA from Last 3 Months or Most Recently Relevant to Health Maintenance Insurance ([id number]) [facility] ([id number]) Care Teams Research Test Engine Evaluator Relationship Specialty Start Date End Date Sima Kaur MD [address] [place] [address] PCP - General Offshore Wind Operations Manager 05/24/21
--- NOTE | 2025-03-10 12:57 | HO.SPINEOV ---
Intake Visit Reasons: neck pain Intake Note: Ms. Luz is here today c/o neck pain. Advertising Sales Executive Required: No Allergies codeine Adverse Reaction (Intermediate, Verified 03/10/25 13:00) vertigo, nausea Assessment & Plan Assessment & Plan (1) Cervical radiculopathy: Code(s): M54.12 - Radiculopathy, cervical region Category: Medical Plan Dear Dr Valencia, Thank you for referring Mrs Luz to our office today. She is a very nice 69-year-old female with a history of a previous ACDF C5-[address] Valentine who presents for evaluation of 4 months of neck pain and tingling going into her left arm. It radiates down into her arm, forearm into her hand. She could not localize which fingers are affected the most but just describes it as being the whole hand. The neck pain is there all the time, the tingling in the arm is aggravated with things like driving, sleeping etc.. She has taken ibuprofen, Tylenol and cyclobenzaprine to help but these things do not really work much. She is here today to be evaluated for an MRI showing degenerative disc disease in the cervical spine adjacent to the previous fusion at C5-6. She has no myelopathic symptoms. She has done no conservative treatment yet. PMH: She is a diabetic, tells me last A1c is 6.6, history of high cholesterol, hypertension, ACDF, cholecystectomy, tubal ligation, celiac disease, constipation, tubular adenoma of the colon, sleep apnea, right shoulder tendinopathy, right carpal tunnel release lumbar degenerative disc disease. She denies any history of coronary artery disease, pulmonary disease, renal or liver disease, blood clots, bleeding disorders, cancer or major abdominal surgeries Social hx: She smokes about 3-4 cigarettes in the evenings, does not drink alcohol or use any recreational substances Medications: Hydrochlorothiazide, atenolol, Farxiga, Lipitor, Mounjaro, glipizide, lisinopril, vitamin-D, cyclobenzaprine, Linzess and clonazepam Allergies: Codeine Physical exam: Awake alert oriented no acute distress, strength is full, gait is normal, borderline positive Tinel sign in the left hand, negative Phalen's sign, reflexes bilaterally at the biceps are normal, diminished in the triceps on the left side. Imaging review: Cervical MRI and x-ray done at [facility] were reviewed. This shows evidence of fusion at C5-6. There is adjacent segment disease at C4-5 with bilateral moderate neuroforaminal stenosis, at C6-7, there appears to be moderate left-sided neuroforaminal stenosis as well as severe degenerative disc disease at this level. Impression: 69-year-old female history of ACDF C5-6 done by many years ago, presents with what sounds like adjacent segment disease with neck pain as well as tingling going down into her left arm and into her left hand. She describes it as her whole arm going into her whole hand. She has a previous history of carpal tunnel diagnosis on the left side, but this starts up in the neck and is diffusely encompassing the whole arm so I do not think it is related to that although she does have a borderline positive Tinel sign. Her strength is good. Slightly reduced reflexes in the left side triceps. I think this is coming from the C6-7 area where she has severe degenerative disc disease below her fusion. The dermatomal distribution seems to localize best to this level as well as the diminished reflex. To this point now she has had no dedicated conservative treatment so I will send her to physical therapy. Once that is completed I would like to see her back. In the meantime I will show her films with Dr. Benítez just in case the symptoms do not improve, which surgery he thinks would be most appropriate for her. She has no interest in getting injections in her neck. Thank you for allowing us to care for your patient. The total time spent with this visit with this patient was 45 minutes reviewing history, physical exam, cervical imaging review, and implementation of treatment plan or further diagnostic testing Balbir Benítez MD,PhD [facility] Orders: Orders PT Evaluation and Treatment Today M54.12 - Radiculopathy, cervical region Coding Level of Care Code New Pt Level 4 (06510) Diagnoses Cervical radiculopathy M54.12
== END 2025-03-10 13:40 | disposition home or self-care (01) ==
LOC: HO.HNS 12:50
PROVIDERS: PCP General Practice; Referring Provider General Practice; Visit Provider Physician Assistant
DX: M54.12 Radiculopathy, cervical region (principal)
CPT/HCPCS: 99204

== ENCOUNTER → 2025-03-10 12:50 | Outpatient (BNVA) | payer OTHER, SELFPAY | PROVIDERS: PCP General Practice; Referring Provider General Practice; Visit Provider Physician Assistant | DX: M54.12 Radiculopathy, cervical region (principal) | CPT/HCPCS: 99202 ==

== ENCOUNTER 2025-04-05 10:23 | Outpatient (AMB) | payer OTHER, SELFPAY ==
[2025-04-05 10:30] VITALS: BMI 29.3
--- NOTE | 2025-04-05 10:30 | MHC.OFFVIS ---
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 Patient was referred from [facility] by Reina Reyez MD on 01/11. Patient has a history of Cervical fusion done in 2004. Patient reports that her B/L neck pain is now going into the shoulders, shoulder blades and both hands as well. Patient stated that when she saw she was sent for an X Ray. Patient stressed that she does not want injections and did not want to attend Physical Therapy. She then added that she has a follow up with Dr. Valentine on 04/07 to review her X rays. *Patient stated over 6 weeks of neck pain with decreased range of motion Allergies codeine Adverse Reaction (Intermediate, Verified 04/05/25 10:36) vertigo, nausea HPI Comments Details: Chronic neck pain. Already seen by Dr. Benítez who recommended ACDF C6-7 if physical therapy does not improve her condition. Patient wants to see Dr. Valentine first, who did her 1st surgery. She has an appointment next week. Separate issue of pain and swelling on right MCP joints. History of bilateral CTS, carpal tunnel release on right side 10/23/2023. Last x-ray of the right hand 03/02/2024 showed mild arthritis. [facility] Medical History (Updated 04/05/25 @ 11:02 by Zoey Jacob MD) Hand pain, right Nausea and vomiting Bleeding hemorrhoids Nausea Epigastric pain Chronic migraine without aura Carpal tunnel syndrome of left wrist Pain of left thumb Numbness and tingling in left hand Carpal tunnel syndrome of right wrist Right arm numbness Arthritis of right shoulder region GERD (gastroesophageal reflux disease) Spondylosis of lumbar spine Diabetes High cholesterol HTN (hypertension) Back pain, chronic Migraines Surgical History (Updated 04/05/25 @ 11:02 by Zoey Jacob MD) S/P carpal tunnel release History of fusion of cervical spine History of carpal tunnel release History of hemorrhoidectomy (~04/01/23) History of esophagogastroduodenoscopy (EGD) Hx of fusion of cervical spine Hx of colonoscopy Hx of cholecystectomy Hx of tubal ligation Family History Father History of heart attack Mother Hx of type 1 diabetes mellitus Family history of high blood pressure Social History Alcohol intake: never Patient Tobacco Use Status: Current everyday Tobacco user Tobacco use type: Cigarette Cigarette Packs Per Day: 0.5 Cigarettes Per Day: 10 Years Smoked: 45 Current occupational status: employed 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 Negative carpal compression. Results Reviewed Results Reviewed: Ordering Physician: Sima Kaur Date of Service: 02/20/25 Procedure(s): MR cervical spine wo con Accession Number(s): [id number] cc: Sima Kaur~ EXAMINATION: MR CERVICAL SPINE WITHOUT CONTRAST CLINICAL INFORMATION: Neck pain, radiculopathy. Limited range of motion. COMPARISON: None available. TECHNIQUE: MRI of the cervical spine was obtained using routine sequences without contrast. FINDINGS: Paramagnetic field distortion secondary to metallic hardware at C5-6. Craniocervical junction is intact. No bone marrow STIR signal abnormality. Grade 1 retrolisthesis, C4-5. Grade 1 anterolisthesis C6-7 and likely C7-T1 on a degenerative basis. Cervical spinal cord signal is normal. C2-3: No disc herniation. No neuroforamina stenosis. C3-4: Central disc osteophyte complex formation resulting in ventral indentation to the thecal sac. No cord compression. Right neuroforamina narrowing on a degenerative basis. C4-5: Grade 1 retrolisthesis abutting the cord with CSF effacement of the thecal sac. No cord signal abnormality. Bilateral neuroforamina stenosis. C5-6: Postsurgical changes. No cord compression. No neuroforamina stenosis. C6-7: Left-sided disc osteophyte complex formation abutting the cord. No cord compression. Left neuroforamina narrowing on a degenerative basis. C7-T1: No disc herniation. No neuroforamina stenosis. Flow-void signal within the main vessels is normal. Left vertebral artery is slightly dominant. There is fatty signal within the parotid glands. There is a trace of fluid signal within the retropharynx/prevertebral compartment from C2 to C4. MR/MR cervical spine wo con IMPRESSION: Cervical spondylosis more conspicuous at C4-5 resulting in central spinal canal stenosis and bilateral neuroforamina stenosis without cord edema and or myelopathy. Trace of fluid signal prevertebral compartment from C2- C4. Electronically signed by: Tani Marie MD 02/21/2025 12:28 PM EDT RP I reviewed records from the following: Neuro spine Pain management EMG done by me on right side, 05/28/23. EMG done by Dr. Mckeon left side, 03/09/2024. Reviewed operative notes and hand surgery notes from 10/23/2023. Assessment & Plan Assessment & Plan (1) Cervicalgia: Code(s): M54.2 - Cervicalgia Category: Medical (2) S/P carpal tunnel release: Code(s): Z98.890 - Other specified postprocedural states Category: Surgical (3) Hand pain, right: Code(s): M79.641 - Pain in right hand Category: Medical Plan 1. Chronic neck pain. Already saw Dr. Benítez neuro spine who recommended ACDF. Waiting to see Dr. Valentine. 2. Right hand pain. Suspect from arthritic changes rather than Carpal Tunnel Syndrome. Assessment and plan discussed with patient, and patient was agreeable. All questions were answered thoroughly. Zoey Jacob MD, TIERNEY Board Certified, [place] Board of Physical Medicine and Rehabilitation (ABPMR) Board Certified, [place] Board of Electrodiagnostic Medicine (ABEM) Coding Level of Care Code New Pt Level 3 (59058) Diagnoses Cervicalgia M54.2 S/P carpal tunnel release Z98.890 Hand pain, right M79.641
--- OUTSIDE RECORDS SUMMARY | 2025-04-05 11:53 | XMS_ITS | Encounter Summary ---
Author Organization [employer] Address [address] [place] [address] [address] [place] [address] Care Team Providers Care Solutions Market Consultant Name Role Phone Sima Kaur MD Primary Care Provider [phone] Encounter Details Date Type Department Care Team (Late st Contact Info) Description 01/10/2023 Abstract [facility] MEDICINE [address] [place], [place] [phone] Sima Kaur MD [address] [place], [place] [phone] Social History Tobacco Use Types Packs/Day Years [...] CYTOLOGY ORDERABLES F inal Result [facility] [address], [place] [address] documented in this encounter Visit Diagnoses Not on filedocumented in this encounter Care Teams Solutions Market Consultant Relationship Specialty Start Date End Date Sima Kaur MD [address] [place] [id number] PCP - General Family Medicine 11/28/20 documented as of this encounter
== END 2025-04-05 11:03 | disposition home or self-care (01) ==
LOC: HO.HOS 10:23
PROVIDERS: PCP General Practice; Visit Provider Physical Medicine & Rehabilitation
DX: M54.2 Cervicalgia (principal); Z98.890 Other specified postprocedural states; M79.641 Pain in right hand
CPT/HCPCS: 99203

== ENCOUNTER → 2025-04-05 10:23 | Outpatient (BNVA) | payer OTHER, SELFPAY | PROVIDERS: PCP General Practice; Visit Provider Physical Medicine & Rehabilitation | DX: M54.2 Cervicalgia (principal); Z98.890 Other specified postprocedural states; M79.641 Pain in right hand | CPT/HCPCS: 99202 ==

== ENCOUNTER 2025-06-06 10:49 | Outpatient (AMB) | payer OTHER, SELFPAY ==
[2025-06-06 10:55] VITALS: BP 118/74; PULSE 66; O2SAT 96; BMI 27.4
--- NOTE | 2025-06-06 10:55 | MHC.OFFVIS ---
Vital Signs 06/06/25 10:55 Height 5 ft 1 in Weight 145 lb BMI 27.4 BP 118/74 Blood Pressure Location Lt brachial Position Sitting Pulse 66 Pulse Source Pulse Oximeter Pulse Oximetry (%) 96 Oxygen Delivery Method Room Air Intake Visit Reasons: Follow up 6mo Intake Note: Patient presents to the office today for a 6 month follow up for migraines/restless legs. Allergies codeine Adverse Reaction (Intermediate, Verified 06/06/25 11:35) vertigo, nausea Medication List - Last Reconciled 06/06/25 by MAURO Larios atenolol 75 mg PO DAILY atogepant (Qulipta) 60 mg PO DAILY 30 days atorvastatin 40 mg PO BEDTIME cholecalciferol (vitamin D3) (Vitamin D3) 25 mcg PO DAILY clonazepam 0.5 mg PO BEDTIME 30 days dapagliflozin propanediol (Farxiga) 5 mg PO DAILY famotidine (Pepcid) 40 mg PO BEDTIME gabapentin 100 - 300 mg (1 - 3 x 100 mg) PO BEDTIME 30 days galcanezumab-gnlm (Emgality Pen) 120 mg subcut ONCE 30 days glipizide ER 20 mg PO DAILY hydrochlorothiazide 25 mg PO DAILY lancets (FreeStyle Lancets) As directed linaclotide (Linzess) 145 mcg PO QAM lisinopril 20 mg PO DAILY omeprazole 20 mg PO .qamac 30 days rizatriptan 5 - 10 mg (0.5 - 1 x 10 mg) PO Q2H PRN 30 days tirzepatide (Mounjaro) 2.5 mg subcut QWEEK HPI Comments Details: 69-yr-old female presents for f/u visit for migraine exacerbation. Patient reports she has had an increase in her chronic neck pain, which has not been responsive to conservative treatments, and has been stable for many years following cervical repair by Dr. Valentine at [facility]. She had an MRI c-spine, multilevel cervical spondylosis, more conspicuous at C4-5, resulting in central spinal canal stenosis and bilateral neuroforamina stenosis without cord edema and or myelopathy. Trace of fluid signal prevertebral compartment from C2- C4. She just went for a f/u CT c-spine- results pending. Has a f/u appointment this Wed with/ Dr Valentine. Pt reports her migraines continue to be better.. She tries to avoid the heat, as this can be a trigger. She is still doing better about adhering to her gluten-free diet, her notes that this can make it more difficult to maintain optimal blood sugar control. She does not feel that the Mounjaro is as it depends on how much the I think with the you know how much they took it but I mean is a dopamine antagonist effective as her previous Trulicity was. Denies constipation on her current bowel regimen. Emgality and Rizatriptan have they can just get TD been helpful. She states she is sleeping better, now able to fall asleep around 1-2 am and wakes up around 7:30 am it so. Patient no longer has a CPAP. She has a history of mild sleep apnea with an AHI of 10 per hour. She reports an increase in her restless leg symptoms, such as an urge to move restlessness in the legs. She does have restlessness when in bed and restless sleep. Baseline headache characteristics: Severe, Throbbing pain usually in bilateral temples, sometimes the top of her head or mid-frontal a/w Photophobia, phonophobia, nausea, worsening external dizziness, brain fog, worsening blurry vision, neck tightness, top of head allodynia. [facility] Medical History Hand pain, right Nausea and vomiting Bleeding hemorrhoids Nausea Epigastric pain Chronic migraine without aura Carpal tunnel syndrome of left wrist Pain of left thumb Numbness and tingling in left hand Carpal tunnel syndrome of right wrist Right arm numbness Arthritis of right shoulder region GERD (gastroesophageal reflux disease) Spondylosis of lumbar spine Diabetes High cholesterol HTN (hypertension) Back pain, chronic Migraines Surgical History S/P carpal tunnel release History of fusion of cervical spine History of carpal tunnel release History of hemorrhoidectomy (~04/01/23) History of esophagogastroduodenoscopy (EGD) Hx of fusion of cervical spine Hx of colonoscopy Hx of cholecystectomy Hx of tubal ligation Family History Father History of heart attack Mother Hx of type 1 diabetes mellitus Family history of high blood pressure Social History Alcohol intake: never Patient Tobacco Use Status: Current everyday Tobacco user Tobacco use type: Cigarette Cigarette Packs Per Day: 0.5 Cigarettes Per Day: 10 Years Smoked: 45 Current occupational status: employed 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 Physical Exam Vital Signs: Last Vital Signs Pulse 66 06/06/25 10:55 BP 118/74 06/06/25 10:55 Pulse Ox 96 06/06/25 10:55 Oxygen Delivery Method Room Air 06/06/25 10:55 BMI result Body Mass Index 27.4 Const General: cooperative and no acute distress Orientation/consciousness: patient oriented x3 Resp Effort & Inspection: normal respiratory effort and able to speak in complete sentences Neuro Other: Photophobic General: patient oriented x3 Cranial nerves: Yes CN's II-XII intact bilaterally Cognition (Neuro): normal cognition Psych Appearance: grossly normal Mental Status: mental status grossly normal Speech and movement: Normal speech and movement present Affect: normal affect Attitude: cooperative Assessment & Plan Assessment & Plan (1) Chronic migraine without aura: Comment: ? hypnic headache component Code(s): G43.709 - Chronic migraine without aura, not intractable, without status migrainosus Category: Medical Qualifiers: Status migrainosus presence: without status migrainosus Intractability: not intractable Qualified Code(s): G43.709 - Chronic migraine without aura, not intractable, without status migrainosus (2) Restless leg syndrome: Code(s): G25.81 - Restless legs syndrome Category: Medical (3) SHUN (obstructive sleep apnea): Comment: AHI 6/hr Code(s): G47.33 - Obstructive sleep apnea (adult) (pediatric) Category: Medical (4) Sleep difficulties: Code(s): G47.9 - Sleep disorder, unspecified Category: Medical Plan For cervicalgia: Follow-up with Dr. Valentine as scheduled For overall headache management: Continue optimizing good self-care, including but not limited to maintaining a healthy diet,? adequate fluid intake, adequate sleep, and engaging in regular physical activity. Again commended patient's efforts to improve her diet and be more adhering to a gluten free diet in setting of celiac disease. However, in regards to her concern for balancing her gluten free status and diabetic needs, patient advised to discuss with PCP having a referral for a diabetic nutrition evaluation. ? For acute headache treatment: Continue Rizatriptan 10mg tab, 1/2 - 1 tab (5-10mg) at onset of headache, may repeat in 2 hours. Max of 2 tabs (200mg) per 24 hours. May adjunct with Diclofenac 50mg bid as needed. Continue Diclofenac 50mg bid prn. May use metoclopramide 5-10mg po qid prn N/V and/or migraine rescue. Previous acute migraine medication trials: Nurtec- ineffective, Ubrelvy- ineffective. Fioricet- ineffective. Sumatriptan- ineffective. Acute migraine medication contraindications: none at this time. ? For headache prevention medication: Continue Qulipta (atogepant) 60 mg po qhs. Continue Emgality 120mg sc monthly. Continue Qulipta and Emgality concomitantly, as patient has had good clinical effect from concomitant use of Emgality and Qulipta- with greater than 50% reduction in overall migraine burden. Pt is currently on Atenolol for HTN. Previous migraine prevention medication trials: Gabapentin- ineffective, Amitriptyline- ineffective, Topiramate- ineffective, Botox x's 2 tx sessions- ineffective, bi-temporal trigger point injections- ineffective. Magnesium 400mg qhs- not tolerated. Riboflavin- ineffective. Baclofen 10-20mg qhs- not tolerated. Riboflavin 400mg- inefefctive Migraine prevention medication contraindications: Aimovig d/t h/o RLS and constipation. Future considerations- Caffeine qhs, [place]. ? For sleep and restless leg syndrome: Discussed that improving her sleep quality, would likely further benefit her chronic migraine management. Reviewed simple strategies to optimize sleep hygiene Patient may benefit from reading RLS patient education resources such as ?navigating life with restless leg syndrome? by Dr. Marie. Start gabapentin 100mg capsule Take 1 cap 2-3 hours before bed, 1 hour before bed, and at bedtime (max 3 caps per night). Decreased clonazepam 0.5 mg daily at bedtime to 0.25 mg daily at bedtime for several days, then take every other night, and then stopped Check fasting labs for underlying etiologies of worsening RLS symptoms Consider ordering follow-up HST, once RLS symptoms are better controlled. Previous trials- Amitriptyline 10-20mg qhs- did not help sleep or headaches. Pt would not be a candidate for Inspire, as her last sleep study showed mild SHUN. Future considerations- mandibular device. ? Will follow-up upon review of above and patient to follow-up in clinic in 6 months or sooner prn. Orders: Orders Vitamin B12 and Folate Today E11.9 - Type 2 diabetes mellitus without complications, G25.81 - Restless legs syndrome, K90.0 - Celiac disease, R53.83 - Other fatigue TSH reflex Free T4 Today E11.9 - Type 2 diabetes mellitus without complications, G25.81 - Restless legs syndrome, K90.0 - Celiac disease, R53.83 - Other fatigue Ferritin Today E11.9 - Type 2 diabetes mellitus without complications, G25.81 - Restless legs syndrome, K90.0 - Celiac disease, R53.83 - Other fatigue Complete Blood Count Auto Diff Today E11.9 - Type 2 diabetes mellitus without complications, G25.81 - Restless legs syndrome, K90.0 - Celiac disease, R53.83 - Other fatigue Comprehensive Lyles. Panel Fast Today E11.9 - Type 2 diabetes mellitus without complications, G25.81 - Restless legs syndrome, K90.0 - Celiac disease, R53.83 - Other fatigue IRON PROFILE Today D64.9 - Anemia, unspecified, E11.9 - Type 2 diabetes mellitus without complications, G25.81 - Restless legs syndrome, K90.0 - Celiac disease, R53.83 - Other fatigue Magnesium Today E11.9 - Type 2 diabetes mellitus without complications, G25.81 - Restless legs syndrome, K90.0 - Celiac disease, R53.83 - Other fatigue Erythrocyte Sedimentation Rate Today E11.9 - Type 2 diabetes mellitus without complications, G25.81 - Restless legs syndrome, K90.0 - Celiac disease, R53.83 - Other fatigue C Reactive Protein Today E11.9 - Type 2 diabetes mellitus without complications, G25.81 - Restless legs syndrome, K90.0 - Celiac disease, R53.83 - Other fatigue Vitamin D 25-OH (D2 and D3) 3 Months E55.9 - Vitamin D deficiency, unspecified, M18.11 - Unilateral primary osteoarthritis of first carpometacarpal joint, right hand Medications: New gabapentin 100 - 300 mg (1 - 3 x 100 mg) PO BEDTIME 90 caps 3RF 30 days Coding Level of Care Code Est Pt Level 4 (74871) Diagnoses Chronic migraine without aura without status migrainosus, not intractable G43.709 Status migrainosus presence: without status migrainosus Intractability: not intractable Restless leg syndrome G25.81 SHUN (obstructive sleep apnea) G47.33 Sleep difficulties G47.9
--- OUTSIDE RECORDS SUMMARY | 2025-06-06 11:49 | XMS_ITS | Clinical Summary ---
Author Organization [facility] Address [address] [place] [address], [place] [address] Care Team Providers Care Cost Report Clerk Name Role Phone Sima Kaur MD Primary Care Provider [phone] Allergies Active Allergy Reactions Criticality Noted Date [...] Encounters Date Type Department Care Team Description 05/24/2025 Orders Only [facility] [address] [place] [address] Fazal Ohara MD Chronic kidney disease stage 2; Hypertensive disorder; Renal disorder due to type 2 diabetes mellitus <Diabetic nephropathy> (HCC) 04/16/2025 Refill [facility] [address] [place] [address] Fazal Ohara MD from Last 3 Months [...] Date Smoking Tobacco: Every Day Cigarettes 0.5 42.6 Started: 10/20/1982 Smokeless Tobacco: Never Alcohol Use [...] Care Team (Late st Contact Info) Description 06/30/2025 1:00 PM EDT Office Visit [facility] [address] [place] [address] Fazal Ohara MD [address] [address] Health Maintenance Due Date Last Done Comments Breast Cancer Screening 1957 Colorectal Cancer Screening: Annual FOBT 2006 Colorectal Cancer Screening: Colonoscopy 2006 Colorectal Cancer Screening: Sigmoidoscopy 2006 Diabetes: Ophthalmology Exam 11/19/2020 Diabetes: Pedal Pulse Checked 11/19/2020 Diabetes: Sensory Foot Exam 11/19/2020 Diabetes: Visual Foot Exam 11/19/2020 Diabetes: Hemoglobin A1C 04/20/2025 025, 08/16/2024, 05/25/2024, Additional history exists Influenza Vaccine (#1) 2025 2, 08/03/2021, 07/11/2020, Additional history exists Hepatitis B [...] % PVNMA 07/12/2020 us Rt[facility] Conversion LAB [id number] LICITED RESULTS Final Result PVNMA from Last 3 Months or Most Recently Relevant to Health Maintenance Insurance [facility] ([id number]) [facility] MCR ([id number]) Care Teams Cost Report Clerk Relationship Specialty Start Date End Date Vincent, Sima M, MD [address] [place] [address] PCP - General Wire Taper 05/24/21
--- OUTSIDE RECORDS SUMMARY | 2025-06-06 11:49 | XMS_ITS | Encounter Summary ---
Author Organization [employer] Address [address] [place] [address] [address] [place] [address] Care Team Providers Care Extension Work Instructor Name Role Phone Sima Kaur MD Primary Care Provider [phone] Encounter Details Date Type Department Care Team (Late st Contact Info) Description 01/10/2023 Abstract [facility] [address] [place] [address] [phone] Sima Kaur MD [address] [place] [address] [phone] Social History Tobacco Use Types Packs/Day Years [...] Care Team (Late st Contact Info) Description 07/08/2025 4:00 PM EDT Office Visit [facility] [address] [place] [address] [phone] Sima Kaur MD [address] [place] [address] [phone] documented as of this encounter Procedures Procedure Name Priority Date/Time Associated Diagnosis Comments MAMMOGRAPHY Routine 05/15/2022 PAP SMEAR Routine 07/11/2020 12:00 AM EDT documented in this encounter Results * Mammography (05/15/2022) Mammogram completed mammo Anatomical Region Laterality Modality Other Historical Provider HEALTH MAINTENANCE Final Result * Pap Smear (07/11/2020 12:00 AM EDT) Swab Historical Provider LAB CYTOLOGY ORDERABLES F inal Result [address], [place] [address] documented in this encounter Visit Diagnoses Not on filedocumented in this encounter Care Teams Extension Work Instructor Relationship Specialty Start Date End Date Sima Kaur MD [address] [place] [address] PCP - General Family Medicine 11/28/20 documented as of this encounter
== END 2025-06-06 12:27 | disposition home or self-care (01) ==
LOC: HO.HSMS 10:49
PROVIDERS: PCP General Practice; Visit Provider Nurse Practitioner Family
DX: G43.709 Chronic migraine without aura, not intractable, without status migrainosus (principal); G25.81 Restless legs syndrome; G47.33 Obstructive sleep apnea (adult) (pediatric); G47.9 Sleep disorder, unspecified
CPT/HCPCS: 99214

== ENCOUNTER → 2025-06-06 10:49 | Outpatient (BNVA) | payer OTHER, SELFPAY | PROVIDERS: PCP General Practice; Visit Provider Nurse Practitioner Family | DX: G43.709 Chronic migraine without aura, not intractable, without status migrainosus (principal); G25.81 Restless legs syndrome; G47.33 Obstructive sleep apnea (adult) (pediatric); G47.9 Sleep disorder, unspecified | CPT/HCPCS: 99212 ==

== ENCOUNTER 2025-06-07 10:35 | Outpatient (REF) | payer OTHER, SELFPAY ==
[2025-06-07 10:57] LABS: MANUAL DIFF FLAG NO
[2025-06-07 11:25] LABS: Hematocrit 43.4 % (37.0-47.0); Hemoglobin 14.5 g/dl (12.0-16.0); Imm Gran Abs Auto 0.02 X10*3/uL (0.00-0.03); Imm Gran Pct Auto 0.2 % (0.0-0.4); Lymphocytes Absolute Auto 2.6 X10*3/uL (1.2-4.9); Mean Corpuscular HGB Conc 33.4 g/dl (31.0-35.0); Mean Corpuscular Hemoglobin 31.1 pg (27.0-33.0); Mean Corpuscular Volume 93.1 fL (80.0-98.0); NRBC Abs Auto 0.000 X10*3/uL (0.0-0.012); NRBC Pct Auto 0.0 /100WBC (0.0-0.2); Platelet Count 233 X10*3/uL (160-400); Red Blood Count 4.66 X10*6/uL (4.20-5.50); White Blood Count 8.9 X10*3/uL (4.8-10.8)
--- OUTSIDE RECORDS SUMMARY | 2025-06-07 12:03 | XMS_ITS | Clinical Summary ---
Author Organization [facility] Address [address] [place] [address], [place] [address] Care Team Providers Care Book Packer Name Role Phone Sima Kaur MD Primary Care Provider [phone] Allergies Active Allergy Reactions Criticality Noted Date [...] Only [facility] [address] [place] [address] Fazal Ohara MD Chronic kidney disease stage 2; Hypertensive disorder; Renal disorder due to type 2 diabetes mellitus <Diabetic nephropathy> (HCC) 04/16/2025 Refill [facility] [address] [place] [address] Fazal Ohara MD from Last 3 Months [...] Visit [facility] [address] [place] [address] Fazal Ohara MD [address] [address] Health Maintenance Due Date Last Done Comments [...] % PVNMA 07/12/2020 us Rtama Conversion LAB [id number] LICITED RESULTS Final Result PVNMA from Last 3 Months or Most Recently Relevant to Health Maintenance Insurance [facility] ([id number]) [facility] MCR ([id number]) Care Teams Book Packer Relationship Specialty Start Date End Date Vincent, Sima M, MD [address] [place] [address] PCP - General Orange Picking Supervisor 05/24/21
--- OUTSIDE RECORDS SUMMARY | 2025-06-07 12:03 | XMS_ITS | Encounter Summary ---
Author Organization [employer] Address [address] [place] [address] [address] [place] [address] Care Team Providers Care Cloth Finishing Range Tender Name Role Phone Sima Kaur MD Primary Care Provider [phone] Encounter Details Date Type Department Care Team (Late st Contact Info) Description 01/10/2023 Abstract [facility] [address] [place] [address] [phone] Sima Kaur MD [address] [place] [address] [phone] Social History Tobacco Use Types Packs/Day Years [...] Description 07/08/2025 4:00 PM EDT Office Visit [facility] [address] [place] [address] [phone] Sima Kaur MD [address] [place] [address] [phone] documented as of this encounter Procedures Procedure Name Priority Date/Time Associated Diagnosis Comments MAMMOGRAPHY Routine 05/15/2022 PAP SMEAR Routine 07/11/2020 12:00 AM EDT documented in this encounter Results * Mammography (05/15/2022) Mammogram completed mammo Anatomical Region Laterality Modality Other Historical Provider HEALTH MAINTENANCE Final Result * Pap Smear (07/11/2020 12:00 AM EDT) Swab Historical Provider LAB CYTOLOGY ORDERABLES F inal Result [address], [place] [address] documented in this encounter Visit Diagnoses Not on filedocumented in this encounter Care Teams Cloth Finishing Range Tender Relationship Specialty Start Date End Date Sima Kaur MD [address] [place] [address] PCP - General Family Medicine 11/28/20 documented as of this encounter
[2025-06-07 12:05] LABS: Alanine Aminotransferase 33 U/L (0-31); Albumin Level 4.5 g/dL (3.5-5.0); Alkaline Phosphatase 106 U/L (39-117); Anion Gap 14 (12-20); Aspartate Amino Transferase 25 U/L (5-31); Blood Urea Nitrogen 23 mg/dL (9-16); Calcium 9.7 mg/dL (8.4-10.2); Carbon Dioxide 26 mmol/L (22-29); Chloride 106 mmol/L (96-108); Estimated Glomerular Filt Rate 57; Iron 72 mcg/dL (30-160); Magnesium 2.0 mg/dL (1.6-2.6); Percent Iron Saturation 30 % (15-50); Potassium 3.5 mmol/L (3.3-5.1); Sodium 142 mmol/L (135-145); Total Iron Binding Capacity 241 mcg/dL (228-428); Total Protein 6.8 g/dL (6.5-8.0); Unsaturated Iron Binding 169 ug/dL
[2025-06-07 12:15] LABS: Ferritin 142 ng/mL (10-250)
[2025-06-07 12:35] LABS: Folate 10.7 ng/mL (> or = 4.0); Vitamin B12 754 pg/mL (200-900)
== END 2025-06-07 10:36 | disposition home or self-care (01) ==
LOC: HO.LAB 10:35
PROVIDERS: PCP General Practice; Visit Provider Nurse Practitioner Family
DX: G25.81 Restless legs syndrome (principal); E11.9 Type 2 diabetes mellitus without complications; K90.0 Celiac disease; R53.83 Other fatigue
CPT/HCPCS: 36415; 80053; 82607; 82728; 82746; 83540; 83735; 84443; 85025; 85652; 86140

== ENCOUNTER 2025-08-19 11:21 | Outpatient (REF) | payer OTHER, SELFPAY ==
--- NOTE | ~2025-08-19 | MM_ITS ---
EXAMINATION: MM SCREENING DIGITAL BREAST TOMOSYNTHESIS, BILATERAL CLINICAL INFORMATION: Screening. Asymptomatic. COMPARISON: Mammography: Comparison is made with available priors TECHNIQUE: Digital breast mammography with tomosynthesis is performed in both the craniocaudal and mediolateral oblique views along with computer-aided detection (CAD). FINDINGS: The breasts are heterogeneously dense, which may obscure small masses. There are no significant masses, abnormal calcifications, or other abnormalities. MM/MM tomosynthesis screening BI IMPRESSION: No mammographic evidence of malignancy. ASSESSMENT: BI-RADS Category 1: Negative RECOMMENDATION: Routine annual mammography screening. 1 year F/U This examination should not preclude the clinical evaluation of a suspicious palpable abnormality. This patient's information was entered into a reminder system with a target due date for their next mammogram. Electronically signed by: Felicia English DO 08/23/2025 10:13 AM LEONIE
--- OUTSIDE RECORDS SUMMARY | 2025-08-19 12:57 | XMS_ITS | Encounter Summary ---
Author Organization [facility] Address [address] [facility] [address] [place] [address] Phone Care Team Providers Care Dog Barber Name Role Phone Sima Kaur MD Primary Care Provider [phone] Reason for Visit * Reason Comments Med Refill Encounter Details Date Type Department Care Team (Late Contact Info) Description 05/12/2023 Refill [facility] [address] [place] [address] Blayne Corral MD Social History Tobacco Use Types Packs/Day Years Used Date Smoking Tobacco: Every Day Cigarettes 0.5 42.8 Started: 10/20/1982 Smokeless Tobacco: Never Alcohol Use [...] Encounters Date Type Department Care Team (Late Contact Info) Description 07/03/2026 1:30 PM EDT Office Visit [facility] [address] [address] Fazal Ohara MD [address] [facility] [address] [place] [address] documented as of this encounter Visit Diagnoses Not on filedocumented in this encounter Care Teams Dog Barber Relationship Specialty Start Date End Date Sima Kaur MD [address] [place], [place] [phone] PCP - General Application Designer 05/24/21 documented as of this encounter
--- OUTSIDE RECORDS SUMMARY | 2025-08-19 12:57 | XMS_ITS | Encounter Summary ---
Author Organization [employer] Address [address] [place] [address] Care Team Providers Care Hospital Cleaner Name Role Phone Sima Kaur MD Primary Care Provider [phone] Encounter Details Date Type Department Care Team (Late st Contact Info) Description 03/07/2025 Orders Only [facility] [address] [place], [place] [phone] Sima Kaur MD [address] [place], [place] [phone] Social History Tobacco Use Types Packs/Day Years [...] Care Team (Late st Contact Info) Description 09/20/2025 10:30 AM EST Office Visit [facility] [address] [place] [address] Sima Kaur MD [address] [place] [address] documented as of this encounter Procedures Procedure [...] documented as of this encounter Care Teams Hospital Cleaner Relationship Specialty Start Date End Date Sima Kaur MD [address] [place] [address] PCP - General Family Medicine 11/28/20 documented as of this encounter
--- OUTSIDE RECORDS SUMMARY | 2025-08-19 12:57 | XMS_ITS | Encounter Summary ---
Author Organization [facility] Address [address] [facility] [address] [place] [address] Phone Care Team Providers Care Food Safety Coordinator Name Role Phone Sima Kaur MD Primary Care Provider [phone] Reason for Visit * Reason Comments Med Refill Encounter Details Date Type Department Care Team (Late Contact Info) Description 06/11/2023 Refill [facility] [address] [place] [address] Blayne Corral MD [...] Office Visit [facility] [address] [place] [address] Fazal Ohara MD [address] [facility] [address] [place] [address] documented as of this encounter Visit Diagnoses Not on filedocumented in this encounter Care Teams Food Safety Coordinator Relationship Specialty Start Date End Date Sima Kaur MD [address] [place], [place] [phone] PCP - General Employment Director 05/24/21 documented as of this encounter
--- OUTSIDE RECORDS SUMMARY | 2025-08-19 12:57 | XMS_ITS | Encounter Summary ---
Author Organization [facility] Address [address] [facility] [address] [facility] [address] [place] [address] Phone Care Team Providers Care Climatologist Name Role Phone Sima Kaur MD Primary Care Provider + [phone] Reason for Visit * Reason Comments Med Refill Encounter Details Date Type Department Care Team (Late Contact Info) Description 06/03/2022 Refill [facility] [place] [address] [facility] [address] [place] [id number] Chester Alves MD [address] [address] Social History Tobacco Use Types [...] Care Team (Late st Contact Info) Description 07/03/2026 1:30 PM EDT Office Visit [facility] [address] [place] [address] Fazal Ohara MD [address] [facility] [address] [place] [address] documented as of this encounter Visit Diagnoses Not on filedocumented in this encounter Care Teams Climatologist Relationship Specialty Start Date End Date Sima Kaur MD [address] [place] [address] PCP - General Catering Attendant 05/24/21 documented as of this encounter
--- OUTSIDE RECORDS SUMMARY | 2025-08-19 12:57 | XMS_ITS | Clinical Summary ---
Author Organization [facility] Address [address] [place] [address], [place] [address] Care Team Providers Care Steam Tank Operator Name Role Phone Sima Kaur MD Primary Care Provider [phone] Allergies Active Allergy Reactions Criticality Noted Date Comments Amoxicillin 04/27/2021 Other reaction(s): GI Problems Clavulanic Acid 04/27/2021 Clonidine Other (see comments) 05/24/2021 Medications cholecalcifer ol (VITAMIN D-3) 25 MCG (1000 UT) capsule Take 1 capsule by mouth 1 (one) time each day Active glipiZIDE (GLUCOTROL XL) 5 MG 24 hr tablet Take 20 mg by mouth 1 (one) time each day with breakfast 05/09/20 21 Active hydroCHLOROth iazide 25 MG tablet Take 25 mg by mouth every morning 04/09/20 21 Active atenolol (TENORMIN) 50 MG tablet Take 75 mg by mouth 1 (one) time each day 03/08/20 21 Active simvastatin (ZOCOR) 20 MG tablet Take 20 mg by mouth 1 (one) time each day in the evening 03/09/20 21 Active cyclobenzapri ne (FLEXERIL) 10 MG tablet Take 1 tablet [...] Active Additional Information Patient not taking.Reported on 06/30/2025 Mounjaro 2.5 MG/0.5ML solution auto-injector INJECT 2 & 1/2 (TWO & ONE-HALF) MG SUBCUTANEOUSLY ONCE A WEEK 04/07/20 25 Active lisinopril 20 MG tablet Take 1 tablet by mouth once daily 90 tablet 07/12/20 25 Active Farxiga 5 MG tablet Take 1 tablet by mouth once daily 30 tablet 07/25/20 25 Active Farxiga 5 MG tablet TAKE 1 TABLET BY MOUTH ONCE DAILY 30 tablet 06/28/20 25 2024 Discontinued Active Problems Problem Noted Date [...] Encounters Date Type Department Care Team Description 07/25/2025 Refill [facility] [address] [place] [address] Fazal Ohara MD 07/12/2025 Refill [facility] [address] [place] [address] Fazal Ohara MD 06/30/2025 1:00 PM EDT Office Visit [facility] [address] [place] [address] Fazal Ohara MD Chronic kidney disease stage 2 (Primary Dx); Hypertensive disorder 06/28/2025 Refill [facility] [address] [place] [address] Fazal Ohara MD 06/25/2025 Refill [facility] [address] [place] [address] Fazal Ohara MD 05/24/2025 Orders Only [facility] [address] [place] [address] Fazal Ohara MD Chronic kidney disease stage 2; Hypertensive disorder; Renal disorder due to type 2 diabetes mellitus <Diabetic nephropathy> (HCC) from Last 3 Months Immunizations Immunization Administration [...] Sign Reading Time Taken Comments Blood Pressure 124/70 06/30/2025 12:51 PM EDT Pulse 66 06/30/2025 12:51 PM EDT Temperature - - Respiratory Rate - - Oxygen Saturation 97% 06/30/2025 12:51 PM EDT Inhaled Oxygen Concentration - - Weight 68 kg (150 lb) 06/30/2025 12:51 PM EDT Height 154.9 cm (5' 1 ) 06/24/2024 1:45 PM EDT Body Mass Index 28.34 06/24/2024 1:45 PM EDT Plan of Treatment Upcoming Encounters Date Type Department Care Team (Late st Contact Info) Description 07/03/2026 1:30 PM EDT Office Visit [facility] [address] [place] [address] Fazal Ohara MD [address] [facility] [address] [place] [address] Health Maintenance Due Date Last Done Comments Breast Cancer Screening 1955 Colorectal Cancer Screening: Annual FOBT 2006 Colorectal Cancer Screening: Colonoscopy 2006 Colorectal Cancer Screening: Sigmoidoscopy 2006 Diabetes: Ophthalmology Exam 11/19/2020 Diabetes: Pedal Pulse Checked 11/19/2020 Diabetes: Sensory Foot Exam 11/19/2020 Diabetes: Visual Foot Exam 11/19/2020 Influenza Vaccine (#1) 2025 2, 08/03/2021, 07/11/2020, Additional history exists Diabetes: Hemoglobin A1C 10/07/2025 025, 01/19/2025, 08/16/2024, Additional history exists Hepatitis B Vaccine Aged [...] % PVNMA 07/12/2020 us [facility] [id number] LICITED RESULTS Final Result PVNMA from Last 3 Months or Most Recently Relevant to Health Maintenance Insurance [facility] ([id number]) [facility] ([id number]) Care Teams Steam Tank Operator Relationship Specialty Start Date End Date Sima Kaur MD [address] [place] [id number] PCP - General Mat Making Machine Tender 05/24/21
--- OUTSIDE RECORDS SUMMARY | 2025-08-19 12:57 | XMS_ITS | Encounter Summary ---
Author Organization [employer] Address [address] [facility] 7 [place] [address] Care Team Providers Care Shoe Lining Fitter Name Role Phone Sima Kaur MD Primary Care Provider [phone] Reason for Visit * Reason Comments Med Refill Encounter Details Date Type Department Care Team ([facility] st Contact Info) Description 05/31/2025 Refill [facility] [address] [place], [place] [phone] Sima Kaur MD [address] [place] [address] Social History Tobacco Use Types Packs/Day Years [...] Description 09/20/2025 10:30 AM EST Office Visit [facility] [address] [place] [address] Sima Kaur MD [address] [place] [address] documented as of this encounter Visit Diagnoses Not on filedocumented in this encounter Additional Health Concerns Assessment Noted Time PHQ-9 Depression Total Score: 14 025 3:41 PM EDT documented as of this encounter Care Teams Shoe Lining Fitter Relationship Specialty Start Date End Date Sima Kaur MD [address] [place] [phone] PCP - General Family Medicine 11/28/20 documented as of this encounter
--- OUTSIDE RECORDS SUMMARY | 2025-08-19 12:57 | XMS_ITS | Encounter Summary ---
Author Organization [email or web address] Address [address] [place] [address], [place] [address] Care Team Providers Care Senior Electrical Design Engineer Name Role Phone Sima Kaur MD Primary Care Provider [phone] Reason for Referral * Consultation (Routine) - Closed Specialty Diagnoses / Procedures Referred By Contac t Referred To Contact Neurosurgery Diagnoses Cervical spine pain Cervical radiculopathy due to degenerative joint disease of spine Sima Kaur MD [address] [place] [address] Phone: tel: fax: Sheridan Valentine MD [address] [place] [address], [address] [place] [address] Phone: tel: fax: Referral ID Status Reason Start Date Expiration Date V isits Requested Visits Authorized [id number] Closed Specialty Services Required 05/28/2024 05/28/2025 1 0 Encounter Details Date Type Department Care Team (Late st Contact Info) Description 05/28/2024 Orders Only [facility] [address] [place], [place] [phone] Sima Kaur MD [address] [place], [place] [phone] Cervical spine pain (Primary Dx); Cervical radiculopathy [...] Description 09/20/2025 10:30 AM EST Office Visit [facility] [address] [place] [address] Sima Kaur MD [address] [place] [address] Scheduled Referrals Name Type Priority Associated Diagnoses [...] documented as of this encounter Care Teams Senior Electrical Design Engineer Relationship Specialty Start Date End Date Sima Kaur MD [address] [place] [address] PCP - General Family Medicine 11/28/20 documented as of this encounter
--- OUTSIDE RECORDS SUMMARY | 2025-08-19 12:57 | XMS_ITS | Clinical Summary ---
Author Organization [employer] Address [address] [place] [address] 7[address] [place] [address] Care Team Providers Care Hat Body Inspector Name Role Phone Sima Kaur MD Primary Care Provider [phone] Allergies Active Allergy Reactions Criticality Noted Date Comments Amoxicillin 04/27/2021 Other reaction(s): GI Problems Clavulanic Acid 04/27/2021 Clonidine Other 01/14/2011 Other reaction(s): dizziness, headache, GI Codeine Other 01/20/2025 Medications acetaminophen (Tylenol 8 Hour) 650 MG ER tablet Take 1 tablet by mouth every 8 (eight) hours. 04/24/20 21 Active atorvastatin (Lipitor) 40 MG tablet Take 40 mg by mouth at bedtime. 09/19/20 22 Active clonazePAM (KlonoPIN) 0.5 MG tablet TAKE 3 TABLETS BY MOUTH AT BEDTIME 10/08/20 22 Active dapagliflozin (Farxiga) 5 MG Take 1 tablet by mouth in the morning. 08/13/20 22 Active Emgality 120 MG/ML auto-injector 10/14/20 22 Active Docusate Sodium (DSS) 100 MG capsuleIndicati ons:Other constipation Take one capsule in the morning and one in the evening for constipation 180 capsule 3 10/15/20 22 Active Qulipta 60 MG tablet Take 1 tablet by mouth in the morning. 02/18/20 23 Active lisinopril 20 MG tablet Take 20 mg by mouth. 01/10/20 23 Active omeprazole (PriLOSEC) [address] capsule TAKE 1 CAPSULE BY MOUTH ONCE DAILY FOR 30 DAYS 05/15/20 23 Active rizatriptan (Maxalt) 10 MG tablet TAKE 1/2 TO 1 (ONE-HALF TO ONE) TABLET BY MOUTH EVERY 2 HOURS NEEDED FOR MIGRAINE HEADACHE FOR 21 DAYS. MAX 2 TABLETS PER DAY OR 4 TABLET PER WEEK 10/04/20 23 Active FreeStyle lancets 1 each by Other route 2 times daily. USE TO TEST BLOOD SUGAR TWICE DAILY 100 each 11 12/22/19 24 Active chlorhexidine (Peridex) 0.12 % solution SWISH 15 ML IN MOUTH AND SPIT OUT TWICE DAILY FOR 10 DAYS 01/29/20 24 Active famotidine (Pepcid) 40 MG tablet Take 40 mg by mouth at bedtime. 03/04/20 24 Active Linzess 145 MCG capsule TAKE 1 CAPSULE BY MOUTH IN THE MORNING. TAKE FIRST THING IN THE MORNING WITH A FULL GLASS OF WATER 05/16/20 24 Active nicotine (Nicoderm, Step 2) 14 MG/24HR patch Place 1 patch on the skin 1 (one) time each day at the same time. 30 patch 11 05/25/20 24 Active Alcohol Swabs (B-D SINGLE USE SWABS REGULAR) padsIndications :Type 2 diabetes mellitus without complication, without long-term current use of insulin (HCC) USE 1 SWAB EXTERNALLY TWICE DAILY 100 each 11 11/09/19 25 Active FREESTYLE LITE test stripIndication s:Type 2 diabetes mellitus without complication, without long-term current use of insulin ([facility]) USE 1 STRIP TO CHECK GLUCOSE TWICE DAILY DIRECTED 150 each 3 12/15/19 25 Active hydroCHLOROthia zide (HYDRODiuril) 25 MG tabletIndicatio ns:Essential hypertension TAKE 1 TABLET BY MOUTH IN THE MORNING 90 tablet 3 12/23/19 25 Active clobetasol (Temovate) 0.05 % ointmentIndicat ions:Dermatitis Apply topically 2 times daily. 15 g 1 12/29/19 25 Active cyclobenzaprine (Flexeril) 10 MG tabletIndicatio ns:Neck pain Take 1 tablet (10 mg) by mouth if needed in the morning and at bedtime for muscle spasms. 60 tablet 2 01/20/20 25 Active glipiZIDE XL (Glucotrol XL) 10 MG 24 hr tablet TAKE 2 TABLETS BY MOUTH ONCE DAILY WITH BREAKFAST 180 tablet 3 01/29/20 25 Active atenolol (Tenormin) 50 MG tabletIndicatio ns:Primary hypertension TAKE 1 & 1/2 (ONE & ONE-HALF) TABLETS BY MOUTH ONCE DAILY 135 tablet 3 02/15/20 25 Active Blood Glucose Monitoring Suppl (FreeStyle Lite) device Inject 1 each under the skin 2 times daily. USE DIRECTED TO CHECK BLOOD GLUCOSE TWICE DAILY (E11.9) 1 each 05/06/20 25 Active cholecalciferol (D3) 25 MCG (1000 UT) capsule TAKE 1 CAPSULE BY MOUTH EVERY DAY 90 capsule 1 05/31/20 25 Active gabapentin (Neurontin) 100 MG capsule TAKE 1 TO 3 CAPSULES BY MOUTH AT BEDTIME 06/06/20 25 Active Blood Glucose Monitoring Suppl (FreeStyle Lite) w/Device kit USE TO CHECK BLOOD SUGAR DIRECTED TWICE DAILY 05/06/20 25 Active Tirzepatide (Mounjaro) 5 MG/0.5ML solution auto-injector Inject 5 mg under the skin 1 (one) time per week. 2 mL 3 07/08/20 25 Active naproxen (Naprosyn) 500 MG tablet Take 1 tablet (500 mg) by mouth 1 (one) time if needed for mild pain (with Reglan and Benadryl for migraine cocktail) for up to 60 doses. 60 tablet 07/08/20 25 Active clotrimazole (Lotrimin) 1 % cream Apply topically 2 times daily. 60 g 2 07/08/20 25 Active metoclopramide (Reglan) 5 MG tablet TAKE 1 TABLET BY MOUTH ONCE IF NEEDED (WITH NAPROXEN AND BENDRYL FOR MIGRAINE COCKTAIL) 30 tablet 08/03/20 25 Active metoclopramide (Reglan) 5 MG tablet Take 1 tablet (5 mg) by mouth 1 (one) time if needed (with Naproxen and Benadryl for migraine cocktail) for up to 30 doses. 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 05/24/2021 Assessment & Plan (06/12/2023 8:48 PM EDT): cont tape fastener machine operator followup Assessment & Plan (05/09/2023 10:10 AM EDT): Pt has a follow up with tape fastener machine operator next month Nicotine dependence 05/24/2021 Assessment [...] pain and nausea, and switch to Jalil AGUIRRE will be submitted due to intolerance of [...] of Trulicity secondary to medication availability -called [facility] pharmacy and confirmed Trulicity 1.5 mg [...] Encounters Date Type Department Care Team Description 08/02/2025 Refill [facility] [address] [place] [address] Sima Kaur MD 07/08/2025 4:00 PM EDT Office Visit [address] [address] Sima Kaur MD Encounter for screening mammogram for malignant neoplasm of breast (Primary Dx); Type 2 diabetes mellitus without complication, without long-term current use of insulin (CMS/HCC); Primary hypertension; Type 2 diabetes mellitus with diabetic nephropathy, without long-term current use of insulin (CMS/HCC); Depression, recurrent (CMS/HCC); Smoker 07/08/2025 Travel 07/07/2025 Telephone [facility] [address] [place] [address] Tereza Vela MA chart prep 06/30/2025 Patient Outreach [facility] [address] [place] [address] Sima Kaur MD Pre-visit Planning ([facility] screening completed on 01/10/2025) 06/21/2025 Refill [facility] [address] [place] [address] Selena Pham FNP Type 2 diabetes mellitus with diabetic nephropathy, without long-term current use of insulin (CMS/HCC) 06/07/2025 Orders Only GENERIC EXTERNAL DATA DEPARTMENT Provider, Generic External Data 05/31/2025 Refill [facility] [address] [place] [address] Sima Kaur MD 05/30/2025 Refill [facility] [address] [place] [address] Sima Kaur MD from Last 3 Months Immunizations Immunization [...] Date Recorded Patient Health Questionnaire-9 Score 14 07/08/2025 Patient Health Questionnaire-9 Score 14 07/08/2025 Last PHQ-9: Questionnaire Data Not on file 0 07/08/2025 Housing Stability Answer Date Recorded What is [...] Date Recorded Patient Health Questionnaire-2 Score 6 07/08/2025 Internet Access Answer Date Recorded Internet Access [...] Sign Reading Time Taken Comments Blood Pressure 132/72 07/08/2025 3:51 PM EDT Pulse 81 07/08/2025 3:51 PM EDT Temperature 36.1 C (96.9 F) 07/08/2025 3:51 PM EDT Respiratory Rate 20 07/08/2025 3:51 PM EDT Oxygen Saturation 98% 07/08/2025 3:51 PM EDT Inhaled Oxygen Concentration - - Weight 66 kg (145 lb 6.4 oz) 07/08/2025 3:51 PM EDT Height 154.9 cm (5' 1 ) 07/08/2025 3:51 PM EDT Body Mass Index 27.47 07/08/2025 3:51 PM EDT Plan of Treatment Upcoming Encounters Date Type Department Care Team (Late st Contact Info) Description 09/20/2025 10:30 AM EST Office Visit [facility] [address] [facility] [place] [address] Sima Kuar MD [address] [facility] [place] [address] Health Maintenance Due Date Last Done Comments CT Colonography 1955 FIT DNA/Cologuard 1955 FIT 1955 FOBT 1955 Sigmoidoscopy 1955 Eye Exam 1965 DTaP/Tdap/Td Vaccines (2 - Td or Tdap) 11/18/2022 11/18/2012, 10/18/2008, 10/06/1996 Lipid Panel 11/24/2024 11/24/2023, 09/20, 01/29/2021, Additional history exists Diabetes: Foot Exam 03/08/2025 03/08/2024, 03/08/2024, 03/08/2024, Additional history exists COVID-19 Vaccine ( season) 2025 08/16/2024, 05/28/2022, 09/26/2021, Additional history exists Influenza Vaccine (#1) 2025 , 07/19/2022, 07/19/2022, Additional history exists Mammogram 07/01/2025 07/01/2024, 06/02/2023, 03/24/2023, Additional history exists Diabetes: Hemoglobin A1C 10/07/2025 025, 01/19/2025, 08/16/2024, Additional history exists Depression Monitoring 01/05/2026 07/08/2025, 025 SDOH Screening 01/10/2026 01/10/2025 Alcohol/Substance Use Screening 07/08/2026 07/08/2025 Tobacco Screening 07/08/2026 07/08/2025 Colonoscopy 12/19/2027 12/18/2022 Colorectal Cancer Screening 01/17/2028 [...] Diagnosis Comments POCT GLYCATED HEMOGLOBIN, TOTAL Routine 07/08/2025 3:55 PM EDT Type 2 diabetes mellitus without complication, without long-term current use of insulin ([facility]) POCT GLUCOSE Routine 07/08/2025 3:54 PM EDT Type 2 diabetes mellitus without complication, without long-term current use of insulin ([facility]) VITAMIN B12/FOLATE, SERUM PANEL Routine 06/07/2025 10:56 AM EDT TSH W/REFLEX TO FT4 Routine 06/07/2025 1 0:56 AM EDT FERRITIN Routine 06/07/2025 10:56 AM EDT SED RATE BY MODIFIED WESTERGREN Routine 06/07/2025 10:56 AM EDT C-REACTIVE PROTEIN Routine 06/07/2025 10 :56 AM EDT IRON AND TOTAL IRON BINDING CAPACITY Routine 06/07/2025 10:56 AM EDT MAGNESIUM Routine 06/07/2025 10:56 AM EDT COMPREHENSIVE METABOLIC PANEL, FASTING Routine 06/07/2025 10:56 AM EDT CBC WITH AUTO DIFFERENTIAL Routine 06/07/2025 10:56 AM EDT BI MAMMOGRAM SCREENING TOMOSYNTHESIS BILATERAL Routine 07/01/2024 [...] to Health Maintenance Results * (ABNORMAL) POCT Hgb A1c (07/08/2025 3:55 PM EDT) Hemoglobin A1C 7.9(A) 4.0 - 5.7 % QC Media Lot # [id number] Lot# Expiration Date [id number] Blood 07/08/2025 3:55 PM EDT Sima Kaur MD POINT OF CARE TEST ENTER/EDIT ORDERABLES Final Result * POCT Glucose (07/08/2025 3:54 PM EDT) Glucose Blood, POC 116 60 - 200 mg/dL QC Media Lot # [id number] Lot# Expiration Date ,[id number] Blood Capillary blood specimen / Unknown 07/08/2025 3:54 PM EDT Sima Kaur MD POINT OF CARE TEST ENTER/EDIT ORDERABLES Final Result * (ABNORMAL) Comprehensive Metabolic Panel, Fasting (06/07/2025 10:56 AM EDT) Sodium 142 135 - 145 mmol/L [facility] Potassium 3.5 3.3 - 5.1 mmol/L [facility] Chloride 106 96 - 108 mmol/L [facility] Carbon Dioxide 26 22 - 29 mmol/L [facility] Anion Gap 14 12 - 20 [facility] Urea Nitrogen (BUN) 23(H) 9 - 16 mg/dL [facility] Creatinine, Serum 0.97 0.5 - 1.4 mg/dL [facility] Estimated Glomerular Filt Rate 57 [facility] Comment:Chronic Kidney Disea se: Estimated GFR < 60 mL/min/1.41t3Ahavok Kidney Disease: Estimated GFR < 15 mL/min/1.73m2 Glucose Fasting 202(H) 60 - 99 mg/dL [facility] Comment:A fasting glucose of 126 mg/dl or greater on more than oneoccasion is considered diagnostic of diabetes. Calcium 9.7 8.4 - 10.2 mg/dL [facility] Bilirubin, Total 1.0 0.0 - 1.0 mg/dL [facility] Aspartate Amino Transferase 25 5 - 31 U/L [facility] Alanine Aminotransferase 33(H) 0 - 31 U/L [facility] Total Protein 6.8 6.5 - 8.0 g/dL [facility] Albumin Level 4.5 3.5 - 5.0 g/dL [facility] Alkaline Phosphatase 106 39 - 117 U/L [facility] 06/07/2025 10:5 6 AM EDT 06/07/2025 10:56 AM EDT us Generic External Data Provider LAB BLOOD ORDERAB LES Final Result Performing Organization Address City/[facility]/ZIP Co de Phone Number [facility] [address] [place] [phone] * Vitamin B12 (Cobalamin) and Folate Panel, Serum (06/07/2025 10:56 AM EDT) Vitamin B12 754 200 - 900 pg/mL [facility] Comment:NORMAL 200-900 PG/ML INDETERMINATE 160-199 PG/ML DEFICIENT < 160 PG/ML Folate 10.7 > or = 4.0 ng/mL [facility] Comment:Reference Values:> o r = 4.0 ng/mL< 4.0 ng/mL suggests folate deficiency Methotrexate, aminopterin and folinic acid(leucovorin) are chemotherapeutic agents whose molecularstructures are similar to folate; therefore, the Architectfolate assay cannot be used for patients using these drugs. 06/07/2025 10:5 6 AM EDT 06/07/2025 10:56 AM EDT us Generic External Data Provider LAB BLOOD ORDERAB LES Final Result Performing Organization Address [facility] Co de Phone Number [facility] [address] [place] [phone] * TSH with Reflex to Free T4 (06/07/2025 10:56 AM EDT) TSH reflex Free T4 1.53 0.32 - 4.0 uIU/mL [facility] 06/07/2025 10:5 6 AM EDT 06/07/2025 10:56 AM EDT us Generic External Data Provider LAB BLOOD ORDERAB LES Final Result Performing Organization Address City/[facility]/ZIP Co de Phone Number [facility] [address] [place] [address] [phone] * CBC auto differential (06/07/2025 10:56 AM EDT) White Blood Count 8.9 4.8 - 10.8 X10*3/uL [facility] Red Blood Count 4.66 4.20 - 5.50 X10*6/uL [facility] Hemoglobin 14.5 12.0 - 16.0 g/dl [facility] Hematocrit 43.4 37.0 - 47.0 % [facility] Mean Corpuscular Volume 93.1 80.0 - 98.0 fL [facility] Mean Corpuscular Hemoglobin 31.1 27.0 - 33.0 pg [facility] Mean Corpuscular HGB Conc 33.4 31.0 - 35.0 g/dl [facility] Red Cell Distribution Width 13.6 11.0 - 16.0 % [facility] Platelet Count 233 160 - 400 X10*3/uL [facility] Mean Platelet Volume 10.8 9.4 - 12.3 fL [facility] Neutrophils Percent Auto 58.9 45 - 73 % [facility] Imm Gran Pct Auto 0.2 0.0 - 0.4 % [facility] Lymphocytes Percent Auto 29.0 20 - 40 % [facility] Monocytes Percent Auto 9.3 2 - 11 % [facility] Eosinophils Percent Auto 1.8 0 - 4 % [facility] Basophils Percent Auto 0.8 0 - 2 % [facility] NRBC Pct Auto 0.0 0.0 - 0.2 /100WBC [facility] Neutrophils Absolute Auto 5.2 2.0 - 8.3 x10*3/uL [facility] Imm Gran Abs Auto 0.02 0.00 - 0.03 X10*3/uL [facility] Lymphocytes Absolute Auto 2.6 1.2 - 4.9 X10*3/uL [facility] Monocytes Absolute Auto 0.8 0.1 - 1.2 X10*3/uL [facility] Eosinophils Absolute Auto 0.2 0.0 - 0.4 X10*3/uL [facility] Basophils Absolute Auto 0.1 0.0 - 0.2 X10*3/uL [facility] NRBC Abs Auto 0.000 0.0 - 0.012 X10*3/uL [facility] 06/07/2025 10:5 6 AM EDT 06/07/2025 10:56 AM EDT us Generic External Data Provider LAB BLOOD ORDERAB LES Final Result Performing Organization Address [facility] Co de Phone Number [facility] [address] [place] [address] [phone] * Iron And Total Iron Binding Capacity (06/07/2025 10:56 AM EDT) Iron 72 30 - 160 mcg/dL [facility] Total Iron Binding Capacity 241 228 - 428 mcg/dL [facility] Percent Iron Saturation 30 15 - 50 % [facility] Unsaturated Iron Binding 169 ug/dL [facility] 06/07/2025 10:5 6 AM EDT 06/07/2025 10:56 AM EDT us Generic External Data Provider LAB BLOOD ORDERAB LES Final Result Performing Organization Address [facility] de Phone Number [facility] [address] [place] [address] [phone] * Sed Rate by Modified Gómez (06/07/2025 10:56 AM EDT) Erythrocyte Sedimentation Rate 7 0 - 20 MM/HR [facility] Comment:Patients with polycy themia and many hemoglobin abnormalitiesmay have depressed sed rates whereas patients with anemiamay have elevated sed rates. 06/07/2025 10:5 6 AM EDT 06/07/2025 10:56 AM EDT us Generic External Data Provider LAB BLOOD ORDERAB LES Final Result Performing Organization Address City/[facility]/ZIP Co de Phone Number [facility] [address] [place] [phone] * C-reactive Protein (06/07/2025 10:56 AM EDT) C Reactive Protein 0.25 < or = 0.50 mg/dL [facility] 06/07/2025 10:5 6 AM EDT 06/07/2025 10:56 AM EDT us Generic External Data Provider LAB BLOOD ORDERAB LES Final Result Performing Organization Address [facility] Co de Phone Number [facility] [address] [place] [phone] * Magnesium (06/07/2025 10:56 AM EDT) Magnesium 2.0 1.6 - 2.6 mg/dL [facility] 06/07/2025 10:5 6 AM EDT 06/07/2025 10:56 AM EDT us Generic External Data Provider LAB BLOOD ORDERAB LES Final Result Performing Organization Address [facility] Phone Number [facility] [address] [place] [phone] * Ferritin (06/07/2025 10:56 AM EDT) Ferritin 142 10 - 250 ng/mL [facility] 06/07/2025 10:5 6 AM EDT 06/07/2025 10:56 AM EDT us Generic External Data Provider LAB BLOOD ORDERAB LES Final Result Performing Organization Address [facility] de Phone Number [facility] [address] [place] [phone] * BI Mammogram Screening Tomosynthesis Bilateral (07/01/2024 11:30 AM EDT) Anatomical Region Laterality Modality Breast Bilateral Mammography 07/01/2024 11:3 0 AM EDT Narrative 07/14/2024 7:50 PM EDT [facility] [address] [place] [address] Mammography Report Signed Patient: Stephanie Luz MR#: [id number] : 1955 Acct:[id number] Age/Sex: 69 / F ADM Date: 07/01/24 Loc: HO.MAMMO Attending Dr: Sima Kaur MD Ordering Physician: Sima Kaur Results: 0Incomple te: Needs Additional Imaging Evaluation Date of Service: 07/01/24 Follow Up: Additional Imagi ng Procedure(s): MM tomosynthesis screening BI Accession Number(s): [id number] cc: Sima Kaur EXAMINATION: MM SCREENING DIGITAL [...] OV> 07/14/241946 DD/ 1130 TD/TT: 07/01/24 1149 Production Leader: Procedure Note Angelater, Image - 07/14/2024 [facility] [address] [place] [address] Mammography Report Signed Patient: Stephanie LuzMR#: [id number] : 7Acct:[id number] Age/Sex: 69 / FADM Date: 07/01/24 Loc: HO.MAMMO Attending Dr: Sima Kaur MD Ordering Physician: Kleber Kaurults: 0Incomple te: Needs Additional Imaging Evaluation Date of Service: 07/01/24Follow Up: Additional Imagi ng Procedure(s): MM tomosynthesis screening BI Accession Number(s): [id number] cc: Sima Kaur EXAMINATION: MM SCREENING DIGITAL [...] OV> 07/14/241946 DD/ 1130 TD/TT: 07/01/24 1149 Production Leader: Sima Kaur MD IMG BI PROCEDURES Edited Resul t - Final * Hepatitis C Antibody with Reflex to HCV, RNA, Quantitative, Real-Time PCR (05/25/2024 11:37 AM EDT) Hepatitis C Antibody Nonreactive Nonreactive [facility] Comment:Antibodies to HCV no t detected; does not exclude early acuteHCV infection. Blood Venous blood specimen / Unknown 05/25/2024 11:37 AM EDT 05/25/2024 1:24 PM EDT Sima Kaur MD LAB BLOOD ORDERABLES Final Res ult [facility] [address] [place] [phone] * (ABNORMAL) Lipid Panel, Standard (11/24/2023 12:45 PM EST) Triglycerides 186(H) <150 mg/dL [facility] Comment:Desirable Triglyceri de: less than 150 mg/dLBorderline High Triglyceride 150-199 mg/dLHigh Triglyceride: 200-499 mg/dLVery High Triglyceride: greater than or equal to 5OO mg/dL Cholesterol 103 <200 mg/dL [facility] Comment:Desirable Cholestero l: less than 200 mg/dLBorderline High Cholesterol: 200-239 mg/dLHigh Cholesterol: greater than 239 mg/dL LDL Cholesterol Calculated 37 <100 mg/dL [facility] Comment:Desirable LDL: less than 100 mg/dLNear Optimal/Above Optimal LDL: 110- 129 mg/dLBorderline High LDL: 130-159 mg/dLHigh LDL: 160-189 mg/dLVery High LDL: greater than or equal to 190 mg/dL HDL Cholesterol 29(L) >40 mg/dL [facility] Comment:Desirable HDL: great er than 40 mg/dL Note: This HDL assay may give artificially low results in patients with liver disease. Blood Venous blood specimen / Unknown 11/24/2023 12:45 PM EST 11/24/2023 1:10 PM EST Sima Kaur MD LAB BLOOD ORDERABLES Final Res ult Performing Organization Address [facility] Co de Phone Number [facility] [address] [place] [phone] * HPV mRNA E6/E7 w/Reflex to HPV Genotypes 16, 18/45 (2023 12:00 AM EDT) HPV nRNA E6/E7 Not Detected Not Detected [facility] Comment:Methodology: Transcr iption-Mediated AmplificationThis assay detects E6/E7 viral messenger RNA (mRNA) from 14high-risk HPV types (16,18,31,33,35,39,45,51,52,56,58,59,66,68).Cervical sources are required for HPV testing.If a vaginal source from a patient who has had atotal hysterectomy with removal of cervix wassubmitted, please contact the testing laboratoryfor alternative testing options.For additional information, please refer [email or web address]/[email or web address](This link if provided for information/educational purposes only.)THIS TEST WAS PERFORMED AT:[facility] [place] [id number] NEWMAN MD HPV mRNA E6/E7 [facility] HPV 16 RNA [facility] HPV 18/45 RNA [facility] 2023 06/16/2023 1:5 0 PM EDT Sima Kaur MD LAB CYTOLOGY ORDERABLES Final Result Performing Organization Address [facility] Co de Phone Number [facility] [address] [place] [phone] * Pap Smear (2023) 2023 06/16/2023 1:5 0 PM EDT Narrative [facility] - 06/28/2023 2:14 PM EDT ----- ------- Name: Stephanie Luz Age/Sex: 68/F : 1955 Unit#: [id number] Attend Dr: Sima Kaur Re06/13/23 Status: DEP REF Location: HO.LNP Disch: ----- ------- SPEC : [id number] RECD: 06/16/23-1349 STATUS: FAWAD KIRBY NUM: [id number] CAMI: 06/13/23- SUBM DR: Sima Kaur ENTERED: 06/16/23-4587 SP TYPE: Pap Smr OTHR DR: ORDERED: Pap Smear Interpretation Satisfactory for evaluation. Negative for intraepithelial lesion or malignancy. HPV mRNA E6/E7: NOT DETECTED This assay detects E6/E7 viral messenger RNA (mRNA) from 14 high-risk HPV types (16, 18, 31, 33, 35, 39, 45, 51, 52, 56, 58, 59, 66, 68) HPV testing performed by [facility], [place], [place]. See reference laboratory portion of the EMR for entire report. Clinical Information LMP:Unknown date Previous PAP test:Unknown date/findings Material Received ThinPrep-Vaginal/Cervical ----- ------- Signed (signature on file) Lin Colon 06/28/23 1414 ----- ------- END OF REPORT Sima Kaur MD LAB CYTOLOGY ORDERABLES Final Result [facility] [address] [place] [address] [phone] * Colonoscopy (12/18/2022) Anatomical Region Laterality Modality Endoscopy Impressions 12/18/202212/2022 Had a TA x 2 + hyperplastic polyp Historical Provider ENDOSCOPY PROCEDURE ORDER RICARDO Final Result from Last 3 Months or Most Recently Relevant to Health Maintenance Insurance [facility] CARE HOME OPTIONS (HMO D-SNP) Care Teams Hat Body Inspector Relationship Specialty Start Date End Date Sima Kaur MD [address] [place] [id number] PCP - General Family Medicine 11/28/20
--- OUTSIDE RECORDS SUMMARY | 2025-08-19 12:57 | XMS_ITS | Encounter Summary ---
Author Organization [facility] Address [address] [facility] [address] [place] [address] Phone Care Team Providers Care Security Police Officer Name Role Phone Sima Kaur MD Primary Care Provider + [phone] Reason for Visit * Reason Comments Med Refill Encounter Details Date Type Department Care Team (Late Contact Info) Description 07/03/2022 Refill [facility] [address] [place] [address] Blayne Corral [...] Visit [facility] [address] [place] [address] Fazal Ohara MD 29[address] [facility] 204 [place] [address] documented as of this encounter Visit Diagnoses Not on filedocumented in this encounter Care Teams Security Police Officer Relationship Specialty Start Date End Date Sima Kaur MD [address] [place], [place] [phone] PCP - General Press Operator Printing 05/24/21 documented as of this encounter
--- OUTSIDE RECORDS SUMMARY | 2025-08-19 12:57 | XMS_ITS | Encounter Summary ---
Author Organization [employer] Address [address] [place] [address] Care Team Providers Care Cut Off Machine Operator Name Role Phone Sima Kaur MD Primary Care Provider Encounter Details Date Type Department Care Team (Late Contact Info) Description 06/20/2023 Orders Only [facility] [address] [place] [address] [phone] Sima Kaur MD [address] [place] [address] [phone] Poison abraham dermatitis (Primary Dx) Social History [...] Department Care Team (Late Contact Info) Description 09/20/2025 10:30 AM EST Office Visit [facility] [address] [place] [address] [phone] Sima Kaur MD [address] [place] [address] [phone] documented as of this encounter Visit Diagnoses Diagnosis Poison abraham dermatitis- Primary documented in this encounter Additional Health Concerns Assessment Noted Time PHQ-9 Depression Total Score: 9 03/03/20 23 9:28 AM EDT documented as of this encounter Care Teams Cut Off Machine Operator Relationship Specialty Start Date End Date Sima Kaur MD [address] [place] [address] PCP - General Family Medicine 11/28/20 documented as of this encounter
--- OUTSIDE RECORDS SUMMARY | 2025-08-19 12:57 | XMS_ITS | Encounter Summary ---
Author Organization [employer] Address [address] [place] [address] Care Team Providers Care Director Of Collections And Archives Name Role Phone Sima Kaur MD Primary Care Provider [phone] Encounter Details Date Type Department Care Team (Late Contact Info) Description 01/10/2023 Abstract [facility] [address] [place] [address] [phone] Sima Kaur MD [address] [place] [address] [phone] Social History Tobacco Use Types Packs/Day Years [...] Description 09/20/2025 10:30 AM EST Office Visit [facility] [address] [place] [address] [phone] Sima Kaur MD [address] [place] [address] [phone] documented as of this encounter Procedures Procedure Name Priority Date/Time Associated Diagnosis Comments MAMMOGRAPHY Routine 05/15/2022 PAP SMEAR Routine 07/11/2020 12:00 AM EDT documented in this encounter Results * Mammography (05/15/2022) Mammogram completed mammo Anatomical Region Laterality Modality Other Historical Provider HEALTH MAINTENANCE Final Result * Pap Smear (07/11/2020 12:00 AM EDT) Swab Historical Provider LAB CYTOLOGY ORDERABLES F inal Result [facility] [address] [place] [address], [place] [address] documented in this encounter Visit Diagnoses Not on filedocumented in this encounter Care Teams Director Of Collections And Archives Relationship Specialty Start Date End Date Sima Kaur MD [address] [place] [address] PCP - General Family Medicine 11/28/20 documented as of this encounter
== END 2025-08-19 11:22 | disposition home or self-care (01) ==
LOC: HO.MAMMO 11:21
PROVIDERS: PCP General Practice; Visit Provider General Practice
DX: Z12.31 Encounter for screening mammogram for malignant neoplasm of breast (principal)
CPT/HCPCS: 77063; 77067

== ENCOUNTER → 2025-08-19 11:30 | Outpatient (BNV) | payer OTHER, SELFPAY | PROVIDERS: PCP General Practice; Visit Provider Internal Medicine | DX: Z12.31 Encounter for screening mammogram for malignant neoplasm of breast (principal) | CPT/HCPCS: 77063; 77067 ==

== ENCOUNTER 2025-08-23 10:57 | Outpatient (AMB) | payer OTHER, SELFPAY ==
--- NOTE | 2025-08-23 10:58 | A.OFFVIS_ITS ---
Vital Signs 08/23/25 11:00 Height 5 ft 1 in Weight 145 lb 8.081 oz BMI 27.5 BP 138/67 Blood Pressure Location Lt brachial Position Sitting Pulse 77 Intake Visit Reasons: Celiac, dysphagia Intake Note: Stephanie presents in the office as a follow up for dysohagia and celiac. CC: States she still has issues with swallowing but she is scheduled next month for EGD. Pleating Machine Operator Required: No Allergies codeine Adverse Reaction (Intermediate, Verified 08/23/25 11:01) vertigo, nausea HPI HPI Celiac, dysphagia: Details: Assessment & Plan (1) Dysphagia: Code(s): R13.10 - Dysphagia, unspecified Category: Medical (2) GERD (gastroesophageal reflux disease): Comment: Resolved with celiac diet Code(s): K21.9 - Gastro-esophageal reflux disease without esophagitis Category: Medical (3) Celiac disease: Code(s): K90.0 - Celiac disease Category: Medical (4) Pre-op examination: Code(s): Z01.818 - Encounter for other preprocedural examination Category: Medical Plan Her epigastric pain is better, Celiac markers high so likely hidden gluten sources....but now she is being more strict with her diet and Googleing ingredients to try to improve her avoidance of gluten. Dysphagia at sternal notch. Responded well in past to dilation. Repeat. In all, she had good relief for about 3 months. She has sleep apnea and denies any other respiratory or cardiac problems. There are no prior problems with anesthesia or sedation. There are no infectious disease problems. ROV 6 mos. Orders: Orders EGD - GI Use Only Today R13.10 - Dysphagia, unspecified EGD 09/27/2025 BIOPSY TODAY'S VISIT [facility] Medical History Hand pain, right Nausea and vomiting Bleeding hemorrhoids Nausea Epigastric pain Chronic migraine without aura Carpal tunnel syndrome of left wrist Pain of left thumb Numbness and tingling in left hand Carpal tunnel syndrome of right wrist Right arm numbness Arthritis of right shoulder region GERD (gastroesophageal reflux disease) Spondylosis of lumbar spine Diabetes High cholesterol HTN (hypertension) Back pain, chronic Migraines Surgical History S/P carpal tunnel release History of fusion of cervical spine History of carpal tunnel release History of hemorrhoidectomy (~04/01/23) History of esophagogastroduodenoscopy (EGD) Hx of fusion of cervical spine Hx of colonoscopy Hx of cholecystectomy Hx of tubal ligation Family History Father History of heart attack Mother Hx of type 1 diabetes mellitus Family history of high blood pressure Social History Alcohol intake: never Patient Tobacco Use Status: Current everyday Tobacco user Tobacco use type: Cigarette Cigarette Packs Per Day: 0.5 Cigarettes Per Day: 10 Years Smoked: 45 Current occupational status: employed 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 Review of Systems Const Reports difficulty sleeping, Reports fatigue, Denies fever(s), Reports headache(s), Denies night sweats, Denies poor appetite and Denies weight loss ENT Reports Normal hearing present, Denies dental pain, Reports dysphagia, Reports headache(s), Denies hearing loss, Denies mouth pain, Reports neck pain, Denies odynophagia, Denies throat swelling, Denies tongue swelling and Reports other (Dentition adequate) Card Reports no additional complaints Resp Reports no additional complaints GI Details: Denies abdominal pain, Denies melena, Denies bloating, Denies hematochezia, Denies constipation, Denies GI cramping, Reports dysphagia, Denies excessive flatus, Denies early satiety, Reports heartburn, Denies diarrhea, Reports nausea (migranine mediated), Denies odynophagia, Reports vomiting and Denies hematemesis Musc Reports neck pain, Reports radiating pain into limb and Reports stiffness Skin/Breast Denies pruritus, Denies lesions, Denies rash and Denies jaundice Neuro Reports Normal hearing present, Denies Abnormal speech present and Reports headache(s) Psych Details: Some subjective agoraphobia Reports abnormal sleep pattern, Reports anxiety, Reports depression, Reports difficulty concentrating, Reports irritability, Denies homicidal ideation and Denies suicidal ideation Endo Reports fatigue Aller/Immun Denies throat swelling and Denies tongue swelling Physical Exam Vital Signs: Last Vital Signs Pulse 77 08/23/25 11:00 BP 138/67 08/23/25 11:00 BMI result Body Mass Index 27.5 Const General: cooperative, no acute distress, well developed and well groomed Nutritional Appearance: well nourished and overweight Orientation/consciousness: oriented to person, oriented to place and oriented to time Limitations: No language barrier HEENT Head: Yes normocephalic and Yes atraumatic Eyes General: appearance normal, both eyes and all related structures Pupils: Equal, round and reactive pupils present Neck Neck: Yes normal visual inspection and Yes no lymphadenopathy Thyroid: Thyroid normal Resp Effort & Inspection: normal respiratory effort and able to speak in complete sentences Auscultation: clear to auscultation bilaterally Cardio Rate: regular rate Rhythm: regular rhythm Heart sounds: Normal, physiologic split S2 sound present Peripheral pulses: radial pulses present and posterior tibial pulses present GI Inspection: No distended, No Abdominal panniculus present and Yes obesity Palpation (GI): Soft to palpation, nontender, no guarding, not rigid and No hepatosplenomegaly present Percussion: Yes normal to percussion Auscultation: normal bowel sounds Rectal Exam - Female: deferred Skin General skin exam: no rashes or lesions noted, turgor normal, skin not dry, no jaundice, No spider nevi and no striae Rashes: no rashes Nails: normal Neuro General: oriented to person, oriented to place and oriented to time Cranial nerves: Yes Equal, round and reactive pupils present and Yes Normal hearing present Speech: No Abnormal speech present Extrem General: Yes normal to inspection, No clubbing, No cyanosis and No edema Psych Appearance: grossly normal and well kempt Mental Status: mental status grossly normal Speech and movement: Normal speech and movement present Affect: Labile affect present, Sad affect present and Irritable affect present Attitude: cooperative Thought process: Normal thought process present and not confabulating Thought content: Normal thought content present Insight: Fair insight present (Psych) Judgement: Fair judgement present (Psych) Assessment & Plan Assessment & Plan (1) Dysphagia: Code(s): R13.10 - Dysphagia, unspecified Category: Medical (2) Celiac disease: Code(s): K90.0 - Celiac disease Category: Medical Plan This is a patient who has celiac disease with historically poor compliance with the avoidance diet. When she is off her diet she has trouble with nausea vo miting GERD and constipation. When she is following the diet she does well. In the past she has utilize famotidine and Linzess, but since she has been on the diet she has not needed these medications. Her biggest complaint now is with persistent daily headaches. She has tried many many migraine prophylactic treatments without success. Apparently they are considering doing a prednisone challenge, and she wants to know if this is okay from a GI perspective which it is. She has ongoing dysphagia which seems to be a tightness in her upper throat that had some response with dilation in the pa st. She asks me why this happens, and I tell her it could be anything from genetic to even related to her severe anxiety and spasms of the esophagus. With this she tells me that she feels muscle spasm is a great deal of her problem contributing to her headaches. She is also endorsing pretty significant anxiety along with depression, tearfulness, a lack of desire to leave her home, and insomnia. Because she seems to be in significant distress I offer her a trial of Prozac (she has tried agents such as TCAs, Topamax etc. for her migraines without any help for her mood) but she says she will be hearing back from pain management today and she wants to see what they are going to do 1st. This of course is acceptable. Another alternative for her could be mirtazapine. She has her EGD upcoming on September 27 and I will see her after this procedure. EGD 09/27/2025 BIOPSY Coding Level of Care Code Est Pt Level 4 (79539) Diagnoses Dysphagia R13.10 Celiac disease K90.0 Time Spent (min) 36
[2025-08-23 11:00] VITALS: BP 138/67; PULSE 77; BMI 27.5
== END 2025-08-23 12:38 | disposition home or self-care (01) ==
LOC: HO.HGI 10:57
PROVIDERS: PCP General Practice; Visit Provider Nurse Practitioner
DX: R13.10 Dysphagia, unspecified (principal); K90.0 Celiac disease
CPT/HCPCS: 99214

== ENCOUNTER → 2025-08-23 10:57 | Outpatient (BNVA) | payer OTHER, SELFPAY | PROVIDERS: PCP General Practice; Visit Provider Nurse Practitioner | DX: R13.10 Dysphagia, unspecified (principal); K90.0 Celiac disease | CPT/HCPCS: 99212 ==

== ENCOUNTER 2025-09-27 06:50 | Day surgery (SDC) | payer OTHER, SELFPAY ==
--- OUTSIDE RECORDS SUMMARY | 2025-09-07 03:30 | XMS_ITS | Encounter Summary ---
Author Organization [facility] Address [address] [facility] [address] [place] [address] Phone Care Team Providers Care Capacitor Tester Name Role Phone Sima Kaur MD Primary Care Provider + [phone] Reason for Visit * Reason Comments Med Refill Encounter Details Date Type Department Care Team (Late Contact Info) Description 05/12/2023 Refill [facility] [address] [place] [address] Blayne Corral MD [address] [place] [address] Social History Tobacco Use Types Packs/Day Years Used Date Smoking Tobacco: Every Day Cigarettes 0.5 42.9 Started: [birth year]/20/1982 Smokeless Tobacco: Never Alcohol Use [...] Office Visit [facility] [address] [place] [address] Fazal Ohara MD [address] [facility] [address] [place] [address] documented as of this encounter Visit Diagnoses Not on filedocumented in this encounter Care Teams Capacitor Tester Relationship Specialty Start Date End Date Sima Kaur MD [address] [place] [address] PCP - General Data Software Engineer 05/24/21 documented as of this encounter
--- OUTSIDE RECORDS SUMMARY | 2025-09-07 03:30 | XMS_ITS | Encounter Summary ---
Author Organization [facility] Address [address] [facility] [address] [place] [address] Phone Care Team Providers Care Shop Service Technician Name Role Phone Sima Kaur MD Primary Care Provider + [phone] Reason for Visit * Reason Comments Med Refill Encounter Details Date Type Department Care Team (Late Contact Info) Description 06/03/2022 Refill [facility] [place] [address] [facility] [address] [place] [id number] Chester Alves MD [address] [address] Social History Tobacco Use Types [...] Visit [facility] the [address] [place] [address] Fazal Ohara MD [address] [facility] [address] [place] [address] documented as of this encounter Visit Diagnoses Not on filedocumented in this encounter Care Teams Shop Service Technician Relationship Specialty Start Date End Date Sima Kaur MD [address] [place] [address] PCP - General Schedule Supervisor 05/24/21 documented as of this encounter
--- OUTSIDE RECORDS SUMMARY | 2025-09-07 03:30 | XMS_ITS | Clinical Summary ---
Author Organization [facility] Address [address] [place] [address], [place] [address] Care Team Providers Care Licensed Master Social Worker Name Role Phone Sima Kaur MD Primary Care Provider + [phone] Allergies Active Allergy Reactions Criticality Noted Date Comments Amoxicillin 04/27/2021 Other reaction(s): GI Problems Clavulanic Acid 04/27/2021 Clonidine Other (see comments) 05/24/2021 Medications cholecalcifero l (VITAMIN D-3) 25 MCG (1000 UT) capsule Take 1 capsule by mouth 1 (one) time each day Active glipiZIDE (GLUCOTROL XL) 5 MG 24 hr tablet Take 20 mg by mouth 1 (one) time each day with breakfast Active hydroCHLOROthi azide 25 MG tablet Take 25 mg by mouth every morning Active atenolol (TENORMIN) 50 MG tablet Take 75 mg by mouth 1 (one) time each day Active simvastatin (ZOCOR) 20 MG tablet Take 20 mg by mouth 1 (one) time each day in the evening Active cyclobenzaprin e (FLEXERIL) 10 MG tablet Take 1 tablet by mouth 3 (three) times a day Active clonazePAM (KlonoPIN) 0.5 MG tablet Take by mouth at bed time Active atorvastatin (LIPITOR) 40 MG tablet Active senna (SENOKOT) 8.6 MG tablet Active Trulicity 0.75 MG/0.5ML solution pen-injector Active amLODIPine (NORVASC) 2.5 MG tablet Take 1 tablet by mouth once daily 90 tablet 3 Active Additional Information Patient not taking.Reported on 06/30/2025 Mounjaro 2.5 MG/0.5ML solution auto-injector INJECT 2 & 1/2 (TWO & ONE-HALF) MG SUBCUTANEOUSLY ONCE A WEEK 025 Active lisinopril 20 MG tablet Take 1 tablet by mouth once daily 90 tablet 025 Active Dapagliflozin Propanediol 5 MG tablet Take 1 tablet by mouth once daily 30 tablet 025 Active Farxiga 5 MG tablet Take 1 tablet by mouth once daily 30 tablet 025 2024 Discontinued Active Problems Problem [...] Encounters Date Type Department Care Team Description 08/23/2025 Refill [facility] [address] [place] [address] Fazal Ohara MD 07/25/2025 Refill [facility] [place] [address] [place] [address] Fazal Ohara MD 07/12/2025 Refill [facility] [address] [place] [address] Fazal Ohara MD 06/30/2025 1:00 PM EDT Office Visit [facility] [address] [place] [address] Fazal Ohara MD Chronic kidney disease stage 2 (Primary Dx); Hypertensive disorder 06/28/2025 Refill [facility] [place] [address] [place] [address] Fazal Ohara MD 06/25/2025 Refill [facility] [address] [place] [address] Fazal Ohara MD from Last 3 Months [...] Visit [facility] [address] [place] [address] Fazal Ohara MD 20[address] [facility] [address] [place] [phone] Health Maintenance Due Date Last Done Comments [...] % PVNMA 07/12/2020 us Rtama Conversion LAB [id number] LICITED RESULTS Final Result PVNMA from Last 3 Months or Most Recently Relevant to Health Maintenance Insurance [facility] ([id number]) [facility] ([id number]) Care Teams Licensed Master Social Worker Relationship Specialty Start Date End Date Sima Kaur MD [facility] [place] [address] PCP - General Licensed Master Social Worker 05/24/21
--- OUTSIDE RECORDS SUMMARY | 2025-09-07 03:30 | XMS_ITS | Encounter Summary ---
Author Organization [facility] Address [address] [facility] [address] [place] [address] Phone Care Team Providers Care Char Dust Cleaner And Salvager Name Role Phone Sima Kaur MD Primary Care Provider + [phone] Reason for Visit * Reason Comments Med Refill Encounter Details Date Type Department Care Team (Late Contact Info) Description 06/11/2023 Refill [facility] [address] [place] [address] Blayne Corral MD [address] [place] [address] Social History Tobacco Use Types Packs/Day Years [...] Visit [facility] [address] [place] [address] Fazal Ohara MD 12[address] [facility] [address] [place] [address] documented as of this encounter Visit Diagnoses Not on filedocumented in this encounter Care Teams Char Dust Cleaner And Salvager Relationship Specialty Start Date End Date Sima Kaur MD [address] [place] [address] PCP - General Patient Access Associate 05/24/21 documented as of this encounter
--- OUTSIDE RECORDS SUMMARY | 2025-09-07 03:30 | XMS_ITS | Encounter Summary ---
Author Organization [facility] Address [address] [facility] [address] [place] [address] Phone Care Team Providers Care Radiologic Technician Name Role Phone Sima Kaur MD Primary Care Provider + [phone] Reason for Visit * Reason Comments Med Refill Encounter Details Date Type Department Care Team (Late Contact Info) Description 07/03/2022 Refill [facility] [address] [place] [address] Blayne Corral MD [address] [place] [address] Social History Tobacco Use Types Packs/Day Years [...] Office Visit [facility] [address] [place] [address] Fazal Ohara MD 2[address] [facility] [address] [place] [address] documented as of this encounter Visit Diagnoses Not on filedocumented in this encounter Care Teams Radiologic Technician Relationship Specialty Start Date End Date Sima Kaur MD [address] [place] [address] PCP - General Medical Office Representative 05/24/21 documented as of this encounter
--- NOTE | 2025-09-23 10:28 | HO.ANESPROP2 ---
Documented by User: Betty Parker NP 09/23/25 10:29 HPI - Anesthesia Eval Consult details Narrative: 70yo F for Upper Endoscopy with Balloon Dilitation [place] [facility] [place]. Last office visit 12/2024, asymptomatic. EKG and ECHO updated and [place] [facility] Active Problems Active Problems: All Active Problems S/P carpal tunnel release (Acute) Hand pain, right (Acute) Cervical radiculopathy (Acute) Pre-op examination (Acute) Abnormal EKG (Acute) Dysphagia (Acute) Status migrainosus (Acute) Hypokalemia (Acute) Fatigue (Acute) Paresthesia (Acute) GERD (gastroesophageal reflux disease) (Acute) Arthritis of carpometacarpal (CMC) joint of right thumb (Acute) Postoperative pillar pain (Acute) Carpal tunnel syndrome (Acute) Celiac disease (Acute) Chronic idiopathic constipation (Acute) Impingement syndrome of right shoulder (Acute) Tubular adenoma of colon (Acute) Sacroiliac joint dysfunction (Acute) Cervicalgia (Acute) SHUN (obstructive sleep apnea) (Acute) Sleep difficulties (Acute) Restless leg syndrome (Acute) Diabetes (Acute) High cholesterol (Acute) HTN (hypertension) (Acute) Spondylosis of lumbar spine (Acute) Past Medical History Medical History Hand pain, right Nausea and vomiting Bleeding hemorrhoids Epigastric pain Chronic migraine without aura Carpal tunnel syndrome of left wrist Pain of left thumb Numbness and tingling in left hand Carpal tunnel syndrome of right wrist Right arm numbness Arthritis of right shoulder region GERD (gastroesophageal reflux disease) Spondylosis of lumbar spine Diabetes High cholesterol HTN (hypertension) Back pain, chronic Family History Family History Father History of heart attack Mother Hx of type 1 diabetes mellitus Family history of high blood pressure Family history of problems with anesthesia: No Surgical History Surgical History S/P carpal tunnel release History of fusion of cervical spine History of carpal tunnel release History of hemorrhoidectomy (04/01/23) History of esophagogastroduodenoscopy (EGD) (12/30/24) Hx of fusion of cervical spine Hx of colonoscopy Hx of cholecystectomy Hx of tubal ligation History of Problems with Anesthesia: No Social History Social History Alcohol intake: never Patient Tobacco Use Status: Current everyday Tobacco user Tobacco use type: Cigarette Cigarette Packs Per Day: 0.5 Cigarettes Per Day: 10 Years Smoked: 45 Smoked in Last 30 Days: Yes Use of substances other than those prescribed or required for medical reasons: No Have you been hit, kicked, punched, or otherwise hurt by someone within the past year? 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 [employer] Meds Allergies Allergy/AdvReac Type Severity Reaction Status Date / Time codeine AdvReac Intermediate vertigo, Verified 09/27/25 07:15 nausea Home Medications ?Medication ?Instructions ?Recorded ?Confirmed ?Last Taken ?Type atenolol 50 mg tablet 75 mg PO DAILY 08/08/20 09/23/25 12/30/24 History cholecalciferol (vitamin D3) 25 25 mcg PO DAILY 08/08/20 09/23/25 Unknown History mcg (1,000 unit) capsule (Vitamin D3) hydrochlorothiazide 25 mg tablet 25 mg PO DAILY 08/08/20 09/23/25 03/31/23 History lisinopril 20 mg tablet 20 mg PO DAILY 08/08/20 09/23/25 03/31/23 History dapagliflozin propanediol 5 mg 5 mg PO DAILY 03/21/22 09/23/25 09/22/25 History tablet (Farxiga) glipizide 10 mg tablet, extended 20 mg PO DAILY 08/21/22 09/23/25 03/31/23 History release 24 hr lancets 28 gauge (FreeStyle #100 ea 08/21/22 06/06/25 Unknown History Lancets) clotrimazole 1 % topical cream appl topical BID 08/23/25 Unknown History tirzepatide 5 mg/0.5 mL 5 mg subcut QWEEK 08/23/25 09/23/25 09/14/25 History subcutaneous pen injector (Jalil) atogepant 60 mg tablet (Qulipta) 60 mg PO DAILY PRN Headache 09/23/25 09/23/25 Unknown History galcanezumab-gnlm 120 mg/mL 120 mg subcut QMONTH 09/23/25 09/23/25 Unknown History subcutaneous pen injector (Emgality Pen) metoclopramide HCl 5 mg tablet PO 09/27/25 09/27/25 Unknown History Exam Narrative Narrative: EKG 12/2024 Sinus rhythm with one PAC, nonspecific T wave abn, rate 70, Qtc 414ms ECHO 01/2025 Conclusions: - The left ventricular systolic function is normal. The calculated ejection fraction is 55% by biplane method. - No obvious valvular pathology seen on this study. Assessment and Plan Assessment Anesthesia Assessment: Chart Reviewed Final Anesthetic Review Family History of Problems with Anesthesia: No History of Problems with Anesthesia: No Documented by User: Marcin Rene MD 09/27/25 08:20 [facility] Past Medical History Medical History Hand pain, right Nausea and vomiting Bleeding hemorrhoids Epigastric pain Chronic migraine without aura Carpal tunnel syndrome of left wrist Pain of left thumb Numbness and tingling in left hand Carpal tunnel syndrome of right wrist Right arm numbness Arthritis of right shoulder region GERD (gastroesophageal reflux disease) Spondylosis of lumbar spine Diabetes High cholesterol HTN (hypertension) Back pain, chronic Functional capacity: independent ambulation Family History Family History Father History of heart attack Mother Hx of type 1 diabetes mellitus Family history of high blood pressure Surgical History Surgical History S/P carpal tunnel release History of fusion of cervical spine History of carpal tunnel release History of hemorrhoidectomy (04/01/23) History of esophagogastroduodenoscopy (EGD) (12/30/24) Hx of fusion of cervical spine Hx of colonoscopy Hx of cholecystectomy Hx of tubal ligation Social History Social History Alcohol intake: never Patient Tobacco Use Status: Current everyday Tobacco user Tobacco use type: Cigarette Cigarette Packs Per Day: 0.5 Cigarettes Per Day: 10 Years Smoked: 45 Smoked in Last 30 Days: Yes Use of substances other than those prescribed or required for medical reasons: No Have you been hit, kicked, punched, or otherwise hurt by someone within the past year? 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 [employer] Meds Allergies Allergy/AdvReac Type Severity Reaction Status Date / Time codeine AdvReac Intermediate vertigo, Verified 09/27/25 07:15 nausea Home Medications ?Medication ?Instructions ?Recorded ?Confirmed ?Last Taken ?Type atenolol 50 mg tablet 75 mg PO DAILY 08/08/20 09/23/25 12/30/24 History cholecalciferol (vitamin D3) 25 25 mcg PO DAILY 08/08/20 09/23/25 Unknown History mcg (1,000 unit) capsule (Vitamin D3) hydrochlorothiazide 25 mg tablet 25 mg PO DAILY 08/08/20 09/23/25 03/31/23 History lisinopril 20 mg tablet 20 mg PO DAILY 08/08/20 09/23/25 03/31/23 History dapagliflozin propanediol 5 mg 5 mg PO DAILY 03/21/22 09/23/25 09/22/25 History tablet (Farxiga) glipizide 10 mg tablet, extended 20 mg PO DAILY 08/21/22 09/23/25 03/31/23 History release 24 hr lancets 28 gauge (FreeStyle #100 ea 08/21/22 06/06/25 Unknown History Lancets) clotrimazole 1 % topical cream appl topical BID 08/23/25 Unknown History tirzepatide 5 mg/0.5 mL 5 mg subcut QWEEK 08/23/25 09/23/25 09/14/25 History subcutaneous pen injector (Jalil) atogepant 60 mg tablet (Qulipta) 60 mg PO DAILY PRN Headache 09/23/25 09/23/25 Unknown History galcanezumab-gnlm 120 mg/mL 120 mg subcut QMONTH 09/23/25 09/23/25 Unknown History subcutaneous pen injector (Emgality Pen) metoclopramide HCl 5 mg tablet PO 09/27/25 09/27/25 Unknown History Exam Exam Date and Time: 09/27/25 Airway TM Dist: >3cm Neck ROM: Full Heart: rrr Lungs: cta Assessment and Plan Assessment Anesthesia Assessment: Anesthesia Plan Discussed Final Anesthetic Review NPO: Yes Final Preanesthetic Review: No Changes in Pt Med Stat, Meds/Allgs Chart Reviewed, Consent Obtained/Reviewed and Anes Risks/Benef Reviewed Patient Risk: Low Procedure Risk: Low Anesthetic Plan Anesthetic Plan: MAC: Disposition: Standard PACU
[2025-09-23 13:09] VITALS: BMI 28.0
[2025-09-27 07:23] VITALS: BP 137/66; PULSE 66; RESP 15; TEMP 36.5; O2SAT 96
[2025-09-27] MEDS: Lactated Ringers 1,000 ML 100 ML IVCONT (07:30)
[2025-09-27 07:40] LABS: Glucose, Whole Blood 197 mg/dL (60-115)
--- NOTE | 2025-09-27 07:44 | MHC.SHP ---
Pre-Procedural Eval Section A - 24 Hr Update-Section A only Date of Service: 09/27/25 Section B - Complete if H&P > 30 days Chief Complaint: Dysphagia, unspecified Details of Present Illness: celiac disease Back pain, chronic Diabetes GERD (gastroesophageal reflux disease) High cholesterol HTN (hypertension) Migraines Spondylosis of lumbar spine Surgical History Hx of cholecystectomy Hx of colonoscopy Hx of fusion of cervical spine Hx of rectal sphincterotomy Hx of tubal ligation Present Medications: see Short Stay Collaborative assessment Allergies: Allergies Allergy/AdvReac Type Severity Reaction Status Date / Time codeine AdvReac Intermediate vertigo, Verified 09/27/25 07:15 nausea Review of Systems Review of Systems Comment: 10 point ROS negative Exam Exam Comment: Gen appear: No acute distress HEENT: no icterus Chest: No overt resp distress Abd: soft, nontender, nondistended Psych: Stable affect, answering questions appropriately Neuro: A/Ox3 noted to move all extremities spontaneously Ext: no peripheral edema Plan Diagnosis/Plan: Unchanged I have reviewed the history and physical and performed a pertinent physical examination on my patient. No changes have occurred unless specified. Time Spent With Patient Time: Total time managing care of this patient today ____ minutes.
[2025-09-27 09:10] VITALS: BP 103/52; PULSE 73; RESP 20; TEMP 36.1; O2SAT 98
[2025-09-27 09:20] VITALS: BP 108/54; PULSE 76; RESP 13; TEMP 36.6; O2SAT 96
--- NOTE | 2025-09-27 09:21 | P.OP_ITS ---
Operative Note Operative Note Date of Service: 09/27/25 Narrative: Procedure: Esophagogastroduodenoscopy Endoscopist: Johanna Kuo MD Indication: Dysphagia, celiac disease Anesthesia Provider: Dr Rene Anesthesia Type: MAC ?? EGD Procedure:?? The procedure, indications, preparation and potential complications were reviewed with the patient, who indicated understanding and gave written informed consent to proceed. A physical exam was performed. The endoscope was introduced through the mouth, and advanced to the second part of duodenum. The mucosa was carefully examined on slow withdrawal of the endoscope. The patient tolerated the procedure well. There were no immediate complications.? ? EGD Findings:? * Esophagus:? Normal mucosa noted in the entire esophagus. The Z line was at 39 cm. * Stomach:? Erythema and heme noted in antrum. A small polyp was noted just below GE junction visible in anterograde view. Cold forceps polypectomy was performed. Retroflexion was performed in the cardia. Random cold forceps gastric biopsies were taken to rule out H Pylori infection. * Duodenum:? Normal mucosa was noted in the whole of the examined duodenum. Cold forceps biopsies were taken from duodenal bulb and second portion of the duodenum to rule out celiac sprue. Additional intervention: Soft tip Savary wire was introduced through the biopsy channel of the gastroscope and advanced to the antrum. ?The gastroscope was then backed out. ?Savary Zaida bougie was advanced over the guidewire and the esophagus was dilated to 19 with resistance felt. ?On relook, no heme or tear was noted. ? ? EGD Impressions:? * Normal esophagus (biopsy, dilation) * Gastritis * Cardia polyp (biopsy) * Normal duodenum (biopsy) ?? Recommendations:?? * Follow biopsy results. Our office will call or send a letter with results within 7-10 days. * Avoid NSAIDs. * Start omeprazole 20 mg once daily x 8-12 weeks. * If there is improvement in dysphagia, EGD with dilation can be repeated as needed for recurrence of symptoms. Above has been reviewed with the patient.
[2025-09-27 09:34] VITALS: BP 114/62; PULSE 70; RESP 16; TEMP 36.6; O2SAT 97
== END 2025-09-27 10:26 | disposition home or self-care (01) ==
PROVIDERS: PCP General Practice; Visit Provider Internal Medicine
PROC: (CPT 43239; principal; 2025-09-27 08:30)
DX: R13.10 Dysphagia, unspecified (principal); K90.0 Celiac disease; K31.7 Polyp of stomach and duodenum; K29.70 Gastritis, unspecified, without bleeding
CPT/HCPCS: 43239; 43248; 82947; 88305; 88313; 88342; C1769; J2003; J2704; J3010

== ENCOUNTER → 2025-09-27 06:50 | Outpatient (BNV) | payer OTHER, SELFPAY | PROVIDERS: PCP General Practice; Visit Provider Internal Medicine | DX: K31.7 Polyp of stomach and duodenum (principal); R13.10 Dysphagia, unspecified | CPT/HCPCS: 43249; 43250 ==

== ENCOUNTER 2025-10-05 09:20 | Outpatient (AMB) | payer OTHER, SELFPAY ==
--- NOTE | 2025-10-05 09:28 | MHC.OFFVIS ---
Vital Signs 10/05/25 09:36 Height 5 ft 1 in Weight 148 lb BMI 28.0 BP 132/67 Blood Pressure Location Lt brachial Position Sitting Pulse 70 Intake Visit Reasons: s/p EGD w dilation Intake Note: Patient in office today in follow up s/p EGD with dilation. CC: Patient c/o a lot of gas and upset stomach since after procedure. Analysis Analyst Required: No Accompanied by: Self / Same As Patient Allergies codeine Adverse Reaction (Intermediate, Verified 10/05/25 09:37) vertigo, nausea Medication List - Last Reconciled 10/05/25 by LEA Aguilera atenolol 75 mg PO DAILY atogepant (Qulipta) 60 mg PO DAILY PRN atorvastatin 40 mg PO BEDTIME cholecalciferol (vitamin D3) (Vitamin D3) 25 mcg PO DAILY clonazepam 0.5 mg PO BEDTIME 30 days clotrimazole 1% appl topical BID dapagliflozin propanediol (Farxiga) 5 mg PO DAILY galcanezumab-gnlm (Emgality Pen) 120 mg subcut QMONTH glipizide ER 20 mg PO DAILY hydrochlorothiazide 25 mg PO DAILY lancets (FreeStyle Lancets) As directed lisinopril 20 mg PO DAILY metoclopramide HCl 10 mg PO DAILY PRN omeprazole 20 mg PO DAILY rizatriptan 5 - 10 mg (0.5 - 1 x 10 mg) PO Q2H PRN 30 days simethicone (Gas Relief (simethicone)) 125 mg PO TID tirzepatide (Mounjaro) 5 mg subcut QWEEK HPI HPI s/p EGD w dilation: Details: Assessment & Plan (1) Dysphagia: Code(s): R13.10 - Dysphagia, unspecified Category: Medical (2) Celiac disease: Code(s): K90.0 - Celiac disease Category: Medical Plan This is a patient who has celiac disease with historically poor compliance with the avoidance diet. When she is off her diet she has trouble with nausea vomiting GERD and constipation. When she is following the diet she does well. In the past she has utilize famotidine and Linzess, but since she has been on the diet she has not needed these medications. Her biggest complaint now is with persistent daily headaches. She has tried many many migraine prophylactic treatments without success. Apparently they are considering doing a prednisone challenge, and she wants to know if this is okay from a GI perspective which it is. She has ongoing dysphagia which seems to be a tightness in her upper throat that had some response with dilation in the past. She asks me why this happens, and I tell her it could be anything from genetic to even related to her severe anxiety and spasms of the esophagus. With this she tells me that she feels muscle spasm is a great deal of her problem contributing to her headaches. She is also endorsing pretty significant anxiety along with depression, tearfulness, a lack of desire to leave her home, and insomnia. Because she seems to be in significant distress I offer her a trial of Prozac (she has tried agents such as TCAs, Topamax etc. for her migraines without any help for her mood) but she says she will be hearing back from pain management today and she wants to see what they are going to do 1st. This of course is acceptable. Another alternative for her could be mirtazapine. She has her EGD upcoming on September 27 and I will see her after this procedure. EGD 09/27/2025 EGD Findings:? Esophagus:? Normal mucosa noted in the entire esophagus. The Z line was at 39 cm. Stomach:? Erythema and heme noted in antrum. A small polyp was noted just below GE junction visible in anterograde view. Cold forceps polypectomy was performed. Retroflexion was performed in the cardia. Random cold forceps gastric biopsies were taken to rule out H Pylori infection. Duodenum:? Normal mucosa was noted in the whole of the examined duodenum. Cold forceps biopsies were taken from duodenal bulb and second portion of the duodenum to rule out celiac sprue. Additional intervention: Soft tip Savary wire was introduced through the biopsy channel of the gastroscope and advanced to the antrum. ?The gastroscope was then backed out. ?Savary Zaida bougie was advanced over the guidewire and the esophagus was dilated to 19 with resistance felt. ?On relook, no heme or tear was noted. ? ? EGD Impressions:? Normal esophagus (biopsy, dilation) Gastritis Cardia polyp (biopsy) Normal duodenum (biopsy)?? Recommendations:?? Follow biopsy results. Our office will call or send a letter with results within 7-10 days. Avoid NSAIDs. Start omeprazole 20 mg once daily x 8-12 weeks. If there is improvement in dysphagia, EGD with dilation can be repeated as needed for recurrence of symptoms. BIOPSY Received: 09/27/25 Diagnosis A. Duodenum, biopsy: Duodenal mucosa with preserved villi and focal mild changes suggesting chronic duodenitis; no features of celiac disease at this time. B. Stomach, random, biopsy: Gastric antral and body mucosa with minimal chronic inactive gastritis; negative for H. pylori, intestinal metaplasia and dysplasia. C. Stomach, cardia polyp, biopsy: Polypoid squamocolumnar mucosa consistent with inflammatory polyp; negative for H. pylori, intestinal metaplasia and dysplasia [facility] Medical History Sleep apnea Hand pain, right Nausea and vomiting Bleeding hemorrhoids Epigastric pain Chronic migraine without aura Carpal tunnel syndrome of left wrist Pain of left thumb Numbness and tingling in left hand Carpal tunnel syndrome of right wrist Right arm numbness Arthritis of right shoulder region GERD (gastroesophageal reflux disease) Spondylosis of lumbar spine Diabetes High cholesterol HTN (hypertension) Back pain, chronic Surgical History S/P carpal tunnel release History of fusion of cervical spine History of carpal tunnel release History of hemorrhoidectomy (04/01/23) History of esophagogastroduodenoscopy (EGD) (12/30/24) Hx of fusion of cervical spine Hx of colonoscopy Hx of cholecystectomy Hx of tubal ligation Family History Father History of heart attack Mother Hx of type 1 diabetes mellitus Family history of high blood pressure Social History Are you a primary anesthesiologist and critical care to a significant other at home: No Do you presently have visiting nurse or other home services: Yes (HOME DECORATOR 3 x week) Alcohol intake: never Patient Tobacco Use Status: Current everyday Tobacco user Tobacco use type: Cigarette Cigarette Packs Per Day: 0.5 Cigarettes Per Day: 10 Years Smoked: 45 Advance Directives Date on File: 10/24/08 Current occupational status: employed 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 Review of Systems Const Denies fatigue, Denies fever(s), Denies night sweats, Denies poor appetite and Denies weight loss ENT Reports Normal hearing present, Denies dental pain, Reports dysphagia, Denies hearing loss, Denies mouth pain, Denies odynophagia, Denies throat swelling, Denies tongue swelling and Reports other (Dentition adequate) Card Reports no additional complaints Resp Reports no additional complaints GI Details: Denies abdominal pain, Denies melena, Denies bloating, Denies hematochezia, Denies constipation, Denies GI cramping, Reports dysphagia, Denies excessive flatus, Denies early satiety, Reports dyspepsia, Denies heartburn, Denies diarrhea, Denies nausea, Denies odynophagia, Denies vomiting and Denies hematemesis Skin/Breast Denies pruritus, Denies lesions, Denies rash and Denies jaundice Neuro Reports Normal hearing present and Denies Abnormal speech present Endo Denies fatigue Aller/Immun Denies throat swelling and Denies tongue swelling Physical Exam Vital Signs: Last Vital Signs Pulse 70 10/05/25 09:36 BP 132/67 10/05/25 09:36 BMI result Body Mass Index 28.0 Const General: cooperative, no acute distress, well developed and well groomed Nutritional Appearance: well nourished and overweight Orientation/consciousness: oriented to person, oriented to place and oriented to time Limitations: No language barrier HEENT Head: Yes normocephalic and Yes atraumatic Eyes General: appearance normal, both eyes and all related structures Pupils: Equal, round and reactive pupils present Neck Neck: Yes normal visual inspection and Yes no lymphadenopathy Thyroid: Thyroid normal Resp Effort & Inspection: normal respiratory effort and able to speak in complete sentences Auscultation: clear to auscultation bilaterally Cardio Rate: regular rate Rhythm: regular rhythm Heart sounds: Normal, physiologic split S2 sound present Peripheral pulses: radial pulses present and posterior tibial pulses present GI Inspection: No distended, No Abdominal panniculus present and Yes obesity Palpation (GI): Soft to palpation, nontender, no guarding, not rigid and No hepatosplenomegaly present Percussion: Yes normal to percussion Auscultation: normal bowel sounds Rectal Exam - Female: deferred Skin General skin exam: no rashes or lesions noted, turgor normal, skin not dry, no jaundice, No spider nevi and no striae Rashes: no rashes Nails: normal Neuro General: oriented to person, oriented to place and oriented to time Cranial nerves: Yes Equal, round and reactive pupils present and Yes Normal hearing present Speech: No Abnormal speech present Extrem General: Yes normal to inspection, No clubbing, No cyanosis and No edema Psych Appearance: grossly normal and well kempt Mental Status: mental status grossly normal Speech and movement: Normal speech and movement present Affect: normal affect Attitude: cooperative Thought process: Normal thought process present and not confabulating Thought content: Normal thought content present Insight: Good insight present (Psych) Judgement: Good judgement present (Psych) Assessment & Plan Assessment & Plan (1) GERD (gastroesophageal reflux disease): Comment: Resolved with celiac diet Code(s): K21.9 - Gastro-esophageal reflux disease without esophagitis Category: Medical (2) Dysphagia: Code(s): R13.10 - Dysphagia, unspecified Category: Medical (3) Celiac disease: Code(s): K90.0 - Celiac disease Category: Medical Plan Her current GI regimen as omeprazole 20 mg a day and simethicone. Subjective Patient seen in follow-up after recent upper endoscopy performed for dysphagia. Reports swallowing is somewhat improved since the procedure but not completely; describes persistent sensation of something ?right there.? Notes ongoing hoarseness of voice. Since the procedure, reports increased gassiness despite omeprazole once daily. Was previously on famotidine; currently taking omeprazole 20 mg daily. Reports reduced appetite since switching to Mounjaro, eating primarily to maintain blood sugar. Experiences nausea associated with migraines and uses metoclopramide as needed, occasionally taking two tablets when nausea is worse. Patient is working to avoid gluten and asks about celiac findings; reassured during visit that endoscopic evaluation looked okay. Relevant Past Medical, Social, and Family History - History of chronic gastric irritation requiring acid-reducing therapy; prior dysphagia requiring dilation. Diabetes treated with Mounjaro. Migraines with associated nausea. Avoids gluten by preference. Objective - Endoscopy: Mild gastric erythema consistent with chronic irritation; inflammatory gastric polyp observed with benign appearance. Esophagus dilated at the lower esophagus to aid swallowing. Biopsies obtained. Overall, minimal active findings. - Voice hoarseness noted. Assessment & Plan Dysphagia, status post lower esophageal dilation: Partial symptomatic improvement reported following dilation; localization of persistent sensation remains. Too early to fully assess response. - Monitor symptoms over the next several weeks. - Follow up in 3 months to reassess swallowing; earlier if worsening. Chronic gastric irritation/acid-related disorder: Endoscopy with mild gastric erythema and inflammatory polyp of benign appearance; overall findings consistent with chronic irritation. Current low-dose PPI appears effective clinically. - Continue omeprazole 20 mg once daily; refills provided. - May uptitrate dose if symptoms recur or worsen. - Counseling provided that long-term acid suppression is likely necessary. Post-procedural gas/bloating: Likely related to insufflation from endoscopy; omeprazole will not address gas symptoms. - Start simethicone (Gas-X) as needed for gas relief; prescription attempted though OTC availability noted and insurance coverage may vary. - Reassurance provided; expect gradual improvement. Appetite suppression associated with Mounjaro: Decreased appetite temporally associated with initiation of Mounjaro; consistent with expected effect. - Acknowledged as medication effect; continue current diabetes regimen per prescriber overseeing glycemic management. Nausea associated with migraines: Uses metoclopramide as needed with relief; indication clarified in chart. - Continue metoclopramide as needed for migraine-associated nausea per current use pattern. Gluten avoidance: Endoscopic evaluation looked okay; patient prefers to avoid gluten and reports support from family. - Continue gluten avoidance as tolerated. Follow-up: 3 months, or sooner for worsening dysphagia, persistent hoarseness, or uncontrolled GI symptoms. Medications: New simethicone (Gas Relief (simethicone)) 125 mg PO TID 90 tabs 6RF abdominal distention Refilled omeprazole 20 mg PO DAILY 90 caps 0RF gastritis Coding Level of Care Code Est Pt Level 3 (66512) Diagnoses GERD (gastroesophageal reflux disease) K21.9 Dysphagia R13.10 Celiac disease K90.0
[2025-10-05 09:36] VITALS: BP 132/67; PULSE 70; BMI 28.0
--- OUTSIDE RECORDS SUMMARY | 2025-10-05 10:36 | XMS_ITS | Encounter Summary ---
Author Organization [employer] Address [address] [facility] 7 [place] [address] Care Team Providers Care B2B Managed Service Sales Exec Name Role Phone Sima Kaur MD Primary Care Provider [phone] Reason for Visit * Reason Comments Med Refill Encounter Details Date Type Department Care Team ([facility] st Contact Info) Description 05/31/2025 Refill [facility] MEDICINE [address] [place], [place] [phone] Sima Kaur MD [address] [place] [address] Social History Tobacco Use Types Packs/Day Years [...] Care Team (Late st Contact Info) Description 10/18/2025 10:15 AM EST Telemedicine [facility] MEDICINE [address] [place] [address] Sima Kaur MD [address] [place] [address] 02/02/2026 1:00 PM EDT Office Visit [facility] OPTOMETRY [address] [place] [address] Ervin, Maria Antonia, OD [address] [place] [address] documented as of this encounter Visit Diagnoses Not on filedocumented in this encounter Additional Health Concerns Assessment Noted Time PHQ-9 Depression Total Score: 14 025 3:41 PM EDT documented as of this encounter Care Teams B2B Managed Service Sales Exec Relationship Specialty Start Date End Date Sima Kaur MD [address] [place] [address] PCP - General Family Medicine 11/28/20 documented as of this encounter
--- OUTSIDE RECORDS SUMMARY | 2025-10-05 10:36 | XMS_ITS | Encounter Summary ---
Author Organization [employer] Address [address] [facility] [address] [place] [address] Care Team Providers Care Deputy Commissioner Name Role Phone Sima Kaur MD Primary Care Provider [phone] Encounter Details Date Type Department Care Team (Late st Contact Info) Description 03/07/2025 Orders Only [facility] MEDICINE [address] [place], [place] [phone] Sima Kaur MD [address] [place], [place] [phone] Social History Tobacco Use Types Packs/Day Years [...] Info) Description 10/18/2025 10:15 AM EST Telemedicine [facility] MEDICINE [address] [place] [address] Sima Kaur MD [address] [place] [address] 02/02/2026 1:00 PM EDT Office Visit [facility] OPTOMETRY [address] [place] [address] Ervin, Maria Antonia, OD [address] [place] [address] documented as of this encounter Procedures Procedure [...] documented as of this encounter Care Teams Deputy Commissioner Relationship Specialty Start Date End Date Sima Kaur MD [address] [place] [address] PCP - General Family Medicine 11/28/20 documented as of this encounter
--- OUTSIDE RECORDS SUMMARY | 2025-10-05 10:36 | XMS_ITS | Encounter Summary ---
Author Organization [employer] Address [address] [place] [address] [address] [address] Care Team Providers Care Traveling Crane Operator Name Role Phone Sima Kaur MD Primary Care Provider Encounter Details Date Type Department Care Team (Late Contact Info) Description 01/10/2023 Abstract [facility] MEDICINE [address] [place] [address] [phone] Sima Kaur MD [address] [place] [phone] Social History Tobacco Use Types Packs/Day Years [...] Department Care Team (Late Contact Info) Description 10/18/2025 10:15 AM EST Telemedicine [facility] MEDICINE [address] [place], [place] [phone] Sima Kaur MD [address] [place] [address] [phone] 02/02/2026 1:00 PM EDT Office Visit [facility] OPTOMETRY [address] [place] [address] [phone] Maria Antonia Mueller OD [address] [place] [address] documented as of this encounter Procedures Procedure Name Priority Date/Time Associated Diagnosis Comments MAMMOGRAPHY Routine 05/15/2022 PAP SMEAR Routine 07/11/2020 12:00 AM EDT documented in this encounter Results * Mammography (05/15/2022) Mammogram completed mammo Anatomical Region Laterality Modality Other us Historical Provider HEALTH MAINTENANCE Final Result * Pap Smear (07/11/2020 12:00 AM EDT) Swab Historical Provider LAB CYTOLOGY ORDERABLES F inal Result Performing Organization Address City/State/[facility] Co de Phone Number [address], [place] [address] documented in this encounter Visit Diagnoses Not on filedocumented in this encounter Care Teams Traveling Crane Operator Relationship Specialty Start Date End Date Sima Kaur MD [address] [place] [address] PCP - General Family Medicine 11/28/20 documented as of this encounter
--- OUTSIDE RECORDS SUMMARY | 2025-10-05 10:36 | XMS_ITS | Encounter Summary ---
Author Organization [employer] Address [address] [facility] 7 [place] [address] Care Team Providers Care Supervisor In Circuit Testing Name Role Phone Sima Kaur MD Primary Care Provider [phone] Reason for Visit * Reason Comments Med Refill Encounter Details Date Type Department Care Team ([facility] st Contact Info) Description 10/04/2025 Refill [facility] MEDICINE [address] [place], [place] [phone] Sima Kaur MD [address] [place] [address] Social History Tobacco Use Types Packs/Day Years [...] 10/18/2025 10:15 AM EST Telemedicine [facility] MEDICINE [address] [place] [address] Sima Kaur MD [address] [place] [address] 02/02/2026 1:00 PM EDT Office Visit [facility] OPTOMETRY [address] [place] [address] Ervin, Maria Antonia, OD [address] [place] [address] documented as of this encounter Goals Goal Patient Goal Type Associated Problems Recent Progress Patient-Stated? Author Help patients manage their type 2 diabetes Care Plan Help patients manage their type 2 diabetes Linda Cintron Weekly blood pressure task Care Plan Weekly blood pressure task No Linda Casiano Help patients manage their type 2 diabetes Care Plan Help patients manage their type 2 diabetes No Linda Casiano Patient has chronic kidney disease Care Plan Patient has chronic kidney disease No Linda Casiano Weekly blood pressure task Care Plan Weekly blood pressure task No Linda Casiano Patient has chronic kidney disease Care Plan Patient has chronic kidney disease No Linda Casiano Weekly blood pressure task Care Plan Weekly blood pressure task No Sima Kaur MD Weekly blood pressure task Care Plan Weekly blood pressure task No Sima Kaur MD Patient has chronic kidney disease Care Plan Patient has chronic kidney disease No Sima Kaur MD Patient has chronic kidney disease Care Plan Patient has chronic kidney disease No Sima Kaur MD Weekly blood pressure task Care Plan Weekly blood pressure task No Candace Moody MA Weekly blood pressure task Care Plan Weekly blood pressure task No Candace Moody [place] Patient has chronic kidney disease Care Plan Patient has chronic kidney disease No Candace Moody [place] Patient has chronic kidney disease Care Plan Patient has chronic kidney disease No Candace Moody MA Weekly blood pressure task Care Plan Weekly blood pressure task No Waqar Mendiola Weekly blood pressure task Care Plan Weekly blood pressure task No Waqar Mendiola Patient has chronic kidney disease Care Plan Patient has chronic kidney disease No Waqar Mendiola Patient has chronic kidney disease Care Plan Patient has chronic kidney disease No Waqar Mendiola documented as of this encounter Visit Diagnoses Not on filedocumented in this encounter Additional Health Concerns Active Problems Noted Date Diagnosed Date Help patients manage their type 2 diabetes 09/06 Weekly blood pressure task 09/06/2025 Help patients manage their type 2 diabetes 09/06 Patient has chronic kidney disease 09/06/2025 Weekly blood pressure task 09/06/2025 Patient has chronic kidney disease 09/06/2025 Weekly blood pressure task 09/19/2025 Weekly blood pressure task 09/19/2025 Patient has chronic kidney disease 09/19/2025 Patient has chronic kidney disease 09/19/2025 Weekly blood pressure task 09/19/2025 Weekly blood pressure task 09/19/2025 Patient has chronic kidney disease 09/19/2025 Patient has chronic kidney disease 09/19/2025 Weekly blood pressure task 09/22/2025 Weekly blood pressure task 09/22/2025 Patient has chronic kidney disease 09/22/2025 Patient has chronic kidney disease 09/22/2025 Assessment Noted Time PHQ-9 Depression Total Score: 14 025 3:52 PM EDT documented as of this encounter Care Teams Supervisor In Circuit Testing Relationship Specialty Start Date End Date Sima Kaur MD [address] [place] [phone] PCP - General Family Medicine 11/28/20 documented as of this encounter
--- OUTSIDE RECORDS SUMMARY | 2025-10-05 10:37 | XMS_ITS | Encounter Summary ---
Author Organization [employer] Address [address] [place] [address] [address] [address] Care Team Providers Care Language Asst Name Role Phone Sima Kaur MD Primary Care Provider Reason for Referral * Consultation (Routine) - Closed Specialty Diagnoses / Procedures Referred By Contac t Referred To Contact Neurosurgery Diagnoses Cervical spine pain Cervical radiculopathy due to degenerative joint disease of spine Sima Kaur MD [address] [place] [phone] Phone: tel: fax: Sheridan Valentine MD [address] [place] [address], [address] [place] [address] Phone: tel: fax: Referral ID Status Reason Start Date Expiration Date V isits Requested Visits Authorized [id number] Closed Specialty Services Required 05/28/2024 05/28/2025 1 0 Encounter Details Date Type Department Care Team (Late st Contact Info) Description 05/28/2024 Orders Only [facility] MEDICINE [address] [place], [place] [phone] Sima Kaur MD [address] [place], [place] [phone] Cervical spine pain (Primary Dx); Cervical radiculopathy [...] Info) Description 10/18/2025 10:15 AM EST Telemedicine [facility] MEDICINE [address] [place] [address] Sima Kaur MD [address] [place] [address] 02/02/2026 1:00 PM EDT Office Visit [facility] OPTOMETRY [address] [place] [address] Maria Antonia Mueller, OD [address] [place] [address] Scheduled Referrals Name Type Priority Associated Diagnoses [...] documented as of this encounter Care Teams Language Asst Relationship Specialty Start Date End Date Sima Kaur MD [address] [place] [address] PCP - General Family Medicine 11/28/20 documented as of this encounter
--- OUTSIDE RECORDS SUMMARY | 2025-10-05 10:37 | XMS_ITS | Clinical Summary ---
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 022 Active dapagliflozin (Farxiga) 5 MG Take 1 tablet by mouth in the morning. 022 Active Emgality 120 MG/ML auto-injector 022 Active Qulipta 60 MG tablet Take 1 tablet by mouth in the morning. 023 Active lisinopril 20 MG tablet Take 20 mg by mouth. 023 Active omeprazole (PriLOSEC) [address] capsule TAKE 1 CAPSULE BY MOUTH ONCE DAILY FOR 30 DAYS 023 Active rizatriptan (Maxalt) 10 MG tablet TAKE 1/2 TO 1 (ONE-HALF TO ONE) TABLET BY MOUTH EVERY 2 HOURS NEEDED FOR MIGRAINE HEADACHE FOR 21 DAYS. MAX 2 TABLETS PER DAY OR 4 TABLET PER WEEK 023 Active FreeStyle lancets 1 each by Other route 2 times daily. USE TO TEST BLOOD SUGAR TWICE DAILY 100 each 11 024 Active Linzess 145 MCG capsule TAKE 1 CAPSULE BY MOUTH IN THE MORNING. TAKE FIRST THING IN THE MORNING WITH A FULL GLASS OF WATER 024 Active nicotine (Nicoderm, Step 2) 14 MG/24HR patch Place 1 patch on the skin 1 (one) time each day at the same time. 30 patch 11 024 Active Alcohol Swabs (B-D SINGLE USE SWABS REGULAR) padsIndications :Type 2 diabetes mellitus without complication, without long-term current use of insulin (HCC) USE 1 SWAB EXTERNALLY TWICE DAILY 100 each 11 025 Active FREESTYLE LITE test stripIndication s:Type 2 diabetes mellitus without complication, without long-term current use of insulin (HCC) USE 1 STRIP TO CHECK GLUCOSE TWICE DAILY DIRECTED 150 each 3 025 Active hydroCHLOROthia zide (HYDRODiuril) 25 MG tabletIndicatio ns:Essential hypertension TAKE 1 TABLET BY MOUTH IN THE MORNING 90 tablet 3 025 Active glipiZIDE XL (Glucotrol XL) 10 MG 24 hr tablet TAKE 2 TABLETS BY MOUTH ONCE DAILY WITH BREAKFAST 180 tablet 3 025 Active atenolol (Tenormin) 50 MG tabletIndicatio ns:Primary hypertension TAKE 1 & 1/2 (ONE & ONE-HALF) TABLETS BY MOUTH ONCE DAILY 135 tablet 3 025 Active Blood Glucose Monitoring Suppl (FreeStyle Lite) device Inject 1 each under the skin 2 times daily. USE DIRECTED TO CHECK BLOOD GLUCOSE TWICE DAILY (E11.9) 1 each 025 Active cholecalciferol (D3) 25 MCG (1000 UT) capsule TAKE 1 CAPSULE BY MOUTH EVERY DAY 90 capsule 1 025 Active gabapentin (Neurontin) 100 MG capsule TAKE 1 TO 3 CAPSULES BY MOUTH AT BEDTIME 025 Active Blood Glucose Monitoring Suppl (FreeStyle Lite) w/Device kit USE TO CHECK BLOOD SUGAR DIRECTED TWICE DAILY 025 Active Tirzepatide (Mounjaro) 5 MG/0.5ML solution auto-injector Inject 5 mg under the skin 1 (one) time per week. 2 mL 3 025 Active naproxen (Naprosyn) 500 MG tablet Take 1 tablet (500 mg) by mouth 1 (one) time if needed for mild pain (with Reglan and Benadryl for migraine cocktail) for up to 60 doses. 60 tablet Active clotrimazole (Lotrimin) 1 % cream Apply topically 2 times daily. 60 g 2 Active diazePAM (Valium) 5 MG tabletIndicatio ns:Neck pain,Muscle spasm Take 1 tablet (5 mg) by mouth at bedtime. 30 tablet 1 025 2025 Active predniSONE (Deltasone) 50 MG tablet Take 1 tablet by mouth Once per day. Active famotidine (Pepcid) 20 MG tablet TAKE 1 TABLET BY MOUTH TWICE DAILY FOR 2 WEEKS. Active metoclopramide (Reglan) 5 MG tablet TAKE 1 TABLET BY MOUTH ONCE IF NEEDED (WITH NAPROXEN AND BENADRYL FOR MIGRAINE COCKTAIL) 30 tablet Active acetaminophen (Tylenol 8 Hour) 650 MG ER tablet Take 1 tablet by mouth every 8 (eight) hours. 021 2024 Discontinued(T herapy completed) clonazePAM (KlonoPIN) 0.5 MG tablet TAKE 3 TABLETS BY MOUTH AT BEDTIME 2024 Discontinued(I neffective) Docusate Sodium (DSS) 100 MG capsuleIndicati ons:Other constipation Take one capsule in the morning and one in the evening for constipation 180 capsule 3 022 2024 Discontinued(T herapy completed) chlorhexidine (Peridex) 0.12 % solution SWISH 15 ML IN MOUTH AND SPIT OUT TWICE DAILY FOR 10 DAYS 024 2024 Discontinued(T herapy completed) famotidine (Pepcid) 40 MG tablet Take 40 mg by mouth at bedtime. 024 2024 Discontinued(T herapy completed) clobetasol (Temovate) 0.05 % ointmentIndicat ions:Dermatitis Apply topically 2 times daily. 15 g 1 025 2024 Discontinued(T herapy completed) cyclobenzaprine (Flexeril) 10 MG tabletIndicatio ns:Neck pain Take 1 tablet (10 mg) by mouth if needed in the morning and at bedtime for muscle spasms. 60 tablet 2 025 2024 Discontinued(T herapy completed) metoclopramide (Reglan) 5 MG tablet TAKE 1 TABLET BY MOUTH ONCE IF NEEDED (WITH NAPROXEN AND BENADRYL FOR MIGRAINE COCKTAIL) 30 tablet 025 2024 Discontinued Active Problems Problem Noted Date Diagnosed Date Primary insomnia 08/18/2024 Neck pain 05/26/2024 Assessment & Plan (09/21/2025 12:09 PM EST): Trial Valium 5mg nightly, in lieu on Klonopin 0.5mg to treat neck muscle tightness and sleep Followup in 30days via phone Assessment & Plan (01/20/2025 2:23 PM EDT): [...] trigger injections. 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 At risk for osteoporosis 05/11/2023 Acute stress reaction 03/04/2023 Assessment & Plan [...] BP daily Migraine 06/20/2022 Assessment & Plan (09/21/2025 12:08 PM EST): Pt having dizziness in the morning with chronic migraines, hodan benefit from bed rail for stability and falls deterrent Assessment & Plan (06/12/2023 8:49 PM EDT): Much improved with Emgality Continue followup at [facility] neurology Encouraged wear of CPAP for help with SANTIAGO and BP Assessment & Plan (10/15/2022 11:53 AM EST): Much improved with Emgality Continue followup at [facility] neurology Encouraged wear of CPAP for help with SANTIAGO and BP 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 05/24/2021 Assessment & Plan (06/12/2023 8:48 PM EDT): cont post acute care nurse followup Assessment & Plan (05/09/2023 10:10 AM EDT): Pt has a follow up with post acute care nurse next month Nicotine dependence 05/24/2021 Assessment & [...] of Trulicity secondary to medication availability -called [facility] pharmacy and confirmed Trulicity 1.5 mg [...] D deficiency 04/05/2016 Chronic back pain 11/27/2015 Mixed hyperlipidemia 11/27/2015 Overweight 11/27/2015 Smoker 11/27/2015 Resolved Problems Problem Noted Date Diagnosed Date Resolved Date Type 2 diabetes mellitus wit hout complication, without long-term current use of insulin 08/18/2024 01/20/2025 Rash 03/08/2024 09/21/2025 Assessment & Plan (03/08/2024 11:08 AM EDT): -noted in external canal of bilateral ears -may be fungal -advised to application clotrimazole cream use a q-tip or tissue Cellulitis of right upper limb 06/09/2023 09/21/2025 Encounter for preventive health examination 05/09/2023 09/21/2025 Assessment & Plan (05/09/2023 9:52 AM EDT): [...] STI testing Dental visit up to date Headache 11/27/2015 09/21/2025 Encounters Date Type Department Care Team Description 10/04/2025 Refill [facility] [place] [address] Sima Kaur MD 09/27/2025 Orders Only GENERIC EXTERNAL DATA DEPARTMENT Provider, Generic External Data 09/22/2025 Telephone [facility] [place] [address] Sima Kaur MD Prior Authorization (PA: Diazepam) 09/21/2025 Travel 09/20/2025 10:30 AM EST Office Visit [facility] [place] [address] Sima Kaur MD Type 2 diabetes mellitus with diabetic nephropathy, without long-term current use of insulin (HCC) (Primary Dx); Neck pain; Muscle spasm; Encounter for immunization; Daytime somnolence; Tobacco abuse counseling; Primary hypertension; Diabetic nephropathy associated with type 2 diabetes mellitus (HCC); Depression, recurrent (CMS/HCC); Chronic migraine without aura without status migrainosus, not intractable; Smoker; Cigarette nicotine dependence without complication 09/20/2025 Travel 09/19/2025 Telephone [facility] MEDICINE [facility] [place] [address] Sima Kaur MD Chart Prep 09/06/2025 Patient Outreach [facility] [place] [address] Sima Kaur MD Pre-visit Planning (SDOH screening completed on 01/10/2025) 09/04/2025 Refill [facility] MEDICINE [facility] [place] [address] Sima Kaur MD 08/02/2025 Refill [facility] MEDICINE [facility] [place] [address] Sima Kaur MD 07/08/2025 4:00 PM EDT Office Visit [facility] [place] [address] Sima Kaur MD Encounter for screening mammogram for malignant neoplasm of breast (Primary Dx); Type 2 diabetes mellitus without complication, without long-term current use of insulin (CMS/HCC); Primary hypertension; Type 2 diabetes mellitus with diabetic nephropathy, without long-term current use of insulin (CMS/[facility]); Depression, recurrent ([facility]); Smoker 07/08/2025 Travel 07/07/2025 Telephone [facility] MEDICINE [address] [place] [address] [phone] Tereza Vela [place] chart prep from Last 3 Months Immunizations Immunization Administration Dates Next Due Hep B, adult 08/18/2018,02/13/2018,04/04/2016 Influenza High-dose Quadriva lent Preservative Free 09/15/2023,07/19/2022 Influenza injectable quadriv alent IIV4 with preservative 08/18/2018 Influenza injectable quadriv alent preservative free 08/03/2021,07/11/2020,07/13/2019,2016 Influenza, High Dose Seasona l, Preservative Free 09/20/2025 Influenza, IIV3, injectable 07/31/2011 Influenza, Split (incl. [...] Sign Reading Time Taken Comments Blood Pressure 122/72 09/20/2025 10:44 AM EST Pulse 84 09/20/2025 10:44 AM EST Temperature 36.8 C (98.3 F) 09/20/2025 10:44 AM EST Respiratory Rate 20 09/20/2025 10:44 AM EST Oxygen Saturation 98% 07/08/2025 3:51 PM EDT Inhaled Oxygen Concentration - - Weight 67 kg (147 lb 12.8 oz) 09/20/2025 10:44 A M EST Height 154.9 cm (5' 1 ) 09/20/2025 10:44 AM EST Body Mass Index 27.93 09/20/2025 10:44 AM EST Plan of Treatment Upcoming Encounters Date Type Department Care Team (Late st Contact Info) Description 10/18/2025 10:15 AM EST Telemedicine [facility] MEDICINE [address] [place] [address] Sima Kaur MD [address] [place] [address] 02/02/2026 1:00 PM EDT Office Visit [facility] OPTOMETRY [address] [place] [address] Ervin, Maria Antonia, OD [address] [place] [address] Health Maintenance Due Date Last Done Comments [...] 08/16/2024, 05/28/2022, 09/26/2021, Additional history exists Diabetes: Hemoglobin A1C 10/07/2025 025, 01/19/2025, 08/16/2024, Additional history exists Depression Monitoring 01/05/2026 07/08/2025, 025 SDOH Screening 01/10/2026 01/10/2025 Alcohol/Substance Use Screening 07/08/2026 07/08/2025 Mammogram 08/19/2026 08/19/2025, 06/20, 03/24/2023, Additional history exists Tobacco Screening 09/20/2026 09/20/2025 Colonoscopy 12/19/2027 12/18/2022 Colorectal Cancer Screening 01/17/2028 Postponed from 01/10/2023 (Other Medical Reasons) Pap Smear 2028 2023, 06/21, 07/11/2020 Hepatitis B Vaccines Completed 08/18/2018, 02/13/2018, 04/04/2016 Zoster Vaccines Completed 10/31/2021, 11/0 02/2021, 08/06/2017 Pneumococcal Vaccine: 50+ Years Completed 05/09/2023, 10/28/2017 HPV/Cotest Discontinued 2023, 07/11/2020 RSV Patients and Patients Aged 60 years or older Completed 11/28/2023 Hepatitis C Screening Completed 05/25/2024 Influenza Vaccine Completed 09/20/2025, , 07/19/2022, Additional history exists HIB Vaccines Aged Out [...] on patient's age to complete this topic Goals Goal Patient Goal Type Associated Problems [...] Care Plan Weekly blood pressure task No aWqar Mendiola Weekly blood pressure task Care Plan Weekly blood pressure task No Waqar Mendiola Patient has chronic kidney disease Care Plan Patient has chronic kidney disease No Waqar Mendiola Patient has chronic kidney disease Care Plan Patient has chronic kidney disease No Waqar Mendiola Procedures Procedure Name Priority Date/Time Associated Diagnosis Comments HEMATOXYLIN AND EOSIN STAIN Routine 09/27/2025 8:54 AM EST GLUCOSE, WHOLE BLOOD Routine 09/27/2025 7:34 AM EST POCT GLUCOSE Routine 09/20/2025 10:45 AM EST Type 2 diabetes mellitus with diabetic nephropathy, without long-term current use of insulin (HCC) BI MAMMOGRAM SCREENING TOMOSYNTHESIS BILATERAL Routine 08/19/2025 11:35 AM EDT Encounter for screening mammogram for malignant neoplasm of breast POCT GLYCATED HEMOGLOBIN, TOTAL Routine 07/08/2025 3:55 PM EDT Type 2 diabetes mellitus without complication, without long-term current use of insulin (CMS/HCC) POCT GLUCOSE Routine 07/08/2025 3:54 PM EDT Type 2 diabetes mellitus without complication, without long-term current use of insulin (CMS/HCC) HEPATITIS C AB W/REFL TO HCV RNA, [...] Maintenance Results * Hematoxylin and Eosin Stain (09/27/2025 8:54 AM EST) 09/27/2025 8:54 AM EST 09/27/2025 9:45 AM EST [facility] LABS - 09/29/2025 4:03 PM EST ----- ------- Name: SukhStephanie Age/Sex: 70/F : 1955 [id number] [id number] Attend Dr: Johanna Kuo MD Re09/27/25 Status: [facility] Location: [facility] Disch: ----- ------- SPEC : [id number] RECD: 09/27/25 STATUS: FAWAD KIRBY NUM: [id number] CAMI: 09/27/[address] [facility] [address]: Johanna Kuo MD ENTERED: 09/27/25 SP TYPE: Surgical OTHR DR: Sima Kaur ORDERED: HE Stain/9, Gross Micro L4/3, T Cell, IHC/3, Special st. 2/2, H. pylori/2, AB/PAS/2 Diagnosis A. Duodenum, biopsy: Duodenal mucosa with preserved villi and focal mild changes suggesting chronic duodenitis; no features of celiac disease at this time. B. Stomach, random, biopsy: Gastric antral and body mucosa with minimal chronic inactive gastritis; negative for H. pylori, intestinal metaplasia and dysplasia. C. Stomach, cardia polyp, biopsy: Polypoid squamocolumnar mucosa consistent with inflammatory polyp; negative for H. pylori, intestinal metaplasia and dysplasia. Clinical History Pre-Op Dx: Dysphagia, celiac Post-Op Dx: Gastritis, cardia polyp Microscopic Description Microscopic sections reviewed. AB/PAS on A shows focal mild chronic injury changes. Immunostains for H. pylori on B and C are negative. AB/PAS on C is negative for intestinal metaplasia. Immunostain for CD3 on A shows no significant increase in intraepithelial lymphocytes. Controls stain appropriately. Material Received A. Duodenum bxs hx Celiac disease B. Random gastric bxs C. Cardia polyp bx Gross Description Received in 3 parts. A. Received in formalin labeled duodenum biopsies HX celiac disease are 5 fragments of pink white soft tissue measuring 0.3-0.5 cm in greatest dimension which are wrapped in lens paper and entirely submitted for microscopic examination, 5 pieces in cassette A. B. Received in formalin labeled random gastric biopsies are 3 fragments of gibson-white soft tissue, each measuring 0.4 cm in greatest dimension, which are wrapped in lens paper and entirely submitted for microscopic examination, 3 pieces in cassette B. C. Received in formalin labeled cardia polyp biopsy is a fragment of pink-gibson soft tissue measuring 0.3 cm in greatest dimension which is wrapped in lens paper and entirely submitted CONTINUED ON NEXT PAGE ----- ------- Name: Stephanie Luz Age/Sex: 70/F : 1955 Unit#: [id number] Attend Dr: Johanna Kuo MD Re09/27/25 Status: [facility] Location: [facility] Disch: ----- ------- SPEC : [id number] RECD: 09/27/25 STATUS: FAWAD KIRBY NUM: [id number] CAMI: 09/27/[address] [facility] [address]: Johanna Kuo MD ENTERED: 09/27/25 SP TYPE: Surgical OTHR DR: Sima Kaur ORDERED: HE Stain/9, Gross Micro L4/3, T Cell, IHC/3, Special st. 2/2, H. pylori/2, AB/PAS/2 Gross Description (Continued) for microscopic examination, 1 piece in cassette C. ([facility]) Special studies ordered and performed: Immunostain for H. pylori on B1 and C1; immunostain for CD3 on A1; AB/PAS stain on A1 and C1. IHC S/NG Disclaimer NOTE: Unless otherwise stated, all tissue is formalin-fixed and paraffin-embedded. Some or all of the immunohistochemical tests reported herein may have been developed and their performance characteristics determined by [facility]. They have not been cleared or approved by the U.S. Food and Drug Administration (FDA). However, the FDA has determined that such clearance or approval is not necessary. This laboratory is certified under the Clinical Laboratory Improvement Amendments of 1988 (CLIA) as qualified to perform high complexity clinical laboratory testing. Copies To: Sima Kaur [address] [id number] Johanna Kuo MD [facility] [address] [place] [phone] [email or web address] ------- Signed (signature on file) Azul Wagner MD 09/29/25 1603 ----- ------- END OF REPORT Generic External Data Provider LAB BLOOD ORDERAB LES Final Result Performing Organization Address City/[facility]/ZIP Co de Phone Number [facility] [address] [place] [phone] * (ABNORMAL) Glucose, Whole Blood (09/27/2025 7:34 AM EST) Glucose, Whole Blood 197(H) 60 - 115 mg/dL [facility] Comment:METER #: [id number] 09/27/2025 7:34 AM EST 09/27/2025 7:40 AM EST Generic External Data Provider LAB BLOOD ORDERAB LES Final Result Performing Organization Address [facility]/ZIP Co de Phone Number [facility] [address] [place] [address] [phone] * (ABNORMAL) POCT Glucose (09/20/2025 10:45 AM EST) Only the most recent of2 resultswithin the time period is included. Glucose Blood, POC 205(A) 60 - 200 mg/dL Blood Capillary blood specimen / Unknown 09/20/2025 10:45 AM EST Sima Kaur MD POINT OF CARE TEST ENTER/EDIT ORDERABLES Final Result * BI Mammogram Screening Tomosynthesis Bilateral (08/19/2025 11:35 AM EDT) Anatomical Region Laterality Modality Breast Bilateral Mammography 08/19/2025 11:3 5 AM EDT Narrative 08/23/2025 10:16 AM EST [facility] [address] [place] [address] Mammography Report Signed Patient: Stephanie Luz MR#: [id number] : 1955 Acct:[id number] Age/Sex: 70 / F ADM Date: 08/19/25 Loc: HO.MAMMO Attending Dr: Sima Kaur MD Ordering Physician: Sima Kaur Results: 1Negative Date of Service: 08/19/25 Follow Up: 1 Year From Orig [facility] Mammogram Procedure(s): MM tomosynthesis screening BI Accession Number(s): [id number] cc: Sima Kaur Reason For Exam: routine screening EXAMINATION: MM SCREENING DIGITAL BREAST TOMOSYNTHESIS, BILATERAL CLINICAL INFORMATION: Screening. Asymptomatic. COMPARISON: Mammography: Comparison is made with available priors TECHNIQUE: Digital breast mammography with tomosynthesis is performed in both the craniocaudal and mediolateral oblique views along with computer-aided detection (CAD). FINDINGS: The breasts are heterogeneously dense, which may obscure small masses. There are no significant masses, abnormal calcifications, or other abnormalities. MM/MM tomosynthesis screening BI IMPRESSION: No mammographic evidence of malignancy. ASSESSMENT: BI-RADS Category 1: Negative RECOMMENDATION: Routine annual mammography screening. 1 year F/U This examination should not preclude the clinical evaluation of a suspicious palpable abnormality. This patient's information was entered into a reminder system with a target due date for their next mammogram. Electronically signed by: Felicia English DO 08/23/2025 10:13 AM EST Dictated By: Tyminski,Felicia DO Signed By: <Electronically signed by Felicia English DO in OV> 08/23/25 1013 DD/ 1135 TD/TT: 08/19/25 113 Mems Integration Engineer: Procedure Note Donotiraidater, Image - 08/23/2025 [facility] [address] [place] [address] Mammography Report Signed Patient: Stephanie LuzMR#: [id number] : 1955cct:[id number] Age/Sex: 70 / FADM Date: 08/19/25 Loc: HO.MAMMO Attending Dr: Sima Kaur MD Ordering Physician: Kleber Kaurults: 1Negative Date of Service: 08/19/25Follow Up: 1 Year From Orig inal Mammogram Procedure(s): MM tomosynthesis screening BI Accession Number(s): [id number] cc: Sima Kaur Reason For Exam: routine screening EXAMINATION: MM SCREENING DIGITAL BREAST TOMOSYNTHESIS, BILATERAL CLINICAL INFORMATION: Screening. Asymptomatic. COMPARISON: Mammography: Comparison is made with available priors TECHNIQUE: Digital breast mammography with tomosynthesis is performed in both the craniocaudal and mediolateral oblique views along with computer-aided detection (CAD). FINDINGS: The breasts are heterogeneously dense, which may obscure small masses. There are no significant masses, abnormal calcifications, or other abnormalities. MM/MM tomosynthesis screening BI IMPRESSION: No mammographic evidence of malignancy. ASSESSMENT: BI-RADS Category 1: Negative RECOMMENDATION: Routine annual mammography screening. 1 year F/U This examination should not preclude the clinical evaluation of a suspicious palpable abnormality. This patient's information was entered into a reminder system with a target due date for their next mammogram. Electronically signed by: Felicia English DO 08/23/2025 10:13 AM [facility] Dictated By: Felicia English DO Signed By: <Electronically signed by Felicia English DO in OV> 08/23/25 1013 DD/ 1135 TD/TT: 08/19/25 1136 Mems Integration Engineer: Sima Kaur MD IMG BI PROCEDURES Final Result * (ABNORMAL) POCT Hgb A1c (07/08/2025 3:55 PM EDT) [facility] Hemoglobin A1C 7.9(A) 4.0 - 5.7 % QC Media Lot # [id number] Lot# Expiration Date ,078,[id number] Blood 07/08/2025 3:55 PM EDT Sima Kaur MD POINT OF CARE TEST ENTER/EDIT ORDERABLES Final Result * Hepatitis C Antibody with Reflex to HCV, RNA, Quantitative, Real-Time PCR (05/25/2024 11:37 AM EDT) [facility] Hepatitis C Antibody Nonreactive Nonreactive [facility] Comment:Antibodies to HCV no t detected; does not exclude early acuteHCV infection. Blood Venous blood specimen / Unknown 05/25/2024 11:37 AM EDT 05/25/2024 1:24 PM EDT Sima Kaur MD LAB BLOOD ORDERABLES Final Res ult [facility] [address] [place] [phone] * (ABNORMAL) Lipid Panel, Standard (11/24/2023 12:45 PM EST) [facility] Triglycerides 186(H) <150 mg/dL [facility] Comment:Desirable Triglyceri de: less than 150 mg/dLBorderline High Triglyceride 150-199 mg/dLHigh Triglyceride: 200-499 mg/dLVery High Triglyceride: greater than or equal to 5OO mg/dL Cholesterol 103 <200 mg/dL [facility] Comment:Desirable Cholestero l: less than 200 mg/dLBorderline High Cholesterol: 200-239 mg/dLHigh Cholesterol: greater than 239 mg/dL LDL Cholesterol Calculated 37 <100 mg/dL [facility] Comment:Desirable LDL: less than 100 mg/dLNear Optimal/Above Optimal LDL: 110- 129 mg/dLBorderline High LDL: 130-159 mg/dLHigh LDL: 160-189 mg/dLVery High LDL: greater than or equal to 190 mg/dL HDL Cholesterol 29(L) >40 mg/dL [facility] Comment:Desirable HDL: great er than 40 mg/dL Note: This HDL assay may give artificially low results in patients with liver disease. Blood Venous blood specimen / Unknown 11/24/2023 12:45 PM EST 11/24/2023 1:10 PM EST us Sima Kaur MD LAB BLOOD ORDERABLES Final Res ult [facility] [address] [place] [address] [phone] * HPV mRNA E6/E7 w/Reflex to HPV Genotypes 16, 18/45 (2023 12:00 AM EDT) HPV nRNA E6/E7 Not Detected Not Detected [facility] Comment:Methodology: Transcr iption-Mediated AmplificationThis assay detects E6/E7 viral messenger RNA (mRNA) from 14high-risk HPV types (16,18,31,33,35,39,45,51,52,56,58,59,66,68).Cervical sources are required for HPV testing.If a vaginal source from a patient who has had atotal hysterectomy with removal of cervix wassubmitted, please contact the testing laboratoryfor alternative testing options.For additional information, please refer [email or web address].[email or web address]/[email or web address](This link if provided for information/educational purposes only.)THIS TEST WAS PERFORMED AT:[facility] [place] [id number] NEWMAN MD HPV mRNA E6/E7 TNP [facility] HPV 16 RNA [facility] HPV 18/45 RNA [facility] 2023 06/16/2023 1:5 0 PM EDT Sima Kaur MD LAB CYTOLOGY ORDERABLES Final Result [facility] [address] [place] [phone] * Pap Smear (2023) 2023 06/16/2023 1:5 0 PM EDT Narrative [facility] - 06/28/2023 2:14 PM EDT ----- ------- Name: Fortino Luzette Age/Sex: 68/F : 1955 Unit#: [id number] Attend Dr: Sima Kaur Re06/13/23 Status: [facility] Location: [facility] Disch: ----- ------- SPEC : [id number] RECD: 06/16/23-1350 STATUS: FAWAD KIRBY NUM: [id number] CAMI: 06/13/23- SUBM DR: Sima Kaur ENTERED: 06/16/23-5068 SP TYPE: Pap Smr OT DR: ORDERED: Pap Smear Interpretation Satisfactory for evaluation. Negative for intraepithelial lesion or malignancy. HPV mRNA E6/E7: NOT DETECTED This assay detects E6/E7 viral messenger RNA (mRNA) from 14 high-risk HPV types (16, 18, 31, 33, 35, 39, 45, 51, 52, 56, 58, 59, 66, 68) HPV testing performed by [employer], [place], [place]. See reference laboratory portion of the EMR for entire report. Clinical Information LMP:Unknown date Previous PAP test:Unknown date/findings Material Received ThinPrep-Vaginal/Cervical ----- ------- Signed (signature on file) Lin Davis Darlene 06/28/23 1414 ----- ------- END OF REPORT Sima Kaur MD LAB CYTOLOGY ORDERABLES Final Result [facility] [address] [place] [phone] * Colonoscopy (12/18/2022) Anatomical Region Laterality Modality Endoscopy Impressions 12/18/202212/2022 Had a TA x 2 + hyperplastic polyp Historical Provider ENDOSCOPY PROCEDURE ORDER RICARDO Final Result from Last 3 Months or Most Recently Relevant to Health Maintenance Additional Health Concerns Active Problems Noted Date [...] 09/22/2025 Patient has chronic kidney disease 09/22/2025 Insurance [id number] JULIO Sheehan21 Care Teams Dough Cutting Machine Operator Relationship Specialty Start Date End Date Sima Kaur MD [address] [place] [phone] PCP - General Family Medicine 11/28/20
--- OUTSIDE RECORDS SUMMARY | 2025-10-05 10:37 | XMS_ITS | Encounter Summary ---
Author Organization [employer] Address [address] [place] [address] [place] [address] Care Team Providers Care Software Product Specialist Name Role Phone Sima Kaur MD Primary Care Provider [phone] Encounter Details Date Type Department Care Team (Late Contact Info) Description 06/20/2023 Orders Only [facility] [address] [place] [address] [phone] Sima Kaur MD [address] [place] [address] [phone] Poison abraham dermatitis (Primary Dx) Social History [...] Info) Description 10/18/2025 10:15 AM EST Telemedicine [facility] [address] [place] [address] [phone] Sima Kaur MD [address] [place] [address] [phone] 02/02/2026 1:00 PM EDT Office Visit [facility] [address] [place], [place] [phone] Maria Antonia Mueller, OD 230 [place], [place] [phone] documented as of this encounter Visit Diagnoses Diagnosis Poison abraham dermatitis- Primary documented in this encounter Additional Health Concerns Assessment Noted Time PHQ-9 Depression Total Score: 9 03/03/20 23 9:28 AM EDT documented as of this encounter Care Teams Software Product Specialist Relationship Specialty Start Date End Date Sima Kaur MD 230 [place], [place] [phone] PCP - General Family Medicine 11/28/20 documented as of this encounter
== END 2025-10-05 10:20 | disposition home or self-care (01) ==
LOC: HO.HGI 09:21
PROVIDERS: Visit Provider Nurse Practitioner
DX: K21.9 Gastro-esophageal reflux disease without esophagitis (principal); R13.10 Dysphagia, unspecified; K90.0 Celiac disease
CPT/HCPCS: 99213

== ENCOUNTER → 2025-10-05 09:20 | Outpatient (BNVA) | payer OTHER, SELFPAY | PROVIDERS: Visit Provider Nurse Practitioner | DX: K21.9 Gastro-esophageal reflux disease without esophagitis (principal); K90.0 Celiac disease; R13.10 Dysphagia, unspecified; Z79.85 Long-term (current) use of injectable non-insulin antidiabetic drugs; R14.0 Abdominal distension (gaseous); F17.210 Nicotine dependence, cigarettes, uncomplicated; Z98.890 Other specified postprocedural states | CPT/HCPCS: 99212 ==

== ENCOUNTER 2025-10-10 15:40 | Outpatient (REF) | payer OTHER, SELFPAY ==
--- OUTSIDE RECORDS SUMMARY | 2025-10-10 18:37 | XMS_ITS | Encounter Summary ---
Author Organization [employer] Address 75 [facility] 7 [place] [address] Care Team Providers Care District Court Bailiff Name Role Phone Sima Kaur MD Primary Care Provider [phone] Reason for Visit * Reason Comments Med Refill Encounter Details Date Type Department Care Team ([facility] st Contact Info) Description 05/31/2025 Refill [facility] [address] [place], [place] [phone] Sima Kaur MD 230 [place] [address] Social History Tobacco Use Types Packs/Day Years [...] Info) Description 10/18/2025 10:15 AM EST Telemedicine [facility] [address] [place] [address] Sima Kaur MD 230 [place] [address] 02/02/2026 1:00 PM EDT Office Visit [facility] [address] [place] [address] Ervin, Maria Antonia, OD 230 [place] [address] documented as of this encounter Visit Diagnoses Not on filedocumented in this encounter Additional Health Concerns Assessment Noted Time PHQ-9 Depression Total Score: 14 025 3:41 PM EDT documented as of this encounter Care Teams District Court Bailiff Relationship Specialty Start Date End Date Sima Kaur MD 230 [place] [address] PCP - General Family Medicine 11/28/20 documented as of this encounter
--- OUTSIDE RECORDS SUMMARY | 2025-10-10 18:37 | XMS_ITS | Encounter Summary ---
Author Organization [employer] Address 75 [facility] 7 [place] [address] Care Team Providers Care Telephone Service Representative Name Role Phone Sima Kaur MD Primary Care Provider [phone] Reason for Visit * Reason Comments Med Refill Encounter Details Date Type Department Care Team ([facility] st Contact Info) Description 10/04/2025 Refill [facility] 230 [place], [place] [phone] Sima Kaur MD 230 [place] [address] Social History Tobacco Use Types Packs/Day Years [...] Info) Description 10/18/2025 10:15 AM EST Telemedicine [facility] 230 [place] [address] Sima Kaur MD [address] [place] [address] 02/02/2026 1:00 PM EDT Office Visit [facility] [address] [place] [address] Ervin, Maria Antonia, OD 230 [place] [address] documented as of this encounter Goals Goal [...] documented as of this encounter Care Teams Telephone Service Representative Relationship Specialty Start Date End Date Sima Kaur MD [address] [place] [phone] PCP - General Family Medicine 11/28/20 documented as of this encounter
--- OUTSIDE RECORDS SUMMARY | 2025-10-10 18:37 | XMS_ITS | Encounter Summary ---
Author Organization [facility] Address 100 [facility] 200 [place] [address] Phone Care Team Providers Care Clinical Study Manager Name Role Phone Sima Kaur MD Primary Care Provider [phone] Reason for Visit * Reason Comments Med Refill Encounter Details Date Type Department Care Team (Late Contact Info) Description 10/09/2025 Refill [facility] [address] [place] [address] Saman Wynne MD [address] [facility] 204 [place] [address] Social History Tobacco Use Types Packs/Day Years Used Date Smoking Tobacco: Every Day Cigarettes 0.5 43 Started: 10/20/1982 Smokeless Tobacco: Never Alcohol Use [...] Visit [facility] [address] [place] [address] Fazal Ohara MD [address] [facility] 204 [place] [address] documented as of this encounter Visit Diagnoses Not on filedocumented in this encounter Care Teams Clinical Study Manager Relationship Specialty Start Date End Date Sima Kaur MD [address] [place] [address] PCP - General Client Leader 05/24/21 documented as of this encounter
--- OUTSIDE RECORDS SUMMARY | 2025-10-10 18:37 | XMS_ITS | Clinical Summary ---
Author Organization [facility] Address [address] [place] [address], [place] [address] Care Team Providers Care Carton Marker Machine Name Role Phone Sima Kaur MD Primary Care Provider [phone] Allergies Active Allergy Reactions Criticality Noted Date [...] mouth once daily 90 tablet 025 Active Farxiga 5 MG tablet Take 1 tablet by mouth once daily 30 tablet 025 Active Dapagliflozin Propanediol 5 MG [...] Encounters Date Type Department Care Team Description 10/09/2025 Refill [facility] [address] [place] [address] Saman Wynne MD 09/27/2025 Refill [facility] [address] [place] [address] Fazal Ohara MD 08/23/2025 Refill [facility] [address] [place] [address] Fazal Ohara MD 07/25/2025 Refill [facility] [address] [place] [address] Fazal Ohara MD 07/12/2025 Refill [facility] [address] [place] [address] Fazal Ohara MD from Last 3 Months [...] [facility] [address] [place] [address] Fazal Ohara MD [address] [facility] [address] [place] [phone] Health Maintenance Due Date Last Done Comments Breast Cancer Screening 1955 Colorectal Cancer Screening: Annual FOBT 2006 Colorectal Cancer Screening: Colonoscopy 2006 Colorectal Cancer Screening: Sigmoidoscopy 2006 Diabetes: Ophthalmology Exam 11/19/2020 Diabetes: Pedal Pulse Checked 11/19/2020 Diabetes: Sensory Foot Exam 11/19/2020 Diabetes: Visual Foot Exam 11/19/2020 Diabetes: Hemoglobin A1C 10/07/2025 025, 01/19/2025, 08/16/2024, Additional history exists Hepatitis B Vaccine Aged Out 08/18/2018, 02/13/2018, 04/04/2016 No longer eligible based on patient's age to complete this topic Pneumococcal Vaccine: 50+ Years Completed 05/09/2023, 10/28/2017 Pneumococcal Vaccine: Peds (0 to 5 Years) and At-Risk Patients (6 to 49 Years) Discontinued 05/09/2023, 10/28/2017 Influenza Vaccine Completed 09/20/2025, , 08/03/2021, Additional history exists Procedures Procedure Name Priority Date/Time Associated Diagnosis [...] % PVNMA 07/12/2020 us [facility] [id number] LICITED RESULTS Final Result PVNMA from Last 3 Months or Most Recently Relevant to Health Maintenance Insurance [facility] ([id number]) [facility] ([id number]) Care Teams Carton Marker Machine Relationship Specialty Start Date End Date Sima Kaur MD [address] [place] [address] PCP - General Recreation Activities Coordinator 05/24/21
--- OUTSIDE RECORDS SUMMARY | 2025-10-10 18:37 | XMS_ITS | Encounter Summary ---
Author Organization [employer] Address [address] [place] [address] 7[place] [address] Care Team Providers Care Optical Engineer Name Role Phone Sima Kaur MD Primary Care Provider [phone] Encounter Details Date Type Department Care Team (Late Contact Info) Description 01/10/2023 Abstract [facility] [address] [place] [address] [phone] Sima Kaur MD [address] [place] [phone] Social History Tobacco Use Types Packs/Day Years [...] Info) Description 10/18/2025 10:15 AM EST Telemedicine [facility] 230 [place], [place] [phone] Sima Kaur MD [address] [place] [address] [phone] 02/02/2026 1:00 PM EDT Office Visit [facility] [address] [place] [address] [phone] Maria Antonia Mueller OD 230 [place] [address] documented as of this encounter Procedures Procedure [...] ORDERABLES F inal Result Performing Organization Address City/State/[facility] Co de Phone Number [address], [place] [address] documented in this encounter Visit Diagnoses Not on filedocumented in this encounter Care Teams Optical Engineer Relationship Specialty Start Date End Date Sima Kaur MD 230 [place] [address] PCP - General Family Medicine 11/28/20 documented as of this encounter
--- OUTSIDE RECORDS SUMMARY | 2025-10-10 18:38 | XMS_ITS | Encounter Summary ---
Author Organization [employer] Address [address] [place] [address] 7[place] [address] Care Team Providers Care Shirt Cleaner Name Role Phone Sima Kaur MD Primary Care Provider [phone] Encounter Details Date Type Department Care Team (Late Contact Info) Description 06/20/2023 Orders Only [facility] [address] [place] [address] [phone] Sima Kaur MD [address] [place] [address] [phone] Poison abraham dermatitis (Primary Dx) Social History [...] Info) Description 10/18/2025 10:15 AM EST Telemedicine [facility] [address] [place] [address] [phone] Sima Kaur MD [address] [place] [address] [phone] 02/02/2026 1:00 PM EDT Office Visit [facility] [address] [place], [place] [phone] Maria Antonia Mueller, OD 230 [place], [place] [phone] documented as of this encounter Visit Diagnoses Diagnosis Poison abraham dermatitis- Primary documented in this encounter Additional Health Concerns Assessment Noted Time PHQ-9 Depression Total Score: 9 03/03/20 23 9:28 AM EDT documented as of this encounter Care Teams Shirt Cleaner Relationship Specialty Start Date End Date Sima Kaur MD 230 [place], [place] [phone] PCP - General Family Medicine 11/28/20 documented as of this encounter
--- OUTSIDE RECORDS SUMMARY | 2025-10-10 18:38 | XMS_ITS | Encounter Summary ---
Author Organization [employer] Address [address] [facility] [address] 7[address] [place] [address] Care Team Providers Care Public Affairs Officer Name Role Phone Sima Kaur MD Primary Care Provider [phone] Encounter Details Date Type Department Care Team (Late st Contact Info) Description 03/07/2025 Orders Only [facility] 230 [place], [place] [phone] Sima Kaur MD 230 [place], [place] [phone] Social History Tobacco Use Types Packs/Day Years [...] Info) Description 10/18/2025 10:15 AM EST Telemedicine [facility] 230 [place] [address] Sima Kaur MD 230 [place] [address] 02/02/2026 1:00 PM EDT Office Visit [facility] [address] [place] [address] Ervin, Maria Antonia, OD 230 [place] [address] documented as of this encounter Procedures Procedure [...] documented as of this encounter Care Teams Public Affairs Officer Relationship Specialty Start Date End Date Sima Kaur MD [address] [place] [address] PCP - General Family Medicine 11/28/20 documented as of this encounter
--- OUTSIDE RECORDS SUMMARY | 2025-10-10 18:38 | XMS_ITS | Encounter Summary ---
Author Organization [facility] Address 100 [facility] 200 [place] [address] Phone Care Team Providers Care Center Hole Reamer Name Role Phone Sima Kaur MD Primary Care Provider + [phone] Reason for Visit * Reason Comments Med Refill Encounter Details Date Type Department Care Team (Late Contact Info) Description 06/03/2022 Refill [facility] 200 [place] [phone] Chester Alves MD [address] [address] Social History Tobacco Use Types [...] [facility] [address] [place] [address] Fazal Ohara MD 25[address] [facility] 204 [place] [address] documented as of this encounter Visit Diagnoses Not on filedocumented in this encounter Care Teams Center Hole Reamer Relationship Specialty Start Date End Date Sima Kaur MD [address] [place] [address] PCP - General Cushion Former 05/24/21 documented as of this encounter
--- OUTSIDE RECORDS SUMMARY | 2025-10-10 18:38 | XMS_ITS | Encounter Summary ---
Author Organization [employer] Address [address] [place] [address], [place] [address] Care Team Providers Care Manufacturers Agent Name Role Phone Sima Kaur MD Primary Care Provider [phone] Reason for Referral * Consultation (Routine) - Closed Specialty Diagnoses / Procedures Referred By Contac t Referred To Contact Neurosurgery Diagnoses Cervical spine pain Cervical radiculopathy due to degenerative joint disease of spine Sima Kaur MD [address] [place] [phone] Phone: tel: fax: Sheridan Valentine MD [address] [place] [address], [address] [place] [address] Phone: tel: fax: Referral ID Status Reason Start Date Expiration Date V isits Requested Visits Authorized [id number] Closed Specialty Services Required 05/28/2024 05/28/2025 1 0 Encounter Details Date Type Department Care Team (Late st Contact Info) Description 05/28/[address] [facility] 230 [place], [place] [phone] Sima Kaur MD 230 [place], [place] [phone] Cervical spine pain (Primary Dx); Cervical radiculopathy [...] Info) Description 10/18/2025 10:[address] [facility] 230 [place] [address] Sima Kaur MD [address] [place] [address] 02/02/2026 1:00 PM EDT Office Visit [facility] [address] [place] [address] Maria Antonia Mueller, OD 230 [place] [address] Scheduled Referrals Name Type Priority Associated Diagnoses [...] documented as of this encounter Care Teams Manufacturers Agent Relationship Specialty Start Date End Date Sima Kaur MD [address] [place] [address] PCP - General Family Medicine 11/28/20 documented as of this encounter
--- OUTSIDE RECORDS SUMMARY | 2025-10-10 18:38 | XMS_ITS | Encounter Summary ---
Author Organization [facility] Address [address] [facility] 200 [place] [address] Phone Care Team Providers Care Welfare Director Name Role Phone Sima Kaur MD Primary Care Provider + [phone] Reason for Visit * Reason Comments Med Refill Encounter Details Date Type Department Care Team (Late Contact Info) Description 07/03/2022 Refill [facility] [address] [place] [address] Blayne Corral MD [address] [place] [address] Social History Tobacco Use Types Packs/Day Years [...] Office Visit [facility] [address] [place] [address] Fazal Ohara MD 5[address] [facility] 204 [place] [address] documented as of this encounter Visit Diagnoses Not on filedocumented in this encounter Care Teams Welfare Director Relationship Specialty Start Date End Date Sima Kaur MD [address] [place], [place] [phone] PCP - General Technicians And Trades Workers 05/24/21 documented as of this encounter
--- OUTSIDE RECORDS SUMMARY | 2025-10-10 18:38 | XMS_ITS | Encounter Summary ---
Author Organization [facility] Address [address] [facility] 200 [place] [address] Phone Care Team Providers Care Roll Sheeting Cutter Name Role Phone Sima Kaur MD Primary Care Provider [phone] Reason for Visit * Reason Comments Med Refill Encounter Details Date Type Department Care Team (Late Contact Info) Description 05/12/2023 Refill [facility] [address] [place] [address] Blayne Corral MD [address] [place] [address] Social History Tobacco Use Types Packs/Day Years [...] Visit [facility] [address] [place] [address] Fazal Ohara MD [address] [facility] 204 [place] [address] documented as of this encounter Visit Diagnoses Not on filedocumented in this encounter Care Teams Roll Sheeting Cutter Relationship Specialty Start Date End Date Sima Kaur MD [address] [place], [place] [phone] PCP - General Health And Safety Inspector 05/24/21 documented as of this encounter
--- OUTSIDE RECORDS SUMMARY | 2025-10-10 18:38 | XMS_ITS | Clinical Summary ---
Author Organization [employer] Address [address] [place] [address] 7 [place] [address] Care Team Providers Care Value Analysis Coordinator Name Role Phone Sima Kaur MD Primary Care Provider [phone] Allergies Active Allergy Reactions Criticality Noted Date [...] Much improved with Emgality Continue followup at [facility] neurology Encouraged wear of CPAP for help with SANTIAGO and BP Assessment & Plan (10/15/2022 11:53 AM EST): Much improved with Emgality Continue followup at 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 [place] [address] Sima Kaur MD 09/27/2025 Orders Only GENERIC EXTERNAL DATA DEPARTMENT Provider, Generic External Data 09/22/2025 Telephone [facility] [place] [address] Sima Kaur MD Prior Authorization (PA: Diazepam) 09/21/2025 Travel 09/20/2025 10:30 AM EST Office Visit [facility] [place] [address] Sima Kaur MD Type 2 diabetes mellitus [...] dependence without complication 09/20/2025 Travel 09/19/2025 Telephone [facility] [place] [address] Sima Kaur MD Chart Prep 09/06/2025 Patient Outreach [facility] [place] [address] Sima Kaur MD Pre-visit Planning (SDOH screening completed on 01/10/2025) 09/04/2025 Refill [facility] [place] [address] Sima Kaur MD 08/02/2025 Refill [facility] [place] [address] Sima Kaur MD from Last 3 Months [...] [facility] [address] [place] [address] Sima Kaur MD [address] [place] [address] 02/02/2026 1:00 PM EDT Office Visit [facility] OPTOMETRY [address] [place] [address] Maria Antonia Mueller, OD [address] [place] [address] Health Maintenance Due Date Last Done Comments [...] their type 2 diabetes No Linda Casiano Weekly blood pressure task [...] Care Plan Patient has chronic kidney disease Waqar Avila Procedures Procedure Name Priority Date/Time Associated Diagnosis Comments HEMATOXYLIN AND EOSIN STAIN Routine 09/27/2025 8:54 AM EST GLUCOSE, WHOLE BLOOD Routine 09/27/2025 7:34 AM EST POCT GLUCOSE (CPT-61471) Routine 09/20/2025 10:45 AM EST Type 2 [...] 8:54 AM EST 09/27/2025 9:45 AM EST [facility] - 09/29/2025 4:03 PM EST ----- ------- Name: Stephanie Luz Age/Sex: 70/F : 1955 Unit#: [id number] Attend Dr: Johanna Kuo MD Re09/27/25 Status: [facility] Location: [facility] Disch: ----- ------- SPEC : [id number] RECD: 09/27/25 STATUS: FAWAD KIRBY NUM: [id number] CAMI: 09/27/25 [facility] DR: Johanna Kuo MD ENTERED: 09/27/25 [...] Name: Stephanie Luz Age/Sex: 70/F : 1955 [facility]#: [id number] Unit#: [id number] Attend Dr: Johanna Kuo MD Re09/27/25 Status: [facility] Location: [facility] Disch: ----- ------- SPEC : [id number] RECD: 09/27/25 STATUS: FAWAD KIRBY NUM: [id number] CAMI: 09/27/[address]: Johanna Kuo MD ENTERED: 09/27/25 SP TYPE: Surgical OTHR DR: Sima Kaur ORDERED: HE Stain/9, Gross Micro L4/3, T Cell, IHC/3, Special st. 2/2, H. pylori/2, AB/PAS/2 Gross Description (Continued) for microscopic examination, 1 piece in cassette C. ([facility]) Special studies ordered and performed: Immunostain for H. pylori on B1 and C1; immunostain for CD3 on A1; AB/PAS stain on A1 and C1. IHC S/NG Disclaimer NOTE: Unless otherwise stated, all tissue is formalin-fixed and paraffin-embedded. Some or all of the immunohistochemical tests reported herein may have been developed and their performance characteristics determined by [facility]. They have not been cleared or approved by the U.S. Food and Drug Administration (FDA). However, the FDA has determined that such clearance or approval is not necessary. This laboratory is certified under the Clinical Laboratory Improvement Amendments of 1988 (CLIA) as qualified to perform high complexity clinical laboratory testing. Copies To: [place] [address] Johanna Kuo MD [facility] [address] [place] [address] [email or web address] ----- ------- Signed (signature on file) Azul Wagner MD 09/29/25 1603 ----- ------- END OF REPORT Generic External Data Provider LAB BLOOD ORDERAB LES Final Result Performing Organization Address [facility]/ZIP Co de Phone Number [facility] [address] [place] [phone] * (ABNORMAL) Glucose, Whole Blood (09/27/2025 7:34 AM EST) Glucose, Whole Blood 197(H) 60 - 115 mg/dL [facility] Comment:METER #: [id number] 09/27/2025 7:34 AM EST 09/27/2025 7:40 AM EST Generic External Data Provider LAB BLOOD ORDERAB LES Final Result Performing Organization Address [facility] Co de Phone Number [facility] [address] [place] [phone] * (ABNORMAL) POCT Glucose (09/20/2025 10:45 AM EST) Glucose Blood, POC 205(A) 60 - 200 mg/dL Blood Capillary blood specimen / Unknown 09/20/2025 10:45 AM EST Sima Kaur MD POINT OF CARE TEST ENTER/EDIT ORDERABLES Final Result * BI Mammogram Screening Tomosynthesis Bilateral (08/19/2025 11:35 AM EDT) Anatomical Region Laterality Modality Breast Bilateral Mammography 08/19/2025 11:3 5 AM EDT Narrative 08/23/2025 10:16 AM EST [facility] [address] [place] [address] Mammography Report Signed Patient: Stephanie Luz MR#: [id number] : 1955 Acct:[id number] Age/Sex: 70 / F ADM Date: 08/19/25 Loc: [facility] Attending Dr: Sima Kaur MD Ordering Physician: Sima Kaur Results: 1Negative Date of Service: 08/19/25 Follow Up: 1 Year From Orig inal Mammogram Procedure(s): MM tomosynthesis screening BI Accession Number(s): [id number] cc: Sima Kaur Reason For Exam: routine [...] by: Felicia English DO 08/23/2025 10:13 AM [facility] Dictated By: Felicia English DO Signed By: <Electronically signed by Felicia Engilsh DO in OV> 08/23/25 1013 DD/ 1135 TD/TT: 08/19/25 1136 Sap Business Analyst: Procedure Note Donotuseinterpreter, Image - 08/23/2025 [facility] [address] [place], [place] [address] Mammography Report Signed Patient: Stephanie LuzMR#: [id number] : 1955cct:[id number] Age/Sex: 70 / FADM Date: 08/19/25 Loc: MAMMO Attending Dr: Sima Kaur MD Ordering Physician: Kleber Kaurults: 1Negative Date of Service: 08/19/25Follow Up: 1 Year From Orig inal Mammogram Procedure(s): MM tomosynthesis screening BI Accession Number(s): [id number] cc: Sima Kaur Reason For Exam: routine [...] by: Felicia English DO 08/23/2025 10:13 AM [facility] Dictated By: Felicia English DO Signed By: <Electronically signed by Felicia English DO in OV> 08/23/25 1013 DD/ 1135 TD/TT: 08/19/25 1136 Sap Business Analyst: Sima Kaur MD IMG BI PROCEDURES Final Result * (ABNORMAL) POCT Hgb A1c (07/08/2025 3:55 PM EDT) Hemoglobin A1C 7.9(A) 4.0 - 5.7 % QC Media Lot # [id number] Lot# Expiration Date [id number] Blood 07/08/2025 3:55 PM EDT Sima Kaur MD POINT OF CARE TEST ENTER/EDIT ORDERABLES Final Result * Hepatitis C Antibody with Reflex to HCV, RNA, Quantitative, Real-Time PCR (05/25/2024 11:37 AM EDT) Hepatitis C Antibody Nonreactive Nonreactive [facility] Comment:Antibodies to HCV no t detected; does not exclude early acuteHCV infection. Blood Venous blood specimen / Unknown 05/25/2024 11:37 AM EDT 05/25/2024 1:24 PM EDT Sima Kaur MD LAB BLOOD ORDERABLES Final Res ult Performing Organization Address [facility] Co de Phone Number [facility] [address] [place] [phone] * (ABNORMAL) Lipid Panel, Standard (11/24/2023 12:45 PM EST) Triglycerides 186(H) <150 mg/dL [facility] Comment:Desirable Triglyceri de: less than 150 mg/dLBorderline High Triglyceride 150-199 mg/dLHigh Triglyceride: 200-499 mg/dLVery High Triglyceride: greater than or equal to 5OO mg/dL Cholesterol 103 <200 mg/dL [facility] Comment:Desirable Cholestero l: less than 200 mg/dLBorderline High Cholesterol: 200-239 mg/dLHigh Cholesterol: greater than 239 mg/dL LDL Cholesterol Calculated 37 <100 mg/dL [facility] Comment:Desirable LDL: less than 100 mg/dLNear Optimal/Above Optimal LDL: 110- 129 mg/dLBorderline High LDL: 130-159 mg/dLHigh LDL: 160-189 mg/dLVery High LDL: greater than or equal to 190 mg/dL HDL Cholesterol 29(L) >40 mg/dL [facility] Comment:Desirable HDL: great er than 40 mg/dL Note: This HDL assay may give artificially low results in patients with liver disease. Blood Venous blood specimen / Unknown 11/24/2023 12:45 PM EST 11/24/2023 1:10 PM EST us Sima Kaur MD LAB BLOOD ORDERABLES Final Res ult Performing Organization Address [facility] Co de Phone Number [facility] [address] [place] [phone] * HPV mRNA E6/E7 w/Reflex to HPV Genotypes 16, 18/45 (2023 12:00 AM EDT) HPV nRNA E6/E7 Not Detected Not Detected [facility] Comment:Methodology: Transcr iption-Mediated AmplificationThis assay detects E6/E7 viral messenger RNA (mRNA) from 14high-risk HPV types (16,18,31,33,35,39,45,51,52,56,58,59,66,68).Cervical sources are required for HPV testing.If a vaginal source from a patient who has had atotal hysterectomy with removal of cervix wassubmitted, please contact the testing laboratoryfor alternative testing options.For additional information, please refer [email or web address]/faq/FAH526v0(This link if provided for information/educational purposes only.)THIS TEST WAS PERFORMED AT:[facility] [place] [id number] NEWMAN MD HPV mRNA E6/E7 [facility] HPV 16 RNA [facility] HPV 18/45 RNA [facility] 2023 06/16/2023 1:5 0 PM EDT Sima Kaur MD LAB CYTOLOGY ORDERABLES Final Result [facility] [address] [place] [phone] [phone] * Pap Smear (2023) 2023 06/16/2023 1:5 0 PM EDT Narrative [facility] - 06/28/2023 2:14 PM EDT ----- ------- Name: Stephanie Luz Age/Sex: 68/F : 1955 Unit#: [id number] Attend Dr: Sima Kaur Re06/13/23 Status: DEP REF Location: [facility] Disch: ----- ------- SPEC : [id number] RECD: 06/16/23-1349 STATUS: FAWAD KIRBY NUM: [id number] CAMI: 06/13/23- SUBM DR: Sima Kaur ENTERED: 06/16/23649 SP TYPE: Pap Smr OTHR DR: ORDERED: Pap Smear Interpretation Satisfactory for evaluation. Negative for intraepithelial lesion or malignancy. HPV mRNA E6/E7: NOT DETECTED This assay detects E6/E7 viral messenger RNA (mRNA) from 14 high-risk HPV types (16, 18, 31, 33, 35, 39, 45, 51, 52, 56, 58, 59, 66, 68) HPV testing performed by [facility], [place], [place]. See reference laboratory portion of the EMR for entire report. Clinical Information LMP:Unknown date Previous PAP test:Unknown date/findings Material Received ThinPrep-Vaginal/Cervical ----- ------- Signed (signature on file) Lin Colon 06/28/23 1414 ----- ------- END OF REPORT Sima Kaur MD LAB CYTOLOGY ORDERABLES Final Result Performing Organization Address City/State/[facility] Co de Phone Number [facility] [address] [place] [phone] * Colonoscopy (12/18/2022) Anatomical Region Laterality [...] Patient has chronic kidney disease 09/22/2025 Insurance [facility] [employer] (O D-SNP) TIMOTHY GARCÍA [id number] [address] [place] Care Teams Value Analysis Coordinator Relationship Specialty Start Date End Date Sima Kaur MD [address] [place] [phone] PCP - General Family Medicine 11/28/20
--- OUTSIDE RECORDS SUMMARY | 2025-10-10 18:38 | XMS_ITS | Encounter Summary ---
Author Organization [facility] Address [address] [facility] [address] [place] [address] Phone Care Team Providers Care It Service Delivery Manager Name Role Phone Sima Kaur MD Primary Care Provider [phone] Reason for Visit * Reason Comments Med Refill Encounter Details Date Type Department Care Team (Late Contact Info) Description 06/11/2023 Refill [facility] [address] [place] [phone] Blayne Corral MD [address] [place] [address] Social History Tobacco Use Types Packs/Day Years [...] Office Visit [facility] [address] [place] [phone] Fazal Ohara MD [address] [facility] [address] [place] [address] documented as of this encounter Visit Diagnoses Not on filedocumented in this encounter Care Teams It Service Delivery Manager Relationship Specialty Start Date End Date Sima Kaur MD [address] [place], [place] [phone] PCP - General Manufacturing Engineering Director 05/24/21 documented as of this encounter
[2025-10-10 18:40] LABS: Cholesterol 71 mg/dL (<200); HDL Cholesterol 35 mg/dL (>40); Triglycerides 172 mg/dL (<150)
== END 2025-10-10 15:41 | disposition home or self-care (01) ==
LOC: HO.HHCL 15:40
PROVIDERS: Nurse Practitioner Family; PCP General Practice; Visit Provider General Practice
DX: M18.11 Unilateral primary osteoarthritis of first carpometacarpal joint, right hand (principal); E11.21 Type 2 diabetes mellitus with diabetic nephropathy; E55.9 Vitamin D deficiency, unspecified
CPT/HCPCS: 36415; 80061; 82306; 83036